=== PATIENT | female | born 1945 | race Caucasian/White ===

== ENCOUNTER 2017-07-27 05:30 | Emergency (ER) | payer OTHER ==
--- NOTE | 2017-07-27 06:13 | EDPHYS ---
Physician Documentation [facility] Name: Amber Acosta Age: 71 yrs Sex: Female : 1945 Arrival Date: 07/27/2017 Time: 05:31 Bed 15 Private MD: Lorraine Donnelly ED Physician Anish Lugo HPI: 07/27 05:59 This 71 yrs old Female presents to ER via Ambulatory with complaints of Leg kb Pain - Right. 05:59 The patient presents with pain that is chronic, and tenderness. The symptoms are kb located in the right low back. Onset: The symptoms/episode began/occurred last night. The pain does not radiate. Associated signs and symptoms: Pertinent positives: none. The problem was sustained from a chronic condition. Modifying factors: The patient symptoms are alleviated by nothing, the patient symptoms are aggravated by any movement. Severity of symptoms: At their worst the symptoms were mild, moderate, in the emergency department the symptoms are unchanged. The patient has not experienced similar symptoms in the past. The patient has not recently seen a physician. Pt states she worked in the yard yesterday and made her chronic back pain flare up. States right lower back pain that radiates down right leg. Has had this multiple times in the past and normally takes tylenol for it, but it did not help this time. Also reports ant bits to right ankle that have been there for a month. . Historical: - Allergies: 05:47 Bees; lp1 05:47 Codeine; lp1 05:47 Levofloxacin; lp1 05:47 METRONIDAZOLE; lp1 05:47 PENICILLINS; lp1 05:47 SHELLFISH; lp1 05:47 sulfamethoxazole; lp1 05:47 TRIMETHOPRIM; lp1 05:47 Wasps; lp1 - Home Meds: 05:47 Ativan Oral [Active]; Metoprolol Tartrate Oral [Active]; Simvastatin Oral [Active]; lp1 - PMHx: 05:47 Anxiety; Depression; Diabetes - NIDDM; HTN, CVA; kidney cancer; Migraines; lp1 - PSHx: 05:47 Hysterectomy; lp1 - Immunization history:: Adult Immunizations up to date. - Social history:: Smoking status: Patient/guardian denies using tobacco. ROS: 05:56 Constitutional: Negative for fever, chills, and weight loss, Cardiovascular: Negative kb for chest pain, palpitations, and edema, Respiratory: Negative for shortness of breath, cough, wheezing, and pleuritic chest pain, Abdomen/GI: Negative for abdominal pain, nausea, vomiting, diarrhea, and constipation, MS/Extremity: Negative for injury and deformity, Neuro: Negative for headache, weakness, numbness, tingling, and seizure. 05:56 Back: Positive for pain at rest, pain with movement, radiated pain, of the right low back. 05:56 Skin: Positive for erythema, of the right ankle and right Achilles, ant bites. Exam: 05:56 Constitutional: This is a well developed, well nourished patient who is awake, alert, kb and in no acute distress. Head/Face: Normocephalic, atraumatic. Chest/axilla: Normal chest wall appearance and motion. Nontender with no deformity. No lesions are appreciated. Cardiovascular: Regular rate and rhythm with a normal S1 and S2. No gallops, murmurs, or rubs. Normal PMI, no JVD. No pulse deficits. Respiratory: Lungs have equal breath sounds bilaterally, clear to auscultation and percussion. No rales, rhonchi or wheezes noted. No increased work of breathing, no retractions or nasal flaring. Abdomen/GI: Soft, non-tender, with normal bowel sounds. No distension or tympany. No guarding or rebound. No evidence of tenderness throughout. MS/ Extremity: Pulses equal, no cyanosis. Neurovascular intact. Full, normal range of motion. Neuro: Awake and alert, GCS 15, oriented to person, place, time, and situation. Cranial nerves II-XII grossly intact. Motor strength 5/5 in all extremities. Sensory grossly intact. Cerebellar exam normal. Normal gait. 05:56 Back: pain, that is mild, that is moderate, ROM is normal, normal spinal alignment noted. 05:56 Skin: Appearance: normal except for affected area, multiple small wounds with surrounding erythema . Vital Signs: 05:45 BP 191 / 98; Pulse 62; Resp 18; Temp 97.2(TE); Pulse Ox 96% on R/A; Weight 70.31 kg; lp1 Height 5 ft. 2 in. (157.48 cm); Pain 6/10; 06:40 BP 167 / 89; Pulse 70; Resp 18; Temp 97.6(O); Pulse Ox 97% on R/A; ea 05:45 Body Mass Index 28.35 (70.31 kg, 157.48 cm) lp1 MDM: 05:51 Patient medically screened. kb 05:52 Data reviewed: vital signs, nurses notes. Data interpreted: Pulse oximetry: on room air kb is 96 %. Interpretation: normal. Counseling: I had a detailed discussion with the patient and/or guardian regarding: the historical points, exam findings, and any diagnostic results supporting the discharge/admit diagnosis, the need for outpatient follow up, a family practitioner, to return to the emergency department if symptoms worsen or persist or if there are any questions or concerns that arise at home. Administered Medications: 06:10 Drug: TORadol 60 mg Route: IM; Site: left gluteus; ea 06:52 Follow up: Response: No adverse reaction ea Disposition: 07/27/17 06:12 Discharged to Home. Impression: Local infection of the skin and subcutaneous tissue, unspecified, Sciatica, right side. - Condition is Stable. - Discharge Instructions: Sciatica, [id number], Wound Infection, [id number]. - Prescriptions for Clindamycin HCl 300 mg Oral Capsule - take 1 capsule by ORAL route every 8 hours for 7 days; 21 capsule. orphenadrine citrate 100 mg Oral Tablet Sustained Release - take 1 tablet by ORAL route 2 times per day As needed; 20 tablet. - Medication Reconciliation Form, Thank You Letter, Antibiotic Education, Prescription Opioid Use form. - Follow up: Emergency Department; When: As needed; Reason: Worsening of condition. Follow up: Private Physician; When: 2 - 3 days; Reason: Recheck today's complaints, Continuance of care, Re-evaluation by your physician. Addendum: 07/31/2017 08:24 Co-signature as Attending Physician, Anish Lugo MD. g s Signatures: Jenny Rodriguez, ALEXANDER CROSS-Sofia Case RN RN lp1 Kiley Richardson RN RN ea Starr, Gregory, MD MD
--- NOTE | 2017-07-27 06:13 | ER ---
Nurse's Notes [facility] Name: Amber Acosta Age: 71 yrs Sex: Female : 1945 Arrival Date: 07/27/2017 Time: 05:31 Bed 15 Private MD: Lorraine Donnelly Diagnosis: Local infection of the skin and subcutaneous tissue, unspecified;Sciatica, right side Presentation: 07/27 05:42 Presenting complaint: Patient states: Pain from right hip down to toes, chronic pain lp1 that has flared up after working outside kneeling down pulling weeds yesterday; scabs, redness to lower right leg, states bitten by ants a couple months ago. Transition of care: patient was not received from another setting of care. Onset of symptoms was July 27, 2017 at 05:44. Care prior to arrival: None. 05:42 Method Of Arrival: Ambulatory lp1 05:42 Acuity: IVETTE 4 lp1 Historical: - Allergies: 05:47 Bees; lp1 05:47 Codeine; lp1 05:47 Levofloxacin; lp1 05:47 METRONIDAZOLE; lp1 05:47 PENICILLINS; lp1 05:47 SHELLFISH; lp1 05:47 sulfamethoxazole; lp1 05:47 TRIMETHOPRIM; lp1 05:47 Wasps; lp1 - Home Meds: 05:47 Ativan Oral [Active]; Metoprolol Tartrate Oral [Active]; Simvastatin Oral [Active]; lp1 - PMHx: 05:47 Anxiety; Depression; Diabetes - NIDDM; HTN, CVA; kidney cancer; Migraines; lp1 - PSHx: 05:47 Hysterectomy; lp1 - Immunization history:: Adult Immunizations up to date. - Social history:: Smoking status: Patient/guardian denies using tobacco. Screenin:47 Abuse screen: Denies threats or abuse. Denies injuries from another. Nutritional lp1 screening: No deficits noted. Tuberculosis screening: No symptoms or risk factors identified. Fall Risk None identified. Assessment: 05:50 General: Appears in no apparent distress. Behavior is calm, cooperative, appropriate ea for age. Pain: Complains of pain in right leg Pain currently is 9 out of 10 on a pain scale. Quality of pain is described as aching. Neuro: Level of Consciousness is awake, alert, obeys commands, Oriented to person, place, time, situation. Cardiovascular: Patient's skin is warm and dry. Respiratory: Respiratory effort is even, unlabored, Respiratory pattern is regular, symmetrical. GI: No signs and/or symptoms were reported involving the gastrointestinal system. : No signs and/or symptoms were reported regarding the genitourinary system. Derm: Skin is pink, warm \T\ dry. Vital Signs: 05:45 BP 191 / 98; Pulse 62; Resp 18; Temp 97.2(TE); Pulse Ox 96% on R/A; Weight 70.31 kg; lp1 Height 5 ft. 2 in. (157.48 cm); Pain 6/10; 06:40 BP 167 / 89; Pulse 70; Resp 18; Temp 97.6(O); Pulse Ox 97% on R/A; ea 05:45 Body Mass Index 28.35 (70.31 kg, 157.48 cm) lp1 ED Course: 05:31 Patient arrived in ED. am2 05:31 Lorraine Donnelly MD is Private Physician. am2 05:36 Kiley Richardson RN is Primary Nurse. ea 05:44 Triage completed. lp1 05:44 Arm band placed on left wrist. lp1 05:47 Patient has correct armband on for positive identification. lp1 05:51 Jenny Rodriguez FNP-C is [facility]. kb 05:51 Anish Lugo MD is Attending Physician. kb 06:52 No provider procedures requiring assistance completed. Patient did not have IV access ea during this emergency room visit. Administered Medications: 06:10 Drug: TORadol 60 mg Route: IM; Site: left gluteus; ea 06:52 Follow up: Response: No adverse reaction ea Outcome: 06:12 Discharge ordered by . kb 06:40 Discharged to home ambulatory. ea 06:40 Condition: improved 06:40 Discharge instructions given to patient, Instructed on discharge instructions, follow up and referral plans. medication usage, Demonstrated understanding of instructions, follow-up care, medications, Prescriptions given X 2. 06:57 Patient left the ED. ea Signatures: Jenny Rodriguez FNP-C FNP-Ckb Pena, Laura, RN RN lp1 Adelina Valdes am2 Kiley Richardson RN RN ea Corrections: (The following items were deleted from the chart) 05:48 05:42 Presenting complaint: Patient states: Pain from right hip down to toes, chronic lp1 pain that has flared up after working outside kneeling down pulling weeds yesterday lp1
[2017-07-27] MEDS ORDERED: KETOROLAC 30 MG/ML INJ ONE (06:23)
[2017-07-27 07:03] VITALS: BP 167/89; TEMP 97.6; O2SAT 97
== END 2017-07-27 06:57 | disposition home or self-care (01) ==
LOC: ER 05:30
DX: M54.31 Sciatica, right side (principal); L08.9 Local infection of the skin and subcutaneous tissue, unspecified; I10 Essential (primary) hypertension; E11.9 Type 2 diabetes mellitus without complications; F41.9 Anxiety disorder, unspecified; F32.9 Major depressive disorder, single episode, unspecified; Z85.528 Personal history of other malignant neoplasm of kidney; Z86.73 Personal history of transient ischemic attack (TIA), and cerebral infarction without residual deficits; Z88.0 Allergy status to penicillin; Z88.2 Allergy status to sulfonamides; Z88.5 Allergy status to narcotic agent; Z88.8 Allergy status to other drugs, medicaments and biological substances; Z91.013 Allergy to seafood; Z91.030 Bee allergy status; Z91.038 Other insect allergy status
CPT/HCPCS: 96372; 99283

== ENCOUNTER 2017-07-29 11:59 | Emergency (ER) | payer OTHER ==
[2017-07-29] MEDS ORDERED: HYDRALAZINE HCL 20 MG/ML VIAL ONE (12:34)
[2017-07-29 12:38] LABS: Absolute Lymphocytes (CBC) 1.9 K/uL (0.7-4.9); Absolute Monocytes 0.7 K/uL (0.1-1.3); Absolute Neutrophil 3.2 K/uL (1.8-8.0); Basophils % 1.2 % (0-1.3); Eosinophils % 3.4 % (0-4.4); Hematocrit 44.1 % (36.0-45.0); MCH 28.6 pg (27.0-35.0); MCV 87.4 fL (80-100); MPV 10.6 fL (7.6-11.3); Monocytes % 11.2 % (3.3-12.3); RBC Red Blood Cell Count 5.05 M/uL (3.86-4.86)
[2017-07-29 12:53] LABS: Protime INR 0.97
[2017-07-29 13:06] LABS: CKMB Creatine Kinase MB 3.7 ng/ml (0.3-4.0)
[2017-07-29 13:26] LABS: Potassium 3.8 mEq/L (3.6-5.0)
[2017-07-29 13:32] LABS: Bilirubin Direct 0.1 mg/dL (0-0.2); Magnesium 1.9 mg/dL (1.8-2.5); Protein, Total 6.9 g/dL (6.0-8.3)
[2017-07-29 13:43] LABS: Urine Blood 2+ (NEG); Urine Glucose NEGATIVE (NEG); Urine Protein NEGATIVE (NEG); Urine pH 6.5 (5.0-7.0)
[2017-07-29] MEDS ORDERED: HYDROCODONE/APAP 5/325 MG TAB ONE (14:03)
[2017-07-29] MEDS ORDERED: cloNIDine HCl 0.1 MG TAB ONE (14:03)
--- NOTE | 2017-07-29 14:28 | EDPHYS ---
Physician Documentation [facility] Name: Amber Acosta Age: 71 yrs Sex: Female : 1945 Arrival Date: 07/29/2017 Time: 12:00 Bed 6 Private MD: ED Physician Jaxson Rios HPI: 07/29 12:03 This 71 yrs old Female presents to ER via Unassigned with complaints of kav Headache. 12:31 The patient complains of pain to the forehead, right oriental orthodox and left oriental orthodox. The kav patient describes the headache as aching, constant. Onset: The symptoms/episode began/occurred acutely, this morning. Associated signs and symptoms: Pertinent positives: nausea. Severity of symptoms: At its worst the pain was moderate, just prior to arrival. 12:55 Headache History: The patient has had previous headaches and this one is similar to kav previous episodes. The symptoms are alleviated by nothing. the symptoms are aggravated by patient reports that she did not take her blood pressure medication this morning. The patient has experienced similar episodes in the past. The patient has not recently seen a physician. . Historical: - Allergies: 12:06 Bees; hb 12:06 Codeine; hb 12:06 Levofloxacin; hb 12:06 METRONIDAZOLE; hb 12:06 PENICILLINS; hb 12:06 SHELLFISH; hb 12:06 sulfamethoxazole; hb 12:06 TRIMETHOPRIM; hb 12:06 Wasps; hb - Home Meds: 12:06 Ativan Oral [Active]; Metoprolol Tartrate Oral [Active]; Simvastatin Oral [Active]; hb - PMHx: 12:06 Anxiety; Depression; Diabetes - NIDDM; HTN, CVA; kidney cancer; Migraines; hb - PSHx: 12:06 Hysterectomy; hb - Immunization history:: Adult Immunizations up to date. - Social history:: Smoking status: Patient/guardian denies using tobacco. - Family history:: not pertinent. - Hospitalizations: : No recent hospitalization is reported. - History obtained from: son. ROS: 14:12 Constitutional: Negative for fever, chills, and weight loss, Eyes: Negative for injury, kav pain, redness, and discharge, ENT: Negative for injury, pain, and discharge, Neck: Negative for injury, pain, and swelling, Cardiovascular: Negative for chest pain, palpitations, and edema, Respiratory: Negative for shortness of breath, cough, wheezing, and pleuritic chest pain, Abdomen/GI: Negative for abdominal pain, nausea, vomiting, diarrhea, and constipation, Back: Negative for injury and pain, : Negative for injury, bleeding, discharge, and swelling, MS/Extremity: Negative for injury and deformity, Skin: Negative for injury, rash, and discoloration, Psych: Negative for depression, anxiety, suicide ideation, homicidal ideation, and hallucinations, Allergy/Immunology: Negative for hives, rash, and allergies, Endocrine: Negative for neck swelling, polydipsia, polyuria, polyphagia, and marked weight changes, Hematologic/Lymphatic: Negative for swollen nodes, abnormal bleeding, and unusual bruising. 14:12 Neuro: Positive for headache. Exam: 14:12 Constitutional: This is a well developed, well nourished patient who is awake, alert, kav and in no acute distress. Head/Face: Normocephalic, atraumatic. Eyes: Pupils equal round and reactive to light, extra-ocular motions intact. Lids and lashes normal. Conjunctiva and sclera are non-icteric and not injected. Cornea within normal limits. Periorbital areas with no swelling, redness, or edema. ENT: Nares patent. No nasal discharge, no septal abnormalities noted. Tympanic membranes are normal and external auditory canals are clear. Oropharynx with no redness, swelling, or masses, exudates, or evidence of obstruction, uvula midline. Mucous membranes moist. Neck: Trachea midline, no thyromegaly or masses palpated, and no cervical lymphadenopathy. Supple, full range of motion without nuchal rigidity, or vertebral point tenderness. No Meningismus. Chest/axilla: Normal chest wall appearance and motion. Nontender with no deformity. No lesions are appreciated. Cardiovascular: Regular rate and rhythm with a normal S1 and S2. No gallops, murmurs, or rubs. Normal PMI, no JVD. No pulse deficits. Respiratory: Lungs have equal breath sounds bilaterally, clear to auscultation and percussion. No rales, rhonchi or wheezes noted. No increased work of breathing, no retractions or nasal flaring. Abdomen/GI: Soft, non-tender, with normal bowel sounds. No distension or tympany. No guarding or rebound. No evidence of tenderness throughout. Back: No spinal tenderness. No costovertebral tenderness. Full range of motion. Skin: Warm, dry with normal turgor. Normal color with no rashes, no lesions, and no evidence of cellulitis. MS/ Extremity: Pulses equal, no cyanosis. Neurovascular intact. Full, normal range of motion. Psych: Awake, alert, with orientation to person, place and time. Behavior, mood, and affect are within normal limits. 14:12 Neuro: Orientation: is normal, appropriate for stated age, no acute changes, per family, Mentation: is normal, appropriate for stated age, no acute changes, per family, responsive to voice lucid, able to follow commands, Memory: is normal, appropriate for stated age, no acute changes, per family, Cranial nerves: grossly normal, is grossly normal based on the patient's age, no acute changes, CN I not tested, CN II- XII are normal as tested, extraocular movements are intact, Facial palsy and sensory deficits are absent. no gross hearing deficit,. Nystagmus is absent. Speech is clear and appropriate. Gag reflex present. Tongue strength is normal, Cerebellar function: is grossly normal, is grossly normal based on the patient's age, no acute changes, Motor: is normal, Sensation: is normal, no obvious gross deficits, appropriate no acute changes, Deep tendon reflexes are normal, Babinski testing is normal, seizure activity, is not displayed by the patient, Abnormal movements: there are no abnormal movements. 14:15 ECG was reviewed by the Attending Physician. [facility] Vital Signs: 12:03 BP 223 / 114; Pulse 68; Resp 16; Temp 98; Pulse Ox 100% on R/A; Pain 5/10; hb 12:35 BP 198 / 102; Pulse 65; Resp 15; Pulse Ox 100% on R/A; hb 13:09 BP 190 / 100; Pulse 67; Resp 17; Pulse Ox 100% on R/A; Pain 5/10; hb 13:58 BP 186 / 105; Pulse 66; Resp 16; Pulse Ox 100% on R/A; Pain 7/10; hb 14:21 BP 143 / 74; Pulse 67; Resp 14; Pulse Ox 100% on R/A; hb Ruthy Coma Score: 14:12 Eye Response: spontaneous(4). Verbal Response: oriented(5). Motor Response: obeys kav commands(6). Total: 15. MDM: 12:03 Patient medically screened. ka 14:12 Data reviewed: vital signs, nurses notes. 07/29 12:05 Order name: Basic Metabolic Panel; Complete Time: 14:16 v 07/29 14:16 Interpretation: Normal except: GFR 61. 07/29 12:05 Order name: BNP; Complete Time: 14:16 v 07/29 14:16 Interpretation: Within normal limits: BNP 75. 07/29 12:05 Order name: CBC with Diff; Complete Time: 14:16 v 07/29 14:16 Interpretation: Normal except: RBC 5.05. 07/29 12:05 Order name: Ckmb; Complete Time: 14:16 v 07/29 14:17 Interpretation: Within normal limits. 07/29 12:05 Order name: CPK; Complete Time: 14:16 v 07/29 14:17 Interpretation: Within normal limits. 07/29 12:05 Order name: LFT's; Complete Time: 14:16 v 07/29 14:17 Interpretation: Within normal limits. 07/29 12:05 Order name: Magnesium; Complete Time: 14:16 v 07/29 14:17 Interpretation: Within normal limits. 07/29 12:05 Order name: PT-INR; Complete Time: 14:16 v 07/29 14:17 Interpretation: Within normal limits. 07/29 12:05 Order name: Ptt, Activated; Complete Time: 14:16 07/29 14:17 Interpretation: Within normal limits. 07/29 12:05 Order name: Troponin (emerg Dept Use Only); Complete Time: 14:16 v 07/29 14:17 Interpretation: Within normal limits. 07/29 13:29 Order name: Urine Dipstick--Ancillary (enter results); Complete Time: 14:16 07/29 14:16 Interpretation: Normal except: UBLD 2+. v 07/29 12:05 Order name: EKG; Complete Time: 12:05 v 07/29 12:05 Order name: Cardiac monitoring; Complete Time: 12:29 v 07/29 12:05 Order name: EKG - Nurse/Tech; Complete Time: 12:29 v 07/29 12:05 Order name: IV Saline Lock; Complete Time: 12:07/29 12:05 Order name: Labs collected and sent; Complete Time: :07/29 12:05 Order name: O2 Per Protocol; Complete Time: 12:07/29 12:05 Order name: O2 Sat Monitoring; Complete Time: 12:07/29 12:05 Order name: Urine Dipstick-Ancillary (obtain specimen); Complete Time: 13:07/29 13:29 Order name: Diet Regular; Complete Time: 13:29 hb Administered Medications: 12:25 Drug: hydrALAZINE 10 mg Route: IV; Rate: bolus; Site: right antecubital; hb 13:00 Follow up: Response: No adverse reaction hb 13:28 Drug: hydrALAZINE 10 mg Route: IV; Rate: bolus; Site: right antecubital; hb 13:58 Follow up: Response: No adverse reaction hb 13:44 Drug: [place] 5 mg-325 mg 1 tabs Route: PO; hb 13:44 Drug: cloNIDine 0.2 mg Route: PO; hb Disposition: 16:12 Co-signature as Attending Physician, Jaxson Rios MD. rn Disposition: 07/29/17 14:27 Discharged to Home. Impression: Essential (primary) hypertension, Headache. - Condition is Stable. - Discharge Instructions: Hypertension, How to Take Your Blood Pressure, [id number], General Headache Without Cause, [id number]. - Medication Reconciliation Form, Thank You Letter, Antibiotic Education, Prescription Opioid Use form. - Follow up: Private Physician; Reason: Recheck today's complaints, Continuance of care, Re-evaluation by your physician. Follow up: Jose Antonio Finn MD; When: 2 - 3 days; Reason: Recheck today's complaints, Continuance of care, Re-evaluation by your physician. - Problem is new. - Symptoms have improved. - Notes: please call and schedule an appointment with dr. stevenson/cardiology in 2-3 days for DX: Essential Hypertension Signatures: Dispatcher [employer] EDMS Ana Maria Avalos, LIFE INSURANCE UNDERWRITER LIFE INSURANCE UNDERWRITER Jaxson Morales MD MD rn Attema, Lee RN RN la1 Chavez, Chio, RN RN hb
--- NOTE | 2017-07-29 14:28 | ER ---
Nurse's Notes [facility] Name: Amber Acosta Age: 71 yrs Sex: Female : 1945 Arrival Date: 07/29/2017 Time: 12:00 Bed 6 Private MD: Diagnosis: Essential (primary) hypertension;Headache Presentation: 07/29 12:00 Presenting complaint: EMS states: Called out for headache that began an hour ago. BP hb 214/104, HR 64. Did not take any Tylenol or her morning BP meds. Hx hypertension, CVA. Transition of care: patient was not received from another setting of care. Onset of symptoms. Care prior to arrival: IV initiated. 20 GA, in the left antecubital area, Glucose check: 92. 12:00 Method Of Arrival: EMS hb 12:00 Acuity: IVETTE 3 hb Triage Assessment: 12:09 Headache History: The patient has had previous headaches and this one is similar to hb previous episodes. Historical: - Allergies: 12:06 Bees; hb 12:06 Codeine; hb 12:06 Levofloxacin; hb 12:06 METRONIDAZOLE; hb 12:06 PENICILLINS; hb 12:06 SHELLFISH; hb 12:06 sulfamethoxazole; hb 12:06 TRIMETHOPRIM; hb 12:06 Wasps; hb - Home Meds: 12:06 Ativan Oral [Active]; Metoprolol Tartrate Oral [Active]; Simvastatin Oral [Active]; hb - PMHx: 12:06 Anxiety; Depression; Diabetes - NIDDM; HTN, CVA; kidney cancer; Migraines; hb - PSHx: 12:06 Hysterectomy; hb - Immunization history:: Adult Immunizations up to date. - Social history:: Smoking status: Patient/guardian denies using tobacco. - Family history:: not pertinent. - Hospitalizations: : No recent hospitalization is reported. - History obtained from: son. Screenin:07 Abuse screen: Denies threats or abuse. Denies injuries from another. Nutritional hb screening: No deficits noted. Tuberculosis screening: No symptoms or risk factors identified. Fall Risk Total Gonzalez Fall Scale indicates Low Risk Score (25-44 pts). Fall prevention measures have been instituted. Side Rails Up X 2 Frequent Obs/Assesments occuring Family Present and informed to notify staff if they need to leave bedside As available Patient and Family Educated on Fall Prevention Program and strategies. Assessment: 12:06 General: Appears in no apparent distress. Behavior is calm, cooperative, Reports hb headache. 12:07 Pain: Pain currently is 5 out of 10 on a pain scale. Neuro: Level of Consciousness is hb awake, alert, obeys commands, Oriented to person, place, situation. Cardiovascular: Capillary refill < 3 seconds Patient's skin is warm and dry. Respiratory: Airway is patent Respiratory effort is even, unlabored, Respiratory pattern is regular, symmetrical, Breath sounds are clear bilaterally. GI: No signs and/or symptoms were reported involving the gastrointestinal system. : No signs and/or symptoms were reported regarding the genitourinary system. EENT: No signs and/or symptoms were reported regarding the EENT system. Derm: No signs and/or symptoms reported regarding the dermatologic system. Skin is pink, warm \T\ dry. Musculoskeletal: No signs and/or symptoms reported regarding the musculoskeletal system. 13:00 Reassessment: Patient appears in no apparent distress at this time. Patient and/or hb family updated on plan of care and expected duration. Pain level reassessed. Patient is alert, oriented x 3, equal unlabored respirations, skin warm/dry/pink. 13:00 Reassessment: Pt to bathroom with assistance. Urine specimen provided. Assisted back to bed. Bed locked in low position. Call light within reach. Pt c/o hunger and thirst. BP 200s/100s, TELECOMMUNICATIONS ANALYST Robbie notified. Repeat hydralazine administered as ordered. Food try ordered as requested. 13:58 Reassessment: Patient appears in no apparent distress at this time. Patient and/or hb family updated on plan of care and expected duration. Pain level reassessed. Patient is alert, oriented x 3, equal unlabored respirations, skin warm/dry/pink. 14:37 Reassessment: Discharge ordered, awaiting transportation at this time. Vital Signs: 12:03 BP 223 / 114; Pulse 68; Resp 16; Temp 98; Pulse Ox 100% on R/A; Pain 5/10; hb 12:35 BP 198 / 102; Pulse 65; Resp 15; Pulse Ox 100% on R/A; hb 13:09 BP 190 / 100; Pulse 67; Resp 17; Pulse Ox 100% on R/A; Pain 5/10; hb 13:58 BP 186 / 105; Pulse 66; Resp 16; Pulse Ox 100% on R/A; Pain 7/10; hb 14:21 BP 143 / 74; Pulse 67; Resp 14; Pulse Ox 100% on R/A; hb Herlong Coma Score: 14:12 Eye Response: spontaneous(4). Verbal Response: oriented(5). Motor Response: obeys kav commands(6). Total: 15. ED Course: 12:00 Patient arrived in ED. hb 12:03 Ana Maria Avalos FNP is [facility]. kav 12:03 Jaxson Rios MD is Attending Physician. kav 12:03 Triage completed. hb 12:06 Arm band placed on right wrist. hb 12:07 Patient has correct armband on for positive identification. Bed in low position. Call hb light in reach. Side rails up X2. 12:13 Chio Chavez, RN is Primary Nurse. hb 12:20 Inserted saline lock: 20 gauge in right antecubital area, using aseptic technique. hb Blood collected. 14:26 Jose Antonio Finn MD is Referral Physician. kav 14:36 No provider procedures requiring assistance completed. IV discontinued, intact, ss bleeding controlled, No redness/swelling at site. Pressure dressing applied. Administered Medications: 12:25 Drug: hydrALAZINE 10 mg Route: IV; Rate: bolus; Site: right antecubital; hb 13:00 Follow up: Response: No adverse reaction hb 13:28 Drug: hydrALAZINE 10 mg Route: IV; Rate: bolus; Site: right antecubital; hb 13:58 Follow up: Response: No adverse reaction hb 13:44 Drug: [place] 5 mg-325 mg 1 tabs Route: PO; hb 13:44 Drug: cloNIDine 0.2 mg Route: PO; hb Outcome: 14:27 Discharge ordered by . kav 14:36 Discharged to home ambulatory. ss 14:36 Condition: stable 14:36 Discharge instructions given to patient, Instructed on discharge instructions, follow up and referral plans. medication usage, Demonstrated understanding of instructions, follow-up care, medications. 14:46 Patient left the ED. la1 Signatures: Ana Maria Avalos FNP FNP kav Smirch, Shelby, RN RN ss Attema, Lee, RN RN la1 Chio Chavez, MARCI RN hb Corrections: (The following items were deleted from the chart) 12:07 12:03 BP 223 / 114; Pulse 68bpm; Resp 16bpm; Pulse Ox 100% RA; Temp 98F; Pain 8/10; hb hb 12:08 12:06 General: Appears in no apparent distress. Behavior is calm, cooperative, hb hb 12:09 12:07 Neuro: Level of Consciousness is awake, alert, obeys commands, Oriented to hb person, place, time, situation, hb 14:22 14:15 BP 178 / 97; Pulse 65bpm; Resp 16bpm; Pulse Ox 100% RA; Pain 5/10; hb hb
[2017-07-29 14:50] VITALS: TEMP 98; O2SAT 100
[2017-07-29 14:54] VITALS: BP 143/74
--- NOTE | 2017-07-30 06:30 | EKG ---
Test Date: 2017-07-29 Test Time: 12:26:44 Hot Box Operator: MEASUREMENT RESULTS: Intervals: Rate: 60 MN: 162 QRSD: 86 QT: 432 QTc: 432 [place]: P: 4 MN: 162 QRS: 12 T: 11 INTERPRETIVE STATEMENTS: Normal sinus rhythm Nonspecific T wave abnormality Abnormal ECG Compared to ECG 04/11/2016 15:29:16 T-wave abnormality now present Electronically Signed On 07-30-17 06:29:12 CDT by Hardeep Diamond
== END 2017-07-29 14:46 | disposition home or self-care (01) ==
LOC: ER 11:59
DX: I10 Essential (primary) hypertension (principal); E11.9 Type 2 diabetes mellitus without complications; F41.9 Anxiety disorder, unspecified; F32.9 Major depressive disorder, single episode, unspecified; Z85.528 Personal history of other malignant neoplasm of kidney; Z88.2 Allergy status to sulfonamides; Z88.3 Allergy status to other anti-infective agents; Z88.5 Allergy status to narcotic agent; Z88.8 Allergy status to other drugs, medicaments and biological substances; Z91.013 Allergy to seafood; Z91.030 Bee allergy status; Z91.038 Other insect allergy status
CPT/HCPCS: 36415; 80048; 80076; 81003; 82550; 82553; 83735; 83880; 84484; 85025; 85610; 85730; 93005; 96374; 99284; J0360

== ENCOUNTER 2017-07-31 09:28 | Emergency (ER) | payer OTHER ==
[2017-07-31] MEDS ORDERED: HYDROCODONE/APAP 7.5/325 MG TAB ONE (10:46)
--- NOTE | 2017-07-31 11:21 | ER ---
Nurse's Notes [facility] Name: Amber Acosta Age: 71 yrs Sex: Female : 1945 Arrival Date: 07/31/2017 Time: 09:34 Bed 20 Private MD: Lorraine Donnelly Diagnosis: Migraine Presentation: 07/31 09:50 Presenting complaint: Patient states: my head hurts on top and sore throat, i have had tw2 a headache for a couple of days, they gave me a shot it helped but it is back. Transition of care: patient was not received from another setting of care. Onset of symptoms was July 30, 2017. Care prior to arrival: None. 09:50 Method Of Arrival: Wheelchair tw2 09:50 Acuity: IVETTE 4 tw2 Triage Assessment: 09:53 Headache History: The patient has had previous headaches and this one is similar to tw2 previous episodes. General: Appears in no apparent distress. Behavior is calm, cooperative, appropriate for age. Pain: Complains of pain in top of head Pain currently is 9 out of 10 on a pain scale. Pain began 2-3 days ago. Also complains of no other associated symptoms. Neuro: Level of Consciousness is awake, alert, obeys commands, Oriented to person, place, time, situation. Historical: - Allergies: 09:53 Bees; 09:53 Codeine; 09:53 Levofloxacin; tw 09:53 METRONIDAZOLE; tw 09:53 SHELLFISH; tw 09:53 sulfamethoxazole; tw 09:53 TRIMETHOPRIM; 09:53 Wasps; 09:53 PENICILLINS; tw - Home Meds: 09:53 Simvastatin Oral [Active]; Metoprolol Tartrate Oral [Active]; Ativan Oral [Active]; tw2 - PMHx: 09:53 Anxiety; Diabetes - NIDDM; HTN, CVA; kidney cancer; Migraines; Depression; tw2 - PSHx: 09:53 Hysterectomy; tw2 - Immunization history:: Adult Immunizations up to date. - Social history:: Smoking status: Patient/guardian denies using tobacco. Screenin:33 Abuse screen: Denies threats or abuse. Denies injuries from another. Nutritional ch screening: No deficits noted. Tuberculosis screening: No symptoms or risk factors identified. Fall Risk None identified. Assessment: 10:33 Reassessment: Patient appears in no apparent distress at this time. Patient and/or ch family updated on plan of care and expected duration. Pain level reassessed. Patient is alert, oriented x 3, equal unlabored respirations, skin warm/dry/pink. General: Appears in no apparent distress. comfortable, Behavior is calm, cooperative, appropriate for age. Pain: Complains of pain in head and back of neck Pain currently is 7 out of 10 on a pain scale. Pain began suddenly. Neuro: Level of Consciousness is awake, alert, obeys commands, Oriented to person, place, time, situation, [employer] are equal bilaterally Moves all extremities. Full function Gait is steady, Speech is normal, Facial symmetry appears normal, Facial symmetry: tongue is midline, Pupils are PERRLA. Cardiovascular: Heart tones S1 S2 present. Respiratory: Airway is patent Respiratory effort is even, unlabored, Breath sounds are clear bilaterally. GI: No signs and/or symptoms were reported involving the gastrointestinal system. : No signs and/or symptoms were reported regarding the genitourinary system. Derm: Skin is pink, warm \T\ dry. Vital Signs: 09:51 BP 176 / 87; Pulse 62; Resp 16; Temp 98.1(O); Pulse Ox 95% on R/A; Weight 63.5 kg (R); tw2 Height 5 ft. 2 in. (157.48 cm) (R); Pain 9/10; 10:33 BP 156 / 78; Pulse 61; Resp 15; Temp 98.3; Pulse Ox 99% on R/A; ch 09:51 Body Mass Index 25.61 (63.50 kg, 157.48 cm) tw2 ED Course: 09:34 Patient arrived in ED. mr 09:34 Lorraine Donnelly MD is Private Physician. mr 09:51 Triage completed. tw2 09:55 Everardo Scott PA is [facility]. jr8 09:55 Jaxson Rios MD is Attending Physician. jr8 10:00 Arm band placed on left wrist. Patient placed in an exam room, on a stretcher, on pulse ch oximetry. 10:20 Rody Sanchez RN is Primary Nurse. ch 10:33 No apparent distress. Resting quietly. ch 10:33 Patient has correct armband on for positive identification. Placed in gown. Bed in low ch position. Call light in reach. Side rails up X 1. Pulse ox on. NIBP on. 10:33 No provider procedures requiring assistance completed. 11:20 Lorraine Donnelly MD is Referral Physician. terrence 15:50 Patient did not have IV access during this emergency room visit. ch Administered Medications: 10:33 Drug: [place] (7.5 mg-325 mg) 1 tabs Route: PO; Outcome: 11:20 Discharge ordered by . terrence 11:40 Discharged to home via wheelchair, with family. 11:40 Condition: improved 11:40 Discharge instructions given to patient, family, Instructed on discharge instructions, follow up and referral plans. medication usage, Demonstrated understanding of instructions, follow-up care, medications, Prescriptions given X 2. 11:41 Patient left the ED. Signatures: Rody Sanchez, RN RN Eleanor Gallardo mr Paulettevernonnola, Everardo, PA PA jr8 Shakira Dent RN RN tw2
--- NOTE | 2017-07-31 11:21 | EDPHYS ---
Physician Documentation [facility] Name: Amber Acosta Age: 71 yrs Sex: Female : 1945 Arrival Date: 07/31/2017 Time: 09:34 Bed 20 Private MD: Lorraine Donnelly ED Physician Jaxson Rios HPI: 07/31 10:40 This 71 yrs old Female presents to ER via Wheelchair with complaints of jr8 Headache. 10:40 The patient complains of pain to the top of head and forehead. The patient describes jr8 the headache as constant, pounding. Onset: The symptoms/episode began/occurred acutely, 2 day(s) ago. Associated signs and symptoms: The patient has no apparent associated signs or symptoms. Severity of symptoms: At its worst the pain was mild, in the emergency department the pain is unchanged. Headache History: The patient has had previous headaches and this one is similar to previous episodes. The symptoms are alleviated by nothing. the symptoms are aggravated by lights, movement, noise. The patient has experienced similar episodes in the past, a few times. The patient has been recently seen by a physician: with similar presenting complaints, told to return for re-evaluation in the emergency department. Historical: - Allergies: 09:53 Bees; tw2 09:53 Codeine; tw2 09:53 Levofloxacin; tw2 09:53 METRONIDAZOLE; tw2 09:53 SHELLFISH; tw2 09:53 sulfamethoxazole; tw2 09:53 TRIMETHOPRIM; tw2 09:53 Wasps; tw2 09:53 PENICILLINS; tw2 - Home Meds: 09:53 Simvastatin Oral [Active]; Metoprolol Tartrate Oral [Active]; Ativan Oral [Active]; tw2 - PMHx: 09:53 Anxiety; Diabetes - NIDDM; HTN, CVA; kidney cancer; Migraines; Depression; tw2 - PSHx: 09:53 Hysterectomy; tw2 - Immunization history:: Adult Immunizations up to date. - Social history:: Smoking status: Patient/guardian denies using tobacco. ROS: 10:40 Eyes: Negative for injury, pain, redness, and discharge, ENT: Negative for injury, jr8 pain, and discharge, Neck: Negative for injury, pain, and swelling, Cardiovascular: Negative for chest pain, palpitations, and edema, Respiratory: Negative for shortness of breath, cough, wheezing, and pleuritic chest pain, Abdomen/GI: Negative for abdominal pain, nausea, vomiting, diarrhea, and constipation, Back: Negative for injury and pain, MS/Extremity: Negative for injury and deformity, Skin: Negative for injury, rash, and discoloration. 10:40 Neuro: Positive for headache, Negative for altered mental status, dizziness, gait disturbance, loss of consciousness, numbness, seizure activity, speech changes, syncope, near syncope, tingling, tinnitus, tremor, visual changes, weakness. Exam: 10:40 Eyes: Pupils equal round and reactive to light, extra-ocular motions intact. Lids and jr8 lashes normal. Conjunctiva and sclera are non-icteric and not injected. Cornea within normal limits. Periorbital areas with no swelling, redness, or edema. ENT: Nares patent. No nasal discharge, no septal abnormalities noted. Tympanic membranes are normal and external auditory canals are clear. Oropharynx with no redness, swelling, or masses, exudates, or evidence of obstruction, uvula midline. Mucous membranes moist. Neck: Trachea midline, no thyromegaly or masses palpated, and no cervical lymphadenopathy. Supple, full range of motion without nuchal rigidity, or vertebral point tenderness. No Meningismus. Cardiovascular: Regular rate and rhythm with a normal S1 and S2. No gallops, murmurs, or rubs. Normal PMI, no JVD. No pulse deficits. Respiratory: Lungs have equal breath sounds bilaterally, clear to auscultation and percussion. No rales, rhonchi or wheezes noted. No increased work of breathing, no retractions or nasal flaring. Abdomen/GI: Soft, non-tender, with normal bowel sounds. No distension or tympany. No guarding or rebound. No evidence of tenderness throughout. Back: No spinal tenderness. No costovertebral tenderness. Full range of motion. Skin: Warm, dry with normal turgor. Normal color with no rashes, no lesions, and no evidence of cellulitis. MS/ Extremity: Pulses equal, no cyanosis. Neurovascular intact. Full, normal range of motion. 10:40 Neuro: Orientation: to person, place, time \T\ situation. Mentation: is normal, Memory: is normal, immediate memory is intact, recent memory is intact, remote memory is intact, Cranial nerves: CN I not tested, CN II- XII are normal as tested, extraocular movements are intact, Facial palsy and sensory deficits are absent. Nystagmus is absent. Speech is clear and appropriate. Tongue strength is normal, Cerebellar function: normal finger to nose testing, heel to hansen testing is normal, Motor: moves all fours, strength is 5/5 in all extremities, Sensation: no obvious gross deficits, Gait: is unsteady, seizure activity, is not displayed by the patient, Abnormal movements: there are no abnormal movements. Vital Signs: 09:51 BP 176 / 87; Pulse 62; Resp 16; Temp 98.1(O); Pulse Ox 95% on R/A; Weight 63.5 kg (R); tw2 Height 5 ft. 2 in. (157.48 cm) (R); Pain 9/10; 10:33 BP 156 / 78; Pulse 61; Resp 15; Temp 98.3; Pulse Ox 99% on R/A; ch 09:51 Body Mass Index 25.61 (63.50 kg, 157.48 cm) tw2 MDM: 09:55 Patient medically screened. jr8 11:19 Data reviewed: vital signs, nurses notes, and as a result, I will discharge patient. jr8 Data interpreted: Pulse oximetry: on room air is 99 %. Interpretation: normal. Counseling: I had a detailed discussion with the patient and/or guardian regarding: the historical points, exam findings, and any diagnostic results supporting the discharge/admit diagnosis, the need for outpatient follow up, a family practitioner, to return to the emergency department if symptoms worsen or persist or if there are any questions or concerns that arise at home. ED course: Patient sleeping in exam room. Stated that she is feeling better upon waking her up. Administered Medications: 10:33 Drug: [place] (7.5 mg-325 mg) 1 tabs Route: PO; ch Disposition: 12:40 Co-signature as Attending Physician, Jaxson Rios MD. rn Disposition: 07/31/17 11:20 Discharged to Home. Impression: Migraine. - Condition is Stable. - Discharge Instructions: Migraine Headache. - Medication Reconciliation Form, Thank You Letter, Antibiotic Education, Prescription Opioid Use form. - Follow up: Lorraine Donnelly MD; When: 1 - 2 days; Reason: Recheck today's complaints, Continuance of care, Re-evaluation by your physician. - Problem is new. - Symptoms have improved. Signatures: Rody Sanchez, RN RN Jaxson Rios MD MD rn Roszak, Josh, PA PA jr8 Shakira Dent RN RN tw2
[2017-07-31 11:47] VITALS: BP 156/78; TEMP 98.3; O2SAT 99
== END 2017-07-31 11:41 | disposition home or self-care (01) ==
LOC: ER 09:28
DX: G43.909 Migraine, unspecified, not intractable, without status migrainosus (principal); E11.9 Type 2 diabetes mellitus without complications; F41.9 Anxiety disorder, unspecified; Z88.6 Allergy status to analgesic agent; Z88.2 Allergy status to sulfonamides; Z91.030 Bee allergy status; Z88.1 Allergy status to other antibiotic agents; Z88.0 Allergy status to penicillin
CPT/HCPCS: 99283

== ENCOUNTER 2017-08-13 12:36 | Emergency (ER) | payer OTHER ==
[2017-08-13] MEDS ORDERED: NA CHLORIDE 0.9% 1,000 ML ONE (13:13)
[2017-08-13 13:42] LABS: Absolute Lymphocytes (CBC) 2.5 K/uL (0.7-4.9); Absolute Monocytes 0.8 K/uL (0.1-1.3); Absolute Neutrophil 3.4 K/uL (1.8-8.0); Basophils % 0.8 % (0-1.3); Eosinophils % 2.7 % (0-4.4); Hematocrit 42.1 % (36.0-45.0); Lymphocytes % 35.9 % (15.3-44.8); MCH 28.6 pg (27.0-35.0); MCV 86.5 fL (80-100); MPV 11.1 fL (7.6-11.3); Monocytes % 11.2 % (3.3-12.3); RBC Red Blood Cell Count 4.87 M/uL (3.86-4.86)
--- NOTE | 2017-08-13 13:44 | RAD REPORT ---
EXAM DESCRIPTION: CT - Stone Protocol - 08/13/2017 1:31 pm CLINICAL HISTORY: Abdominal pain COMPARISON: CT study May 22, 2017 TECHNIQUE: Axial 5 mm thick images were obtained without oral or IV contrast. The [id number] span s the entirety of the system partially obscuring uppermost abdomen and lung bases. All CT scans are performed using dose optimization technique as appropriate and may include automated exposure control or mA/KV adjustment according to patient size. FINDINGS: No hydronephrosis is present and no obstructing ureteral calculi. No suspicious renal mass es. Isodense masses and pyelonephritis are not excluded on a stone protocol CT scan. Postsurgical or post trauma changes to the left kidney are noted. Dystrophic calcifications are present. There is chr onic stranding in the left side perinephric fat. No calcifications within the contracted urinary blad norma. Uterus is absent. Ovaries are atrophic. Imaged portions of the liver, spleen and pancreas show no suspicious findings on non-contrast imaging . Cholecystectomy clips are present. No biliary tree dilatation. No right adrenal gland abnormality. Left adrenal gland fullness has not changed from April. Long-term significance is doubtful. No gastric dilatation or gastric wall thickening. Moderate sigmoid diverticulosis present without div erticulitis. No mass or bulky lymphadenopathy. Very small fat only umbilical hernia is unchanged. No free air, vance e fluid or inflammatory stranding. No significant bony abnormality. IMPRESSION: Sigmoid colonic diverticulosis without diverticulitis. No acute GI process identifiable. No acute finding. The above detailed findings are stable from April 2017. Isodense masses and pyelonephritis are not excluded on stone protocol technique.
[2017-08-13 13:48] LABS: Potassium 3.7 mEq/L (3.6-5.0)
--- NOTE | 2017-08-13 13:51 | EKG ---
Test Date: 2017-08-13 Test Time: 13:43:14 Licensed Tax Consultant: ALEKSANDRA MEASUREMENT RESULTS: Intervals: Rate: 58 VA: 160 QRSD: 88 QT: 424 QTc: 416 [place]: P: 64 VA: 160 QRS: 8 T: 54 INTERPRETIVE STATEMENTS: Sinus bradycardia Moderate voltage criteria for LVH, may be normal variant Borderline ECG Compared to ECG 07/29/2017 12:26:44 Left ventricular hypertrophy now present Sinus rhythm no longer present T-wave abnormality no longer present Electronically Signed On 08-13-17 13:50:33 CDT by Hardeep Diamond
[2017-08-13 13:53] LABS: Urine Blood TRACE (NEG); Urine Glucose NEGATIVE (NEG); Urine Protein NEGATIVE (NEG); Urine Specific Gravity 1.025 (1.005-1.030); Urine pH 5.5 (5.0-7.0)
[2017-08-13 13:54] LABS: Bilirubin Direct 0.1 mg/dL (0-0.2); Bilirubin Total 0.8 mg/dL (0.3-1.2); Magnesium 1.9 mg/dL (1.8-2.5); Protein, Total 6.9 g/dL (6.0-8.3)
[2017-08-13 13:56] LABS: CKMB Creatine Kinase MB 5.4 ng/ml (0.3-4.0)
--- NOTE | 2017-08-13 13:57 | RAD REPORT ---
EXAM DESCRIPTION: RAD - Chest Single View - 08/13/2017 1:42 pm CLINICAL HISTORY: Abdominal pain, abdominal distention COMPARISON: Portable chest January 2016 TECHNIQUE: AP portable chest image was obtained 1337 hours . FINDINGS: Lung volumes are relatively low compared to the prior imaging. Lung markings are not subst antially different. No failure, infiltrate or mass. Trachea is midline. Heart and vasculature are nor mal. No measurable pleural effusion and no pneumothorax. No gross bony abnormality seen. No acute aor tic findings suspected. IMPRESSION: No acute cardiopulmonary process. No significant change from comparison.
[2017-08-13 14:01] LABS: Protime INR 0.94
[2017-08-13] MEDS ORDERED: ONDANSETRON 4 MG/2 ML VIAL ONE (14:31)
[2017-08-13] MEDS ORDERED: KETOROLAC 30 MG/ML INJ ONE (14:31)
[2017-08-13] MEDS ORDERED: AMLODIPINE 5 MG TAB ONE (14:40)
--- NOTE | 2017-08-13 14:44 | EDPHYS ---
Physician Documentation [facility] Name: Amber Acosta Age: 71 yrs Sex: Female : 1945 Arrival Date: 08/13/2017 Time: 12:39 Bed 7 Private MD: Lorraine Donnelly ED Physician Marcos Pink HPI: 08/13 14:36 This 71 yrs old Female presents to ER via Ambulatory with complaints of bi Abdominal Pain. 14:36 The patient complains of pain in the left mid back. The pain does not radiate. Onset: bi The symptoms/episode began/occurred 1 day(s) ago. Modifying factors: The symptoms are alleviated by nothing. the symptoms are aggravated by nothing. The patient presents with pain that is acute. The symptoms are located in the left mid back. Onset: The symptoms/episode began/occurred 1 day(s) ago. Modifying factors: The patient symptoms are alleviated by remaining still, the patient symptoms are aggravated by lifting, movement, walking. Historical: - Allergies: 13:00 Bees; jl7 13:00 Codeine; jl7 13:00 Levofloxacin; jl7 13:00 METRONIDAZOLE; jl7 13:00 PENICILLINS; jl7 13:00 SHELLFISH; jl7 13:00 sulfamethoxazole; jl7 13:00 TRIMETHOPRIM; jl7 13:00 Wasps; jl7 - Home Meds: 13:00 Ativan Oral [Active]; Metoprolol Tartrate Oral [Active]; Simvastatin Oral [Active]; jl7 - PMHx: 13:00 Anxiety; Depression; Diabetes - NIDDM; HTN, CVA; kidney cancer; Migraines; jl7 - PSHx: 13:00 Hysterectomy; jl7 - Immunization history:: Adult Immunizations up to date, Adult Immunizations unknown. - Social history:: Smoking status: unknown Smoking status: Patient/guardian denies using tobacco. - Family history:: not pertinent. ROS: 14:36 Constitutional: Negative for fever, chills, and weight loss, Eyes: Negative for injury, bi pain, redness, and discharge, ENT: Negative for injury, pain, and discharge, Neck: Negative for injury, pain, and swelling, Cardiovascular: Negative for chest pain, palpitations, and edema, Respiratory: Negative for shortness of breath, cough, wheezing, and pleuritic chest pain, : Negative for injury, bleeding, discharge, and swelling, MS/Extremity: Negative for injury and deformity, Skin: Negative for injury, rash, and discoloration, Neuro: Negative for headache, weakness, numbness, tingling, and seizure, Psych: Negative for depression, anxiety, suicide ideation, homicidal ideation, and hallucinations, Allergy/Immunology: Negative for hives, rash, and allergies, Endocrine: Negative for neck swelling, polydipsia, polyuria, polyphagia, and marked weight changes, Hematologic/Lymphatic: Negative for swollen nodes, abnormal bleeding, and unusual bruising. 14:36 Abdomen/GI: Positive for abdominal pain, of the posterior aspect of left lateral abdomen. 14:36 Back: Positive for pain at rest, pain with movement, of the left mid back. Exam: 14:36 Constitutional: This is a well developed, well nourished patient who is awake, alert, bi and in no acute distress. Head/Face: Normocephalic, atraumatic. Eyes: Pupils equal round and reactive to light, extra-ocular motions intact. Lids and lashes normal. Conjunctiva and sclera are non-icteric and not injected. Cornea within normal limits. Periorbital areas with no swelling, redness, or edema. ENT: Nares patent. No nasal discharge, no septal abnormalities noted. Tympanic membranes are normal and external auditory canals are clear. Oropharynx with no redness, swelling, or masses, exudates, or evidence of obstruction, uvula midline. Mucous membranes moist. Neck: Trachea midline, no thyromegaly or masses palpated, and no cervical lymphadenopathy. Supple, full range of motion without nuchal rigidity, or vertebral point tenderness. No Meningismus. Chest/axilla: Normal chest wall appearance and motion. Nontender with no deformity. No lesions are appreciated. Cardiovascular: Regular rate and rhythm with a normal S1 and S2. No gallops, murmurs, or rubs. Normal PMI, no JVD. No pulse deficits. Respiratory: Lungs have equal breath sounds bilaterally, clear to auscultation and percussion. No rales, rhonchi or wheezes noted. No increased work of breathing, no retractions or nasal flaring. Abdomen/GI: Soft, non-tender, with normal bowel sounds. No distension or tympany. No guarding or rebound. No evidence of tenderness throughout. Skin: Warm, dry with normal turgor. Normal color with no rashes, no lesions, and no evidence of cellulitis. MS/ Extremity: Pulses equal, no cyanosis. Neurovascular intact. Full, normal range of motion. Neuro: Awake and alert, GCS 15, oriented to person, place, time, and situation. Cranial nerves II-XII grossly intact. Motor strength 5/5 in all extremities. Sensory grossly intact. Cerebellar exam normal. Normal gait. Psych: Awake, alert, with orientation to person, place and time. Behavior, mood, and affect are within normal limits. 14:36 Back: pain, that is very mild, that is mild, ROM is painful, normal spinal alignment noted, CVA tenderness, is absent, vertebral tenderness, is not appreciated, muscle spasm, is not present, Straight leg raises: right lower extremity does not illicit pain, left lower extremity does not illicit pain. Vital Signs: 13:00 BP 205 / 98; Pulse 85; Resp 16 S; Temp 98.5(O); Pulse Ox 100% on R/A; Weight 63.5 kg 7 (R); Height 5 ft. 2 in. (157.48 cm) (R); Pain 8/10; 13:47 BP 212 / 100; Pulse 58; Resp 12 S; Pulse Ox 96% on R/A; 7 13:58 BP 214 / 106; Pulse 60; Resp 16; Pulse Ox 96% ; jl7 14:45 BP 216 / 102; Pulse 62; Resp 16; Pulse Ox 100% ; Pain 0/10; 7 13:00 Body Mass Index 25.61 (63.50 kg, 157.48 cm) [facility] 13:58 provider notified [facility] MDM: 12:52 Patient medically screened. [facility] 14:47 Data reviewed: vital signs, nurses notes, lab test result(s), EKG, radiologic studies. [facility] 08/13 12:53 Order name: Basic Metabolic Panel; Complete Time: 14:23 [facility] 08/13 12:53 Order name: BNP; Complete Time: 14:23 [facility] 08/13 12:53 Order name: CBC with Diff; Complete Time: 14:23 08/13 12:53 Order name: Ckmb; Complete Time: 14:23 08/13 12:53 Order name: CPK; Complete Time: 14:23 [facility] 08/13 12:53 Order name: LFT's; Complete Time: 14:23 [facility] 08/13 12:53 Order name: Magnesium; Complete Time: 14:23 [facility] 08/13 12:53 Order name: PT-INR; Complete Time: 14:23 [facility] 08/13 12:53 Order name: Ptt, Activated; Complete Time: 14:23 [facility] 08/13 12:53 Order name: Troponin (emerg Dept Use Only); Complete Time: 14:23 [facility] 08/13 12:53 Order name: XRAY Chest (1 view); Complete Time: 14:23 [facility] 08/13 12:53 Order name: Lipase; Complete Time: 14:23 [facility] 08/13 12:54 Order name: Urine Culture [facility] 08/13 13:36 Order name: Urine Dipstick--Ancillary (enter results); Complete Time: 14:23 08/13 12:53 Order name: EKG; Complete Time: 12:54 [facility] 08/13 12:53 Order name: Cardiac monitoring; Complete Time: 13:23 [facility] 08/13 12:53 Order name: EKG - Nurse/Tech; Complete Time: 13:47 [facility] 08/13 12:53 Order name: IV Saline Lock; Complete Time: 13:23 [facility] 08/13 12:53 Order name: Labs collected and sent; Complete Time: 13:23 [facility] 08/13 12:53 Order name: O2 Per Protocol; Complete Time: 13:24 [facility] 08/13 12:53 Order name: O2 Sat Monitoring; Complete Time: 13:24 [facility] 08/13 12:53 Order name: Urine Dipstick-Ancillary (obtain specimen); Complete Time: 13:24 [facility] 08/13 12:53 Order name: CT Stone Protocol; Complete Time: 14:23 [facility] Administered Medications: 13:14 Drug: NS 0.9% 1000 ml Route: IV; Rate: 1 bolus; Site: right antecubital; tw2 14:58 Follow up: IV Status: Completed infusion jl7 14:35 Drug: Zofran 4 mg Route: IVP; Site: right antecubital; tw2 14:59 Follow up: Response: No adverse reaction jl7 14:38 Drug: TORadol 30 mg Route: IVP; Site: right antecubital; tw2 14:58 Follow up: Response: No adverse reaction; Pain is decreased jl7 14:43 Drug: Norvasc 10 mg Route: PO; tw2 14:59 Follow up: Response: No adverse reaction jl7 14:58 Not Given (Other Intervention Used): fentaNYL (PF) 25 mcg IVP once jl7 Disposition: 08/13/17 14:44 Discharged to Home. Impression: Pain in thoracic spine, Contusion of left back wall of thorax, Essential (primary) hypertension. - Condition is Stable. - Discharge Instructions: Back Pain, Adult, Chronic Back Pain, Hypertension, Musculoskeletal Pain, Thoracic Strain, Thoracic Strain, Adct-ye-Vtyf, Hypertension, Orhs-vo-Lphy, How to Take Your Blood Pressure, Aaqf-oi-Gbdu, Aspirin and Your Heart, Back Exercises, Rpoy-wb-Wgbk, Managing Your High Blood Pressure. - Prescriptions for Norvasc 5 mg Oral Tablet - take 1 tablet by ORAL route once daily; 20 tablet. Tramadol 50 mg Oral Tablet - take 1 tablet by ORAL route every 8 hours as needed; 24 tablet. Motrin IB 200 mg Oral Tablet - take 2 tablet by ORAL route every 6 hours As needed as needed with food; 20 tablet. - Medication Reconciliation Form, Thank You Letter, Antibiotic Education, Prescription Opioid Use form. - Follow up: Lorraine Donnelly MD; When: 2 - 3 days; Reason: Recheck today's complaints, Continuance of care, Re-evaluation by your physician. - Problem is new. - Symptoms have improved. Signatures: Dispatcher [employer] Marcos Ramirez MD MD cha Wise, Tara, RN RN tw2 Joel Tejada RN RN jl7
--- NOTE | 2017-08-13 14:44 | ER ---
Nurse's Notes [facility] Name: Amber Acosta Age: 71 yrs Sex: Female : 1945 Arrival Date: 08/13/2017 Time: 12:39 Bed 7 Private MD: Lorraine Donnelly Diagnosis: Pain in thoracic spine;Contusion of left back wall of thorax;Essential (primary) hypertension Presentation: 08/13 12:57 Presenting complaint: Patient states: "I don't know if I pulled a muscle or if I have a jl7 kidney stone." Reports pain to left flank since yesterday, rated 8/10, dull achy. Transition of care: patient was not received from another setting of care. Onset of symptoms was August 12, 2017. Initial Sepsis Screen: Does the patient meet any 2 criteria? No. Patient's initial sepsis screen is negative. Does the patient have a suspected source of infection? No. Patient's initial sepsis screen is negative. Care prior to arrival: None. 12:57 Method Of Arrival: Ambulatory [facility] 12:57 Acuity: IVETTE 3 jl7 Triage Assessment: 13:00 General: Appears in no apparent distress. uncomfortable, Behavior is calm, cooperative. jl7 Pain: Complains of pain in left flank Pain currently is 8 out of 10 on a pain scale. Quality of pain is described as aching, dull, Pain began 1 day ago. Is continuous. EENT: No signs and/or symptoms were reported regarding the EENT system. Neuro: Level of Consciousness is awake, alert, obeys commands, Oriented to person, place, time, situation. Cardiovascular: Patient's skin is warm and dry. Respiratory: Airway is patent Respiratory effort is even, unlabored, Respiratory pattern is regular, symmetrical. GI: Patient currently denies diarrhea, nausea, vomiting. : Denies burning with urination, pain. Derm: Skin is pink, warm \\T\\ dry. Musculoskeletal: No signs and/or symptoms reported regarding the musculoskeletal system. Historical: - Allergies: 13:00 Bees; 7 13:00 Codeine; 13:00 Levofloxacin; 13:00 METRONIDAZOLE; 7 13:00 PENICILLINS; 13:00 SHELLFISH; 13:00 sulfamethoxazole; 13:00 TRIMETHOPRIM; 13:00 Wasps; jl7 - Home Meds: 13:00 Ativan Oral [Active]; Metoprolol Tartrate Oral [Active]; Simvastatin Oral [Active]; jl7 - PMHx: 13:00 Anxiety; Depression; Diabetes - NIDDM; HTN, CVA; kidney cancer; Migraines; jl7 - PSHx: 13:00 Hysterectomy; jl7 - Immunization history:: Adult Immunizations up to date, Adult Immunizations unknown. - Social history:: Smoking status: unknown Smoking status: Patient/guardian denies using tobacco. - Family history:: not pertinent. Screenin:56 Abuse screen: Denies threats or abuse. Nutritional screening: No deficits noted. tw2 Tuberculosis screening: No symptoms or risk factors identified. Fall Risk None identified. Assessment: 13:04 GI: Bowel sounds present X 4 quads. Abd is soft and non tender X 4 quads. Patient jl7 currently denies diarrhea, nausea, vomiting. 13:50 Reassessment: No changes from previously documented assessment. Patient and/or family jl7 updated on plan of care and expected duration. Pain level reassessed. Patient is alert, oriented x 3, equal unlabored respirations, skin warm/dry/pink. pt back from CT, no signs of distress noted. Provider notified of BP, no new orders received at this time. 14:45 Reassessment: Patient and/or family updated on plan of care and expected duration. Pain jl7 level reassessed. Patient is alert, oriented x 3, equal unlabored respirations, skin warm/dry/pink. Patient states feeling better. Vital Signs: 13:00 BP 205 / 98; Pulse 85; Resp 16 S; Temp 98.5(O); Pulse Ox 100% on R/A; Weight 63.5 kg jl7 (R); Height 5 ft. 2 in. (157.48 cm) (R); Pain 8/10; 13:47 BP 212 / 100; Pulse 58; Resp 12 S; Pulse Ox 96% on R/A; jl7 13:58 BP 214 / 106; Pulse 60; Resp 16; Pulse Ox 96% ; jl7 14:45 BP 216 / 102; Pulse 62; Resp 16; Pulse Ox 100% ; Pain 0/10; jl7 13:00 Body Mass Index 25.61 (63.50 kg, 157.48 cm) jl7 13:58 provider notified jl7 ED Course: 12:39 Patient arrived in ED. mr 12:40 Lorraine Donnelly MD is Private Physician. mr 12:52 Marcos Pink MD is Attending Physician. bi 12:56 Bed in low position. Call light in reach. manager monitoring on. Pulse ox on. NIBP on. tw2 12:57 Joel Tejada, RN is Primary Nurse. jl7 12:59 Triage completed. jl7 13:00 Arm band placed on right wrist. jl7 13:12 Urine collected: clean catch specimen, clear, benny colored. jb1 13:[address] via stretcher. sj 13:19 No provider procedures requiring assistance completed. tw2 13:29 CT completed. Patient tolerated procedure well. Patient moved back from CT. sj 13:30 CT Stone Protocol In Process Unspecified. EDMS 13:41 X-ray completed. Portable x-ray completed in exam room. Patient tolerated procedure sw well. 13:42 XRAY Chest (1 view) In Process Unspecified. EDMS 13:51 EKG done, by installation tech. reviewed by Marcos Pink MD. tc 14:43 Lorraine Donnelly MD is Referral Physician. bi 15:00 IV discontinued, intact, bleeding controlled, No redness/swelling at site. Pressure jl7 dressing applied. Administered Medications: 13:14 Drug: NS 0.9% 1000 ml Route: IV; Rate: 1 bolus; Site: right antecubital; tw2 14:58 Follow up: IV Status: Completed infusion jl7 14:35 Drug: Zofran 4 mg Route: IVP; Site: right antecubital; tw2 14:59 Follow up: Response: No adverse reaction jl7 14:38 Drug: TORadol 30 mg Route: IVP; Site: right antecubital; tw2 14:58 Follow up: Response: No adverse reaction; Pain is decreased jl7 14:43 Drug: Norvasc 10 mg Route: PO; tw2 14:59 Follow up: Response: No adverse reaction jl7 14:58 Not Given (Other Intervention Used): fentaNYL (PF) 25 mcg IVP once jl7 Outcome: 14:44 Discharge ordered by . bi 15:00 Discharged to home ambulatory. jl7 15:00 Condition: stable 15:00 Discharge instructions given to patient, Instructed on discharge instructions, follow up and referral plans. medication usage, Demonstrated understanding of instructions, follow-up care, medications, Prescriptions given X 3. 15:01 Patient left the ED. jl7 Addendum: 08/17/2017 11:51 Addendum: Culture Results: Positive urine culture. Patient was not prescribed i w antibiotics at discharge. Report given to MICHAEL for further evaluation and then to instrument repair specialist for follow up with patient. Phone call Attempt #1 pt denies urinary symptoms, has follow up appt with PCP. Signatures: Dispatcher [employer] EDMS Chandu Lerner jbMarcos Napier MD MD cha Rivera, Maria mr Plascencia, Nicole Alston, RN RN iw Addis Franco, block making machine operator EKG [facility] Isaura Flaherty Tara, RN RN tw2 Joel Tejada, RN RN jl7
[2017-08-13] MEDS ORDERED: FENTANYL CITR 100 MCG/2 ML IV ONE (15:00)
[2017-08-13 15:06] VITALS: TEMP 98.5
[2017-08-13 15:09] VITALS: BP 216/102; O2SAT 100
== END 2017-08-13 15:01 | disposition home or self-care (01) ==
LOC: ER 12:36
DX: S20.222A Contusion of left back wall of thorax, initial encounter (principal); I10 Essential (primary) hypertension; F41.9 Anxiety disorder, unspecified; F32.9 Major depressive disorder, single episode, unspecified; X50.9XXA Other and unspecified overexertion or strenuous movements or postures, initial encounter; Y93.01 Activity, walking, marching and hiking; Y92.9 Unspecified place or not applicable; Z88.0 Allergy status to penicillin; Z88.2 Allergy status to sulfonamides; Z88.3 Allergy status to other anti-infective agents; Z88.5 Allergy status to narcotic agent; Z88.8 Allergy status to other drugs, medicaments and biological substances; Z91.013 Allergy to seafood; Z91.030 Bee allergy status; Z91.038 Other insect allergy status; Z85.528 Personal history of other malignant neoplasm of kidney
CPT/HCPCS: 36415; 71045; 74176; 76377; 80048; 80076; 81003; 82550; 82553; 83690; 83735; 83880; 84484; 85025; 85610; 85730; 87086; 87088; 93005; J2405; J7030; 87077; 87186; 96361; 96374; 96375; 99285

== ENCOUNTER 2017-10-04 17:14 | Emergency (ER) | payer OTHER ==
--- NOTE | 2017-10-04 18:31 | ER ---
Nurse's Notes [facility] Name: Amber Acosta Age: 71 yrs Sex: Female : 1945 Arrival Date: 10/04/2017 Time: 17:19 Bed 12 Private MD: Lorraine Donnelly Diagnosis: Cellulitis of right lower limb Presentation: 10/04 18:05 Presenting complaint: Patient states: got into some ants 3 days ago, yumi redness and iw swelling to RLE where the bites are, denies fever, c/o pain to leg. Transition of care: patient was not received from another setting of care. Onset of symptoms was October 01, 2017. Risk Assessment: Do you want to hurt yourself or someone else? Patient reports no desire to harm self or others. Initial Sepsis Screen: Does the patient meet any 2 criteria? No. Patient's initial sepsis screen is negative. Does the patient have a suspected source of infection? No. Patient's initial sepsis screen is negative. Care prior to arrival: None. 18:05 Method Of Arrival: Ambulatory iw 18:05 Acuity: IVETTE 4 iw Triage Assessment: 18:37 Bite description: bite sustained to right leg by an unknown animal, animal information: iw vaccination(s) is not applicable. Historical: - Allergies: 18:07 Bees; iw 18:07 Codeine; iw 18:07 METRONIDAZOLE; iw 18:07 PENICILLINS; iw 18:07 SHELLFISH; iw 18:07 sulfamethoxazole; iw 18:07 Levofloxacin; iw 18:07 TRIMETHOPRIM; iw 18:07 Wasps; iw - PMHx: 18:07 Anxiety; Depression; Diabetes - NIDDM; HTN, CVA; kidney cancer; Migraines; iw - PSHx: 18:07 Hysterectomy; iw - Immunization history:: Adult Immunizations up to date. - Social history:: Smoking status: Patient/guardian denies using tobacco. - Ebola Screening: : Patient negative for fever greater than or equal to 101.5 degrees Fahrenheit, and additional compatible Ebola Virus Disease symptoms Patient denies exposure to infectious person Patient denies travel to an Ebola-affected area in the 21 days before illness onset No symptoms or risks identified at this time. Screenin:13 Abuse screen: Denies threats or abuse. Denies injuries from another. Nutritional iw screening: No deficits noted. Tuberculosis screening: No symptoms or risk factors identified. Fall Risk None identified. Assessment: 18:12 General: Appears in no apparent distress. Behavior is calm, cooperative. Pain: iw Complains of pain in lateral aspect of right calf. Neuro: Level of Consciousness is awake, alert, obeys commands, Oriented to person, place, time, situation, Moves all extremities. Full function. Cardiovascular: Patient's skin is warm and dry. Derm: Skin is fragile, has skin tears on right LE. 18:37 Derm: Skin is pink, warm \T\ dry. iw Vital Signs: 18:07 BP 195 / 116; Pulse 68; Resp 18; Temp 98.6(TE); Pulse Ox 96% on R/A; Weight 63.5 kg; iw Height 5 ft. 2 in. (157.48 cm); Pain 7/10; 18:13 BP 187 / 95; Pulse 67; iw 18:07 Body Mass Index 25.61 (63.50 kg, 157.48 cm) iw ED Course: 17:19 Patient arrived in ED. mr 17:19 Lorraine Donnelly MD is Private Physician. mr 18:06 Triage completed. iw 18:07 Arm band placed on. iw 18:11 [facility] Scott [facility]. jr8 18:11 Jaxson Rios MD is Attending Physician. jr8 18:12 Nicole Lo, MARCI is Primary Nurse. iw 18:31 Lorraine Donnelly MD is Referral Physician. jr8 18:36 No provider procedures requiring assistance completed. Patient did not have IV access iw during this emergency room visit. 18:38 Patient has correct armband on for positive identification. iw Administered Medications: No medications were administered Outcome: 18:31 Discharge ordered by . jr8 18:37 Patient left the ED. iw 18:37 Discharged to home ambulatory, with friend. iw 18:37 Condition: good 18:37 Discharge instructions given to patient, Instructed on discharge instructions, follow up and referral plans. medication usage, Demonstrated understanding of instructions, follow-up care, medications, Prescriptions given X 2. Signatures: Eleanor Gallardo mr Nicole Lo, RN RN iw Everardo Scott PA PA jr8 Corrections: (The following items were deleted from the chart) 18:13 18:12 Pain: Complains of pain in lateral aspect of left calf iw iw
--- NOTE | 2017-10-04 18:31 | EDPHYS ---
Physician Documentation [facility] Name: Amber Acosta Age: 71 yrs Sex: Female : 1945 Arrival Date: 10/04/2017 Time: 17:19 Bed 12 Private MD: Lorraine Donnelly ED Physician Jaxson Rios HPI: 10/04 18:28 This 71 yrs old Female presents to ER via Ambulatory with complaints of jr8 Insect Bite. 18:28 Onset: The symptoms/episode began/occurred acutely, 2 day(s) ago. Possible cause(s): jr8 fire ant bite. Associated signs and symptoms: The patient has no apparent associated signs or symptoms. Modifying factors: the symptoms are alleviated by nothing, the symptoms are aggravated by nothing. Severity of symptoms: At their worst the symptoms were mild, in the emergency department the symptoms are unchanged. The patient has not experienced similar symptoms in the past. The patient has not recently seen a physician. Patient stated that she was bit by a bunch of ants. Stated that since then has had pain to leg and increased redness . Historical: - Allergies: 18:07 Bees; iw 18:07 Codeine; iw 18:07 METRONIDAZOLE; iw 18:07 PENICILLINS; iw 18:07 SHELLFISH; iw 18:07 sulfamethoxazole; iw 18:07 Levofloxacin; iw 18:07 TRIMETHOPRIM; iw 18:07 Wasps; iw - PMHx: 18:07 Anxiety; Depression; Diabetes - NIDDM; HTN, CVA; kidney cancer; Migraines; iw - PSHx: 18:07 Hysterectomy; iw - Immunization history:: Adult Immunizations up to date. - Social history:: Smoking status: Patient/guardian denies using tobacco. - Ebola Screening: : Patient negative for fever greater than or equal to 101.5 degrees Fahrenheit, and additional compatible Ebola Virus Disease symptoms Patient denies exposure to infectious person Patient denies travel to an Ebola-affected area in the 21 days before illness onset No symptoms or risks identified at this time. ROS: 18:28 Eyes: Negative for injury, pain, redness, and discharge, ENT: Negative for injury, jr8 pain, and discharge, Neck: Negative for injury, pain, and swelling, Cardiovascular: Negative for chest pain, palpitations, and edema, Respiratory: Negative for shortness of breath, cough, wheezing, and pleuritic chest pain, Abdomen/GI: Negative for abdominal pain, nausea, vomiting, diarrhea, and constipation, Back: Negative for injury and pain, MS/Extremity: Negative for injury and deformity, Neuro: Negative for headache, weakness, numbness, tingling, and seizure. 18:28 Skin: Positive for erythema, of the right leg. Exam: 18:28 Cardiovascular: Regular rate and rhythm with a normal S1 and S2. No gallops, murmurs, jr8 or rubs. Normal PMI, no JVD. No pulse deficits. Respiratory: Lungs have equal breath sounds bilaterally, clear to auscultation and percussion. No rales, rhonchi or wheezes noted. No increased work of breathing, no retractions or nasal flaring. MS/ Extremity: Pulses equal, no cyanosis. Neurovascular intact. Full, normal range of motion. Neuro: Awake and alert, GCS 15, oriented to person, place, time, and situation. Cranial nerves II-XII grossly intact. Motor strength 5/5 in all extremities. Sensory grossly intact. Cerebellar exam normal. Normal gait. 18:28 Skin: Patient has multiple ant bites to right lower leg. Large areas of erythema surrounds bites. Mild warmth to lower right leg where bites are . Vital Signs: 18:07 BP 195 / 116; Pulse 68; Resp 18; Temp 98.6(TE); Pulse Ox 96% on R/A; Weight 63.5 kg; iw Height 5 ft. 2 in. (157.48 cm); Pain 7/10; 18:13 BP 187 / 95; Pulse 67; iw 18:07 Body Mass Index 25.61 (63.50 kg, 157.48 cm) iw MDM: 18:11 Patient medically screened. jr8 18:28 Data reviewed: vital signs, nurses notes, and as a result, I will discharge patient. jr8 Data interpreted: Pulse oximetry: on room air is 96 %. Interpretation: normal. Counseling: I had a detailed discussion with the patient and/or guardian regarding: the historical points, exam findings, and any diagnostic results supporting the discharge/admit diagnosis, the need for outpatient follow up, a family practitioner, to return to the emergency department if symptoms worsen or persist or if there are any questions or concerns that arise at home. Administered Medications: No medications were administered Disposition: 18:38 Co-signature as Attending Physician, Jaxson Rios MD. rn Disposition: 10/04/17 18:31 Discharged to Home. Impression: Cellulitis of right lower limb. - Condition is Stable. - Discharge Instructions: Cellulitis. - Prescriptions for Bactroban 2 % Topical Ointment - Apply to affected area 1 application by TOPICAL route every 12 hours; 30 gram. Clindamycin HCl 300 mg Oral Capsule - take 1 capsule by ORAL route every 8 hours for 10 days; 30 capsule. - Medication Reconciliation Form, Thank You Letter, Antibiotic Education, Prescription Opioid Use form. - Follow up: Lorraine Donnelly MD; When: 5 - 6 days; Reason: Recheck today's complaints, Continuance of care, Re-evaluation by your physician. - Problem is new. - Symptoms have improved. Signatures: Nicole Lo RN RN iw Jaxson Rios MD MD rn Roszak, Josh, PA PA jr8 Corrections: (The following items were deleted from the chart) 18:37 18:31 10/04/2017 18:31 Discharged to Home. Impression: Cellulitis of right lower limb. iw Condition is Stable. Forms are Medication Reconciliation Form, Thank You Letter, Antibiotic Education, Prescription Opioid Use. Follow up: Lorraine Donnelly; When: 5 - 6 days; Reason: Recheck today's complaints, Continuance of care, Re-evaluation by your physician. Problem is new. Symptoms have improved. jr8
[2017-10-04 18:45] VITALS: TEMP 98.6; O2SAT 96
[2017-10-04 18:46] VITALS: BP 187/95
== END 2017-10-04 18:37 | disposition home or self-care (01) ==
LOC: ER 17:14
DX: L03.115 Cellulitis of right lower limb (principal); F41.9 Anxiety disorder, unspecified; F32.9 Major depressive disorder, single episode, unspecified; E11.9 Type 2 diabetes mellitus without complications; I10 Essential (primary) hypertension; C64.9 Malignant neoplasm of unspecified kidney, except renal pelvis; Z88.2 Allergy status to sulfonamides; Z88.8 Allergy status to other drugs, medicaments and biological substances; Z88.6 Allergy status to analgesic agent; Z91.030 Bee allergy status; Z91.038 Other insect allergy status; Z88.0 Allergy status to penicillin; Z91.013 Allergy to seafood; Z86.73 Personal history of transient ischemic attack (TIA), and cerebral infarction without residual deficits
CPT/HCPCS: 99282

== ENCOUNTER 2017-10-26 15:01 | Emergency (ER) | payer OTHER ==
[2017-10-26] MEDS ORDERED: predniSONE 20 MG TAB ONE (15:40)
[2017-10-26] MEDS ORDERED: DIPHENHYDRAMINE 25 MG TAB/CAP ONE (15:40)
[2017-10-26] MEDS ORDERED: FAMOTIDINE 20 MG TAB ONE (15:40)
--- NOTE | 2017-10-26 15:51 | ER ---
Nurse's Notes [facility] Name: Amber Acosta Age: 71 yrs Sex: Female : 1945 Arrival Date: 10/26/2017 Time: 15:04 Bed 13 Private MD: Lorraine Donnelly Diagnosis: Cellulitis of right lower limb Presentation: 10/26 15:07 Presenting complaint: Patient states: Rash to right lower leg for 3 weeks. Patient has aj scratches noted to rash. Transition of care: patient was not received from another setting of care. Onset of symptoms was October 08, 2017. Risk Assessment: Do you want to hurt yourself or someone else? Patient reports no desire to harm self or others. Initial Sepsis Screen: Does the patient meet any 2 criteria? No. Patient's initial sepsis screen is negative. Does the patient have a suspected source of infection? No. Patient's initial sepsis screen is negative. Care prior to arrival: None. 15:07 Method Of Arrival: Ambulatory aj 15:07 Acuity: IVETTE 4 aj Triage Assessment: 15:09 General: Appears in no apparent distress. comfortable, Behavior is calm, cooperative, aj appropriate for age. Pain: Complains of pain in right leg. Neuro: Level of Consciousness is awake, alert, obeys commands, Oriented to person, place, time, situation, Appropriate for age. Respiratory: Airway is patent Respiratory effort is even, unlabored, Respiratory pattern is regular, symmetrical. Derm: Skin is intact, is healthy with good turgor, Skin is pink, warm \T\ dry. normal, Rash noted that is red, on right hansen and anterior aspect of right ankle. Historical: - Allergies: 15:09 Bees; aj 15:09 Codeine; aj 15:09 Levofloxacin; aj 15:09 METRONIDAZOLE; aj 15:09 PENICILLINS; aj 15:09 SHELLFISH; aj 15:09 sulfamethoxazole; aj 15:09 TRIMETHOPRIM; aj 15:09 Wasps; aj - Home Meds: 15:09 Ativan Oral [Active]; Metoprolol Tartrate Oral [Active]; Simvastatin Oral [Active]; aj - PMHx: 15:09 Anxiety; Depression; Diabetes - NIDDM; HTN, CVA; kidney cancer; Migraines; aj - PSHx: 15:09 Hysterectomy; aj - Immunization history:: Adult Immunizations up to date. - Social history:: Smoking status: Patient/guardian denies using tobacco. - Ebola Screening: : Patient negative for fever greater than or equal to 101.5 degrees Fahrenheit, and additional compatible Ebola Virus Disease symptoms Patient denies exposure to infectious person Patient denies travel to an Ebola-affected area in the 21 days before illness onset No symptoms or risks identified at this time. Screenin:30 Abuse screen: Denies threats or abuse. Denies injuries from another. Nutritional hb screening: No deficits noted. 15:30 Tuberculosis screening: No symptoms or risk factors identified. Fall Risk None hb identified. Assessment: 15:30 General: Appears in no apparent distress. Behavior is calm, cooperative. hb 15:30 Pain: Denies pain. Neuro: Level of Consciousness is awake, alert, obeys commands, hb Oriented to person, place, time, situation. Cardiovascular: Capillary refill < 3 seconds Patient's skin is warm and dry. Respiratory: Airway is patent Trachea midline Respiratory effort is even, unlabored, Respiratory pattern is regular, symmetrical, Breath sounds are clear bilaterally. Derm: Skin is healthy with good turgor, multiple insect bites to BLE noted. Vital Signs: 15:09 BP 140 / 89; Pulse 83; Resp 16; Temp 98.3; Pulse Ox 93% on R/A; Weight 63.5 kg; Height aj 5 ft. 2 in. (157.48 cm); 15:48 BP 142 / 86; Pulse 82; Resp 15; Pulse Ox 96% on R/A; hb 15:09 Body Mass Index 25.61 (63.50 kg, 157.48 cm) ED Course: 15:04 Patient arrived in ED. mr 15:04 Lorraine Donnelly MD is Private Physician. mr 15:08 Triage completed. aj 15:09 Arm band placed on right wrist. Patient placed in an exam room. aj 15:12 iRc Shea NP is PHCP. pm1 15:12 Jaxson Rios MD is Attending Physician. pm1 15:30 Patient has correct armband on for positive identification. Bed in low position. Call hb light in reach. Side rails up X 1. 15:41 Chio Chavez, MARCI is Primary Nurse. hb 15:50 Lorraine Donnelly MD is Referral Physician. pm1 16:01 No provider procedures requiring assistance completed. Patient did not have IV access hb during this emergency room visit. Administered Medications: 15:41 Drug: Pepcid 20 mg Route: PO; hb 16:01 Follow up: Response: Medication administered at discharge. hb 15:41 Drug: Benadryl 25 mg Route: PO; hb 16:01 Follow up: Response: Medication administered at discharge. hb 15:41 Drug: predniSONE 60 mg Route: PO; hb 16:02 Follow up: Response: Medication administered at discharge. hb Outcome: 15:51 Discharge ordered by MD. pm1 16:01 Discharged to home ambulatory. hb 16:01 Condition: stable 16:01 Discharge instructions given to patient, Instructed on discharge instructions, follow up and referral plans. medication usage, wound care, Demonstrated understanding of instructions, follow-up care, medications, wound care, Prescriptions given X 2. 16:02 Patient left the ED. hb Signatures: Adelina Tierney RN RN Eleanor Sebastian ShabbirRic, TUNNEL ELASTIC OPERATOR CHAINSTITCH TUNNEL ELASTIC OPERATOR CHAINSTITCH pm1 Chio Chavez RN RN hb Corrections: (The following items were deleted from the chart) 15:43 15:30 Derm: Skin is healthy with good turgor, multiple insect bites to BLE notes hb hb
--- NOTE | 2017-10-26 15:52 | EDPHYS ---
Physician Documentation [facility] Name: Amber Acosta Age: 71 yrs Sex: Female : 1945 Arrival Date: 10/26/2017 Time: 15:04 Bed 13 Private MD: Lorraine Donnelly ED Physician Jaxson Rios HPI: 10/26 15:33 This 71 yrs old Female presents to ER via Ambulatory with complaints of Skin pm1 Sore(s). 15:33 The patient's rash thought to be caused by insect bites. The rash is located on the pm1 right lower leg. The rash can be described as raised. Onset: The symptoms/episode began/occurred this morning. Associated signs and symptoms: Pertinent positives: itching, Pain Pertinent negatives: fever, swelling of lips, swelling of throat, swelling of tongue, wheezing. Severity of symptoms: in the emergency department the symptoms are worse. Treatment given at home: None. Patient was seen about 3 weeks ago for a similar issue. Patient was kneeling in the garden and was bitten by fire ants to right lower leg. Patient given antibiotics and reports resolution with medications. Today, patient knelt in the garden again to remove weeds and was bitten by ants on her right lower leg. Historical: - Allergies: 15:09 Bees; aj 15:09 Codeine; aj 15:09 Levofloxacin; aj 15:09 METRONIDAZOLE; aj 15:09 PENICILLINS; aj 15:09 SHELLFISH; aj 15:09 sulfamethoxazole; aj 15:09 TRIMETHOPRIM; aj 15:09 Wasps; aj - Home Meds: 15:09 Ativan Oral [Active]; Metoprolol Tartrate Oral [Active]; Simvastatin Oral [Active]; aj - PMHx: 15:09 Anxiety; Depression; Diabetes - NIDDM; HTN, CVA; kidney cancer; Migraines; aj - PSHx: 15:09 Hysterectomy; aj - Immunization history:: Adult Immunizations up to date. - Social history:: Smoking status: Patient/guardian denies using tobacco. - Ebola Screening: : Patient negative for fever greater than or equal to 101.5 degrees Fahrenheit, and additional compatible Ebola Virus Disease symptoms Patient denies exposure to infectious person Patient denies travel to an Ebola-affected area in the 21 days before illness onset No symptoms or risks identified at this time. ROS: 15:33 Constitutional: Negative for fever, chills, and weight loss, Eyes: Negative for injury, pm1 pain, redness, and discharge, ENT: Negative for injury, pain, and discharge, Neck: Negative for injury, pain, and swelling, Cardiovascular: Negative for chest pain, palpitations, and edema, Respiratory: Negative for shortness of breath, cough, wheezing, and pleuritic chest pain, Abdomen/GI: Negative for abdominal pain, nausea, vomiting, diarrhea, and constipation, Back: Negative for injury and pain, : Negative for injury, bleeding, discharge, and swelling, MS/Extremity: Negative for injury and deformity. 15:33 Neuro: Negative for headache, weakness, numbness, tingling, and seizure. 15:33 Skin: Positive for rash, of the right hansen. Exam: 15:33 Constitutional: This is a well developed, well nourished patient who is awake, alert, pm1 and in no acute distress. Head/Face: Normocephalic, atraumatic. Eyes: Pupils equal round and reactive to light, extra-ocular motions intact. Lids and lashes normal. Conjunctiva and sclera are non-icteric and not injected. Cornea within normal limits. Periorbital areas with no swelling, redness, or edema. ENT: Nares patent. No nasal discharge, no septal abnormalities noted. Tympanic membranes are normal and external auditory canals are clear. Oropharynx with no redness, swelling, or masses, exudates, or evidence of obstruction, uvula midline. Mucous membranes moist. Neck: Trachea midline, no thyromegaly or masses palpated, and no cervical lymphadenopathy. Supple, full range of motion without nuchal rigidity, or vertebral point tenderness. No Meningismus. Chest/axilla: Normal chest wall appearance and motion. Nontender with no deformity. No lesions are appreciated. Cardiovascular: Regular rate and rhythm with a normal S1 and S2. No gallops, murmurs, or rubs. No pulse deficits. Respiratory: Lungs have equal breath sounds bilaterally, clear to auscultation and percussion. No rales, rhonchi or wheezes noted. No increased work of breathing, no retractions or nasal flaring. Abdomen/GI: Soft, non-tender, with normal bowel sounds. No distension or tympany. No guarding or rebound. No evidence of tenderness throughout. Back: No spinal tenderness. No costovertebral tenderness. Full range of motion. MS/ Extremity: Pulses equal, no cyanosis. Neurovascular intact. Full, normal range of motion. 15:33 Skin: Appearance: normal except for affected area, consistent with urticaria, with abrasions to urticaria, on the right hansen. 15:33 Neuro: Orientation: is normal, Motor: moves all fours. Vital Signs: 15:09 BP 140 / 89; Pulse 83; Resp 16; Temp 98.3; Pulse Ox 93% on R/A; Weight 63.5 kg; Height aj 5 ft. 2 in. (157.48 cm); 15:48 BP 142 / 86; Pulse 82; Resp 15; Pulse Ox 96% on R/A; hb 15:09 Body Mass Index 25.61 (63.50 kg, 157.48 cm) aj MDM: 15:20 Patient medically screened. pm1 15:44 Data reviewed: vital signs. pm1 15:50 Counseling: I had a detailed discussion with the patient and/or guardian regarding: the pm1 historical points, exam findings, and any diagnostic results supporting the discharge/admit diagnosis, the need for outpatient follow up, to return to the emergency department if symptoms worsen or persist or if there are any questions or concerns that arise at home. Administered Medications: 15:41 Drug: Pepcid 20 mg Route: PO; hb 16:01 Follow up: Response: Medication administered at discharge. hb 15:41 Drug: Benadryl 25 mg Route: PO; hb 16:01 Follow up: Response: Medication administered at discharge. hb 15:41 Drug: predniSONE 60 mg Route: PO; hb 16:02 Follow up: Response: Medication administered at discharge. hb Disposition: 17:23 Co-signature as Attending Physician, Jaxson Rios MD. rn Disposition: 10/26/17 15:51 Discharged to Home. Impression: Cellulitis of right lower limb. - Condition is Stable. - Discharge Instructions: Insect Bite, Cellulitis. - Prescriptions for Bactroban 2 % Topical Ointment - Apply to affected area 1 application by TOPICAL route every 12 hours; 30 gram. Doxycycline Hyclate 100 mg Oral Tablet - take 1 tablet by ORAL route every 12 hours; 20 tablet. - Medication Reconciliation Form, Thank You Letter, Antibiotic Education form. - Follow up: Emergency Department; When: As needed; Reason: Worsening of condition. Follow up: Lorraine Donnelly MD; When: 5 - 6 days; Reason: Recheck today's complaints, Continuance of care, Re-evaluation by your physician. - Problem is new. - Symptoms have improved. Signatures: Adelina Tierney RN RN aj Nieto, Roman, MD MD rn Marinas, Patrick, RESEARCH ASSISTANT PROFESSOR RESEARCH ASSISTANT PROFESSOR pm1 Chio Chavez RN RN Corrections: (The following items were deleted from the chart) 16:02 15:51 10/26/2017 15:51 Discharged to Home. Impression: Cellulitis of right lower limb. hb Condition is Stable. Discharge Instructions: Cellulitis. Prescriptions for Bactroban 2 % Topical Ointment - Apply to affected area 1 application by TOPICAL route every 12 hours; 30 gram, Doxycycline Hyclate 100 mg Oral Tablet - take 1 tablet by ORAL route every 12 hours; 20 tablet. and Forms are Medication Reconciliation Form, Thank You Letter, Antibiotic Education, Prescription Opioid Use. Follow up: Emergency Department; When: As needed; Reason: Worsening of condition. Follow up: Lorraine Donnelly; When: 5 - 6 days; Reason: Recheck today's complaints, Continuance of care, Re-evaluation by your physician. Problem is new. Symptoms have improved. pm1
[2017-10-26 16:07] VITALS: TEMP 98.3
[2017-10-26 16:08] VITALS: BP 142/86; O2SAT 96
== END 2017-10-26 16:02 | disposition home or self-care (01) ==
LOC: ER 15:01
DX: L03.115 Cellulitis of right lower limb (principal); E11.9 Type 2 diabetes mellitus without complications; Z86.73 Personal history of transient ischemic attack (TIA), and cerebral infarction without residual deficits; I10 Essential (primary) hypertension; Z88.2 Allergy status to sulfonamides; Z88.6 Allergy status to analgesic agent; Z88.1 Allergy status to other antibiotic agents; Z88.3 Allergy status to other anti-infective agents; Z91.030 Bee allergy status; Z88.0 Allergy status to penicillin; Z91.013 Allergy to seafood
CPT/HCPCS: 99283; J7512

== ENCOUNTER 2017-11-22 15:45 | Emergency (ER) | payer OTHER ==
--- NOTE | 2017-11-22 17:55 | EDPHYS ---
Physician Documentation [facility] Name: Amber Acosta Age: 71 yrs Sex: Female : 1945 Arrival Date: 11/22/2017 Time: 15:48 Bed 13 Private MD: Lorraine Donnelly ED Physician Larry Oneil HPI: 11/22 17:28 This 71 yrs old Female presents to ER via Wheelchair with complaints of Fall snw Injury. 17:28 Details of fall: The patient fell from an upright position, while standing. Onset: The snw symptoms/episode began/occurred suddenly, just prior to arrival, and became persistent. Associated injuries: The patient sustained injury to the low back, pain, right leg and right low back, painful injury. Severity of symptoms: At their worst the symptoms were moderate. The patient has not experienced similar symptoms in the past. It is unknown whether or not the patient has recently seen a physician. Historical: - Allergies: 15:55 Bees; sv 15:55 Codeine; sv 15:55 Levofloxacin; sv 15:55 METRONIDAZOLE; sv 15:55 PENICILLINS; sv 15:55 SHELLFISH; sv 15:55 sulfamethoxazole; sv 15:55 TRIMETHOPRIM; sv 15:55 Wasps; sv - Home Meds: 15:55 Ativan Oral [Active]; Metoprolol Tartrate Oral [Active]; Simvastatin Oral [Active]; sv - PMHx: 15:55 Anxiety; Depression; Diabetes - NIDDM; HTN, CVA; kidney cancer; Migraines; sv - PSHx: 15:55 Hysterectomy; sv - Immunization history:: Adult Immunizations up to date. - Social history:: Smoking status: Patient/guardian denies using tobacco. - Ebola Screening: : No symptoms or risks identified at this time. ROS: 17:28 Constitutional: Negative for fever, chills, and weight loss, Eyes: Negative for injury, snw pain, redness, and discharge, ENT: Negative for injury, pain, and discharge, Neck: Negative for injury, pain, and swelling, Cardiovascular: Negative for chest pain, palpitations, and edema, Respiratory: Negative for shortness of breath, cough, wheezing, and pleuritic chest pain, Abdomen/GI: Negative for abdominal pain, nausea, vomiting, diarrhea, and constipation, Back: Negative for injury and pain, : Negative for injury, bleeding, discharge, and swelling, Skin: Negative for injury, rash, and discoloration, Neuro: Negative for headache, weakness, numbness, tingling, and seizure, Psych: Negative for depression, anxiety, suicide ideation, homicidal ideation, and hallucinations. 17:28 MS/extremity: Positive for injury or acute deformity, tenderness, of the right leg and right low back. Exam: 17:25 Constitutional: This is a well developed, well nourished patient who is awake, alert, snw and in no acute distress. Head/Face: Normocephalic, atraumatic. Eyes: Pupils equal round and reactive to light, extra-ocular motions intact. Lids and lashes normal. Conjunctiva and sclera are non-icteric and not injected. Cornea within normal limits. Periorbital areas with no swelling, redness, or edema. ENT: Nares patent. No nasal discharge, no septal abnormalities noted. Tympanic membranes are normal and external auditory canals are clear. Oropharynx with no redness, swelling, or masses, exudates, or evidence of obstruction, uvula midline. Mucous membranes moist. Neck: Trachea midline, no thyromegaly or masses palpated, and no cervical lymphadenopathy. Supple, full range of motion without nuchal rigidity, or vertebral point tenderness. No Meningismus. Chest/axilla: Normal chest wall appearance and motion. Nontender with no deformity. No lesions are appreciated. Cardiovascular: Regular rate and rhythm with a normal S1 and S2. No gallops, murmurs, or rubs. Normal PMI, no JVD. No pulse deficits. Respiratory: Lungs have equal breath sounds bilaterally, clear to auscultation and percussion. No rales, rhonchi or wheezes noted. No increased work of breathing, no retractions or nasal flaring. Abdomen/GI: Soft, non-tender, with normal bowel sounds. No distension or tympany. No guarding or rebound. No evidence of tenderness throughout. Back: No spinal tenderness. No costovertebral tenderness. Full range of motion. Neuro: Awake and alert, GCS 15, oriented to person, place, time, and situation. Cranial nerves II-XII grossly intact. Motor strength 5/5 in all extremities. Sensory grossly intact. Cerebellar exam normal. Normal gait. Psych: Awake, alert, with orientation to person, place and time. Behavior, mood, and affect are within normal limits. 17:25 Skin: Appearance: normal except for affected area, minor abrasions to bilateral lower extremities, no significant contusion noted to right hip and leg, mild ecchymotic area to right lower quad. , injury, pain to right lower extremity/lower back. Vital Signs: 15:56 BP 179 / 100; Pulse 101; Resp 22; Pulse Ox 100% ; Weight 63.5 kg; Height 5 ft. 2 in. sv (157.48 cm); Pain 10/10; 16:56 BP 151 / 77; Pulse 69; Resp 20; Pulse Ox 100% on R/A; Pain 8/10; rb1 17:56 BP 148 / 95; Pulse 65; Resp 15; Pulse Ox 97% on R/A; rb1 15:56 Body Mass Index 25.61 (63.50 kg, 157.48 cm) sv MDM: 17:09 Patient medically screened. snw 17:58 Data reviewed: vital signs, nurses notes. Data interpreted: Pulse oximetry: on room air snw is 100 %. Interpretation: normal. Counseling: I had a detailed discussion with the patient and/or guardian regarding: the historical points, exam findings, and any diagnostic results supporting the discharge/admit diagnosis, the presence of at least one elevated blood pressure reading (>120/80) during this emergency department visit, radiology results, the need for outpatient follow up, to return to the emergency department if symptoms worsen or persist or if there are any questions or concerns that arise at home. Special discussion: Based on the history and exam findings, there is no indication for further emergent testing or inpatient evaluation. I discussed with the patient/guardian the need to see the orthopedic surgeon for further evaluation of the symptoms. I discussed with the patient/guardian the need to see the primary care provider for further evaluation of the symptoms. 11/22 16:27 Order name: Lumbar Spine (3 Views) XRAY; Complete Time: 18:13 snw 11/22 16:27 Order name: Pelvis XRAY; Complete Time: 18:13 snw Administered Medications: 18:12 Not Given (canceled): fentaNYL (PF) 50 mcg IM once rb1 Disposition: 11/23 10:37 Co-signature as Attending Physician, Larry Oneil MD I agree with the assessment and kdr plan of care. Disposition: 11/22/17 17:55 Discharged to Home. Impression: Fall on same level from slipping, tripping and stumbling, Low back pain, Contusion of right hip. - Condition is Stable. - Discharge Instructions: Back Pain, Adult, Fall Prevention in the Home, Hypertension, Musculoskeletal Pain, Cryotherapy, Heat Therapy. - Prescriptions for Diclofenac Sodium 75 mg Oral Tablet Sustained Release - take 1 tablet by ORAL route 2 times per day; 30 tablet. - Medication Reconciliation Form, Thank You Letter, Antibiotic Education, Prescription Opioid Use form. - Follow up: Lorraine Donnelly MD; When: 2 - 3 days; Reason: Recheck today's complaints, Continuance of care, Re-evaluation by your physician. Follow up: Emergency Department; When: As needed; Reason: Worsening of condition. Signatures: Dispatcher [employer] Isabella Lane, RN RN Larry Bryson MD MD kdr Therrien, Shelly, SCHOOL SOCIAL WORKER-C SCHOOL SOCIAL WORKER-[employer] Liliane Appiah, RN RN rb1 Corrections: (The following items were deleted from the chart) 11/22 18:16 17:55 11/22/2017 17:55 Discharged to Home. Impression: Fall on same level from rb1 slipping, tripping and stumbling; Low back pain; Contusion of right hip. Condition is Stable. Forms are Medication Reconciliation Form, Thank You Letter, Antibiotic Education, Prescription Opioid Use. Follow up: Lorraine Donnelly; When: 2 - 3 days; Reason: Recheck today's complaints, Continuance of care, Re-evaluation by your physician. Follow up: Emergency Department; When: As needed; Reason: Worsening of condition. snw
--- NOTE | 2017-11-22 17:55 | ER ---
Nurse's Notes [facility] Name: Amber Acosta Age: 71 yrs Sex: Female : 1945 Arrival Date: 11/22/2017 Time: 15:48 Bed 13 Private MD: Lorraine Donnelly Diagnosis: Fall on same level from slipping, tripping and stumbling;Low back pain;Contusion of right hip Presentation: 11/22 15:54 Presenting complaint: Patient states: she fell to the ground after her 's hospital railing fell down. Pt c/o right leg, hip and back pain. Denies LOC. Transition of care: patient was not received from another setting of care. Onset of symptoms was November 22, 2017. Care prior to arrival: None. 15:54 Method Of Arrival: Wheelchair sv 15:54 Acuity: IVETTE 3 sv 16:45 Risk Assessment: Do you want to hurt yourself or someone else? Patient reports no rb1 desire to harm self or others. Initial Sepsis Screen: Does the patient meet any 2 criteria? No. Patient's initial sepsis screen is negative. Does the patient have a suspected source of infection? No. Patient's initial sepsis screen is negative. Triage Assessment: 15:54 General: Appears uncomfortable, Behavior is cooperative, crying. Pain: Complains of sv pain in right leg, right hip and right back Pain currently is 10 out of 10 on a pain scale. EENT: No signs and/or symptoms were reported regarding the EENT system. Neuro: Level of Consciousness is awake, alert, obeys commands, Oriented to person, place, time, situation, Moves all extremities. Respiratory: Respiratory effort is even, unlabored, Respiratory pattern is regular, symmetrical. Derm: Skin is normal. Historical: - Allergies: 15:55 Bees; sv 15:55 Codeine; sv 15:55 Levofloxacin; sv 15:55 METRONIDAZOLE; sv 15:55 PENICILLINS; sv 15:55 SHELLFISH; sv 15:55 sulfamethoxazole; sv 15:55 TRIMETHOPRIM; sv 15:55 Wasps; sv - Home Meds: 15:55 Ativan Oral [Active]; Metoprolol Tartrate Oral [Active]; Simvastatin Oral [Active]; sv - PMHx: 15:55 Anxiety; Depression; Diabetes - NIDDM; HTN, CVA; kidney cancer; Migraines; sv - PSHx: 15:55 Hysterectomy; sv - Immunization history:: Adult Immunizations up to date. - Social history:: Smoking status: Patient/guardian denies using tobacco. - Ebola Screening: : No symptoms or risks identified at this time. Screenin:45 Abuse screen: Denies threats or abuse. Nutritional screening: No deficits noted. rb1 Tuberculosis screening: No symptoms or risk factors identified. Fall Risk Fall in past 12 months (25 points). No secondary diagnosis (0 pts). No IV (0 pts). Ambulatory Aid- None/Bed Rest/Nurse Assist (0 pts). Gait- Normal/Bed Rest/Wheelchair (0 pts) Mental Status- Oriented to own ability (0 pts). Total Gonzalez Fall Scale indicates Low Risk Score (25-44 pts). Fall prevention measures have been instituted. Side Rails Up X 2 Placed close to Nursing Station 1:1 attendant Assigned to Pt. Frequent Obs/Assesments occuring As available Patient and Family Educated on Fall Prevention Program and strategies. Assessment: 16:45 General: Appears uncomfortable, Behavior is anxious. General: Pt. stated, "My rb1 is bed bound, I was going to the store yesterday and bent over the bed rail and it gave way causing me to fall.". Pain: Complains of pain in right mid back and right low back Pain radiates to right leg Pain currently is 8 out of 10 on a pain scale. Pain began 1 day ago. Neuro: Level of Consciousness is awake, alert, obeys commands, Oriented to person, place, time, situation. Cardiovascular: Capillary refill < 3 seconds is brisk in bilateral fingers. Respiratory: Airway is patent Respiratory effort is even, unlabored, Respiratory pattern is regular, symmetrical. GI: No signs and/or symptoms were reported involving the gastrointestinal system. : No signs and/or symptoms were reported regarding the genitourinary system. Derm: Skin is pink, warm \\T\\ dry. Musculoskeletal: Range of motion: intact in all extremities. 17:44 Reassessment: Patient appears in no apparent distress at this time. No changes from rb1 previously documented assessment. Vital Signs: 15:56 BP 179 / 100; Pulse 101; Resp 22; Pulse Ox 100% ; Weight 63.5 kg; Height 5 ft. 2 in. sv (157.48 cm); Pain 10/10; 16:56 BP 151 / 77; Pulse 69; Resp 20; Pulse Ox 100% on R/A; Pain 8/10; rb1 17:56 BP 148 / 95; Pulse 65; Resp 15; Pulse Ox 97% on R/A; rb1 15:56 Body Mass Index 25.61 (63.50 kg, 157.48 cm) sv ED Course: 15:48 Patient arrived in ED. sb2 15:48 Lorraine Donnelly MD is Private Physician. sb2 15:55 Triage completed. sv 15:56 Arm band placed on left wrist. sv 16:10 Warm blanket given. Pillow given. jp3 16:44 Liliane Appiah, RN is Primary Nurse. rb1 17:08 Placed in gown. Bed in low position. Call light in reach. Side rails up X 1. Side rails jp3 up X2. 17:09 Gayatri Wong FNP-C is [facility]. snw 17:09 Larry Oneil MD is Attending Physician. snw 17:52 Lumbar Spine (3 Views) XRAY In Process Unspecified. EDMS 17:52 Pelvis XRAY In Process Unspecified. EDMS 17:54 X-ray completed. Patient tolerated procedure well. Patient moved back from radiology. mh1 17:54 Lorraine Donnelly MD is Referral Physician. snw 18:15 No provider procedures requiring assistance completed. Patient did not have IV access rb1 during this emergency room visit. Administered Medications: 18:12 Not Given (canceled): fentaNYL (PF) 50 mcg IM once rb1 Outcome: 17:55 Discharge ordered by . snw 18:15 Discharged to home via wheelchair. rb1 18:15 Condition: stable 18:15 Discharge instructions given to patient, Instructed on discharge instructions, follow up and referral plans. medication usage, Demonstrated understanding of instructions, follow-up care, medications, Prescriptions given X 1. 18:16 Patient left the ED. rb1 Signatures: Dispatcher [employer] Isabella Lane RN RN Gayatri Wong FNP-C [employer] STAYER-Cs[employer] Livia Chapin mh1 Liliane Appiah, RN RN rb1 Kaye Samuel sb2 Philippe Qureshi jp3
--- NOTE | 2017-11-22 18:09 | RAD REPORT ---
EXAM DESCRIPTION: RAD - Lumbar Spine 3 Views - 11/22/2017 5:52 pm CLINICAL HISTORY: Pain;Smash injury Radiculopathy COMPARISON: Lumbar Spine 3 Views dated 05/30/2017; Lumbar Spine 3 Views dated 01/24/2017; Lumbar Spine 3 Views dated 01/22/2017; Lumbar Spine 3 Views dated 12/30/2016 FINDINGS: Mild diffuse osteopenia. Mild degenerative change in the mid and lower lumbar spine is see n with mild retrolisthesis of L2 on L3, chronic. No acute compression fracture seen. Mild degenerativ e levoscoliosis. Mild aortic atherosclerosis. IMPRESSION: No acute abnormality is detected.
--- NOTE | 2017-11-22 18:11 | RAD REPORT ---
EXAM DESCRIPTION: RAD - Pelvis - 11/22/2017 5:52 pm CLINICAL HISTORY: TRAUMA Pain COMPARISON: Pelvis dated 01/22/2017 FINDINGS: No fracture, dislocation or radiographic evidence of AVN. Mild bilateral hip osteoarthriti s. IMPRESSION: No acute finding evident.
[2017-11-22 18:24] VITALS: BP 148/95; O2SAT 97
== END 2017-11-22 18:16 | disposition home or self-care (01) ==
LOC: ER 15:45
DX: S70.01XA Contusion of right hip, initial encounter (principal); M54.5 Low back pain; E11.9 Type 2 diabetes mellitus without complications; I10 Essential (primary) hypertension; W01.0XXA Fall on same level from slipping, tripping and stumbling without subsequent striking against object, initial encounter; Y93.9 Activity, unspecified; Y92.9 Unspecified place or not applicable; Y99.9 Unspecified external cause status; Z88.2 Allergy status to sulfonamides; Z88.8 Allergy status to other drugs, medicaments and biological substances; Z88.1 Allergy status to other antibiotic agents; Z91.030 Bee allergy status; Z91.038 Other insect allergy status; Z88.0 Allergy status to penicillin; Z91.013 Allergy to seafood
CPT/HCPCS: 72100; 72170; 99283

== ENCOUNTER 2018-01-22 11:50 | Emergency (ER) | payer OTHER ==
--- NOTE | 2018-01-22 14:34 | EDPHYS ---
Physician Documentation [facility] Name: Amber Acosta Age: 72 yrs Sex: Female : 1945 Arrival Date: 01/22/2018 Time: 11:54 Bed 14 Private MD: Lorraine Donnelly ED Physician Marcos Pink HPI: 01/22 14:30 This 72 yrs old Female presents to ER via Ambulatory with complaints of Back jr8 Pain. 14:30 The patient presents with pain that is acute. The symptoms are located in the left jr8 scapular area, right scapular area, left subscapular area, right subscapular area, left mid back and right mid back. Onset: The symptoms/episode began/occurred acutely, today. The pain does not radiate. Associated signs and symptoms: The patient has no apparent associated signs or symptoms. The problem was sustained when lifting from twisting. Modifying factors: The patient symptoms are alleviated by nothing, the patient symptoms are aggravated by any movement. Severity of symptoms: At their worst the symptoms were mild, in the emergency department the symptoms are unchanged. The patient has not experienced similar symptoms in the past. The patient has not recently seen a physician. Patient stated that her has ALS. Did not have caregiver at home to help with movement. Had to push and pull a lot yesterday. Now having mid and upper back pain. Denies trauma or fevers . Historical: - Allergies: 12:19 Bees; aj1 12:19 Codeine; aj1 12:19 Levofloxacin; aj1 12:19 METRONIDAZOLE; aj1 12:19 PENICILLINS; aj1 12:19 SHELLFISH; aj1 12:19 sulfamethoxazole; aj1 12:19 TRIMETHOPRIM; aj1 12:19 Wasps; aj1 - Home Meds: 12:19 Ativan Oral [Active]; Metoprolol Tartrate Oral [Active]; Simvastatin Oral [Active]; aj1 - PMHx: 12:19 Anxiety; Depression; Diabetes - NIDDM; HTN, CVA; kidney cancer; Migraines; aj1 - Immunization history:: Flu vaccine is not up to date. - Social history:: Smoking status: Patient/guardian denies using tobacco. - Ebola Screening: : Patient denies travel to an Ebola-affected area in the 21 days before illness onset. ROS: 14:30 Eyes: Negative for injury, pain, redness, and discharge, ENT: Negative for injury, jr8 pain, and discharge, Neck: Negative for injury, pain, and swelling, Cardiovascular: Negative for chest pain, palpitations, and edema, Respiratory: Negative for shortness of breath, cough, wheezing, and pleuritic chest pain, Abdomen/GI: Negative for abdominal pain, nausea, vomiting, diarrhea, and constipation, MS/Extremity: Negative for injury and deformity, Skin: Negative for injury, rash, and discoloration, Neuro: Negative for headache, weakness, numbness, tingling, and seizure. 14:30 Back: Positive for pain at rest, pain with movement, of the left scapular area, right scapular area, left subscapular area, right subscapular area, left mid back and right mid back. Exam: 14:30 Eyes: Pupils equal round and reactive to light, extra-ocular motions intact. Lids and jr8 lashes normal. Conjunctiva and sclera are non-icteric and not injected. Cornea within normal limits. Periorbital areas with no swelling, redness, or edema. ENT: Nares patent. No nasal discharge, no septal abnormalities noted. Tympanic membranes are normal and external auditory canals are clear. Oropharynx with no redness, swelling, or masses, exudates, or evidence of obstruction, uvula midline. Mucous membranes moist. Neck: Trachea midline, no thyromegaly or masses palpated, and no cervical lymphadenopathy. Supple, full range of motion without nuchal rigidity, or vertebral point tenderness. No Meningismus. Cardiovascular: Regular rate and rhythm with a normal S1 and S2. No gallops, murmurs, or rubs. Normal PMI, no JVD. No pulse deficits. Respiratory: Lungs have equal breath sounds bilaterally, clear to auscultation and percussion. No rales, rhonchi or wheezes noted. No increased work of breathing, no retractions or nasal flaring. Abdomen/GI: Soft, non-tender, with normal bowel sounds. No distension or tympany. No guarding or rebound. No evidence of tenderness throughout. Skin: Warm, dry with normal turgor. Normal color with no rashes, no lesions, and no evidence of cellulitis. MS/ Extremity: Pulses equal, no cyanosis. Neurovascular intact. Full, normal range of motion. Neuro: Awake and alert, GCS 15, oriented to person, place, time, and situation. Cranial nerves II-XII grossly intact. Motor strength 5/5 in all extremities. Sensory grossly intact. Cerebellar exam normal. Normal gait. 14:30 Back: pain, that is moderate, of the left scapular area, right scapular area, left subscapular area, right subscapular area, left mid back and right mid back, ROM is painful, with all movement, normal spinal alignment noted, vertebral tenderness, is not appreciated, muscle spasm, is not present. Vital Signs: 12:19 BP 121 / 76; Pulse 81; Resp 18; Temp 97.6; Pulse Ox 95% on R/A; Weight 61.23 kg (R); aj1 Height 5 ft. 2 in. (157.48 cm) (R); 15:18 BP 135 / 75; Pulse 74; Resp 18; Temp 98; Pulse Ox 97% on R/A; Pain 3/10; ch 12:19 Body Mass Index 24.69 (61.23 kg, 157.48 cm) aj1 MDM: 13:16 Patient medically screened. jr8 14:30 Data reviewed: vital signs, nurses notes, and as a result, I will discharge patient. jr8 Data interpreted: Pulse oximetry: on room air is 95 %. Interpretation: normal. Counseling: I had a detailed discussion with the patient and/or guardian regarding: the historical points, exam findings, and any diagnostic results supporting the discharge/admit diagnosis, the need for outpatient follow up, a family practitioner, to return to the emergency department if symptoms worsen or persist or if there are any questions or concerns that arise at home. 01/22 14:15 Order name: Urine Dipstick--Ancillary (enter results); Complete Time: 17:30 bd 01/22 13:58 Order name: Urine Dipstick-Ancillary (obtain specimen); Complete Time: 14:21 jr8 Administered Medications: 14:54 Drug: TORadol 60 mg Route: IM; Site: right gluteus; ch 14:55 Drug: Rose (7.5 mg-325 mg) 1 tabs Route: PO; Disposition: 01/23 07:29 Co-signature as Attending Physician, Marcos Pink MD I agree with the assessment and bi plan of care. Disposition: 01/22/18 14:33 Discharged to Home. Impression: Muscle spasm of back. - Condition is Stable. - Discharge Instructions: Back Exercises, [id number], Heat Therapy. - Prescriptions for Robaxin 500 mg Oral Tablet - take 2 tablet by ORAL route every 6 hours As needed; 40 tablet. Ultracet 37.5- 325 mg Oral Tablet - take 1 tablet by ORAL route every 6 hours - for up to 5 days; do not exceed 8 tablets per day.; 30 tablet. - Medication Reconciliation Form, Thank You Letter, Antibiotic Education, Prescription Opioid Use form. - Follow up: Lorraine Donnelly MD; When: 5 - 6 days; Reason: Recheck today's complaints, Continuance of care, Re-evaluation by your physician. - Problem is new. - Symptoms have improved. Signatures: Dispatcher [employer] EDMS Rody Sanchez RN RN Sierra Krishna RN RN aj1 Marcos Pink MD MD cha Roszak, Josh, PA PA jr8 Corrections: (The following items were deleted from the chart) 01/22 15:21 14:33 01/22/2018 14:33 Discharged to Home. Impression: Muscle spasm of back. Condition ch is Stable. Forms are Medication Reconciliation Form, Thank You Letter, Antibiotic Education, Prescription Opioid Use. Follow up: Lorraine Donnelly; When: 5 - 6 days; Reason: Recheck today's complaints, Continuance of care, Re-evaluation by your physician. Problem is new. Symptoms have improved. jr8
--- NOTE | 2018-01-22 14:34 | ER ---
Nurse's Notes [facility] Name: Amber Acosta Age: 72 yrs Sex: Female : 1945 Arrival Date: 01/22/2018 Time: 11:54 Bed 14 Private MD: Lorraine Donnelly Diagnosis: Muscle spasm of back Presentation: 01/22 12:13 Presenting complaint: Patient states: Lower back pain that radiated to her shoulders aj1 for the past 2 days. Patient states she thinks she was doing yard work the day before her back started hurting. Transition of care: patient was not received from another setting of care. Onset of symptoms was January 20, 2018. Risk Assessment: Do you want to hurt yourself or someone else? Patient reports no desire to harm self or others. Initial Sepsis Screen: Does the patient meet any 2 criteria? No. Patient's initial sepsis screen is negative. Does the patient have a suspected source of infection? No. Patient's initial sepsis screen is negative. Care prior to arrival: None. 12:13 Method Of Arrival: Ambulatory aj1 12:13 Acuity: IVETTE 4 aj1 Triage Assessment: 12:19 General: Appears in no apparent distress. comfortable, Behavior is calm, cooperative, aj1 appropriate for age. Pain: Complains of pain in low back area Pain currently is 8 out of 10 on a pain scale. Neuro: Level of Consciousness is awake, alert, obeys commands. Cardiovascular: Patient's skin is warm and dry. Respiratory: Airway is patent Respiratory effort is even, unlabored, Respiratory pattern is regular, symmetrical. Musculoskeletal: Range of motion: intact in all extremities. Historical: - Allergies: 12:19 Bees; aj1 12:19 Codeine; aj1 12:19 Levofloxacin; aj1 12:19 METRONIDAZOLE; aj1 12:19 PENICILLINS; aj1 12:19 SHELLFISH; aj1 12:19 sulfamethoxazole; aj1 12:19 TRIMETHOPRIM; aj1 12:19 Wasps; aj1 - Home Meds: 12:19 Ativan Oral [Active]; Metoprolol Tartrate Oral [Active]; Simvastatin Oral [Active]; aj1 - PMHx: 12:19 Anxiety; Depression; Diabetes - NIDDM; HTN, CVA; kidney cancer; Migraines; aj1 - Immunization history:: Flu vaccine is not up to date. - Social history:: Smoking status: Patient/guardian denies using tobacco. - Ebola Screening: : Patient denies travel to an Ebola-affected area in the 21 days before illness onset. Screenin:18 Abuse screen: Denies threats or abuse. Denies injuries from another. Nutritional ch screening: No deficits noted. Tuberculosis screening: No symptoms or risk factors identified. Fall Risk None identified. Assessment: 15:18 General: Appears in no apparent distress. comfortable, Behavior is calm, cooperative, ch appropriate for age. Neuro: No deficits noted. 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 Full function Gait is steady, Speech is normal, Facial symmetry appears normal, Facial symmetry: tongue is midline, Pupils are PERRLA. Respiratory: Airway is patent Respiratory effort is even, unlabored, Breath sounds are clear bilaterally. GI: No signs and/or symptoms were reported involving the gastrointestinal system. Derm: Skin is pink, warm \T\ dry. Vital Signs: 12:19 BP 121 / 76; Pulse 81; Resp 18; Temp 97.6; Pulse Ox 95% on R/A; Weight 61.23 kg (R); aj1 Height 5 ft. 2 in. (157.48 cm) (R); 15:18 BP 135 / 75; Pulse 74; Resp 18; Temp 98; Pulse Ox 97% on R/A; Pain 3/10; ch 12:19 Body Mass Index 24.69 (61.23 kg, 157.48 cm) aj1 ED Course: 11:54 Patient arrived in ED. rg4 11:54 Lorraine Donnelly MD is Private Physician. rg4 12:18 Triage completed. aj1 12:19 Arm band placed on Patient placed in waiting room, Patient notified of wait time. aj1 13:05 Rody Sanchez, MARCI is Primary Nurse. ch 13:16 Everardo Scott PA is PHCP. jr8 13:16 Marcos Pink MD is Attending Physician. jr8 14:33 Lorraine Donnelly MD is Referral Physician. jr8 15:18 No apparent distress. Resting quietly. ch 15:18 Patient has correct armband on for positive identification. Placed in gown. Bed in low ch position. Call light in reach. Side rails up X 1. monitoring analyst on. Pulse ox on. NIBP on. 15:18 No provider procedures requiring assistance completed. Patient did not have IV access during this emergency room visit. Administered Medications: 14:54 Drug: TORadol 60 mg Route: IM; Site: right gluteus; 14:55 Drug: Bronte (7.5 mg-325 mg) 1 tabs Route: PO; Outcome: 14:33 Discharge ordered by MD. ocampo 15:18 Discharged to home ambulatory, with family. 15:18 Condition: stable 15:18 Discharge instructions given to patient, family, Instructed on discharge instructions, follow up and referral plans. medication usage, Demonstrated understanding of instructions, follow-up care, medications. 15:21 Patient left the ED. Signatures: Rody Sanchez, RN RN Sierra Krishna RN RN aj1 Everardo Scott PA PA jr8 Garcia, Rubi rg4
[2018-01-22] MEDS ORDERED: KETOROLAC 30 MG/ML INJ ONE (14:47)
[2018-01-22] MEDS ORDERED: HYDROCODONE/APAP 7.5/325 MG TAB ONE ×2 (14:47→14:52)
[2018-01-22 15:11] LABS: Urine Blood NEGATIVE (NEG); Urine Glucose NEGATIVE (NEG); Urine Protein 1+ (NEG); Urine Specific Gravity 1.025 (1.005-1.030); Urine pH 5.5 (5.0-7.0)
[2018-01-22 15:33] VITALS: BP 135/75; TEMP 98; O2SAT 97
== END 2018-01-22 15:21 | disposition home or self-care (01) ==
LOC: ER 11:50
DX: M62.830 Muscle spasm of back (principal); I10 Essential (primary) hypertension; E11.9 Type 2 diabetes mellitus without complications; F32.9 Major depressive disorder, single episode, unspecified; Z85.528 Personal history of other malignant neoplasm of kidney; Z88.0 Allergy status to penicillin; Z88.2 Allergy status to sulfonamides; Z88.3 Allergy status to other anti-infective agents; Z88.5 Allergy status to narcotic agent; Z91.030 Bee allergy status; Z91.038 Other insect allergy status
CPT/HCPCS: 81003; 96372; 99284

== ENCOUNTER 2018-02-06 20:00 | Emergency (ER) | payer OTHER ==
--- NOTE | 2018-02-06 21:10 | ER ---
Nurse's Notes [facility] Name: Amber Acosta Age: 72 yrs Sex: Female : 1945 Arrival Date: 02/06/2018 Time: 20:01 Bed 20 Private MD: Lorraine Donnelly Diagnosis: Low back pain;Strain of muscle, fascia and tendon of abdomen Presentation: 02/06 20:14 Presenting complaint: Patient states: that she was pulling weeds and is now having fc severe mid back pain. Worse with movement. Transition of care: patient was not received from another setting of care. Onset of symptoms was February 06, 2018. Risk Assessment: Do you want to hurt yourself or someone else? Patient reports no desire to harm self or others. Initial Sepsis Screen: Does the patient meet any 2 criteria? No. Patient's initial sepsis screen is negative. Does the patient have a suspected source of infection? No. Patient's initial sepsis screen is negative. Care prior to arrival: Medication(s) given: Hydrocodone at 1815. 20:14 Method Of Arrival: Ambulatory 20:14 Acuity: IVETTE 4 fc Historical: - Allergies: 20:17 Bees; fc 20:17 Codeine; fc 20:17 Levofloxacin; fc 20:17 METRONIDAZOLE; fc 20:17 PENICILLINS; fc 20:17 SHELLFISH; fc 20:17 sulfamethoxazole; fc 20:17 TRIMETHOPRIM; fc 20:17 Wasps; fc - Home Meds: 20:17 Ativan Oral 1 tab nightly [Active]; Metoprolol Tartrate Oral 1 tab nightly [Active]; fc Simvastatin Oral nightly [Active]; - PMHx: 20:17 Anxiety; Diabetes - NIDDM; kidney cancer; HTN, CVA; Migraines; Depression; High fc Cholesterol; - PSHx: 20:17 Hysterectomy; fc - Immunization history:: Last tetanus immunization: up to date Flu vaccine is not up to date. - Social history:: Smoking status: Patient/guardian denies using tobacco. - Ebola Screening: : Patient negative for fever greater than or equal to 101.5 degrees Fahrenheit, and additional compatible Ebola Virus Disease symptoms Patient denies exposure to infectious person Patient denies travel to an Ebola-affected area in the 21 days before illness onset. - Family history:: not pertinent. Screenin:19 Abuse screen: Denies threats or abuse. Nutritional screening: No deficits noted. fc Tuberculosis screening: No symptoms or risk factors identified. 21:00 Fall Risk None identified. ea Assessment: 20:50 General: Appears uncomfortable, Behavior is calm, cooperative, appropriate for age. ea Pain: Complains of pain in mid back area Pain currently is 7 out of 10 on a pain scale. Quality of pain is described as aching. Neuro: Level of Consciousness is awake, alert, obeys commands, Oriented to person, place, time, situation. Cardiovascular: Patient's skin is warm and dry. Respiratory: Airway is patent Respiratory effort is even, unlabored, Respiratory pattern is regular, symmetrical. GI: No signs and/or symptoms were reported involving the gastrointestinal system. : No signs and/or symptoms were reported regarding the genitourinary system. Derm: Skin is pink, warm \T\ dry. Musculoskeletal: Reports pain in mid back area. 21:37 Reassessment: Patient and/or family updated on plan of care and expected duration. Pain ea level reassessed. Patient is alert, oriented x 3, equal unlabored respirations, skin warm/dry/pink. Discharge instructions give to patient, verbalized the understanding of instruction. Vital Signs: 20:17 BP 161 / 84; Pulse 66; Resp 18; Temp 98.0(TE); Pulse Ox 99% on R/A; Weight 63.5 kg (R); fc Height 5 ft. 2 in. (157.48 cm) (R); Pain 8/10; 21:30 BP 157 / 70; Pulse 70; Resp 18; Pulse Ox 98% ; ea 20:17 Body Mass Index 25.61 (63.50 kg, 157.48 cm) ED Course: 20:01 Patient arrived in ED. ds1 20:03 Lorraine Donnelly MD is Private Physician. ds1 20:15 Triage completed. fc 20:17 Arm band placed on Patient placed in an exam room, on a stretcher. 20:19 Patient has correct armband on for positive identification. Bed in low position. Call light in reach. 20:23 Kiley Richardson RN is Primary Nurse. ea 20:45 Marcos Pink MD is Attending Physician. bi 21:08 Lorraine Donnelly MD is Referral Physician. bi 21:45 No provider procedures requiring assistance completed. Patient did not have IV access ea during this emergency room visit. Administered Medications: 21:26 Drug: traMADol 50 mg Route: PO; ea 21:50 Follow up: Response: Medication administered at discharge. ea Outcome: 21:09 Discharge ordered by . bi 21:38 Discharged to home ambulatory, with family. renato 21:38 Condition: good 21:38 Discharge instructions given to patient, Instructed on discharge instructions, follow up and referral plans. medication usage, Demonstrated understanding of instructions, follow-up care, medications, Prescriptions given X 1. 21:51 Patient left the ED. ea Signatures: Marcos Pink MD MD cha Chretien, Felicia, RN RN Melanie Calvo dsKiley Mills RN RN renato
--- NOTE | 2018-02-06 21:10 | EDPHYS ---
Physician Documentation [facility] Name: Amber Acosta Age: 72 yrs Sex: Female : 1945 Arrival Date: 02/06/2018 Time: 20:01 Bed 20 Private MD: Lorraine Donnelly ED Physician Marcos Pink HPI: 02/06 21:03 This 72 yrs old Female presents to ER via Ambulatory with complaints of Back bi Pain. 21:03 The patient presents with pain that is acute. The symptoms are located in the low back, bi left subscapular area, left low back and left mid back. Onset: The symptoms/episode began/occurred just prior to arrival, 2 day(s) ago. The pain does not radiate. Associated signs and symptoms: The patient has no apparent associated signs or symptoms. The problem was sustained when bending over, when lifting from twisting. Modifying factors: The patient symptoms are alleviated by remaining still, the patient symptoms are aggravated by lifting, movement. Severity of symptoms: At their worst the symptoms were mild. The patient has experienced similar episodes in the past, a few times. Historical: - Allergies: 20:17 Bees; fc 20:17 Codeine; fc 20:17 Levofloxacin; fc 20:17 METRONIDAZOLE; fc 20:17 PENICILLINS; fc 20:17 SHELLFISH; fc 20:17 sulfamethoxazole; fc 20:17 TRIMETHOPRIM; fc 20:17 Wasps; fc - Home Meds: 20:17 Ativan Oral 1 tab nightly [Active]; Metoprolol Tartrate Oral 1 tab nightly [Active]; fc Simvastatin Oral nightly [Active]; - PMHx: 20:17 Anxiety; Diabetes - NIDDM; kidney cancer; HTN, CVA; Migraines; Depression; High fc Cholesterol; - PSHx: 20:17 Hysterectomy; fc - Immunization history:: Last tetanus immunization: up to date Flu vaccine is not up to date. - Social history:: Smoking status: Patient/guardian denies using tobacco. - Ebola Screening: : Patient negative for fever greater than or equal to 101.5 degrees Fahrenheit, and additional compatible Ebola Virus Disease symptoms Patient denies exposure to infectious person Patient denies travel to an Ebola-affected area in the 21 days before illness onset. - Family history:: not pertinent. ROS: 21:03 Constitutional: Negative for fever, chills, and weight loss, Eyes: Negative for injury, bi pain, redness, and discharge, ENT: Negative for injury, pain, and discharge, Neck: Negative for injury, pain, and swelling, Cardiovascular: Negative for chest pain, palpitations, and edema, Respiratory: Negative for shortness of breath, cough, wheezing, and pleuritic chest pain, : Negative for injury, bleeding, discharge, and swelling, MS/Extremity: Negative for injury and deformity, Skin: Negative for injury, rash, and discoloration, Neuro: Negative for headache, weakness, numbness, tingling, and seizure, Psych: Negative for depression, anxiety, suicide ideation, homicidal ideation, and hallucinations, Allergy/Immunology: Negative for hives, rash, and allergies, Endocrine: Negative for neck swelling, polydipsia, polyuria, polyphagia, and marked weight changes, Hematologic/Lymphatic: Negative for swollen nodes, abnormal bleeding, and unusual bruising. 21:03 Abdomen/GI: Positive for oblique pain. Exam: 21:03 Constitutional: This is a well developed, well nourished patient who is awake, alert, bi and in no acute distress. Head/Face: Normocephalic, atraumatic. Eyes: Pupils equal round and reactive to light, extra-ocular motions intact. Lids and lashes normal. Conjunctiva and sclera are non-icteric and not injected. Cornea within normal limits. Periorbital areas with no swelling, redness, or edema. ENT: Nares patent. No nasal discharge, no septal abnormalities noted. Tympanic membranes are normal and external auditory canals are clear. Oropharynx with no redness, swelling, or masses, exudates, or evidence of obstruction, uvula midline. Mucous membranes moist. Neck: Trachea midline, no thyromegaly or masses palpated, and no cervical lymphadenopathy. Supple, full range of motion without nuchal rigidity, or vertebral point tenderness. No Meningismus. Cardiovascular: Regular rate and rhythm with a normal S1 and S2. No gallops, murmurs, or rubs. Normal PMI, no JVD. No pulse deficits. Respiratory: Lungs have equal breath sounds bilaterally, clear to auscultation and percussion. No rales, rhonchi or wheezes noted. No increased work of breathing, no retractions or nasal flaring. Abdomen/GI: Soft, non-tender, with normal bowel sounds. No distension or tympany. No guarding or rebound. No evidence of tenderness throughout. Back: No spinal tenderness. No costovertebral tenderness. Full range of motion. Skin: Warm, dry with normal turgor. Normal color with no rashes, no lesions, and no evidence of cellulitis. MS/ Extremity: Pulses equal, no cyanosis. Neurovascular intact. Full, normal range of motion. Neuro: Awake and alert, GCS 15, oriented to person, place, time, and situation. Cranial nerves II-XII grossly intact. Motor strength 5/5 in all extremities. Sensory grossly intact. Cerebellar exam normal. Normal gait. Psych: Awake, alert, with orientation to person, place and time. Behavior, mood, and affect are within normal limits. 21:03 Chest/axilla: Inspection: normal, Palpation: tenderness, that is mild, of the left lateral posterior chest and left lateral anterior chest, that totally reproduces the patient's complaints, Axilla: are normal, Breasts: are normal, no acute changes, Lymph nodes: lymphadenopathy is not appreciated. Vital Signs: 20:17 BP 161 / 84; Pulse 66; Resp 18; Temp 98.0(TE); Pulse Ox 99% on R/A; Weight 63.5 kg (R); fc Height 5 ft. 2 in. (157.48 cm) (R); Pain 8/10; 21:30 BP 157 / 70; Pulse 70; Resp 18; Pulse Ox 98% ; ea 20:17 Body Mass Index 25.61 (63.50 kg, 157.48 cm) MDM: 20:45 Patient medically screened. [facility] 21:03 Data reviewed: vital signs, nurses notes, lab test result(s), urinalysis. [facility] 02/06 21:28 Order name: Urine Dipstick--Ancillary (enter results) nv 02/06 21:03 Order name: Urine Dipstick-Ancillary (obtain specimen); Complete Time: 21:26 [facility] Administered Medications: 21:26 Drug: traMADol 50 mg Route: PO; ea 21:50 Follow up: Response: Medication administered at discharge. ea Disposition: 02/06/18 21:09 Discharged to Home. Impression: Low back pain, Strain of muscle, fascia and tendon of abdomen. - Condition is Stable. - Discharge Instructions: Back Pain, Adult, Musculoskeletal Pain, Back Injury Prevention, Ainf-gu-Kans, Back Pain, Adult, [id number]. - Prescriptions for Tramadol 50 mg Oral Tablet - take 1 tablet by ORAL route every 8 hours as needed; 26 tablet. - Medication Reconciliation Form, Thank You Letter, Antibiotic Education, Prescription Opioid Use form. - Follow up: Lorraine Donnelly MD; When: 2 - 3 days; Reason: Recheck today's complaints, Continuance of care, Re-evaluation by your physician. - Problem is new. - Symptoms have improved. Signatures: Dispatcher [employer] EDOH Marcos Pink MD MD cha Chretien, Felicia RN RN Kiley Dewitt RN RN ea Corrections: (The following items were deleted from the chart) 21:51 21:09 02/06/2018 21:09 Discharged to Home. Impression: Low back pain; Strain of muscle, ea fascia and tendon of abdomen. Condition is Stable. Forms are Medication Reconciliation Form, Thank You Letter, Antibiotic Education, Prescription Opioid Use. Follow up: Lorraine Donnelly; When: 2 - 3 days; Reason: Recheck today's complaints, Continuance of care, Re-evaluation by your physician. Problem is new. Symptoms have improved. bi
[2018-02-06] MEDS ORDERED: TRAMADOL HCL 50 MG TAB ONE (21:27)
[2018-02-06 21:43] LABS: Urine Blood NEGATIVE (NEG); Urine Glucose NEGATIVE (NEG); Urine Protein NEGATIVE (NEG); Urine Specific Gravity >1.030 (1.005-1.030)
[2018-02-06 21:55] VITALS: BP 161/84; TEMP 98; O2SAT 99
== END 2018-02-06 21:51 | disposition home or self-care (01) ==
LOC: ER 20:00
DX: S39.011A Strain of muscle, fascia and tendon of abdomen, initial encounter (principal); X50.9XXA Other and unspecified overexertion or strenuous movements or postures, initial encounter; Y93.89 Activity, other specified; Y92.9 Unspecified place or not applicable; Z85.528 Personal history of other malignant neoplasm of kidney; I10 Essential (primary) hypertension; E11.9 Type 2 diabetes mellitus without complications; F32.9 Major depressive disorder, single episode, unspecified; Z88.2 Allergy status to sulfonamides; Z88.3 Allergy status to other anti-infective agents; Z88.5 Allergy status to narcotic agent; Z91.013 Allergy to seafood; Z91.030 Bee allergy status; Z91.038 Other insect allergy status
CPT/HCPCS: 81003; 99283

== ENCOUNTER 2018-02-13 10:31 | Emergency (ER) | payer OTHER ==
--- NOTE | 2018-02-13 12:28 | ER ---
Nurse's Notes [facility] Name: Amber Acosta Age: 72 yrs Sex: Female : 1945 Arrival Date: 02/13/2018 Time: 10:34 Bed Waiting Private MD: Lorraine Donnelly Diagnosis: Presentation: 02/13 11:03 Presenting complaint: Patient states: "Yesterday I got stung, I was digging in the aj1 dirt, I thought it was probable an ant. Then I started feeling weird last night, and my finger is swollen." Redness and swelling noted to right middle finger. Decreased ROM noted to right middle finger. Transition of care: patient was not received from another setting of care. Onset of symptoms was February 12, 2018. Risk Assessment: Do you want to hurt yourself or someone else? Patient reports no desire to harm self or others. Care prior to arrival: None. 11:03 Method Of Arrival: Wheelchair aj1 11:03 Acuity: IVETTE 4 aj1 11:07 Initial Sepsis Screen: Does the patient meet any 2 criteria? Yes Does the patient have aj1 a suspected source of infection? Yes: Skin breakdown/wound. Triage Assessment: 11:05 Bite description: bite sustained to dorsal aspect of proximal phalanx of right middle aj1 finger by unknown insect. General: Appears in no apparent distress. uncomfortable, Behavior is calm, cooperative, appropriate for age. Pain: Pain currently is 8 out of 10 on a pain scale. Neuro: Level of Consciousness is awake, alert, obeys commands. Cardiovascular: Patient's skin is warm and dry. Respiratory: Airway is patent Respiratory effort is even, unlabored, Respiratory pattern is regular, symmetrical. Historical: - Allergies: 11:05 Bees; aj1 11:05 Codeine; aj1 11:05 Levofloxacin; aj1 11:05 METRONIDAZOLE; aj1 11:05 PENICILLINS; aj1 11:05 SHELLFISH; aj1 11:05 sulfamethoxazole; aj1 11:05 TRIMETHOPRIM; aj1 11:05 Wasps; aj1 - Home Meds: 11:05 Ativan Oral 1 tab nightly [Active]; Metoprolol Tartrate Oral 1 tab nightly [Active]; aj1 Simvastatin Oral nightly [Active]; - PMHx: 11:05 Anxiety; Depression; Diabetes - NIDDM; High Cholesterol; HTN, CVA; kidney cancer; aj1 Migraines; - Immunization history:: Flu vaccine is not up to date. - Social history:: Smoking status: Patient/guardian denies using tobacco. - Ebola Screening: : Patient denies travel to an Ebola-affected area in the 21 days before illness onset. Vital Signs: 11:05 BP 138 / 91; Pulse 70; Resp 18; Temp 97.2; Pulse Ox 97% on R/A; Weight 63.5 kg (R); aj1 Height 5 ft. 2 in. (157.48 cm) (R); Pain 8/10; 11:05 Body Mass Index 25.61 (63.50 kg, 157.48 cm) aj1 ED Course: 10:34 Patient arrived in ED. sb2 10:34 Lorraine Donnelly MD is Private Physician. sb2 11:04 Triage completed. aj1 11:07 Arm band placed on Patient placed in waiting room, Patient notified of wait time. aj1 12:24 [facility]. kb 12:24 Larry Oneil MD is Attending Physician. kb Administered Medications: No medications were administered Outcome: 12:26 Eloped from waiting room, Patient told Registration staff that she was leaving aj1 12:26 Condition: unchanged 12:28 Patient left the ED. aj1 Signatures: Jenny Rodriguez FNP-C FNP-Sierra Neri RN RN aj1 Kaye Samuel sb2
[2018-02-13 12:32] VITALS: BP 138/91; TEMP 97.2; O2SAT 97
== END 2018-02-13 12:28 | disposition left against medical advice (07) ==
LOC: ER 10:31
DX: Z53.21 Procedure and treatment not carried out due to patient leaving prior to being seen by health care provider (principal)
CPT/HCPCS: 99281

== ENCOUNTER 2018-02-15 16:51 | Emergency (ER) | payer OTHER ==
--- NOTE | 2018-02-15 17:18 | ER ---
Nurse's Notes [facility] Name: Amber Acosta Age: 72 yrs Sex: Female : 1945 Arrival Date: 02/15/2018 Time: 16:55 Bed 13 Private MD: Lorraine Donnelly Diagnosis: Rash and other nonspecific skin eruption Presentation: 02/15 17:01 Presenting complaint: Patient states: Reports one ant bite to left side of neck this aj AM. Transition of care: patient was not received from another setting of care. Onset of symptoms was February 15, 2018. Risk Assessment: Do you want to hurt yourself or someone else? Patient reports no desire to harm self or others. Initial Sepsis Screen: Does the patient meet any 2 criteria? No. Patient's initial sepsis screen is negative. Does the patient have a suspected source of infection? No. Patient's initial sepsis screen is negative. Care prior to arrival: None. 17:01 Method Of Arrival: Ambulatory aj 17:01 Acuity: IVETTE 4 aj Triage Assessment: 17:02 Bite description: bite sustained to left supraclavicular area is from insect was aj sustained 6-12 hours ago. by a fire ant, animal information: vaccination(s) is not applicable. General: Appears in no apparent distress. comfortable, Behavior is calm, cooperative, appropriate for age. Pain: Complains of pain in left supraclavicular area. Neuro: Level of Consciousness is awake, alert, obeys commands, Oriented to person, place, time, situation, Appropriate for age. Respiratory: Airway is patent Respiratory effort is even, unlabored, Respiratory pattern is regular, symmetrical. Derm: Skin is intact, is healthy with good turgor, Skin is pink, warm \T\ dry. normal. Injury Description: Bite sustained to left supraclavicular area caused by a fire ant. Historical: - Allergies: 17:02 Bees; aj 17:02 Codeine; aj 17:02 Levofloxacin; aj 17:02 METRONIDAZOLE; aj 17:02 PENICILLINS; aj 17:02 SHELLFISH; aj 17:02 sulfamethoxazole; aj 17:02 TRIMETHOPRIM; aj 17:02 Wasps; aj - Home Meds: 17:02 Ativan Oral 1 tab nightly [Active]; Metoprolol Tartrate Oral 1 tab nightly [Active]; aj Simvastatin Oral nightly [Active]; - PMHx: 17:02 Anxiety; Depression; Diabetes - NIDDM; High Cholesterol; HTN, CVA; kidney cancer; aj Migraines; - Immunization history:: Adult Immunizations up to date. - Social history:: Smoking status: Patient/guardian denies using tobacco. - Ebola Screening: : Patient negative for fever greater than or equal to 101.5 degrees Fahrenheit, and additional compatible Ebola Virus Disease symptoms Patient denies exposure to infectious person Patient denies travel to an Ebola-affected area in the 21 days before illness onset No symptoms or risks identified at this time. Screenin:23 Abuse screen: Denies threats or abuse. Nutritional screening: No deficits noted. em Tuberculosis screening: No symptoms or risk factors identified. Fall Risk None identified. Assessment: 17:15 General: Appears in no apparent distress. comfortable, Behavior is calm, cooperative. em Pain: Denies pain. Neuro: Level of Consciousness is awake, alert, obeys commands, Oriented to person, place, time, situation, Gait is steady, Speech is normal. Cardiovascular: Capillary refill < 3 seconds Patient's skin is warm and dry. Respiratory: Airway is patent Trachea Respiratory pattern is regular, symmetrical, Breath sounds are clear bilaterally. Denies shortness of breath. GI: Abdomen is flat. : No signs and/or symptoms were reported regarding the genitourinary system. EENT: Oral mucosa is moist. Throat is clear is pink. Derm: Skin is intact, redness noted to the left side of neck. Musculoskeletal: Range of motion: intact in all extremities. Vital Signs: 17:02 BP 150 / 88; Pulse 87; Resp 19; Temp 97.7; Pulse Ox 98% on R/A; Weight 63.5 kg; Height aj 5 ft. 2 in. (157.48 cm); 17:02 Body Mass Index 25.61 (63.50 kg, 157.48 cm) ED Course: 16:55 Patient arrived in ED. mr 16:55 Lorraine Donnelly MD is Private Physician. mr 17:00 [facility] 17:00 Jaxson Rios MD is Attending Physician. [facility] 17:02 Triage completed. aj 17:02 Arm band placed on right wrist. Patient placed in an exam room. aj 17:17 Lorraine Donnelly MD is Referral Physician. [facility] 17:21 Yung Bowden LVN is Primary Nurse. em 17:23 Patient has correct armband on for positive identification. Bed in low position. Call em light in reach. 17:23 No provider procedures requiring assistance completed. Patient did not have IV access em during this emergency room visit. Administered Medications: No medications were administered Outcome: 17:17 Discharge ordered by MD. [facility] 17:23 Discharged to home ambulatory. em 17:23 Condition: good 17:23 Discharge instructions given to patient, Instructed on discharge instructions, follow up and referral plans. medication usage, Demonstrated understanding of instructions, follow-up care, medications, Prescriptions given X 2. 17:24 Patient left the ED. em Signatures: Adelina Tierney, RN RN Reynaldo James PA PA jmm Reshma Gallardo Yung Bowden LVN LVN em Corrections: (The following items were deleted from the chart) 17:24 17:15 Respiratory: Airway is patent Trachea Respiratory pattern is regular, em symmetrical, Breath sounds are clear bilaterally. em 17:24 17:15 EENT: No signs and/or symptoms were reported regarding the EENT system. em em
--- NOTE | 2018-02-15 17:18 | EDPHYS ---
Physician Documentation [facility] Name: Amber Acosta Age: 72 yrs Sex: Female : 1945 Arrival Date: 02/15/2018 Time: 16:55 Bed 13 Private MD: Lorraine Donnelly ED Physician Jaxson Rios HPI: 02/15 17:16 This 72 yrs old Female presents to ER via Ambulatory with complaints of jmm Insect Bite. 17:16 The patient's rash thought to be caused by allergies. The rash is located on the left jmm supraclavicular area. Onset: The symptoms/episode began/occurred gradually, today. Associated signs and symptoms: Pertinent positives: burning sensation, itching, Pertinent negatives: fever, swelling of lips, swelling of throat, swelling of tongue, vomiting. This is a 72 year old female with a history of DM that presents to the ED with a rash to the left supraclavicular region beginning earlier today. patient is concerned this may be an allergic reaction. patient denies fever. . Historical: - Allergies: 17:02 Bees; aj 17:02 Codeine; aj 17:02 Levofloxacin; aj 17:02 METRONIDAZOLE; aj 17:02 PENICILLINS; aj 17:02 SHELLFISH; aj 17:02 sulfamethoxazole; aj 17:02 TRIMETHOPRIM; aj 17:02 Wasps; aj - Home Meds: 17:02 Ativan Oral 1 tab nightly [Active]; Metoprolol Tartrate Oral 1 tab nightly [Active]; aj Simvastatin Oral nightly [Active]; - PMHx: 17:02 Anxiety; Depression; Diabetes - NIDDM; High Cholesterol; HTN, CVA; kidney cancer; aj Migraines; - Immunization history:: Adult Immunizations up to date. - Social history:: Smoking status: Patient/guardian denies using tobacco. - Ebola Screening: : Patient negative for fever greater than or equal to 101.5 degrees Fahrenheit, and additional compatible Ebola Virus Disease symptoms Patient denies exposure to infectious person Patient denies travel to an Ebola-affected area in the 21 days before illness onset No symptoms or risks identified at this time. ROS: 17:16 Constitutional: Negative for fever, chills, and weight loss, Cardiovascular: Negative jm for chest pain, palpitations, and edema, Respiratory: Negative for shortness of breath, cough, wheezing, and pleuritic chest pain. 17:16 Skin: Positive for erythema. 17:16 All other systems are negative. Exam: 17:16 Head/Face: atraumatic. [facility] 17:16 Cardiovascular: Regular rate and rhythm. No edema appreciated Respiratory: Normal respirations, no respiratory distress appreciated 17:16 Constitutional: The patient appears in no acute distress, alert, awake. 17:16 Chest/axilla: erythematous rash noted to the left side of the supraclavicular region, non indurated, non vesicular, non tender to palpation. 17:16 Musculoskeletal/extremity: ROM: intact in all extremities. 17:16 Skin: erythema noted to the left supraclavicular region. 17:16 Neuro: Orientation: is normal, Mentation: is normal, Memory: is normal, Gait: is steady. 17:16 Psych: Behavior/mood is pleasant, cooperative. Vital Signs: 17:02 BP 150 / 88; Pulse 87; Resp 19; Temp 97.7; Pulse Ox 98% on R/A; Weight 63.5 kg; Height aj 5 ft. 2 in. (157.48 cm); 17:02 Body Mass Index 25.61 (63.50 kg, 157.48 cm) MDM: 17:16 Patient medically screened. [facility] 17:16 Data reviewed: vital signs, nurses notes. Counseling: I had a detailed discussion with tulio the patient and/or guardian regarding: the historical points, exam findings, and any diagnostic results supporting the discharge/admit diagnosis, the need for outpatient follow up, to return to the emergency department if symptoms worsen or persist or if there are any questions or concerns that arise at home. 17:16 Data interpreted: Pulse oximetry: on room air is 98 %. Interpretation: normal. ED [facility] course: Patient is alert and non toxic in appearance in the ED. Patient advised to check blood glucose levels twice a day and d/c medrol dose pack if bgl increases. patient otherwise given strict return precautions. patient understood and agrees with the plan of care. . Administered Medications: No medications were administered Disposition: 18:22 Co-signature as Attending Physician, Jaxson Rios MD. rn Disposition: 02/15/18 17:17 Discharged to Home. Impression: Rash and other nonspecific skin eruption. - Condition is Stable. - Discharge Instructions: Rash. - Prescriptions for Benadryl 25 mg Oral Capsule - take 1 capsule by ORAL route every 6 hours As needed; 30 tablet. Medrol (Ney) 4 mg Oral Tablets, Dose Pack - take 1 tablet by ORAL route as directed - follow package instructions; 1 packet. - Medication Reconciliation Form, Thank You Letter, Antibiotic Education, Prescription Opioid Use form. - Follow up: Lorraine Donnelly MD; When: 2 - 3 days; Reason: Recheck today's complaints, Continuance of care, Re-evaluation by your physician. Signatures: Adelina Tierney RN RN Reynaldo James PA PA jmm Munoz, Edgar, RETURN TO FACTORY CLERK RETURN TO FACTORY CLERK em Jaxson Rios MD MD rn neonatal icu: (The following items were deleted from the chart) 17:24 17:17 02/15/2018 17:17 Discharged to Home. Impression: Rash and other nonspecific skin em eruption. Condition is Stable. Forms are Medication Reconciliation Form, Thank You Letter, Antibiotic Education, Prescription Opioid Use. Follow up: Lorraine Donnelly; When: 2 - 3 days; Reason: Recheck today's complaints, Continuance of care, Re-evaluation by your physician. tulio
[2018-02-15 17:29] VITALS: BP 150/88; TEMP 97.7; O2SAT 98
== END 2018-02-15 17:24 | disposition home or self-care (01) ==
LOC: ER 16:51
DX: R21 Rash and other nonspecific skin eruption (principal); I10 Essential (primary) hypertension; E11.9 Type 2 diabetes mellitus without complications; F41.9 Anxiety disorder, unspecified; E78.00 Pure hypercholesterolemia, unspecified; Z88.0 Allergy status to penicillin; Z88.1 Allergy status to other antibiotic agents; Z88.2 Allergy status to sulfonamides; Z88.5 Allergy status to narcotic agent; Z88.8 Allergy status to other drugs, medicaments and biological substances; Z86.73 Personal history of transient ischemic attack (TIA), and cerebral infarction without residual deficits; Z85.528 Personal history of other malignant neoplasm of kidney; Z91.013 Allergy to seafood; Z91.030 Bee allergy status; Z91.038 Other insect allergy status
CPT/HCPCS: 99282

== ENCOUNTER 2018-02-19 06:16 | Emergency (ER) | payer OTHER ==
[2018-02-19] MEDS ORDERED: ACETAMINOPHEN 500 MG TAB ONE (06:45)
[2018-02-19] MEDS ORDERED: NA CHLORIDE 0.9% 0 ML ONE (06:45)
[2018-02-19] MEDS ORDERED: NA CHLORIDE 0.9% 1,000 ML ONE (06:47)
[2018-02-19 06:49] LABS: Absolute Lymphocytes (CBC) 1.8 K/uL (0.7-4.9); Absolute Neutrophil 3.4 K/uL (1.8-8.0); Basophils % 0.8 % (0-1.3); Eosinophils % 3.7 % (0-4.4); Hematocrit 42.4 % (36.0-45.0); Lymphocytes % 28.6 % (15.3-44.8); MCH 29.7 pg (27.0-35.0); MCV 89.7 fL (80-100); MPV 9.6 fL (7.6-11.3); Monocytes % 14.9 % (3.3-12.3); RBC Red Blood Cell Count 4.73 M/uL (3.86-4.86)
[2018-02-19 06:52] LABS: Protime INR 0.93
[2018-02-19 07:09] LABS: ALT/SGPT 22 U/L (12-78); AST/SGOT 21 U/L (15-37); Albumin 3.4 g/dL (3.4-5.0); Alkaline Phosphatase 73 U/L (45-117); BUN Blood Urea Nitrogen 13 mg/dL (7-18); Bicarbonate 25 mmol/L (21-32); Bilirubin Direct 0.2 mg/dL (0-0.2); Bilirubin Total 0.7 mg/dL (0.2-1.0); Glucose Level 98 mg/dL (74-106); Magnesium 2.3 mg/dL (1.8-2.4); Potassium 3.6 mmol/L (3.5-5.1); Protein, Total 6.9 g/dL (6.4-8.2); Sodium Level 143 mmol/L (136-145); Troponin (Emerg Dept Use Only) < 0.02 ng/mL (0.0-0.045)
[2018-02-19] MEDS ORDERED: MEPERIDINE HCL 25 MG/0.5 ML ONE (07:22)
--- NOTE | 2018-02-19 07:39 | ER ---
Nurse's Notes [facility] Name: Amber Acosta Age: 72 yrs Sex: Female : 1945 Arrival Date: 02/19/2018 Time: 06:18 Bed 18 Private MD: Diagnosis: Headache;Hypertensive heart disease Presentation: 02/19 06:19 Presenting complaint: EMS states: Pt was complaining of a headache that woke her from [facility] sleep. Upon arrival she was hypertensive with a b/p as high as 181/95. Transition of care: patient was not received from another setting of care. Onset of symptoms was February 19, 2018. Risk Assessment: Do you want to hurt yourself or someone else? Patient reports no desire to harm self or others. Initial Sepsis Screen: Does the patient meet any 2 criteria? No. Patient's initial sepsis screen is negative. Does the patient have a suspected source of infection? No. Patient's initial sepsis screen is negative. Care prior to arrival: None. 06:19 Method Of Arrival: EMS: [place] [id number] 06:19 Acuity: IVETTE 3 jb4 Triage Assessment: 06:28 Headache History: The patient has had previous headaches and this one is similar to [facility] previous episodes. General: Appears in no apparent distress. comfortable, Behavior is calm, cooperative, appropriate for age. Pain: Complains of pain in headache. Pain does not radiate. Pain currently is 7 out of 10 on a pain scale. Pain began 2 hours ago. Also complains of no other associated symptoms. EENT: No signs and/or symptoms were reported regarding the EENT system. Neuro: Level of Consciousness is awake, alert, obeys commands, Oriented to person, place, time, situation. Cardiovascular: Patient's skin is warm and dry. Respiratory: Airway is patent Respiratory effort is even, unlabored, Respiratory pattern is regular, symmetrical. GI: No signs and/or symptoms were reported involving the gastrointestinal system. : No signs and/or symptoms were reported regarding the genitourinary system. Derm: Skin is intact, Skin is pink, warm \T\ dry. Musculoskeletal: Circulation, motion, and sensation intact. Historical: - Allergies: 06:27 Bees; jb4 06:27 Codeine; jb4 06:27 Levofloxacin; jb4 06:27 METRONIDAZOLE; jb4 06:27 PENICILLINS; jb4 06:27 SHELLFISH; jb4 06:27 sulfamethoxazole; jb4 06:27 TRIMETHOPRIM; jb4 06:27 Wasps; jb4 06:28 hydrocodone bitartrate; jb4 - Home Meds: 06:27 Ativan Oral 1 tab nightly [Active]; Metoprolol Tartrate Oral 1 tab nightly [Active]; jb4 Simvastatin Oral nightly [Active]; doxazosin oral oral [Active]; - PMHx: 06:27 Migraines; kidney cancer; HTN, CVA; High Cholesterol; Diabetes - NIDDM; Depression; jb4 Anxiety; - PSHx: 06:27 Hysterectomy; intestinal cancer removal; jb4 - Immunization history:: Adult Immunizations up to date, Flu vaccine is up to date. - Social history:: Smoking status: Patient/guardian denies using tobacco. - Ebola Screening: : No symptoms or risks identified at this time. Screenin:32 Abuse screen: Denies threats or abuse. Nutritional screening: No deficits noted. jb4 Tuberculosis screening: No symptoms or risk factors identified. Fall Risk None identified. Assessment: 06:32 General: see triage assessment.. Pain: Complains of pain in headache Pain currently is jb4 7 out of 10 on a pain scale. at worst was 10 out of 10 on a pain scale. Quality of pain is described as pressure. 06:49 Reassessment: Pt to CT. jb4 07:53 Reassessment: Patient appears in no apparent distress at this time. Patient and/or iw family updated on plan of care and expected duration. Pain level reassessed. Patient is alert, oriented x 3, equal unlabored respirations, skin warm/dry/pink. Patient states feeling better. Patient states symptoms have improved. Vital Signs: 06:28 BP 169 / 108; Pulse 68; Resp 18; Temp 98.3; Pulse Ox 94% on R/A; Weight 63.5 kg; Height jb4 5 ft. 2 in. (157.48 cm); Pain 7/10; 07:52 BP 149 / 81; Pulse 62; Resp 16; Pulse Ox 98% on R/A; Pain 2/10; iw 06:28 Body Mass Index 25.61 (63.50 kg, 157.48 cm) jb4 ED Course: 06:18 Patient arrived in ED. jb4 06:19 Marcos Cintron PA is PHCP. cp 06:20 Marcos Pink MD is Attending Physician. cp 06:20 Triage completed. jb4 06:25 Inserted saline lock: 20 gauge in right antecubital area, using aseptic technique. cc3 Blood collected. inserted by MARCI Cochran. 06:28 Arm band placed on right wrist. jb4 06:32 Patient has correct armband on for positive identification. Placed in gown. Bed in low jb4 position. Call light in reach. Side rails up X 1. director of recruitment on. Pulse ox on. NIBP on. 06:32 EKG done, by ED staff, reviewed by Marcos FUNK. jb4 06:34 Hipolito Vila, RN is Primary Nurse. jb4 06:[address] via wheelchair. kw1 06:55 CT Head Brain wo Cont In Process Unspecified. EDMS 07:01 Primary Nurse role handed off by Hipolito Vila, RN sg 07:01 Jai New, RN is Primary Nurse. sg 08:22 No provider procedures requiring assistance completed. IV discontinued, intact, iw bleeding controlled, No redness/swelling at site. Pressure dressing applied. Administered Medications: 06:44 Drug: NS 0.9% 250 ml Route: IV; Rate: bolus; Site: right antecubital; jb4 06:45 Drug: Tylenol 1000 mg Route: PO; jb4 07:01 Drug: NS 0.9% 1000 ml Route: IV; Rate: 75 ml/hr; Site: right antecubital; sg 07:09 CANCELLED (Physician Discretion): Hydrocodone-Acetaminophen (7.5 mg-325 mg) 1 tabs PO cp once 07:21 Drug: Demerol - Meperidine 12.5 mg Route: IVP; Site: right antecubital; sg 07:58 Follow up: Response: No adverse reaction; Pain is decreased iw Outcome: 07:39 Discharge ordered by MD. cp 08:21 Discharged to home via wheelchair, with friend. iw 08:21 Condition: good 08:21 Discharge instructions given to patient, Instructed on discharge instructions, follow up and referral plans. Demonstrated understanding of instructions, follow-up care. 08:22 Patient left the ED. iw Signatures: Dispatcher [employer] EDMI Jai New RN RN sg Williams, Irene, RN RN iw Page, BLESSING Rodríguez cp, James, RN RN jb4 Ting Mitchell kw1 María Kay cc3 Corrections: (The following items were deleted from the chart) 07:01 07:01 NS 0.9% 1000 ml IV at 75 ml/hr in left antecubital sg sg
--- NOTE | 2018-02-19 07:40 | EDPHYS ---
Physician Documentation [facility] Name: Amber Acosta Age: 72 yrs Sex: Female : 1945 Arrival Date: 02/19/2018 Time: 06:18 Bed 18 Private MD: ED Physician Marcos Pink HPI: 02/19 06:34 This 72 yrs old Female presents to ER via EMS with complaints of High Blood cp Pressure, Headache. 06:34 The patient has elevated blood pressure and discovered this at home, with a home cp device. Onset: The symptoms/episode began/occurred this morning. Associated signs and symptoms: Pertinent positives: headache, Pertinent negatives: chest pain, visual changes, vomiting, weakness. 06:34 Severity of symptoms: in the emergency department the blood pressure is improved, 169 cp mm Hg. Historical: - Allergies: 06:27 Bees; jb4 06:27 Codeine; jb4 06:27 Levofloxacin; jb4 06:27 METRONIDAZOLE; jb4 06:27 PENICILLINS; jb4 06:27 SHELLFISH; jb4 06:27 sulfamethoxazole; jb4 06:27 TRIMETHOPRIM; jb4 06:27 Wasps; jb4 06:28 hydrocodone bitartrate; jb4 - Home Meds: 06:27 Ativan Oral 1 tab nightly [Active]; Metoprolol Tartrate Oral 1 tab nightly [Active]; jb4 Simvastatin Oral nightly [Active]; doxazosin oral oral [Active]; - PMHx: 06:27 Migraines; kidney cancer; HTN, CVA; High Cholesterol; Diabetes - NIDDM; Depression; jb4 Anxiety; - PSHx: 06:27 Hysterectomy; intestinal cancer removal; jb4 - Immunization history:: Adult Immunizations up to date, Flu vaccine is up to date. - Social history:: Smoking status: Patient/guardian denies using tobacco. - Ebola Screening: : No symptoms or risks identified at this time. ROS: 06:37 Constitutional: Negative for body aches, chills, fever, poor PO intake. cp 06:37 Eyes: Negative for injury, pain, redness, and discharge. cp 06:37 ENT: Negative for drainage from ear(s), ear pain, rhinorrhea, sore throat, difficulty swallowing, difficulty handling secretions. 06:37 Cardiovascular: Negative for chest pain, edema, palpitations. 06:37 Respiratory: Negative for cough, shortness of breath, wheezing. 06:37 Abdomen/GI: Negative for abdominal pain, nausea, vomiting, and diarrhea, black/tarry stool, rectal bleeding. 06:37 Back: Negative for pain at rest, pain with movement, radiated pain. 06:37 : Negative for urinary symptoms. 06:37 Skin: Negative for cellulitis, rash. 06:37 Neuro: Positive for headache, Negative for altered mental status, dizziness, syncope, near syncope, weakness. 06:37 All other systems are negative. Exam: 06:39 ECG was reviewed by the Attending Physician. cp 06:45 Constitutional: The patient appears in no acute distress, alert, awake, cp non-diaphoretic, non-toxic, well developed, well nourished. 06:45 Head/Face: Normocephalic, atraumatic. cp 06:45 Eyes: Pupils equal round and reactive to light, extra-ocular motions intact. Lids and lashes normal. Conjunctiva and sclera are non-icteric and not injected. Cornea within normal limits. Periorbital areas with no swelling, redness, or edema. ENT: Nares patent. No nasal discharge, no septal abnormalities noted. Tympanic membranes are normal and external auditory canals are clear. Oropharynx with no redness, swelling, or masses, exudates, or evidence of obstruction, uvula midline. Mucous membranes moist. Neck: Trachea midline, no thyromegaly or masses palpated, and no cervical lymphadenopathy. Supple, full range of motion without nuchal rigidity, or vertebral point tenderness. No Meningismus. Chest/axilla: Normal chest wall appearance and motion. Nontender with no deformity. No lesions are appreciated. 06:45 Cardiovascular: Rate: normal, Rhythm: regular, Pulses: Pulses are 2+ in right radial artery and left radial artery. Edema: is not appreciated, JVD: is not appreciated. 06:45 Respiratory: the patient does not display signs of respiratory distress, Respirations: normal, no use of accessory muscles, no retractions, no splinting, no tachypnea, labored breathing, is not present, Breath sounds: are clear throughout, no decreased breath sounds, no stridor, no wheezing. 06:45 Abdomen/GI: Inspection: abdomen appears normal, Bowel sounds: active, all quadrants, Palpation: abdomen is soft and non-tender, in all quadrants, rebound tenderness, is not appreciated, voluntary guarding, is not appreciated, involuntary guarding, is not appreciated. 06:45 Back: pain, is absent, ROM is normal. 06:45 Skin: cellulitis, is not appreciated, no rash present. 06:45 Neuro: Orientation: to person, place \T\ time. Mentation: is normal, Cerebellar function: is grossly normal, Motor: moves all fours, strength is normal, Sensation: is normal. Vital Signs: 06:28 BP 169 / 108; Pulse 68; Resp 18; Temp 98.3; Pulse Ox 94% on R/A; Weight 63.5 kg; Height jb4 5 ft. 2 in. (157.48 cm); Pain 7/10; 07:52 BP 149 / 81; Pulse 62; Resp 16; Pulse Ox 98% on R/A; Pain 2/10; iw 06:28 Body Mass Index 25.61 (63.50 kg, 157.48 cm) jb4 MDM: 06:20 Patient medically screened. 07:37 Data reviewed: vital signs, nurses notes, lab test result(s), EKG, radiologic studies, cp CT scan, and as a result, I will discharge patient. 07:37 Counseling: I had a detailed discussion with the patient and/or guardian regarding: the cp historical points, exam findings, and any diagnostic results supporting the discharge/admit diagnosis, lab results, radiology results, to return to the emergency department if symptoms worsen or persist or if there are any questions or concerns that arise at home. ED course: VSS. Headache markedly improved. Will discharge to home for continued monitoring. 02/19 06:33 Order name: Basic Metabolic Panel; Complete Time: 07:10 cp 02/19 07:10 Interpretation: Normal except: CL 110; GFR 82. 02/19 06:33 Order name: CBC with Diff; Complete Time: 07:09 cp 02/19 07:10 Interpretation: Normal except: MCV 89.7; MN% 14.9. 02/19 06:33 Order name: LFT's; Complete Time: 07:10 cp 02/19 07:10 Interpretation: Normal except: A/G 1.0. 02/19 06:33 Order name: Magnesium; Complete Time: 07:12 cp 02/19 07:12 Interpretation: Reviewed. 02/19 06:33 Order name: PT-INR; Complete Time: 07:09 cp 02/19 07:13 Interpretation: Reviewed. 02/19 06:33 Order name: Troponin (emerg Dept Use Only); Complete Time: 07:10 cp 02/19 07:10 Interpretation: TROPED < 0.02; Reviewed. 02/19 06:33 Order name: CT Head Brain wo Cont; Complete Time: 08:06 cp 02/19 08:06 Interpretation: Report reviewed. 02/19 06:33 Order name: EKG; Complete Time: 06:34 cp 02/19 06:33 Order name: Cardiac monitoring; Complete Time: 06:35 cp 02/19 06:33 Order name: EKG - Nurse/Tech; Complete Time: 06:35 cp 02/19 06:33 Order name: IV Saline Lock; Complete Time: 06:35 cp 02/19 06:33 Order name: Labs collected and sent; Complete Time: 06:35 cp 02/19 06:33 Order name: O2 Per Protocol; Complete Time: 06:35 cp 02/19 06:33 Order name: O2 Sat Monitoring; Complete Time: 06:34 cp EC:39 Rate is 68 beats/min. Rhythm is regular. IN interval is normal. QRS interval is normal. cp QT interval is normal. Interpreted by me. Reviewed by me. Administered Medications: 06:44 Drug: NS 0.9% 250 ml Route: IV; Rate: bolus; Site: right antecubital; jb4 06:45 Drug: Tylenol 1000 mg Route: PO; jb4 07:01 Drug: NS 0.9% 1000 ml Route: IV; Rate: 75 ml/hr; Site: right antecubital; sg 07:09 CANCELLED (Physician Discretion): Hydrocodone-Acetaminophen (7.5 mg-325 mg) 1 tabs PO cp once 07:21 Drug: Demerol - Meperidine 12.5 mg Route: IVP; Site: right antecubital; sg 07:58 Follow up: Response: No adverse reaction; Pain is decreased iw Disposition: 09:24 Co-signature as Attending Physician, Marcos Pink MD I agree with the assessment and bi plan of care. Disposition: 02/19/18 07:39 Discharged to Home. Impression: Headache, Hypertensive heart disease. - Condition is Stable. - Discharge Instructions: General Headache Without Cause, Hypertension, How to Take Your Blood Pressure, [id number], Managing Your Hypertension. - Medication Reconciliation Form, Thank You Letter, Antibiotic Education, Prescription Opioid Use form. - Follow up: Private Physician; When: 1 - 2 days; Reason: elevated blood pressure. - Problem is new. - Symptoms have improved. Signatures: Dispatcher [employer] EDMS Jai New RN RN sg Anderson, Corey, MD MD cha Williams, Irene, RN RN iw Page, Corey, PA PA cp Bryson, James RN RN jb4 Corrections: (The following items were deleted from the chart) 06:36 06:34 Severity of symptoms: in the emergency department the blood pressure is systolic cp pressure 169, cp 07:09 07:09 Hydrocodone-Acetaminophen (7.5 mg-325 mg) 1 tabs PO once ordered. cp cp 07:11 07:10 Normal except: MCV 89.7. cp cp 08:21 06:34 Urine Dipstick-Ancillary ordered. cp iw 08:22 07:39 02/19/2018 07:39 Discharged to Home. Impression: Headache; Hypertensive heart iw disease. Condition is Stable. Forms are Medication Reconciliation Form, Thank You Letter, Antibiotic Education, Prescription Opioid Use. Follow up: Private Physician; When: 1 - 2 days; Reason: elevated blood pressure. Problem is new. Symptoms have improved. cp
--- NOTE | 2018-02-19 08:00 | RAD REPORT ---
EXAM DESCRIPTION: CT - Head Brain Wo Cont - 02/19/2018 7:10 am CLINICAL HISTORY: Headache COMPARISON: May 2017 TECHNIQUE: Computed axial tomography of the head was obtained. IV contrast was not requested. Prelim report was generated virtual radiologic and prior to dictation All CT scans are performed using dose optimization technique as appropriate and may include automated exposure control or mA/KV adjustment according to patient size. FINDINGS: An intracranial bleed is not seen . The ventricles are normal in caliber. No extra-axial fluid collection is noted. Low-density within the right basal ganglia is unchanged com patible with an old lacunar infarction. Mild to moderate low-density within periventricular, deep and subcortical white matter likely represents ischemic changes secondary to small vessel disease Fluid within the sinuses/ mastoids is not seen. IMPRESSION: No acute intracranial abnormality is seen. If patient's symptoms persist MRI of the bra in would be recommended.
[2018-02-19 08:26] VITALS: TEMP 98.3
[2018-02-19 08:28] VITALS: BP 149/81; O2SAT 98
--- NOTE | 2018-02-19 13:55 | EKG ---
Test Date: 2018-02-19 Test Time: 06:26:22 Online Education Manager: CLINT MEASUREMENT RESULTS: Intervals: Rate: 68 HI: 158 QRSD: 86 QT: 408 QTc: 433 [place]: P: 42 HI: 158 QRS: 13 T: 64 INTERPRETIVE STATEMENTS: Normal sinus rhythm Normal ECG Compared to ECG 08/13/2017 13:43:14 Sinus bradycardia no longer present Left ventricular hypertrophy no longer present Electronically Signed On 02-19-18 13:53:18 CDT by Jose Antonio Finn
== END 2018-02-19 08:22 | disposition home or self-care (01) ==
LOC: ER 06:16
DX: I11.9 Hypertensive heart disease without heart failure (principal)
CPT/HCPCS: 36415; 70450; 80048; 80076; 83735; 84484; 85025; 85610; 93005; 96374; 99285; J2175; J7030; 96375

== ENCOUNTER 2018-02-21 20:06 | Emergency (ER) | payer OTHER ==
--- NOTE | 2018-02-21 21:18 | ER ---
Nurse's Notes [facility] Name: Amber Acosta Age: 72 yrs Sex: Female : 1945 Arrival Date: 02/21/2018 Time: 20:13 Bed 26 Private MD: Diagnosis: Uncontrolled Hypertension Presentation: 02/21 20:16 Presenting complaint: Patient states: Reports high blood pressure reading at home that aj caused patient to panic and land to ER. Patient is crying in triage. Transition of care: patient was not received from another setting of care. Onset of symptoms was February 21, 2018. Risk Assessment: Do you want to hurt yourself or someone else? Patient reports no desire to harm self or others. Initial Sepsis Screen: Does the patient meet any 2 criteria? No. Patient's initial sepsis screen is negative. Does the patient have a suspected source of infection? No. Patient's initial sepsis screen is negative. Care prior to arrival: None. 20:16 Method Of Arrival: Wheelchair aj 20:16 Acuity: IVETTE 3 aj Triage Assessment: 20:17 General: Appears in no apparent distress. comfortable, Behavior is appropriate for age, aj anxious. Pain: Complains of pain in face and scalp. Neuro: Level of Consciousness is awake, alert, obeys commands, Oriented to person, place, time, situation, Appropriate for age Reports headache. Respiratory: Airway is patent Respiratory effort is even, unlabored, Respiratory pattern is regular, symmetrical. Derm: Skin is intact, is healthy with good turgor, Skin is pink, warm \T\ dry. normal. Historical: - Allergies: 20:17 Bees; aj 20:17 Codeine; aj 20:17 hydrocodone bitartrate; aj 20:17 Levofloxacin; aj 20:17 METRONIDAZOLE; aj 20:17 PENICILLINS; aj 20:17 SHELLFISH; aj 20:17 sulfamethoxazole; aj 20:17 TRIMETHOPRIM; aj 20:17 Wasps; aj - Home Meds: 20:17 Ativan Oral 1 tab nightly [Active]; doxazosin Oral [Active]; Metoprolol Tartrate Oral 1 aj tab nightly [Active]; Simvastatin Oral nightly [Active]; Hydrocodone-Acetaminophen Oral [Active]; - PMHx: 20:17 Anxiety; Depression; Diabetes - NIDDM; High Cholesterol; kidney cancer; Migraines; aj Hypertension; - PSHx: 20:17 Hysterectomy; intestinal cancer removal; aj - Immunization history:: Adult Immunizations up to date. - Social history:: Smoking status: Patient/guardian denies using tobacco. - Ebola Screening: : Patient negative for fever greater than or equal to 101.5 degrees Fahrenheit, and additional compatible Ebola Virus Disease symptoms Patient denies exposure to infectious person Patient denies travel to an Ebola-affected area in the 21 days before illness onset No symptoms or risks identified at this time. Screenin:31 Abuse screen: Denies threats or abuse. Denies injuries from another. Nutritional mg2 screening: No deficits noted. Tuberculosis screening: No symptoms or risk factors identified. Fall Risk None identified. Assessment: 20:35 General: Appears in no apparent distress. comfortable, Behavior is calm, cooperative. rv Pain: Complains of pain in head. Neuro: Level of Consciousness is awake, alert, obeys commands, Oriented to person, place, time, situation. Cardiovascular: Capillary refill < 3 seconds. Respiratory: Airway is patent. GI: No signs and/or symptoms were reported involving the gastrointestinal system. : No signs and/or symptoms were reported regarding the genitourinary system. EENT: No signs and/or symptoms were reported regarding the EENT system. Derm: Skin is intact. Vital Signs: 20:17 BP 164 / 96; Pulse 89; Resp 19; Temp 97.3; Pulse Ox 100% on R/A; Weight 63.5 kg; Height aj 5 ft. 2 in. (157.48 cm); 20:33 BP 180 / 102; Pulse 88; Resp 18; Pulse Ox 100% on R/A; Pain 8/10; mg2 21:19 BP 184 / 92; Pulse 56; Pulse Ox 96% on R/A; rv 20:17 Body Mass Index 25.61 (63.50 kg, 157.48 cm) aj ED Course: 20:13 Patient arrived in ED. ds1 20:16 Triage completed. aj 20:17 Arm band placed on left wrist. Patient placed in an exam room. aj 20:22 Wild Izquierdo MD is Attending Physician. ps1 20:31 Wale Black RN is Primary Nurse. mg2 20:32 Patient has correct armband on for positive identification. Bed in low position. Call mg2 light in reach. Pulse ox on. NIBP on. 20:33 No provider procedures requiring assistance completed. mg2 21:20 Patient did not have IV access during this emergency room visit. rv Administered Medications: No medications were administered Outcome: 21:17 Discharge ordered by . ps1 21:20 Discharged to home ambulatory. rv 21:20 Condition: good 21:20 Discharge instructions given to patient, Instructed on discharge instructions, follow up and referral plans. Demonstrated understanding of instructions, follow-up care. 21:20 Patient left the ED. rv Signatures: Adelina Tierney, RN RN aj Melanie Aceves ds1 Wild Izquierdo MD MD ps1 Wale Black, RN RN mg2 Salo Barba RN RN rv
--- NOTE | 2018-02-21 21:18 | EDPHYS ---
Physician Documentation [facility] Name: Amber Acosta Age: 72 yrs Sex: Female : 1945 Arrival Date: 02/21/2018 Time: 20:13 Bed 26 Private MD: ED Physician Wild Izquierdo HPI: 02/21 21:06 This 72 yrs old Female presents to ER via Wheelchair with complaints of High ps1 Blood Pressure. 21:06 patient has long history of HTN, anxiety, and headaches. She states that her blood ps1 pressure was elevated and it "freaked her out".She came in for evaluation. States she has a headache, mild, occipital. She states that she has not taken her nighttime BP meds. . Historical: - Allergies: 20:17 Bees; aj 20:17 Codeine; aj 20:17 hydrocodone bitartrate; aj 20:17 Levofloxacin; aj 20:17 METRONIDAZOLE; aj 20:17 PENICILLINS; aj 20:17 SHELLFISH; aj 20:17 sulfamethoxazole; aj 20:17 TRIMETHOPRIM; aj 20:17 Wasps; aj - Home Meds: 20:17 Ativan Oral 1 tab nightly [Active]; doxazosin Oral [Active]; Metoprolol Tartrate Oral 1 aj tab nightly [Active]; Simvastatin Oral nightly [Active]; Hydrocodone-Acetaminophen Oral [Active]; - PMHx: 20:17 Anxiety; Depression; Diabetes - NIDDM; High Cholesterol; kidney cancer; Migraines; aj Hypertension; - PSHx: 20:17 Hysterectomy; intestinal cancer removal; aj - Immunization history:: Adult Immunizations up to date. - Social history:: Smoking status: Patient/guardian denies using tobacco. - Ebola Screening: : Patient negative for fever greater than or equal to 101.5 degrees Fahrenheit, and additional compatible Ebola Virus Disease symptoms Patient denies exposure to infectious person Patient denies travel to an Ebola-affected area in the 21 days before illness onset No symptoms or risks identified at this time. ROS: 21:06 Constitutional: Negative for fever, chills, and weight loss, Eyes: Negative for injury, ps1 pain, redness, and discharge, Cardiovascular: Negative for chest pain, palpitations, and edema, Respiratory: Negative for shortness of breath, cough, wheezing, and pleuritic chest pain, Abdomen/GI: Negative for abdominal pain, nausea, vomiting, diarrhea, and constipation, MS/Extremity: Negative for injury and deformity, Skin: Negative for injury, rash, and discoloration. 21:06 Neuro: Positive for headache. Exam: 21:06 Constitutional: This is a well developed, well nourished patient who is awake, alert, ps1 and in no acute distress. Head/Face: Normocephalic, atraumatic. Eyes: Pupils equal round and reactive to light, extra-ocular motions intact. Lids and lashes normal. Conjunctiva and sclera are non-icteric and not injected. Chest/axilla: Normal chest wall appearance and motion. Nontender with no deformity. No lesions are appreciated. Cardiovascular: Regular rate and rhythm. No gallops, murmurs, or rubs. Normal PMI, no JVD. No pulse deficits. Respiratory: Lungs have equal breath sounds bilaterally, clear to auscultation and percussion. No rales, rhonchi or wheezes noted. No increased work of breathing, no retractions or nasal flaring. Abdomen/GI: Soft, non-tender, with normal bowel sounds. No distension or tympany. No guarding or rebound. No evidence of tenderness throughout. Skin: Warm, dry with normal turgor. Normal color with no rashes, no lesions, and no evidence of cellulitis. MS/ Extremity: Pulses equal, no cyanosis. Neurovascular intact. Full, normal range of motion. Neuro: Awake and alert, GCS 15, oriented to person, place, time, and situation. Cranial nerves II-XII grossly intact. Sensory grossly intact. 21:06 Psych: Behavior/mood is anxious. Vital Signs: 20:17 BP 164 / 96; Pulse 89; Resp 19; Temp 97.3; Pulse Ox 100% on R/A; Weight 63.5 kg; Height aj 5 ft. 2 in. (157.48 cm); 20:33 BP 180 / 102; Pulse 88; Resp 18; Pulse Ox 100% on R/A; Pain 8/10; mg2 21:19 BP 184 / 92; Pulse 56; Pulse Ox 96% on R/A; rv 20:17 Body Mass Index 25.61 (63.50 kg, 157.48 cm) aj MDM: 20:44 Patient medically screened. ps1 21:18 Data reviewed: vital signs, nurses notes, and as a result, I will discharge patient. ps1 Administered Medications: No medications were administered Disposition: 02/21/18 21:17 Discharged to Home. Impression: Uncontrolled Hypertension. - Condition is Stable. - Discharge Instructions: Hypertension. - Medication Reconciliation Form, Thank You Letter, Antibiotic Education, Prescription Opioid Use form. - Follow up: Private Physician; When: As needed; Reason: Recheck today's complaints, Continuance of care, Re-evaluation by your physician. Follow up: Emergency Department; When: As needed; Reason: Worsening of condition. - Problem is an ongoing problem. - Symptoms are unchanged. Signatures: Adelina Tierney RN RN aj Wild Izquierdo MD MD ps1 Salo Barba RN RN rv Corrections: (The following items were deleted from the chart) 21:20 21:17 02/21/2018 21:17 Discharged to Home. Impression: Uncontrolled Hypertension. rv Condition is Stable. Forms are Medication Reconciliation Form, Thank You Letter, Antibiotic Education, Prescription Opioid Use. Follow up: Private Physician; When: As needed; Reason: Recheck today's complaints, Continuance of care, Re-evaluation by your physician. Follow up: Emergency Department; When: As needed; Reason: Worsening of condition. Problem is an ongoing problem. Symptoms are unchanged. ps1
[2018-02-21 21:57] VITALS: TEMP 97.3
[2018-02-21 22:00] VITALS: BP 184/92; O2SAT 96
== END 2018-02-21 21:20 | disposition home or self-care (01) ==
LOC: ER 20:06
DX: I10 Essential (primary) hypertension (principal); E11.9 Type 2 diabetes mellitus without complications; F41.9 Anxiety disorder, unspecified; Z88.0 Allergy status to penicillin; Z88.1 Allergy status to other antibiotic agents; Z88.2 Allergy status to sulfonamides; Z88.5 Allergy status to narcotic agent; Z88.8 Allergy status to other drugs, medicaments and biological substances; Z85.528 Personal history of other malignant neoplasm of kidney; Z91.013 Allergy to seafood; Z91.030 Bee allergy status; Z91.038 Other insect allergy status
CPT/HCPCS: 99283

== ENCOUNTER 2018-04-28 11:57 | Emergency (ER) | payer OTHER ==
--- NOTE | 2018-04-28 13:34 | ER ---
Nurse's Notes [facility] Name: Amber Acosta Age: 72 yrs Sex: Female : 1945 Arrival Date: 04/28/2018 Time: 11:58 Bed 5 Private MD: Diagnosis: Acute stress reaction Presentation: 04/28 11:59 Presenting complaint: EMS states: ANXIETY AFTER DISCUSSING PRISON PLACEMENT WITH bp BROTHER. Transition of care: patient was not received from another setting of care. Onset of symptoms is unknown. Risk Assessment: Do you want to hurt yourself or someone else? Patient reports no desire to harm self or others. Initial Sepsis Screen: Does the patient meet any 2 criteria? HR > 90 bpm. No. Patient's initial sepsis screen is negative. Does the patient have a suspected source of infection? No. Patient's initial sepsis screen is negative. Care prior to arrival: None. 11:59 Method Of Arrival: EMS: [facility] bp 11:59 Acuity: IVETTE 2 bp Triage Assessment: 12:04 General: Appears in no apparent distress. comfortable, Behavior is cooperative, bp appropriate for age, anxious. Pain: Denies pain. Historical: - Allergies: 12:04 Codeine; bp 12:04 Bees; bp 12:04 hydrocodone bitartrate; bp 12:04 Levofloxacin; bp 12:04 METRONIDAZOLE; bp 12:04 PENICILLINS; bp 12:04 SHELLFISH; bp 12:04 sulfamethoxazole; bp 12:04 TRIMETHOPRIM; bp 12:04 Wasps; bp - Home Meds: 12:04 atorvastatin oral oral [Active]; Metoprolol Tartrate Oral 1 tab nightly [Active]; bp Plavix Oral [Active]; - PMHx: 12:04 Anxiety; Depression; Diabetes - NIDDM; High Cholesterol; Hypertension; kidney cancer; bp Migraines; - Immunization history:: Adult Immunizations up to date. - Social history:: Smoking status: unknown. - Ebola Screening: : Patient negative for fever greater than or equal to 101.5 degrees Fahrenheit, and additional compatible Ebola Virus Disease symptoms Patient denies exposure to infectious person Patient denies travel to an Ebola-affected area in the 21 days before illness onset No symptoms or risks identified at this time. Screenin:06 Abuse screen: Denies threats or abuse. Denies injuries from another. Nutritional bp screening: No deficits noted. Tuberculosis screening: No symptoms or risk factors identified. Fall Risk None identified. Assessment: 12:05 General: Appears in no apparent distress. comfortable, Behavior is cooperative, bp appropriate for age, anxious. Pain: Denies pain. Neuro: Level of Consciousness is awake, alert, obeys commands, Oriented to person, place, time, situation, Appropriate for age. Cardiovascular: Rhythm is sinus rhythm. Respiratory: Airway is patent Respiratory effort is even, unlabored, Respiratory pattern is regular, symmetrical. GI: No signs and/or symptoms were reported involving the gastrointestinal system. : No signs and/or symptoms were reported regarding the genitourinary system. EENT: No deficits noted. Derm: No deficits noted. Musculoskeletal: Circulation, motion, and sensation intact. Range of motion: intact in all extremities. 12:54 Reassessment: FAMILY AT B/S. VS STABLE ON MONITOR. bp 13:43 Reassessment: PT D/C HOME AMBULATORY WITH FAMILY, DX WITH ACUTE STRESS REACTION. bp Vital Signs: 12:04 BP 154 / 74; Pulse 110; Resp 24; Temp 99; Pulse Ox 100% ; Weight 63.5 kg; bp 12:53 BP 161 / 94; Pulse 78; Resp 14; Pulse Ox 95% ; bp 13:43 BP 167 / 92; Pulse 77; Resp 15; Pulse Ox 96% ; bp ED Course: 11:58 Patient arrived in ED. bp 12:00 Triage completed. bp 12:01 Ric Shea NP is PHCP. pm1 12:01 Marcos Pink MD is Attending Physician. pm1 12:06 Arm band placed on. bp 12:06 Patient has correct armband on for positive identification. Placed in gown. Bed in low bp position. Call light in reach. Side rails up X2. 12:13 Miguel Gil, MARCI is Primary Nurse. bp 13:43 No provider procedures requiring assistance completed. Patient did not have IV access bp during this emergency room visit. Administered Medications: No medications were administered Outcome: 13:33 Discharge ordered by . pm1 13:44 Discharged to home ambulatory, with family. bp 13:44 Condition: stable 13:44 Discharge instructions given to patient, Instructed on discharge instructions, follow up and referral plans. Demonstrated understanding of instructions, follow-up care. 13:45 Patient left the ED. bp Signatures: Ric Shea NP SUPPLY ANALYST pm1 Miguel Gil, RN RN bp
--- NOTE | 2018-04-28 13:35 | EDPHYS ---
Physician Documentation [facility] Name: Amber Acosta Age: 72 yrs Sex: Female : 1945 Arrival Date: 04/28/2018 Time: 11:58 Bed 5 Private MD: ED Physician Marcos Pink HPI: 04/28 13:33 This 72 yrs old Female presents to ER via EMS with complaints of Anxiety. pm1 13:33 The patient presents to the emergency department with anxiety, over a , pm1 depression, over a . Onset: The symptoms/episode began/occurred just prior to arrival. Past psychiatric history: Prior diagnosis: depression, Anxiety, Psychiatric medications include: clonazepam PRN. Associated signs and symptoms: Pertinent positives; anxiety, depression, Pertinent negatives: abdominal pain, chest pain, delusions, fever, homicidal ideation, nausea, shortness of breath, substance abuse, suicide ideation, vomiting. The patient has experienced similar episodes in the past, several times. Patient has been depressed and grieving over the of her of 40 years for the past three months. She was with her brother at her house when he left without her knowing. She started getting anxious and started to have a panic attack. She is afraid to be alone. Historical: - Allergies: 12:04 Codeine; bp 12:04 Bees; bp 12:04 hydrocodone bitartrate; bp 12:04 Levofloxacin; bp 12:04 METRONIDAZOLE; bp 12:04 PENICILLINS; bp 12:04 SHELLFISH; bp 12:04 sulfamethoxazole; bp 12:04 TRIMETHOPRIM; bp 12:04 Wasps; bp - Home Meds: 12:04 atorvastatin oral oral [Active]; Metoprolol Tartrate Oral 1 tab nightly [Active]; bp Plavix Oral [Active]; - PMHx: 12:04 Anxiety; Depression; Diabetes - NIDDM; High Cholesterol; Hypertension; kidney cancer; bp Migraines; - Immunization history:: Adult Immunizations up to date. - Social history:: Smoking status: unknown. - Ebola Screening: : Patient negative for fever greater than or equal to 101.5 degrees Fahrenheit, and additional compatible Ebola Virus Disease symptoms Patient denies exposure to infectious person Patient denies travel to an Ebola-affected area in the 21 days before illness onset No symptoms or risks identified at this time. ROS: 13:33 Constitutional: Negative for fever, chills, and weight loss, Eyes: Negative for injury, pm1 pain, redness, and discharge, ENT: Negative for injury, pain, and discharge, Neck: Negative for injury, pain, and swelling, Cardiovascular: Negative for chest pain, palpitations, and edema, Respiratory: Negative for shortness of breath, cough, wheezing, and pleuritic chest pain, Abdomen/GI: Negative for abdominal pain, nausea, vomiting, diarrhea, and constipation, Back: Negative for injury and pain, : Negative for injury, bleeding, discharge, and swelling, MS/Extremity: Negative for injury and deformity, Skin: Negative for injury, rash, and discoloration, Neuro: Negative for headache, weakness, numbness, tingling, and seizure. 13:33 Psych: Positive for anxiety, depression, Negative for drug dependence, alcohol dependence, auditory hallucinations, visual hallucinations, homicidal ideation, suicide gesture, suicidal ideation. Exam: 13:33 Constitutional: This is a well developed, well nourished patient who is awake, alert, pm1 and in no acute distress. Head/Face: Normocephalic, atraumatic. Eyes: Pupils equal round and reactive to light, extra-ocular motions intact. Lids and lashes normal. Conjunctiva and sclera are non-icteric and not injected. Cornea within normal limits. Periorbital areas with no swelling, redness, or edema. ENT: Nares patent. No nasal discharge, no septal abnormalities noted. Tympanic membranes are normal and external auditory canals are clear. Oropharynx with no redness, swelling, or masses, exudates, or evidence of obstruction, uvula midline. Mucous membranes moist. Neck: Trachea midline, no thyromegaly or masses palpated, and no cervical lymphadenopathy. Supple, full range of motion without nuchal rigidity, or vertebral point tenderness. No Meningismus. Chest/axilla: Normal chest wall appearance and motion. Nontender with no deformity. No lesions are appreciated. Cardiovascular: Regular rate and rhythm with a normal S1 and S2. No gallops, murmurs, or rubs. Normal PMI, no JVD. No pulse deficits. Respiratory: Lungs have equal breath sounds bilaterally, clear to auscultation and percussion. No rales, rhonchi or wheezes noted. No increased work of breathing, no retractions or nasal flaring. Abdomen/GI: Soft, non-tender, with normal bowel sounds. No distension or tympany. No guarding or rebound. No evidence of tenderness throughout. Back: No spinal tenderness. No costovertebral tenderness. Full range of motion. Skin: Warm, dry with normal turgor. Normal color with no rashes, no lesions, and no evidence of cellulitis. MS/ Extremity: Pulses equal, no cyanosis. Neurovascular intact. Full, normal range of motion. 13:33 Neuro: Orientation: is normal, Mentation: is normal, Motor: is normal, moves all fours, Sensation: is normal, no obvious gross deficits. 13:33 Psych: Behavior/mood is depressed, Affect is calm, Patient has no thoughts/intents to harm self or others. Vital Signs: 12:04 BP 154 / 74; Pulse 110; Resp 24; Temp 99; Pulse Ox 100% ; Weight 63.5 kg; bp 12:53 BP 161 / 94; Pulse 78; Resp 14; Pulse Ox 95% ; bp 13:43 BP 167 / 92; Pulse 77; Resp 15; Pulse Ox 96% ; bp MDM: 12:01 Patient medically screened. pm1 13:33 Data reviewed: vital signs. Data interpreted: Pulse oximetry: on room air is 95 %. pm1 Interpretation: normal. Counseling: I had a detailed discussion with the patient and/or guardian regarding: the historical points, exam findings, and any diagnostic results supporting the discharge/admit diagnosis, the need for outpatient follow up, a family practitioner, to return to the emergency department if symptoms worsen or persist or if there are any questions or concerns that arise at home. 13:33 Refusal of service: The patient/guardian displays adequate decision making capability pm1 and despite a detailed discussion of alternatives, benefits, risks, and consequences refuses: all lab tests, ECG or chest X-ray. Patient wants to go home now. She feels calm now with the presence of her brother and friend. Administered Medications: No medications were administered Disposition: 04/29 07:11 Co-signature as Attending Physician, Marcos Pink MD I agree with the assessment and bi plan of care. Disposition: 04/28/18 13:33 Discharged to Home. Impression: Acute stress reaction. - Condition is Stable. - Discharge Instructions: Panic Attacks, Stress and Stress Management. - Medication Reconciliation Form, Thank You Letter form. - Follow up: Emergency Department; When: As needed; Reason: Worsening of condition. Follow up: Private Physician; When: 2 - 3 days; Reason: Recheck today's complaints, Continuance of care, Re-evaluation by your physician. - Problem is new. - Symptoms have improved. Signatures: Marcos Pink MD MD cha Marinas, Patrick MOLD HOISTER MOLD HOISTER pm1 Miguel Gil RN RN bp Corrections: (The following items were deleted from the chart) 04/28 13:45 13:33 04/28/2018 13:33 Discharged to Home. Impression: Acute stress reaction. Condition bp is Stable. Forms are Medication Reconciliation Form, Thank You Letter, Antibiotic Education, Prescription Opioid Use. Follow up: Emergency Department; When: As needed; Reason: Worsening of condition. Follow up: Private Physician; When: 2 - 3 days; Reason: Recheck today's complaints, Continuance of care, Re-evaluation by your physician. Problem is new. Symptoms have improved. pm1
[2018-04-28 14:05] VITALS: TEMP 99
[2018-04-28 14:08] VITALS: BP 167/92; O2SAT 96
== END 2018-04-28 13:45 | disposition home or self-care (01) ==
LOC: ER 11:57
DX: F43.0 Acute stress reaction (principal); F41.9 Anxiety disorder, unspecified; F32.9 Major depressive disorder, single episode, unspecified; E11.9 Type 2 diabetes mellitus without complications; E78.00 Pure hypercholesterolemia, unspecified; I10 Essential (primary) hypertension; Z79.02 Long term (current) use of antithrombotics/antiplatelets; Z79.899 Other long term (current) drug therapy; Z85.528 Personal history of other malignant neoplasm of kidney
CPT/HCPCS: 99284

== ENCOUNTER 2018-07-23 08:23 | Observation (INO) | payer OTHER ==
[2018-07-23 09:29] LABS: Protime INR 0.87
[2018-07-23 09:39] LABS: ALT/SGPT 15 U/L (12-78); AST/SGOT 15 U/L (15-37); Albumin 3.4 g/dL (3.4-5.0); Alkaline Phosphatase 64 U/L (45-117); BUN Blood Urea Nitrogen 14 mg/dL (7-18); Bicarbonate 28 mmol/L (21-32); Bilirubin Direct 0.1 mg/dL (0-0.2); Bilirubin Total 0.4 mg/dL (0.2-1.0); Glucose Level 91 mg/dL (74-106); Lipase 84 U/L (73-393); Magnesium 2.3 mg/dL (1.8-2.4); NT PRO-BNP 150 pg/mL (<125); Potassium 3.8 mmol/L (3.5-5.1); Protein, Total 6.8 g/dL (6.4-8.2); Sodium Level 143 mmol/L (136-145); Troponin (Emerg Dept Use Only) < 0.02 ng/mL (0.0-0.045)
[2018-07-23] MEDS ORDERED: NA CHLORIDE 0.9% 500 ML ONE (09:40)
[2018-07-23] MEDS ORDERED: NA CHLORIDE 0.9% 1,000 ML ONE (09:40)
[2018-07-23 10:26] LABS: Absolute Lymphocytes (CBC) 1.9 K/uL (0.7-4.9); Absolute Monocytes 1.7 K/uL (0.1-1.3); Absolute Neutrophil 10.1 K/uL (1.8-8.0); Basophils % 0.6 % (0-1.3); Eosinophils % 1.8 % (0-4.4); Hematocrit 43.3 % (36.0-45.0); Lymphocytes % 13.7 % (15.3-44.8); MPV 10.7 fL (7.6-11.3); Monocytes % 11.9 % (3.3-12.3)
--- NOTE | 2018-07-23 11:30 | RAD REPORT ---
EXAM DESCRIPTION: CT - Abdomen Pelvis Wo Contrast - 07/23/2018 11:19 am CLINICAL HISTORY: Abdominal pain. ABD PAIN COMPARISON: [facility] Protocol dated 08/13/2017 TECHNIQUE: CT imaging of the abdomen and pelvis was performed without contrast. Solid organ, bowel a nd vascular assessment is limited due to lack of IV and oral contrast. All CT scans are performed using dose optimization technique as appropriate and may include automated exposure control or mA/KV adjustment according to patient size. FINDINGS: The lower lung quesada are clear.Cholecystectomy clips. The liver, spleen, pancreas, adrenal glands and right kidney are within normal limits for a limited n on-contrast examination.Postsurgical changes involve the inferior aspect of the left kidney. There is moderate to severe pericolonic inflammatory changes noted involving the distal sigmoid colon / rectum in the pelvis. Numerous diverticular present in this region as well. No focal fluid collecti on to signify the presence of an abscess. No bowel obstruction or free air. The appendix is normal. The osseous structures are within normal limits.Mild lower lumbar degenerative changes. IMPRESSION: Significant colonic inflammatory changes are present involving the distal sigmoid colon and rectum. Most likely, this represents acute diverticulitis without abscess. After appropriate anne-marie tment, consider colonoscopy followup assessment. A limited non-contrast examination was performed as detailed.
[2018-07-23 11:34] LABS: Blood Morphology Comment NOT SEEN (NOT SEEN); Platelet Estimate ADEQ; Urine White Blood Cell Casts OK
--- NOTE | 2018-07-23 11:42 | RAD REPORT ---
EXAM DESCRIPTION: Kym Single View07/23/2018 9:20 am CLINICAL HISTORY: Abdominal pain COMPARISON: July 2017 FINDINGS: The lungs appear clear of acute infiltrate. The heart is normal size IMPRESSION: No acute abnormalities displayed
--- NOTE | 2018-07-23 11:51 | ER ---
Nurse's Notes [facility] Name: Amber Acosta Age: 72 yrs Sex: Female : 1945 Arrival Date: 07/23/2018 Time: 08:25 Bed 15 Private MD: Diagnosis: Abdominal tenderness;Elevated white blood cell count;Left sided colitis;Diverticular disease of intestine;Diverticulitis of large intestine without perforation or abscess without bleeding;Type 2 diabetes mellitus Presentation: 07/23 08:28 Presenting complaint: Patient states: i am having abdominal pain that started 2 days tw2 ago, i was taking out the trash and i just got worse, i have been nauseous, no vomiting. Transition of care: patient was not received from another setting of care. Onset of symptoms was July 23, 2018. Risk Assessment: Do you want to hurt yourself or someone else? Patient reports no desire to harm self or others. Initial Sepsis Screen: Does the patient meet any 2 criteria? No. Patient's initial sepsis screen is negative. Does the patient have a suspected source of infection? No. Patient's initial sepsis screen is negative. Care prior to arrival: None. 08:28 Method Of Arrival: Wheelchair tw2 08:28 Acuity: IVETTE 3 tw2 08:29 Note pt reports "my just before [place] and i am just not myself tw2 anymore". Triage Assessment: 08:29 General: Appears in no apparent distress. Behavior is cooperative, appropriate for age. tw2 Pain: Complains of pain in abdomen. GI: Reports nausea, Patient currently denies vomiting. Historical: - Allergies: 08:30 Bees; tw2 08:30 Codeine; tw2 08:30 hydrocodone bitartrate; tw2 08:30 Levofloxacin; tw2 08:30 METRONIDAZOLE; tw2 08:30 PENICILLINS; tw2 08:30 SHELLFISH; tw2 08:30 sulfamethoxazole; tw2 08:30 TRIMETHOPRIM; tw2 08:30 Wasps; tw2 08:30 Demerol; tw2 - Home Meds: 08:35 atorvastatin Oral [Active]; Metoprolol Tartrate Oral 1 tab nightly [Active]; Plavix rb1 Oral [Active]; - PMHx: 08:30 Anxiety; Depression; Diabetes - NIDDM; High Cholesterol; Hypertension; kidney cancer; tw2 Migraines; - PSHx: 08:35 Knee surgery; Hysterectomy; rb1 - Immunization history:: Adult Immunizations. - Social history:: Smoking status: . - Ebola Screening: : Patient denies travel to an Ebola-affected area in the 21 days before illness onset. - Family history:: not pertinent. Screenin:35 Abuse screen: Denies threats or abuse. Nutritional screening: No deficits noted. rb1 Tuberculosis screening: No symptoms or risk factors identified. Fall Risk None identified. Assessment: 08:35 General: Appears uncomfortable, Behavior is calm, cooperative. General: Denies fever, rb1 chills. Pain: Complains of pain in abdomen Pain currently is 8 out of 10 on a pain scale. Pain began x 2 days. Neuro: Level of Consciousness is awake, alert, obeys commands, Oriented to person, place, time, situation. Cardiovascular: Capillary refill < 3 seconds is brisk in bilateral fingers. Respiratory: Airway is patent Respiratory effort is even, unlabored, Respiratory pattern is regular, symmetrical. GI: Bowel sounds present X 4 quads. Abd is soft Abdomen is tender to palpation X 4 quads. Parent/caregiver reports the patient having Pain with bowel movements; no blood is present. : No signs and/or symptoms were reported regarding the genitourinary system. Derm: Skin is pink, warm \\T\\ dry. 09:30 Reassessment: Patient appears in no apparent distress at this time. No changes from rb1 previously documented assessment. 10:18 Reassessment: Patient appears in no apparent distress at this time. Patient and/or rb1 family updated on plan of care and expected duration. Pain level reassessed. Patient is alert, oriented x 3, equal unlabored respirations, skin warm/dry/pink. 11:10 Reassessment: Patient appears in no apparent distress at this time. No changes from rb1 previously documented assessment. Pt. is going to CT. 11:29 Reassessment: I educated the pt. on why she needed IV access and she agreed to it. rb1 11:44 Reassessment: Patient appears in no apparent distress at this time. Patient and/or rb1 family updated on plan of care and expected duration. Pain level reassessed. Patient is alert, oriented x 3, equal unlabored respirations, skin warm/dry/pink. Informed Dr. Pink that we needed an EJ inserted due to the pt. being a hard stick. He verbalized understanding. 12:05 Reassessment: Reminded Dr. Pink that we still need him to insert an EJ so we have rb1 IV access. 12:20 Reassessment: Dr. Pink is at bedside inserting an IV in the EJ. rb1 12:40 Reassessment: Patient appears in no apparent distress at this time. No changes from rb1 previously documented assessment. Informed the pt. that she would be getting admitted. I left a voice mail for DEANA, the pt. sister, at [phone]. 13:30 Reassessment: Patient appears in no apparent distress at this time. Patient and/or rb1 family updated on plan of care and expected duration. Pain level reassessed. Patient is alert, oriented x 3, equal unlabored respirations, skin warm/dry/pink. Pt. c/o pain while ambulating. 14:07 Reassessment: Tried to call report to MARCI Day, I was told that she was at lunch and rb1 would call me back. 14:30 Reassessment: Patient appears in no apparent distress at this time. Patient and/or rb1 family updated on plan of care and expected duration. Pain level reassessed. Patient is alert, oriented x 3, equal unlabored respirations, skin warm/dry/pink. 14:38 Reassessment: Called report to MARCI Day. Information from the SB[facility] was given. All rb1 questions asked and answered. Vital Signs: 08:29 BP 108 / 9; Pulse 76; Resp 17; Temp 97.8(TE); Pulse Ox 98% on R/A; Weight 58.97 kg (R); tw2 Height 5 ft. 2 in. (157.48 cm); Pain 8/10; 09:40 BP 132 / 85; Pulse 72; Resp 17; Pulse Ox 100% on R/A; rb1 10:20 BP 147 / 83; Pulse 63; Resp 17; Pulse Ox 97% on R/A; rb1 11:19 rb1 11:30 BP 137 / 81; Pulse 64; Resp 16; Pulse Ox 98% on R/A; Pain 5/10; rb1 12:30 BP 150 / 78; Pulse 67; Resp 18; Pulse Ox 98% on R/A; rb1 13:30 BP 139 / 85; Pulse 70; Resp 21; Pulse Ox 98% on R/A; rb1 14:30 BP 143 / 82; Pulse 66; Resp 17; Pulse Ox 100% on R/A; rb1 08:29 Body Mass Index 23.78 (58.97 kg, 157.48 cm) tw2 11:[address] rb1 ED Course: 08:25 Patient arrived in ED. mr 08:29 Triage completed. tw2 08:29 Arm band placed on. tw2 08:33 Liliane Appiah, RN is Primary Nurse. rb1 08:35 Patient has correct armband on for positive identification. Bed in low position. Call rb1 light in reach. Side rails up X 1. Pulse ox on. NIBP on. Warm blanket given. 08:39 Marcos Pink MD is Attending Physician. [facility] 09:12 Initial lab(s) drawn, by ny, sent to lab. Missed attempt(s): 20 gauge in right em1 antecubital area. Bleeding controlled, band aid applied, catheter tip intact. 09:21 XRAY Chest (1 view) In Process Unspecified. EDMS 09:21 X-ray completed. Portable x-ray completed in exam room. jr1 10:00 Missed attempt(s): 22 gauge in left forearm. IV insertion attempted by MARCI Maldonado. rb1 10:04 EKG done, by golf technician. reviewed by Marcos Pink MD. dt2 10:05 Missed attempt(s): 22 gauge in right antecubital area. IV insertion was done by prasanna Maldonado RN.. IV discontinued, intact, bleeding controlled, Pressure dressing applied, Pt. reported that the IV was hurting. Small infiltrate was noted to the right AC. 10:10 Inserted saline lock: 22 gauge in right antecubital area, using aseptic technique. rb1 ,using aseptic technique. IV inserted by KLAUDIA Alves. 11:15 CT completed. Patient tolerated procedure well. Patient moved to CT via stretcher. [email or web address] Patient moved back from CT. 11:16 CT Abd/Pelvis - Without Cont: oral only In Process Unspecified. EDMS 11:49 Fela Jiménez MD is Hospitalizing Provider. bi 12:25 Inserted saline lock: 18 gauge in left EJ, using aseptic technique. ,using aseptic rb1 technique. Inserted by Dr. Pink. 15:00 No provider procedures requiring assistance completed. Patient admitted, IV remains in rb1 place. Administered Medications: 10:10 Drug: NS 0.9% 500 ml Route: IV; Rate: bolus; Site: right antecubital; rb1 10:40 Follow up: IV Status: Completed infusion rb1 11:20 Drug: Rocephin - (cefTRIAXone) 1 grams Route: IVPB; Infused Over: 30 mins; Site: left rb1 jugular; 11:50 Follow up: Response: No adverse reaction; IV Status: Completed infusion rb1 12:25 Drug: NS 0.9% 1000 ml Route: IV; Rate: 125 ml/hr; Site: left jugular; rb1 15:00 Follow up: IV Status: Infusion continued upon admission rb1 14:00 Drug: Clindamycin 300 mg Route: IVPB; Infused Over: 30 mins; Site: left jugular; rb1 14:36 Follow up: Response: No adverse reaction; IV Status: Completed infusion rb1 Outcome: 11:50 Decision to Hospitalize by Provider. [facility] 15:00 Admitted to Med/surg accompanied by tech, via wheelchair, room 208, with chart, Report rb1 called to MARCI Day 15:00 Condition: stable 15:00 Instructed on the need for admit. 15:01 Patient left the ED. rb1 Signatures: Dispatcher [employer] EDMS Marcos Pink MD MD cha Rivera, Reshma mr Mariana, Lilia jr1 Walter Rivera em1 Liliane Appiah, RN RN rb1 Shakira Dent RN RN tw2 Connie Haddad2 Charla [id number] Corrections: (The following items were deleted from the chart) 19:40 15:01 Patient left the ED. rb1 rb1
--- NOTE | 2018-07-23 11:52 | EDPHYS ---
Physician Documentation [facility] Name: Amber Acosta Age: 72 yrs Sex: Female : 1945 Arrival Date: 07/23/2018 Time: 08:25 Bed 15 Private MD: ED Physician Marcos Pink HPI: 07/23 08:53 This 72 yrs old Female presents to ER via Wheelchair with complaints of bi Abdominal Pain. 08:53 The patient presents with abdominal pain in the lower abdomen, in the left lower bi quadrant. Onset: The symptoms/episode began/occurred 2 day(s) ago. Onset: The symptoms/episode began/occurred acutely. Onset: The symptoms/episode began/occurred 2 day(s) ago. The symptoms do not radiate. Associated signs and symptoms: none. The symptoms are described as crampy, dull. Modifying factors: The symptoms are alleviated by nothing, the symptoms are aggravated by nothing. Severity of pain: At its worst the pain was mild in the emergency department the pain is unchanged. The patient has not experienced similar symptoms in the past. Historical: - Allergies: 08:30 Bees; tw2 08:30 Codeine; tw2 08:30 hydrocodone bitartrate; tw2 08:30 Levofloxacin; tw2 08:30 METRONIDAZOLE; tw2 08:30 PENICILLINS; tw2 08:30 SHELLFISH; tw2 08:30 sulfamethoxazole; tw2 08:30 TRIMETHOPRIM; tw2 08:30 Wasps; tw2 08:30 Demerol; tw2 - Home Meds: 08:35 atorvastatin Oral [Active]; Metoprolol Tartrate Oral 1 tab nightly [Active]; Plavix rb1 Oral [Active]; - PMHx: 08:30 Anxiety; Depression; Diabetes - NIDDM; High Cholesterol; Hypertension; kidney cancer; tw2 Migraines; - PSHx: 08:35 Knee surgery; Hysterectomy; rb1 - Immunization history:: Adult Immunizations. - Social history:: Smoking status: . - Ebola Screening: : Patient denies travel to an Ebola-affected area in the 21 days before illness onset. - Family history:: not pertinent. ROS: 08:53 Constitutional: Negative for fever, chills, and weight loss, Eyes: Negative for injury, bi pain, redness, and discharge, ENT: Negative for injury, pain, and discharge, Neck: Negative for injury, pain, and swelling, Cardiovascular: Negative for chest pain, palpitations, and edema, Respiratory: Negative for shortness of breath, cough, wheezing, and pleuritic chest pain, Back: Negative for injury and pain, : Negative for injury, bleeding, discharge, and swelling, MS/Extremity: Negative for injury and deformity, Skin: Negative for injury, rash, and discoloration, Neuro: Negative for headache, weakness, numbness, tingling, and seizure, Psych: Negative for depression, anxiety, suicide ideation, homicidal ideation, and hallucinations, Allergy/Immunology: Negative for hives, rash, and allergies, Endocrine: Negative for neck swelling, polydipsia, polyuria, polyphagia, and marked weight changes, Hematologic/Lymphatic: Negative for swollen nodes, abnormal bleeding, and unusual bruising. 08:53 Abdomen/GI: Positive for abdominal pain, of the left lower quadrant. Exam: 08:53 Constitutional: This is a well developed, well nourished patient who is awake, alert, bi and in no acute distress. Head/Face: Normocephalic, atraumatic. Eyes: Pupils equal round and reactive to light, extra-ocular motions intact. Lids and lashes normal. Conjunctiva and sclera are non-icteric and not injected. Cornea within normal limits. Periorbital areas with no swelling, redness, or edema. ENT: Nares patent. No nasal discharge, no septal abnormalities noted. Tympanic membranes are normal and external auditory canals are clear. Oropharynx with no redness, swelling, or masses, exudates, or evidence of obstruction, uvula midline. Mucous membranes moist. Neck: Trachea midline, no thyromegaly or masses palpated, and no cervical lymphadenopathy. Supple, full range of motion without nuchal rigidity, or vertebral point tenderness. No Meningismus. Chest/axilla: Normal chest wall appearance and motion. Nontender with no deformity. No lesions are appreciated. Cardiovascular: Regular rate and rhythm with a normal S1 and S2. No gallops, murmurs, or rubs. Normal PMI, no JVD. No pulse deficits. Respiratory: Lungs have equal breath sounds bilaterally, clear to auscultation and percussion. No rales, rhonchi or wheezes noted. No increased work of breathing, no retractions or nasal flaring. Back: No spinal tenderness. No costovertebral tenderness. Full range of motion. Female : Normal external genitalia. Skin: Warm, dry with normal turgor. Normal color with no rashes, no lesions, and no evidence of cellulitis. MS/ Extremity: Pulses equal, no cyanosis. Neurovascular intact. Full, normal range of motion. Neuro: Awake and alert, GCS 15, oriented to person, place, time, and situation. Cranial nerves II-XII grossly intact. Motor strength 5/5 in all extremities. Sensory grossly intact. Cerebellar exam normal. Normal gait. Psych: Awake, alert, with orientation to person, place and time. Behavior, mood, and affect are within normal limits. 08:53 Abdomen/GI: Inspection: abdomen appears normal, Bowel sounds: normal, Palpation: mild abdominal tenderness, in the left lower quadrant, Liver: no appreciated palpable abnormalities, Hernia: not appreciated. Vital Signs: 08:29 BP 108 / 9; Pulse 76; Resp 17; Temp 97.8(TE); Pulse Ox 98% on R/A; Weight 58.97 kg (R); tw2 Height 5 ft. 2 in. (157.48 cm); Pain 8/10; 09:40 BP 132 / 85; Pulse 72; Resp 17; Pulse Ox 100% on R/A; rb1 10:20 BP 147 / 83; Pulse 63; Resp 17; Pulse Ox 97% on R/A; rb1 11:19 rb1 11:30 BP 137 / 81; Pulse 64; Resp 16; Pulse Ox 98% on R/A; Pain 5/10; rb1 12:30 BP 150 / 78; Pulse 67; Resp 18; Pulse Ox 98% on R/A; rb1 13:30 BP 139 / 85; Pulse 70; Resp 21; Pulse Ox 98% on R/A; rb1 14:30 BP 143 / 82; Pulse 66; Resp 17; Pulse Ox 100% on R/A; rb1 08:29 Body Mass Index 23.78 (58.97 kg, 157.48 cm) tw2 11:[address] rb1 Procedures: 12:20 Peripheral line: by aseptic technique a peripheral line was placed in the left external bi jugular vein. MDM: 08:39 Patient medically screened. [facility] 08:53 Data reviewed: vital signs, nurses notes, lab test result(s), EKG, radiologic studies, [facility] CT scan, plain films. 07/23 08:52 Order name: Basic Metabolic Panel; Complete Time: 10:16 [facility] 07/23 08:52 Order name: CBC with Diff; Complete Time: 11:44 [facility] 07/23 08:52 Order name: LFT's; Complete Time: 10:16 [facility] 07/23 08:52 Order name: Magnesium; Complete Time: 10:16 [facility] 07/23 08:52 Order name: NT PRO-BNP; Complete Time: 10:16 [facility] 07/23 08:52 Order name: PT-INR; Complete Time: 10:16 [facility] 07/23 08:52 Order name: Troponin (emerg Dept Use Only); Complete Time: 10:16 [facility] 07/23 08:52 Order name: XRAY Chest (1 view); Complete Time: 11:44 [facility] 07/23 08:52 Order name: Lipase; Complete Time: 10:16 [facility] 07/23 08:52 Order name: Urine Culture [facility] 07/23 10:28 Order name: CBC Smear Scan; Complete Time: 11:44 [facility] 07/23 10:53 Order name: Urine Dipstick--Ancillary (enter results) em 07/23 11:48 Order name: Stool Culture [facility] 07/23 11:48 Order name: CDIFF [facility] 07/23 08:52 Order name: EKG; Complete Time: 08:53 [facility] 07/23 08:52 Order name: Cardiac monitoring; Complete Time: 10:17 [facility] 07/23 08:52 Order name: EKG - Nurse/Tech; Complete Time: 10:17 [facility] 07/23 08:52 Order name: IV Saline Lock; Complete Time: 10:17 [facility] 07/23 08:52 Order name: Labs collected and sent; Complete Time: 09:12 [facility] 07/23 08:52 Order name: O2 Per Protocol; Complete Time: 10:18 [facility] 07/23 08:52 Order name: O2 Sat Monitoring; Complete Time: 10:18 [facility] 07/23 08:52 Order name: CT Abd/Pelvis - Without Cont: oral only; Complete Time: 11:44 [facility] 07/23 08:52 Order name: Urine Dipstick-Ancillary (obtain specimen); Complete Time: 10:52 [facility] 07/23 09:33 Order name: Labs - recollect needed; Complete Time: 10:17 bd Administered Medications: 10:10 Drug: NS 0.9% 500 ml Route: IV; Rate: bolus; Site: right antecubital; rb1 10:40 Follow up: IV Status: Completed infusion rb1 11:20 Drug: Rocephin - (cefTRIAXone) 1 grams Route: IVPB; Infused Over: 30 mins; Site: left rb1 jugular; 11:50 Follow up: Response: No adverse reaction; IV Status: Completed infusion rb1 12:25 Drug: NS 0.9% 1000 ml Route: IV; Rate: 125 ml/hr; Site: left jugular; rb1 15:00 Follow up: IV Status: Infusion continued upon admission rb1 14:00 Drug: Clindamycin 300 mg Route: IVPB; Infused Over: 30 mins; Site: left jugular; rb1 14:36 Follow up: Response: No adverse reaction; IV Status: Completed infusion rb1 Disposition: 07/23/18 11:50 Hospitalization ordered by Fela Jiménez for Inpatient Admission. Preliminary diagnosis are Abdominal tenderness, Elevated white blood cell count, Left sided colitis, Diverticular disease of intestine, Diverticulitis of large intestine without perforation or abscess without bleeding, Type 2 diabetes mellitus. - Bed requested for Telemetry/MedSurg (Inpatient). - Status is Inpatient Admission. rb1 - Condition is Stable. - Problem is new. - Symptoms have improved. UTI on Admission? No Signatures: Dispatcher [employer] EDMS Serina Lofton Diana, RN RN dw Anderson, Corey, MD MD cha Barber, Rebecca, MARCI COVARRUBIAS rb1 Shakira Dent RN RN tw2 Corrections: (The following items were deleted from the chart) 13:13 11:50 Hospitalization Ordered by Fela Jiménez MD for Inpatient Admission. Preliminary diagnosis is Abdominal tenderness; Elevated white blood cell count; Left sided colitis; Diverticular disease of intestine; Diverticulitis of large intestine without perforation or abscess without bleeding; Type 2 diabetes mellitus. Bed requested for Telemetry/MedSurg (Inpatient). Status is Inpatient Admission. Condition is Stable. Problem is new. Symptoms have improved. UTI on Admission? No. bi 15:01 13:13 07/23/2018 11:50 Hospitalization Ordered by Fela Jiménez MD for Inpatient rb1 Admission. Preliminary diagnosis is Abdominal tenderness; Elevated white blood cell count; Left sided colitis; Diverticular disease of intestine; Diverticulitis of large intestine without perforation or abscess without bleeding; Type 2 diabetes mellitus. Bed requested for Telemetry/MedSurg (Inpatient). Status is Inpatient Admission. Condition is Stable. Problem is new. Symptoms have improved. UTI on Admission? No. dw
[2018-07-23] MEDS ORDERED: CEFTRIAXONE 1 GM/NS 50 ML 1 GM/50 ML BAG IV ONE (12:48)
[2018-07-23] MEDS ORDERED: CEFTRIAXONE/SWI 1gm 1 GM/10 ML SYR ONE (12:59)
[2018-07-23] MEDS ORDERED: CLINDAMYCIN INJ 300 MG in NA CHLORIDE 0.9% 50 ML IV ONE (13:00)
[2018-07-23] MEDS ORDERED: ONDANSETRON 4 MG/2 ML VIAL IV PRN ×2 (13:02→17:38)
[2018-07-23 13:16] LABS: Urine Blood NEGATIVE (NEG); Urine Glucose NEGATIVE (NEG); Urine Protein NEGATIVE (NEG); Urine Specific Gravity 1.015 (1.005-1.030)
[2018-07-23] MEDS ORDERED: D5 0.45 NS 1,000 ML IV SCH (14:00)
[2018-07-23 15:48] VITALS: BMI 22.8
[2018-07-23] MEDS ORDERED: PNEUMOCOCCAL VACCINE 0.5 ML IMVAC ONE (17:00)
[2018-07-23] MEDS ORDERED: GLUCAGON 1 MG/VIAL IM PRN (17:42)
[2018-07-23] MEDS ORDERED: D50W 25 GM/50 ML SYRINGE IV PRN (17:42)
[2018-07-23] MEDS: NA CHLORIDE 0.9% 1,000 ML IV SCH (17:56)
[2018-07-23] MEDS: ENOXAPARIN 40 MG/0.4 ML SQ SCH (17:57)
[2018-07-23] MEDS: METOPROLOL XL 100 MG TAB PO SCH (18:21)
[2018-07-23 20:45] LABS: Urine Appearance CLEAR; Urine Bilirubin NEGATIVE (NEG); Urine Blood NEGATIVE (NEG); Urine Color YELLOW; Urine Glucose NEGATIVE (NEG); Urine Protein NEGATIVE (NEG); Urine Urobilinogen 0.2 mg/dL (0.2-1.0)
[2018-07-23] MEDS ORDERED: KETOROLAC 30 MG/ML INJ IV PRN (20:46)
[2018-07-23] MEDS ORDERED: ATORVASTATIN 20 MG TAB PO SCH (21:00)
[2018-07-23] MEDS ORDERED: INSULIN -REGULAR HUMAN 50 UNIT/0.5 ML ML SQ SCH (21:00)
[2018-07-23 21:15] LABS: Urine Microscopic Reflex NO UMIC
[2018-07-24] MEDS: NA CHLORIDE 0.9% 1,000 ML IV SCH ×2 (03:42→14:00)
[2018-07-24] MEDS ORDERED: TRAMADOL HCL 50 MG TAB PO PRN (03:48)
--- NOTE | 2018-07-24 05:10 | HP ---
Date of Admission: 07/23/2018 Chief Complaint: Abdominal pain with generalized body ache. History Of Present Illness: A 72-year-old woman with past medical history of diabetes, hypertension, hyperlipidemia, presented to the emergency room with abdominal pain in the lower abdomen that starte d 2 days ago, associated with generalized body ache and generalized weakness. Denied nausea, vomitin g, or diarrhea. In the emergency room, abdominal CT was done, which showed sigmoid colon diverticuli tis without perforation or abscess. Allergies: PATIENT HAS ALLERGIES TO: 1.SULFAMETHOXAZOLE. 2.TRIMETHOPRIM. 3.CODEINE. 4.METRONIDAZOLE. 5.PENICILLIN. 6.LEVOFLOXACIN. 7.PEAS AND SHELLFISH. Past Medical History: As above. Past Surgical History: Hysterectomy, surgery for removal of tumor on the top of her kidney. Family History: Nonsignificant. Social History: Patient denies smoking, drinking, or alcohol use. Review of Systems: Ten points ROS is otherwise unremarkable. Physical Examination: Vital Signs: Blood pressure of 149/83, pulse rate of 83, and respiratory rate of 18, temperature of 99.3, and O2 saturation of 99% on room air. General: The patient is awake, alert, and oriented x3, not in acute distress. HEENT: Normocephalic, atraumatic. PERRLA. Neck: Supple. No JVD, lymph nodes. Lungs: Bilateral air entry. No wheezing or crackles. Heart: Normal heart sounds. Normal S1, S2. No murmurs. Abdomen: Soft with generalized lower abdominal tenderness. No rigidity. Extremities: No edema, cyanosis, or clubbing. Skin: No rash. Neurological: No focal neurological deficit noted. Laboratory Data: WBC of 14.0, platelets of 151, and hemoglobin of 14.6. Chemistry: Sodium of 143, potassium of 3.8, chloride of 111, and glucose of 91, calcium of 8.4. Lipase of 84. UA was negative for infection. Imaging Data: Abdominal and pelvic CT showed significant colonic inflammatory changes in the distal sigmoid colon and rectum, most likely representing acute diverticulitis without abscess. Assessment: 1.Acute diverticulitis. 2.Hypertension. 3.Diabetes. Plan: 1.Admit to inpatient. 2.Keep n.p.o. 3.IV fluid hydration. 4.We will start on Rocephin (patient tolerated before without any allergic reaction). 5.Advance diet as tolerated. 6.Time management. 7.DVT prophylaxis. 8.Continue metoprolol 100 mg b.i.d. for hypertension. 9.Hold metformin for now. 10.Sliding scale and glucose check. 11.Continue Zocor for hyperlipidemia. 12.DVT prophylaxis with Lovenox. MARC Voice ID: [id number]
[2018-07-24] MEDS: METOPROLOL XL 100 MG TAB PO SCH (05:24)
[2018-07-24] MEDS ORDERED: INSULIN -REGULAR HUMAN 50 UNIT/0.5 ML ML SQ SCH ×2 (06:00→11:30)
[2018-07-24 06:06] LABS: Urine Appearance CLEAR; Urine Bilirubin NEGATIVE (NEG); Urine Blood NEGATIVE (NEG); Urine Color YELLOW; Urine Glucose NEGATIVE (NEG); Urine Protein NEGATIVE (NEG); Urine Specific Gravity <=1.005 (1.005-1.030); Urine Urobilinogen 0.2 mg/dL (0.2-1.0)
[2018-07-24 06:25] LABS: Absolute Lymphocytes (CBC) 1.7 K/uL (0.7-4.9); Absolute Monocytes 1.3 K/uL (0.1-1.3); Absolute Neutrophil 7.3 K/uL (1.8-8.0); Basophils % 0.4 % (0-1.3); Eosinophils % 0.6 % (0-4.4); Hematocrit 41.4 % (36.0-45.0); MPV 10.4 fL (7.6-11.3); Monocytes % 12.9 % (3.3-12.3); RBC Red Blood Cell Count 4.58 M/uL (3.86-4.86)
[2018-07-24 06:49] LABS: Urine Microscopic Reflex NO UMIC
[2018-07-24 07:03] LABS: Potassium 3.7 mmol/L (3.5-5.1); Protein, Total 6.2 g/dL (6.4-8.2)
[2018-07-24] MEDS ORDERED: PANTOPRAZOLE 40MG TABLET PO SCH (07:30)
[2018-07-24] MEDS ORDERED: LORAZEPAM 1 MG TABLET PO PRN (07:48)
[2018-07-24 08:01] LABS: Magnesium 2.2 mg/dL (1.8-2.4); Phosphorus 3.1 mg/dL (2.5-4.9)
[2018-07-24] MEDS: ENOXAPARIN 40 MG/0.4 ML SQ SCH (08:41)
[2018-07-24] MEDS ORDERED: HOME MED 1 EA UNK (Metoprolol Tartrate [Metoprolol Tartrate] 100 MG) PO SCH (09:00)
[2018-07-24] MEDS ORDERED: POTASSIUM CL SA 10 MEQ TAB PO ONE (09:00)
[2018-07-24] MEDS ORDERED: CEFTRIAXONE/SWI 1gm 1 GM/10 ML SYR IVP SCH (09:00)
[2018-07-24] MEDS ORDERED: ENOXAPARIN 40 MG/0.4 ML SQ SCH (09:00)
[2018-07-24] MEDS ORDERED: METRONIDAZOLE 500mg IVPB 500 MG/100 ML BAG IV SCH (09:30)
[2018-07-24 09:58] VITALS: O2SAT 94
[2018-07-24 12:21] VITALS: BP 148/69; TEMP 97.1
--- NOTE | 2018-07-24 15:11 | P.DS ---
Admission Date: 07/23/18 Discharge Date: 07/24/18 Primary Care Provider: Dr. Ngo; GI-Dr. Pereyra Disposition: ROUTINE DISCHARGE Discharge Condition: GOOD Reason for Admission: Left lower quadrant ab. pain Consultations: none Procedures: CT scan: FINDINGS: The lower lung quesada are clear.Cholecystectomy clips. The liver, spleen, pancreas, adrenal glands and right kidney are within normal limits for a limited non-contrast examination.Postsurgical changes involve the inferior aspect of the left kidney. There is moderate to severe pericolonic inflammatory changes noted involving the distal sigmoid colon/ rectum in the pelvis. Numerous diverticular present in this region as well. No focal fluid collection to signify the presence of an abscess. No bowel obstruction or free air. The appendix is normal. The osseous structures are within normal limits.Mild lower lumbar degenerative changes. IMPRESSION: Significant colonic inflammatory changes are present involving the distal sigmoid colon and rectum. Most likely, this represents acute diverticulitis without abscess. Medical problem list: Left lower quadrant abdominal pain secondary to acute distal sigmoid diverticulitis Diabetes mellitus type 2 Hyperlipidemia Insomnia GERD Chronic lumbar pain Anxiety Brief History of Present Illness: 72-year-old female presented emergency room with left lower quadrant abdominal pain. Patient found to have acute diverticulitis. Patient was admitted for treatment. Hospital Course: Patient presents with abdominal pain secondary to acute sigmoid diverticulitis. No abscess was identified. Patient was given IV antibiotic therapy. Patient improved. At discharge she was able tolerate her diet. Patient with multiple allergies. Patient tolerated Cephalosporin and Flagyl. At discharge she will continue with Ceftin 5 mg 1 pill twice daily and Flagyl 500 mg 3 times a day for 7 days. 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 Patient will require colonoscopy in 4-6 weeks to further evaluate. Patient will continue with a low residue GI diet. Patient with diabetes mellitus type 2. Patient will continue with Glucophage 500 mg 1 pill twice daily. Recommend to maintain blood sugars less 140 fasting and less than 200 after meals. Further adjustment can be done by her PCP. Patient with hyperlipidemia. Patient will continue with her medication-Zocor 40 mg daily. Patient with GERD. Patient continue with Prilosec 40 mg twice daily. Patient with chronic lower back pain. Patient will continue with tramadol as needed for pain. Patient with hypertension. Patient will continue with metoprolol 100 mg 1 pill twice daily. Recommend blood pressure to remain less than 150/80. Further adjustment can be done by her PCP. Patient with anxiety and insomnia. Patient will continue with Lunesta 3 mg at bedtime and Ativan 1 mg 1 pill twice daily as needed. Vital Signs/Physical Exam: Temp Pulse Resp BP Pulse Ox 97.1 F 66 16 148/69 H 95 07/24/18 12:00 07/24/18 12:00 07/24/18 12:00 07/24/18 12:00 07/24/18 12:00 General: Alert, In no apparent distress, Oriented x3, Cooperative HEENT: Atraumatic Neck: Supple Respiratory: Clear to auscultation bilaterally, Normal air movement Cardiovascular: Normal pulses, Regular rate/rhythm Gastrointestinal: Normal bowel sounds, Soft and benign, Non-distended, No tenderness, No masses, No rebound, No guarding Musculoskeletal: No erythema, No tenderness, No warmth Integumentary: No tenderness/swelling, No erythema, No warmth, No cyanosis Neurological: Normal speech, Normal strength at 5/5 x4 extr, Normal tone, Normal affect Laboratory Data at Discharge: WBC 10.4 K/uL (4.3-10.9) D 07/24/18 05:39 Hgb 13.8 g/dL (12.0-15.0) 07/24/18 05:39 Hct 41.4 % (36.0-45.0) 07/24/18 05:39 Plt Count 158 K/uL (152-406) 07/24/18 05:39 PT 10.3 SECONDS (9.5-12.5) 07/23/18 09:05 INR 0.87 07/23/18 09:05 Sodium 144 mmol/L (136-145) 07/24/18 05:39 Potassium 3.7 mmol/L (3.5-5.1) 07/24/18 05:39 BUN 7 mg/dL (7-18) 07/24/18 05:39 Creatinine 0.70 mg/dL (0.55-1.3) 07/24/18 05:39 Glucose 93 mg/dL (74-106) 07/24/18 05:39 Phosphorus 3.1 mg/dL (2.5-4.9) 07/24/18 05:39 Magnesium 2.2 mg/dL (1.8-2.4) 07/24/18 05:39 Total Bilirubin 1.0 mg/dL (0.2-1.0) 07/24/18 05:39 AST 12 U/L (15-37) L 07/24/18 05:39 ALT 11 U/L (12-78) L 07/24/18 05:39 Alkaline Phosphatase 54 U/L (45-117) 07/24/18 05:39 Lipase 84 U/L (73-393) 07/23/18 09:05 Home Medications: Eszopiclone [Lunesta] 3 mg PO BEDTIME 07/23/18 Lorazepam [Ativan] 1 mg PO BID 07/23/18 Metformin HCl [Glucophage*] 500 mg PO BID 07/23/18 Metoprolol Tartrate 100 mg PO BID 07/23/18 Omeprazole [Prilosec] 40 mg PO BID PRN 07/23/18 Simvastatin 40 mg PO BEDTIME 07/23/18 Tramadol HCl [Ultram] 50 mg PO BID PRN 07/23/18 Cefuroxime [Ceftin] 500 mg PO BID #28 tab 07/24/18 metroNIDAZOLE [Flagyl] 500 mg PO Q8H #21 tablet 07/24/18 New Medications: Cefuroxime [Ceftin] 500 mg PO BID #28 tab metroNIDAZOLE [Flagyl] 500 mg PO Q8H #21 tablet Patient Discharge Instructions: 1. Patient will follow up with a PCP in 1 week to follow up this hospitalization. 2. Patient presents with abdominal pain secondary to acute sigmoid diverticulitis. No abscess was identified. Patient was given IV antibiotic therapy. Patient improved. At discharge she was able tolerate her diet. Patient with multiple allergies. Patient tolerated Cephalosporin and Flagyl. At discharge she will continue with Ceftin 5 mg 1 pill twice daily and Flagyl 500 mg 3 times a day for 7 days. 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 Patient will require colonoscopy in 4-6 weeks to further evaluate. Patient will continue with a low residue GI diet. 3. Patient with diabetes mellitus type 2. Patient will continue with Glucophage 500 mg 1 pill twice daily. Recommend to maintain blood sugars less 140 fasting and less than 200 after meals. Further adjustment can be done by her PCP. 4. Patient with hyperlipidemia. Patient will continue with her medication-Zocor 40 mg daily. 5. Patient with GERD. Patient continue with Prilosec 40 mg twice daily. 6. Patient with chronic lower back pain. Patient will continue with tramadol as needed for pain. 7. Patient with hypertension. Patient will continue with metoprolol 100 mg 1 pill twice daily. Recommend blood pressure to remain less than 150/80. Further adjustment can be done by her PCP. 8. Patient with anxiety and insomnia. Patient will continue with Lunesta 3 mg at bedtime and Ativan 1 mg 1 pill twice daily as needed. Diet: Low residue GI soft diet Activity: Ad bridget Time spent managing pt's care (in minutes): 55
[2018-07-24] MEDS ORDERED: METOPROLOL XL 50 MG TAB PO SCH (18:00)
[2018-07-24] MEDS ORDERED: ESZOPICLONE 1 MG TAB PO SCH (21:00)
[2018-07-24] MEDS ORDERED: HOME MED 1 EA UNK (Simvastatin [Simvastatin] 40 MG) PO SCH (21:00)
--- NOTE | 2018-07-30 11:10 | EKG ---
Test Date: 2018-07-23 Test Time: 09:56:09 Observation Assistant: MAC MEASUREMENT RESULTS: Intervals: Rate: 63 MS: 160 QRSD: 84 QT: 414 QTc: 423 [place]: P: 43 MS: 160 QRS: 23 T: 43 INTERPRETIVE STATEMENTS: Normal sinus rhythm Normal ECG Compared to ECG 02/19/2018 06:26:22 No significant changes Electronically Signed On 07-23-18 17:01:15 CDT by Hardeep Diamond
== END 2018-07-24 16:00 | disposition home or self-care (01) ==
LOC: ER 08:23 → ERHOLD 12:46 → 2ND 14:43
PROVIDERS: ADMIT Internal Medicine; ATTEND Internal Medicine
DX: K57.32 Diverticulitis of large intestine without perforation or abscess without bleeding (principal); I10 Essential (primary) hypertension; E11.9 Type 2 diabetes mellitus without complications; E78.5 Hyperlipidemia, unspecified; G47.00 Insomnia, unspecified; K21.9 Gastro-esophageal reflux disease without esophagitis; M54.89 Other dorsalgia; F41.9 Anxiety disorder, unspecified; Z88.2 Allergy status to sulfonamides; Z88.6 Allergy status to analgesic agent; Z88.0 Allergy status to penicillin; Z91.013 Allergy to seafood; Z91.018 Allergy to other foods; Z88.8 Allergy status to other drugs, medicaments and biological substances
CPT/HCPCS: 96365; 96367; 96361; 93005; 87088; 85025 ×2; 87086; 80048; 36415; 83735 ×2; 84100; 85610; 82962 ×3; 80076; 81003 ×3; 84484; 83690; 80053; 83880; 74176; 71045; 99285; J1650 ×2; J0696 ×2; J7030 ×4; G0378 ×2; 90670

== ENCOUNTER 2018-10-21 09:41 | Emergency (ER) | payer OTHER ==
[2018-10-21] MEDS ORDERED: DIPHENHYDRAMINE 50 MG/ML VIAL ONE (10:31)
[2018-10-21] MEDS ORDERED: METOCLOPRAMIDE 10 MG/2mL INJ ONE (10:31)
--- NOTE | 2018-10-21 11:17 | ER ---
Nurse's Notes [facility] Name: Amber Acosta Age: 72 yrs Sex: Female : 1945 Arrival Date: 10/21/2018 Time: 09:45 Bed 8 Private MD: Lorraine Donnelly Diagnosis: Migraine Presentation: 10/21 09:53 Presenting complaint: Patient states: Woke up at 0300 this morning with a headache. Pt ss states, "it's migraine." Pt reports an ongoing history with migraines. Transition of care: patient was not received from another setting of care. Onset of symptoms was October 21, 2018. Risk Assessment: Do you want to hurt yourself or someone else? Patient reports no desire to harm self or others. Initial Sepsis Screen: Does the patient meet any 2 criteria? No. Patient's initial sepsis screen is negative. Does the patient have a suspected source of infection? No. Patient's initial sepsis screen is negative. Care prior to arrival: None. 09:53 Method Of Arrival: Ambulatory 09:53 Acuity: IVETTE 4 ss Triage Assessment: 11:45 Headache History: The patient has had previous headaches and this one is similar to ch previous episodes. General: Appears in no apparent distress. comfortable. Pain: Also complains of no other associated symptoms. Pain:. Historical: - Allergies: 09:58 Bees; ss 09:58 Codeine; ss 09:58 Demerol; ss 09:58 hydrocodone bitartrate; ss 09:58 Levofloxacin; ss 09:58 METRONIDAZOLE; ss 09:58 PENICILLINS; ss 09:58 SHELLFISH; ss 09:58 sulfamethoxazole; ss 09:58 TRIMETHOPRIM; ss 09:58 Wasps; ss - PMHx: 09:58 Anxiety; Depression; Diabetes - NIDDM; High Cholesterol; Hypertension; kidney cancer; ss Migraines; - PSHx: 09:58 Knee surgery; Hysterectomy; ss - Immunization history:: Adult Immunizations up to date. - Social history:: Smoking status: Patient/guardian denies using tobacco. - Ebola Screening: : Patient denies exposure to infectious person Patient denies travel to an Ebola-affected area in the 21 days before illness onset. Screenin:09 Abuse screen: Denies threats or abuse. Denies injuries from another. Nutritional ch screening: No deficits noted. Tuberculosis screening: No symptoms or risk factors identified. Fall Risk None identified. Assessment: 10:09 General: Appears in no apparent distress. comfortable, Behavior is calm, cooperative, ch appropriate for age. Pain: Complains of pain in right synagogue, left synagogue, left temporal area, left occipital area, right temporal area, right occipital area, left side of head and right side of head Pain currently is 7 out of 10 on a pain scale. Pain began suddenly, 0300. Neuro: Level of Consciousness is awake, alert, obeys commands, Oriented to person, place, time, situation, Armhole Baster Hand are equal bilaterally Moves all extremities. Full function Gait is steady, Speech is normal, Facial symmetry appears normal, Facial symmetry: tongue is midline, Pupils are PERRLA, no nystagmus. Respiratory: Airway is patent Respiratory effort is even, unlabored, Breath sounds are clear bilaterally. GI: Reports nausea. Derm: Skin is pink, warm \\T\\ dry. 10:27 Reassessment: Patient appears in no apparent distress at this time. Patient and/or ch family updated on plan of care and expected duration. Pain level reassessed. Patient is alert, oriented x 3, equal unlabored respirations, skin warm/dry/pink. pt states she does not have a ride home. 11:43 Reassessment: Patient appears in no apparent distress at this time. Patient and/or ch family updated on plan of care and expected duration. Pain level reassessed. Patient is alert, oriented x 3, equal unlabored respirations, skin warm/dry/pink. Patient denies pain at this time. Patient states feeling better. Patient states symptoms have improved. Vital Signs: 09:52 BP 156 / 104; Pulse 93; Resp 16; Temp 98.2(TE); Pulse Ox 97% on R/A; Weight 63.5 kg; ss Height 5 ft. 2 in. (157.48 cm); Pain 8/10; 11:42 BP 135 / 85; Pulse 88; Resp 17; Temp 97.8(TE); Pulse Ox 97% on R/A; Pain 1/10; jb1 09:52 Body Mass Index 25.61 (63.50 kg, 157.48 cm) ED Course: 09:45 Patient arrived in ED. mr 09:45 Lorraine Donnelly MD is Private Physician. mr 09:48 [facility]. jr8 09:48 Nael Romero MD is Attending Physician. jr8 09:52 Arm band placed on right wrist. 09:57 Triage completed. 09:58 Rody Sanchez, RN is Primary Nurse. ch 10:09 No apparent distress. Resting quietly. ch 10:09 Patient has correct armband on for positive identification. Bed in low position. Call light in reach. Side rails up X 1. Pulse ox on. NIBP on. Warm blanket given. Verbal reassurance given. 10:09 No provider procedures requiring assistance completed. ch 10:27 Inserted saline lock: 22 gauge in right forearm, using aseptic technique. ch 11:08 Lorraine Donnelly MD is Referral Physician. jr8 11:43 IV discontinued, intact, bleeding controlled, No redness/swelling at site. Pressure dressing applied. Administered Medications: 10:28 Drug: Reglan 10 mg Route: IVP; Site: right forearm; 11:00 Follow up: Response: No adverse reaction; Marked relief of symptoms Outcome: 11:08 Discharge ordered by . jr8 11:43 Discharged to home ambulatory. 11:43 Condition: improved 11:43 Discharge instructions given to patient, Instructed on discharge instructions, follow up and referral plans. medication usage, Demonstrated understanding of instructions, follow-up care. 11:46 Patient left the ED. Signatures: Chandu Lerner jb1 Rody Sanchez, RN RN Reshma Gallardo Joselyn Godfrey RN RN Everardo Scott PA [place] jr8
--- NOTE | 2018-10-21 11:17 | EDPHYS ---
Physician Documentation [facility] Name: Amber Acosta Age: 72 yrs Sex: Female : 1945 Arrival Date: 10/21/2018 Time: 09:45 Bed 8 Private MD: Lorraine Donnelly ED Physician Nael Romero HPI: 10/21 10:58 This 72 yrs old Female presents to ER via Ambulatory with complaints of jr8 Headache. 10:58 The patient complains of pain to the forehead. The patient describes the headache as jr8 throbbing. Onset: The symptoms/episode began/occurred acutely, today. Associated signs and symptoms: The patient has no apparent associated signs or symptoms. Severity of symptoms: At its worst the pain was moderate, in the emergency department the pain is unchanged. Headache History: The patient has had previous headaches and this one is similar to previous episodes. The symptoms are alleviated by nothing. the symptoms are aggravated by movement, noise, stress. The patient has experienced similar episodes in the past, several times. The patient has not recently seen a physician. Historical: - Allergies: 09:58 Bees; ss 09:58 Codeine; ss 09:58 Demerol; ss 09:58 hydrocodone bitartrate; ss 09:58 Levofloxacin; ss 09:58 METRONIDAZOLE; ss 09:58 PENICILLINS; ss 09:58 SHELLFISH; ss 09:58 sulfamethoxazole; ss 09:58 TRIMETHOPRIM; ss 09:58 Wasps; ss - PMHx: 09:58 Anxiety; Depression; Diabetes - NIDDM; High Cholesterol; Hypertension; kidney cancer; ss Migraines; - PSHx: 09:58 Knee surgery; Hysterectomy; ss - Immunization history:: Adult Immunizations up to date. - Social history:: Smoking status: Patient/guardian denies using tobacco. - Ebola Screening: : Patient denies exposure to infectious person Patient denies travel to an Ebola-affected area in the 21 days before illness onset. ROS: 10:58 Constitutional: Negative for fever, chills, and weight loss. jr8 10:58 Neuro: Positive for headache. 10:58 All other systems are negative. Exam: 10:58 Eyes: Pupils equal round and reactive to light, extra-ocular motions intact. Lids and jr8 lashes normal. Conjunctiva and sclera are non-icteric and not injected. Cornea within normal limits. Periorbital areas with no swelling, redness, or edema. ENT: Nares patent. No nasal discharge, no septal abnormalities noted. Tympanic membranes are normal and external auditory canals are clear. Oropharynx with no redness, swelling, or masses, exudates, or evidence of obstruction, uvula midline. Mucous membranes moist. Neck: Trachea midline, no thyromegaly or masses palpated, and no cervical lymphadenopathy. Supple, full range of motion without nuchal rigidity, or vertebral point tenderness. No Meningismus. Cardiovascular: Regular rate and rhythm with a normal S1 and S2. No gallops, murmurs, or rubs. Normal PMI, no JVD. No pulse deficits. Respiratory: Lungs have equal breath sounds bilaterally, clear to auscultation and percussion. No rales, rhonchi or wheezes noted. No increased work of breathing, no retractions or nasal flaring. Abdomen/GI: Soft, non-tender, with normal bowel sounds. No distension or tympany. No guarding or rebound. No evidence of tenderness throughout. Back: No spinal tenderness. No costovertebral tenderness. Full range of motion. Skin: Warm, dry with normal turgor. Normal color with no rashes, no lesions, and no evidence of cellulitis. MS/ Extremity: Pulses equal, no cyanosis. Neurovascular intact. Full, normal range of motion. Neuro: Awake and alert, GCS 15, oriented to person, place, time, and situation. Cranial nerves II-XII grossly intact. Motor strength 5/5 in all extremities. Sensory grossly intact. Cerebellar exam normal. Normal gait. Vital Signs: 09:52 BP 156 / 104; Pulse 93; Resp 16; Temp 98.2(TE); Pulse Ox 97% on R/A; Weight 63.5 kg; ss Height 5 ft. 2 in. (157.48 cm); Pain 8/10; 11:42 BP 135 / 85; Pulse 88; Resp 17; Temp 97.8(TE); Pulse Ox 97% on R/A; Pain 1/10; jb1 09:52 Body Mass Index 25.61 (63.50 kg, 157.48 cm) MDM: 09:48 Patient medically screened. jr8 11:07 Data reviewed: vital signs, nurses notes, and as a result, I will discharge patient. jr8 Data interpreted: Pulse oximetry: on room air is 97 %. Interpretation: normal. Counseling: I had a detailed discussion with the patient and/or guardian regarding: the historical points, exam findings, and any diagnostic results supporting the discharge/admit diagnosis, the need for outpatient follow up, a family practitioner, to return to the emergency department if symptoms worsen or persist or if there are any questions or concerns that arise at home. Response to treatment: the patient's symptoms have markedly improved after treatment. 10/21 10:02 Order name: IV; Complete Time: 8 Administered Medications: Drug: Reglan 10 mg Route: IVP; Site: right forearm; 11:00 Follow up: Response: No adverse reaction; Marked relief of symptoms ch Disposition: 10/22 06:59 Co-signature as Attending Physician, Nael Romero MD I agree with the assessment and wa plan of care. Disposition: 10/21/18 11:08 Discharged to Home. Impression: Migraine. - Condition is Stable. - Discharge Instructions: Migraine Headache. - Medication Reconciliation Form, Thank You Letter, Antibiotic Education, Prescription Opioid Use form. - Follow up: Lorraine Donnelly MD; When: 5 - 6 days; Reason: Recheck today's complaints, Continuance of care, Re-evaluation by your physician. - Problem is new. - Symptoms have improved. Signatures: Rody Sanchez RN RN Joselyn Godfrey RN RN Everardo Scott PA [place] jr8 Nael Romero MD MD wa Corrections: (The following items were deleted from the chart) 10/21 11:46 11:08 10/21/2018 11:08 Discharged to Home. Impression: Migraine. Condition is Stable. ch Forms are Medication Reconciliation Form, Thank You Letter, Antibiotic Education, Prescription Opioid Use. Follow up: Lorraine Donnelly; When: 5 - 6 days; Reason: Recheck today's complaints, Continuance of care, Re-evaluation by your physician. Problem is new. Symptoms have improved. jr8
[2018-10-23 17:03] VITALS: BP 135/85; TEMP 97.8; O2SAT 97
== END 2018-10-21 11:46 | disposition home or self-care (01) ==
LOC: ER 09:41
DX: G43.909 Migraine, unspecified, not intractable, without status migrainosus (principal); I10 Essential (primary) hypertension; Z88.0 Allergy status to penicillin; Z88.3 Allergy status to other anti-infective agents; Z88.5 Allergy status to narcotic agent; Z85.528 Personal history of other malignant neoplasm of kidney; Z91.013 Allergy to seafood; Z91.030 Bee allergy status; Z91.038 Other insect allergy status
CPT/HCPCS: 96374; 99283; J2765

== ENCOUNTER 2018-12-12 00:02 | Inpatient (IN) | payer OTHER ==
--- OUTSIDE RECORDS SUMMARY | 2018-12-12 00:07 | XMS REPORT | Continuity of Care Document ---
:1945 Author Organization [facility] [place] Care Team Providers Name Role Phone [facility] Appcelerator Unavailable Unavailable Problems Problem Status Onset Classification Date Comments Source Date Reported CVA Active 02/18/[address] AMS. CVA Active 02/18/[address] CVA (Confirmed) Resolved Problem 11/01/2018 [facility] Dementia Active Problem 11/01/2018 [facility] Depression Active Problem 11/01/2018 [facility] Diabetes mellitus Active Problem 11/01/2018 [facility] type II Neuro Diverticulitis Resolved Problem 11/01/2018 [facility] HDL Resolved Problem 11/01/2018 [facility] HTN (Confirmed) Resolved Problem 11/01/2018 [facility] Hyperlipidemia Active Problem 11/01/2018 [facility] Hypertension Active Problem 11/01/2018 [facility] Lumbar Active Problem 11/01/2018 [facility] Memory loss Active Problem 11/01/2018 [facility] Tremor Active Problem 11/01/2018 [facility] ALTERED MENTAL Active [facility] Medications Medication Details Route Status Patient Ordering Order Source Instructions Provider Date Donepezil 5 mg=1 tab, Active [facility] hydrochloride 5 PO, 019 Neuro MG Oral Tablet Bedtime, # [Aricept] 30 tab, 3 Refill(s), Pharmacy: [facility] [id number] Amlodipine 10 MG 10 mg=1 Active [facility] Oral Tablet tab, PO, 019 Neuro [Norvasc] Daily, # 30 tab, 1 Refill(s) gabapentin 100 MG 100 mg=1 Active [facility] Oral Capsule cap, PO, 019 Neuro BID, 0 Refill(s) Effexor 75 mg, PO, Active [facility] Daily, 0 019 Neuro Refill(s) Tramadol 50 mg, PO, Active [facility] Q4-6H, PRN 019 Neuro Pain, # 20 tab, 0 Refill(s) Lorazepam 0 Refill(s) Active [facility] 019 [facility] Omeprazole 40 mg, No Longer [facility] Route: PO, Active 014 Medical Drug form: Center DRC, Daily, Dosing Weight 81.818, kg, Start date: 02/19/14 9:00:00, Duration: 30 day, Stop date: 03/20/14 9:00:00 Losartan 25 mg, 1 No Longer [facility] tab, Route: Active 014 Medical PO, Drug Center form: TAB, Daily, Dosing Weight 81.818, kg, Start date: 02/19/14 9:00:00, Duration: 30 day, Stop date: 03/20/14 9:00:00Note s: (Same as: Cozaar) Zetia 10 mg, 1 No Longer [facility] tab, Route: Active 014 Medical PO, Drug Center form: TAB, Daily, Dosing Weight 81.818, kg, Start date: 02/19/14 9:00:00, Duration: 30 day, Stop date: 03/20/14 9:00:00Note s: (Same as: Zetia) Protonix 40 mg, 1 No Longer [facility] tab, Route: Active 014 Medical PO, Drug Center form: ECTAB, Before Breakfast, Start date: 02/19/14 7:30:00, Duration: 30 day, Stop date: 03/20/14 7:30:00Note s: Tablet should not be chewed or crushed. (Same as: Protonix) gabapentin 300 MG 300 mg, 1 No Longer [facility] Oral Capsule cap, Route: Active 014 Medical [Neurontin] PO, Drug Center form: CAP, Q8H, Dosing Weight 81.818, kg, Start date: 02/19/14 0:00:00, Duration: 30 day, Stop date: 03/20/14 16:00:00Not es: (Same as: Neurontin) Simvastatin 40 mg, 1 Inactive [facility] tab, Route: 014 Medical PO, Drug Center form: TAB, Bedtime, Dosing Weight 81.818, kg, Start date: 02/18/14 21:00:00, Duration: 30 day, Stop date: 03/19/14 21:00:00Not es: (Same as: Zocor) Restoril 30 mg, 2 Inactive [facility] cap, Route: 014 Medical PO, Drug Center form: CAP, Bedtime, PRN Sleep, Start date: 02/18/14 18:21:00, Duration: 30 day, Stop date: 03/20/14 18:20:00Not es: (Same As: Restoril) Bentyl 20 mg, 1 Inactive [facility] tab, Route: 014 Medical PO, Drug Center form: TAB, Q6H, Dosing Weight 81.818, kg, PRN Other -See Comment, Start date: 02/18/14 17:55:00, Stop date: 03/20/14 17:54:00, irritable bowelNotes: (Same as: Bentyl) Metoclopramide 10 10 mg, 1 Inactive [facility] MG Oral Tablet tab, Route: 014 Medical [Reglan] PO, Drug Center form: TAB, QID-Before Meals, Dosing Weight 81.818, kg, PRN Nausea, Start date: 02/18/14 17:54:00, Stop date: 03/20/14 17:53:00Not es: (Same as: Reglan) Take 30 min before meals Lorazepam 1 mg, 1 Inactive [facility] tab, Route: 014 Medical PO, Drug Center form: TAB, BID, Dosing Weight 81.818, kg, PRN as needed for anxiety, Start date: 02/18/14 17:53:00, Stop date: 03/20/14 17:52:00Not es: (Same as: Ativan) Lunesta 3 mg, Inactive [facility] Route: PO, 014 Medical Drug form: Center TAB, Bedtime, Dosing Weight 81.818, kg, PRN as needed for insomnia, Start date: 02/18/14 17:53:00, Stop date: 03/20/14 17:52:00 meclizine 25 mg 25 mg=1 On Hold [facility] oral tablet tab, PO, 014 Medical TID, for Center dizziness, # 60 tab, 0 Refill(s) losartan 50 mg 50 mg=1 On Hold [facility] oral tablet tab, PO, 014 Medical Daily, # 30 Center tab, 0 Refill(s) omeprazole 40 mg 40 mg=1 On Hold [facility] oral delayed cap, PO, 014 Medical release capsule Daily, # 30 Center cap, 0 Refill(s) promethazine 12.5 12.5 mg=1 On Hold [facility] mg oral tablet tab, PO, 014 Medical Q4H, Nausea Center & Vomiting, # 60 tab, 0 Refill(s) ezetimibe 10 MG 10 mg=1 On Hold [facility] Oral Tablet tab, PO, 014 Medical [Zetia] Daily, # 30 Center tab, 0 Refill(s) gabapentin 300 MG 300 mg=1 On Hold [facility] Oral Capsule cap, PO, 014 Medical [Neurontin] TID, # 90 Center cap, 0 Refill(s) clopidogrel 75 mg, 1 Inactive [facility] tab, Route: 014 Medical PO, Drug Center form: TAB, Daily, Dosing Weight 81.818, kg, Start date: 02/18/14 9:00:00, Duration: 30 day, Stop date: 03/19/14 9:00:00Note s: (Same As: Plavix) Aspirin 325 MG 325 mg, 1 Inactive [facility] Enteric Coated tab, Route: 014 Medical Tablet PO, Drug Center form: ECTAB, Daily, Dosing Weight 81.818, kg, Start date: 02/18/14 9:00:00, Duration: 30 day, Stop date: 03/19/14 9:00:00Note s: (Do Not Crush) Do not crush or chew. Keppra 500 mg, 1 Inactive [facility] tab, Route: 014 Medical PO, Drug Center form: TAB, Q12H, Dosing Weight 81.818, kg, Priority: NOW, Start date: 02/18/14 4:30:00, Duration: 30 day, Stop date: 03/19/14 21:00:00Not es: (Same as:Keppra) tramadol 50 mg, 1 Inactive [facility] hydrochloride 50 tab, Route: 014 Medical MG Oral Tablet PO, Drug Center form: TAB, Q6H, Dosing Weight 81.818, kg, PRN Pain, Start date: 02/18/14 4:12:00, Duration: 30 day, Stop date: 03/20/14 4:11:00Note s: Not to exceed 400mg/day. (Same As: Ultram) Lorazepam 0.5 mg, Inactive [facility] 0.25 mL, 014 Medical Route: IV, Center Drug form: INJ, ONCE, Dosing Weight 81.818, kg, Start date: 02/18/14 1:30:00, Stop date: 02/18/14 1:30:00Note s: (Same as: Ativan) Loratadine 10 mg, 1 Inactive [facility] tab, Route: 014 Medical PO, Drug Center form: TAB, Daily, Dosing Weight 81.818, kg, PRN Allergies, Start date: 02/18/14 0:28:00, Duration: 30 day, Stop date: 03/20/14 0:27:00Note s: 1 hr before meals (Same as: Claritin) Ondansetron 4 mg, Inactive [facility] Route: IVP, 014 Medical Drug form: Center INJ, ONCE, Dosing Weight 81.818, kg, Priority: STAT, Start date: 02/17/14 23:19:00, Stop date: 02/17/14 23:19:00 Benadryl 25 mg, Inactive [facility] Route: IVP, 014 Medical ONCE, Center Dosing Weight 81.818, kg, PRN Itching, Start date: 02/17/14 22:50:00 Meclizine 0 Refill(s) No Longer [address] Losartan 0 Refill(s) No Longer [address] Promethazine 0 Refill(s) No Longer [address] Zetia 0 Refill(s) No Longer [address] Rogaine 0 Refill(s) No Longer [address] Lunesta 0 Refill(s) No Longer [address] Lipitor 80 mg, 1 No Longer [facility] tab, Route: Active 014 Medical PO, Drug Center form: TAB, Bedtime, Dosing Weight 81.818, kg, Start date: 02/17/14 21:00:00, Duration: 30 day, Stop date: 03/18/14 21:00:00Not es: Same as Lipitor Saline Flush 0.9% 10 ml, No Longer [facility] Route: IVP, Active 014 Medical Drug Form: Center INJ, Dosing Weight 81.818, kg, Q12H, Start date: 02/17/14 21:00:00, Duration: 30 day, Stop date: 03/19/14 9:00:00Note s: (Same as: BD Posiflush) Famotidine 20 mg, 1 No Longer [facility] tab, Route: Active 014 Medical PO, Drug Center form: TAB, Q12H, Dosing Weight 81.818, kg, Start date: 02/17/14 21:00:00, Duration: 30 day, Stop date: 03/19/14 9:00:00Note s: (Same as: Pepcid) Tylenol 650 mg, Inactive [facility] Route: PO, 014 Medical Drug form: [place] TAB, ONCE, Dosing Weight 81.818, kg, Priority: STAT, Start date: 02/17/14 18:43:00, Stop date: 02/17/14 18:43:00 Dicyclomine 20 mg=1 On Hold [place] Hydrochloride 20 tab, PO, 014 Medical MG Oral Tablet Q6H, as Center [Bentyl] needed for irritable bowel Eszopiclone 3 MG 3 mg=1 tab, On Hold [place] Oral Tablet PO, 014 Medical [Lunesta] Bedtime, Center for insomnia clarithromycin 500 mg=1 No Longer [place] 500 mg oral tab, PO, Active 014 Medical tablet BID, 0 Center Refill(s) Metoclopramide 10 10 mg=1 On Hold [place] MG Oral Tablet tab, PO, 014 Medical [Reglan] QID-Before Center Meals, as needed for gastropares is, 0 Refill(s) ciprofloxacin 500 500 mg=1 No Longer [place] mg oral tablet tab, PO, Active 014 Medical BID Center simvastatin 40 mg 40 mg=1 On Hold [facility] oral tablet tab, PO, 014 Medical Daily, # 30 Center tab, 0 Refill(s) montelukast 10 MG 10 mg=1 On Hold [facility] Oral Tablet tab, PO, 014 Medical [Singulair] QAM, as Center needed for allergies (in the Spring only), # 30 tab, 0 Refill(s) metoprolol 50 mg=1 On Hold [facility] tartrate 50 mg tab, PO, 014 Medical oral tablet BID, # 180 Center tab, 0 Refill(s) LORazepam 1 mg 1 mg=1 tab, On Hold [facility] oral tablet PO, BID, 014 [facility] Anxiety Center Zofran 4 mg, Inactive [facility] Route: IVP, 014 Medical Drug form: [place] INJ, ONCE, Dosing Weight 81.818, kg, Priority: STAT, Start date: 02/17/14 16:53:00, Stop date: 02/17/14 16:53:00 heparin, porcine 5,000 unit, No Longer [facility] 1 mL, Active 014 [facility] Route: [place] SUB-Q, Drug form: INJ, Q8H, Dosing Weight 81.818, kg, (For patients weighing Notes: porcine heparin Saline Flush 0.9% 10 ml, Inactive [facility] Route: IVP, 014 [facility] Drug Form: Center INJ, Dosing Weight 81.818, kg, PRN, PRN Line Flush, Start date: 02/17/14 15:43:00, Duration: 30 day, Stop date: 03/19/14 14:42:00 Labetalol 10 mg, 2 No Longer [facility] mL, Route: Active 014 [facility] IVP, Drug Center form: INJ, Q10Min, Dosing Weight 81.818, kg, PRN Hypertensio n, Start date: 02/17/14 15:43:00, Stop date: 03/20/14 0:41:00, For SBP > 190mmHg and/or DBP > 105mmHg Acetaminophen 650 mg, 2 No Longer [facility] tab, Route: Active 014 Medical PO, Drug Center form: TAB, Q4H, Dosing Weight 81.818, kg, PRN Pain 1-3/Temp > 99.5 F, Start date: 02/17/14 15:43:00, Duration: 30 day, Stop date: 03/19/14 15:42:00Not es: Do not exceed 4 gm/day. (Same as: Tylenol) Sodium Chloride 1,000 mL, No Longer [facility] 0.154 MEQ/ML Rate: 100 Active 014 Medical Injectable ml/hr, Center Solution Infuse over: 10 hr, Route: IV, Dosing Weight 81.818 kg, Total Volume: 1,000, Start date: 02/17/14 15:43:00, Duration: 30 day, Stop date: 03/19/14 15:42:00 Plavix 300 mg, 1 Inactive [facility] tab, Route: 014 Medical PO, Drug Center form: TAB, ONCE, Dosing Weight 81.818, kg, Priority: STAT, Start date: 02/17/14 15:42:00, Stop date: 02/17/14 15:42:00Not es: ( Same as: Plavix) aspirin 324 mg, 4 Inactive [facility] tab, Route: 014 Medical CHEW, Drug Center form: CHEWTAB, ONCE, Dosing Weight 81.818, kg, Priority: STAT, Start date: 02/17/14 15:42:00, Stop date: 02/17/14 15:42:00Not es: Take with food. Sodium Chloride 1,000 mL, Inactive [facility] 0.154 MEQ/ML 1,000 014 Medical Injectable ml/hr, Center Solution Infuse Over: 1 hr, Route: IV, 1,000, Drug form: INJ, ONCE, Priority: STAT, Dosing Weight 81.818 kg, Start date: 02/17/14 15:16:00, Duration: 1 doses or times, Stop date: 02/17/14 15:16:00 iodixanol 120 mL, Inactive [facility] Route: IVP, 014 Medical Drug Form: Center SOLN, Dosing Weight 81.818, kg, ONCALL, STAT, Start date: 02/17/14 13:55:00, Duration: 1 doses or times, Dose=2.2ml/ kg, Max [id number] -- "To be infused by Radiology Staff ONLY"Specia l Instruction s: Dose=2.2ml/ kg, Max glfh=[id number] -- "To be infused by Radiology Staff ONLY" iodixanol 120 mL, Inactive [facility] Route: IVP, 014 Medical Drug Form: Center SOLN, Dosing Weight 81.818, kg, ONCALL, STAT, Start date: 02/17/14 13:51:00, Duration: 1 doses or times, Dose=2.2ml/ kg, Max [id number] -- "To be infused by Radiology Staff ONLY"Specia l Instruction s: Dose=2.2ml/ kg, Max ncli=[id number] -- "To be infused by Radiology Staff ONLY" Sodium Chloride 1,000 mL, Inactive [facility] 0.154 MEQ/ML 1,000 014 Medical Injectable ml/hr, [place] Solution Infuse Over: 1 hr, Route: IV, 1,000, Drug form: INJ, ONCE, Priority: STAT, Dosing Weight 81.818 kg, Start date: 02/17/14 12:51:00, Duration: 1 doses or times, Stop date: 02/17/14 12:51:00 Saline Flush 0.9% 10 mL, No Longer [facility] Route: IVP, Active 014 Medical Drug Form: Center INJ, Dosing Weight 81.818, kg, PRN, PRN Line Flush, Start date: 02/17/14 11:53:00, Duration: 30 day, Stop date: 03/19/14 10:52:00Not es: (Same as: BD Posiflush) Allergies, Adverse Reactions, Alerts Substance Category Reaction Severity Reaction Status Date Comments Source type Reported codeine Assertion Drug Active [facility] penicillin Assertion Drug Active [facility] Immunizations No Data Provided for This Section Results Order Name Results Value Reference Date Interpretation Comments Source Range SPECIAL Hgb A1C 6.6 <=5.6 % 02/18 [facility] CHEMISTRY [facility] LIPIDS CHD Risk 3.80 3.90 - 02/18 [facility] 5.80 [facility] LIPIDS Chol 167 <=199 02/18 [facility] mg/dL [facility] LIPIDS HDL 44 >=61 mg/dL 02/18 [facility] LIPIDS Trig 182 <=149 02/18 [facility] mg/dL [facility] LIPIDS VLDL 36 02/18 [facility] LIPIDS LDL 87 <=99 mg/dL 02/18 [facility] (Calculated) [facility] ANEMIA % Satur Fe 34 12 - 57 02/18 [facility] ANEMIA TIBC 342 228 - 428 02/18 [facility] ANEMIA UIBC 227 110 - 370 02/18 [facility] ANEMIA Iron 115 30 - 160 02/18 [facility] ANEMIA Ferritin Lvl 97 5 - 204 02/18 [facility] CHEM PANEL Lactic Acid 1.9 0.5 - 2.2 02/17 [facility] Lvl [facility] URINE AND UA Mucus None Seen None Seen 02/17 [facility] (02/17/14 2:18 PM) [facility] URINE AND UA Sq Epi Few /LPF Few /LPF 02/17 [facility] URINE AND UA RBC None Seen 0 - 2 02/17 [facility] (02/17/14 2:18 PM) [facility] URINE AND UA Bacteria Occasional None Seen 02/17 [facility] /HPF /HPF [facility] URINE AND UA WBC 0-2 /HPF None Seen 02/17 [facility] /HPF [facility] URINE AND UA Spec Grav 1.020 <=1.030 02/17 [facility] URINE AND UA Color Yellow Yellow 02/17 [facility] *NA* /2013 [facility] (02/17/14 2:18 PM) [place] URINE AND UA Turbidity Clear Clear 02/17 [facility] (02/17/14 2:18 PM) [facility] URINE AND UA Leuk Est Negative Negative 02/17 [facility] (02/17/14 2:18 PM) Medical [place] URINE AND UA Nitrite Negative Negative 02/17 [facility] (02/17/14 2:18 PM) [facility] URINE AND UA 0.2 0.1 - 1.0 02/17 [facility] Urobilinogen [facility] URINE AND UA Blood Negative Negative 02/17 [facility] (02/17/14 2:18 PM) [facility] URINE AND UA Bili Negative Negative 02/17 [facility] STOOL *NA* /2013 Medical (02/17/14 2:18 PM) Center URINE AND UA Glucose Negative Negative 02/17 [facility] STOOL (02/17/14 2:18 PM) [facility] URINE AND UA Ketones Negative Negative 02/17 [facility] STOOL *NA* Medical (02/17/14 2:18 PM) Center URINE AND UA Protein Negative Negative 02/17 [facility] STOOL (02/17/14 2:18 PM) [facility] URINE AND UA pH 6.5 5.0 - 8.0 02/17 [facility] STOOL [facility] CARDIAC CK MB 3.4 0.5 - 3.6 02/17 [facility] ENZYMES [facility] CARDIAC Troponin-I 0.07 0.00 - 02/17 [facility] ENZYMES 0.40 [facility] CARDIAC Total CK 123 12 - 191 02/17 [facility] ENZYMES [facility] CARDIAC CK MB Index 2.8 0.0 - 2.5 02/17 [facility] ENZYMES [facility] CHEM PANEL eGFR 02/17 <sup>1</sup>R esult Medical Comment: The Center eGFR is calculated using the CKD-EPI formula. In most young, healthy individuals the eGFR will be >90 mL/min/1.73m2 . The eGFR declines with age. An eGFR of 60-89 may be normal in some populations, particularly the elderly, for whom the CKD-EPI formula has not been extensively validated. Use of the eGFR is not recommended in the following populations:& lt;br/>
I ndividuals with unstable creatinine concentration s, including patients and those with serious co-morbid conditions.<b r/>
Patie nts with extremes in muscle mass or diet.

The data above are obtained from the National Kidney Disease Education Program (NKDEP) which additionally recommends that when the eGFR is used in patients with extremes of body mass index for purposes of drug dosing, the eGFR should be multiplied by the estimated BMI. CHEM PANEL Creatinine 1.4 0.5 - 1.4 02/17 [facility] Lvl [facility] CHEM PANEL Glucose Lvl 211 70 - 99 02/17 <sup>2</sup>I nterpretive Medical Data: Adult Center reference range values reflect the clinical guidelines
of the [place] [employer]. CHEM PANEL BUN 13 7 - 22 02/17 [facility] CHEM PANEL B/C Ratio 9 6 - 25 02/17 [facility] CHEM PANEL AGAP 16.8 10.0 - 02/17 20. [facility] CHEM PANEL Calcium Lvl 8.8 8.5 - 10.5 02/17 [facility] CHEM PANEL CO2 23 24 - 32 02/17 [facility] CHEM PANEL Chloride Lvl 105 95 - 109 02/17 [facility] CHEM PANEL Sodium Lvl 141 135 - 145 02/17 [facility] CHEM PANEL Potassium Lvl 3.8 3.5 - 5.1 02/17 [facility] CHEM PANEL A/G Ratio 1.0 0.7 - 1.6 02/17 [facility] CHEM PANEL Total Protein 7.0 6.4 - 8.4 02/17 [facility] CHEM PANEL Albumin Lvl 3.5 3.5 - 5.0 02/17 [facility] CHEM PANEL AST 24 0 - 37 02/17 [facility] CHEM PANEL ALT 28 0 - 65 02/17 [facility] CHEM PANEL Bili Total 0.6 0.2 - 1.3 02/17 [facility] CHEM PANEL Alk Phos 94 39 - 136 02/17 [facility] CHEM PANEL Globulin 3.5 2.0 - 4.0 02/17 [facility] CHEM PANEL Lactic Acid 4.9 0.5 - 2.2 02/17 <sup>3</sup>R [facility] esult Medical Comment: Center Critical Result(s) called to Dr. Stefanie Tamez at 02/17/2014 12:[address] Read back OK. HEMATOLOGY INR 0.95 0.85 - 02/17 <sup>4</sup>I [facility] 1. nterpretive Medical Data: Center RECOMMENDED RANGES FOR PROTIME INR:
2.0-3.0 for most medical and surgical thromboemboli c states.
2.5-3.5 for artificial heart valves and recurrent embolism.<br/ >
INR SHOULD BE USED ONLY FOR PATIENTS ON STABLE ANTICOAGULANT THERAPY. HEMATOLOGY PT 12.7 12.0 - 02/17 [facility] 14.7 /2013 [facility] HEMATOLOGY Platelet 205 133 - 450 02/17 Medical Center HEMATOLOGY MCH 29.0 27.0 - 02/17 31.0 [facility] HEMATOLOGY MCHC 33.7 32.0 - 02/17 [place] 36.0 /2013 [facility] HEMATOLOGY RDW 13.6 11.5 - 02/17 [facility] 14.5 [facility] HEMATOLOGY Hct 51.8 36.0 - 02/17 [facility] 48.0 /2013 [facility] HEMATOLOGY MCV 86.2 80.0 - 02/17 [place] 98.0 /2013 [facility] HEMATOLOGY Hgb 17.4 12.0 - 02/17 [facility] 16.0 [facility] HEMATOLOGY RBC 6.01 4.20 - 02/17 [facility] 5.40 /2013 [facility] HEMATOLOGY MPV 11.5 7.4 - 10.4 02/17 [facility] HEMATOLOGY WBC 14.1 3.7 - 10.4 02/17 [facility] HEMATOLOGY PTT 21.8 22.9 - 02/17 <sup>5</sup>I [facility] 35.8 nterpretive Medical Data: Heparin Center Therapeutic Range: 57 - 92 Seconds HEMATOLOGY Plt Morph Normal 02/17 [facility] (02/17/14 12:09 PM) [facility] HEMATOLOGY RBC Morph Normal 02/17 [facility] (02/17/14 12:09 PM) [facility] HEMATOLOGY Eosinophils # 0.1 0.0 - 0.5 02/17 [facility] HEMATOLOGY Basophils # 0.1 0.0 - 0.2 02/17 [facility] HEMATOLOGY Segs-Bands # 10.8 1.5 - 8.1 02/17 [facility] HEMATOLOGY Monocytes # 0.6 0.0 - 0.8 02/17 [facility] HEMATOLOGY Lymphocytes # 2.5 1.0 - 5.5 02/17 [facility] HEMATOLOGY Lymphocytes 17.5 20.0 - 02/17 [place] 40.0 [facility] HEMATOLOGY Segs 77.0 45.0 - 02/17 [place] 75.0 /2013 [facility] HEMATOLOGY Monocytes 4.3 2.0 - 12.0 02/17 [facility] HEMATOLOGY Basophils 0.4 0.0 - 1.0 02/17 [facility] HEMATOLOGY Eosinophils 0.8 0.0 - 4.0 02/17 [facility] Pathology Reports No Data Provided for This Section Diagnostic Reports No Data Provided for This Section Consultation Notes No Data Provided for This Section Discharge Summaries No Data Provided for This Section History and Physicals No Data Provided for This Section Vital Signs Vital Sign Value Date Comments Source Weight 55.455 10/29/2018 [facility] BMI Calculated 22.36 10/29/2018 [facility] Height 157.48 cm 10/29/2018 [facility] Systolic (mm Hg) 136 10/29/2018 [facility] Diastolic (mm Hg) 86 10/29/2018 [facility] Respitory Rate 16 10/29/2018 [facility] Heart Rate 71 10/29/2018 [facility] Weight 57.273 09/27/2018 [facility] BMI Calculated 23.86 09/27/2018 [facility] Height 154.94 cm 09/27/2018 [facility] Respitory Rate 16 09/27/2018 [facility] Systolic (mm Hg) 153 09/27/2018 [facility] Diastolic (mm Hg) 85 09/27/2018 [facility] Heart Rate 60 09/27/2018 [facility] Systolic (mm Hg) 195 02/18/2014 [facility] Diastolic (mm Hg) 92 02/18/2014 [facility] Respitory Rate 18 02/18/2014 [facility] Systolic (mm Hg) 159 02/18/2014 [facility] Diastolic (mm Hg) 91 02/18/2014 [facility] Respitory Rate 27 02/18/2014 [facility] Systolic (mm Hg) 144 02/18/2014 [facility] Diastolic (mm Hg) 77 02/18/2014 [facility] Respitory Rate 27 02/18/2014 [facility] [facility] Temperature Oral (F) 99.5 F 02/18/2014 [facility] Height 172.72 cm 02/17/2014 [facility] BMI Calculated 27.43 02/17/2014 [facility] Weight 81.818 02/17/2014 [facility] Heart Rate 120 02/17/2014 [facility] Encounters Location Location Encounter Encounter Reason Attending ADM DC Status Source Details Type Number For Provider Date Date Visit [facility] Inpatient [id number] Susannah 02/17 02/19 [facility]2013 [facility] Outpatient [id number] Oscar 09/27 09[place]28 [facility]2018 [facility] [id number] Oscar 10/29 [facility] Outpatient [id number] Oscar 10/29 10/30 [facility]2018 [facility] [place] [facility] [id number] Oscar 12/10 [facility] Procedures Procedure Code Date Perfomer Comments Source Back fusion [id number] [facility] Assessment and Plan Assessment and Plan Date Source Extracted from:Title: Stroke Fellow H/P 02/19/2014 [facility] Author: Robert Martinez MD Date: 02/17/14 STROKE TEAM / NEUROLOGY - HISTORY AND PHYSICAL Attending of Record: Susannah Betancourt Patient Name: Vernell, Female (Josephine Acosta is real name) Date of Admission: 02/17/14 Requesting Physician/Service: EM CC: Lt hemiparesis and syncope HISTORY OF PRESENT ILLNESS: 68 yo RH female with a h/o HTN, prior stroke in 2005 with unknown etiology and with no residual deficits (presenting sx was left hemiparesis), renal malignant tumor resected in 2004, who is brought to ER by [facility] after her witnessed a syncopal episode. Patient woke up this morning fine but she was complaining of a mild headache (no neck pain) for whic h she took probiotics. At around 10:15 am, patient mentioned to her that she was feeling dizzy and warm. Her head was itching and tingling. She then lost balance and she passed out for a few sec onds. Her caught her before she could fall and laid her on the floor and called 911. Patient had a loss of bowel control but no urinary incontinence. No convulsions were appreciated. Patient had some drool from her mouth. Post episode, patient was confused and disoriented. On arrival to the scene, EMS reports patient was hemiparetic on the left side. Her BP on arrival to [facility] ED at was 126/90 and her glucose was 211. Patient's exam has been non focal although she chuy ears disoriented, unable to recollect the earlier events of the day and making a few paraphasic errors. At baseline, and son Don report that patient has suffered cognitive decline (mostly as azul rt term memory loss) after her 2006 stroke. 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 She is otherwise fully independent per the family, still able to ambulate without assista nce, handling her cooking, dressing and personal hygiene. REVIEW OF SYSTEMS: GEN: no fever, chills, weight loss, fatigue EYES: no blurred vision, double vision CARDIO: no chest pain, palpatations PULM: no shortness of breath, cough GI: no nausea, vomiting, diarrhea, no abd pain : no frequency, dysuria, burning, hematuria NEURO: see HPI SKIN: no rash or lesion MSK: no pain, swelling, redness, heat in muscles, no limited ROM, weakness, or atrophy, no cramps LYMPH/IMMUNO: No lymph node enlargement/tenderness, no heat/cold intolerance PAST MEDICAL HISTORY: HTN, prior stroke in 2005 with presenting sx as left hemiparesis and no residual deficit, diverticulitis. PAST SURGICAL HISTORY: Hysterectomy, back surgery, renal malignant tumor resection (no metatstases, CTX or XRT) FAMILY MEDICAL HISTORY: Stroke in younger son in his 40s, hypertension, father of ID, mother of lung cancer. SOCIAL HISTORY: The patient is . She lives with her son and . No history of alcohol use, tobacco use (smoking and dipping), or drug use (prior and current). MEDICATIONS: unknown at this time. ALLERGIES: NKDA PHYSICAL EXAM: Vital Signs: Temperature 96 Blood Pressure 126-184/79-99 Pulse 90-110 Respirations 20 O2 sats 99% on RA GENERAL: Awake, alert, NAD. HEENT: - Normocephalic and atraumatic; MMM LUNGS - Clear to auscultation bilaterally with no wheezes CV - S1S2 RRR, no m/r/g, equal pulses bilaterally. ABDOMEN - Soft, nontender, nondistended with normoactive BS NEURO: Mental status: Awake, alert, and interactive. Oriented to self. Knew the month was January but not the day of week. She thought the year was 2014. Did not know the location. Answers questions and follow s commands appropriately. She keeps asking why her is not present at the bedside (he was on his way to the hospital). She made a few paraphasic errors such as she said "gideon" instead of "left" but caught herself. Comprehension, fluency, naming and repetition are intact. Cranial nerves: Pupils equal, round, and reactive. Visual quesada intact to confrontation. Eye movements full without nystagmus. Face symmetric at rest and with activation. Facial sensation is intact to light touch. Tongue and palate midline. Good strength in trapezius and sternocleidomastoid bilaterally. Motor: Normal bulk and tone. Strength is 5/5 proximally and distally. Sensation: intact to light touch, pinprick, temperature and vibration throughout. Coordination: no dysmetria on [id number]-[id number]-vamftk. Reflexes: R Biceps 2+, Triceps 2+, Brachioradialis 2+, Patella 2+, Ankle 2+. L Biceps 2+, Triceps 2+, Brachioradialis 2+, Patella 2+, Ankle 2+. Toes downgoing bilaterally. Gait: not tested. NIH Stroke Scale (NIHSS) 1a. Level of Consciousness; 0-alert 1-drowsy 2-stupor 3-comatose 0 1b. LOC Questions month and age; 0-both 1-one 2-neither 1 (said she was 62) 1c. LOC Commands open/close eyes, cco/release non-paretic hand; 0-both 1-one 2-neither  0 2. Best Gaze; 0-nl 1-partial 2-forced gaze 0 3. Visual Quesada; 0-No visual loss. 1-Partial hemianopia 2-Complete 3- Bilateral 𗨞0 4. Facial Palsy; 0-none 1-minor 2-partial 3-complete 0 5. Motor - R arm; 0-No drift 1-Drift 2-Some antigravity 3-No antigravity 4-No movement 𖮧 0 6. Motor - R leg; 0-No drift 1-Drift 2-Some antigravity 3-No antigravity 4-No movement  0 7. Motor - L arm; 0-No drift 1-Drift 2-Some antigravity 3-No antigravity 4-No movement 𒭉 0 8. Motor - L leg; 0-No drift 1-Drift 2-Some antigravity 3-No antigravity 4-No movement  0 9. Limb Ataxia; 0 absent 1 - 1limb 2 - 2 limbs 0 10. Sensory; 0-nl 1-partial loss 2-dense loss 0 11. Best Language; 0-nl 1-mild/mod 2-severe 3-mute 0 12. Dysarthria; 0-nl 1-mild/mod 2-severe x-untestable 0 13. 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 - Questionable age-indeterminate ischemic change in the right thalamus. - No hemorrhage. 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 - Diffuse intracranial atherosclerosis most evident in the left MCA, bilateral outside sales and basilar artery. 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 - Atherosclerosis of the carotid bifurcations without significant stenosis by NASCET criteria. MRI head: no DWI abnormality. CSVI changes in the PWM. EKG: NSR ASSESSMENT: 1. Suspected TIA 68 yo RHF with a h/o HTN and a prior stroke in 2005 with no residual symptoms, p/w syncope and reported transient left hemiparesis which resolved in under an hour. Patient was confused and disoriented a fter regaining consciousness. Fecal incontinence noted with drooling at the mouth. Exam is non focal at the current time with mental status abnormalities which could relate in part to her chronic cognitive decline. CTH revealed an age-indeterminate right thalamic hypodensity, however MRI is negative for acute strokes. Nonetheless a TIA remains very high on the differential given the extensive atherosclerotic disea se in the posterior circulation (distal left VA atherosclerotic occlusion and atherosclerotic BA). Other considerations which remain high on the differential include a possible atonic seizure or a syncopal episode. To rule out these possibilities, patient will get an EEG as well as telemetry/TTE. We will not commit the patient to an AED since the suspicion for seizure is not higher than a vascular event and so we will await EEG results. Patient will however be started loaded with ASA 325 and Maria Del Rosario vix 300 and maintained thereafter on ASA 325 + Plavix 75 x 3 months for the symptomatic intracranial atherosclerosis as outlined in the [facility] protocol. DIFFERENTIAL DIAGNOSIS TIA vs. seizure vs. syncope. PLAN - Admit to stroke unit. - ASA 325mg daily and Plavix load (300 mg) was given in the ER. Patient will be maintained on ASA 325 and Plavix 75 for three months per the [facility] protocol. - Atorvastatin 80mg daily has been ordered. - TTE to evaluate for cardiac source of embolus. - Routine EEG - Stroke labs: fasting lipid panel and hemoglobin A1c. - IVNS 125cc/hr. - Permissive hypertension. - Treat fevers and blood sugars aggressively. - PT/OT/PELLETIZER TENDER consults - rehab assessments have been ordered. - DVT prophylaxis. - GI prophylaxis. 2. Elevated serum lactate Patient has a leukocytosis but no fever or focus of infection and CPK is normal. CT abdomen and pelvis was unremarkable. Differential: infection process, seizure (although no convulsions were witnessed which makes it much less likely) PLAN - Trend lactate and WBC - IVF hydration ACUTE STROKE BENCHMARKS: TIME PT LAST SEEN NORMAL 10:15 on 02/17/14 EMS PRE-NOTIFICATION N/A CODE STROKE ACTIVATION 13:03 ARRIVAL TIME 11:42 TIME OF STROKE TEAM EVALUATION 13:10 CT HEAD READ TIME 13:00 IV tPA bolus (time and dose) N/A IV tPA infusion (time and dose) N/A If not a candidate for IV tPA, why? Resolved sx Delays in this process: (None) INTRA-ARTERIAL THERAPY: SCREENIN) Patient was not IA candidate because: no symptoms. 2) CTA/P was done CORE MEASURES: 1) Antithrombotics have been ordered and given before the end of hospital day 2 OR NOT APPLICABLE BECAUSE: 2) Statins have been ordered for LDL > 100 OR NOT APPLICABLE BECAUSE: 3) Rehab assessment has been ordered OR I have assessed the patient and rehab IS NOT APPLICABLE AT THIS TIME BECAUSE: 4) Stroke education: I have discussed with the patient and/or family in detail about 1. the signs and symptoms of stroke; 2. the importance of their early recognition and activation of EMS via 911; 3. s troke risk factors have been clearly identified and communicated to the patient ; 4. The importance of taking prescribed medication to treat these risk factors for secondary stroke prevention; and 5. the importance of regular follow- up appointments to prevent stroke has also been emphasized Emery Martinez MD Vascular Neurology fellow MSO# [id number] Pager# [phone] STROKE STAFF I have personally evaluated the patient. i have reviewed the fellow 's note detailed above. I agree with the fellows findings, assessment and plan as outlined in the note except as detailed below. 02/18: she is right handed, hx of nephrectomy; sister reports that she woke up dizzy yesterday thought she was having an allergic reaction and reporting a lot of swelling which was not reported upon pre sentation. sister reports concern that she went for 12hrs 'without treatment'. when we tried to explain to her sister that we when evaluated the patient in the ED yesterday there were no signs of an allergic rxn, she interrupted me, said i was getting defensive since i don't know her sister and don't know what she looks like normally. the patient continues to state that she was in the garden yesterday but her sister continues to tell us that is not true, suggesting the patient has lost time. In addition, i have reviewed the patient's neuroimaging findings which reveal: CT: Chronic small vessel ischemic changes and old lacunar infarctions. Questionable age-indeterminate ischemic change in the right thalamus. No hemorrhage. 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 Diffuse intracranial atherosclerosis most evident in the left MCA, bilateral outside sales and basilar artery. 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 Atherosclerosis of the carotid bifurcations without significant stenosis by NASCET criteria. MRI 02/17: moderate white matter disease, negative for acute ischemic stroke; formal report pending TTE: pending LIPIDS: pending exam: awake, alert, oriented, but is one day off on the date; PERRL, face symmetric; no drift, no motor weakness, very mild dyscoordination LLE, no sensory changes, no marina dysmetria/ataxia impression/Plan: 68 y.o. with vascular risk factors, severe intracranial atherosclerotic disease presents with syncope and then worsening of her baseline L hemiparesis. she has uncontrolled hypertension and if she reall y did have an allergic reaction, she could have hypoperfused due to her intracranial athero. there is no new infarct; etiology: no new stroke diagnostic eval: FU study reports treatment plan: goal SBP 140-160 today. transfer to floor; she should be on an antiplatelet, statin and BP pressure regimen for her prior history of stroke. can go home when she's tolerating a SBP closer to the 140 range. THE FOLLOWING WERE PRESENT ON ADMISSION: 780.2, syncope secondary to cerebral hypoperfusion 401.9, HTN, malignant 288.6, leukocytosis [id number] Plan of Care No Data Provided for This Section Social History Social History Date Source Social History TypeResponse 02/18/2014 [facility] Substance Abuse Use: None. Sexual Sexually active: No. Exercise Exercise duration: 30. Exercise type: Walking, Yoga. Employment/School 1, 2 Alcohol Never Smoking Status Never smoker; Exposure to Tobacco Smoke None; Cigarette Smoking Last 365 Days No; Reg Smoking Cessation Counseling No entered on: 10/29/18 1may release medical records to: Ednamaximiliano Pate(POA), Cristela Dyer(Sister )2retried Social History TypeResponse 02/18/2014 [facility] Substance Abuse Use: None Sexual Sexually active: No Exercise Exercise type: Walking, Exercise type: Yoga Employment/School 1 Alcohol Use: Never Smoking Status Never smoker, Exposure to Tobacco Smoke None, Cigarette Smoking Last 365 Days No, Reg Smoking Cessation Counseling No 1retried Family History No Data Provided for This Section Advance Directives No Data Provided for This Section Functional Status No Data Provided for This Section
[2018-12-12] MEDS ORDERED: MORPHINE 2 MG/ML SYR ONE ×3 (01:07→04:51)
[2018-12-12] MEDS ORDERED: ONDANSETRON 4 MG/2 ML VIAL ONE (01:07)
[2018-12-12] MEDS ORDERED: NA CHLORIDE 0.9% 1,000 ML ONE (01:07)
[2018-12-12 01:30] LABS: Absolute Lymphocytes (CBC) 2.1 K/uL (0.7-4.9); Basophils % 0.8 % (0-1.3); Hematocrit 38.1 % (36.0-45.0); Lymphocytes % 17.5 % (15.3-44.8); RBC Red Blood Cell Count 4.22 M/uL (3.86-4.86)
[2018-12-12 01:31] LABS: Urine Blood NEGATIVE (NEG); Urine Glucose NEGATIVE (NEG); Urine Protein TRACE (NEG); Urine Specific Gravity 1.025 (1.005-1.030); Urine pH 5.5 (5.0-7.0)
[2018-12-12 01:39] LABS: Calcium Oxalate Crystals- Ur MODERATE (NONE SEEN); Urine Bacteria <20 /HPF (<20); Urine Culture Reflex Order NOT NEEDED; Urine RBC NONE SEEN /HPF (NONE SEEN)
[2018-12-12 01:54] LABS: ALT/SGPT 16 U/L (12-78); AST/SGOT 20 U/L (15-37); Albumin 3.2 g/dL (3.4-5.0); Alkaline Phosphatase 78 U/L (45-117); BUN Blood Urea Nitrogen 18 mg/dL (7-18); Bicarbonate 28 mmol/L (21-32); Bilirubin Direct < 0.1 mg/dL (0-0.2); Bilirubin Total 0.4 mg/dL (0.2-1.0); Glucose Level 74 mg/dL (74-106); Lipase 273 U/L (73-393); Potassium 3.6 mmol/L (3.5-5.1); Protein, Total 6.6 g/dL (6.4-8.2); Sodium Level 142 mmol/L (136-145)
[2018-12-12] MEDS ORDERED: METRONIDAZOLE 500mg IVPB 0 MG/0 ML BAG IV ONE (04:46)
--- NOTE | 2018-12-12 04:56 | ER ---
Nurse's Notes [facility] Name: Amber Acosta Age: 73 yrs Sex: Female : 1945 Arrival Date: 12/12/2018 Time: 00:05 Bed 5 Private MD: Diagnosis: Abdominal pain. Acute diverticulitis Presentation: 12/12 00:39 Presenting complaint: Patient states: left lower quadrant pain X3 days. left shoulder ak1 pain X1 week. pt denies N/V. pt last BM Sunday, WNL for pt. Transition of care: patient was not received from another setting of care. Onset of symptoms is unknown. Risk Assessment: Do you want to hurt yourself or someone else? Patient reports no desire to harm self or others. Initial Sepsis Screen: Does the patient meet any 2 criteria? No. Patient's initial sepsis screen is negative. Does the patient have a suspected source of infection? No. Patient's initial sepsis screen is negative. Care prior to arrival: None. 00:39 Method Of Arrival: Ambulatory ak1 00:39 Acuity: IVETTE 3 ak1 Triage Assessment: 00:41 General: Appears in no apparent distress. Behavior is calm, cooperative. Pain: ak1 Complains of pain in left lower quadrant. 00:41 EENT: No signs and/or symptoms were reported regarding the EENT system. Neuro: Level of ak1 Consciousness is awake, alert, obeys commands, Oriented to person, place, time, situation, Serology Technician are equal bilaterally Moves all extremities. Gait is steady, Speech is normal. Cardiovascular: No deficits noted. Respiratory: No deficits noted. GI: Abdomen is round non-distended, Bowel sounds present X 4 quads. Abd is soft X 4 quads Abdomen is tender to palpation in left lower quadrant Patient currently denies constipation, nausea, vomiting. : No signs and/or symptoms were reported regarding the genitourinary system. Derm: No signs and/or symptoms reported regarding the dermatologic system. Musculoskeletal: No signs and/or symptoms reported regarding the musculoskeletal system. Historical: - Allergies: 00:41 Bees; ak1 00:41 Codeine; ak1 00:41 Demerol; ak1 00:41 hydrocodone bitartrate; ak1 00:41 Levofloxacin; ak1 00:41 METRONIDAZOLE; ak1 00:41 PENICILLINS; ak1 00:41 Wasps; ak1 00:41 TRIMETHOPRIM; ak1 00:41 sulfamethoxazole; ak1 00:41 SHELLFISH; ak1 - Home Meds: 02:37 metoprolol tartrate 50 mg oral tab 1 tab 2 times per day [Active]; atorvastatin 50mg ak1 Oral 1 tab at night [Active]; amlodipine 10 mg tab 1 tab once daily [Active]; metformin 500 mg oral tab 1 tab 2 times per day [Active]; gabapentin 100 mg oral cap 3 caps 3 times per day [Active]; Effexor 3 tabs Oral 75 mg daily [Active]; lorazepam 1 mg Oral tab 1 tab once daily for Anxiety [Active]; Ecotrin 325 mg Oral TbEC 1 tab once daily [Active]; doxazosin 2 mg oral tab 1 tab once daily [Active]; donepezil 5 mg oral TbDL 1 tab once daily [Active]; pantoprazole 20 mg oral TbEC 1 tab once daily [Active]; Lunesta 3 mg oral tab 1 tab once daily [Active]; - PMHx: 00:41 Anxiety; Depression; Diabetes - NIDDM; High Cholesterol; Hypertension; kidney cancer; ak1 Migraines; 02:37 Alzheimers; GERD; CAD; ak1 - PSHx: 00:41 Knee surgery; Hysterectomy; ak1 - Immunization history:: Adult Immunizations unknown. - Social history:: Smoking status: Patient/guardian denies using tobacco. - Ebola Screening: : No symptoms or risks identified at this time. Screenin:42 Abuse screen: Denies threats or abuse. Denies injuries from another. Nutritional ak1 screening: No deficits noted. Tuberculosis screening: No symptoms or risk factors identified. Fall Risk None identified. Assessment: 00:55 Reassessment: Patient appears in no apparent distress at this time. No changes from ak1 previously documented assessment. Patient and/or family updated on plan of care and expected duration. Pain level reassessed. Patient is alert, oriented x 3, equal unlabored respirations, skin warm/dry/pink. pt ambulated with no assistance to restroom. 01:30 Reassessment: Patient appears in no apparent distress at this time. No changes from ak1 previously documented assessment. Patient and/or family updated on plan of care and expected duration. Pain level reassessed. Patient is alert, oriented x 3, equal unlabored respirations, skin warm/dry/pink. Patient states feeling better. 01:31 Reassessment: pt drinking the oral contrast. ak1 01:39 Reassessment: food service technician notified, pt finished oral contrast. ak1 02:37 Reassessment: pt sister Ronny Dyer can be contacted at [phone]. ak1 03:28 Reassessment: pt returned from CT. ak1 04:45 Reassessment: Patient appears in no apparent distress at this time. No changes from ak1 previously documented assessment. Patient and/or family updated on plan of care and expected duration. Pain level reassessed. Patient is alert, oriented x 3, equal unlabored respirations, skin warm/dry/pink. pt assisted to restroom. 05:15 Reassessment: Patient appears in no apparent distress at this time. pt resting with ak1 eyes closed, resp even and unlabored. 05:53 Reassessment: Patient appears in no apparent distress at this time. Patient and/or ak1 family updated on plan of care and expected duration. Pain level reassessed. Patient is alert, oriented x 3, equal unlabored respirations, skin warm/dry/pink. pt informed of admission. pt sister contacted with no answer X2. Vital Signs: 00:35 BP 147 / 75; Pulse 75; Resp 18; Temp 99.4(TE); Pulse Ox 96% on R/A; Weight 56.7 kg (R); ak1 Height 5 ft. 2 in. (157.48 cm) (R); Pain 5/10; 01:32 BP 126 / 72; Pulse 73; Resp 16; Pulse Ox 97% on R/A; ak1 02:30 BP 127 / 76; Pulse 70; Resp 18; Pulse Ox 96% on R/A; ao 03:30 BP 123 / 73; Pulse 76; Resp 20; Pulse Ox 94% ; ao 04:40 BP 125 / 75; Pulse 73; Resp 14; Pulse Ox 94% on R/A; ao 05:52 BP 116 / 74; Pulse 69; Resp 16; Pulse Ox 95% on R/A; ao 06:34 BP 127 / 68; Pulse 69; Resp 16; Temp 98.9; Pulse Ox 95% on R/A; ak1 07:29 BP 130 / 78; Pulse 66; Resp 18; Temp 98.1; Pulse Ox 96% on R/A; jb1 00:35 Body Mass Index 22.86 (56.70 kg, 157.48 cm) ak1 ED Course: 00:05 Patient arrived in ED. ds1 00:24 Marcos Cintron PA is PHCP. cp 00:24 Maximilian Pritchett MD is Attending Physician. cp 00:35 Arm band placed on Patient placed in an exam room, on a stretcher, on pulse oximetry, ak1 Patient notified of wait time. 00:40 Triage completed. ak1 00:42 Patient has correct armband on for positive identification. Placed in gown. Bed in low ak1 position. Call light in reach. Side rails up X 1. Adult w/ patient. Pulse ox on. NIBP on. 00:54 Dory Mariano, RN is Primary Nurse. ak1 01:16 No provider procedures requiring assistance completed. Initial lab(s) drawn, by ma, ak1 sent to lab. Urine collected: clean catch specimen, clear. Missed attempt(s): 22 gauge in right antecubital area. Bleeding controlled, band aid applied, catheter tip intact. 01:18 Urine Microscopic Only Sent. ak1 01:25 Inserted saline lock: 22 gauge in left forearm, using aseptic technique. Blood ao collected. 03:29 CT completed. Patient tolerated procedure well. Patient moved to CT via stretcher. Patient moved back from CT. 03:37 Abdomen In Process Unspecified. EDMS 05:47 Pillo Amaya is Hospitalizing Provider. pkl 05:54 Patient admitted, IV remains in place. ak1 07:39 Urine Dipstick--Ancillary (enter results) Sent. sv 07:39 CT Abd/Pelvis - PO Contrast Only Sent. sv 07:39 Troponin I Sent. sv 07:39 Basic Metabolic Panel Sent. sv 07:39 CBC with Diff Sent. sv 07:39 Creatinine for Radiology Sent. sv 07:39 Hepatic Function Sent. sv 07:39 Lipase Sent. sv Administered Medications: 00:37 CANCELLED (Physician Discretion): fentaNYL (PF) 25 mcg IVP once; RASS on ADMIN: cp Combtv4, Very Agttd3, Agttd2, Rstlss1, AlertClm0, Drwsy-1, Lt Sdtn-2, Mod Sdtn-3, Dp Sdtn-4, UnArsble-5 01:30 Drug: morphine 2 mg Route: IVP; Site: left forearm; ak1 01:31 Follow up: Response: No adverse reaction; Pain is decreased; RASS: Alert and Calm (0); ak1 RASS: Drowsy (-1) 01:30 Drug: NS 0.9% 250 ml Route: IV; Rate: bolus; Site: left forearm; ak1 01:38 Follow up: IV Status: Completed infusion; IV Intake: 250ml ak1 01:31 Drug: Zofran 4 mg Route: IVP; Site: left forearm; ak1 01:31 Follow up: Response: No adverse reaction ak1 01:38 Drug: NS 0.9% 1000 ml Route: IV; Rate: 100 ml/hr; Site: left forearm; ak1 05:54 Follow up: IV Status: Order to discontinue infusion ak1 02:23 Drug: morphine 2 mg Route: IVP; Site: left forearm; ak1 05:55 Follow up: Response: No adverse reaction; Pain is decreased; RASS: Drowsy (-1) ak1 05:00 Drug: morphine 2 mg {Note: Rass 0.} Route: IVP; Site: left forearm; ao 05:58 Follow up: Response: No adverse reaction; Pain is decreased; RASS: Alert and Calm (0) ao Intake: 01:38 IV: 250ml; Total: 250ml. ak1 Outcome: 04:56 Discharge ordered by . pkl 05:49 Decision to Hospitalize by Provider. pkl 07:29 Admitted to Tele accompanied by tech, via wheelchair, room 211, with chart, Report sv called to Barb COVARRUBIAS 07:29 Condition: stable 07:29 Instructed on the need for admit. 07:46 Patient left the ED. sv Signatures: Dispatcher [employer] EDChandu Mcdaniels Stephanie, RN RN sv Lam, Pin, MD MD pkl Hagler, Ervin eh Sanford, Demi ds1 Dory Mariano RN RN ak1 Marcos Cintron PA PA cp Ortiz, Alex, RN RN ao Corrections: (The following items were deleted from the chart) 02:37 00:41 Home Meds: Plavix Oral; ak1 ak1 02:37 00:41 Home Meds: Metoprolol Tartrate Oral 1 tab nightly; ak1 ak1 02:37 00:41 Home Meds: atorvastatin Oral; ak1 ak1 05:58 05:00 morphine 2 mg IVP in left forearm ao ao 05:59 00:39 Presenting complaint: Patient states: left lower quadrant pain X3 days. left ak1 shoulder pain X1 week. pt denies N/V. pt last BM ARISTIDES Haji for pt. ak1
--- NOTE | 2018-12-12 04:57 | EDPHYS ---
Physician Documentation [facility] Name: Amber Acosta Age: 73 yrs Sex: Female : 1945 Arrival Date: 12/12/2018 Time: 00:05 Bed 5 Private MD: ED Physician Maximilian Pritchett HPI: 12/12 00:50 This 73 yrs old Female presents to ER via Ambulatory with complaints of cp Abdominal Pain. 00:50 The patient presents with abdominal pain in the left lower quadrant. Onset: The cp symptoms/episode began/occurred 3 day(s) ago. Associated signs and symptoms: Pertinent negatives: anorexia, blood in stools, constipation, diarrhea, dysuria, fever, vomiting. Historical: - Allergies: 00:41 Bees; ak1 00:41 Codeine; ak1 00:41 Demerol; ak1 00:41 hydrocodone bitartrate; ak1 00:41 Levofloxacin; ak1 00:41 METRONIDAZOLE; ak1 00:41 PENICILLINS; ak1 00:41 Wasps; ak1 00:41 TRIMETHOPRIM; ak1 00:41 sulfamethoxazole; ak1 00:41 SHELLFISH; ak1 - Home Meds: 02:37 metoprolol tartrate 50 mg oral tab 1 tab 2 times per day [Active]; atorvastatin 50mg ak1 Oral 1 tab at night [Active]; amlodipine 10 mg tab 1 tab once daily [Active]; metformin 500 mg oral tab 1 tab 2 times per day [Active]; gabapentin 100 mg oral cap 3 caps 3 times per day [Active]; Effexor 3 tabs Oral 75 mg daily [Active]; lorazepam 1 mg Oral tab 1 tab once daily for Anxiety [Active]; Ecotrin 325 mg Oral TbEC 1 tab once daily [Active]; doxazosin 2 mg oral tab 1 tab once daily [Active]; donepezil 5 mg oral TbDL 1 tab once daily [Active]; pantoprazole 20 mg oral TbEC 1 tab once daily [Active]; Lunesta 3 mg oral tab 1 tab once daily [Active]; - PMHx: 00:41 Anxiety; Depression; Diabetes - NIDDM; High Cholesterol; Hypertension; kidney cancer; ak1 Migraines; 02:37 Alzheimers; GERD; CAD; ak1 - PSHx: 00:41 Knee surgery; Hysterectomy; ak1 - Immunization history:: Adult Immunizations unknown. - Social history:: Smoking status: Patient/guardian denies using tobacco. - Ebola Screening: : No symptoms or risks identified at this time. ROS: 00:55 Constitutional: Negative for body aches, chills, fever, poor PO intake. cp 00:55 Eyes: Negative for injury, pain, redness, and discharge. cp 00:55 ENT: Negative for drainage from ear(s), ear pain, sore throat, difficulty swallowing, difficulty handling secretions. 00:55 Cardiovascular: Negative for chest pain, edema, palpitations. 00:55 Respiratory: Negative for cough, shortness of breath, wheezing. 00:55 Abdomen/GI: Positive for abdominal pain, of the left lower quadrant, Negative for nausea, vomiting, and diarrhea, constipation, anorexia, black/tarry stool, rectal bleeding. 00:55 Back: Negative for radiated pain. 00:55 MS/extremity: Positive for pain, of the left shoulder, Negative for injury or acute deformity, decreased range of motion, paresthesias. 00:55 Neuro: Negative for altered mental status, headache, weakness. 00:55 All other systems are negative. Exam: 01:05 Constitutional: The patient appears in no acute distress, alert, awake, cp non-diaphoretic, non-toxic, well developed, well nourished. 01:05 Head/Face: Normocephalic, atraumatic. cp 01:05 Eyes: Periorbital structures: appear normal, Conjunctiva: normal, no exudate, no injection, Sclera: no appreciated abnormality, Lids and lashes: appear normal, bilaterally. 01:05 ENT: External ear(s): are unremarkable, Nose: is normal, Mouth: Lips: moist, Oral mucosa: pink and intact, moist, Posterior pharynx: is normal, airway is patent, no erythema, no exudate. 01:05 Chest/axilla: Inspection: normal, Palpation: is normal, no crepitus, no tenderness. 01:05 Cardiovascular: Rate: normal, Rhythm: regular, Edema: is not appreciated, JVD: is not appreciated. 01:05 Respiratory: the patient does not display signs of respiratory distress, Respirations: normal, no use of accessory muscles, no retractions, no splinting, no tachypnea, labored breathing, is not present, Breath sounds: are clear throughout, no decreased breath sounds, no stridor, no wheezing. 01:05 Abdomen/GI: Inspection: abdomen appears normal, Bowel sounds: active, all quadrants, Palpation: soft, in all quadrants, moderate abdominal tenderness, in the left lower quadrant, rebound tenderness, is not appreciated, voluntary guarding, is elicited in the left lower quadrant. 01:05 Back: pain, is absent, ROM is normal. 01:26 ECG was reviewed by the Attending Physician. cp Vital Signs: 00:35 BP 147 / 75; Pulse 75; Resp 18; Temp 99.4(TE); Pulse Ox 96% on R/A; Weight 56.7 kg (R); ak1 Height 5 ft. 2 in. (157.48 cm) (R); Pain 5/10; 01:32 BP 126 / 72; Pulse 73; Resp 16; Pulse Ox 97% on R/A; ak1 02:30 BP 127 / 76; Pulse 70; Resp 18; Pulse Ox 96% on R/A; ao 03:30 BP 123 / 73; Pulse 76; Resp 20; Pulse Ox 94% ; ao 04:40 BP 125 / 75; Pulse 73; Resp 14; Pulse Ox 94% on R/A; ao 05:52 BP 116 / 74; Pulse 69; Resp 16; Pulse Ox 95% on R/A; ao 06:34 BP 127 / 68; Pulse 69; Resp 16; Temp 98.9; Pulse Ox 95% on R/A; ak1 07:29 BP 130 / 78; Pulse 66; Resp 18; Temp 98.1; Pulse Ox 96% on R/A; jb1 00:35 Body Mass Index 22.86 (56.70 kg, 157.48 cm) ak1 MDM: 00:30 Patient medically screened. cp 01:38 Differential diagnosis: appendicitis, diverticulitis, non-specific abd pain, cp Ureterolithiasis, urinary tract infection, colitis. 02:55 Data reviewed: vital signs, nurses notes, lab test result(s), EKG. cp 02:55 Test interpretation: by ED physician or midlevel provider: ECG. Transition of care: After a detail discussion of the patient's case, care is transferred to Maximilian Pritchett MD. 12/12 00:38 Order name: Basic Metabolic Panel cp 12/12 00:38 Order name: CBC with Diff cp 12/12 00:38 Order name: Creatinine for Radiology cp 12/12 00:38 Order name: Hepatic Function cp 12/12 00:38 Order name: Lipase cp 12/12 00:40 Order name: Urine Microscopic Only cp 12/12 00:55 Order name: Troponin I cp 12/12 01:06 Order name: Urine Dipstick--Ancillary (enter results) ar5 12/12 01:31 Order name: CBC with Automated Diff EDMS 12/12 01:34 Interpretation: Normal except: WBC 11.9; MN% 14.0; MNA 1.7. cp 12/12 01:32 Order name: Urine Dipstick-Ancillary; Complete Time: 01:32 EDMS 12/12 01:39 Order name: Urine Microscopic Only EDNH 12/12 01:54 Order name: Troponin I; Complete Time: 02:51 EDMS 12/12 01:55 Order name: Basic Metabolic Panel EDMS 12/12 01:55 Order name: Liver (Hepatic) Function EDMS 12/12 00:38 Order name: IV Saline Lock; Complete Time: 01:17 cp 12/12 00:38 Order name: Labs collected and sent; Complete Time: 01:16 cp 12/12 00:40 Order name: Urine Dipstick-Ancillary (obtain specimen); Complete Time: 01:16 cp 12/12 00:55 Order name: EKG; Complete Time: 01:12 cp 12/12 00:55 Order name: EKG - Nurse/Tech; Complete Time: 01:16 cp 12/12 00:57 Order name: CT Abd/Pelvis - PO Contrast Only cp 12/12 01:55 Order name: Lipase EDNH 12/12 01:55 Order name: Creatinine (Radiology Only) EDNH 12/12 02:08 Order name: Abdomen EDMS EC:26 Rate is 82 beats/min. Rhythm is regular. FL interval is normal. QRS interval is normal. cp QT interval is normal. Interpreted by me. Reviewed by me. Administered Medications: 00:37 CANCELLED (Physician Discretion): fentaNYL (PF) 25 mcg IVP once; RASS on ADMIN: cp Combtv4, Very Agttd3, Agttd2, Rstlss1, AlertClm0, Drwsy-1, Lt Sdtn-2, Mod Sdtn-3, Dp Sdtn-4, UnArsble-5 01:30 Drug: morphine 2 mg Route: IVP; Site: left forearm; ak1 01:31 Follow up: Response: No adverse reaction; Pain is decreased; RASS: Alert and Calm (0); ak1 RASS: Drowsy (-1) 01:30 Drug: NS 0.9% 250 ml Route: IV; Rate: bolus; Site: left forearm; ak1 01:38 Follow up: IV Status: Completed infusion; IV Intake: 250ml ak1 01:31 Drug: Zofran 4 mg Route: IVP; Site: left forearm; ak1 01:31 Follow up: Response: No adverse reaction ak1 01:38 Drug: NS 0.9% 1000 ml Route: IV; Rate: 100 ml/hr; Site: left forearm; ak1 05:54 Follow up: IV Status: Order to discontinue infusion ak1 02:23 Drug: morphine 2 mg Route: IVP; Site: left forearm; ak1 05:55 Follow up: Response: No adverse reaction; Pain is decreased; RASS: Drowsy (-1) ak1 05:00 Drug: morphine 2 mg {Note: Rass 0.} Route: IVP; Site: left forearm; ao 05:58 Follow up: Response: No adverse reaction; Pain is decreased; RASS: Alert and Calm (0) ao Disposition: 05:47 Co-signature as Attending Physician, Maximilian Pritchett MD. pkclara Disposition: 12/12/18 05:49 Hospitalization ordered by Pillo Amaya for Inpatient Admission. Preliminary diagnosis is Abdominal pain. Acute diverticulitis. - Bed requested for Telemetry/MedSurg (Inpatient). - Status is Inpatient Admission. sv - Condition is Stable. - Problem is new. - Symptoms are unchanged. UTI on Admission? No Signatures: Dispatcher [employer] Isabella Lane RN RN sv Lam, Pin, MD MD pkl Dory Mariano RN RN ak1 Marcos Cintron PA PA cp Garcia, Cindy, RN RN Dimas Honeycutt RN RN ao Corrections: (The following items were deleted from the chart) 00:37 00:37 fentaNYL (PF) 25 mcg IVP once; RASS on ADMIN: Combtv4, Very Agttd3, Agttd2, cp Rstlss1, AlertClm0, Drwsy-1, Lt Sdtn-2, Mod Sdtn-3, Dp Sdtn-4, UnArsble-5 ordered. cp 01:33 01:34 Normal except: WBC 11.9; MN% 14.0. cp cp 02:37 00:41 Home Meds: Plavix Oral; ak1 ak1 02:37 00:41 Home Meds: Metoprolol Tartrate Oral 1 tab nightly; ak1 ak1 02:37 00:41 Home Meds: atorvastatin Oral; ak1 ak1 05:08 04:56 12/12/2018 04:56 Discharged to Home. Impression: Acute diverticulitis. Condition pkl is Stable. Forms are Medication Reconciliation Form, Thank You Letter, Antibiotic Education, Prescription Opioid Use. Follow up: Private Physician; When: 2 - 3 days; Reason: Re-evaluation by your physician. Problem is new. Symptoms have improved. pkl 06:20 05:49 Hospitalization Ordered by Pillo Amaya for Inpatient Admission. Preliminary cg diagnosis is Abdominal pain. Acute diverticulitis. Bed requested for Telemetry/MedSurg (Inpatient). Status is Inpatient Admission. Condition is Stable. Problem is new. Symptoms are unchanged. UTI on Admission? No. pkl 07:46 06:20 12/12/2018 05:49 Hospitalization Ordered by Pillo Amaya for Inpatient sv Admission. Preliminary diagnosis is Abdominal pain. Acute diverticulitis. Bed requested for Telemetry/MedSurg (Inpatient). Status is Inpatient Admission. Condition is Stable. Problem is new. Symptoms are unchanged. UTI on Admission? No. cg
--- NOTE | 2018-12-12 05:59 | P.HP ---
Certification for Inpatient With expected LOS: >2 Midnights Practitioner: I am a practitioner with admitting privileges, knowledge of patient current condition, hospital course, and medical plan of care. Services: Services provided to patient in accordance with Admission requirements found in Title 42 Section 412.3 of the Code of Federal Regulations Patient History Date of Service: 12/12/18 Reason for admission: Abdominal pain-1 week duration History of Present Illness: 73-year-old woman history of sigmoid diverticulosis and diabetes presented emergency department with a 1 week history of lower quadrant abdominal pain, rated at 8/10 in maximum security, nonradiating, no aggravating or relieving factor. Patient denied any diarrhea or nausea or vomiting. She also denied fever. She was hospitalized on 07/23/18 for similar complaint, diagnosed with acute diverticulitis by CT abdomen, treated with IV Rocephin and Flagyl and discharged with ora Ceftin and Flagyl. She was informed to see a furniture upholstery mechanic for colonoscopy after 4-6 weeks but she failed to do so. In the ED today, CT abdomen and pelvis report acute sigmoid diverticulitis. She has mild leukocytosis. She rated the pain at 8/10 and colicky during my assessment. Patient is admitted for treatment of 2nd bout of acute diverticulitis and for pain control. Allergies sulfamethoxazole [From Bactrim] Allergy (Severe, Verified 09/04/12 06:00) Anaphylaxis trimethoprim [From Bactrim] Allergy (Severe, Verified 09/04/12 06:00) Anaphylaxis venom-honey bee [bee venom (honey bee)] Allergy (Severe, Verified 08/21/11 21:55 ) Anaphylaxis codeine [Codeine] Allergy (Verified 08/21/11 15:51) Hives metronidazole [From Flagyl] Allergy (Verified 06/05/14 02:04) Shortness of breath Penicillins Allergy (Verified 07/23/18 18:23) Unknown Shellfish Adverse Reaction (Intermediate, Verified 08/21/11 21:55) Nausea/Vomiting levofloxacin [From Levaquin] Adverse Reaction (Verified 08/21/11 21:53) Itching/Hives/Rash Bees Allergy (Uncoded 07/27/15 16:19) Unknown codeine Allergy (Uncoded 06/05/14 02:04) Hives/Rash PCN Allergy (Uncoded 10/17/14 18:15) Unknown Wasps Allergy (Uncoded 07/27/15 16:19) Unknown Home Medications: Eszopiclone [Lunesta] 3 mg PO BEDTIME 07/23/18 Lorazepam [Ativan] 1 mg PO BID 07/23/18 Metformin HCl [Glucophage*] 500 mg PO BID 07/23/18 Metoprolol Tartrate 100 mg PO BID 07/23/18 Omeprazole [Prilosec] 40 mg PO BID PRN 07/23/18 Simvastatin 40 mg PO BEDTIME 07/23/18 Tramadol HCl [Ultram] 50 mg PO BID PRN 07/23/18 Cefuroxime [Ceftin] 500 mg PO BID #28 tab 07/24/18 metroNIDAZOLE [Flagyl] 500 mg PO Q8H #21 tablet 07/24/18 - Past Medical/Surgical History Diabetic: Yes -: MIGRAINES -: HTN -: CVA -: ANXIETY -: HYPERLIPIDEMIA -: DIVERTICULOSIS -: HYSTERECTOMY -: RENAL SX - Family History Father -: Heart disease, Hypertension Notes: CAD Brother -: Heart disease, Hypertension Notes: TRIPLE BYPASS - Social History Smoking Status: Never smoker Alcohol use: No CD- Drugs: No Caffeine use: Yes Review of Systems Other: General: No fever, no malaise, no unintentional weight loss. Eyes: No eye discharge, Respiratory: No cough, no shortness of breath. CVS: No chest pain, no palpitation, no lightheadedness. GI: No nausea no vomit, no constipation, no diarrhea. Genitourinary: No dysuria, no urinary frequency, no incontinence, no hematuria. Musculoskeletal: No joint pains, or joint swelling, no gait instability. Neurology: No headache, no asymmetric, weakness, no problem with swallowing. Except as documented, all other systems reviewed and negative. Physical Examination - Physical Exam General: Alert, Oriented x3, Mild distress HEENT: Atraumatic, Normocephalic, PERRLA, Mucous membr. moist/pink Neck: Supple, 2+ carotid pulse no bruit, JVD not distended Respiratory: Clear to auscultation bilaterally, Normal air movement Cardiovascular: No edema, Normal pulses, Regular rate/rhythm, Normal S1 S2, No murmurs Capillary refill: <2 Seconds Gastrointestinal: Normal bowel sounds, Non-distended, No guarding, Tenderness ( In the lower abdomen but more pronounced in the left lower quadrant. Mild rebound tenderness in the left lower quadrant) Musculoskeletal: No clubbing, No erythema, No tenderness Integumentary: No rashes, No breakdown Neurological: Normal strength at 5/5 x4 extr, Cranial nerves 3-12 intact, Normal affect - Studies Laboratory Data (last 24 hrs) 12/12/18 01:12: Troponin I < 0.02 12/12/18 01:12: Creatinine 0.91 12/12/18 01:12: WBC 11.9 H, Hgb 12.4, Hct 38.1, Plt Count 186 12/12/18 01:12: Sodium 142, Potassium 3.6, BUN 18, Creatinine 0.92, Glucose 74, Total Bilirubin 0.4, AST 20, ALT 16, Alkaline Phosphatase 78, Lipase 273 Imagings Data: CT abdomen and pelvis: Acute sigmoid diverticulitis. No abscess reported. Assessment and Plan - Problems (Diagnosis) (1) Acute diverticulitis Current Visit: Yes Status: Acute (2) Diabetes mellitus type 2 in nonobese Current Visit: Yes Status: Chronic - Plan Admit to general medical floor Start IV Rocephin and IV Flagyl Clear liquid diet. Supportive measures with IV hydration, IV morphine p.r.n. for pain Serial abdominal examination. Blood glucose management with insulin sliding scale. Hold metformin. Outpatient followup with gastroenterology within 4-6 weeks for colonoscopy. Discharge Plan: Home Plan to discharge in: 48 Hours - Advance Directives Does patient have a Living Will: No Does patient have a Durable POA for Healthcare: No - Code Status/Comfort Care Code Status Assessed: Yes Code Status: Full Code Time Spent Managing Pts Care (In Minutes): 66
[2018-12-12] MEDS ORDERED: ACETAMINOPHEN 500 MG TAB PO PRN (06:08)
[2018-12-12] MEDS ORDERED: ONDANSETRON 4 MG/2 ML VIAL IV PRN (06:08)
[2018-12-12] MEDS: INSULIN -REGULAR HUMAN 50 UNIT/0.5 ML ML SQ SCH ×4 (07:30→21:00)
[2018-12-12 08:13] VITALS: BMI 22.5
[2018-12-12] MEDS: NA CHLORIDE 0.9% 1,000 ML IV SCH ×2 (08:29→22:27)
[2018-12-12] MEDS: ENOXAPARIN 40 MG/0.4 ML SQ SCH (08:31)
[2018-12-12] MEDS ORDERED: TRAMADOL HCL 50 MG TAB PO PRN (09:27)
--- NOTE | 2018-12-12 09:55 | RAD REPORT ---
EXAM DESCRIPTION: CT - Abdomen Pelvis Wo Contrast - 12/12/2018 4:35 am CLINICAL HISTORY: LLQ abdomen pain COMPARISON: July 23, 2018. TECHNIQUE: CT ABDOMEN PELVIS WITHOUT IV CONTRAST on 12/12/2018 12:57 AM CDT This exam was performed according to our departmental dose-optimization program, which includes autom ated exposure control, adjustment of the mA and/or kV according to patient size and/or use of iterati ve reconstruction technique. FINDINGS: Lower lungs are clear. Abdomen: The liver is normal in appearance. There is no biliary dilatation. Cholecystectomy was perfo rmed. Angiogram glands are normal. The pancreas and spleen are normal in appearance. There is a 1 mm upper pole right renal calculus. There are postoperative changes of the lateral midpole of the left k idney. Abdominal aorta is normal in course and caliber without aneurysm. There is no free air. There is no r etroperitoneal adenopathy. Pelvis: There is extensive thickening of the sigmoid colon multiple diverticula in place. There is mi ld surrounding inflammation. Urinary bladder is unremarkable. There is no free fluid. Hysterectomy wa s performed. Appendix is normal. Skeleton: There are no acute osseous findings. No suspicious bony lesions. IMPRESSION: Acute diverticulitis of the mid sigmoid colon. Electronically signed by: Freeman Melo MD 12/12/2018 4:24 AM CDT Due to temporary technical issues with the PACS/Fluency reporting system, reports are being signed by the in house radiologist as a courtesy to ensure prompt reporting. The interpreting radiologist is f ully responsible for the content of the report.
[2018-12-12 13:32] LABS: Urine Appearance CLEAR; Urine Bilirubin NEGATIVE (NEG); Urine Blood NEGATIVE (NEG); Urine Color YELLOW; Urine Glucose NEGATIVE (NEG); Urine Protein NEGATIVE (NEG); Urine Specific Gravity <=1.005 (1.005-1.030); Urine Urobilinogen 0.2 mg/dL (0.2-1.0)
[2018-12-12 13:34] LABS: Urine Microscopic Reflex NO UMIC
[2018-12-12] MEDS ORDERED: ESZOPICLONE 1 MG TAB PO PRN (13:39)
--- NOTE | 2018-12-12 13:49 | EKG ---
Test Date: 2018-12-12 Test Time: 01:13:57 Dobie Worker: MEI MEASUREMENT RESULTS: Intervals: Rate: 82 NV: 158 QRSD: 80 QT: 380 QTc: [address] [place]: P: 79 NV: 158 QRS: 61 T: 61 INTERPRETIVE STATEMENTS: Normal sinus rhythm Normal ECG Compared to ECG 07/23/2018 09:56:09 No significant changes Electronically Signed On 12-12-18 13:47:18 CDT by Jose Antonio Finn
--- NOTE | 2018-12-12 14:15 | PN ---
Date of Progress Note: 12/12/2018 Subjective: Code status full. The patient is seen and examined. Chart reviewed and case discussed with RN. The patient overall is doing better. Still having some abdominal pain. No nausea or vomit ing. Medications: List reviewed. Physical Examination: Vital Signs: Temperature 97.2, heart rate 70, blood pressure 125/58, respirations 18, O2 96% on room air. General: Awake, alert, oriented x3. Elderly female, in some mild distress. CV: S1, S2. Regular rate and rhythm. Peripheral pulses present. Respiratory: Moving air well bilaterally. No wheezing or stridor. No use of accessory muscles. Gastrointestinal: Abdomen is soft. Tenderness to palpation in the lower quadrant. No rebound or gu arding. No rigidity. Positive bowel sounds. Extremities: No clubbing, cyanosis, or edema. Neurologic: Nonfocal. Laboratory Data: WBC 11.9. Troponin less than 0.02. CT scan of the abdomen and pelvis shows acute diverticulitis of the mid sigmoid colon, 1 mm right upper pole renal calculus. Assessment And Plan: A 73-year-old female with. 1.Acute sigmoid diverticulitis. We will continue with IV antibiotics, IV fluids. Continue clear li quid diet and monitor pain. We will start on tramadol for pain. If not improving, may need surgical evaluation. 2.Diabetes mellitus type 2, non-insulin requiring with hyperglycemia. We will continue with sliding scale insulin. Monitor blood glucose levels. 3.History of migraine headaches. 4.Essential hypertension, stable. 5.History of cerebrovascular accident. 6.Generalized anxiety disorder, on Ativan twice a day. 7.Mixed hyperlipidemia. Continue statin. 8.DVT prophylaxis with Lovenox. Plan: Discharge in the next 24 to 48 hours depending on clinical response. SA/MODL Voice ID: [id number] Report ID: [id number]
[2018-12-12] MEDS: METRONIDAZOLE 500mg IVPB 500 MG/100 ML BAG IV SCH (17:05)
[2018-12-12] MEDS: LORAZEPAM 1 MG TABLET PO SCH (17:07)
[2018-12-12] MEDS: METOPROLOL XL 100 MG TAB PO SCH (17:07)
[2018-12-12] MEDS: PANTOPRAZOLE 40MG TABLET PO SCH (17:08)
[2018-12-12] MEDS ORDERED: DIPHENHYDRAMINE 25 MG TAB/CAP PO PRN (17:34)
[2018-12-12] MEDS ORDERED: ATORVASTATIN 20 MG TAB PO SCH (21:00)
[2018-12-13] MEDS: METRONIDAZOLE 500mg IVPB 500 MG/100 ML BAG IV SCH ×2 (00:55→08:12)
[2018-12-13 05:35] LABS: BUN Blood Urea Nitrogen 7 mg/dL (7-18); Bicarbonate 26 mmol/L (21-32); Glucose Level 86 mg/dL (74-106); Potassium 3.5 mmol/L (3.5-5.1); Sodium Level 147 mmol/L (136-145)
[2018-12-13 05:45] LABS: Absolute Lymphocytes (CBC) 1.9 K/uL (0.7-4.9); Basophils % 0.6 % (0-1.3); Hematocrit 35.8 % (36.0-45.0); Lymphocytes % 25.2 % (15.3-44.8); MPV 10.4 fL (7.6-11.3); RBC Red Blood Cell Count 3.93 M/uL (3.86-4.86)
[2018-12-13] MEDS: LORAZEPAM 1 MG TABLET PO SCH (06:20)
[2018-12-13] MEDS: METOPROLOL XL 100 MG TAB PO SCH (06:20)
[2018-12-13] MEDS: PANTOPRAZOLE 40MG TABLET PO SCH (06:20)
[2018-12-13] MEDS: INSULIN -REGULAR HUMAN 50 UNIT/0.5 ML ML SQ SCH ×2 (07:30→11:30)
[2018-12-13] MEDS: ENOXAPARIN 40 MG/0.4 ML SQ SCH (08:12)
[2018-12-13] MEDS ORDERED: CEFTRIAXONE 1 GM/NS 50 ML 1 GM/50 ML BAG IV SCH (09:00)
[2018-12-13] MEDS ORDERED: POTASSIUM CL SA 10 MEQ TAB PO ONE (09:00)
[2018-12-13] MEDS ORDERED: CEFTRIAXONE/SWI 1gm 1 GM/10 ML SYR IV SCH (09:00)
[2018-12-13 10:13] VITALS: O2SAT 94
[2018-12-13 13:07] VITALS: BP 148/77; TEMP 97.7
--- NOTE | 2018-12-13 16:20 | DS ---
Date of Discharge: 12/13/2018 Admitting Diagnoses: 1.Acute diverticulitis. 2.Diabetes mellitus type 2, idn-rbfemla-vxjvocttt with hyperglycemia. 3.Insomnia. 4.Generalized anxiety disorder. 5.Mixed hyperlipidemia. 6.History of cerebrovascular accident. 7.Migraine. Discharge Diagnoses: 1.Acute sigmoid diverticulitis without perforation, improved. 2.Diabetes mellitus type 2, fnq-vagfjob-ekyjgegyn with hyperglycemia, stable. 3.History of migraine headache, stable. 4.Essential hypertension, stable. 5.History of cerebrovascular accident, stable. 6.Generalized anxiety disorder, on benzodiazepines. 7.Mixed hyperlipidemia, on statin. Hospital Course: The patient is a 73-year-old female with past medical history of hypertension, hype rlipidemia, history of CVA, comes in with acute abdominal pain. The patient had an elevated white bl ood cell count. This is her second hospitalization for similar complaint in the past 4 months. The patient has not had a colonoscopy. The patient's CT scan of the abdomen and pelvis showed acute sigm oid diverticulitis. There is no abscess. The patient was started on IV antibiotics and IV hydration . Pain was controlled with IV analgesics. The patient responded well to IV antibiotics. Her white blood cell count improved. Overall, the patient did well. During the course of the hospital stay, s he was able to tolerate a GI soft diet. Her pain had improved significantly. She was able to ambula te. Did not have any bloody bowel movements. The patient was afebrile. She was then cleared for [facility] and was sent home in a stable condition. Activity: As tolerated. Instructions: No driving or operating heavy machinery while on benzodiazepines. Medications: As per medication reconciliation list. The patient is recommended to take Lunesta only at bedtime instead of twice a day. No Lunesta was prescribed to the patient. Followup: Followup with primary care physician in 2 to 3 days. [facility] with GI [facility]. She understands the importance of colonoscopy which may discover, which is important to rule out any sort of mass. Diet: [place] diet. Physical Examination: General: Awake, alert, oriented x3. No acute distress. CV: S1, S2. Respiratory: Moving air well bilaterally. Gastrointestinal: Abdomen is soft, nontender, nondistended. Positive bowel sounds. Extremities: No clubbing, cyanosis, or edema. Neurologic: Nonfocal. Total time spent discharging the patient was 35 minutes. /ERI Voice ID: [id number] Report ID: [id number]
[2018-12-13] MEDS ORDERED: TRAZODONE 50 MG TABLET PO ONE (21:49)
== END 2018-12-13 14:18 | disposition home or self-care (01) | DRG 392 ==
LOC: ER 00:02 → ERHOLD 06:12 → 2ND 07:28
PROVIDERS: ADMIT Internal Medicine; ATTEND Internal Medicine
DX: K57.32 Diverticulitis of large intestine without perforation or abscess without bleeding (principal); E11.65 Type 2 diabetes mellitus with hyperglycemia; I10 Essential (primary) hypertension; Z86.73 Personal history of transient ischemic attack (TIA), and cerebral infarction without residual deficits; F41.1 Generalized anxiety disorder; E78.2 Mixed hyperlipidemia; Z88.2 Allergy status to sulfonamides; Z91.030 Bee allergy status; Z88.0 Allergy status to penicillin; Z91.013 Allergy to seafood
CPT/HCPCS: 36415; 74176; 80048; 80076; 81003; 81015; 82962; 83690; 83735; 84484; 85025; 93005; 94760; 96361; 96374; 96375; 99285; J0696; J1650; J2270; J2405; J7030

== ENCOUNTER → 2018-12-29 | Emergency (ER) | payer OTHER ==
--- OUTSIDE RECORDS SUMMARY | 2018-12-29 20:03 | XMS REPORT | Continuity of Care Document ---
:1945 Author Organization [employer] [facility] Care Team Providers Name Role Phone [facility] Information [employer] Unavailable Unavailable Problems Problem Status Onset Classification Date Comments Source Date Reported CVA Active 02/18/[address] AMS. CVA Active 02/18/[address] CVA (Confirmed) Resolved Problem 11/01/2018 [facility] Dementia Active Problem 11/01/2018 [facility] Neuro Depression Active Problem 11/01/2018 [facility] Diabetes mellitus Active Problem 11/01/2018 [facility] type II Neuro Diverticulitis Resolved Problem 11/01/2018 [facility] HDL Resolved Problem 11/01/2018 [facility], [facility]ated [facility] HTN (Confirmed) Resolved Problem 11/01/2018 [facility] Hyperlipidemia Active [facility] 11/01/2018 [facility] Hypertension Active Problem 11/01/2018 [facility] Lumbar Active Problem 11/01/2018 [facility] radiculopathy Neuro Memory loss Active Problem 11/01/2018 [facility] Tremor Active Problem 11/01/2018 [facility] Cerebrovascular Resolved Problem 12/12/2018 [facility] accident Neuro (disorder) Dementia Active Problem 12/12/2018 [facility] (disorder) Neuro Depressive Active Problem 12/12/2018 [facility] disorder Neuro (disorder) Diabetes mellitus Active Problem 12/12/2018 [facility] type 2 (disorder) Neuro Diverticulitis Resolved Problem 12/12/2018 [facility] (disorder) Neuro 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/12/2018 [facility] disorder, systemic Neuro arterial (disorder) Hyperlipidemia Active Problem 12/12/2018 [facility] (disorder) Neuro Lumbar Active Problem 12/12/2018 [facility] radiculopathy Neuro (disorder) Memory impairment Active Problem 12/12/2018 [facility] (finding) Neuro Tremor (finding) [facility] 12[facility]12/2018 [facility] ALTERED MENTAL Active [facility] Medications Medication Details Route Status Patient Ordering Order Source Instructions Provider Date Donepezil 5 mg=1 tab, Active [facility] hydrochloride 5 PO, 019 Neuro MG Oral Tablet Bedtime, # [Aricept] 30 tab, 3 Refill(s), Pharmacy: [facility] [id number] Amlodipine 10 MG 10 mg=1 Active [facility] [...] 019 Neuro Omeprazole 40 mg, No Longer [facility] Route: PO, Active 014 Medical Drug form: Center DRC, Daily, Dosing Weight 81.818, kg, Start date: 02/19/14 9:00:00, Duration: 30 day, Stop date: 03/20/14 9:00:00 Losartan 25 mg, 1 No Longer [facility] tab, Route: Active 014 Medical PO, Drug Center form: TAB, Daily, Dosing Weight 81.818, kg, Start date: 02/19/14 9:00:00, Duration: 30 day, Stop date: 03/20/14 9:00:00Note s: (Same as: Chad) Zetia 10 mg, 1 No Longer [facility] tab, Route: Active 014 Medical PO, Drug Center form: TAB, Daily, Dosing Weight 81.818, kg, Start date: 02/19/14 9:00:00, Duration: 30 day, Stop date: 03/20/14 9:00:00Note s: (Same as: Zetia) Protonix 40 mg, 1 No Longer [facility] tab, Route: Active 014 Medical PO, Drug Center form: ECTAB, Before Breakfast, Start date: 02/19/14 7:30:00, Duration: 30 day, Stop date: 03/20/14 7:30:00Note s: Tablet should not be chewed or crushed. (Same as: Protonix) gabapentin 300 MG 300 mg, 1 No Longer [facility] Oral Capsule cap, Route: Active 014 Medical [Neurontin] PO, Drug Center form: CAP, Q8H, Dosing Weight 81.818, kg, Start date: 02/19/14 0:00:00, Duration: 30 day, Stop date: 03/20/14 16:00:00Not es: (Same as: Neurontin) Simvastatin 40 mg, 1 Inactive [facility] tab, Route: 014 Medical PO, Drug Center form: TAB, Bedtime, Dosing Weight 81.818, kg, Start date: 02/18/14 21:00:00, Duration: 30 day, Stop date: 03/19/14 21:00:00Not es: (Same as: Zocor) Restoril 30 mg, 2 Inactive [facility] cap, Route: 014 Medical PO, Drug Center form: CAP, Bedtime, PRN Sleep, Start date: 02/18/14 18:21:00, Duration: 30 day, Stop date: 03/20/14 18:20:00Not es: (Same As: Restoril) Bentyl 20 mg, 1 Inactive [facility] tab, Route: 014 Medical PO, Drug Center form: TAB, Q6H, Dosing Weight 81.818, kg, PRN Other -See Comment, Start date: 02/18/14 17:55:00, Stop date: 03/20/14 17:54:00, irritable bowelNotes: (Same as: Bentyl) Metoclopramide 10 10 mg, 1 Inactive [facility] MG Oral Tablet tab, Route: 014 Medical [Reglan] PO, Drug Center form: TAB, QID-Before Meals, Dosing Weight 81.818, kg, PRN Nausea, Start date: 02/18/14 17:54:00, Stop date: 03/20/14 17:53:00Not es: (Same as: Reglan) Take 30 min before meals Lorazepam 1 mg, 1 Inactive [facility] tab, Route: 014 Medical PO, Drug Center form: TAB, BID, Dosing Weight 81.818, kg, PRN as needed for anxiety, Start date: 02/18/14 17:53:00, Stop date: 03/20/14 17:52:00Not es: (Same as: Ativan) Lunesta 3 mg, Inactive [facility] Route: PO, 014 Medical Drug form: Center TAB, Bedtime, Dosing Weight 81.818, kg, PRN as needed for insomnia, Start date: 02/18/14 17:53:00, Stop date: 03/20/14 17:52:00 meclizine 25 mg 25 mg=1 On Hold [facility] oral tablet tab, PO, 014 Medical TID, for Center dizziness, # 60 tab, 0 Refill(s) losartan 50 mg 50 mg=1 On Hold [facility] oral tablet tab, PO, 014 Medical Daily, # 30 Center tab, 0 Refill(s) omeprazole 40 mg 40 mg=1 On Hold [facility] oral delayed cap, PO, 014 Medical release capsule Daily, # 30 Center cap, 0 Refill(s) promethazine 12.5 12.5 mg=1 On Hold [facility] mg oral tablet tab, PO, 014 Medical Q4H, Nausea Center & Vomiting, # 60 tab, 0 Refill(s) ezetimibe 10 MG 10 mg=1 On Hold [facility] Oral Tablet tab, PO, 014 Medical [Zetia] Daily, # 30 Center tab, 0 Refill(s) gabapentin 300 MG 300 mg=1 On Hold [facility] Oral Capsule cap, PO, 014 Medical [Neurontin] TID, # 90 Center cap, 0 Refill(s) clopidogrel 75 mg, 1 Inactive [facility] tab, Route: 014 Medical PO, Drug Center form: TAB, Daily, Dosing Weight 81.818, kg, Start date: 02/18/14 9:00:00, Duration: 30 day, Stop date: 03/19/14 9:00:00Note s: (Same As: Plavix) Aspirin 325 MG 325 mg, 1 Inactive [facility] Enteric Coated tab, Route: 014 Medical Tablet PO, Drug Center form: ECTAB, Daily, Dosing Weight 81.818, kg, Start date: 02/18/14 9:00:00, Duration: 30 day, Stop date: 03/19/14 9:00:00Note s: (Do Not Crush) Do not crush or chew. Keppra 500 mg, 1 Inactive [facility] tab, Route: 014 Medical PO, Drug Center form: TAB, Q12H, Dosing Weight 81.818, kg, Priority: NOW, Start date: 02/18/14 4:30:00, Duration: 30 day, Stop date: 03/19/14 21:00:00Not es: (Same as:Keppra) tramadol 50 mg, 1 Inactive [facility] hydrochloride 50 tab, Route: 014 Medical MG Oral Tablet PO, Drug Center form: TAB, Q6H, Dosing Weight 81.818, kg, PRN Pain, Start date: 02/18/14 4:12:00, Duration: 30 day, Stop date: 03/20/14 4:11:00Note s: Not to exceed 400mg/day. (Same As: Ultram) Lorazepam 0.5 mg, Inactive [facility] 0.25 mL, 014 Medical Route: IV, Center Drug form: INJ, ONCE, Dosing Weight 81.818, kg, Start date: 02/18/14 1:30:00, Stop date: 02/18/14 1:30:00Note s: (Same as: Ativan) Loratadine 10 mg, 1 Inactive [facility] tab, Route: 014 Medical PO, Drug Center form: TAB, Daily, Dosing Weight 81.818, kg, PRN Allergies, Start date: 02/18/14 0:28:00, Duration: 30 day, Stop date: 03/20/14 0:27:00Note s: 1 hr before meals (Same as: Claritin) Ondansetron 4 mg, Inactive [facility] Route: IVP, 014 Medical Drug form: Center INJ, ONCE, Dosing Weight 81.818, kg, Priority: STAT, Start date: 02/17/14 23:19:00, Stop date: 02/17/14 23:19:00 Benadryl 25 mg, Inactive [facility] Route: IVP, 014 Medical ONCE, Center Dosing Weight 81.818, kg, PRN Itching, Start date: 02/17/14 22:50:00 Meclizine 0 Refill(s) No Longer [address] Losartan 0 Refill(s) No Longer [address] Promethazine 0 Refill(s) No Longer [address] Zetia 0 Refill(s) No Longer [address] Rogaine 0 Refill(s) No Longer [address] Lunesta 0 Refill(s) No Longer [address] Lipitor 80 mg, 1 No Longer [facility] tab, Route: Active 014 Medical PO, Drug Center form: TAB, Bedtime, Dosing Weight 81.818, kg, Start date: 02/17/14 21:00:00, Duration: 30 day, Stop date: 03/18/14 21:00:00Not es: Same as Lipitor Saline Flush 0.9% 10 ml, No Longer [facility] Route: IVP, Active 014 Medical Drug Form: [place] INJ, Dosing Weight 81.818, kg, Q12H, Start date: 02/17/14 21:00:00, Duration: 30 day, Stop date: 03/19/14 9:00:00Note s: (Same as: BD Posiflush) Famotidine 20 mg, 1 No Longer [facility] tab, Route: Active 014 Medical PO, Drug Center form: TAB, Q12H, Dosing Weight 81.818, kg, Start date: 02/17/14 21:00:00, Duration: 30 day, Stop date: 03/19/14 9:00:00Note s: (Same as: Pepcid) Tylenol 650 mg, Inactive [facility] Route: PO, 014 Medical Drug form: [place] TAB, ONCE, Dosing Weight 81.818, kg, Priority: STAT, Start date: 02/17/14 18:43:00, Stop date: 02/17/14 18:43:00 Dicyclomine 20 mg=1 On Hold [facility] [place] Hydrochloride 20 tab, PO, 014 Medical [...] tablet tab, PO, Active 014 Medical BID [place] simvastatin 40 mg 40 mg=1 On Hold [place] oral tablet tab, PO, 014 Medical Daily, # 30 Center tab, 0 Refill(s) montelukast 10 MG 10 mg=1 On Hold [place] Oral Tablet tab, PO, 014 Medical [Singulair] QAM, as Center needed for allergies (in the Spring only), # 30 tab, 0 Refill(s) metoprolol 50 mg=1 On Hold [facility] tartrate 50 mg tab, PO, 014 Medical oral tablet BID, # 180 Center tab, 0 Refill(s) LORazepam 1 mg 1 mg=1 tab, On Hold [place] oral tablet PO, BID, 014 [facility] Anxiety [place] Zofran 4 mg, Inactive [facility] Route: IVP, 014 Medical Drug form: Center INJ, ONCE, Dosing Weight 81.818, kg, Priority: STAT, Start date: 02/17/14 16:53:00, Stop date: 02/17/14 16:53:00 heparin, porcine 5,000 unit, No Longer [place] 1 mL, Active 014 Medical Route: [place] SUB-Q, Drug form: INJ, Q8H, Dosing Weight 81.818, kg, (For patients weighing Notes: porcine heparin Saline Flush 0.9% 10 ml, Inactive [facility] Route: IVP, 014 Medical Drug Form: Center INJ, Dosing Weight 81.818, kg, PRN, PRN Line Flush, Start date: 02/17/14 15:43:00, Duration: 30 day, Stop date: 03/19/14 14:42:00 Labetalol 10 mg, 2 No Longer [facility] mL, Route: Active 014 Medical IVP, Drug Center form: INJ, Q10Min, Dosing Weight 81.818, kg, PRN Hypertensio n, Start date: 02/17/14 15:43:00, Stop date: 03/20/14 0:41:00, For SBP > 190mmHg and/or DBP > 105mmHg Acetaminophen 650 mg, 2 No Longer [facility] tab, Route: Active 014 Medical PO, Drug Center form: TAB, Q4H, Dosing Weight 81.818, kg, PRN Pain 1-3/Temp > 99.5 F, Start date: 02/17/14 15:43:00, Duration: 30 day, Stop date: 03/19/14 15:42:00Not es: Do not exceed 4 gm/day. (Same as: Tylenol) Sodium Chloride 1,000 mL, No Longer [facility] 0.154 MEQ/ML Rate: 100 Active [facility] Medical Injectable ml/hr, [place] Solution Infuse over: 10 hr, Route: IV, Dosing Weight 81.818 kg, Total Volume: 1,000, Start date: 02/17/14 15:43:00, Duration: 30 day, Stop date: 03/19/14 15:42:00 Plavix 300 mg, 1 Inactive [facility] tab, Route: 014 Medical PO, Drug Center form: TAB, ONCE, Dosing Weight 81.818, kg, Priority: STAT, Start date: 02/17/14 15:42:00, Stop date: 02/17/14 15:42:00Not es: ( Same as: Plavix) aspirin 324 mg, 4 Inactive [facility] tab, Route: 014 Medical CHEW, Drug Center form: CHEWTAB, ONCE, Dosing Weight 81.818, kg, Priority: STAT, Start date: 02/17/14 15:42:00, Stop date: 02/17/14 15:42:00Not es: Take with food. Sodium Chloride 1,000 mL, Inactive [facility] 0.154 MEQ/ML 1,000 014 Medical Injectable ml/hr, [place] Solution Infuse Over: 1 hr, Route: IV, 1,000, Drug form: INJ, ONCE, Priority: STAT, Dosing Weight 81.818 kg, Start date: 02/17/14 15:16:00, Duration: 1 doses or times, Stop date: 02/17/14 15:16:00 iodixanol 120 mL, Inactive [facility] Route: IVP, 014 Medical Drug Form: [place] SOLN, Dosing Weight 81.818, kg, ONCALL, STAT, Start date: 02/17/14 13:55:00, Duration: 1 doses or times, Dose=2.2ml/ kg, Max fque=449eq -- "To be infused by Radiology Staff ONLY"Specia l Instruction s: Dose=2.2ml/ kg, Max bnzx=887pn -- "To be infused by Radiology Staff ONLY" iodixanol 120 mL, Inactive [facility] Route: IVP, 014 Medical Drug Form: [place] SOLN, Dosing Weight 81.818, kg, ONCALL, STAT, Start date: 02/17/14 13:51:00, Duration: 1 doses or times, Dose=2.2ml/ kg, Max ejte=728en -- "To be infused by Radiology Staff ONLY"Specia l Instruction s: Dose=2.2ml/ kg, Max utcm=247mm -- "To be infused by Radiology Staff ONLY" Sodium Chloride 1,000 mL, Inactive [facility] 0.154 MEQ/ML 1,000 014 Medical Injectable ml/hr, [place] Solution Infuse Over: 1 hr, Route: IV, 1,000, Drug form: INJ, ONCE, Priority: STAT, Dosing Weight 81.818 kg, Start date: 02/17/14 12:51:00, Duration: 1 doses or times, Stop date: 02/17/14 12:51:00 Saline Flush 0.9% 10 mL, No Longer [facility] Route: IVP, Active 014 Medical Drug Form: [place] INJ, Dosing Weight 81.818, kg, PRN, PRN [...] SPECIAL Hgb A1C 6.6 <=5.6 % 02/18 [facility] CHEMISTRY [facility] LIPIDS CHD Risk 3.80 3.90 - 02/18 [facility] 5.80 [facility] LIPIDS Chol 167 <=199 02/18 [facility] mg/dL [facility] LIPIDS HDL 44 >=61 mg/dL 02/18 [facility] LIPIDS Trig 182 <=149 02/18 [facility] mg/dL [facility] LIPIDS VLDL 36 02/18 [facility] LIPIDS LDL 87 <=99 mg/dL 02/18 [facility] (Calculated) [facility] ANEMIA % Satur Fe 34 12 - 57 02/18 [facility] STUDY [facility] ANEMIA TIBC 342 228 - 428 02/18 [facility] STUDY [facility] ANEMIA UIBC 227 110 - 370 02/18 [facility] ANEMIA Iron 115 30 - 160 02/18 [facility] ANEMIA Ferritin Lvl 97 5 - 204 02/18 [facility] CHEM PANEL Lactic Acid 1.9 0.5 - 2.2 02/17 [facility] Lvl [facility] URINE AND UA Mucus None Seen None Seen 02/17 [facility] STOOL (02/17/14 2:18 PM) [facility] URINE AND UA Sq Epi Few /LPF Few /LPF 02/17 [facility] STOOL [facility] URINE AND UA RBC None Seen 0 - 2 02/17 [facility] STOOL (02/17/14 2:18 PM) [facility] URINE AND UA Bacteria Occasional None Seen 02/17 [facility] STOOL /HPF /HPF [facility] URINE AND UA WBC 0-2 /HPF None Seen 02/17 [facility] STOOL /HPF [facility] URINE AND UA Spec Grav 1.020 <=1.030 02/17 [facility] STOOL [facility] URINE AND UA Color Yellow Yellow 02/17 [facility] STOOL *NA* /2014 Medical (02/17/14 2:18 PM) Center URINE AND UA Turbidity Clear Clear 02/17 [facility] (02/17/14 2:18 PM) [facility] URINE AND UA Leuk Est Negative Negative 02/17 [facility] (02/17/14 2:18 PM) [facility] URINE AND UA Nitrite Negative Negative 02/17 [facility] (02/17/14 2:18 PM) [facility] URINE AND UA 0.2 0.1 - 1.0 02/17 [facility] Urobilinogen /2013 [facility] URINE AND UA Blood Negative Negative 02/17 [facility] (02/17/14 2:18 PM) [facility] URINE AND UA Bili Negative Negative 02/17 [facility] *NA* [facility] (02/17/14 2:18 PM) [place] URINE AND UA Glucose Negative Negative 02/17 [facility] (02/17/14 2:18 PM) [facility] URINE AND UA Ketones Negative Negative 02/17 [facility] *NA* [facility] (02/17/14 2:18 PM) [place] URINE AND UA Protein Negative Negative 02/17 [facility] (02/17/14 2:18 PM) [facility] URINE AND UA pH 6.5 5.0 - 8.0 02/17 [facility] STOOL [facility] CARDIAC CK MB 3.4 0.5 - 3.6 02/17 [facility] ENZYMES [facility] CARDIAC Troponin-I 0.07 0.00 - 02/17 [facility] ENZYMES 0.40 [facility] CARDIAC Total CK 123 12 - 191 02/17 [facility] ENZYMES [facility] CARDIAC CK MB Index 2.8 0.0 - 2.5 02/17 [facility] ENZYMES [facility] CHEM PANEL eGFR 02/17 <sup>1</sup>R esult Medical [...] PANEL Creatinine 1.4 0.5 - 1.4 02/17 [facility] l [facility] CHEM PANEL Glucose Lvl 211 70 - 99 02/17 <sup>2</sup>I nterpretive Medical Data: Adult Center reference range values reflect the clinical guidelines
of the [place] [employer]. CHEM PANEL BUN 13 7 - 22 02/17 [facility] CHEM PANEL B/C Ratio 9 6 - 25 02/17 [facility] CHEM PANEL AGAP 16.8 10.0 - 02/17 [facility] 20. [facility] CHEM PANEL Calcium Lvl 8.8 8.5 - 10.5 02/17 [facility] CHEM PANEL CO2 23 24 - 32 02/17 [facility] CHEM PANEL Chloride Lvl 105 95 - 109 02/17 [facility] CHEM PANEL Sodium Lvl 141 135 - 145 02/17 [facility] CHEM PANEL Potassium Lvl 3.8 3.5 - 5.1 02/17 [facility] CHEM PANEL A/G Ratio 1.0 0.7 - 1.6 02/17 [facility] CHEM PANEL Total Protein 7.0 6.4 - 8.4 02/17 [facility] CHEM PANEL Albumin Lvl 3.5 3.5 - 5.0 02/17 [facility] CHEM PANEL AST 24 0 - 37 02/17 [facility] CHEM PANEL ALT 28 0 - 65 02/17 [facility] CHEM PANEL Bili Total 0.6 0.2 - 1.3 02/17 [facility] CHEM PANEL Alk Phos 94 39 - 136 02/17 [facility] CHEM PANEL Globulin 3.5 2.0 - 4.0 02/17 [facility] CHEM PANEL Lactic Acid 4.9 0.5 - 2.2 02/17 <sup>3</sup>R [facility] Lvl esult Medical Comment: Center Critical Result(s) called to Dr. Stefanie Tamez at 02/17/2014 12:[address] Read back OK. HEMATOLOGY INR 0.95 0.85 - 02/17 <sup>4</sup>I [facility] 1.17 nterpretive Medical Data: Center RECOMMENDED RANGES FOR PROTIME INR:
2.0-3.0 for most medical and surgical thromboemboli c states.
2.5-3.5 for artificial heart valves and recurrent embolism.<br/ >
INR SHOULD BE USED ONLY FOR PATIENTS ON STABLE ANTICOAGULANT THERAPY. HEMATOLOGY PT 12.7 12.0 - 02/17 [facility] 14.7 [facility] HEMATOLOGY Platelet 205 133 - 450 02/17 [facility] HEMATOLOGY MCH 29.0 27.0 - 02/17 [facility] 31.0 [facility] HEMATOLOGY MCHC 33.7 32.0 - 02/17 [facility] 36.0 /2013 [facility] HEMATOLOGY RDW 13.6 11.5 - 02/17 [facility] 14.5 /2013 [facility] HEMATOLOGY Hct 51.8 36.0 - 02/17 [facility] 48.0 /2013 [facility] HEMATOLOGY MCV 86.2 80.0 - 02/17 [facility] 98.0 /2013 [facility] HEMATOLOGY Hgb 17.4 12.0 - 02/17 [facility] 16.0 /2013 [facility] HEMATOLOGY RBC 6.01 4.20 - 02/17 [facility] 5.40 /2013 [facility] HEMATOLOGY MPV 11.5 7.4 - 10.4 02/17 [facility] HEMATOLOGY WBC 14.1 3.7 - 10.4 02/17 [facility] HEMATOLOGY PTT 21.8 22.9 - 02/17 <sup>5</sup>I [facility] 35.8 nterpretive Medical Data: Heparin Center Therapeutic Range: 57 - 92 Seconds HEMATOLOGY Plt Morph Normal 02/17 [facility] (02/17/14 12:09 PM) [facility] HEMATOLOGY RBC Morph Normal 02/17 [facility] (02/17/14 12:09 PM) /2013 [facility] HEMATOLOGY Eosinophils # 0.1 0.0 - 0.5 02/17 [facility] HEMATOLOGY Basophils # 0.1 0.0 - 0.2 02/17 [facility] HEMATOLOGY Segs-Bands # 10.8 1.5 - 8.1 02/17 [facility] HEMATOLOGY Monocytes # 0.6 0.0 - 0.8 02/17 [facility] HEMATOLOGY Lymphocytes # 2.5 1.0 - 5.5 02/17 [facility] HEMATOLOGY Lymphocytes 17.5 20.0 - 02/17 [place] 40.0 [facility] HEMATOLOGY Segs 77.0 45.0 - 02/17 [place] 75.0 [facility] HEMATOLOGY Monocytes 4.3 2.0 - 12.0 02/17 [facility] HEMATOLOGY Basophils 0.4 0.0 - 1.0 02/17 [facility] HEMATOLOGY Eosinophils 0.8 0.0 - 4.0 02/17 [facility] Pathology Reports No Data Provided for This Section Diagnostic Reports No Data Provided for This Section Consultation Notes No Data Provided for This Section Discharge Summaries No Data Provided for This Section History and Physicals No Data Provided for This Section Vital Signs Vital Sign Value Date Comments Source Weight 55.455 10/29/2018 [facility] Neuro BMI Calculated 22.36 10/29/2018 [facility] Neuro Height 157.48 cm 10/29/2018 [facility] Neuro Systolic (mm Hg) 136 10/29/2018 [facility] Neuro Diastolic (mm Hg) 86 10/29/2018 [facility] Neuro Respitory Rate 16 10/29/2018 [facility] Neuro Heart Rate 71 10/29/2018 [facility] Neuro Weight 57.273 09/27/2018 [facility] Neuro BMI Calculated 23.86 09/27/2018 [facility] Neuro Height 154.94 cm 09/27/2018 [facility] Neuro Respitory Rate 16 09/27/2018 [facility] Neuro Systolic (mm Hg) 153 09/27/2018 [facility] Neuro Diastolic (mm Hg) 85 09/27/2018 [facility] Neuro Heart Rate 60 09/27/2018 [facility] Neuro Systolic (mm Hg) 195 02/18/2014 [facility] Diastolic (mm Hg) 92 02/18/2014 [facility] Respitory Rate 18 02/18/2014 [facility] Systolic (mm Hg) 159 02/18/2014 [facility] Diastolic (mm Hg) 91 02/18/2014 [facility] Respitory Rate 27 02/18/2014 [facility] Systolic (mm Hg) 144 02/18/2014 [facility] Diastolic (mm Hg) 77 02/18/2014 [facility] Respitory Rate 27 02/18/2014 [facility] Temperature Oral (F) 99.5 F 02/18/2014 [facility] Height 172.72 cm 02/17/2014 [facility] BMI Calculated 27.43 02/17/2014 [facility] Weight 81.818 02/17/2014 [facility] Heart Rate 120 02/17/2014 [facility] Encounters Location Location Encounter Encounter Reason Attending ADM DC Status Source Details Type Number For Provider Date Date Visit [facility] [id number] [place] 02/17 02/19 [facility] /2013 [facility] Outpatient [id number] Oscar 09/27 09/28 [facility] Neurology [facility] /2018 [facility] [place] Outpatient [id number] Oscar 10/29 Active [facility] MNA Outpatient [id number] Oscar 10/29 10/30 [facility] Neurology [facility] /2018 [facility] [place] Outpatient [id number] Oscar 12/10 Active [facility] [address] [place] [address] MNA Ambulatory [id number] Oscar 12/10 12/10 [facility] Neurology Pre-Reg [facility] [place] Procedures Procedure Code Date Perfomer Comments Source Back fusion [id number] [facility] Assessment and Plan Assessment and Plan Date Source Extracted from:Title: Stroke Fellow H/P 02/19/2014 [facility] Author: Robert Martinez MD Date: 02/17/14 STROKE TEAM / NEUROLOGY - HISTORY AND PHYSICAL Attending of Record: Bowen Betancourtle Patient Name: Vernell, Female (Josephine Acosta is real name) Date of Admission: 02/17/14 Requesting Physician/Service: EM CC: Lt hemiparesis and syncope HISTORY OF PRESENT ILLNESS: 68 yo RH female with a h/o HTN, prior stroke in 2005 with unknown etiology and with no residual deficits (presenting sx was left hemiparesis), renal malignant tumor resected in 2004, who is brought to ER by [facility] after her witnessed a syncopal episode. Patient [...] left side. 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 She is otherwise fully independent [...] son in his 40s, hypertension, father of RI, mother of lung cancer. SOCIAL HISTORY: The [...] and vibration throughout. Coordination: no dysmetria on [id number]. Reflexes: R Biceps 2+, Triceps 2+, Brachioradialis 2+, Patella 2+, Ankle 2+. L Biceps 2+, Triceps 2+, Brachioradialis 2+, Patella 2+, Ankle 2+. Toes downgoing bilaterally. Gait: not tested. NIH Stroke Scale (NIHSS) 1a. Level of Consciousness; 0-alert 1-drowsy 2-stupor 3-comatose 0 1b. LOC Questions month and age; 0-both 1-one 2-neither 1 (said she was 62) 1c. LOC Commands open/close eyes, sql ssrs ssis developer/release non-paretic hand; 0-both 1-one 2-neither 𗘍 0 2. Best Gaze; 0-nl 1-partial 2-forced gaze 0 3. Visual Quesada; 0-No visual loss. 1-Partial hemianopia 2-Complete 3- Bilateral ㉞0 4. Facial Palsy; 0-none 1-minor 2-partial 3-complete 0 5. Motor - R arm; 0-No drift 1-Drift 2-Some antigravity 3-No antigravity 4-No movement Ό 0 6. Motor - R leg; 0-No drift 1-Drift 2-Some antigravity 3-No antigravity 4-No movement 𓃫 0 7. Motor - L arm; 0-No drift 1-Drift 2-Some antigravity 3-No antigravity 4-No movement ⎁ 0 8. Motor - L leg; 0-No drift 1-Drift 2-Some antigravity 3-No antigravity 4-No movement 𐀮 0 9. Limb Ataxia; 0 absent 1 - 1limb 2 - 2 limbs 0 10. Sensory; 0-nl 1-partial loss 2-dense loss 0 11. Best Language; 0-nl 1-mild/mod 2-severe 3-mute 0 12. Dysarthria; 0-nl 1-mild/mod 2-severe x-untestable 0 13. 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 - Laterally projecting 3 [...] symptomatic intracranial atherosclerosis as outlined in the [facility] protocol. DIFFERENTIAL DIAGNOSIS TIA vs. seizure vs. syncope. PLAN - Admit to stroke unit. - ASA 325mg daily and Plavix load (300 mg) was given in the ER. Patient will be maintained on ASA 325 and Plavix 75 for three months per the [facility] protocol. - Atorvastatin 80mg daily has been ordered. - TTE to evaluate for cardiac source of embolus. - Routine EEG - Stroke labs: fasting lipid panel and hemoglobin A1c. - IVNS 125cc/hr. - Permissive hypertension. - Treat fevers and blood sugars aggressively. - PT/OT/SHIP CARPENTER consults - rehab assessments have been ordered. [...] to prevent stroke has also been emphasized A. Aleja Martinez MD Vascular Neurology fellow MSO# [id number] Pager# [phone] STROKE STAFF I have personally evaluated the [...] most evident in the left MCA, bilateral group managing director and basilar artery. Laterally projecting 3 mm [...] cerebral hypoperfusion 401.9, HTN, malignant 288.6, leukocytosis [id number] Plan of Care No Data Provided for This Section Social History Social History Date Source Social History TypeResponse 02/18/2014 [facility] Substance Abuse Use: None Sexual Sexually active: No Exercise Exercise type: Walking, Exercise type: Yoga Employment/School 1 Alcohol Use: Never Smoking Status Never smoker, Exposure to Tobacco Smoke None, Cigarette Smoking Last 365 Days No, Reg Smoking Cessation Counseling No 1retried Social History TypeResponse 02/18/2014 [facility] Never Employment/School 1, 2 Exercise Exercise duration: 30. Exercise type: Walking, Yoga. Sexual Sexually active: No. Substance Abuse Use: None. Smoking Status Never smoker; Exposure to Tobacco Smoke None; Cigarette Smoking Last 365 Days No; Reg Smoking Cessation Counseling No entered on: 10/29/18 1may release medical records to: Edna Pate(POA), Cristela Dyer(Sister )2retried Family History No Data Provided for This Section Advance Directives No Data Provided for This Section Functional Status No Data Provided for This Section
--- OUTSIDE RECORDS SUMMARY | 2018-12-29 20:03 | XMS REPORT | Summary of Care ---
:1945 Author Organization [facility] Address [address] [place] [address]- phone Encounter HQ Encntr_alias(FIN) [id number] Date(s): 12/10/18 - 12/10/18 [facility] [address] [place] [address]- [phone] Attending Physician: Oscar Ceballos MD Referring Physician: Lorraine Donnelly MD Vital Signs No data available for this section Problem List Condition Effective Dates Status Health Status Informant CVA (cerebral vascular Resolved accident)(Confirmed) Dementia(Confirmed) Active Depression(Confirmed) Active Diabetes mellitus type II(Confirmed) Active Diverticulitis(Confirmed) Resolved HDL(Confirmed) Resolved HTN (hypertension)(Confirmed) Resolved Hyperlipidemia(Confirmed) Active Hypertension(Confirmed) Active Lumbar radiculopathy(Confirmed) Active Memory loss(Confirmed) Active Tremor(Confirmed) Active Allergies, Adverse Reactions, Alerts Substance Reaction Severity Status codeine Active penicillin Active Medications No data available for this section Results No data available for this section Immunizations No data available for this section Procedures Procedure Date Related Diagnosis Body Site Status Back fusion Completed Social History Social History Type Response Alcohol Never Employment/School 1, 2 Exercise Exercise duration: 30. Exercise type: Walking, Yoga. Sexual Sexually active: No. Substance Abuse Use: None. Smoking Status Never smoker; Exposure to Tobacco Smoke None; Cigarette Smoking Last 365 Days No; Reg Smoking Cessation Counseling No entered on: 10/29/18 1may release medical records to: Edna Pate(POA), Cristela Roman Dyer(Sister) 2retried Assessment and Plan No data available for this section
--- NOTE | 2018-12-29 20:27 | RAD REPORT ---
EXAM DESCRIPTION: CT - Ct Stroke Brain Wo Cont - 12/29/2018 8:18 pm CLINICAL HISTORY: SLURRED SPEECH Headache, drowsiness, CVA symptomology COMPARISON: Head Brain Wo Cont dated 02/19/2018; Head Brain Wo Cont dated 05/30/2017 TECHNIQUE: All CT scans are performed using dose optimization technique as appropriate and may inclu de automated exposure control or mA/KV adjustment according to patient size. FINDINGS: No intracranial hemorrhage, hydrocephalus or extra-axial fluid collection.Moderate general ized brain atrophy is present with moderate periventricular and deep white matter chronic microvascul ar ischemic changes.No areas of brain edema or evidence of midline shift. The paranasal sinuses and mastoids are clear. The calvarium is intact. Vertebral atherosclerosis. IMPRESSION: No acute intracranial abnormality. The findings were discussed with Dr. Lugo On 12/29/2018 at 8:20 p.m. by telephone.
[2018-12-29 20:45] LABS: Absolute Lymphocytes (CBC) 2.8 K/uL (0.7-4.9); Basophils % 0.9 % (0-1.3); Hematocrit 39.3 % (36.0-45.0); Lymphocytes % 32.5 % (15.3-44.8); MPV 9.7 fL (7.6-11.3); RBC Red Blood Cell Count 4.31 M/uL (3.86-4.86)
[2018-12-29 20:55] LABS: Protime INR 0.96
--- NOTE | 2018-12-29 20:58 | ER ---
Nurse's Notes [facility] Name: Amber Acosta Age: 73 yrs Sex: Female : 1945 Arrival Date: 12/29/2018 Time: 20:00 Bed 28 Private MD: Lorraine Donnelly Diagnosis: Transient cerebral ischemic attacks and related syndromes Presentation: 12/29 20:02 Presenting complaint: Patient states: she has been having slurred speech intermittently bb x 1 hour pt's friend says she will be talking and then she just does not make any sense, pt has had stroke in the past. Pt is also c/o migraine for several days. Transition of care: patient was not received from another setting of care. No acute neurological deficit is noted. Onset of symptoms was December 29, 2018 at 19:00. Risk Assessment: Do you want to hurt yourself or someone else? Patient reports no desire to harm self or others. Initial Sepsis Screen: Does the patient meet any 2 criteria? No. Patient's initial sepsis screen is negative. Does the patient have a suspected source of infection? No. Patient's initial sepsis screen is negative. Care prior to arrival: None. 20:02 Method Of Arrival: Ambulatory bb 20:02 Acuity: IVETTE 2 bb 23:41 Pre-hospital glucose is not applicable to this patient. Triage Assessment: 20:22 The onset of the patients symptoms was December 29, 2018 at 19:00. Pain: Complains of bb pain in head Pain currently is 6 out of 10 on a pain scale. 20:30 Neuro: Reports slurred speech. Stroke Activation: Symptom onset < 3 hours Physician: Stroke Attending; Name: ; Notified At: ; Arrived At: Physician: Chief Stroke Resident; Name: ; Notified At: ; Arrived At: Physician: Stroke Resident; Name: ; Notified At: ; Arrived At: Physician: ED Attending; Name: Birttney; Notified At: 20:02; Arrived At: 20:02 Physician: ED Resident; Name: ; Notified At: ; Arrived At: Historical: - Allergies: 20:20 Bees; bb 20:20 Codeine; bb 20:20 Demerol; bb 20:20 hydrocodone bitartrate; bb 20:20 Levofloxacin; bb 20:20 METRONIDAZOLE; bb 20:20 PENICILLINS; bb 20:20 SHELLFISH; bb 20:20 sulfamethoxazole; bb 20:20 TRIMETHOPRIM; bb 20:20 Wasps; bb - Home Meds: 20:20 amlodipine 10 mg tab 1 tab once daily [Active]; atorvastatin 50mg Oral 1 tab AT NIGHT bb [Active]; donepezil 5 mg Oral TbDL 1 tab once daily [Active]; doxazosin 2 mg Oral tab 1 tab once daily [Active]; Ecotrin 325 mg Oral TbEC 1 tab once daily [Active]; Effexor 3 tabs Oral 75 mg daily [Active]; gabapentin 100 mg Oral cap 3 caps 3 times per day [Active]; lorazepam 1 mg Oral tab 1 tab once daily for Anxiety [Active]; Lunesta 3 mg Oral tab 1 tab once daily [Active]; metformin 500 mg Oral tab 1 tab 2 times per day [Active]; metoprolol tartrate 50 mg Oral tab 1 tab 2 times per day [Active]; pantoprazole 20 mg Oral TbEC 1 tab once daily [Active]; - PMHx: 20:20 Alzheimers; Anxiety; CAD; Depression; Diabetes - NIDDM; GERD; High Cholesterol; bb Hypertension; kidney cancer; Migraines; - PSHx: 20:20 Knee surgery; Hysterectomy; bb - Immunization history:: Adult Immunizations up to date. - Social history:: Smoking status: Patient/guardian denies using tobacco. - Ebola Screening: : No symptoms or risks identified at this time. Screenin:30 Abuse screen: Denies threats or abuse. Denies injuries from another. Nutritional wh screening: No deficits noted. Tuberculosis screening: No symptoms or risk factors identified. Fall Risk None identified. Assessment: 20:30 VAN Scoring: Arm Drift: Patients demonstrates NO arm weakness. Patient is VAN Negative. wh Visual Disturbance: No visual disturbance noted. Aphasia: No aphasia noted. Neglect: No neglect noted. Patient has been NPO before screening. The patient is alert, and able to follow commands. The patient does not exhibit slurred or garbled speech. The patient is not exhibiting difficulty speaking. The patient is exhibiting difficulty understanding words. The patient is able to swallow own secretions with no drooling or need for suction. Patient tolerated one teaspoon of water. No drooling, immediate coughing, gurgling, or clearing of the throat was noted. The patient tolerated 90mL of water. No drooling, immediate coughing, gurgling, or clearing of the throat was noted. The patient passed the bedside swallow screening. Oral medications may be given as ordered. Contact Physician for further diet orders. Provider notified of bedside swallow screening results: Delma Soni. Neuro: Level of Consciousness is awake, alert, obeys commands, Oriented to person, place, time, situation, Appropriate for age Cnc Service Engineer are equal bilaterally Moves all extremities. 20:40 General: Appears in no apparent distress. Behavior is calm, cooperative, appropriate wh for age. Pain: Denies pain. Neuro: Level of Consciousness is awake, alert, obeys commands, Oriented to person, place, time, situation, Appropriate for age Cnc Service Engineer are equal bilaterally Moves all extremities. Cardiovascular: Heart tones S1 S2. Respiratory: Airway is patent Respiratory effort is even, unlabored, Respiratory pattern is regular, symmetrical. GI: Abdomen is flat, non-distended, Abd is soft and non tender X 4 quads. : No signs and/or symptoms were reported regarding the genitourinary system. EENT: No signs and/or symptoms were reported regarding the EENT system. Derm: Skin is intact, is healthy with good turgor, Skin is pink, warm \T\ dry. normal. Musculoskeletal: Circulation, motion, and sensation intact. 21:50 Reassessment: Patient appears in no apparent distress at this time. No changes from previously documented assessment. Patient and/or family updated on plan of care and expected duration. Pain level reassessed. Patient is alert, oriented x 3, equal unlabored respirations, skin warm/dry/pink. 22:30 Reassessment: Patient appears in no apparent distress at this time. No changes from previously documented assessment. Patient and/or family updated on plan of care and expected duration. Pain level reassessed. Patient is alert, oriented x 3, equal unlabored respirations, skin warm/dry/pink. Pt verbalized wanting to go home, refusing hospitalization. notified MD. 23:42 T-PA (Activase) Screening:. Vital Signs: 20:20 BP 112 / 71; Pulse 72; Resp 16 S; Temp 98.9(O); Pulse Ox 96% on R/A; Weight 56.7 kg bb (R); Height 5 ft. 2 in. (157.48 cm) (R); Pain 6/10; 21:30 BP 100 / 67; Pulse 65; Resp 18; Pulse Ox 100% on R/A; wh 22:30 BP 101 / 62; Pulse 68; Resp 18; Pulse Ox 100% on R/A; wh 20:20 Body Mass Index 22.86 (56.70 kg, 157.48 cm) bb NIH Stroke Scale Scores: 20:30 NIHSS Score: 0 20:51 NIHSS Score: 0 ED Course: 20:00 Patient arrived in ED. mr 20:00 Lorraine Donnelly MD is Private Physician. mr 20:18 Triage completed. bb 20:18 CT completed. Patient tolerated procedure well. Patient moved back from CT. mw3 20:19 Anish Lugo MD is Attending Physician. gs 20:20 CT Stroke Brain w/o Contrast In Process Unspecified. EDMS 20:30 Arm band placed on right wrist. wh 20:30 Patient has correct armband on for positive identification. Placed in gown. Bed in low wh position. Call light in reach. Side rails up X 1. hammer adjuster on. Pulse ox on. NIBP on. 20:42 Delma Soni is Primary Nurse. wh 20:50 Inserted saline lock: 22 gauge in right forearm, using aseptic technique. Blood wh collected. 20:52 Stroke CXR 1 View In Process Unspecified. EDMS 20:55 Andreas Gonzalez DO is Hospitalizing Provider. gs 23:40 No provider procedures requiring assistance completed. IV discontinued, intact, wh bleeding controlled, No redness/swelling at site. Administered Medications: No medications were administered Point of Care Testing: Blood Glucose: 21:00 Blood Glucose: 90 mg/dL; Ranges: Outcome: 20:56 Decision to Hospitalize by Provider. gs 23:44 AMA AMA form signed 23:44 AMA Other Pt left with sister 23:44 Condition: good 23:46 Patient left the ED. NIH Stroke Scale - NIH Stroke Score Date: 12/29/2018 Time: 20:30 Total Score = 0 1a. Level of Consciousness (LOC) - 0(Alert) 1b. Level of Consciousness (LOC) (Year \T\ Age) - 0(Both) 1c. LOC Commands (Open \T\ Closes Eyes/Steam Distribution Supervisor) - 0(Both) 2. Best Gaze (Lateral Gaze Paresis) - 0(Normal) 3. Visual Field Loss - 0(No visual loss) 4. Facial Palsy - 0(Normal) 5a. Left Arm: Motor (10-second hold) - 0(No drift) 5b. Right Arm: Motor (10-second hold) - 0(No drift) 6a. Left Leg: Motor (5-second hold - always test supine) - 0(No drift) 6b. Right Leg: Motor (5-second hold - always test supine) - 0(No drift) 7. Limb Ataxia (finger/nose \T\ heel/hansen - test with eyes open) - 0(Absent) 8. Sensory Loss (pinprick arms/legs/face) - 0(Normal) 9. Best Language: Aphasia (description/naming/reading) - 0(No aphasia) 10. Dysarthria (speech clarity - read or repeat words) - 0(Normal) 11. Extinction and Inattention (visual/tactile/auditory/spatial/personal) - 0(No abnormality) Initials: NIH Stroke Scale - NIH Stroke Score Date: 12/29/2018 Time: 20:51 Total Score = 0 1a. Level of Consciousness (LOC) - 0(Alert) 1b. Level of Consciousness (LOC) (Year \T\ Age) - 0(Both) 1c. LOC Commands (Open \T\ Closes Eyes/Steam Distribution Supervisor) - 0(Both) 2. Best Gaze (Lateral Gaze Paresis) - 0(Normal) 3. Visual Field Loss - 0(No visual loss) 4. Facial Palsy - 0(Normal) 5a. Left Arm: Motor (10-second hold) - 0(No drift) 5b. Right Arm: Motor (10-second hold) - 0(No drift) 6a. Left Leg: Motor (5-second hold - always test supine) - 0(No drift) 6b. Right Leg: Motor (5-second hold - always test supine) - 0(No drift) 7. Limb Ataxia (finger/nose \T\ heel/hansen - test with eyes open) - 0(Absent) 8. Sensory Loss (pinprick arms/legs/face) - 0(Normal) 9. Best Language: Aphasia (description/naming/reading) - 0(No aphasia) 10. Dysarthria (speech clarity - read or repeat words) - 0(Normal) 11. Extinction and Inattention (visual/tactile/auditory/spatial/personal) - 0(No abnormality) Initials: nestor Signatures: Dispatcher [employer] JANEMS Gallardo Reshma mr DonisardChari RN RN bb Habalo, Winsy wh Starr, Gregory, MD MD gs Willis, Michelle mw3 Corrections: (The following items were deleted from the chart) 20:23 20:02 Presenting complaint: Patient states: she has been having slurred speech bb intermittently x 1 hour pt's friend says she will be talking and then she just does not make any sense, pt has had stroke in the past bb
--- NOTE | 2018-12-29 20:58 | EDPHYS ---
Physician Documentation [facility] Name: Amber Acosta Age: 73 yrs Sex: Female : 1945 Arrival Date: 12/29/2018 Time: 20:00 Bed 28 Private MD: Lorraine Donnelly ED Physician Anish Lugo HPI: 12/29 20:51 This 73 yrs old Female presents to ER via Ambulatory with complaints of gs Slurred Speech. 20:51 The patient presents to the emergency department with a speech or higher order brain gs function problem, aphasia, that is marked. Onset: The symptoms/episode began/occurred just prior to arrival, 1.5 hour(s) ago. Context: occurred at home. Associated signs and symptoms: Pertinent positives: altered mental status. Severity of symptoms: At their worst the symptoms were severe in the emergency department the symptoms have resolved and did so just prior to arrival. Patient's baseline: Motor: no deficits, Ambulation: walks without assistance. Current symptoms: Currently, the patient is not experiencing any symptoms, the patient feels back to baseline. The patient has experienced a previous episode. Historical: - Allergies: 20:20 Bees; bb 20:20 Codeine; bb 20:20 Demerol; bb 20:20 hydrocodone bitartrate; bb 20:20 Levofloxacin; bb 20:20 METRONIDAZOLE; bb 20:20 PENICILLINS; bb 20:20 SHELLFISH; bb 20:20 sulfamethoxazole; bb 20:20 TRIMETHOPRIM; bb 20:20 Wasps; bb - Home Meds: 20:20 amlodipine 10 mg tab 1 tab once daily [Active]; atorvastatin 50mg Oral 1 tab AT NIGHT bb [Active]; donepezil 5 mg Oral TbDL 1 tab once daily [Active]; doxazosin 2 mg Oral tab 1 tab once daily [Active]; Ecotrin 325 mg Oral TbEC 1 tab once daily [Active]; Effexor 3 tabs Oral 75 mg daily [Active]; gabapentin 100 mg Oral cap 3 caps 3 times per day [Active]; lorazepam 1 mg Oral tab 1 tab once daily for Anxiety [Active]; Lunesta 3 mg Oral tab 1 tab once daily [Active]; metformin 500 mg Oral tab 1 tab 2 times per day [Active]; metoprolol tartrate 50 mg Oral tab 1 tab 2 times per day [Active]; pantoprazole 20 mg Oral TbEC 1 tab once daily [Active]; - PMHx: 20:20 Alzheimers; Anxiety; CAD; Depression; Diabetes - NIDDM; GERD; High Cholesterol; bb Hypertension; kidney cancer; Migraines; - PSHx: 20:20 Knee surgery; Hysterectomy; bb - Immunization history:: Adult Immunizations up to date. - Social history:: Smoking status: Patient/guardian denies using tobacco. - Ebola Screening: : No symptoms or risks identified at this time. ROS: 20:51 All other systems are negative. gs Exam: 20:51 Head/Face: Normocephalic, atraumatic. Eyes: Pupils equal round and reactive to light, gs extra-ocular motions intact. Lids and lashes normal. Conjunctiva and sclera are non-icteric and not injected. Cornea within normal limits. Periorbital areas with no swelling, redness, or edema. ENT: Nares patent. No nasal discharge, no septal abnormalities noted. Tympanic membranes are normal and external auditory canals are clear. Oropharynx with no redness, swelling, or masses, exudates, or evidence of obstruction, uvula midline. Mucous membranes moist. Neck: Trachea midline, no thyromegaly or masses palpated, and no cervical lymphadenopathy. Supple, full range of motion without nuchal rigidity, or vertebral point tenderness. No Meningismus. Chest/axilla: Normal chest wall appearance and motion. Nontender with no deformity. No lesions are appreciated. Cardiovascular: Regular rate and rhythm with a normal S1 and S2. No gallops, murmurs, or rubs. Normal PMI, no JVD. No pulse deficits. Respiratory: Lungs have equal breath sounds bilaterally, clear to auscultation and percussion. No rales, rhonchi or wheezes noted. No increased work of breathing, no retractions or nasal flaring. Abdomen/GI: Soft, non-tender, with normal bowel sounds. No distension or tympany. No guarding or rebound. No evidence of tenderness throughout. Back: No spinal tenderness. No costovertebral tenderness. Full range of motion. Skin: Warm, dry with normal turgor. Normal color with no rashes, no lesions, and no evidence of cellulitis. MS/ Extremity: Pulses equal, no cyanosis. Neurovascular intact. Full, normal range of motion. Neuro: Awake and alert, GCS 15, oriented to person, place, time, and situation. Cranial nerves II-XII grossly intact. Motor strength 5/5 in all extremities. Sensory grossly intact. Cerebellar exam normal. Normal gait. 20:51 Constitutional: The patient appears alert, awake. 20:51 ECG was reviewed by the Attending Physician. Vital Signs: 20:20 BP 112 / 71; Pulse 72; Resp 16 S; Temp 98.9(O); Pulse Ox 96% on R/A; Weight 56.7 kg bb (R); Height 5 ft. 2 in. (157.48 cm) (R); Pain 6/10; 21:30 BP 100 / 67; Pulse 65; Resp 18; Pulse Ox 100% on R/A; wh 22:30 BP 101 / 62; Pulse 68; Resp 18; Pulse Ox 100% on R/A; wh 20:20 Body Mass Index 22.86 (56.70 kg, 157.48 cm) bb NIH Stroke Scale Scores: 20:30 NIHSS Score: 0 20:51 NIHSS Score: 0 gs MDM: 20:41 Patient medically screened. 20:51 Data reviewed: vital signs, nurses notes, lab test result(s), EKG, radiologic studies. Counseling: I had a detailed discussion with the patient and/or guardian regarding: the historical points, exam findings, and any diagnostic results supporting the discharge/admit diagnosis, the need for further work-up and treatment in the hospital. ED course: no tpa nihss 0. 12/29 20:11 Order name: Basic Metabolic Panel; Complete Time: 21: 12/29 20:11 Order name: CBC with Diff; Complete Time: 21: 12/29 20:11 Order name: Protime (+inr); Complete Time: 21: 12/29 20:11 Order name: Ptt, Activated; Complete Time: 21: 12/29 20:11 Order name: CT Stroke Brain w/o Contrast; Complete Time: 21: 12/29 20:36 Order name: Glucose, Ancillary Testing; Complete Time: 21:07 EDMS 12/29 20:11 Order name: Stroke CXR 1 View; Complete Time: 21:59 12/29 20:11 Order name: EKG; Complete Time: 20:13 12/29 20:11 Order name: Accucheck; Complete Time: 20:42 12/29 20:11 Order name: Cardiac monitoring; Complete Time: 20:42 12/29 20:11 Order name: EKG - Nurse/Tech; Complete Time: 20:42 12/29 20:11 Order name: IV Saline Lock; Complete Time: 20:42 12/29 20:11 Order name: Labs collected and sent; Complete Time: 20:43 12/29 20:11 Order name: NPO; Complete Time: 20:43 12/29 20:11 Order name: O2 Per Protocol; Complete Time: 20:43 12/29 20:11 Order name: O2 Sat Monitoring; Complete Time: 20:43 12/29 20:11 Order name: Stroke Swallow Screen; Complete Time: 20:43 EC:51 Rate is 77 beats/min. Rhythm is regular. UT interval is normal. QRS interval is normal. gs No ST changes noted. Clinical impression: Abnormal EKG without significant change. Interpreted by me. Administered Medications: No medications were administered Point of Care Testing: Blood Glucose: 21:00 Blood Glucose: 90 mg/dL; Ranges: Critical Glucose Levels:Adult <50 mg/dl or >400 mg/dl <40 mg/dl or >180 mg/dl Disposition: 12/29/18 20:56 Hospitalization ordered by Andreas Gonzalez for Inpatient Admission. Preliminary diagnosis is Transient cerebral ischemic attacks and related syndromes. - Bed requested for Telemetry/MedSurg (observation). - Status is Inpatient Admission. - Condition is Stable. - Problem is new. - Symptoms have improved. UTI on Admission? No NIH Stroke Scale - NIH Stroke Score Date: 12/29/2018 Time: 20:30 Total Score = 0 1a. Level of Consciousness (LOC) - 0(Alert) 1b. Level of Consciousness (LOC) (Year \T\ Age) - 0(Both) 1c. LOC Commands (Open \T\ Closes Eyes/Internet Cafe Manager) - 0(Both) 2. Best Gaze (Lateral Gaze Paresis) - 0(Normal) 3. Visual Field Loss - 0(No visual loss) 4. Facial Palsy - 0(Normal) 5a. Left Arm: Motor (10-second hold) - 0(No drift) 5b. Right Arm: Motor (10-second hold) - 0(No drift) 6a. Left Leg: Motor (5-second hold - always test supine) - 0(No drift) 6b. Right Leg: Motor (5-second hold - always test supine) - 0(No drift) 7. Limb Ataxia (finger/nose \T\ heel/hansen - test with eyes open) - 0(Absent) 8. Sensory Loss (pinprick arms/legs/face) - 0(Normal) 9. Best Language: Aphasia (description/naming/reading) - 0(No aphasia) 10. Dysarthria (speech clarity - read or repeat words) - 0(Normal) 11. Extinction and Inattention (visual/tactile/auditory/spatial/personal) - 0(No abnormality) Initials: NIH Stroke Scale - NIH Stroke Score Date: 12/29/2018 Time: 20:51 Total Score = 0 1a. Level of Consciousness (LOC) - 0(Alert) 1b. Level of Consciousness (LOC) (Year \T\ Age) - 0(Both) 1c. LOC Commands (Open \T\ Closes Eyes/Internet Cafe Manager) - 0(Both) 2. Best Gaze (Lateral Gaze Paresis) - 0(Normal) 3. Visual Field Loss - 0(No visual loss) 4. Facial Palsy - 0(Normal) 5a. Left Arm: Motor (10-second hold) - 0(No drift) 5b. Right Arm: Motor (10-second hold) - 0(No drift) 6a. Left Leg: Motor (5-second hold - always test supine) - 0(No drift) 6b. Right Leg: Motor (5-second hold - always test supine) - 0(No drift) 7. Limb Ataxia (finger/nose \T\ heel/hansen - test with eyes open) - 0(Absent) 8. Sensory Loss (pinprick arms/legs/face) - 0(Normal) 9. Best Language: Aphasia (description/naming/reading) - 0(No aphasia) 10. Dysarthria (speech clarity - read or repeat words) - 0(Normal) 11. Extinction and Inattention (visual/tactile/auditory/spatial/personal) - 0(No abnormality) Initials: Signatures: Dispatcher [employer] EDChari Giordano RN RN bb Garcia, Cindy, RN RN cg Habalo, Winsy Anish Lugo MD MD Corrections: (The following items were deleted from the chart) 22:26 20:56 Hospitalization Ordered by Andreas Gonzalez DO for Inpatient Admission. Preliminary diagnosis is Transient cerebral ischemic attacks and related syndromes. Bed requested for Telemetry/MedSurg (observation). Status is Inpatient Admission. Condition is Stable. Problem is new. Symptoms have improved. UTI on Admission? No. 22:41 22:26 12/29/2018 20:56 Hospitalization Ordered by Andreas Gonzalez DO for Inpatient Admission. Preliminary diagnosis is Transient cerebral ischemic attacks and related syndromes. Bed requested for Telemetry/MedSurg (observation). Status is Inpatient Admission. Condition is Stable. Problem is new. Symptoms have improved. UTI on Admission? No. 23:46 22:41 12/29/2018 20:56 Hospitalization Ordered by Andreas Gonzalez DO for Inpatient Admission. Preliminary diagnosis is Transient cerebral ischemic attacks and related syndromes. Bed requested for Telemetry/MedSurg (observation). Status is Inpatient Admission. Condition is Stable. Problem is new. Symptoms have improved. UTI on Admission? No.
[2018-12-29 21:02] LABS: Potassium 3.9 mmol/L (3.5-5.1)
--- NOTE | 2018-12-29 21:55 | RAD REPORT ---
EXAM DESCRIPTION: RAD - Chest Single View - 12/29/2018 8:51 pm CLINICAL HISTORY: possible stroke Chest pain. COMPARISON: Chest Single View dated 07/23/2018; Chest Single View dated 08/13/2017; Chest Single View d ated 01/31/2016; CHEST SINGLE VIEW dated 10/16/2014 FINDINGS: Portable technique limits examination quality. The lungs are grossly clear. The heart is normal in size. No displaced fractures. IMPRESSION: No acute intrathoracic process suspected.
--- NOTE | 2018-12-29 22:50 | P.HP ---
Certification for Inpatient Patient admitted to: Observation With expected LOS: <2 Midnights Patient will require the following post-hospital care: None Practitioner: I am a practitioner with admitting privileges, knowledge of patient current condition, hospital course, and medical plan of care. Services: Services provided to patient in accordance with Admission requirements found in Title 42 Section 412.3 of the Code of Federal Regulations Patient History Date of Service: 12/29/18 Primary Care Provider: Dr. Donnelly; Neurology-Dr. Ceballos Reason for admission: Slurred speech History of Present Illness: 73-year-old female presented to the emergency room with slurred speech. Patient reported slurred speech earlier today. She then had an episode of slurred speech this afternoon around 7:00 p.m.. This was witnessed. It lasted for several min. By the time she arrived to the emergency room the slurred speech had resolved. Patient denied any weakness, chest pain, shortness of breath. She has reported a migraine headache over the last 6 days. Sister at bedside. In the ER patient evaluated. CT head unremarkable. Stroke score is 0. Chest x- ray unremarkable. Hemoglobin 13.1, sodium 144, potassium 3.9, BUN of 20, creatinine 1.2 with a GFR of 29. Previous renal function within normal range pre patient was admitted for observation. When I saw the patient the ER, she appeared stable. Sister at bedside. Patient reports history of hypertension, diabetes non insulin dependent, and prior CVA in many years ago. Patient also reports history of migraines. Allergies sulfamethoxazole [From Bactrim] Allergy (Severe, Verified 09/04/12 06:00) Anaphylaxis trimethoprim [From Bactrim] Allergy (Severe, Verified 09/04/12 06:00) Anaphylaxis venom-honey bee [bee venom (honey bee)] Allergy (Severe, Verified 08/21/11 21:55 ) Anaphylaxis ciprofloxacin [From Cipro] Allergy (Unknown, Verified 12/13/18 14:30) Unknown codeine [Codeine] Allergy (Verified 08/21/11 15:51) Hives metronidazole [From Flagyl] Allergy (Verified 12/13/18 13:54) Itching Penicillins Allergy (Verified 07/23/18 18:23) Unknown Shellfish Adverse Reaction (Intermediate, Verified 08/21/11 21:55) Nausea/Vomiting levofloxacin [From Levaquin] Adverse Reaction (Verified 08/21/11 21:53) Itching/Hives/Rash Bees Allergy (Uncoded 07/27/15 16:19) Unknown codeine Allergy (Uncoded 06/05/14 02:04) Hives/Rash PCN Allergy (Uncoded 10/17/14 18:15) Unknown Wasps Allergy (Uncoded 07/27/15 16:19) Unknown Home medications list reviewed: Yes Home Medications: Lorazepam [Ativan] 1 mg PO BID 6AM 6PM 12/12/18 Metformin HCl 500 mg PO BID 6AM 6PM 12/12/18 Metoprolol Succinate [Toprol Xl] 100 mg PO BID 6AM 6PM 12/12/18 Omeprazole [Prilosec] 40 mg PO BID 6AM 6PM 12/12/18 Simvastatin 40 mg PO BEDTIME 12/12/18 Tramadol HCl [Ultram] 50 mg PO BID PRN 12/12/18 Cefuroxime Axetil [Cefuroxime] 500 mg PO BID #16 tablet 12/13/18 Ciprofloxacin HCl [Cipro 500 MG Tablet] 500 mg PO BID #16 tab 12/13/18 Eszopiclone [Lunesta] 3 mg PO BEDTIME #1 tablet 12/13/18 metroNIDAZOLE [Flagyl] 500 mg PO Q8H #24 tablet 12/13/18 - Past Medical/Surgical History Diabetic: Yes -: Migraine headache -: HTN -: History of CVA -: Anxiety -: Hyperlipidemia -: Diverticulosis -: Diabetes mellitus type 2 [id number] -: HYSTERECTOMY -: RENAL SX Psychosocial/ Personal History: Patient lives with sister. - Family History Family History: Reviewed- Non-Contributory - Family History Father -: Heart disease, Hypertension Notes: CAD Brother -: Heart disease, Hypertension Notes: TRIPLE BYPASS - Social History Smoking Status: Never smoker Alcohol use: No CD- Drugs: No Caffeine use: Yes Place of Residence: Home Review of Systems General: As per HPI Eyes: Unremarkable ENT: Unremarkable Respiratory: Unremarkable Cardiovascular: Unremarkable Gastrointestinal: Unremarkable Genitourinary: Unremarkable Musculoskeletal: Unremarkable Integumentary: Unremarkable Neurological: Change in Speech, As per HPI Lymphatics: Unremarkable Physical Examination - Physical Exam General: Alert, In no apparent distress, Oriented x3, Cooperative HEENT: Atraumatic, Normocephalic, PERRLA, Mucous membr. moist/pink Neck: Supple, No Thyromegaly Respiratory: Clear to auscultation bilaterally, Normal air movement Cardiovascular: Normal pulses, Regular rate/rhythm Gastrointestinal: Normal bowel sounds, Soft and benign, Non-distended, No tenderness, No masses, No rebound, No guarding Musculoskeletal: No contractures, No erythema, No tenderness, No warmth Integumentary: No tenderness/swelling, No erythema, No warmth, No cyanosis Neurological: Normal speech, Normal strength at 5/5 x4 extr, Normal tone, Normal affect - Studies Laboratory Data (last 24 hrs) 12/29/18 20:32: PT 11.3, INR 0.96, APTT 26.0 12/29/18 20:32: WBC 8.7, Hgb 13.1, Hct 39.3, Plt Count 220 12/29/18 20:32: Sodium 144, Potassium 3.9, BUN 20 H, Creatinine 1.72 H, Glucose 92 Assessment and Plan - Plan Impression: Slurred speech suspect TIA, resolved Acute renal injury suspect dehydration Hypertension Diabetes mellitus type 2, [id number] History of CVA Plan: Slurred speech suspect TIA, resolved: Patient will be admitted for further evaluation and treatment. Patient has been taking aspirin at home. Will add Plavix and cholesterol medication. Will provide DVT prophylaxis-heparin. Case discussed with her neurologist-Dr. Ceballos. Will continue to monitor closely. Will have physical therapy assess patient tomorrow. Will continue with IV fluids due to dehydration. Will hold blood pressure medication at this time. Will provide folic acid. Will check echocardiogram, carotid Doppler and stroke protocol MRI in the morning to further evaluate. I will turn the service over to Dr. Mayen tomorrow. I will go over the plan of care with him. Advanced directives address with patient and sister. Patient is do not resuscitate. Anticipate possible discharge if workup unremarkable. Patient will likely require aspirin, Plavix and cholesterol medication at discharge. If workup unremarkable no need for neurology inpatient consultation. This can be done as an outpatient. Acute renal injury suspect dehydration: Continue IV fluids. Recheck renal function tomorrow. Will consider getting renal ultrasound to further evaluate. Hypertension: Will hold blood pressure medication at this time due to low blood pressure. Diabetes mellitus type 2, [id number]: Continue Accu-Cheks. Will provide insulin sliding scale. History of CVA: Continue as above. Discharge Plan: Home Plan to discharge in: 24 Hours - Advance Directives Does patient have a Living Will: No Does patient have a Durable POA for Healthcare: Yes - Code Status/Comfort Care Code Status Assessed: Yes Code Status: Do Not Attempt Resuscitat Time Spent Managing Pts Care (In Minutes): 55
--- NOTE | 2018-12-30 08:03 | EKG ---
Test Date: 2018-12-29 Test Time: 20:12:39 Health Type Technician: RV MEASUREMENT RESULTS: Intervals: Rate: 77 KS: 150 QRSD: 84 QT: 376 QTc: 425 [place]: P: 62 KS: 150 QRS: 0 T: 59 INTERPRETIVE STATEMENTS: Normal sinus rhythm Moderate voltage criteria for LVH, may be normal variant Borderline ECG Compared to ECG 12/12/2018 01:13:57 Left ventricular hypertrophy now present Electronically Signed On 12-30-18 08:02:40 CDT by Hardeep Diamond
[2018-12-30 10:54] VITALS: TEMP 98.9
[2018-12-30 10:56] VITALS: O2SAT 100
[2018-12-30 10:58] VITALS: BP 101/62
== END ==
LOC: ER 19:58 → ERHOLD 22:11 → UNDOADMOB 22:11
DX: G45.8 Other transient cerebral ischemic attacks and related syndromes (principal); N17.9 Acute kidney failure, unspecified; E11.9 Type 2 diabetes mellitus without complications; E78.5 Hyperlipidemia, unspecified; I10 Essential (primary) hypertension; F32.9 Major depressive disorder, single episode, unspecified; G30.9 Alzheimer's disease, unspecified; F02.80 Dementia in other diseases classified elsewhere, unspecified severity, without behavioral disturbance, psychotic disturbance, mood disturbance, and anxiety; Z79.82 Long term (current) use of aspirin; Z88.1 Allergy status to other antibiotic agents; Z88.5 Allergy status to narcotic agent; Z88.8 Allergy status to other drugs, medicaments and biological substances; Z85.528 Personal history of other malignant neoplasm of kidney; Z91.013 Allergy to seafood; Z91.030 Bee allergy status; Z91.038 Other insect allergy status
CPT/HCPCS: 36415; 70450; 71045; 80048; 82962; 85025; 85610; 85730; 93005; 99285

== ENCOUNTER 2019-01-05 16:26 | Emergency (ER) | payer OTHER ==
--- OUTSIDE RECORDS SUMMARY | 2019-01-05 16:31 | XMS REPORT | Continuity of Care Document ---
:1945 Author Organization [employer] Care Team Providers Name Role Phone [facility] Information [employer] Unavailable Unavailable Problems Problem Status Onset Classification Date Comments Source Date Reported CVA Active 02/18/[address] AMS. CVA Active 02/18/[address] CVA (Confirmed) Resolved Problem 11/01/2018 [facility] Dementia Active Problem 11/01/2018 [facility] Neuro Depression Active Problem 11/01/2018 [facility] Neuro Diabetes mellitus Active Problem 11/01/2018 [facility] type II Neuro Diverticulitis Resolved Problem 11/01/2018 [facility] HDL Resolved Problem 11/01/2018 [facility] HTN (Confirmed) Resolved Problem 11/01/2018 [facility] Hyperlipidemia Active Problem 11/01/2018 [facility] Neuro Hypertension Active Problem 11/01/2018 [facility] [...] (finding) Neuro Tremor (finding) Active Problem 12/12/2018 [facility] Neuro ALTERED MENTAL Active [facility] Medications Medication Details Route Status Patient Ordering Order Source Instructions Provider Date Donepezil 5 mg=1 tab, Active [facility] hydrochloride 5 PO, 019 Neuro MG Oral Tablet Bedtime, # [Aricept] 30 tab, 3 Refill(s), Pharmacy: [facility] [id number] Amlodipine 10 MG 10 mg=1 Active [facility] [...] 019 Neuro Omeprazole 40 mg, No Longer [facility] Route: PO, Active 014 Medical Drug form: Center DRC, Daily, Dosing Weight 81.818, kg, Start date: 02/19/14 9:00:00, Duration: 30 day, Stop date: 03/20/14 9:00:00 Losartan 25 mg, 1 No Longer [facility] tab, Route: Active 014 Medical PO, Drug Center form: TAB, Daily, Dosing Weight 81.818, kg, Start date: 02/19/14 9:00:00, Duration: 30 day, Stop date: 03/20/14 9:00:00Note s: (Same as: Chad) Zetia 10 mg, 1 No Longer [facility] tab, Route: Active 014 Medical PO, Drug Center form: TAB, Daily, Dosing Weight 81.818, kg, Start date: 02/19/14 9:00:00, Duration: 30 day, Stop date: 03/20/14 9:00:00Note s: (Same as: Zetia) Protonix 40 mg, 1 No Longer [facility] tab, Route: Active 014 Medical PO, Drug Center form: ECTAB, Before Breakfast, Start date: 02/19/14 7:30:00, Duration: 30 day, Stop date: 03/20/14 7:30:00Note s: Tablet should not be chewed or crushed. (Same as: Protonix) gabapentin 300 MG 300 mg, 1 No Longer [facility] Oral Capsule cap, Route: Active 014 Medical [Neurontin] PO, Drug Center form: CAP, Q8H, Dosing Weight 81.818, kg, Start date: 02/19/14 0:00:00, Duration: 30 day, Stop date: 03/20/14 16:00:00Not es: (Same as: Neurontin) Simvastatin 40 mg, 1 Inactive [facility] tab, Route: 014 Medical PO, Drug Center form: TAB, Bedtime, Dosing Weight 81.818, kg, Start date: 02/18/14 21:00:00, Duration: 30 day, Stop date: 03/19/14 21:00:00Not es: (Same as: Zocor) Restoril 30 mg, 2 Inactive [facility] cap, Route: 014 Medical PO, Drug Center form: CAP, Bedtime, PRN Sleep, Start date: 02/18/14 18:21:00, Duration: 30 day, Stop date: 03/20/14 18:20:00Not es: (Same As: Restoril) Bentyl 20 mg, 1 Inactive [facility] tab, Route: 014 Medical PO, Drug Center form: TAB, Q6H, Dosing Weight 81.818, kg, PRN Other -See Comment, Start date: 02/18/14 17:55:00, Stop date: 03/20/14 17:54:00, irritable bowelNotes: (Same as: Bentyl) Metoclopramide 10 10 mg, 1 Inactive [facility] MG Oral Tablet tab, Route: 014 Medical [Reglan] PO, Drug Center form: TAB, QID-Before Meals, Dosing Weight 81.818, kg, PRN Nausea, Start date: 02/18/14 17:54:00, Stop date: 03/20/14 17:53:00Not es: (Same as: Reglan) Take 30 min before meals Lorazepam 1 mg, 1 Inactive [facility] tab, Route: 014 Medical PO, Drug Center form: TAB, BID, Dosing Weight 81.818, kg, PRN as needed for anxiety, Start date: 02/18/14 17:53:00, Stop date: 03/20/14 17:52:00Not es: (Same as: Ativan) Lunesta 3 mg, Inactive [facility] Route: PO, 014 Medical Drug form: Center TAB, Bedtime, Dosing Weight 81.818, kg, PRN as needed for insomnia, Start date: 02/18/14 17:53:00, Stop date: 03/20/14 17:52:00 meclizine 25 mg 25 mg=1 On Hold [facility] oral tablet tab, PO, 014 Medical TID, for Center dizziness, # 60 tab, 0 Refill(s) losartan 50 mg 50 mg=1 On Hold [facility] oral tablet tab, PO, 014 Medical Daily, # 30 Center tab, 0 Refill(s) omeprazole 40 mg 40 mg=1 On Hold [facility] oral delayed cap, PO, 014 Medical release capsule Daily, # 30 Center cap, 0 Refill(s) promethazine 12.5 12.5 mg=1 On Hold [facility] mg oral tablet tab, PO, 014 Medical Q4H, Nausea Center & Vomiting, # 60 tab, 0 Refill(s) ezetimibe 10 MG 10 mg=1 On Hold [facility] Oral Tablet tab, PO, 014 Medical [Zetia] Daily, # 30 Center tab, 0 Refill(s) gabapentin 300 MG 300 mg=1 On Hold [facility] Oral Capsule cap, PO, 014 Medical [Neurontin] TID, # 90 Center cap, 0 Refill(s) clopidogrel 75 mg, 1 Inactive [facility] tab, Route: 014 Medical PO, Drug Center form: TAB, Daily, Dosing Weight 81.818, kg, Start date: 02/18/14 9:00:00, Duration: 30 day, Stop date: 03/19/14 9:00:00Note s: (Same As: Plavix) Aspirin 325 MG 325 mg, 1 Inactive [facility] Enteric Coated tab, Route: 014 Medical Tablet PO, Drug Center form: ECTAB, Daily, Dosing Weight 81.818, kg, Start date: 02/18/14 9:00:00, Duration: 30 day, Stop date: 03/19/14 9:00:00Note s: (Do Not Crush) Do not crush or chew. Keppra 500 mg, 1 Inactive [facility] tab, Route: 014 Medical PO, Drug Center form: TAB, Q12H, Dosing Weight 81.818, kg, Priority: NOW, Start date: 02/18/14 4:30:00, Duration: 30 day, Stop date: 03/19/14 21:00:00Not es: (Same as:Keppra) tramadol 50 mg, 1 Inactive [facility] hydrochloride 50 tab, Route: 014 Medical MG Oral Tablet PO, Drug Center form: TAB, Q6H, Dosing Weight 81.818, kg, PRN Pain, Start date: 02/18/14 4:12:00, Duration: 30 day, Stop date: 03/20/14 4:11:00Note s: Not to exceed 400mg/day. (Same As: Ultram) Lorazepam 0.5 mg, Inactive [facility] 0.25 mL, 014 Medical Route: IV, Center Drug form: INJ, ONCE, Dosing Weight 81.818, kg, Start date: 02/18/14 1:30:00, Stop date: 02/18/14 1:30:00Note s: (Same as: Ativan) Loratadine 10 mg, 1 Inactive [facility] tab, Route: 014 Medical PO, Drug Center form: TAB, Daily, Dosing Weight 81.818, kg, PRN Allergies, Start date: 02/18/14 0:28:00, Duration: 30 day, Stop date: 03/20/14 0:27:00Note s: 1 hr before meals (Same as: Claritin) Ondansetron 4 mg, Inactive [facility] Route: IVP, 014 Medical Drug form: Center INJ, ONCE, Dosing Weight 81.818, kg, Priority: STAT, Start date: 02/17/14 23:19:00, Stop date: 02/17/14 23:19:00 Benadryl 25 mg, Inactive [facility] Route: IVP, 014 Medical ONCE, Center Dosing Weight 81.818, kg, PRN Itching, Start date: 02/17/14 22:50:00 Meclizine 0 Refill(s) No Longer [address] Losartan 0 Refill(s) No Longer [address] Promethazine 0 Refill(s) No Longer [address] Zetia 0 Refill(s) No Longer [address] Rogaine 0 Refill(s) No Longer [address] Lunesta 0 Refill(s) No Longer [address] Lipitor 80 mg, 1 No Longer [facility] tab, Route: Active 014 Medical PO, Drug Center form: TAB, Bedtime, Dosing Weight 81.818, kg, Start date: 02/17/14 21:00:00, Duration: 30 day, Stop date: 03/18/14 21:00:00Not es: Same as Lipitor Saline Flush 0.9% 10 ml, No Longer [facility] Route: IVP, Active 014 Medical Drug Form: [place] INJ, Dosing Weight 81.818, kg, Q12H, Start date: 02/17/14 21:00:00, Duration: 30 day, Stop date: 03/19/14 9:00:00Note s: (Same as: BD Posiflush) Famotidine 20 mg, 1 No Longer [facility] tab, Route: Active 014 Medical PO, Drug Center form: TAB, Q12H, Dosing Weight 81.818, kg, Start date: 02/17/14 21:00:00, Duration: 30 day, Stop date: 03/19/14 9:00:00Note s: (Same as: Pepcid) Tylenol 650 mg, Inactive [facility] Route: PO, 014 Medical Drug form: [place] TAB, ONCE, Dosing Weight 81.818, kg, Priority: [...] tablet tab, PO, Active 014 Medical BID [place] simvastatin 40 mg 40 mg=1 On Hold [place] oral tablet tab, PO, 014 Medical Daily, # 30 Center tab, 0 Refill(s) montelukast 10 MG 10 mg=1 On Hold [place] Oral Tablet tab, PO, 014 Medical [Singulair] QAM, as Center needed for allergies (in the Spring only), # 30 tab, 0 Refill(s) metoprolol 50 mg=1 On Hold [facility] tartrate 50 mg tab, PO, 014 Medical oral tablet BID, # 180 Center tab, 0 Refill(s) LORazepam 1 mg 1 mg=1 tab, On Hold [place] oral tablet PO, BID, 014 [facility] Anxiety [place] Zofran 4 mg, Inactive [facility] Route: IVP, 014 Medical Drug form: Center INJ, ONCE, Dosing Weight 81.818, kg, Priority: STAT, Start date: 02/17/14 16:53:00, Stop date: 02/17/14 16:53:00 heparin, porcine 5,000 unit, No Longer [place] 1 mL, Active 014 Medical Route: [place] SUB-Q, Drug form: INJ, Q8H, Dosing Weight 81.818, kg, (For patients weighing Notes: porcine heparin Saline Flush 0.9% 10 ml, Inactive [facility] Route: IVP, 014 Medical Drug Form: Center INJ, Dosing Weight 81.818, kg, PRN, PRN Line Flush, Start date: 02/17/14 15:43:00, Duration: 30 day, Stop date: 03/19/14 14:42:00 Labetalol 10 mg, 2 No Longer [facility] mL, Route: Active 014 Medical IVP, Drug Center form: INJ, Q10Min, Dosing Weight 81.818, kg, PRN Hypertensio n, Start date: 02/17/14 15:43:00, Stop date: 03/20/14 0:41:00, For SBP > 190mmHg and/or DBP > 105mmHg Acetaminophen 650 mg, 2 No Longer [facility] tab, Route: Active 014 Medical PO, Drug Center form: TAB, Q4H, Dosing Weight 81.818, kg, PRN Pain 1-3/Temp > 99.5 F, Start date: 02/17/14 15:43:00, Duration: 30 day, Stop date: 03/19/14 15:42:00Not es: Do not exceed 4 gm/day. (Same as: Tylenol) Sodium Chloride 1,000 mL, No Longer [facility] 0.154 MEQ/ML Rate: 100 Active [facility] Medical Injectable ml/hr, [place] Solution Infuse over: 10 hr, Route: IV, Dosing Weight 81.818 kg, Total Volume: 1,000, Start date: 02/17/14 15:43:00, Duration: 30 day, Stop date: 03/19/14 15:42:00 Plavix 300 mg, 1 Inactive [facility] tab, Route: 014 Medical PO, Drug Center form: TAB, ONCE, Dosing Weight 81.818, kg, Priority: STAT, Start date: 02/17/14 15:42:00, Stop date: 02/17/14 15:42:00Not es: ( Same as: Plavix) aspirin 324 mg, 4 Inactive [facility] tab, Route: 014 Medical CHEW, Drug Center form: CHEWTAB, ONCE, Dosing Weight 81.818, kg, Priority: STAT, Start date: 02/17/14 15:42:00, Stop date: 02/17/14 15:42:00Not es: Take with food. Sodium Chloride 1,000 mL, Inactive [place] 0.154 MEQ/ML 1,000 014 Medical Injectable ml/hr, [place] Solution Infuse Over: 1 hr, Route: IV, 1,000, Drug form: INJ, ONCE, Priority: STAT, Dosing Weight 81.818 kg, Start date: 02/17/14 15:16:00, Duration: 1 doses or times, Stop date: 02/17/14 15:16:00 iodixanol 120 mL, Inactive [facility] Route: IVP, 014 Medical Drug Form: [place] SOLN, Dosing Weight 81.818, kg, ONCALL, STAT, Start date: 02/17/14 13:55:00, Duration: 1 doses or times, Dose=2.2ml/ kg, Max [id number] -- "To be infused by Radiology Staff ONLY"Specia l Instruction s: Dose=2.2ml/ kg, Max [id number] -- "To be infused by Radiology Staff ONLY" iodixanol 120 mL, Inactive [facility] Route: IVP, 014 Medical Drug Form: [place] SOLN, Dosing Weight 81.818, kg, ONCALL, STAT, Start date: 02/17/14 13:51:00, Duration: 1 doses or times, Dose=2.2ml/ kg, Max [id number] -- "To be infused by Radiology Staff ONLY"Specia l Instruction s: Dose=2.2ml/ kg, Max [id number] -- "To be infused by Radiology Staff ONLY" Sodium Chloride 1,000 mL, Inactive [place] 0.154 MEQ/ML 1,000 014 Medical Injectable ml/hr, [place] Solution Infuse Over: 1 hr, Route: IV, 1,000, Drug form: INJ, ONCE, Priority: STAT, Dosing Weight 81.818 kg, Start date: 02/17/14 12:51:00, Duration: 1 doses or times, Stop date: 02/17/14 12:51:00 Saline Flush 0.9% 10 mL, No Longer [facility] Route: IVP, Active 014 Medical Drug Form: [place] INJ, Dosing Weight 81.818, kg, PRN, PRN [...] SPECIAL Hgb A1C 6.6 <=5.6 % 02/18 [facility] CHEMISTRY [facility] LIPIDS CHD Risk 3.80 3.90 - 02/18 [facility] 5.80 [facility] LIPIDS Chol 167 <=199 02/18 [facility] mg/dL [facility] LIPIDS HDL 44 >=61 mg/dL 02/18 [facility] LIPIDS Trig 182 <=149 02/18 [facility] mg/dL [facility] LIPIDS VLDL 36 02/18 [facility] LIPIDS LDL 87 <=99 mg/dL 02/18 [facility] (Calculated) [facility] ANEMIA % Satur Fe 34 12 - 57 02/18 [facility] STUDY [facility] ANEMIA TIBC 342 228 - 428 02/18 [facility] [address]UD[address] [facility] ANEMIA UIBC 227 110 - 370 02/[address] [facility] ANEMIA Iron 115 30 - 160 02/[address] [facility] ANEMIA Ferritin Lvl 97 5 - 204 02/[address] [facility] CHEM PANEL Lactic Acid 1.9 0.5 - 2.2 02/17 [facility] Lvl [facility] URINE AND UA Mucus None Seen None Seen 02/17 [facility] STOOL (02/17/14 2:18 PM) [facility] URINE AND UA Sq Epi Few /LPF Few /LPF 02/17 [facility] [address] [facility] URINE AND UA RBC None Seen 0 - 2 02/17 [facility] STOOL (02/17/14 2:18 PM) [facility] URINE AND UA Bacteria Occasional None Seen 02/17 [facility] STOOL /HPF /HPF [facility] URINE AND UA WBC 0-2 /HPF None Seen 02/17 [facility] STOOL /HPF [facility] URINE AND UA Spec Grav 1.020 <=1.030 02/17 [facility]OOL [facility] URINE AND UA Color Yellow Yellow 02/17 [facility] STOOL *NA* /2014 Medical (02/17/14 2:18 PM) Center URINE AND UA Turbidity Clear Clear 02/17 [facility] (02/17/14 2:18 PM) [facility] URINE AND UA Leuk Est Negative Negative 02/17 [facility] (02/17/14 2:18 PM) [facility] URINE AND UA Nitrite Negative Negative 02/17 [facility] (02/17/14 2:18 PM) [facility] URINE AND UA 0.2 0.1 - 1.0 02/17 [facility] Urobilinogen /2013 [facility] URINE AND UA Blood Negative Negative 02/17 [facility] (02/17/14 2:18 PM) [facility] URINE AND UA Bili Negative Negative 02/17 [facility] *NA* [facility] (02/17/14 2:18 PM) [place] URINE AND UA Glucose Negative Negative 02/17 [facility] (02/17/14 2:18 PM) [facility] URINE AND UA Ketones Negative Negative 02/17 [facility] *NA* [facility] (02/17/14 2:18 PM) [place] URINE AND UA Protein Negative Negative 02/17 [facility] (02/17/14 2:18 PM) [facility] URINE AND UA pH 6.5 5.0 - 8.0 02/17 [facility] [address]OOL [facility] CARDIAC CK MB 3.4 0.5 - 3.6 02/17 [facility] [address] [facility] CARDIAC Troponin-I 0.07 0.00 - 02/17 [facility] [address].40 [facility] CARDIAC Total CK 123 12 - 191 02/17 [facility] [address] [facility] CARDIAC CK MB Index 2.8 0.0 - 2.5 02/17 [facility] [address] [facility] CHEM PANEL eGFR 02/17 <sup>1</sup>R esult [...] PANEL Creatinine 1.4 0.5 - 1.4 02/17 [facility] l [facility] CHEM PANEL Glucose Lvl 211 70 - 99 02/17 <sup>2</sup>I nterpretive Medical Data: Adult Center reference range values reflect the clinical guidelines
of the [employer]. CHEM PANEL BUN 13 7 - 22 02/17 [facility] CHEM PANEL B/C Ratio 9 6 - 25 02/17 [facility] CHEM PANEL AGAP 16.8 10.0 - 02/17 [facility] [address]. [facility] CHEM PANEL Calcium Lvl 8.8 8.5 - 10.5 02/17 [facility] CHEM PANEL CO2 23 24 - 32 02/17 [facility] CHEM PANEL Chloride Lvl 105 95 - 109 02/17 [facility] CHEM PANEL Sodium Lvl 141 135 - 145 02/17 [facility] CHEM PANEL Potassium Lvl 3.8 3.5 - 5.1 02/17 [facility] CHEM PANEL A/G Ratio 1.0 0.7 - 1.6 02/17 [facility] CHEM PANEL Total Protein 7.0 6.4 - 8.4 02/17 [facility] CHEM PANEL Albumin Lvl 3.5 3.5 - 5.0 02/17 [facility] CHEM PANEL AST 24 0 - 37 02/17 [facility] CHEM PANEL ALT 28 0 - 65 02/17 [facility] CHEM PANEL Bili Total 0.6 0.2 - 1.3 02/17 [facility] CHEM PANEL Alk Phos 94 39 - 136 02/17 [facility] CHEM PANEL Globulin 3.5 2.0 - 4.0 02/17 [facility] CHEM PANEL Lactic Acid 4.9 0.5 - 2.2 02/17 <sup>3</sup>R [facility] Lvl esult Medical Comment: Center Critical Result(s) called to Dr. Stefanie Tamez at 02/17/2014 12:[address] Read back OK. HEMATOLOGY INR 0.95 0.85 - 02/17 <sup>4</sup>I [facility] 1.17 nterpretive Medical Data: Center RECOMMENDED RANGES FOR PROTIME INR:
2.0-3.0 for most medical and surgical thromboemboli c states.
2.5-3.5 for artificial heart valves and recurrent embolism.<br/ >
INR SHOULD BE USED ONLY FOR PATIENTS ON STABLE ANTICOAGULANT THERAPY. HEMATOLOGY PT 12.7 12.0 - 02/17 [facility] [address].7 [facility] HEMATOLOGY Platelet 205 133 - 450 02/17 [facility] HEMATOLOGY MCH 29.0 27.0 - 02/17 [facility] [address] [facility] HEMATOLOGY MCHC 33.7 32.0 - 02/17 [facility] 36.0 /2013 [facility] HEMATOLOGY RDW 13.6 11.5 - 02/17 [facility] 14.5 /2013 [facility] HEMATOLOGY Hct 51.8 36.0 - 02/17 [facility] 48.0 /2013 [facility] HEMATOLOGY MCV 86.2 80.0 - 02/17 [facility] 98.0 /2013 [facility] HEMATOLOGY Hgb 17.4 12.0 - 02/17 [facility] 16.0 /2013 [facility] HEMATOLOGY RBC 6.01 4.20 - 02/17 [facility] 5.40 /2013 [facility] HEMATOLOGY MPV 11.5 7.4 - 10.4 02/17 [facility] HEMATOLOGY WBC 14.1 3.7 - 10.4 02/17 [facility] HEMATOLOGY PTT 21.8 22.9 - 02/17 <sup>5</sup>I [facility] 35.8 nterpretive Medical Data: Heparin Center Therapeutic Range: 57 - 92 Seconds HEMATOLOGY Plt Morph Normal 02/17 [facility] (02/17/14 12:09 PM) [facility] HEMATOLOGY RBC Morph Normal 02/17 [facility] (02/17/14 12:09 PM) /2013 [facility] HEMATOLOGY Eosinophils # 0.1 0.0 - 0.5 02/17 [facility] HEMATOLOGY Basophils # 0.1 0.0 - 0.2 02/17 [facility] HEMATOLOGY Segs-Bands # 10.8 1.5 - 8.1 02/17 [facility] HEMATOLOGY Monocytes # 0.6 0.0 - 0.8 02/17 [facility] HEMATOLOGY Lymphocytes # 2.5 1.0 - 5.5 02/17 [facility] HEMATOLOGY Lymphocytes 17.5 20.0 - 02/[address] [place] [address] [facility] HEMATOLOGY Segs 77.0 45.0 - 02/[address] [place] [address] [facility] HEMATOLOGY Monocytes 4.3 2.0 - 12.0 02/17 [facility] HEMATOLOGY Basophils 0.4 0.0 - 1.0 02/17 [facility] HEMATOLOGY Eosinophils 0.8 0.0 - 4.0 02/17 [facility] Pathology Reports No Data Provided for This Section Diagnostic Reports No Data Provided for This Section Consultation Notes No Data Provided for This Section Discharge Summaries No Data Provided for This Section History and Physicals No Data Provided for This Section Vital Signs Vital Sign Value Date Comments Source Weight 55.455 10/29/2018 [facility] Neuro BMI Calculated 22.36 10/29/2018 [facility] Neuro Height 157.48 cm 10/29/2018 [facility] Neuro Systolic (mm Hg) 136 10/29/2018 [facility] Neuro Diastolic (mm Hg) 86 10/29/2018 [facility] Neuro Respitory Rate 16 10/29/2018 [facility] Neuro Heart Rate 71 10/29/2018 [facility] Neuro Weight 57.273 09/27/2018 [facility] Neuro BMI Calculated 23.86 09/27/2018 [facility] Neuro Height 154.94 cm 09/27/2018 [facility] Neuro Respitory Rate 16 09/27/2018 [facility] Neuro Systolic (mm Hg) 153 09/27/2018 [facility] Neuro Diastolic (mm Hg) 85 09/27/2018 [facility] Neuro Heart Rate 60 09/27/2018 [facility] Neuro Systolic (mm Hg) 195 02/18/2014 [facility] Diastolic (mm Hg) 92 02/18/2014 [facility] Respitory Rate 18 02/18/2014 [facility] Systolic (mm Hg) 159 02/18/2014 [facility] Diastolic (mm Hg) 91 02/18/2014 [facility] Respitory Rate 27 02/18/2014 [facility] Systolic (mm Hg) 144 02/18/2014 [facility] Diastolic (mm Hg) 77 02/18/2014 [facility] Respitory Rate 27 02/18/2014 [facility] Temperature Oral (F) 99.5 F 02/18/2014 [facility] Height 172.72 cm 02/17/2014 [facility] BMI Calculated 27.43 02/17/2014 [facility] Weight 81.818 02/17/2014 [facility] Heart Rate 120 02/17/2014 [facility] Encounters Location Location Encounter Encounter Reason Attending ADM DC Status Source Details Type Number For Provider Date Date Visit [facility] [id number] [place] 02/17 02/19 [facility] [place] [facility]2013 [facility] Outpatient [id number] [place] 09/27 09/28 [facility] Neurology [facility] /2018 [facility] [id number] Oscar 10/29 [facility] [place] [facility] Outpatient [id number] Oscar 10/29 10/30 [facility] Neurology [facility] /2018 [facility] [id number] Oscar 12/10 Active [facility] [place] [facility] Ambulatory [id number] Oscar 12/10 12/10 [facility] Neurology Pre-Reg [facility] [id number] Oscar 01/15 [facility] [place] Procedures Procedure Code Date Perfomer Comments Source Back fusion [id number] [facility] Assessment and Plan Assessment and Plan Date Source Extracted from:Title: Stroke Fellow H/P 02/19/2014 [facility] Author: Robert Martinez MD Date: 02/17/14 STROKE [...] left side. 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 She is otherwise fully independent [...] son in his 40s, hypertension, father of [place], mother of lung cancer. SOCIAL HISTORY: The [...] and vibration throughout. Coordination: no dysmetria on [id number]. Reflexes: R Biceps 2+, Triceps 2+, Brachioradialis 2+, Patella 2+, Ankle 2+. L Biceps 2+, Triceps 2+, Brachioradialis 2+, Patella 2+, Ankle 2+. Toes downgoing bilaterally. Gait: not tested. NIH Stroke Scale (NIHSS) 1a. Level of Consciousness; 0-alert 1-drowsy 2-stupor 3-comatose 0 1b. LOC Questions month and age; 0-both 1-one 2-neither 1 (said she was 62) 1c. 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 Best Gaze; 0-nl 1-partial 2-forced gaze 0 3. Visual [place]; 0-No visual loss. 1-Partial hemianopia 2-Complete 3- Bilateral 𓅩0 4. Facial Palsy; 0-none 1-minor 2-partial 3-complete 0 5. Motor - R arm; 0-No drift 1-Drift 2-Some antigravity 3-No antigravity 4-No movement 𒂿 0 6. Motor - R leg; 0-No drift 1-Drift 2-Some antigravity 3-No antigravity 4-No movement 𐚟 0 7. Motor - L arm; 0-No drift 1-Drift 2-Some antigravity 3-No antigravity 4-No movement  0 8. Motor - L leg; 0-No drift 1-Drift 2-Some antigravity 3-No antigravity 4-No movement 势 0 9. Limb Ataxia; 0 absent 1 - 1limb 2 - 2 limbs 0 10. Sensory; 0-nl 1-partial loss 2-dense loss 0 11. Best Language; 0-nl 1-mild/mod 2-severe 3-mute 0 12. Dysarthria; 0-nl 1-mild/mod 2-severe x-untestable 0 13. 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 - Laterally projecting 3 [...] symptomatic intracranial atherosclerosis as outlined in the [facility] protocol. DIFFERENTIAL DIAGNOSIS TIA vs. seizure vs. syncope. PLAN - Admit to stroke unit. - ASA 325mg daily and Plavix load (300 mg) was given in the ER. Patient will be maintained on ASA 325 and Plavix 75 for three months per the [facility] protocol. - Atorvastatin 80mg daily has been ordered. - TTE to evaluate for cardiac source of embolus. - Routine EEG - Stroke labs: fasting lipid panel and hemoglobin A1c. - IVNS 125cc/hr. - Permissive hypertension. - Treat fevers and blood sugars aggressively. - PT/OT/BACK WINDER consults - rehab assessments have been ordered. [...] to prevent stroke has also been emphasized AStormy Martinez MD Vascular Neurology fellow MSO# [id number] Pager# [phone] STROKE STAFF I have personally evaluated the [...] most evident in the left MCA, bilateral wallpaperer and basilar artery. Laterally projecting 3 mm [...] cerebral hypoperfusion 401.9, HTN, malignant 288.6, leukocytosis 10758 Plan of Care No Data Provided for This Section Social History Social History Date Source Social History TypeResponse 02/18/2014 [facility] Substance Abuse Use: None Sexual Sexually active: [...]
--- NOTE | 2019-01-05 18:28 | ER ---
Nurse's Notes [facility] Name: Amber Acosta Age: 73 yrs Sex: Female : 1945 Arrival Date: 01/05/2019 Time: 16:34 Bed Waiting Private MD: Lorraine Donnelly Diagnosis: Presentation: 01/05 16:33 Presenting complaint: Patient states: headache after weeding her plants outside, HTN sv started today. Transition of care: patient was not received from another setting of care. Onset of symptoms was January 05, 2019. Risk Assessment: Do you want to hurt yourself or someone else? Patient reports no desire to harm self or others. Care prior to arrival: None. 16:33 Method Of Arrival: Ambulatory sv 16:33 Acuity: IVETTE 4 sv Triage Assessment: 16:33 Headache History: The patient has had previous headaches and this one is similar to sv previous episodes. General: Appears in no apparent distress. uncomfortable, Behavior is calm, cooperative, appropriate for age. Pain: Complains of pain in face and scalp. Neuro: Level of Consciousness is awake, alert, obeys commands, Oriented to person, place, time, situation, Moves all extremities. Full function Gait is steady. Respiratory: Respiratory effort is even, unlabored, Respiratory pattern is regular, symmetrical. Historical: - Allergies: 16:35 Bees; sv 16:35 Codeine; sv 16:35 hydrocodone bitartrate; sv 16:35 Levofloxacin; sv 16:35 METRONIDAZOLE; sv 16:35 PENICILLINS; sv 16:35 SHELLFISH; sv 16:35 sulfamethoxazole; sv 16:35 TRIMETHOPRIM; sv 16:35 Wasps; sv - PMHx: 16:35 Alzheimers; Anxiety; CAD; Depression; Diabetes - NIDDM; GERD; High Cholesterol; sv Hypertension; kidney cancer; Migraines; - PSHx: 16:35 Knee surgery; Hysterectomy; sv Vital Signs: 16:35 BP 129 / 72; Pulse 66; Resp 16; Temp 98.8; Pulse Ox 97% ; Weight 63.5 kg; Height 5 ft. sv 2 in. (157.48 cm); 16:35 Body Mass Index 25.61 (63.50 kg, 157.48 cm) sv ED Course: 16:34 Patient arrived in ED. am2 16:34 Lorraine Donnelly MD is Private Physician. am2 16:34 Triage completed. sv 16:35 Arm band placed on. sv Administered Medications: No medications were administered Outcome: 18:26 Patient left the ED. hb Signatures: Isabella Booth RN RN sv Chio Chavez RN RN Adelina Valdes am2 Corrections: (The following items were deleted from the chart) 16:35 16:33 Acuity: IVETTE 3 sv sv
[2019-01-05 19:34] VITALS: BP 129/72; TEMP 98.8; O2SAT 97
== END 2019-01-05 18:26 | disposition left against medical advice (07) ==
LOC: ER 16:26
DX: Z02.9 Encounter for administrative examinations, unspecified (principal)
CPT/HCPCS: 99281

== ENCOUNTER 2019-01-06 05:18 | Emergency (ER) | payer OTHER ==
--- OUTSIDE RECORDS SUMMARY | 2019-01-06 05:22 | XMS REPORT | Continuity of Care Document ---
:1945 Author Organization [facility] Care Team Providers Name Role Phone [facility] Information Fy[place] Unavailable Unavailable Problems Problem Status Onset Classification Date Comments Source Date Reported CVA Active 02/18/[address] AMS. CVA Active 02/18/[address] CVA (Confirmed) Resolved Problem 11/01/2018 [facility] Dementia Active Problem 11/01/2018 [facility] Depression Active Problem 11/01/2018 [facility] Diabetes mellitus Active Problem 11/01/2018 [facility] type II Neuro Diverticulitis Resolved Problem 11/01/2018 [facility] HDL Resolved Problem 11/01/2018 [facility] HTN (Confirmed) Resolved Problem 11/01/2018 [facility] Hyperlipidemia Active [facility] Hypertension Active Problem 11/01/2018 [facility] [...] (finding) Neuro Tremor (finding) Active Problem 12/12/2018 [facility] ALTERED MENTAL Active [facility] Medications Medication Details Route Status Patient Ordering Order Source Instructions Provider Date Donepezil 5 mg=1 tab, Active [facility] hydrochloride 5 PO, 019 Neuro MG Oral Tablet Bedtime, # [Aricept] 30 tab, 3 Refill(s), Pharmacy: [facility] [id number] Amlodipine 10 MG 10 mg=1 Active [facility] [...] 019 Neuro Omeprazole 40 mg, No Longer [facility] Route: PO, Active 014 Medical Drug form: Center DRC, Daily, Dosing Weight 81.818, kg, Start date: 02/19/14 9:00:00, Duration: 30 day, Stop date: 03/20/14 9:00:00 Losartan 25 mg, 1 No Longer [facility] tab, Route: Active 014 Medical PO, Drug Center form: TAB, Daily, Dosing Weight 81.818, kg, Start date: 02/19/14 9:00:00, Duration: 30 day, Stop date: 03/20/14 9:00:00Note s: (Same as: Chad) Zetia 10 mg, 1 No Longer [facility] tab, Route: Active 014 Medical PO, Drug Center form: TAB, Daily, Dosing Weight 81.818, kg, Start date: 02/19/14 9:00:00, Duration: 30 day, Stop date: 03/20/14 9:00:00Note s: (Same as: Zetia) Protonix 40 mg, 1 No Longer [facility] tab, Route: Active 014 Medical PO, Drug Center form: ECTAB, Before Breakfast, Start date: 02/19/14 7:30:00, Duration: 30 day, Stop date: 03/20/14 7:30:00Note s: Tablet should not be chewed or crushed. (Same as: Protonix) gabapentin 300 MG 300 mg, 1 No Longer [facility] Oral Capsule cap, Route: Active 014 Medical [Neurontin] PO, Drug Center form: CAP, Q8H, Dosing Weight 81.818, kg, Start date: 02/19/14 0:00:00, Duration: 30 day, Stop date: 03/20/14 16:00:00Not es: (Same as: Neurontin) Simvastatin 40 mg, 1 Inactive [facility] tab, Route: 014 Medical PO, Drug Center form: TAB, Bedtime, Dosing Weight 81.818, kg, Start date: 02/18/14 21:00:00, Duration: 30 day, Stop date: 03/19/14 21:00:00Not es: (Same as: Zocor) Restoril 30 mg, 2 Inactive [facility] cap, Route: 014 Medical PO, Drug Center form: CAP, Bedtime, PRN Sleep, Start date: 02/18/14 18:21:00, Duration: 30 day, Stop date: 03/20/14 18:20:00Not es: (Same As: Restoril) Bentyl 20 mg, 1 Inactive [facility] tab, Route: 014 Medical PO, Drug Center form: TAB, Q6H, Dosing Weight 81.818, kg, PRN Other -See Comment, Start date: 02/18/14 17:55:00, Stop date: 03/20/14 17:54:00, irritable bowelNotes: (Same as: Bentyl) Metoclopramide 10 10 mg, 1 Inactive [facility] MG Oral Tablet tab, Route: 014 Medical [Reglan] PO, Drug Center form: TAB, QID-Before Meals, Dosing Weight 81.818, kg, PRN Nausea, Start date: 02/18/14 17:54:00, Stop date: 03/20/14 17:53:00Not es: (Same as: Reglan) Take 30 min before meals Lorazepam 1 mg, 1 Inactive [facility] tab, Route: 014 Medical PO, Drug Center form: TAB, BID, Dosing Weight 81.818, kg, PRN as needed for anxiety, Start date: 02/18/14 17:53:00, Stop date: 03/20/14 17:52:00Not es: (Same as: Ativan) Lunesta 3 mg, Inactive [facility] Route: PO, 014 Medical Drug form: Center TAB, Bedtime, Dosing Weight 81.818, kg, PRN as needed for insomnia, Start date: 02/18/14 17:53:00, Stop date: 03/20/14 17:52:00 meclizine 25 mg 25 mg=1 On Hold [facility] oral tablet tab, PO, 014 Medical TID, for Center dizziness, # 60 tab, 0 Refill(s) losartan 50 mg 50 mg=1 On Hold [facility] oral tablet tab, PO, 014 Medical Daily, # 30 Center tab, 0 Refill(s) omeprazole 40 mg 40 mg=1 On Hold [facility] oral delayed cap, PO, 014 Medical release capsule Daily, # 30 Center cap, 0 Refill(s) promethazine 12.5 12.5 mg=1 On Hold [facility] mg oral tablet tab, PO, 014 Medical Q4H, Nausea Center & Vomiting, # 60 tab, 0 Refill(s) ezetimibe 10 MG 10 mg=1 On Hold [facility] Oral Tablet tab, PO, 014 Medical [Zetia] Daily, # 30 Center tab, 0 Refill(s) gabapentin 300 MG 300 mg=1 On Hold [facility] Oral Capsule cap, PO, 014 Medical [Neurontin] TID, # 90 Center cap, 0 Refill(s) clopidogrel 75 mg, 1 Inactive [facility] tab, Route: 014 Medical PO, Drug Center form: TAB, Daily, Dosing Weight 81.818, kg, Start date: 02/18/14 9:00:00, Duration: 30 day, Stop date: 03/19/14 9:00:00Note s: (Same As: Plavix) Aspirin 325 MG 325 mg, 1 Inactive [facility] Enteric Coated tab, Route: 014 Medical Tablet PO, Drug Center form: ECTAB, Daily, Dosing Weight 81.818, kg, Start date: 02/18/14 9:00:00, Duration: 30 day, Stop date: 03/19/14 9:00:00Note s: (Do Not Crush) Do not crush or chew. Keppra 500 mg, 1 Inactive [facility] tab, Route: 014 Medical PO, Drug Center form: TAB, Q12H, Dosing Weight 81.818, kg, Priority: NOW, Start date: 02/18/14 4:30:00, Duration: 30 day, Stop date: 03/19/14 21:00:00Not es: (Same as:Keppra) tramadol 50 mg, 1 Inactive [facility] hydrochloride 50 tab, Route: 014 Medical MG Oral Tablet PO, Drug Center form: TAB, Q6H, Dosing Weight 81.818, kg, PRN Pain, Start date: 02/18/14 4:12:00, Duration: 30 day, Stop date: 03/20/14 4:11:00Note s: Not to exceed 400mg/day. (Same As: Ultram) Lorazepam 0.5 mg, Inactive [facility] 0.25 mL, 014 Medical Route: IV, Center Drug form: INJ, ONCE, Dosing Weight 81.818, kg, Start date: 02/18/14 1:30:00, Stop date: 02/18/14 1:30:00Note s: (Same as: Ativan) Loratadine 10 mg, 1 Inactive [facility] tab, Route: 014 Medical PO, Drug Center form: TAB, Daily, Dosing Weight 81.818, kg, PRN Allergies, Start date: 02/18/14 0:28:00, Duration: 30 day, Stop date: 03/20/14 0:27:00Note s: 1 hr before meals (Same as: Claritin) Ondansetron 4 mg, Inactive [facility] Route: IVP, 014 Medical Drug form: Center INJ, ONCE, Dosing Weight 81.818, kg, Priority: STAT, Start date: 02/17/14 23:19:00, Stop date: 02/17/14 23:19:00 Benadryl 25 mg, Inactive [facility] Route: IVP, 014 Medical ONCE, Center Dosing Weight 81.818, kg, PRN Itching, Start date: 02/17/14 22:50:00 Meclizine 0 Refill(s) No Longer [address] Losartan 0 Refill(s) No Longer [address] Promethazine 0 Refill(s) No Longer [address] Zetia 0 Refill(s) No Longer [address] Rogaine 0 Refill(s) No Longer [address] Lunesta 0 Refill(s) No Longer [address] Lipitor 80 mg, 1 No Longer [facility] tab, Route: Active 014 Medical PO, Drug Center form: TAB, Bedtime, Dosing Weight 81.818, kg, Start date: 02/17/14 21:00:00, Duration: 30 day, Stop date: 03/18/14 21:00:00Not es: Same as Lipitor Saline Flush 0.9% 10 ml, No Longer [facility] Route: IVP, Active 014 Medical Drug Form: [place] INJ, Dosing Weight 81.818, kg, Q12H, Start date: 02/17/14 21:00:00, Duration: 30 day, Stop date: 03/19/14 9:00:00Note s: (Same as: BD Posiflush) Famotidine 20 mg, 1 No Longer [facility] tab, Route: Active 014 Medical PO, Drug Center form: TAB, Q12H, Dosing Weight 81.818, kg, Start date: 02/17/14 21:00:00, Duration: 30 day, Stop date: 03/19/14 9:00:00Note s: (Same as: Pepcid) Tylenol 650 mg, Inactive [facility] Route: PO, 014 Medical Drug form: [place] TAB, ONCE, Dosing Weight 81.818, kg, Priority: [...] tablet tab, PO, Active 014 Medical BID [place] simvastatin 40 mg 40 mg=1 On Hold [place] oral tablet tab, PO, 014 Medical Daily, # 30 Center tab, 0 Refill(s) montelukast 10 MG 10 mg=1 On Hold [place] Oral Tablet tab, PO, 014 Medical [Singulair] QAM, as Center needed for allergies (in the Spring only), # 30 tab, 0 Refill(s) metoprolol 50 mg=1 On Hold [facility] tartrate 50 mg tab, PO, 014 Medical oral tablet BID, # 180 Center tab, 0 Refill(s) LORazepam 1 mg 1 mg=1 tab, On Hold [place] oral tablet PO, BID, 014 [facility] Anxiety [place] Zofran 4 mg, Inactive [facility] Route: IVP, 014 Medical Drug form: Center INJ, ONCE, Dosing Weight 81.818, kg, Priority: STAT, Start date: 02/17/14 16:53:00, Stop date: 02/17/14 16:53:00 heparin, porcine 5,000 unit, No Longer [place] 1 mL, Active 014 Medical Route: [place] SUB-Q, Drug form: INJ, Q8H, Dosing Weight 81.818, kg, (For patients weighing Notes: porcine heparin Saline Flush 0.9% 10 ml, Inactive [facility] Route: IVP, 014 Medical Drug Form: Center INJ, Dosing Weight 81.818, kg, PRN, PRN Line Flush, Start date: 02/17/14 15:43:00, Duration: 30 day, Stop date: 03/19/14 14:42:00 Labetalol 10 mg, 2 No Longer [facility] mL, Route: Active 014 Medical IVP, Drug Center form: INJ, Q10Min, Dosing Weight 81.818, kg, PRN Hypertensio n, Start date: 02/17/14 15:43:00, Stop date: 03/20/14 0:41:00, For SBP > 190mmHg and/or DBP > 105mmHg Acetaminophen 650 mg, 2 No Longer [facility] tab, Route: Active 014 Medical PO, Drug Center form: TAB, Q4H, Dosing Weight 81.818, kg, PRN Pain 1-3/Temp > 99.5 F, Start date: 02/17/14 15:43:00, Duration: 30 day, Stop date: 03/19/14 15:42:00Not es: Do not exceed 4 gm/day. (Same as: Tylenol) Sodium Chloride 1,000 mL, No Longer [facility] 0.154 MEQ/ML Rate: 100 Active [facility] Injectable ml/hr, [place] Solution Infuse over: 10 hr, Route: IV, Dosing Weight 81.818 kg, Total Volume: 1,000, Start date: 02/17/14 15:43:00, Duration: 30 day, Stop date: 03/19/14 15:42:00 Plavix 300 mg, 1 Inactive [facility] tab, Route: 014 Medical PO, Drug Center form: TAB, ONCE, Dosing Weight 81.818, kg, Priority: STAT, Start date: 02/17/14 15:42:00, Stop date: 02/17/14 15:42:00Not es: ( Same as: Plavix) aspirin 324 mg, 4 Inactive [facility] tab, Route: 014 Medical CHEW, Drug Center form: CHEWTAB, ONCE, Dosing Weight 81.818, kg, Priority: STAT, Start date: 02/17/14 15:42:00, Stop date: 02/17/14 15:42:00Not es: Take with food. Sodium Chloride 1,000 mL, Inactive [place] 0.154 MEQ/ML 1,000 014 Medical Injectable ml/hr, [place] Solution Infuse Over: 1 hr, Route: IV, 1,000, Drug form: INJ, ONCE, Priority: STAT, Dosing Weight 81.818 kg, Start date: 02/17/14 15:16:00, Duration: 1 doses or times, Stop date: 02/17/14 15:16:00 iodixanol 120 mL, Inactive [facility] Route: IVP, 014 Medical Drug Form: [place] SOLN, Dosing Weight 81.818, kg, ONCALL, STAT, Start date: 02/17/14 13:55:00, Duration: 1 doses or times, Dose=2.2ml/ kg, Max cpze=421tm -- "To be infused by Radiology Staff ONLY"Specia l Instruction s: Dose=2.2ml/ kg, Max sqqg=669th -- "To be infused by Radiology Staff ONLY" iodixanol 120 mL, Inactive [facility] Route: IVP, 014 Medical Drug Form: [place] SOLN, Dosing Weight 81.818, kg, ONCALL, STAT, Start date: 02/17/14 13:51:00, Duration: 1 doses or times, Dose=2.2ml/ kg, Max avfr=069gg -- "To be infused by Radiology Staff ONLY"Specia l Instruction s: Dose=2.2ml/ kg, Max fpeh=737ei -- "To be infused by Radiology Staff ONLY" Sodium Chloride 1,000 mL, Inactive [facility] 0.154 MEQ/ML 1,000 014 Medical Injectable ml/hr, [place] Solution Infuse Over: 1 hr, Route: IV, 1,000, Drug form: INJ, ONCE, Priority: STAT, Dosing Weight 81.818 kg, Start date: 02/17/14 12:51:00, Duration: 1 doses or times, Stop date: 02/17/14 12:51:00 Saline Flush 0.9% 10 mL, No Longer [facility] Route: IVP, Active 014 Medical Drug Form: [place] INJ, Dosing Weight 81.818, kg, PRN, PRN [...] SPECIAL Hgb A1C 6.6 <=5.6 % 02/18 [facility] CHEMISTRY [facility] LIPIDS CHD Risk 3.80 3.90 - 02/18 [facility] 5.80 [facility] LIPIDS Chol 167 <=199 02/18 [facility] mg/dL [facility] LIPIDS HDL 44 >=61 mg/dL 02/18 [facility] LIPIDS Trig 182 <=149 02/18 [facility] mg/dL [facility] LIPIDS VLDL 36 02/18 [facility] LIPIDS LDL 87 <=99 mg/dL 02/18 [facility] (Calculated) [facility] ANEMIA % [place] 34 12 - 57 02/18 [facility] STUDY [facility] ANEMIA TIBC 342 228 - 428 02/18 [facility] STUDY [facility] ANEMIA UIBC 227 110 - 370 02/18 [facility] ANEMIA Iron 115 30 - 160 02/18 [facility] ANEMIA Ferritin Lvl 97 5 - 204 02/18 [facility] CHEM PANEL Lactic Acid 1.9 0.5 - 2.2 02/17 [facility] Lvl [facility] URINE AND UA Mucus None Seen None Seen 02/17 [facility] STOOL (02/17/14 2:18 PM) [facility] URINE AND UA Sq Epi Few /LPF Few /LPF 02/17 [facility] STOOL [facility] URINE AND UA RBC None Seen 0 - 2 02/17 [facility] STOOL (02/17/14 2:18 PM) [facility] URINE AND UA Bacteria Occasional None Seen 02/17 [facility] STOOL /HPF /HPF [facility] URINE AND UA WBC 0-2 /HPF None Seen 02/17 [facility] STOOL /HPF [facility] URINE AND UA Spec Grav 1.020 <=1.030 02/17 [facility] STOOL [facility] URINE AND UA Color Yellow Yellow 02/17 [facility] STOOL *NA* /2014 Medical (02/17/14 2:18 PM) Center URINE AND UA Turbidity Clear Clear 02/17 [facility] (02/17/14 2:18 PM) [facility] URINE AND UA Leuk Est Negative Negative 02/17 [facility] (02/17/14 2:18 PM) [facility] URINE AND UA Nitrite Negative Negative 02/17 [facility] (02/17/14 2:18 PM) [facility] URINE AND UA 0.2 0.1 - 1.0 02/17 [facility] Urobilinogen /2013 [facility] URINE AND UA Blood Negative Negative 02/17 [facility] (02/17/14 2:18 PM) [facility] URINE AND UA Bili Negative Negative 02/17 [facility] *NA* [facility] (02/17/14 2:18 PM) [place] URINE AND UA Glucose Negative Negative 02/17 [facility] (02/17/14 2:18 PM) [facility] URINE AND UA Ketones Negative Negative 02/17 [facility] *NA* [facility] (02/17/14 2:18 PM) [place] URINE AND UA Protein Negative Negative 02/17 [facility] (02/17/14 2:18 PM) [facility] URINE AND UA pH 6.5 5.0 - 8.0 02/17 [facility] STOOL [facility] CARDIAC CK MB 3.4 0.5 - 3.6 02/17 [facility] ENZYMES [facility] CARDIAC Troponin-I 0.07 0.00 - 02/17 [facility] ENZYMES 0.40 [facility] CARDIAC Total CK 123 12 - 191 02/17 [facility] ENZYMES [facility] CARDIAC CK MB Index 2.8 0.0 - 2.5 02/17 [facility] ENZYMES [facility] CHEM PANEL eGFR 02/17 <sup>1</sup>R esult Medical [...] PANEL Creatinine 1.4 0.5 - 1.4 02/17 [facility] l [facility] CHEM PANEL Glucose Lvl 211 70 - 99 02/17 <sup>2</sup>I nterpretive Medical Data: Adult Center reference range values reflect the clinical guidelines
of the [place] [employer]. CHEM PANEL BUN 13 7 - 22 02/17 [facility] CHEM PANEL B/C Ratio 9 6 - 25 02/17 [facility] CHEM PANEL AGAP 16.8 10.0 - 02/17 [facility] 20. [facility] CHEM PANEL Calcium Lvl 8.8 8.5 - 10.5 02/17 [facility] CHEM PANEL CO2 23 24 - 32 02/17 [facility] CHEM PANEL Chloride Lvl 105 95 - 109 02/17 [facility] CHEM PANEL Sodium Lvl 141 135 - 145 02/17 [facility] CHEM PANEL Potassium Lvl 3.8 3.5 - 5.1 02/17 [facility] CHEM PANEL A/G Ratio 1.0 0.7 - 1.6 02/17 [facility] CHEM PANEL Total Protein 7.0 6.4 - 8.4 02/17 [facility] CHEM PANEL Albumin Lvl 3.5 3.5 - 5.0 02/17 [facility] CHEM PANEL AST 24 0 - 37 02/17 [facility] CHEM PANEL ALT 28 0 - 65 02/17 [facility] CHEM PANEL Bili Total 0.6 0.2 - 1.3 02/17 [facility] CHEM PANEL Alk Phos 94 39 - 136 02/17 [facility] CHEM PANEL Globulin 3.5 2.0 - 4.0 02/17 [facility] CHEM PANEL Lactic Acid 4.9 0.5 - 2.2 02/17 <sup>3</sup>R [facility] Lvl esult Medical Comment: Center Critical Result(s) called to Dr. Stefanie Tamez at 02/17/2014 12:[address] Read back OK. HEMATOLOGY INR 0.95 0.85 - 02/17 <sup>4</sup>I [facility] 1.17 nterpretive Medical Data: Center RECOMMENDED RANGES FOR PROTIME INR:
2.0-3.0 for most medical and surgical thromboemboli c states.
2.5-3.5 for artificial heart valves and recurrent embolism.<br/ >
INR SHOULD BE USED ONLY FOR PATIENTS ON STABLE ANTICOAGULANT THERAPY. HEMATOLOGY PT 12.7 12.0 - 02/17 [facility] 14.7 [facility] HEMATOLOGY Platelet 205 133 - 450 02/17 [facility] HEMATOLOGY MCH 29.0 27.0 - 02/17 [facility] 31.0 [facility] HEMATOLOGY MCHC 33.7 32.0 - 02/17 [facility] 36.0 /2013 [facility] HEMATOLOGY RDW 13.6 11.5 - 02/17 [facility] 14.5 /2013 [facility] HEMATOLOGY Hct 51.8 36.0 - 02/17 [facility] 48.0 /2013 [facility] HEMATOLOGY MCV 86.2 80.0 - 02/17 [facility] 98.0 /2013 [facility] HEMATOLOGY Hgb 17.4 12.0 - 02/17 [facility] 16.0 /2013 [facility] HEMATOLOGY RBC 6.01 4.20 - 02/17 [facility] 5.40 /2013 [facility] HEMATOLOGY MPV 11.5 7.4 - 10.4 02/17 [facility] HEMATOLOGY WBC 14.1 3.7 - 10.4 02/17 [facility] HEMATOLOGY PTT 21.8 22.9 - 02/17 <sup>5</sup>I [facility] 35.8 nterpretive Medical Data: Heparin Center Therapeutic Range: 57 - 92 Second[facility] HEMATOLOGY Plt Morph Normal 02/17 [facility] (02/17/14 12:09 PM) [facility] HEMATOLOGY RBC Morph Normal 02/17 [facility] (02/17/14 12:09 PM) /2013 [facility] HEMATOLOGY Eosinophils # 0.1 0.0 - 0.5 02/17 [facility] HEMATOLOGY Basophils # 0.1 0.0 - 0.2 02/17 [facility] HEMATOLOGY Segs-Bands # 10.8 1.5 - 8.1 02/17 [facility] HEMATOLOGY Monocytes # 0.6 0.0 - 0.8 02/17 [facility] HEMATOLOGY Lymphocytes # 2.5 1.0 - 5.5 02/17 [facility] HEMATOLOGY Lymphocytes 17.5 20.0 - 02/17 [place] 40.0 [facility] HEMATOLOGY Segs 77.0 45.0 - 02/17 [place] 75.0 [facility] HEMATOLOGY Monocytes 4.3 2.0 - 12.0 02/17 [facility] HEMATOLOGY Basophils 0.4 0.0 - 1.0 02/17 [facility] HEMATOLOGY Eosinophils 0.8 0.0 - 4.0 02/17 [facility] Pathology Reports No Data Provided for This Section Diagnostic Reports No Data Provided for This Section Consultation Notes No Data Provided for This Section Discharge Summaries No Data Provided for This Section History and Physicals No Data Provided for This Section Vital Signs Vital Sign Value Date Comments Source Weight 55.455 10/29/2018 [facility] Neuro BMI Calculated 22.36 10/29/2018 [facility] Height 157.48 cm 10/29/2018 [facility] Systolic (mm Hg) 136 10/29/2018 [facility] Diastolic (mm Hg) 86 10/29/2018 [facility] Respitory Rate 16 10/29/2018 [facility] Heart Rate 71 10/29/2018 [facility] Weight 57.273 09/27/2018 [facility] BMI Calculated 23.86 09/27/2018 [facility] Neuro Height 154.94 cm 09/27/2018 [facility] Neuro Respitory Rate 16 09/27/2018 [facility] Neuro Systolic (mm Hg) 153 09/27/2018 [facility] Diastolic (mm Hg) 85 09/27/2018 [facility] Neuro Heart Rate 60 09/27/2018 [facility] Systolic (mm Hg) 195 02/18/2014 [facility] Diastolic (mm Hg) 92 02/18/2014 [facility] Respitory Rate 18 02/18/2014 [facility] Systolic (mm Hg) 159 02/18/2014 [facility] Diastolic (mm Hg) 91 02/18/2014 [facility] Respitory Rate 27 02/18/2014 [facility] Systolic (mm Hg) 144 02/18/2014 [facility] Diastolic (mm Hg) 77 02/18/2014 [facility] Respitory Rate 27 02/18/2014 [facility] Temperature Oral (F) 99.5 F 02/18/2014 [facility] Height 172.72 cm 02/17/2014 [facility] BMI Calculated 27.43 02/17/2014 [facility] Weight 81.818 02/17/2014 [facility] Heart Rate 120 02/17/2014 [facility] Encounters Location Location Encounter Encounter Reason Attending ADM DC Status Source Details Type Number For Provider Date Date Visit [facility] [id number] [place] [facility] Out[facility] [id number] Oscar 09/27 09/28 [facility] Neurology [facility] /2018 [facility] [place] Out[facility] [id number] Oscar 10/29 [facility] [place] M[facility] Outpatient [id number] Oscar 10/29 10/30 [facility] Neurology [facility] /2018 [facility] [place] Outpatient [id number] Oscar 12/[address] [facility] [place] MNA Ambulatory [id number] Oscar 12/10 12/10 [facility] Neurology Pre-Reg [facility] [place] Outpatient [id number] Oscar 01/15 [facility] [place] Procedures Procedure Code Date Perfomer Comments Source Back fusion [id number] [facility] Assessment and Plan Assessment and Plan Date Source Extracted from:Title: Stroke Fellow H/P 02/19/2014 [facility] Author: Robert Martinez MD Date: [...] left side. 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 She is otherwise fully independent per [...] son in his 40s, hypertension, father of [place], mother of lung cancer. SOCIAL HISTORY: The [...] and vibration throughout. Coordination: no dysmetria on [id number]. Reflexes: R Biceps 2+, Triceps 2+, Brachioradialis 2+, Patella 2+, Ankle 2+. L Biceps 2+, Triceps 2+, Brachioradialis 2+, Patella 2+, Ankle 2+. Toes downgoing bilaterally. Gait: not tested. NIH Stroke Scale (NIHSS) 1a. Level of Consciousness; 0-alert 1-drowsy 2-stupor 3-comatose 0 1b. LOC Questions month and age; 0-both 1-one 2-neither 1 (said she was 62) 1c. LOC Commands open/close eyes, instrumentation technician/release non-paretic hand; 0-both 1-one 2-neither 𔖅 0 2. Best Gaze; 0-nl 1-partial 2-forced gaze 0 3. Visual Quesada; 0-No visual loss. 1-Partial hemianopia 2-Complete 3- Bilateral 摓0 4. Facial Palsy; 0-none 1-minor 2-partial 3-complete 0 5. Motor - R arm; 0-No drift 1-Drift 2-Some antigravity 3-No antigravity 4-No movement 锃 0 6. Motor - R leg; 0-No drift 1-Drift 2-Some antigravity 3-No antigravity 4-No movement 𐹋 0 7. Motor - L arm; 0-No drift 1-Drift 2-Some antigravity 3-No antigravity 4-No movement 딧 0 8. Motor - L leg; 0-No drift 1-Drift 2-Some antigravity 3-No antigravity 4-No movement 慕 0 9. Limb Ataxia; 0 absent 1 - 1limb 2 - 2 limbs 0 10. Sensory; 0-nl 1-partial loss 2-dense loss 0 11. Best Language; 0-nl 1-mild/mod 2-severe 3-mute 0 12. Dysarthria; 0-nl 1-mild/mod 2-severe x-untestable 0 13. 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 - Laterally projecting 3 [...] symptomatic intracranial atherosclerosis as [facility]. DIFFERENTIAL DIAGNOSIS TIA vs. seizure vs. syncope. PLAN - Admit to stroke unit. - ASA 325mg daily and Plavix load (300 mg) was given in the ER. Patient will be maintained on ASA 325 and Plavix 75 for three months per the [facility]. - Atorvastatin 80mg daily has been ordered. - TTE to evaluate for cardiac source of embolus. - Routine EEG - Stroke labs: fasting lipid panel and hemoglobin A1c. - IVNS 125cc/hr. - Permissive hypertension. - Treat fevers and blood sugars aggressively. - PT/OT/VENEER PATCHER consults - rehab assessments have been ordered. [...] AStormy Martinez MD Vascular Neurology fellow MSO# [id number] Pager# [phone] STROKE STAFF I have personally evaluated the [...] most evident in the left MCA, bilateral manager english and basilar artery. Laterally projecting 3 mm [...] cerebral hypoperfusion 401.9, HTN, malignant 288.6, leukocytosis 82429 Plan of Care No Data Provided for This Section Social History Social History Date Source Social History TypeResponse 02/18/2014 [facility] Substance Abuse Use: None Sexual [...]
[2019-01-06] MEDS ORDERED: dexAMETHasone 10 MG/ML VIAL ONE (05:35)
[2019-01-06] MEDS ORDERED: HYDROCODONE/APAP 5/325 MG TAB ONE (05:35)
[2019-01-06] MEDS ORDERED: METOCLOPRAMIDE 10 MG/2mL INJ ONE (05:36)
[2019-01-06] MEDS ORDERED: NA CHLORIDE 0.9% 500 ML ONE (05:36)
--- NOTE | 2019-01-06 06:38 | EDPHYS ---
Physician Documentation [facility] Name: Amber Acosta Age: 73 yrs Sex: Female : 1945 Arrival Date: 01/06/2019 Time: 05:21 Bed 8 Private MD: ED Physician Jaxson Rios HPI: 01/06 05:31 This 73 yrs old Female presents to ER via Unassigned with complaints of rn Headache. 05:31 The patient complains of pain to the top of head. The patient describes the headache as rn aching. Onset: The symptoms/episode began/occurred this morning. Associated signs and symptoms: The patient has no apparent associated signs or symptoms, Pertinent negatives: altered mental status, fever, neck stiffness, rash, vision changes, vision loss, vomiting, weakness, vertigo. Severity of symptoms: At its worst the pain was moderate, "similar to past headaches", in the emergency department the pain is unchanged. The symptoms are alleviated by nothing. the symptoms are aggravated by nothing. The patient has experienced similar episodes in the past. The patient has been recently been admitted at [facility]. Historical: - Allergies: 05:36 Bees; bb 05:36 Codeine; bb 05:36 hydrocodone bitartrate; bb 05:36 Levofloxacin; bb 05:36 METRONIDAZOLE; bb 05:36 PENICILLINS; bb 05:36 SHELLFISH; bb 05:36 sulfamethoxazole; bb 05:36 TRIMETHOPRIM; bb 05:36 Wasps; bb - Home Meds: 05:36 amlodipine 10 mg tab 1 tab once daily [Active]; atorvastatin 50mg Oral 1 tab AT NIGHT bb [Active]; donepezil 5 mg Oral TbDL 1 tab once daily [Active]; doxazosin 2 mg Oral tab 1 tab once daily [Active]; Ecotrin 325 mg Oral TbEC 1 tab once daily [Active]; Effexor 3 tabs Oral 75 mg daily [Active]; gabapentin 100 mg Oral cap 3 caps 3 times per day [Active]; lorazepam 1 mg Oral tab 1 tab once daily for Anxiety [Active]; Lunesta 3 mg Oral tab 1 tab once daily [Active]; metformin 500 mg Oral tab 1 tab 2 times per day [Active]; metoprolol tartrate 50 mg Oral tab 1 tab 2 times per day [Active]; pantoprazole 20 mg Oral TbEC 1 tab once daily [Active]; - PMHx: 05:36 Alzheimers; Anxiety; CAD; Depression; Diabetes - NIDDM; GERD; High Cholesterol; bb Hypertension; kidney cancer; Migraines; CVA; - PSHx: 05:36 Knee surgery; Hysterectomy; brain surgery; Appendectomy; bb - Immunization history:: Adult Immunizations up to date. - Social history:: Smoking status: Patient/guardian denies using tobacco. - Family history:: not pertinent. - Ebola Screening: : No symptoms or risks identified at this time. - Hospitalizations: : No recent hospitalization is reported. ROS: 05:31 Constitutional: Negative for fever, chills, and weight loss, Eyes: Negative for injury, rn pain, redness, and discharge, Neck: Negative for injury, pain, and swelling, Cardiovascular: Negative for chest pain, palpitations, and edema, Respiratory: Negative for shortness of breath, cough, wheezing, and pleuritic chest pain, Abdomen/GI: Negative for abdominal pain, nausea, vomiting, diarrhea, and constipation, MS/Extremity: Negative for injury and deformity, Skin: Negative for injury, rash, and discoloration, Neuro: Negative for weakness, numbness, tingling, and seizure. Exam: 05:31 Constitutional: This is a well developed, well nourished patient who is awake, alert, rn and in no acute distress. Ambulatory from triage Head/Face: Normocephalic, atraumatic. Eyes: Pupils equal round and reactive to light, extra-ocular motions intact. Lids and lashes normal. Conjunctiva and sclera are non-icteric and not injected. Cornea within normal limits. Periorbital areas with no swelling, redness, or edema. Cardiovascular: Regular rate and rhythm. No pulse deficits. Respiratory: Lungs have equal breath sounds bilaterally, clear to auscultation. No increased work of breathing, no retractions or nasal flaring. Abdomen/GI: Soft, non-tender MS/ Extremity: Pulses equal, no cyanosis. Neurovascular intact. Full, normal range of motion. Equal circumference. Neuro: Awake and alert, GCS 15, oriented to person, place, time, and situation. Cranial nerves II-XII grossly intact. Motor strength 5/5 in all extremities. Sensory grossly intact. Cerebellar exam normal. Normal gait. Vital Signs: 05:36 BP 132 / 65; Pulse 67; Resp 16 S; Temp 97.9(O); Pulse Ox 99% on R/A; Weight 63.5 kg bb (R); Height 5 ft. 2 in. (157.48 cm) (R); Pain 6/10; 06:07 BP 114 / 61; Pulse 78; Resp 18; Pulse Ox 98% ; ea 06:43 BP 115 / 64; Pulse 55; Resp 18; Temp 97.6; Pulse Ox 97% ; ea 07:46 BP 106 / 64; Pulse 57; Resp 17; Pulse Ox 100% on R/A; tw2 09:06 BP 120 / 70; Pulse 57; Resp 17; Pulse Ox 96% on R/A; tw2 10:00 BP 110 / 75; Pulse 60; Resp 17; Pulse Ox 98% on R/A; tw2 10:43 BP 113 / 74; Pulse 61; Resp 17; Pulse Ox 98% on R/A; tw2 05:36 Body Mass Index 25.61 (63.50 kg, 157.48 cm) bb [place] Coma Score: 06:36 Eye Response: spontaneous(4). Verbal Response: oriented(5). Motor Response: obeys rn commands(6). Total: 15. MDM: 05:26 Patient medically screened. rn 05:40 ED course: Pt states has headaches daily, no known diagnosis, takes tylenol for it. rn 06:36 Differential diagnosis: hypertensive headache, migraine, tension headache, vasomotor rn headache. Data reviewed: vital signs, nurses notes, radiologic studies, CT scan, and as a result, I will discharge patient. Counseling: I had a detailed discussion with the patient and/or guardian regarding: the historical points, exam findings, and any diagnostic results supporting the discharge/admit diagnosis, radiology results, the need for outpatient follow up, to return to the emergency department if symptoms worsen or persist or if there are any questions or concerns that arise at home. Response to treatment: the patient's symptoms have markedly improved after treatment. Special discussion: I discussed with the patient/guardian in detail that at this point there is no indication for admission to the hospital. It is understood, however, that if the symptoms persist or worsen the patient needs to return immediately for re-evaluation. 01/06 05:31 Order name: CT Head Brain wo Cont rn 01/06 05:31 Order name: IV Start; Complete Time: 06:14 rn Administered Medications: 06:09 Drug: Decadron - Dexamethasone 10 mg Route: IVP; Site: right antecubital; rr5 06:50 Follow up: Response: No adverse reaction ea 06:10 Drug: NS 0.9% 500 ml Route: IV; Rate: bolus; Site: right antecubital; rr5 10:44 Follow up: Response: No adverse reaction; IV Status: Completed infusion; IV Intake: tw2 500ml 06:12 Drug: [place] 5 mg-325 mg 1 tabs {Note: rass 0.} Route: PO; rr5 06:50 Follow up: Response: No adverse reaction; Pain is decreased ea 06:14 Drug: Reglan 10 mg Route: IVP; Site: right antecubital; rr5 06:50 Follow up: Response: No adverse reaction ea Disposition: 01/06/19 06:37 Discharged to Home. Impression: Headache. - Condition is Stable. - Discharge Instructions: General Headache Without Cause, Migraine Headache. - Medication Reconciliation Form, Thank You Letter, Antibiotic Education, Prescription Opioid Use form. - Follow up: Private Physician; When: As needed; Reason: Recheck today's complaints, Re-evaluation by your physician. - Problem is new. - Symptoms have improved. Signatures: Dispatcher [employer] EDChari Giordano RN RN Jaxson Marquez MD MD rn Wise, Tara, RN RN tw2 Kiley Richardson RN RN ea Roque, Raymond RN RN rr5 Corrections: (The following items were deleted from the chart) 10:45 06:37 01/06/2019 06:37 Discharged to Home. Impression: Headache. Condition is Stable. tw2 Discharge Instructions: General Headache Without Cause, Migraine Headache. Forms are Medication Reconciliation Form, Thank You Letter, Antibiotic Education, Prescription Opioid Use. Follow up: Private Physician; When: As needed; Reason: Recheck today's complaints, Re-evaluation by your physician. Problem is new. Symptoms have improved. rn
--- NOTE | 2019-01-06 06:38 | ER ---
Nurse's Notes [facility] Name: Amber Acosta Age: 73 yrs Sex: Female : 1945 Arrival Date: 01/06/2019 Time: 05:21 Bed 8 Private MD: Diagnosis: Headache Presentation: 01/06 05:33 Presenting complaint: Patient states: she woke up tonight with a sudden onset of a bb headache denies nausea or vomiting. Transition of care: patient was not received from another setting of care. Onset of symptoms was January 06, 2019. Risk Assessment: Do you want to hurt yourself or someone else? Patient reports no desire to harm self or others. Initial Sepsis Screen: Does the patient meet any 2 criteria? No. Patient's initial sepsis screen is negative. Does the patient have a suspected source of infection? No. Patient's initial sepsis screen is negative. Care prior to arrival: None. 05:33 Method Of Arrival: Ambulatory bb 05:33 Acuity: IVETTE 2 bb Historical: - Allergies: 05:36 Bees; bb 05:36 Codeine; bb 05:36 hydrocodone bitartrate; bb 05:36 Levofloxacin; bb 05:36 METRONIDAZOLE; bb 05:36 PENICILLINS; bb 05:36 SHELLFISH; bb 05:36 sulfamethoxazole; bb 05:36 TRIMETHOPRIM; bb 05:36 Wasps; bb - Home Meds: 05:36 amlodipine 10 mg tab 1 tab once daily [Active]; atorvastatin 50mg Oral 1 tab AT NIGHT bb [Active]; donepezil 5 mg Oral TbDL 1 tab once daily [Active]; doxazosin 2 mg Oral tab 1 tab once daily [Active]; Ecotrin 325 mg Oral TbEC 1 tab once daily [Active]; Effexor 3 tabs Oral 75 mg daily [Active]; gabapentin 100 mg Oral cap 3 caps 3 times per day [Active]; lorazepam 1 mg Oral tab 1 tab once daily for Anxiety [Active]; Lunesta 3 mg Oral tab 1 tab once daily [Active]; metformin 500 mg Oral tab 1 tab 2 times per day [Active]; metoprolol tartrate 50 mg Oral tab 1 tab 2 times per day [Active]; pantoprazole 20 mg Oral TbEC 1 tab once daily [Active]; - PMHx: 05:36 Alzheimers; Anxiety; CAD; Depression; Diabetes - NIDDM; GERD; High Cholesterol; bb Hypertension; kidney cancer; Migraines; CVA; - PSHx: 05:36 Knee surgery; Hysterectomy; brain surgery; Appendectomy; bb - Immunization history:: Adult Immunizations up to date. - Social history:: Smoking status: Patient/guardian denies using tobacco. - Family history:: not pertinent. - Ebola Screening: : No symptoms or risks identified at this time. - Hospitalizations: : No recent hospitalization is reported. Screenin:34 Abuse screen: Denies threats or abuse. Nutritional screening: No deficits noted. ea Tuberculosis screening: No symptoms or risk factors identified. Fall Risk None identified. Assessment: 05:34 General: Appears uncomfortable, Behavior is calm, cooperative. Pain: Complains of pain ea in top of head Pain currently is 6 out of 10 on a pain scale. Neuro: Level of Consciousness is awake, alert, obeys commands, Oriented to person, place, situation, Speech is normal, Facial symmetry appears normal. Cardiovascular: Patient's skin is warm and dry. Respiratory: Airway is patent Respiratory effort is even, unlabored, Respiratory pattern is regular, symmetrical. Derm: Skin is pink, warm \\T\\ dry. Musculoskeletal: Circulation, motion, and sensation intact. 06:07 Reassessment: Patient and/or family updated on plan of care and expected duration. Pain ea level reassessed. Patient is alert, oriented x 3, equal unlabored respirations, skin warm/dry/pink. 06:51 Reassessment: Patient and/or family updated on plan of care and expected duration. Pain ea level reassessed. Patient is alert, oriented x 3, equal unlabored respirations, skin warm/dry/pink. Discharge instruction given to patient, verbalized the understanding of instruction. Pt reports she has no way to get home at this time. States her sister Cristela will be able to pick her up at 0730. Phone number [phone]. 07:46 Reassessment: Patient appears in no apparent distress at this time. Patient and/or tw2 family updated on plan of care and expected duration. Pain level reassessed. Patient is alert, oriented x 3, equal unlabored respirations, skin warm/dry/pink. 07:49 Reassessment: spoke with Cristela Jessie, she stated "they were going to do an MRI last time tw2 and she emmanuel paniced and wanted to go home so i was hoping they would do that today", educated as to need to follow up with neurologist and that MRI's were not typically done in the ER, she will come get pt shortly. 09:06 Reassessment: Patient appears in no apparent distress at this time. Patient and/or tw2 family updated on plan of care and expected duration. Pain level reassessed. Patient is alert, oriented x 3, equal unlabored respirations, skin warm/dry/pink. 09:58 Reassessment: pt states "I dont get along with Cristela but she drives my car and she may tw2 not come and get me, but you can call her to get Edna Pate's phone number and she might come get me", called number for Cristela no answer, left voicemail. 10:30 Reassessment: EMS called for transportation. tw2 10:43 Reassessment: Patient appears in no apparent distress at this time. Patient and/or tw2 family updated on plan of care and expected duration. Pain level reassessed. Patient is alert, oriented x 3, equal unlabored respirations, skin warm/dry/pink. Vital Signs: 05:36 BP 132 / 65; Pulse 67; Resp 16 S; Temp 97.9(O); Pulse Ox 99% on R/A; Weight 63.5 kg bb (R); Height 5 ft. 2 in. (157.48 cm) (R); Pain 6/10; 06:07 BP 114 / 61; Pulse 78; Resp 18; Pulse Ox 98% ; ea 06:43 BP 115 / 64; Pulse 55; Resp 18; Temp 97.6; Pulse Ox 97% ; ea 07:46 BP 106 / 64; Pulse 57; Resp 17; Pulse Ox 100% on R/A; tw2 09:06 BP 120 / 70; Pulse 57; Resp 17; Pulse Ox 96% on R/A; tw2 10:00 BP 110 / 75; Pulse 60; Resp 17; Pulse Ox 98% on R/A; tw2 10:43 BP 113 / 74; Pulse 61; Resp 17; Pulse Ox 98% on R/A; tw2 05:36 Body Mass Index 25.61 (63.50 kg, 157.48 cm) bb [place] Coma Score: 06:36 Eye Response: spontaneous(4). Verbal Response: oriented(5). Motor Response: obeys rn commands(6). Total: 15. ED Course: 05:21 Patient arrived in ED. ag3 05:26 Jaxson Rios MD is Attending Physician. rn 05:34 Kiley Richardson RN is Primary Nurse. ea 05:34 Triage completed. bb 05:35 Patient has correct armband on for positive identification. Bed in low position. Call ea light in reach. Side rails up X2. 05:36 Arm band placed on Patient placed in an exam room, on a stretcher, on pulse oximetry. bb 06:07 Pulse ox on. NIBP on. rr5 06:07 Inserted saline lock: 22 gauge in right antecubital area, using aseptic technique. rr5 Blood collected. 07:02 Report given to Shakira COVARRUBIAS. ea 07:02 No provider procedures requiring assistance completed. ea 07:11 Primary Nurse role handed off by Kiley Richardson RN tw2 07:11 Shakira Dent RN is Primary Nurse. tw2 07:12 Awaiting transportation, Awaiting: pt does not have a ride home, asked us to call tw2 friend Cristela Roman at PH [phone] after 730. 07:14 CT Head Brain wo Cont In Process Unspecified. EDMS 10:45 IV discontinued, intact, bleeding controlled, No redness/swelling at site. Pressure tw2 dressing applied. Administered Medications: 06:09 Drug: Decadron - Dexamethasone 10 mg Route: IVP; Site: right antecubital; rr5 06:50 Follow up: Response: No adverse reaction ea 06:10 Drug: NS 0.9% 500 ml Route: IV; Rate: bolus; Site: right antecubital; rr5 10:44 Follow up: Response: No adverse reaction; IV Status: Completed infusion; IV Intake: tw2 500ml 06:12 Drug: [place] 5 mg-325 mg 1 tabs {Note: rass 0.} Route: PO; rr5 06:50 Follow up: Response: No adverse reaction; Pain is decreased ea 06:14 Drug: Reglan 10 mg Route: IVP; Site: right antecubital; rr5 06:50 Follow up: Response: No adverse reaction ea Intake: 10:44 IV: 500ml; Total: 500ml. tw2 Outcome: 06:37 Discharge ordered by . rn 06:53 Discharge instructions given to patient, Instructed on discharge instructions, follow ea up and referral plans. Demonstrated understanding of instructions, follow-up care. 10:44 Discharged to home via wheelchair, via [facility] tw2 10:44 Condition: stable 10:45 Patient left the ED. tw2 Signatures: Dispatcher [employer] EDMS Chari Higgins, RN RN Jaxson Marquez MD MD rn Wise, Tara, RN RN tw2 Kiley Richardson RN Silvia Matos ea ag3 Cam Olson, RN RN rr5 Corrections: (The following items were deleted from the chart) 06:43 06:43 BP 115 / 64; Pulse 55bpm; Resp 18bpm; Pulse Ox 97%; ea ea
--- NOTE | 2019-01-06 09:51 | RAD REPORT ---
EXAM DESCRIPTION: CT - Head Brain Wo Cont - 01/06/2019 8:18 am CLINICAL HISTORY: The patient is 73 years old and is Female; HEADACHE TECHNIQUE: Axial computed tomography images of the head/brain without intravenous contrast. Sagitt al and coronal reformatted images were created and reviewed. This CT exam was performed using one o r more of the following dose reduction techniques: automated exposure control, adjustment of the mA and/or kV according to patient size, and/or use of iterative reconstruction technique. COMPARISON: CT of the head February 19, 2018. FINDINGS: BRAIN: There is diffuse cerebral atrophy present, consistent with this patient's age. There is patchy hypoattenuation of the deep white matter which is non-specific, but most likely owing to chronic small vessel ischemic change in a patient of this age group. Bilateral basal ganglia ca lcifications are present. Evidence of prior bilateral basal ganglia lacunar infarcts are noted. N o intracranial hemorrhage, mass effect, or midline shift is seen. There are no extra-axial fluid maykel ections. VENTRICLES: Unremarkable. No ventriculomegaly. BONES/JOINTS: No acute fracture. SOFT TISSUES: Unremarkable. VASCULATURE: Atherosclerosis of intracranial vasculature is noted. SINUSES: Unremarkable as visualized. No acute sinusitis. MASTOID AIR CELLS: Unremarkable as visualized. No mastoid effusion. ORBITS: Unremarkable as visualized. IMPRESSION: Age-related atrophy and chronic white matter ischemic changes, with no evidence of an ac [place] intracranial abnormality. Electronically signed by: Radha Brown MD 01/06/2019 6:23 AM CDT Due to temporary technical issues with the PACS/Fluency reporting system, reports are being signed by the in house radiologist as a courtesy to ensure prompt reporting. The interpreting radiologist is f ully responsible for the content of the report.
[2019-01-06 11:22] VITALS: TEMP 97.6
[2019-01-06 11:27] VITALS: O2SAT 98
[2019-01-06 11:28] VITALS: BP 113/74
== END 2019-01-06 10:45 | disposition home or self-care (01) ==
LOC: ER 05:18
DX: R51 Headache (principal); I10 Essential (primary) hypertension; E11.9 Type 2 diabetes mellitus without complications; E78.00 Pure hypercholesterolemia, unspecified; F41.9 Anxiety disorder, unspecified; G30.9 Alzheimer's disease, unspecified; F02.80 Dementia in other diseases classified elsewhere, unspecified severity, without behavioral disturbance, psychotic disturbance, mood disturbance, and anxiety; F32.9 Major depressive disorder, single episode, unspecified; Z88.0 Allergy status to penicillin; Z88.2 Allergy status to sulfonamides; Z88.5 Allergy status to narcotic agent; Z88.8 Allergy status to other drugs, medicaments and biological substances; Z85.528 Personal history of other malignant neoplasm of kidney; Z86.73 Personal history of transient ischemic attack (TIA), and cerebral infarction without residual deficits; Z91.013 Allergy to seafood; Z91.030 Bee allergy status; Z91.038 Other insect allergy status
CPT/HCPCS: 96361; 70450; 96375; 96374; 99284; J2765; J1100

== ENCOUNTER 2019-01-30 10:36 | Inpatient (IN) | payer OTHER ==
--- NOTE | 2019-01-30 11:44 | RAD REPORT ---
EXAM DESCRIPTION: CT - Stone Protocol - 01/30/2019 11:33 am CLINICAL HISTORY: Flank pain. ABD PAIN COMPARISON: Abdomen Pelvis Wo Contrast dated 12/12/2018; Abdomen Pelvis Wo Contrast dated 9 TECHNIQUE: Axial images were obtained without oral or IV contrast. Lack of contrast limits solid org an and vascular assessment. The [id number] spans the entirety of the system partially obscuring uppermost abdomen and lung bases. Coronal reformatted images were obtained and reviewed. All CT scans are performed using dose optimization technique as appropriate and may include automated exposure control or mA/KV adjustment according to patient size. FINDINGS: The lower lung quesada are clear. Cholecystectomy clips noted. Imaged portions of the liver and spleen show no suspicious findings on non-contrast imaging. The panc reas and adrenal glands are normal. No pathologic lymphadenopathy in the abdomen or pelvis. Postsurgical changes are present involving the inferolateral left kidney. 4 mm stone is present mid-p ole right kidney. No hydronephrosis. No bowel obstruction, free air, free fluid or abscess. Normal appendix noted.There is inflammatory ch anges, mild to moderate in severity involving the sigmoid colon. No abscess. No significant bony abnormality. IMPRESSION: Mild to moderate sigmoid acute diverticulitis is present without abscess. Small nonobstructing right renal calculus.
[2019-01-30 12:18] LABS: Absolute Lymphocytes (CBC) 1.2 K/uL (0.7-4.9); Basophils % 0.4 % (0-1.3); Hematocrit 39.3 % (36.0-45.0); Lymphocytes % 12.9 % (15.3-44.8); MPV 9.3 fL (7.6-11.3); RBC Red Blood Cell Count 4.38 M/uL (3.86-4.86)
[2019-01-30] MEDS ORDERED: CEFOXITIN/SWI 1gm 1 GM/10 ML SYR ONE (12:34)
[2019-01-30] MEDS ORDERED: KETOROLAC 30 MG/ML INJ ONE (12:34)
[2019-01-30 12:35] LABS: Albumin 3.4 g/dL (3.4-5.0); Bilirubin Direct 0.1 mg/dL (0-0.2); Bilirubin Total 0.4 mg/dL (0.2-1.0); Potassium 3.6 mmol/L (3.5-5.1); Protein, Total 6.9 g/dL (6.4-8.2)
--- NOTE | 2019-01-30 12:59 | ER ---
Nurse's Notes [facility] Name: Amber Acosta Age: 73 yrs Sex: Female : 1945 Arrival Date: 01/30/2019 Time: 10:39 Bed 5 Private MD: Lorraine Donnelly Diagnosis: Diverticulitis of large intestine without perforation or abscess without bleeding Presentation: 01/30 10:57 Presenting complaint: Patient states: diarrhea and abdominal pain for the past day. hx ch of diverticulitis. Transition of care: patient was not received from another setting of care. Onset of symptoms was January 29, 2019. Risk Assessment: Do you want to hurt yourself or someone else? Patient reports no desire to harm self or others. Initial Sepsis Screen: Does the patient meet any 2 criteria? No. Patient's initial sepsis screen is negative. Does the patient have a suspected source of infection? No. Patient's initial sepsis screen is negative. Care prior to arrival: None. 10:57 Method Of Arrival: Ambulatory 10:57 Acuity: IVETTE 3 ch Triage Assessment: 11:00 General: Appears in no apparent distress. Behavior is calm, cooperative. ch Historical: - Allergies: 11:00 Bees; 11:00 Codeine; 11:00 hydrocodone bitartrate; 11:00 Levofloxacin; 11:00 METRONIDAZOLE; 11:00 PENICILLINS; 11:00 SHELLFISH; 11:00 sulfamethoxazole; 11:00 TRIMETHOPRIM; 11:00 Wasps; ch - Home Meds: 11:00 amlodipine 10 mg oral tab [Active]; atorvastatin 50mg Oral 1 tab AT NIGHT [Active]; ch donepezil 5 mg Oral TbDL 1 tab once daily [Active]; doxazosin 2 mg Oral tab 1 tab once daily [Active]; Ecotrin 325 mg Oral TbEC 1 tab once daily [Active]; Effexor 3 tabs Oral 75 mg daily [Active]; gabapentin 100 mg Oral cap 3 caps 3 times per day [Active]; lorazepam 1 mg Oral tab 1 tab once daily for Anxiety [Active]; Lunesta 3 mg Oral tab 1 tab once daily [Active]; metformin 500 mg Oral tab 1 tab 2 times per day [Active]; metoprolol tartrate 50 mg Oral tab 1 tab 2 times per day [Active]; pantoprazole 20 mg Oral TbEC 1 tab once daily [Active]; - PMHx: 11:00 Alzheimers; Anxiety; CAD; CVA; Depression; Diabetes - NIDDM; GERD; High Cholesterol; ch Hypertension; kidney cancer; Migraines; - PSHx: 11:00 Knee surgery; Hysterectomy; brain surgery; Appendectomy; ch - Immunization history:: Adult Immunizations up to date. - Social history:: Smoking status: Patient/guardian denies using tobacco. - Ebola Screening: : Patient negative for fever greater than or equal to 101.5 degrees Fahrenheit, and additional compatible Ebola Virus Disease symptoms Patient denies exposure to infectious person Patient denies travel to an Ebola-affected area in the 21 days before illness onset No symptoms or risks identified at this time. Screenin:23 Abuse screen: Denies threats or abuse. Denies injuries from another. Nutritional hb screening: No deficits noted. Tuberculosis screening: No symptoms or risk factors identified. Fall Risk None identified. Assessment: 11:24 Reassessment: Pt to CT via wheelchair. hb 11:50 Reassessment: Pt returned from CT. hb 12:01 General: Appears in no apparent distress. Behavior is calm, cooperative. Pain: Denies hb pain. Neuro: Level of Consciousness is awake, alert, obeys commands, Oriented to person, place, time, situation. Cardiovascular: Capillary refill < 3 seconds Patient's skin is warm and dry. Respiratory: Airway is patent Respiratory effort is even, unlabored, Respiratory pattern is regular, symmetrical. GI: Abdomen is non-distended, Bowel sounds present X 4 quads. Abd is soft and non tender X 4 quads. Reports diarrhea, Patient currently denies pain. : No signs and/or symptoms were reported regarding the genitourinary system. EENT: No signs and/or symptoms were reported regarding the EENT system. Derm: Skin is intact, is healthy with good turgor, Skin is pink, warm \T\ dry. Musculoskeletal: 12:55 Reassessment: Patient appears in no apparent distress at this time. Patient and/or hb family updated on plan of care and expected duration. Pain level reassessed. Patient is alert, oriented x 3, equal unlabored respirations, skin warm/dry/pink. 13:45 Reassessment: Patient appears in no apparent distress at this time. Patient and/or hb family updated on plan of care and expected duration. Pain level reassessed. Patient is alert, oriented x 3, equal unlabored respirations, skin warm/dry/pink. 14:45 Reassessment: Patient appears in no apparent distress at this time. Patient and/or hb family updated on plan of care and expected duration. Pain level reassessed. Patient is alert, oriented x 3, equal unlabored respirations, skin warm/dry/pink. 15:19 Reassessment: Attempted to call report to floor, room not assigned at this time. hb 15:45 Reassessment: Patient appears in no apparent distress at this time. Patient and/or hb family updated on plan of care and expected duration. Pain level reassessed. Patient is alert, oriented x 3, equal unlabored respirations, skin warm/dry/pink. Vital Signs: 11:00 BP 114 / 74; Pulse 77; Resp 16; Temp 98.6; Pulse Ox 99% on R/A; Weight 57.15 kg; Height 5 ft. 2 in. (157.48 cm); Pain 8/10; 12:30 BP 156 / 75; Pulse 74; Resp 15; Pulse Ox 100% on R/A; hb 13:30 BP 156 / 76; Pulse 79; Resp 14; Pulse Ox 100% on R/A; Pain 0/10; hb 14:30 BP 160 / 80; Pulse 74; Resp 15; Pulse Ox 100% on R/A; hb 15:30 BP 155 / 78; Pulse 72; Resp 15; Pulse Ox 100% on R/A; hb 11:00 Body Mass Index 23.05 (57.15 kg, 157.48 cm) ED Course: 10:39 Patient arrived in ED. as 10:39 Lorraine Donnelly MD is Private Physician. as 10:58 Triage completed. 11:00 Arm band placed on left wrist. Patient placed in an exam room, on a stretcher. 11:03 Anish Lugo MD is Attending Physician. 11:23 Patient has correct armband on for positive identification. Placed in gown. Bed in low hb position. Call light in reach. Side rails up X 1. 11:27 Chio Chavez, MARCI is Primary Nurse. hb 11:34 CT Stone Protocol In Process Unspecified. EDMS 11:55 Missed attempt(s): 20 gauge in right antecubital area. Bleeding controlled, band aid hb applied, catheter tip intact. 12:03 Initial lab(s) drawn, by me, sent to lab. Inserted saline lock: 22 gauge in right dh3 antecubital area, using aseptic technique. Blood collected. 12:58 Jade Paez MD is Hospitalizing Provider. gs 16:01 No provider procedures requiring assistance completed. hb 16:01 Patient admitted, IV remains in place. hb Administered Medications: 12:38 Drug: cefOXitin 1 grams {Note: administered slow IVP per pharmacy at this time .} aa5 Route: IVPB; Infused Over: 30 mins; Site: right antecubital; 12:40 Follow up: IV Status: Completed infusion; IV Intake: 10ml hb 12:43 Follow up: Response: No adverse reaction aa5 Intake: 12:40 IV: 10ml; Total: 10ml. hb Outcome: 12:58 Decision to Hospitalize by Provider. gs 16:00 Admitted to Med/surg accompanied by tech, family with patient, via wheelchair, room hb 212, Report called to MARCI Gtz 16:00 Condition: stable 16:00 Instructed on the need for admit, Demonstrated understanding of instructions. 16:02 Patient left the ED. Signatures: Dispatcher [employer] EDRody Morin, RN Amara Colin ch, Audri, RN RN aa5 Chio Chavez RN RN Feliciano, Kathy [facility] Anish Lugo MD MD
--- NOTE | 2019-01-30 12:59 | EDPHYS ---
Physician Documentation [facility] Name: Amber Acosta Age: 73 yrs Sex: Female : 1945 Arrival Date: 01/30/2019 Time: 10:39 Bed 5 Private MD: Lorraine Donnelly ED Physician Anish Lugo HPI: 01/30 14:08 This 73 yrs old Female presents to ER via Ambulatory with complaints of gs Diarrhea. 14:08 The patient presents to the emergency department with diarrhea. gs 15:17 Onset: The symptoms/episode began/occurred yesterday. Possible causes: unknown. gs Associated signs and symptoms: Pertinent positives: abdominal pain, Pertinent negatives: GI bleeding. Severity of symptoms: At their worst the symptoms were severe in the emergency department the symptoms are unchanged. The patient has experienced similar episodes in the past, a few times. The patient has not recently seen a physician. Historical: - Allergies: 11:00 Bees; ch 11:00 Codeine; ch 11:00 hydrocodone bitartrate; 11:00 Levofloxacin; 11:00 METRONIDAZOLE; 11:00 PENICILLINS; 11:00 SHELLFISH; 11:00 sulfamethoxazole; ch 11:00 TRIMETHOPRIM; 11:00 Wasps; ch - Home Meds: 11:00 amlodipine 10 mg oral tab [Active]; atorvastatin 50mg Oral 1 tab AT NIGHT [Active]; ch donepezil 5 mg Oral TbDL 1 tab once daily [Active]; doxazosin 2 mg Oral tab 1 tab once daily [Active]; Ecotrin 325 mg Oral TbEC 1 tab once daily [Active]; Effexor 3 tabs Oral 75 mg daily [Active]; gabapentin 100 mg Oral cap 3 caps 3 times per day [Active]; lorazepam 1 mg Oral tab 1 tab once daily for Anxiety [Active]; Lunesta 3 mg Oral tab 1 tab once daily [Active]; metformin 500 mg Oral tab 1 tab 2 times per day [Active]; metoprolol tartrate 50 mg Oral tab 1 tab 2 times per day [Active]; pantoprazole 20 mg Oral TbEC 1 tab once daily [Active]; - PMHx: 11:00 Alzheimers; Anxiety; CAD; CVA; Depression; Diabetes - NIDDM; GERD; High Cholesterol; ch Hypertension; kidney cancer; Migraines; - PSHx: 11:00 Knee surgery; Hysterectomy; brain surgery; Appendectomy; ch - Immunization history:: Adult Immunizations up to date. - Social history:: Smoking status: Patient/guardian denies using tobacco. - Ebola Screening: : Patient negative for fever greater than or equal to 101.5 degrees Fahrenheit, and additional compatible Ebola Virus Disease symptoms Patient denies exposure to infectious person Patient denies travel to an Ebola-affected area in the 21 days before illness onset No symptoms or risks identified at this time. ROS: 15:17 Constitutional: Negative for fever. gs 15:17 All other systems are negative. Exam: 15:17 Head/Face: Normocephalic, atraumatic. Eyes: Pupils equal round and reactive to light, gs extra-ocular motions intact. Lids and lashes normal. Conjunctiva and sclera are non-icteric and not injected. Cornea within normal limits. Periorbital areas with no swelling, redness, or edema. ENT: Nares patent. No nasal discharge, no septal abnormalities noted. Tympanic membranes are normal and external auditory canals are clear. Oropharynx with no redness, swelling, or masses, exudates, or evidence of obstruction, uvula midline. Mucous membranes moist. Neck: Trachea midline, no thyromegaly or masses palpated, and no cervical lymphadenopathy. Supple, full range of motion without nuchal rigidity, or vertebral point tenderness. No Meningismus. Chest/axilla: Normal chest wall appearance and motion. Nontender with no deformity. No lesions are appreciated. Cardiovascular: Regular rate and rhythm with a normal S1 and S2. No gallops, murmurs, or rubs. Normal PMI, no JVD. No pulse deficits. Respiratory: Lungs have equal breath sounds bilaterally, clear to auscultation and percussion. No rales, rhonchi or wheezes noted. No increased work of breathing, no retractions or nasal flaring. Back: No spinal tenderness. No costovertebral tenderness. Full range of motion. Skin: Warm, dry with normal turgor. Normal color with no rashes, no lesions, and no evidence of cellulitis. MS/ Extremity: Pulses equal, no cyanosis. Neurovascular intact. Full, normal range of motion. Neuro: Awake and alert, GCS 15, oriented to person, place, time, and situation. Cranial nerves II-XII grossly intact. Motor strength 5/5 in all extremities. Sensory grossly intact. Cerebellar exam normal. Normal gait. 15:17 Constitutional: The patient appears alert, awake. 15:17 Abdomen/GI: Palpation: moderate abdominal tenderness, in the suprapubic area, right lower quadrant and left lower quadrant, rebound tenderness, is not appreciated. Vital Signs: 11:00 BP 114 / 74; Pulse 77; Resp 16; Temp 98.6; Pulse Ox 99% on R/A; Weight 57.15 kg; Height ch 5 ft. 2 in. (157.48 cm); Pain 8/10; 12:30 BP 156 / 75; Pulse 74; Resp 15; Pulse Ox 100% on R/A; hb 13:30 BP 156 / 76; Pulse 79; Resp 14; Pulse Ox 100% on R/A; Pain 0/10; hb 14:30 BP 160 / 80; Pulse 74; Resp 15; Pulse Ox 100% on R/A; hb 15:30 BP 155 / 78; Pulse 72; Resp 15; Pulse Ox 100% on R/A; hb 11:00 Body Mass Index 23.05 (57.15 kg, 157.48 cm) ch MDM: 11:35 Patient medically screened. 15:17 Differential diagnosis: Nonspecific abd pain, gastritis, pancreatitis, diverticulitis. Data reviewed: vital signs, nurses notes, lab test result(s). Counseling: I had a detailed discussion with the patient and/or guardian regarding: the historical points, exam findings, and any diagnostic results supporting the discharge/admit diagnosis, the need for further work-up and treatment in the hospital. Response to treatment: the patient's symptoms have mildly improved after treatment. 01/30 11:19 Order name: Basic Metabolic Panel; Complete Time: 12:56 01/30 11:19 Order name: CBC with Diff; Complete Time: 12:56 01/30 11:19 Order name: Hepatic Function; Complete Time: 12:56 01/30 11:19 Order name: Lipase; Complete Time: 12:56 01/30 11:19 Order name: Occult Blood 01/30 11:19 Order name: Stool Culture 01/30 11:19 Order name: IV Saline Lock; Complete Time: 12:03 01/30 11:19 Order name: Labs collected and sent; Complete Time: 12:03 01/30 11:19 Order name: CDIFF 01/30 11:19 Order name: CT Stone Protocol; Complete Time: 12:08 01/30 14:22 Order name: Diet Clear Liquid; Complete Time: 14:22 bd Administered Medications: 12:38 Drug: cefOXitin 1 grams {Note: administered slow IVP per pharmacy at this time .} aa5 Route: IVPB; Infused Over: 30 mins; Site: right antecubital; 12:40 Follow up: IV Status: Completed infusion; IV Intake: 10ml hb 12:43 Follow up: Response: No adverse reaction aa5 Disposition: 01/30/19 12:58 Hospitalization ordered by Jade Paez for Inpatient Admission. Preliminary diagnosis is Diverticulitis of large intestine without perforation or abscess without bleeding. - Bed requested for Telemetry/MedSurg (Inpatient). - Status is Inpatient Admission. hb - Condition is Stable. - Problem is new. - Symptoms are unchanged. UTI on Admission? No Signatures: Dispatcher [employer] EDMS Rody Sanchez RN RN Carmen Edgar RN RN aa5 Chio Chavez RN RN Anish Lugo MD MD Jody Camarillo Corrections: (The following items were deleted from the chart) 15:03 12:58 Hospitalization Ordered by Jade Paez MD for Inpatient Admission. Preliminary gm diagnosis is Diverticulitis of large intestine without perforation or abscess without bleeding. Bed requested for Telemetry/MedSurg (Inpatient). Status is Inpatient Admission. Condition is Stable. Problem is new. Symptoms are unchanged. UTI on Admission? No. gs 16:02 15:03 01/30/2019 12:58 Hospitalization Ordered by Jade Paez MD for Inpatient hb Admission. Preliminary diagnosis is Diverticulitis of large intestine without perforation or abscess without bleeding. Bed requested for Telemetry/MedSurg (Inpatient). Status is Inpatient Admission. Condition is Stable. Problem is new. Symptoms are unchanged. UTI on Admission? No.
[2019-01-30] MEDS ORDERED: ONDANSETRON 4 MG/2 ML VIAL IV PRN (15:31)
[2019-01-30 16:30] VITALS: BMI 19.7
[2019-01-30] MEDS: INSULIN -REGULAR HUMAN 50 UNIT/0.5 ML ML SQ SCH ×2 (16:30→21:00)
[2019-01-30] MEDS: ENOXAPARIN 40 MG/0.4 ML SQ SCH (17:05)
[2019-01-30] MEDS: NA CHLORIDE 0.9% 1,000 ML IV SCH (17:06)
[2019-01-30] MEDS ORDERED: POTASSIUM CL SA 10 MEQ TAB PO ONE (18:00)
--- NOTE | 2019-01-30 18:48 | P.HP ---
Certification for Inpatient Patient admitted to: Inpatient Practitioner: I am a practitioner with admitting privileges, knowledge of patient current condition, hospital course, and medical plan of care. Services: Services provided to patient in accordance with Admission requirements found in Title 42 Section 412.3 of the Code of Federal Regulations Patient History Date of Service: 01/30/19 Reason for admission: Abdominal pain and diarrhea History of Present Illness: This is a 73-year-old female with past medical history of Alzheimer's, anxiety, CAD, eth-yukncyw-azentzkso diabetes hyperlipidemia and hypertension presented to the emergency room with complaints of diarrhea for 1 week that has been progressively worsening. It was relieved at the morning of admission, therefore she came to the emergency room. She states that the diarrhea was nonbloody. Associated with mild abdominal pain. At a previous episodes like this before, diagnosed with acute therefore she came to the emergency room. She denies any chest pain, shortness of breath, headache, dizziness, vision changes, fevers or chills, or complaints. In the ER, blood pressure was 114/74, heart rate of 77, respirations of 16, afebrile at 98.6 and satting 99% on room air. Her BMI is 23.05. She received cefoxitin in the ER. Labs were fairly unremarkable. CT scan of the abdomen showed acute diverticulitis, mild. As patient has multiple antibiotic allergies , she was admitted for IV antibiotics. That, she was alert oriented x3, in no acute distress. Her symptoms have resolved and her diarrhea had resolved Allergies sulfamethoxazole [From Bactrim] Allergy (Severe, Verified 09/04/12 06:00) Anaphylaxis trimethoprim [From Bactrim] Allergy (Severe, Verified 09/04/12 06:00) Anaphylaxis venom-honey bee [bee venom (honey bee)] Allergy (Severe, Verified 08/21/11 21:55 ) Anaphylaxis ciprofloxacin [From Cipro] Allergy (Unknown, Verified 12/13/18 14:30) Unknown codeine [Codeine] Allergy (Verified 08/21/11 15:51) Hives metronidazole [From Flagyl] Allergy (Verified 12/13/18 13:54) Itching Penicillins Allergy (Verified 07/23/18 18:23) Unknown Shellfish Adverse Reaction (Intermediate, Verified 08/21/11 21:55) Nausea/Vomiting levofloxacin [From Levaquin] Adverse Reaction (Verified 08/21/11 21:53) Itching/Hives/Rash Bees Allergy (Uncoded 07/27/15 16:19) Unknown codeine Allergy (Uncoded 06/05/14 02:04) Hives/Rash PCN Allergy (Uncoded 10/17/14 18:15) Unknown Wasps Allergy (Uncoded 07/27/15 16:19) Unknown Home Medications: RX: Lorazepam [Ativan] 1 mg PO TID 12/12/18 RX: Metformin HCl 500 mg PO BID 6AM 6PM 12/12/18 RX: Metoprolol Succinate [Toprol Xl] 50 mg PO BID 6AM 6PM 12/12/18 RX: Tramadol HCl [Ultram] 50 mg PO BID PRN 12/12/18 RX: Eszopiclone [Lunesta] 3 mg PO BEDTIME #1 tablet 12/13/18 RX: Amlodipine [Norvasc*] 1 tab PO DAILY 01/30/19 RX: Atorvastatin Calcium [Lipitor] 1 tab PO BEDTIME 01/30/19 RX: Gabapentin [Neurontin*] 1 tab PO BID 01/30/19 RX: Pantoprazole [Protonix Tab*] 20 mg PO DAILY 01/30/19 Venlafaxine HCl *Xr* [Effexor XR] 1 tab PO BID 01/30/19 - Past Medical/Surgical History Has patient received pneumonia vaccine in the past: Yes Diabetic: Yes -: Migraine headache -: HTN -: History of CVA -: Anxiety -: Hyperlipidemia -: Diverticulosis -: Diabetes mellitus type 2 [id number] -: HYSTERECTOMY -: RENAL SX Psychosocial/ Personal History: Patient lives with sister. - Family History Father -: Heart disease, Hypertension Notes: CAD Brother -: Heart disease, Hypertension Notes: TRIPLE BYPASS - Social History Smoking Status: Never smoker Alcohol use: No CD- Drugs: No Caffeine use: No Place of Residence: Home Review of Systems 10-point ROS is otherwise unremarkable Physical Examination - Vital Signs Temperature: 97.2 F Blood Pressure: 142/76 Pulse: 75 Respirations: 18 Pulse Ox (%): 96 - Physical Exam General: Alert, In no apparent distress HEENT: Atraumatic, PERRLA, Mucous membr. moist/pink, EOMI, Sclerae nonicteric Neck: Supple, 2+ carotid pulse no bruit, No LAD, Without JVD or thyroid abnormality Respiratory: Clear to auscultation bilaterally, Normal air movement Cardiovascular: Regular rate/rhythm, Normal S1 S2 Gastrointestinal: Normal bowel sounds, No tenderness Musculoskeletal: No tenderness Integumentary: No rashes Neurological: Normal gait, Normal speech, Normal strength at 5/5 x4 extr, Normal tone, Normal affect Lymphatics: No axilla or inguinal lymphadenopathy - Studies Laboratory Data (last 24 hrs) 01/30/19 12:03: WBC 9.5, Hgb 13.6, Hct 39.3, Plt Count 244 01/30/19 12:03: Sodium 145, Potassium 3.6, BUN 17, Creatinine 1.10, Glucose 93, Total Bilirubin 0.4, AST 18, ALT 25, Alkaline Phosphatase 66, Lipase 84 Microbiology Data (last 24 hrs): 01/30/19 11:19 Stool Occult Blood - Final GENERAL REPAIRER Assessment and Plan - Problems (Diagnosis) (1) Anxiety Status: Acute (2) Acute diverticulitis Status: Acute (3) Diabetes mellitus type 2 in nonobese Status: Chronic - Plan Admit to floor with tele -continue IV antibiotics -IV hydration -pain control, as needed -Zofran for nausea as needed -will send stool studies, C. diff testing -will discuss with pharmacy in regards to on alternative for oral antibiotics for discharge. -start clear liquid diet, advance as tolerated Disposition: Anticipate discharge once workup is back and symptomatically improved. - Advance Directives Does patient have a Living Will: Yes Does patient have a Durable POA for Healthcare: Yes Time Spent Managing Pts Care (In Minutes): 55
[2019-01-30] MEDS ORDERED: INFLUENZA VACCINE (for 3y+) 0.5 ML DOSE IMVAC ONE (21:00)
[2019-01-30] MEDS ORDERED: ACETAMINOPHEN 500 MG TAB PO ONE (21:21)
[2019-01-30 21:35] LABS: Urine Appearance CLEAR; Urine Bilirubin NEGATIVE (NEG); Urine Blood NEGATIVE (NEG); Urine Color YELLOW; Urine Glucose NEGATIVE (NEG); Urine Protein NEGATIVE (NEG); Urine Urobilinogen 0.2 mg/dL (0.2-1.0)
[2019-01-30 21:45] LABS: Urine Microscopic Reflex NO UMIC
[2019-01-30] MEDS ORDERED: ESZOPICLONE 1 MG TAB PO SCH (21:46)
[2019-01-30] MEDS ORDERED: TRAMADOL HCL 50 MG TAB PO PRN (21:46)
[2019-01-30] MEDS: METOPROLOL XL 100 MG TAB PO SCH (22:19)
[2019-01-30] MEDS: LORAZEPAM 1 MG TABLET PO SCH (22:19)
[2019-01-30] MEDS ORDERED: ESZOPICLONE 1 MG TAB ONE ×2 (22:47→22:51)
[2019-01-31] MEDS: NA CHLORIDE 0.9% 1,000 ML IV SCH (03:30)
[2019-01-31] MEDS ORDERED: METFORMIN HCL 500 MG TAB PO SCH (06:00)
[2019-01-31 06:13] LABS: Absolute Lymphocytes (CBC) 2.4 K/uL (0.7-4.9); Basophils % 0.6 % (0-1.3); Hematocrit 38.9 % (36.0-45.0); Lymphocytes % 35.2 % (15.3-44.8); MPV 9.9 fL (7.6-11.3); RBC Red Blood Cell Count 4.34 M/uL (3.86-4.86)
[2019-01-31 06:36] LABS: Albumin 3.3 g/dL (3.4-5.0); Bilirubin Total 0.4 mg/dL (0.2-1.0); Potassium 3.9 mmol/L (3.5-5.1); Protein, Total 6.6 g/dL (6.4-8.2)
[2019-01-31] MEDS: METOPROLOL XL 100 MG TAB PO SCH (06:38)
[2019-01-31] MEDS: INSULIN -REGULAR HUMAN 50 UNIT/0.5 ML ML SQ SCH (07:30)
[2019-01-31 08:25] VITALS: O2SAT 98
[2019-01-31] MEDS: LORAZEPAM 1 MG TABLET PO SCH (08:30)
[2019-01-31] MEDS: ENOXAPARIN 40 MG/0.4 ML SQ SCH (08:36)
[2019-01-31] MEDS ORDERED: GABAPENTIN 100 MG CAP PO SCH (09:00)
[2019-01-31] MEDS ORDERED: PANTOPRAZOLE 40MG TABLET PO SCH (09:00)
[2019-01-31] MEDS ORDERED: AMLODIPINE 10 MG TAB PO SCH (09:00)
[2019-01-31] MEDS ORDERED: VENLAFAXINE HCL XR 75 MG CAP PO SCH (09:00)
[2019-01-31] MEDS ORDERED: POTASSIUM CL SA 10 MEQ TAB PO ONE (09:00)
[2019-01-31 12:49] VITALS: BP 142/76; TEMP 97.2
--- NOTE | 2019-01-31 12:50 | P.DS ---
Admission Date: 01/30/19 Discharge Date: 01/31/19 Disposition: AMA-LEFT AGAINST MEDICAL ADVIC Reason for Admission: Abdominal pain and diarrhea - Problems (1) Anxiety Status: Acute (2) Acute diverticulitis Status: Acute (3) Diabetes mellitus type 2 in nonobese Status: Chronic Brief History of Present Illness: This is a 73-year-old female with past medical history of Alzheimer's, anxiety, CAD, igj-nnkslju-sxndtudwn diabetes hyperlipidemia and hypertension presented to the emergency room with complaints of diarrhea for 1 week that has been progressively worsening. It was relieved at the morning of admission, therefore she came to the emergency room. She states that the diarrhea was nonbloody. Associated with mild abdominal pain. At a previous episodes like this before, diagnosed with acute therefore she came to the emergency room. She denies any chest pain, shortness of breath, headache, dizziness, vision changes, fevers or chills, or complaints. In the ER, blood pressure was 114/74, heart rate of 77, respirations of 16, afebrile at 98.6 and satting 99% on room air. Her BMI is 23.05. She received cefoxitin in the ER. Labs were fairly unremarkable. CT scan of the abdomen showed acute diverticulitis, mild. As patient has multiple antibiotic allergies , she was admitted for IV antibiotics. That, she was alert oriented x3, in no acute distress. Her symptoms have resolved and her diarrhea had resolved Hospital Course: Patient was admitted, started on IV antibiotics. She did well throughout the stay. Was going to discharge patient on an oral antibiotic alternative. But prior to me seeing her, patient left AMA. It was explained to the patient the risks of leaving AMA, patient still decided to leave AMA. Vital Signs/Physical Exam: Temp Pulse Resp BP Pulse Ox 97.2 F 75 18 142/76 H 96 01/31/19 12:48 01/31/19 12:48 01/31/19 12:48 01/31/19 12:48 01/31/19 12:48 Laboratory Data at Discharge: WBC 6.7 K/uL (4.3-10.9) D 01/31/19 05:15 Hgb 13.4 g/dL (12.0-15.0) 01/31/19 05:15 Hct 38.9 % (36.0-45.0) 01/31/19 05:15 Plt Count 236 K/uL (152-406) 01/31/19 05:15 Sodium 144 mmol/L (136-145) 01/31/19 05:15 Potassium 3.9 mmol/L (3.5-5.1) 01/31/19 05:15 BUN 10 mg/dL (7-18) 01/31/19 05:15 Creatinine 0.78 mg/dL (0.55-1.3) 01/31/19 05:15 Glucose 85 mg/dL (74-106) 01/31/19 05:15 Total Bilirubin 0.4 mg/dL (0.2-1.0) 01/31/19 05:15 AST 22 U/L (15-37) 01/31/19 05:15 ALT 26 U/L (12-78) 01/31/19 05:15 Alkaline Phosphatase 58 U/L (45-117) 01/31/19 05:15 Lipase 84 U/L (73-393) 01/30/19 12:03 Home Medications: RX: Lorazepam [Ativan] 1 mg PO TID 12/12/18 RX: Metformin HCl 500 mg PO BID 6AM 6PM 12/12/18 RX: Metoprolol Succinate [Toprol Xl] 50 mg PO BID 6AM 6PM 12/12/18 RX: Tramadol HCl [Ultram] 50 mg PO BID PRN 12/12/18 RX: Eszopiclone [Lunesta] 3 mg PO BEDTIME #1 tablet 12/13/18 RX: Amlodipine [Norvasc*] 1 tab PO DAILY 01/30/19 RX: Atorvastatin Calcium [Lipitor] 1 tab PO BEDTIME 01/30/19 RX: Gabapentin [Neurontin*] 1 tab PO BID 01/30/19 RX: Pantoprazole [Protonix Tab*] 20 mg PO DAILY 01/30/19 Venlafaxine HCl *Xr* [Effexor XR] 1 tab PO BID 01/30/19
[2019-01-31 14:43] LABS: C.diff Antigen/Toxin Ag neg : Tox neg (NEG : NEG)
[2019-01-31] MEDS ORDERED: ATORVASTATIN 40 MG TAB PO SCH (21:00)
[2019-02-01] MEDS ORDERED: PANTOPRAZOLE 40MG TABLET PO SCH (06:30)
== END 2019-01-31 09:18 | disposition left against medical advice (07) | DRG 392 ==
LOC: ER 10:36 → ERHOLD 14:20 → 2ND 15:58
PROVIDERS: ADMIT Family Medicine; ATTEND Family Medicine
DX: K57.32 Diverticulitis of large intestine without perforation or abscess without bleeding (principal); E11.9 Type 2 diabetes mellitus without complications; F41.9 Anxiety disorder, unspecified; I25.10 Atherosclerotic heart disease of native coronary artery without angina pectoris; G30.9 Alzheimer's disease, unspecified; F02.80 Dementia in other diseases classified elsewhere, unspecified severity, without behavioral disturbance, psychotic disturbance, mood disturbance, and anxiety; Z53.29 Procedure and treatment not carried out because of patient's decision for other reasons
CPT/HCPCS: 36415; 74176; 76377; 80048; 80053; 80076; 81003; 82274; 82962; 83690; 85025; 87045; 87046; 87077; 87186; 87324; 87449; 94760; 96374; 99285; J1650; J7030

== ENCOUNTER 2019-05-31 16:57 | Observation (INO) | payer OTHER ==
--- OUTSIDE RECORDS SUMMARY | 2019-05-31 17:00 | XMS REPORT ---
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 Problem Vitamin D deficiency E55.9 Active Problem Depression with anxiety F41.8 Active Problem Abdominal pain, unspecified R10.9 Active abdominal location Problem Diverticulitis of large intestine K57.32 Active without perforation or abscess without bleeding Problem Hypertension, unspecified type I10 Active Problem Memory loss R41.3 Active Problem Low back pain M54.5 Active Problem Right leg pain M79.604 Active Problem Bilateral low back pain without M54.5 Active sciatica, unspecified chronicity Problem Cat scratch W55.03XA Active Problem Cerebellar cerebrovascular I63.9 Active accident (CVA) without late effect Problem Hyperlipidemia, unspecified E78.5 Active hyperlipidemia type Problem Forgetfulness R68.89 Active Problem Chronic kidney disease, N18.9 Active unspecified CKD stage Problem Other chronic pain G89.29 Active Problem Diverticulitis K57.92 Active Problem Pain in left shoulder M25.512 Active Problem Right hip pain M25.551 Active Problem 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
--- OUTSIDE RECORDS SUMMARY | 2019-05-31 17:00 | XMS REPORT ---
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 Assessment Chronic kidney disease, N18.9 Active unspecified CKD stage Assessment Cat scratch W55.03XA Active Assessment Hypertension, unspecified type I10 Active Problem Type II diabetes mellitus with E11.21 [...] Active Problem Right hip pain M25.551 Active Assessment Pain in left shoulder M25.512 Active Problem 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 Assessment Forgetfulness R68.89 Active Problem Allergic rhinitis J30.9 Active Assessment Bilateral low back pain without M54.5 Active sciatica, unspecified chronicity Problem IBS (irritable colon syndrome) K58.9 Active Assessment Other chronic pain G89.29 Active Problem Benign essential HTN I10 Active Problem Grief F43.21 Active Problem Grief reaction F43.21 Active Problem Hyperlipemia E78.5 Active Problem Gastro-esophageal reflux K21.9 Active Medications Medication Code Code Instructions Start End Status Dosage System Date Date Mupirocin [facility] 46175668944 2 % Externally Active 1 application Two times a day to affected area Ativan [facility] 18271691613 1 MG Orally Active 1 tablet Three times a day Lunesta [facility] 16942429810 3 MG Orally Active 1 tablet Once a day immediately before bedtime Donepezil HCl [facility] 76487366527 5 MG Orally Active 1 tablet at Once a day bedtime EpiPen 2-Ney [facility] [address]-88 0.3 MG/0.3ML Active not defined (1:1000) Intramuscular Gabapentin [facility] 17878589852 100 mg Orally Active 1 capsule Twice a day as needed for pain Bactrim DS [facility] 78735739159 800-160 MG Active 1 tablet Orally Twice a day Effexor XR [facility] 45027625334 75 MG Orally Active 3 capsules Once a day Metoprolol [facility] 83146488395 50 MG Orally Active 1 tablet Tartrate Twice a day Vitamin D [facility] 85217739478 2000 UNIT Active 1 tablet Orally Once a day Atorvastatin [facility] 98526225839 20 Orally Once Active 1 tablet in Calcium a day evening Metformin HCl [facility] 91009291321 500 Orally Active 1 tablet Twice a day Amlodipine [facility] 50508372958 10 MG Orally Active 1 tablet Besylate Once a day Cardura [facility] 12613894212 2 MG Orally Active 1 tablet in Once a day evening Simvastatin [facility] 18666110846 40 MG Orally Active 1 tablet in Once a day the evening Bentyl [facility] 71910049424 20 MG Orally Active 1 tablet Four times a day Mupirocin [facility] 92912168795 2 % Externally May 14May Active 1 application Three times a 2019 04, to affected day 2019 areas Protonix [facility] 32331319922 20 MG Orally Active 1 tablet Once a day Protonix [facility] 65704423955 40 MG Orally Active 1 tablet Once a day Lotrisone [facility] 14849559766 1-0.05 % Active 1 application Externally to affected Twice a day area Bactroban [facility] 46413374524 2 % Externally Active 1 application Three times a to affected day area Results No Known Results Summary Purpose eClinicalWorks Submission
[2019-05-31] MEDS ORDERED: NA CHLORIDE 0.9% 500 ML ONE ×2 (17:29→19:26)
--- NOTE | 2019-05-31 17:51 | RAD REPORT ---
EXAM DESCRIPTION: RAD - Hand Left 2 View - 05/31/2019 5:42 pm CLINICAL HISTORY: Left hand pain FINDINGS: No fracture or dislocation is seen. Bones are osteoporotic. 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 No bony destructive lesion noted
[2019-05-31 18:43] LABS: Protime INR 0.99
[2019-05-31 18:44] LABS: Absolute Lymphocytes (CBC) 1.8 K/uL (0.7-4.9); Basophils % 0.4 % (0-1.3); Hematocrit 36.7 % (36.0-45.0); MPV 9.7 fL (7.6-11.3); RBC Red Blood Cell Count 4.14 M/uL (3.86-4.86)
[2019-05-31 19:02] LABS: ALT/SGPT 16 U/L (12-78); AST/SGOT 14 U/L (15-37); Albumin 3.5 g/dL (3.4-5.0); Alkaline Phosphatase 72 U/L (45-117); BUN Blood Urea Nitrogen 12 mg/dL (7-18); Bicarbonate 26 mmol/L (21-32); Bilirubin Direct < 0.1 mg/dL (0-0.2); Bilirubin Total 0.3 mg/dL (0.2-1.0); Glucose Level 122 mg/dL (74-106); Protein, Total 7.1 g/dL (6.4-8.2); Sodium Level 142 mmol/L (136-145)
[2019-05-31 19:03] LABS: Potassium 2.9 mmol/L (3.5-5.1)
[2019-05-31] MEDS ORDERED: VANCOMYCIN 1 GM/VIAL ONE (19:25)
[2019-05-31] MEDS ORDERED: KETOROLAC 30 MG/ML INJ ONE (19:25)
[2019-05-31] MEDS ORDERED: AZITHROMYCIN 500 MG INJ IVPB ONE (19:25)
[2019-05-31] MEDS ORDERED: POTASSIUM 25 MEQ EFFERV TAB ONE (19:26)
--- NOTE | 2019-05-31 19:43 | ER ---
Nurse's Notes [facility] Name: Amber Acosta Age: 73 yrs Sex: Female : 1945 Arrival Date: 05/31/2019 Time: 17:01 Bed 18 Private MD: Diagnosis: Cellulitis of left upper limb;Scratched by cat-dorsum left hand Presentation: 05/31 17:00 Presenting complaint: Left hand pain 9/10 and swelling after being scratched on hand hb and forearm by cat yesterday. Transition of care: patient was not received from another setting of care. Onset of symptoms was May 31, 2019. Risk Assessment: Do you want to hurt yourself or someone else? Patient reports no desire to harm self or others. Care prior to arrival: None. 17:00 Method Of Arrival: Ambulatory hb 17:00 Acuity: IVETTE 3 hb 17:05 Initial Sepsis Screen: Does the patient meet any 2 criteria? No. Patient's initial rb1 sepsis screen is negative. Does the patient have a suspected source of infection? Yes: Skin breakdown/wound. Historical: - Allergies: 17:01 Bees; hb 17:01 Codeine; hb 17:01 hydrocodone bitartrate; hb 17:01 Levofloxacin; hb 17:01 METRONIDAZOLE; hb 17:01 PENICILLINS; hb 17:01 SHELLFISH; hb 17:01 sulfamethoxazole; hb 17:01 TRIMETHOPRIM; hb 17:01 Wasps; hb - Home Meds: 17:05 amlodipine 10 mg tab [Active]; atorvastatin 50mg Oral 1 tab AT NIGHT [Active]; rb1 donepezil 5 mg Oral TbDL 1 tab once daily [Active]; doxazosin 2 mg Oral tab 1 tab once daily [Active]; Ecotrin 325 mg Oral TbEC 1 tab once daily [Active]; Effexor 3 tabs Oral 75 mg daily [Active]; gabapentin 100 mg Oral cap 3 caps 3 times per day [Active]; lorazepam 1 mg Oral tab 1 tab once daily for Anxiety [Active]; Lunesta 3 mg Oral tab 1 tab once daily [Active]; metformin 500 mg Oral tab 1 tab 2 times per day [Active]; metoprolol tartrate 50 mg Oral tab 1 tab 2 times per day [Active]; pantoprazole 20 mg Oral TbEC 1 tab once daily [Active]; - PMHx: 17:05 Alzheimers; Anxiety; CAD; CVA; Depression; Diabetes - NIDDM; GERD; High Cholesterol; rb1 kidney cancer; Hypertension; Migraines; - PSHx: 17:05 Knee surgery; Hysterectomy; brain surgery; Appendectomy; rb1 - Immunization history:: Adult Immunizations up to date. - Coronavirus screen:: The patient has NOT traveled to [place], [place], or [place] in the past 14 days. The patient has NOT had contact with known/suspected case of Coronavirus? Proceed with normal triage procedures. - Social history:: Smoking status: Patient denies any tobacco usage or history of. - Ebola Screening: : No symptoms or risks identified at this time. Screenin:05 Abuse screen: Denies threats or abuse. Nutritional screening: No deficits noted. rb1 Tuberculosis screening: No symptoms or risk factors identified. Fall Risk None identified. Assessment: 17:05 General: Appears in no apparent distress. comfortable, Behavior is calm, cooperative, rb1 Denies fever. General: Pt. reports that she tried to get a cat out of the tree and it scratched her.. Pain: Complains of pain in left hand Pain currently is 8 out of 10 on a pain scale. Neuro: Level of Consciousness is awake, alert, obeys commands, Oriented to person, place, time, situation. Cardiovascular: Capillary refill < 3 seconds is brisk in bilateral fingers. Respiratory: Airway is patent Respiratory effort is even, unlabored, Respiratory pattern is regular, symmetrical. GI: No signs and/or symptoms were reported involving the gastrointestinal system. : No signs and/or symptoms were reported regarding the genitourinary system. Derm: Skin is red, left hand. Musculoskeletal: Swelling present in left hand. 18:00 Reassessment: Patient appears in no apparent distress at this time. No changes from rb1 previously documented assessment. 18:50 Reassessment: Patient appears in no apparent distress at this time. Patient and/or rb1 family updated on plan of care and expected duration. Pain level reassessed. Patient is alert, oriented x 3, equal unlabored respirations, skin warm/dry/pink. Family at the bedside. 19:15 General: Appears in no apparent distress. comfortable, Behavior is calm, cooperative, jd3 appropriate for age. Pain: Complains of pain in left forearm and left hand Quality of pain is described as aching, tender. Neuro: Level of Consciousness is awake, alert, obeys commands, Oriented to person, place, time, situation. Cardiovascular: Denies chest pain, Capillary refill < 3 seconds Patient's skin is warm and dry. Respiratory: Airway is patent Respiratory effort is even, unlabored, Respiratory pattern is regular, symmetrical, Denies cough, shortness of breath. GI: No signs and/or symptoms were reported involving the gastrointestinal system. : No signs and/or symptoms were reported regarding the genitourinary system. Derm: Skin is intact, Skin is dry, Skin is normal, Skin temperature is warm redness noted to left forearm and left hand. small abrasions noted to left hand and forearm. Musculoskeletal: Circulation, motion, and sensation intact. Swelling present in left forearm and left hand. 20:30 Reassessment: Patient appears in no apparent distress at this time. Patient and/or jd3 family updated on plan of care and expected duration. Pain level reassessed. Patient is alert, oriented x 3, equal unlabored respirations, skin warm/dry/pink. awaiting room assignment Patient states feeling better. 21:25 Reassessment: Patient appears in no apparent distress at this time. Patient and/or jd3 family updated on plan of care and expected duration. Pain level reassessed. Patient is alert, oriented x 3, equal unlabored respirations, skin warm/dry/pink. pt reported understanding of need for admission. Vital Signs: 17:01 BP 133 / 73; Pulse 102; Resp 16; Temp 99; Pulse Ox 99% on R/A; Weight 58.97 kg; Height hb 5 ft. 2 in. (157.48 cm); Pain 9/10; 18:00 Pulse 76; Resp 15; Pulse Ox 95% on R/A; rb1 18:50 BP 126 / 64; Pulse 73; Resp 16; Pulse Ox 97% on R/A; rb1 19:46 BP 131 / 69; Pulse 83; Resp 17 S; Pulse Ox 95% on R/A; Pain 9/10; jd3 20:51 BP 107 / 83; Pulse 81; Resp 18 S; Pulse Ox 98% on R/A; jd3 17:01 Body Mass Index 23.78 (58.97 kg, 157.48 cm) hb ED Course: 17:01 Patient arrived in ED. as 17:01 Triage completed. hb 17:01 Arm band placed on. hb 17:05 Patient has correct armband on for positive identification. Bed in low position. Call rb1 light in reach. Side rails up X 1. Pulse ox on. NIBP on. 17:08 Marcos Cintron PA is PHCP. cp 17:09 Jaxson Rios MD is Attending Physician. cp 17:12 Liliane Appiah, MARCI is Primary Nurse. rb1 17:42 XRAY Hand LEFT 2 View In Process Unspecified. EDMS 18:09 Inserted saline lock: 20 gauge in right antecubital area, using aseptic technique. rb1 ,using aseptic technique. IV inserted by MARCI Herndon Blood collected. 19:03 Notified Nurse Practitioner and/or Physician Instructor [employer] of a critical lab result(s), bb potassium of 2.9 Marcos FUNK notified. 19:42 Pillo Amaya is Hospitalizing Provider. cp 21:22 No provider procedures requiring assistance completed. Patient admitted, IV remains in jd3 place. Administered Medications: 18:09 Drug: NS 0.9% 500 ml Volume: 500 ml; Route: IV; Rate: 500 ml/hr; Site: right rb1 antecubital; 19:30 Follow up: Response: No adverse reaction; IV Status: Completed infusion; IV Intake: jd3 500ml 19:39 Drug: Zithromax 500 mg Route: IVPB; Infused Over: 1 hrs; Site: right antecubital; jd3 20:49 Follow up: Response: No adverse reaction; IV Status: Completed infusion; IV Intake: jd3 250ml 19:39 Drug: Potassium Effervescent Tablet 50 mEq Route: PO; jd3 20:35 Follow up: Response: No adverse reaction jd3 19:39 Drug: TORadol - Ketorolac 15 mg Route: IVP; Site: right antecubital; jd3 20:35 Follow up: Response: No adverse reaction jd3 20:49 Drug: vancoMYCIN 1 grams Route: IVPB; Infused Over: 2 hrs; Site: right antecubital; jd3 21:24 Follow up: Response: No adverse reaction; IV Status: Infusion continued upon admission jd3 Intake: 19:30 IV: 500ml; Total: 500ml. jd3 20:49 IV: 250ml; Total: 750ml. jd3 Outcome: 19:43 Decision to Hospitalize by Provider. cp 21:23 Admitted to Med/surg accompanied by tech, via wheelchair, room 230, with chart, Report jd3 called to Kiley COVARRUBIAS 21:23 Condition: stable 21:23 Instructed on the need for admit, Demonstrated understanding of instructions. 22:03 Patient left the ED. jd3 Signatures: Dispatcher [employer] Amara Sesay Brenda RN RN bb Marcos Cintron PA PA cp Barber, Rebecca RN MARCI [facility] Chio Chavez RN RN hb Davies, Jonathon, RN RN jganesh Corrections: (The following items were deleted from the chart) 20:51 19:30 Reassessment: Patient appears in no apparent distress at this time. Patient jd3 and/or family updated on plan of care and expected duration. Pain level reassessed. Patient is alert, oriented x 3, equal unlabored respirations, skin warm/dry/pink. awaiting room assignment Patient states feeling better. jd3
--- NOTE | 2019-05-31 19:44 | EDPHYS ---
Physician Documentation [facility] Name: Amber Acosta Age: 73 yrs Sex: Female : 1945 Arrival Date: 05/31/2019 Time: 17:01 Bed 18 Private MD: ED Physician Jaxson Rios HPI: 05/31 17:20 This 73 yrs old Female presents to ER via Ambulatory with complaints of Hand cp Swelling. 17:20 The patient or guardian reports pain, swelling, tenderness, cat scratch injury to cp dorsum of left hand. Onset: The symptoms/episode began/occurred yesterday. Associated signs and symptoms: Pertinent negatives: fever. Patient reports she was attempting to help a cat she thought was her own out of a tree when it scratched the back of her left hand. Patient reports she saw DR Donnelly yesterday who started her on oral antibiotic. Historical: - Allergies: 17:01 Bees; hb 17:01 Codeine; hb 17:01 hydrocodone bitartrate; hb 17:01 Levofloxacin; hb 17:01 METRONIDAZOLE; hb 17:01 PENICILLINS; hb 17:01 SHELLFISH; hb 17:01 sulfamethoxazole; hb 17:01 TRIMETHOPRIM; hb 17:01 Wasps; hb - Home Meds: 17:05 amlodipine 10 mg tab [Active]; atorvastatin 50mg Oral 1 tab AT NIGHT [Active]; rb1 donepezil 5 mg Oral TbDL 1 tab once daily [Active]; doxazosin 2 mg Oral tab 1 tab once daily [Active]; Ecotrin 325 mg Oral TbEC 1 tab once daily [Active]; Effexor 3 tabs Oral 75 mg daily [Active]; gabapentin 100 mg Oral cap 3 caps 3 times per day [Active]; lorazepam 1 mg Oral tab 1 tab once daily for Anxiety [Active]; Lunesta 3 mg Oral tab 1 tab once daily [Active]; metformin 500 mg Oral tab 1 tab 2 times per day [Active]; metoprolol tartrate 50 mg Oral tab 1 tab 2 times per day [Active]; pantoprazole 20 mg Oral TbEC 1 tab once daily [Active]; - PMHx: 17:05 Alzheimers; Anxiety; CAD; CVA; Depression; Diabetes - NIDDM; GERD; High Cholesterol; rb1 kidney cancer; Hypertension; Migraines; - PSHx: 17:05 Knee surgery; Hysterectomy; brain surgery; Appendectomy; rb1 - Immunization history:: Adult Immunizations up to date. - Coronavirus screen:: The patient has NOT traveled to [place], [place], or [place] in the past 14 days. The patient has NOT had contact with known/suspected case of Coronavirus? Proceed with normal triage procedures. - Social history:: Smoking status: Patient denies any tobacco usage or history of. - Ebola Screening: : No symptoms or risks identified at this time. ROS: 17:30 Constitutional: Negative for body aches, chills, fever, poor PO intake. cp 17:30 Eyes: Negative for injury, pain, redness, and discharge. cp 17:30 ENT: Negative for drainage from ear(s), ear pain, sore throat, difficulty swallowing, difficulty handling secretions. 17:30 Cardiovascular: Negative for chest pain, palpitations. 17:30 Respiratory: Negative for cough, shortness of breath, wheezing. 17:30 Abdomen/GI: Negative for abdominal pain, nausea, vomiting, and diarrhea. 17:30 MS/extremity: Positive for erythema, pain, swelling, tenderness, warmth, of the dorsum left hand and proximal left wrist. 17:30 Neuro: Negative for altered mental status, headache. 17:30 All other systems are negative. Exam: 17:35 Constitutional: The patient appears in no acute distress, alert, awake, non-toxic, well cp developed, well nourished, uncomfortable. 17:35 Head/Face: Normocephalic, atraumatic. cp 17:35 Eyes: Periorbital structures: appear normal, Conjunctiva: normal, no exudate, no injection, Sclera: no appreciated abnormality, Lids and lashes: appear normal, bilaterally. 17:35 ENT: External ear(s): are unremarkable, Nose: is normal, Mouth: Lips: moist, Oral mucosa: pink and intact, moist, Posterior pharynx: is normal, airway is patent, no erythema, no exudate. 17:35 Chest/axilla: Inspection: normal. 17:35 Cardiovascular: Rate: tachycardic, Rhythm: regular. 17:35 Respiratory: the patient does not display signs of respiratory distress, Respirations: normal, no use of accessory muscles, no retractions, labored breathing, is not present, Breath sounds: are clear throughout, no decreased breath sounds, no stridor, no wheezing. 17:35 Abdomen/GI: Exam negative for discomfort, distension, guarding, Inspection: abdomen appears normal. 17:35 Musculoskeletal/extremity: Extremities: grossly normal except: noted in the dorsum left hand and proximal left wrist: erythema, swelling, tenderness, ROM: limited passive range of motion due to pain, in the left hand and left wrist, Perfusion: the extremity is normally perfused throughout, Sensation intact. Vital Signs: 17:01 BP 133 / 73; Pulse 102; Resp 16; Temp 99; Pulse Ox 99% on R/A; Weight 58.97 kg; Height hb 5 ft. 2 in. (157.48 cm); Pain 9/10; 18:00 Pulse 76; Resp 15; Pulse Ox 95% on R/A; rb1 18:50 BP 126 / 64; Pulse 73; Resp 16; Pulse Ox 97% on R/A; rb1 19:46 BP 131 / 69; Pulse 83; Resp 17 S; Pulse Ox 95% on R/A; Pain 9/10; jd3 20:51 BP 107 / 83; Pulse 81; Resp 18 S; Pulse Ox 98% on R/A; jd3 17:01 Body Mass Index 23.78 (58.97 kg, 157.48 cm) hb MDM: 17:14 Patient medically screened. cp 19:22 Data reviewed: vital signs, nurses notes, lab test result(s), radiologic studies, plain cp films, I have discussed the patient's presentation/case with the attending Emergency Department Physician;. Test interpretation: by ED physician or midlevel provider: plain radiologic studies, xrays of left hand negative for fracture or foreign body. Physician consultation: Pillo Amaya was called at 19:23, was contacted at 19:23, regarding admission, to the medical/surgical unit. patient's condition, and will see patient in ED, shortly. 05/31 17:22 Order name: Procalcitonin; Complete Time: 19:12 cp 05/31 19:24 Interpretation: Procalcitonin < 0.05; Reviewed. 05/31 17:22 Order name: Lactate; Complete Time: 19:23 cp 05/31 19:24 Interpretation: Within normal limits: LAC 1.9. cp 05/31 17:22 Order name: Basic Metabolic Panel; Complete Time: 19:12 cp 05/31 19:13 Interpretation: Normal except: K 2.9; CL 110; GLUC 122; GFR 62. cp / 17:22 Order name: CBC with Diff; Complete Time: 18:53 cp 05/31 18:54 Interpretation: Reviewed. cp / 17:22 Order name: LFT's; Complete Time: 19:12 cp 02/ 19:14 Interpretation: Normal except: AST 14; GLOB 3.6; A/G 1.0. cp / 17:22 Order name: PT-INR; Complete Time: 18:53 cp / 18:54 Interpretation: Reviewed. cp 05/31 17:22 Order name: XRAY Hand LEFT 2 View; Complete Time: 17:59 cp 05/31 17:59 Interpretation: Report reviewed. cp 05/31 17:22 Order name: Cardiac monitoring; Complete Time: 17:58 cp 05/31 17:22 Order name: Blood Culture Adult (2) cp 05/31 17:22 Order name: IV Saline Lock; Complete Time: 18:42 cp 05/31 17:22 Order name: Labs collected and sent; Complete Time: 18:42 cp 05/31 17:22 Order name: O2 Per Protocol; Complete Time: 17:58 cp 05/31 17:22 Order name: O2 Sat Monitoring; Complete Time: 17:58 cp Administered Medications: 18:09 Drug: NS 0.9% 500 ml Volume: 500 ml; Route: IV; Rate: 500 ml/hr; Site: right rb1 antecubital; 19:30 Follow up: Response: No adverse reaction; IV Status: Completed infusion; IV Intake: jd3 500ml 19:39 Drug: Zithromax 500 mg Route: IVPB; Infused Over: 1 hrs; Site: right antecubital; jd3 20:49 Follow up: Response: No adverse reaction; IV Status: Completed infusion; IV Intake: jd3 250ml 19:39 Drug: Potassium Effervescent Tablet 50 mEq Route: PO; jd3 20:35 Follow up: Response: No adverse reaction jd3 19:39 Drug: TORadol - Ketorolac 15 mg Route: IVP; Site: right antecubital; jd3 20:35 Follow up: Response: No adverse reaction jd3 20:49 Drug: vancoMYCIN 1 grams Route: IVPB; Infused Over: 2 hrs; Site: right antecubital; jd3 21:24 Follow up: Response: No adverse reaction; IV Status: Infusion continued upon admission jd3 Disposition: 06/01 07:10 Co-signature as Attending Physician, Jaxson Rios MD. rn Disposition: 05/31/19 19:43 Hospitalization ordered by Pillo Amaya for Inpatient Admission. Preliminary diagnosis are Cellulitis of left upper limb, Scratched by cat - dorsum left hand. - Bed requested for Telemetry/MedSurg (Inpatient). - Status is Inpatient Admission. jd3 - Condition is Stable. - Problem is new. - Symptoms are unchanged. Signatures: Dispatcher [employer] EDMS Jaxson Rios MD MD rn Page, Corey, PA PA cp Deandra Dueñas RN RN cg Liliane Appiah RN RN [facility] Chio Chavez RN RN Joao Orosco RN RN jd3 Corrections: (The following items were deleted from the chart) 05/31 20:43 19:43 Hospitalization Ordered by Pillo Amaya for Inpatient Admission. Preliminary cg diagnosis is Cellulitis of left upper limb; Scratched by cat - dorsum left hand. Bed requested for Telemetry/MedSurg (Inpatient). Status is Inpatient Admission. Condition is Stable. Problem is new. Symptoms are unchanged. cp 22:03 20:43 05/31/2019 19:43 Hospitalization Ordered by Pillo Amaya for Inpatient jd3 Admission. Preliminary diagnosis is Cellulitis of left upper limb; Scratched by cat - dorsum left hand. Bed requested for Telemetry/MedSurg (Inpatient). Status is Inpatient Admission. Condition is Stable. Problem is new. Symptoms are unchanged. cg
--- NOTE | 2019-05-31 20:17 | P.HP ---
Certification for Inpatient Patient admitted to: Observation With expected LOS: <2 Midnights Practitioner: I am a practitioner with admitting privileges, knowledge of patient current condition, hospital course, and medical plan of care. Services: Services provided to patient in accordance with Admission requirements found in Title 42 Section 412.3 of the Code of Federal Regulations Patient History Date of Service: 05/31/19 Reason for admission: CAT scratch, swollen left hand. History of Present Illness: 73-year-old woman with a history of diabetes mellitus type 2, multiple antibiotic allergies presented to the ED with a complaint of left hand swelling from a cat scratch. Patient saw her PCP yesterday and started on oral antibiotics. The swelling got worse, she developed erythema on the back of the wrist despite starting the oral antibiotics. X-ray of the hand shows no joint involvement. Patient has no leukocytosis. No fever. Patient is hospitalized for further management with IV antibiotics. Allergies sulfamethoxazole [From Bactrim] Allergy (Severe, Verified 09/04/12 06:00) Anaphylaxis trimethoprim [From Bactrim] Allergy (Severe, Verified 09/04/12 06:00) Anaphylaxis venom-honey bee [bee venom (honey bee)] Allergy (Severe, Verified 08/21/11 21:55 ) Anaphylaxis ciprofloxacin [From Cipro] Allergy (Unknown, Verified 12/13/18 14:30) Unknown codeine [Codeine] Allergy (Verified 08/21/11 15:51) Hives metronidazole [From Flagyl] Allergy (Verified 12/13/18 13:54) Itching Penicillins Allergy (Verified 07/23/18 18:23) Unknown Shellfish Adverse Reaction (Intermediate, Verified 08/21/11 21:55) Nausea/Vomiting levofloxacin [From Levaquin] Adverse Reaction (Verified 08/21/11 21:53) Itching/Hives/Rash Bees Allergy (Uncoded 07/27/15 16:19) Unknown codeine Allergy (Uncoded 06/05/14 02:04) Hives/Rash PCN Allergy (Uncoded 10/17/14 18:15) Unknown Wasps Allergy (Uncoded 07/27/15 16:19) Unknown Home Medications: Lorazepam [Ativan] 1 mg PO BID 12/12/18 Metformin HCl 500 mg PO BID 6AM 6PM 12/12/18 Metoprolol Succinate [Toprol Xl] 50 mg PO BID 6AM 6PM 12/12/18 Tramadol HCl [Ultram] 50 mg PO PRN PRN 12/12/18 Eszopiclone [Lunesta] 3 mg PO BEDTIME #1 tablet 12/13/18 Amlodipine [Norvasc*] 1 tab PO DAILY 01/30/19 Atorvastatin Calcium [Lipitor] 1 tab PO BEDTIME 01/30/19 Venlafaxine HCl *Xr* [Effexor XR] 1 tab PO DAILY 01/30/19 Melatonin [Melatonin*] 3 mg PO BEDTIME 05/31/19 - Past Medical/Surgical History Diabetic: Yes -: Migraine headache -: HTN -: History of CVA -: Anxiety -: Hyperlipidemia -: Diverticulosis -: Diabetes mellitus type 2 [id number] -: HYSTERECTOMY -: RENAL SX Psychosocial/ Personal History: Patient lives with sister. - Family History Father -: Heart disease, Hypertension Notes: CAD Brother -: Heart disease, Hypertension Notes: TRIPLE [employer]PASS Mother -: Lung disease, Cancer - Social History Alcohol use: No CD- Drugs: No Caffeine use: No Review of Systems Other: Except as documented, all other systems reviewed and negative. Physical Examination - Physical Exam General: Alert, In no apparent distress, Oriented x3 HEENT: Mucous membr. moist/pink, Sclerae nonicteric Neck: Supple, JVD not distended Respiratory: Clear to auscultation bilaterally, Normal air movement Cardiovascular: No edema, Regular rate/rhythm, Normal S1 S2 Capillary refill: <2 Seconds Gastrointestinal: Normal bowel sounds, Soft and benign, Non-distended, No tenderness Musculoskeletal: Swelling (Dorsum of left wrist and hand.) Integumentary: Other (Multiple scratches on the dorsum of the left hand.) Neurological: Normal speech, Normal strength at 5/5 x4 extr - Studies Laboratory Data (last 24 hrs) 05/31/19 18:09: PT 11.7, INR 0.99 05/31/19 18:09: WBC 8.8, Hgb 12.5, Hct 36.7, Plt Count 212 05/31/19 18:09: Sodium 142, Potassium 2.9 L*, BUN 12, Creatinine 0.89, Glucose 122 H, Total Bilirubin 0.3, AST 14 L, ALT 16, Alkaline Phosphatase 72 Assessment and Plan - Problems (Diagnosis) (1) Cellulitis of hand Current Visit: Yes Status: Acute (2) Cat scratch Current Visit: Yes Status: Acute (3) Hypokalemia Current Visit: Yes Status: Acute (4) Diabetes mellitus type 2 in nonobese Current Visit: No Status: Chronic - Plan Place under observation. Start IV Clindamycin, and Gentamicin. Pain medications as needed. Manage blood sugar with insulin sliding scale. Hold metformin. Correct hypokalemia. - Advance Directives Does patient have a Living Will: Yes Does patient have a Durable POA for Healthcare: Yes
[2019-05-31 21:47] VITALS: BMI 23.8
[2019-05-31] MEDS: INSULIN -REGULAR HUMAN 50 UNIT/0.5 ML ML SQ SCH (22:45)
[2019-05-31] MEDS ORDERED: ACETAMINOPHEN 500 MG TAB PO PRN (22:45)
[2019-05-31] MEDS ORDERED: ONDANSETRON 4 MG/2 ML VIAL IV PRN (22:45)
[2019-05-31] MEDS: NA CHLORIDE 0.9% 1,000 ML IV SCH (23:28)
[2019-05-31] MEDS: LORAZEPAM 1 MG TABLET PO SCH (23:29)
[2019-05-31] MEDS: MELATONIN 3 MG TABLET PO SCH (23:30)
[2019-05-31] MEDS ORDERED: NA CHLORIDE 0.9% 100 ML ONE (23:34)
[2019-05-31] MEDS ORDERED: CLINDAMYCIN IV 150 MG/ML (6 mL) VIAL ONE (23:38)
[2019-06-01] MEDS: KCL 20 MEQ/100 mL IVPB 20 MEQ/100 ML BAG IV SCH ×2 (00:38→00:45)
[2019-06-01] MEDS: GENTAMICIN 80 MG/100 ML BAG 80 MG/100 ML BAG IV SCH ×3 (01:07→23:08)
[2019-06-01] MEDS: CLINDAMYCIN INJ 600 MG in NA CHLORIDE 0.9% 50 ML IV SCH ×5 (05:57→18:09)
[2019-06-01 06:37] LABS: Absolute Lymphocytes (CBC) 1.9 K/uL (0.7-4.9); Basophils % 0.6 % (0-1.3); Hematocrit 33.7 % (36.0-45.0); Lymphocytes % 24.3 % (15.3-44.8); MPV 9.4 fL (7.6-11.3); RBC Red Blood Cell Count 3.76 M/uL (3.86-4.86)
[2019-06-01 06:51] LABS: Magnesium 1.7 mg/dL (1.8-2.4); Phosphorus 2.5 mg/dL (2.5-4.9); Potassium 3.4 mmol/L (3.5-5.1)
[2019-06-01] MEDS: INSULIN -REGULAR HUMAN 50 UNIT/0.5 ML ML SQ SCH ×4 (07:30→21:00)
[2019-06-01] MEDS: ENOXAPARIN 40 MG/0.4 ML SQ SCH (08:20)
[2019-06-01] MEDS: LORAZEPAM 1 MG TABLET PO SCH ×2 (08:20→21:02)
[2019-06-01] MEDS ORDERED: HYDROCODONE/APAP 7.5/325 MG TAB PO PRN (09:03)
--- NOTE | 2019-06-01 15:53 | PN ---
Date of Progress Note: 06/01/2019 Subjective: Patient is seen and examined. Chart reviewed and case discussed with RN. Patient reports some pain and swelling in her left hand. Medications: List reviewed. Code Status: Full. Physical Examination: Vital Signs: Temperature 97.8, heart rate 76, blood pressure 121/67, respirations 18, O2 of 95% on room air. General: Awake, alert, oriented x3. Elderly female, in some mild distress. CV: S1, S2. Regular rate and rhythm. Peripheral pulses present. Respiratory: Moving air well bilaterally. No wheezing or stridor. No use of accessory muscles. Gastrointestinal: Abdomen is soft, nontender, nondistended. Positive bowel sounds. Extremities: No clubbing, cyanosis. Patient has edema of the left upper extremity. Neuro: Cranial nerves 2 through 12 intact grossly. No focal neurological deficit. Sensation is intact to light touch. Musculoskeletal: Decreased range of motion, right wrist. Pattern Hanger strength is decreased. Skin: Erythema of the left upper extremity, mostly at the dorsum of the hand. No fluctuance noted. Warm to touch. Tenderness to palpation. Laboratory Data: Sodium 145, potassium 3.4, chloride 113, CO2 of 27, BUN 10, creatinine 0.65, glucose 84, calcium 8.4, phosphorus 2.5, magnesium 1.7. WBC 7.9, H and H 11.2 and 33.7, platelets 178. X-ray of the left hand shows no fracture or dislocations. Bone is osteoporotic. 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 No bony destructive lesion noted. Assessment And Plan: A 73-year-old female with: 1. Cellulitis of the left hand. We will continue with IV antibiotics. No hand surgeon is available for evaluation of need for surgical debridement; however, there is no fluctuance. We will continue to monitor if no improvement. We will call Dr. Jackson in a.m. 2. Cat-scratch disease. IV abx. 3. Hypokalemia. We will replace and monitor. 4. Hypomagnesemia. We will replace and monitor. 5. Diabetes mellitus type 2, [id number]-xuxizkclk with hyperglycemia. We will continue to monitor blood glucose levels and continue with sliding scale insulin. 6. History of migraine headaches. stable 7. History of cerebrovascular accident. stable. 8. Mild cognitive impairment. 9. Generalized anxiety disorder, on Ativan. 10. Insomnia, on Lunesta. 11. History of diverticulosis. 12. Mixed hyperlipidemia. Continue statin. 13. Gastroesophageal reflux disease without esophagitis. Continue PPI. 14. Deep vein thrombosis prophylaxis with Lovenox. ADDENDUM: Patient had acute delirium episode in the evening. Was confused, pulled out her IV lines twice. Asking for her . Not able to be redirected despite family present. Continue monitoring in the hospital setting. /ERI Voice ID: [id number] Report ID: [id number] MTDRox
[2019-06-01] MEDS: METOPROLOL XL 100 MG TAB PO SCH (18:09)
[2019-06-01] MEDS ORDERED: ATORVASTATIN 40 MG TAB PO SCH (21:00)
[2019-06-01] MEDS ORDERED: HOME MED 1 EA UNK (Eszopiclone [Lunesta] 3 MG) PO SCH (21:00)
[2019-06-01] MEDS: MELATONIN 3 MG TABLET PO SCH (21:02)
[2019-06-01 22:55] VITALS: O2SAT 94
[2019-06-01] MEDS: NA CHLORIDE 0.9% 1,000 ML IV SCH (23:08)
[2019-06-02] MEDS: CLINDAMYCIN INJ 600 MG in NA CHLORIDE 0.9% 50 ML IV SCH ×4 (05:58→11:54)
[2019-06-02] MEDS: METOPROLOL XL 100 MG TAB PO SCH ×2 (06:02→16:53)
[2019-06-02 06:13] LABS: Absolute Lymphocytes (CBC) 1.7 K/uL (0.7-4.9); Basophils % 0.7 % (0-1.3); Lymphocytes % 21.9 % (15.3-44.8); MPV 9.7 fL (7.6-11.3); RBC Red Blood Cell Count 3.85 M/uL (3.86-4.86)
[2019-06-02 06:35] LABS: ALT/SGPT 54 U/L (12-78); AST/SGOT 123 U/L (15-37); Alkaline Phosphatase 95 U/L (45-117); BUN Blood Urea Nitrogen 8 mg/dL (7-18); Bicarbonate 27 mmol/L (21-32); Bilirubin Total 0.3 mg/dL (0.2-1.0); Glucose Level 89 mg/dL (74-106); Potassium 3.5 mmol/L (3.5-5.1); Protein, Total 6.4 g/dL (6.4-8.2); Sodium Level 144 mmol/L (136-145)
[2019-06-02] MEDS: INSULIN -REGULAR HUMAN 50 UNIT/0.5 ML ML SQ SCH ×3 (07:30→13:04)
[2019-06-02] MEDS: ENOXAPARIN 40 MG/0.4 ML SQ SCH (08:37)
[2019-06-02] MEDS: LORAZEPAM 1 MG TABLET PO SCH (08:37)
[2019-06-02] MEDS ORDERED: VENLAFAXINE HCL XR 75 MG CAP PO SCH (09:00)
[2019-06-02] MEDS ORDERED: POTASSIUM CL SA 10 MEQ TAB PO ONE (09:00)
[2019-06-02] MEDS ORDERED: AMLODIPINE 10 MG TAB PO SCH (09:00)
[2019-06-02] MEDS ORDERED: MAGNESIUM SULFATE 1 gm IVPB 1 GM/100 ML BAG IV ONE (09:00)
[2019-06-02] MEDS: GENTAMICIN 80 MG/100 ML BAG 80 MG/100 ML BAG IV SCH (11:53)
[2019-06-02] MEDS ORDERED: AZITHROMYCIN IV 500 MG in NA CHLORIDE 0.9% 250 ML IVPB SCH (13:00)
[2019-06-02] MEDS: NA CHLORIDE 0.9% 1,000 ML IV SCH (14:45)
[2019-06-02 16:39] VITALS: BP 123/73; TEMP 98.3
--- NOTE | 2019-06-02 17:13 | PN ---
Date of Progress Note: 06/02/2019 Subjective: Patient seen and examined. Chart reviewed and case discussed with RN and Dr. Jackson. Patient has improvement in her left hand. Erythema is going down. Medications: List reviewed. Physical Examination: Vital Signs: Temperature 98, heart rate 85, blood pressure 159/87, respirations 16, O2 94% on room a ir. General: Awake, alert, oriented x3, in some mild distress, elderly female. CV: S1, S2. Regular rate and rhythm. Peripheral pulses present. Respiratory: Moving air well bilaterally. No wheezing or stridor. Gastrointestinal: Abdomen is soft, nontender, nondistended. Positive bowel sounds. Extremities: No clubbing, cyanosis. Patient has edema of the left upper extremity. Neurologic: Nonfocal. Skin: Erythema of the left hand dorsal aspect, extending into the palmar aspect. Decreased range of motion. Tenderness to palpation and pain with palmar flexion. Laboratory Data: Sodium 144, potassium 3.5, chloride 112, CO2 of 27, BUN 8, creatinine 0.62, glucose 89, calcium 8.6, magnesium 1.8. AST 123, ALT 54. WBC 7.7, H and H 11.6 and 34, platelets 188. Blo od cultures negative to date. Assessment: 73-year-old female with; 1.Cellulitis of the left hand. Continue antibiotics. We will switch over to azithromycin. I spoke with Dr. Jackson. He wants to monitor the patient and possible debridement. 2.Cat-scratch disease. Continue IV antibiotics. 3.Hypokalemia. Replace and monitor. 4.Hypomagnesemia. We will replace and monitor. 5.Diabetes mellitus type 2, urv-ykfdgcy-rmdoufwpq with hyperglycemia. Continue sliding scale insuli n. Monitor blood glucose levels. 6.Acute delirium. Patient was having confusion and was emotionally labile last night and was asking for her . 7.History of migraine headaches, stable. 8.History of cerebrovascular accident. 9.Mild cognitive impairment. 10.Generalized anxiety disorder, on Ativan. 11.Insomnia. Continue Lunesta. 12.History of diverticulosis. 13.Mixed hyperlipidemia. Continue statin. 14.Gastroesophageal reflux disease without esophagitis. We will continue PPI. 15.Deep venous thrombosis prophylaxis. Lovenox. Plan: Discharge once cleared by Surgery. SA/MODL Voice ID: [id number] Report ID: [id number]
--- NOTE | 2019-06-02 19:03 | P.DS ---
Admission Date: 05/31/19 Discharge Date: 06/02/19 Disposition: ROUTINE DISCHARGE Discharge Condition: FAIR Reason for Admission: CAT scratch, swollen left hand. Brief History of Present Illness: From H and P 73-year-old woman with a history of diabetes mellitus type 2, multiple antibiotic allergies presented to the ED with a complaint of left hand swelling from a cat scratch. Patient saw her PCP yesterday and started on oral antibiotics. The swelling got worse, she developed erythema on the back of the wrist despite starting the oral antibiotics. X-ray of the hand shows no joint involvement. Patient has no leukocytosis. No fever. Patient is hospitalized for further management with IV antibiotics. Hospital Course: Patient is a 73-year-old female who was admitted to the hospital for cat scratch and cellulitis of the left hand resultant from that incident. Patient started on IV antibiotics. Dr. Vo was consulted. He did not recommend any immediate surgical intervention. Patient's symptoms improved with IV antibiotic treatment. Her cultures were negative. She did not have any signs of symptoms of sepsis. X-ray did not show any free air. Patient was then significantly improved. She did have some delirium over the course of the hospital stay due to her mild cognitive impairment. Patient was sent home in a stable condition after being cleared by surgical standpoint. Assessment: 73-year-old female with; 1. Cellulitis of the left hand. Continue antibiotics. We will switch over to azithromycin. 2. Cat-scratch disease. Continue IV antibiotics. 3. Hypokalemia. Replace and monitor. 4. Hypomagnesemia. We will replace and monitor. 5. Diabetes mellitus type 2, cyi-fmsbyfg-fiectbkhz with hyperglycemia. Continue sliding scale insulin. Monitor blood glucose levels. 6. Acute delirium. Patient was having confusion and was emotionally labile last night and was asking for her . 7. History of migraine headaches, stable. 8. History of cerebrovascular accident. 9. Mild cognitive impairment. 10. Generalized anxiety disorder, on Ativan. 11. Insomnia. Continue Lunesta. 12. History of diverticulosis. 13. Mixed hyperlipidemia. Continue statin. 14. Gastroesophageal reflux disease without esophagitis. We will continue PPI. Vital Signs/Physical Exam: Temp Pulse Resp BP Pulse Ox 98.3 F 85 16 123/73 97 06/02/19 16:00 06/02/19 16:53 06/02/19 16:00 06/02/19 16:53 06/02/19 16:00 General: Alert, In no apparent distress, Oriented x3 HEENT: Atraumatic, PERRLA, EOMI Neck: Supple Respiratory: Clear to auscultation bilaterally, Normal air movement Cardiovascular: Regular rate/rhythm, Normal S1 S2, Edema (Left-handed) Gastrointestinal: Normal bowel sounds, Soft and benign, Non-distended, No tenderness Musculoskeletal: No tenderness Integumentary: Tenderness/swelling (Left and), Erythema Neurological: Normal speech, Normal strength at 5/5 x4 extr, Normal tone, Cranial nerves 3-12 intact, Normal affect Lymphatics: No axilla or inguinal lymphadenopathy Laboratory Data at Discharge: WBC 7.7 K/uL (4.3-10.9) 06/02/19 05:45 Hgb 11.6 g/dL (12.0-15.0) L 06/02/19 05:45 Hct 34.0 % (36.0-45.0) L 06/02/19 05:45 Plt Count 188 K/uL (152-406) 06/02/19 05:45 PT 11.7 SECONDS (9.5-12.5) 05/31/19 18:09 INR 0.99 05/31/19 18:09 Sodium 144 mmol/L (136-145) 06/02/19 05:45 Potassium 3.5 mmol/L (3.5-5.1) 06/02/19 05:45 BUN 8 mg/dL (7-18) 06/02/19 05:45 Creatinine 0.62 mg/dL (0.55-1.3) 06/02/19 05:45 Glucose 89 mg/dL (74-106) 06/02/19 05:45 Phosphorus 2.5 mg/dL (2.5-4.9) 06/01/19 06:23 Magnesium 1.8 mg/dL (1.8-2.4) 06/02/19 05:45 Total Bilirubin 0.3 mg/dL (0.2-1.0) 06/02/19 05:45 AST 123 U/L (15-37) H D 06/02/19 05:45 ALT 54 U/L (12-78) 06/02/19 05:45 Alkaline Phosphatase 95 U/L (45-117) 06/02/19 05:45 Home Medications: Lorazepam [Ativan] 1 mg PO BID 12/12/18 Metformin HCl 500 mg PO BID 6AM 6PM 12/12/18 Metoprolol Succinate [Toprol Xl] 50 mg PO BID 6AM 6PM 12/12/18 Tramadol HCl [Ultram] 50 mg PO PRN PRN 12/12/18 Eszopiclone [Lunesta] 3 mg PO BEDTIME #1 tablet 12/13/18 Amlodipine [Norvasc*] 1 tab PO DAILY 01/30/19 Atorvastatin Calcium [Lipitor] 1 tab PO BEDTIME 01/30/19 Venlafaxine HCl *Xr* [Effexor XR] 1 tab PO DAILY 01/30/19 Melatonin [Melatonin*] 3 mg PO BEDTIME 05/31/19 Azithromycin Tab [Zithromax*] 250 mg PO DAILY #4 tab 06/02/19 New Medications: Azithromycin Tab [Zithromax*] 250 mg PO DAILY #4 tab Patient Discharge Instructions: f/up w PCP in 2-3 days. f/up w plastic surgeon Dr. Jackson on Sunday. Return to ER for worsening condition Diet: AHA Activity: Ad bridget Followup: Dionte Jackson MD [ACTIVE - CAN ADMIT] -
[2019-06-02] MEDS ORDERED: ESZOPICLONE 1 MG TAB PO SCH (21:00)
--- NOTE | 2019-06-03 01:23 | DS ---
Date of Discharge: 06/02/2019 History: The patient is a 73-year-old white female who is right-hand dominant, who approximately 2 days ago was bitten by a stray cat. She presented to a family doctor after that, started on antibiotics,and was admitted for the cat bite. She has previous surgery of hysterectomy, had previous medical problems of diabetes, hypertension, CVA, anxiety, hyperlipidemia, diverticulosis. She has multiple allergies, see her list. She had medications for her diabetes as well as hypertension. Physical Examination: The left hand over the wrist area, there were 2 bites on one surface and one on the other. The cat bite was from way down ulnar, transverse across the wrist area. The laceration of her superficial x-rays revealed no foreign body, no gas , no fractures. She had minimal redness at this time. Assessment: Cellulitis secondary to the cat bite. Plan: I will see her again tomorrow. If she continues to improve, we will continue to observe her; otherwise, she might need exploration. She may have infection with Pasteurella, very slow growing infectious process that may return even in a month. SOHEILA/ERI Voice ID: [id number] Report ID: [id number] ROSAS
== END 2019-06-02 18:20 | disposition home or self-care (01) ==
LOC: ER 16:57 → ERHOLD 20:27 → 2ND 21:36
PROVIDERS: ADMIT Internal Medicine; ATTEND Internal Medicine
DX: L03.114 Cellulitis of left upper limb (principal); A28.1 Cat-scratch disease; E87.6 Hypokalemia; E83.42 Hypomagnesemia; E11.65 Type 2 diabetes mellitus with hyperglycemia; Z86.73 Personal history of transient ischemic attack (TIA), and cerebral infarction without residual deficits; G31.84 Mild cognitive impairment of uncertain or unknown etiology; F41.1 Generalized anxiety disorder; G47.00 Insomnia, unspecified; K57.90 Diverticulosis of intestine, part unspecified, without perforation or abscess without bleeding; E78.2 Mixed hyperlipidemia; K21.9 Gastro-esophageal reflux disease without esophagitis; Z88.2 Allergy status to sulfonamides; Z91.030 Bee allergy status; Z88.0 Allergy status to penicillin; Z91.013 Allergy to seafood
CPT/HCPCS: 96365; 96367; 96361; 87040 ×2; 85025 ×3; 80048 ×2; 36415 ×2; 83735 ×2; 84100; 84132; 85610; 82947 ×8; 80076; 83605; 80053; 84145; 73120; 97116; 97161; 96375; 99285; J0456 ×2; J1650 ×2; J3475; J7030 ×4; J7040; J1580 ×3; G0378 ×4

== ENCOUNTER 2019-08-11 23:13 | Observation (INO) | payer OTHER ==
--- OUTSIDE RECORDS SUMMARY | 2019-08-11 23:17 | XMS REPORT ---
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 Assessment Chronic kidney disease, N18.9 Acti ve unspecified CKD stage Assessment Cat scratch W55.03XA Active Assessment Hypertension, unspecified type I10 Active Problem 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 Problem Vitamin D deficiency E55.9 Active Problem Depression with anxiety F41.8 Acti ve Problem Abdominal pain, unspecified R10.9 Active abdominal [...] scratch W55.03XA Active Problem Cerebellar cerebrovascular I63.9 A ctive accident (CVA) without late effect Problem Hyperlipidemia, unspecified E78.5 Active hyperlipidemia type Problem Forgetfulness R68.89 Active Problem Chronic kidney disease, N18.9 Acti ve unspecified CKD stage Problem Other chronic pain G89.29 Active Problem Diverticulitis K57.92 Active Problem Pain in left shoulder M25.512 Active Problem Right hip pain M25.551 Active Assessment Pain in left shoulder M25.512 Active Problem Claudication in peripheral I73.9 A ctive vascular disease Assessment Forgetfulness R68.89 Active Problem Allergic rhinitis J30.9 Active Assessment Bilateral low back pain without M54.5 Active sciatica, unspecified chronicity Problem IBS (irritable colon syndrome) K58.9 Active Assessment Other chronic pain G89.29 Active Problem Benign essential HTN I10 Active Problem Grief F43.21 Active Problem Grief reaction F43.21 Active Problem Hyperlipemia E78.5 Active Problem Gastro-esophageal reflux K21.9 Act marlen Medications Medication Code Code Instructions Start End Status Dosage System Date Date Mupirocin [facility] 83029567566 2 % Externally Active 1 a pplication Two times a day to affec yossi area Ativan [facility] 24485654224 1 MG Orally Active 1 tablet Three times a day Lunesta [facility] 66225676211 3 MG Orally Active 1 tablet Once a day immediately before bedtime Donepezil HCl [facility] 26834033513 5 MG Orally Active 1 tablet at Once a day bedtime EpiPen 2-Ney [facility] [address]-42 0.3 MG/0.3ML Active not defined (1:1000) Intramuscular Gabapentin [facility] 03887130057 100 mg Orally Active 1 c apsule Twice a day as needed for pain Bactrim DS [facility] 82887384093 800-160 MG Active 1 tabl et Orally Twice a day Effexor XR [facility] 41904567095 75 MG Orally Active 3 ca psules Once a day Metoprolol [facility] 91981054571 50 MG Orally Active 1 ta blet Tartrate Twice a day Vitamin D [facility] 45741767981 2000 UNIT Active 1 tablet Orally Once a day Atorvastatin [facility] 93963728515 20 Orally Once Active 1 tablet in Calcium a day evening Metformin HCl [facility] 39234850191 500 Orally Active 1 t ablet Twice a day Amlodipine [facility] 97794498751 10 MG Orally Active 1 ta blet Besylate Once a day Cardura [facility] 58010814394 2 MG Orally Active 1 tablet in Once a day evening Simvastatin [facility] 06869023319 40 MG Orally Active 1 t ablet in Once a day the evening Bentyl [facility] 72963559031 20 MG Orally Active 1 table t Four times a day Mupirocin [facility] 83413127468 2 % Externally May 14May Active 1 a pplication Three times a 2019 04, to affecte d day 2019 Protonix [facility] 72091426503 20 MG Orally Active 1 tabl et Once a day Protonix [facility] 86530793875 40 MG Orally Active 1 tabl et Once a day Lotrisone [facility] 08061760190 1-0.05 % Active 1 applica tion Externally to affected Twice a day area Bactroban [facility] 05154701955 2 % Externally Active 1 a pplication Three times a to affecte d day area Results No Known Results Summary Purpose eClinicalWorks Submission
--- OUTSIDE RECORDS SUMMARY | 2019-08-11 23:17 | XMS REPORT ---
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 Chronic Chronic Problem Active kidney kidney disease, disease, unspecified unspecified CKD stage CKD stage Cat scratch Cat scratch Problem Active Benign Benign Problem Active essential essential HTN HTN Vitamin D Vitamin D Problem Active deficiency deficiency Depression Depression Problem Active with with anxiety anxiety Abdominal Abdominal Problem Active pain, pain, unspecified unspecified abdominal abdominal location location Diverticuli Diverticuli Problem Active tis of tis of large large intestine intestine without without perforation perforation or abscess or abscess without without bleeding bleeding Memory loss Memory loss Problem Active Low back Low back Problem Active pain pain Right leg Right leg Problem Active pain pain Cerebellar Cerebellar Problem Active cerebrovasc cerebrovasc ular ular accident accident (CVA) (CVA) without without late effect late effect Forgetfulne Forgetfulne Problem Active ss ss Other Other Problem Active chronic chronic pain pain Diverticuli Diverticuli Problem Active tis tis Pain in Pain in Problem Active left left shoulder shoulder Right hip Right hip Problem Active pain pain Claudicatio Claudicatio Problem Active n in n in peripheral peripheral vascular vascular disease disease Allergic Allergic Problem Active rhinitis rhinitis IBS IBS Problem Active (irritable (irritable colon colon syndrome) syndrome) Grief Grief Problem Active reaction reaction Left hand Left hand Problem Active pain pain Swelling of Swelling of Problem Active left hand left hand Hypokalemia Hypokalemia Problem Active Skin Skin Problem Active erythema erythema Abnormal Abnormal Problem Active renal renal function function test test Elevated Elevated Problem Active TSH TSH Allergies, Adverse Reactions, Alerts Allergy Allergy Status Severity Reaction(s) Onset Inactive Treating C omments Name Type Date Date Clinician codeine Adverse Active Info Not Reaction Available PCN Adverse Active Info Not Reaction Available bee sting Adverse Active Info Not Reaction Available Medications Ordered Filled Start Stop Current Ordering Indication Dosage Frequency Signature Comments Components Medication Medication Date Date Medication? Clinician (SIG) Name Name Keflex Keflex 2019- Yes Lorraine 1 capsule 05-30 Millender 00:00: 00:00 00 :00 Diflucan Diflucan 2019- Yes Lorraine as 05-30 Millender directed 00:00: 00:00 00 :00 Mupirocin Mupirocin 2019- Yes Lorraine 1 05-14 Millender applicatio 00:00: 00:00 n to 00 :00 affected area Ativan Ativan Yes Lorraine 1 tablet Millender Lunesta Lunesta Yes Lorraine 1 tablet Millender immediatel y before bedtime Donepezil Donepezil Yes Lorraine 1 tablet HCl HCl Millender at bedtime EpiPen EpiPen Yes Lorraine not 2-Ney 2-Ney Millender defined Gabapentin Gabapentin Yes Lorraine 1 capsule Millender Bactrim DS Bactrim DS Yes Lorraine 1 tablet Millender Effexor XR Effexor XR Yes Lorraine 3 capsules Millender Metoprolol Metoprolol Yes Lorraine 1 tablet Tartrate Tartrate Millender Vitamin D Vitamin D Yes Lorraine 1 tablet Millender Atorvastati Atorvastati Yes Lorraine 1 tablet n Calcium n Calcium Millender in eveni ng Metformin Metformin Yes Lorraine 1 tablet HCl HCl Millender Amlodipine Amlodipine Yes Lorraine 1 tablet Besylate Besylate Millender Cardura Cardura Yes Lorraine 1 tablet Millender in evening Simvastatin Simvastatin Yes Lorraine 1 tablet Millender in the evening Bentyl Bentyl Yes Lorraine 1 tablet Millender Protonix Protonix Yes Lorraine 1 tablet Millender Protonix Protonix Yes Lorraine 1 tablet Millender Lotrisone Lotrisone Yes Lorraine 1 Millender applicatio n to affected area Bactroban Bactroban Yes Lorraine 1 Millender applicatio n to affected area Immunizations Ordered Immunization Name Filled Immunization Name Date Sta tus Comments TDAP > 7 Years-Adacel TDAP > 7 Years-Adacel 2019-05-30 Completed 00:00:00 Encounters Start End Encounter Admission Attending Care Care Encounter Date/Time Date/Time Type Type Clinicians Facility Department ID 2019-06-03 2019-06-03 [facility] [id number] 03:07:00 03:07:00 [facility] 2019-05-30 2019-05-30 [id number] 15:00:00 15:00:00 [facility] 2019-05-19 2019-05-19 [facility] [id number] 19:21:00 19:21:00 [facility] 2019-05-14 2019-05-14 [facility] [id number] 00:12:00 00:12:00 [facility] 2019-05-13 2019-05-13 [facility] [id number] 23:58:00 23:58:00 [facility] 2019-05-13 2019-05-13 [facility] [id number] 13:45:00 13:45:00 [facility]
--- OUTSIDE RECORDS SUMMARY | 2019-08-11 23:18 | XMS REPORT ---
:1945 Author Organization [employer] Care Team Providers Name Role Phone Lorraine Donnelly Provider Role Unavailable Allergies No Known Allergies Problems Problem Type Condition Code Onset Dates Condition Statu s Problem Type II diabetes mellitus with E11.21 [...] M25.551 Active Problem Claudication in peripheral I73.9 A ctive vascular disease Problem Allergic rhinitis J30.9 Active Problem IBS (irritable colon syndrome) K58.9 Active Problem Benign essential HTN I10 Active Problem Grief F43.21 Active Problem Grief reaction F43.21 Active Problem Hyperlipemia E78.5 Active Problem Gastro-esophageal reflux K21.9 Act marlen Medications No Known Medications Results No Known Results Summary Purpose eClinicalWorks Submission
--- OUTSIDE RECORDS SUMMARY | 2019-08-11 23:18 | XMS REPORT ---
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 Problem Chronic kidney disease, N18.9 Acti ve unspecified CKD stage Problem Vitamin D deficiency E55.9 Active Problem Hyperlipidemia, unspecified E78.5 Active hyperlipidemia type Problem Depression with anxiety F41.8 Acti ve Problem IBS (irritable colon syndrome) K58.9 Active Problem Cerebellar cerebrovascular I63.9 A ctive accident (CVA) without late effect Problem Benign essential HTN I10 Active Problem Right hip pain M25.551 Active Problem Abdominal pain, unspecified R10.9 Active abdominal location Problem Claudication in peripheral I73.9 A ctive vascular disease Problem Pain in left shoulder M25.512 Active Problem Bilateral low back pain without M54.5 Active sciatica, unspecified chronicity Problem Forgetfulness R68.89 Active Problem Left hand pain M79.642 Active Problem Swelling of left hand M79.89 Active Problem Gastro-esophageal reflux K21.9 Act marlen Problem Hyperlipemia E78.5 Active Assessment Swelling of left hand M79.89 Active Problem Hypokalemia E87.6 Active Problem Allergic rhinitis J30.9 Active Assessment Skin erythema L53.9 Active Problem Skin erythema L53.9 Active Problem Cat scratch W55.03XA Active Problem Abnormal renal function test R94.4 Active Problem Elevated TSH R79.89 Active Assessment Hypokalemia E87.6 Active Problem Diverticulitis K57.92 Active Assessment Elevated TSH R79.89 Active Problem Memory loss R41.3 Active Assessment Need for Tdap vaccination Z23 Ac tive Problem Grief F43.21 Active Assessment Abnormal renal function test R94.4 Active Problem Grief reaction F43.21 Active Assessment Left hand pain M79.642 Active Problem Low back pain M54.5 Active Assessment Cat scratch W55.03XA Active Problem Other chronic pain G89.29 Active Problem Right leg pain M79.604 Active Problem Diverticulitis of large intestine K57.32 Active without perforation or abscess without bleeding Medications Medication Code Code Instructions Start End Status Dosage System Date Date EpiPen 2-Ney [facility] [address]-80 0.3 MG/0.3ML Active not defined (1:1000) Intramuscular Bactrim DS [facility] 19538313059 800-160 MG Active 1 tabl et Orally Twice a day Cardura [facility] 27693923888 2 MG Orally Active 1 tablet in Once a day evening Bactroban [facility] 43025314087 2 % Externally Active 1 a pplication Three times a to affecte d day area Metoprolol [facility] 15255442403 50 MG Orally Active 1 ta blet Tartrate Twice a day Effexor XR [facility] 29642715736 75 MG Orally Active 3 ca psules Once a day Protonix [facility] 41556264188 20 MG Orally Active 1 tabl et Once a day Vitamin D [facility] 62949158816 2000 UNIT Active 1 tablet Orally Once a day Lotrisone [facility] 71295040774 1-0.05 % Active 1 applica tion Externally to affected Twice a day area Bentyl [facility] 39249273596 20 MG Orally Active 1 table t Four times a day Amlodipine [facility] 34327805664 10 MG Orally Active 1 ta blet Besylate Once a day Simvastatin ND 74815656105 40 MG Orally Active 1 t ablet in Once a day the evening Lunesta [facility] 95418371453 3 MG Orally Active 1 tablet Once a day immediately before bedtime Gabapentin [facility] 32367561671 100 mg Orally Active 1 c apsule Twice a day as needed for pain Mupirocin [facility] 61993926281 2 % Externally Active 1 a pplication Two times a day to affec yossi area Protonix [facility] 02913268658 40 MG Orally Active 1 tabl et Once a day Donepezil HCl [facility] 48466775150 5 MG Orally Active 1 tablet at Once a day bedtime Atorvastatin ND 88729106541 20 Orally Once Active 1 tablet in Calcium a day evening Ativan ND 82278290941 1 MG Orally Active 1 tablet Three times a day Diflucan [facility] 70839393493 150 MG Orally 1 May 30, May Active as directed tablet now; 2019 12, then repeat 2019 after completing abx. Keflex [facility] 04796980723 500 MG Orally May 30, May Active 1 caps ule every 12 hrs 2019 Metformin HCl [facility] 07611936681 500 Orally Active 1 t ablet Twice a day Results No Known Results Immunizations Vaccine Administration Date TDAP > 7 Years-Adacel May 30, 2019 Summary Purpose eClinicalWorks Submission
--- OUTSIDE RECORDS SUMMARY | 2019-08-11 23:18 | XMS REPORT ---
[...] K21.9 Act marlen Problem Hyperlipemia E78.5 Active Problem Hypokalemia E87.6 Active Problem Allergic rhinitis J30.9 Active Problem Skin erythema L53.9 Active Problem Cat scratch W55.03XA Active Problem Abnormal renal function test R94.4 Active Problem Elevated TSH R79.89 Active Problem Diverticulitis K57.92 Active Problem Memory loss R41.3 Active Problem Grief F43.21 Active Problem Grief reaction F43.21 Active Problem Low back pain M54.5 Active Problem Other chronic pain G89.29 Active Problem Right leg pain M79.604 Active Problem Diverticulitis of large intestine K57.32 Active without perforation or abscess without bleeding Medications No Known Medications Results No Known Results Summary Purpose eClinicalWorks Submission
[2019-08-12] MEDS ORDERED: MORPHINE 4 MG/ML SYR ONE (00:38)
[2019-08-12] MEDS ORDERED: ONDANSETRON 4 MG (ODT) TAB ONE (00:38)
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
[2019-08-12 02:02] LABS: Urine Blood NEGATIVE (NEG); Urine Glucose NEGATIVE (NEG); Urine Protein NEGATIVE (NEG)
[2019-08-12] MEDS ORDERED: MORPHINE 2 MG/ML SYR IV PRN (02:22)
[2019-08-12] MEDS ORDERED: ONDANSETRON 4 MG/2 ML VIAL IV PRN (02:22)
[2019-08-12] MEDS ORDERED: NA CHLORIDE 0.9% 1,000 ML IV SCH (03:00)
[2019-08-12 03:33] LABS: Protime INR 0.88
[2019-08-12 03:40] LABS: Albumin 4.3 g/dL (3.4-5.0); Bilirubin Total 0.3 mg/dL (0.2-1.0); Potassium 3.9 mmol/L (3.5-5.1); Protein, Total 8.3 g/dL (6.4-8.2)
[2019-08-12 04:49] VITALS: BMI 22.3
[2019-08-12] MEDS ORDERED: ACETAMINOPHEN 325 MG TABLET PO PRN (04:56)
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
[2019-08-12] MEDS ORDERED: ALPRAZOLAM 0.25 MG TABLET PO PRN (07:23)
--- NOTE | 2019-08-12 07:44 | RAD REPORT ---
EXAM DESCRIPTION: RAD - Knee Left 3 View - 08/11/2019 11:52 pm CLINICAL HISTORY: Left knee pain status post injury FINDINGS: No fracture or dislocation is seen.
[2019-08-12] MEDS ORDERED: PNEUMOCOCCAL VACCINE 0.5 ML IMVAC ONE (08:00)
[2019-08-12] MEDS ORDERED: LORAZEPAM 0.5 MG TABLET PO PRN (08:51)
[2019-08-12] MEDS ORDERED: DOXAZOSIN 2 MG TAB PO SCH (09:00)
[2019-08-12] MEDS ORDERED: METOPROLOL TAR 50 MG TAB PO SCH (09:00)
[2019-08-12] MEDS ORDERED: AMLODIPINE 10 MG TAB PO SCH (09:00)
[2019-08-12] MEDS ORDERED: ASPIRIN EC 325 MG TABLET PO SCH (09:00)
[2019-08-12] MEDS ORDERED: PANTOPRAZOLE 40MG TABLET PO SCH (09:00)
[2019-08-12] MEDS ORDERED: VENLAFAXINE HCL 75 MG TABLET PO SCH (09:00)
[2019-08-12] MEDS ORDERED: GABAPENTIN 100 MG CAP PO SCH (09:00)
--- NOTE | 2019-08-12 10:23 | RAD REPORT ---
EXAM DESCRIPTION: CT - Head C Spine Cap Wo Con - 08/12/2019 5:12 am CLINICAL HISTORY: The patient is 73 years old and is Female; LOWER BACK PAIN TECHNIQUE: Axial computed tomography images of the head/brain and cervical spine without intravenous contrast. Sagittal and coronal reformatted images were created and reviewed. This CT exam was pe rformed using one or more of the following dose reduction techniques: automated exposure control, a djustment of the mA and/or kV according to patient size, and/or use of iterative reconstruction techn ique. COMPARISON: CT of the head January 06, 2019 FINDINGS: BRAIN: There is diffuse cerebral atrophy present, consistent with this patient's age. There is patchy hypoattenuation of the deep white matter which is non-specific, but most likely owing to chron ic small vessel ischemic change in a patient of this age group. Bilateral basal ganglia calcificati ons are present. No intracranial hemorrhage, mass effect, or midline shift is seen. There are no extr a-axial fluid collections. Evidence of prior bilateral basal ganglia lacunar infarcts are noted. VENTRICLES: Unremarkable. No ventriculomegaly. SKULL: No acute fracture. SINUSES: Unremarkable as visualized. No acute sinusitis. MASTOID AIR CELLS: Unremarkable as visualized. No mastoid effusion. VERTEBRAE: Reversal of the normal cervical curvature is present. The vertebral body heights an d alignment are maintained. DISCS/SPINAL CANAL/NEURAL FORAMINA: Intervertebral disc space narrowing with osteophyte formation and facet arthropathy is noted. Neural foraminal narrowing secondary to disc osteophyte complexes at C4-C5 and C5-C6 is present. SOFT TISSUES: The soft tissues are normal. VASCULATURE: Atherosclerosis of intracranial vasculature is present. LUNG APICES: The lung apices are clear. IMPRESSION: 1. No acute intracranial findings. 2. Moderate spondylosis of the cervical spine without acute findings. CT Chest, Abdomen and Pelvis Without Intravenous Contrast CLINICAL HISTORY: The patient is 73 years old and is Female; LOWER BACK PAIN TECHNIQUE: Axial computed tomography images of the chest, abdomen and pelvis without intravenous con trast. Sagittal and coronal reformatted images were created and reviewed. This CT exam was perfor med using one or more of the following dose reduction techniques: automated exposure control, adjus tment of the mA and/or kV according to patient size, and/or use of iterative reconstruction technique . COMPARISON: CT of the abdomen and pelvis January 30, 2019 FINDINGS: CHEST: LUNGS: There is mild subsegmental atelectasis and/or scarring in bilateral lung bases. PLEURAL SPACE: Unremarkable. No significant effusion. No pneumothorax. HEART: No cardiomegaly. No pericardial effusion. ABDOMEN: LIVER: Homogeneous without focal mass. GALLBLADDER AND BILE DUCTS: Surgical clips are present in the right upper quadrant, consistent wi th previous cholecystectomy. PANCREAS: The pancreas is atrophic. No ductal dilation. SPLEEN: Unremarkable. ADRENALS: Unremarkable. No mass. KIDNEYS AND URETERS: Postsurgical change of the left kidney is noted. There is no hydronephrosis or hydroureter of either kidney. STOMACH AND BOWEL: The stomach is moderately distended with food contents. The small bowel is no rmal in caliber. Stool is present throughout the colon. Scattered colonic diverticula are noted witho ut surrounding inflammation. PELVIS: APPENDIX: The appendix is normal in caliber without surrounding inflammation. BLADDER: The bladder is well distended. No stones. REPRODUCTIVE: The patient is status post hysterectomy. CHEST, ABDOMEN and PELVIS: INTRAPERITONEAL SPACE: Unremarkable. No significant fluid collection. No free air. BONES/JOINTS: There is no acute fracture of the visualized axial and appendicular skeleton. Minim al degenerative change of the lumbar spine is present. Intervertebral disc space narrowing with osteo phyte formation and facet arthropathy is noted most prominent at L4-L5 and L5-S1. Mild disc bulges at these levels are noted causing neural foraminal narrowing as well. SOFT TISSUES: The soft tissues are normal. VASCULATURE: Atherosclerosis of the vasculature is present. No aortic aneurysm. LYMPH NODES: Unremarkable. No enlarged lymph nodes. IMPRESSION: No evidence of solid organ injury or traumatic bony findings on this noncontrasted CT of the chest, abdomen, and pelvis. Electronically signed by: Radha Brown MD 08/12/2019 1:04 AM CDT Due to temporary technical issues with the PACS/Fluency reporting system, reports are being signed by the in house radiologist as a courtesy to ensure prompt reporting. The interpreting radiologist is f ully responsible for the content of the report.
[2019-08-12 11:14] LABS: Absolute Lymphocytes (CBC) 1.8 K/uL (0.7-4.9); Basophils % 0.8 % (0-1.3); Hematocrit 41.1 % (36.0-45.0); Lymphocytes % 18.3 % (15.3-44.8); MPV 10.7 fL (7.6-11.3); RBC Red Blood Cell Count 4.69 M/uL (3.86-4.86)
[2019-08-12 11:33] LABS: Magnesium 1.8 mg/dL (1.8-2.4); Phosphorus 2.5 mg/dL (2.5-4.9); Potassium 3.7 mmol/L (3.5-5.1)
[2019-08-12 12:27] VITALS: O2SAT 97
[2019-08-12 13:01] VITALS: BP 153/76; TEMP 98.6
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
[2019-08-12] MEDS ORDERED: ATORVASTATIN 20 MG TAB PO SCH (21:00)
[2019-08-12] MEDS ORDERED: DONEPEZIL HCL 5 MG TAB PO SCH (21:00)
== END 2019-08-12 15:20 | disposition home or self-care (01) ==
LOC: ER 23:13 → ERHOLD 08-12 02:27 → 2ND 08-12 02:50
PROVIDERS: ADMIT Hospitalist; ATTEND Hospitalist
DX: G44.319 Acute post-traumatic headache, not intractable (principal); F07.81 Postconcussional syndrome; I10 Essential (primary) hypertension; E11.9 Type 2 diabetes mellitus without complications; F41.8 Other specified anxiety disorders; F03.90 Unspecified dementia, unspecified severity, without behavioral disturbance, psychotic disturbance, mood disturbance, and anxiety; Z86.73 Personal history of transient ischemic attack (TIA), and cerebral infarction without residual deficits; T74.11XA Adult physical abuse, confirmed, initial encounter; Y07.43 Stepparent or stepsibling, perpetrator of maltreatment and neglect
CPT/HCPCS: 85025; 80048; 36415; 83735; 84100; 85610; 85730; 81003; 80053; 70450; 71250; 72125; 73562; 90670; 97116; 97161; 96372; 99285; J7030; G0378 ×2

== ENCOUNTER 2019-08-24 04:36 | Emergency (ER) | payer OTHER ==
--- OUTSIDE RECORDS SUMMARY | 2019-08-24 04:39 | XMS REPORT ---
:1945 [facility] Team Providers Name Role Phone [...] End Status Dosage System Date Date Mupirocin [facility] 88037753946 2 % Externally Active 1 a pplication Two times a day to affec yossi area Ativan [facility] 32088489000 1 MG Orally Active 1 tablet Three times a day Lunesta [facility] 07920148060 3 MG Orally Active 1 tablet Once a day immediately before bedtime Donepezil HCl [facility] 76836084356 5 MG Orally Active 1 tablet at Once a day bedtime EpiPen 2-Ney [facility] [address]-36 0.3 MG/0.3ML Active not defined (1:1000) Intramuscular Gabapentin [facility] 33368535942 100 mg Orally Active 1 c apsule Twice a day as needed for pain Bactrim DS [facility] 06403246528 800-160 MG Active 1 tabl et Orally Twice a day Effexor XR [facility] 47923203113 75 MG Orally Active 3 ca psules Once a day Metoprolol [facility] 98537184328 50 MG Orally Active 1 ta blet Tartrate Twice a day Vitamin D [facility] 43681855644 2000 UNIT Active 1 tablet Orally Once a day Atorvastatin [facility] 33549959947 20 Orally Once Active 1 tablet in Calcium a day evening Metformin HCl [facility] 73082680343 500 Orally Active 1 t ablet Twice a day Amlodipine [facility] 34548979798 10 MG Orally Active 1 ta blet Besylate Once a day Cardura [facility] 70617864584 2 MG Orally Active 1 tablet in Once a day evening Simvastatin [facility] 78804495417 40 MG Orally Active 1 t ablet in Once a day the evening Bentyl [facility] 33101098644 20 MG Orally Active 1 table t Four times a day Mupirocin [facility] 29354399648 2 % Externally May 14May Active 1 a pplication Three times a 2019 04, to affecte d day 2019 Protonix [facility] 26449109243 20 MG Orally Active 1 tabl et Once a day Protonix [facility] 96924890577 40 MG Orally Active 1 tabl et Once a day Lotrisone [facility] 50141237004 1-0.05 % Active 1 applica tion Externally to affected Twice a day area Bactroban [facility] 75042266955 2 % Externally Active 1 a pplication Three times a to affecte d day area Results No Known Results Summary Purpose eClinicalWorks Submission
--- OUTSIDE RECORDS SUMMARY | 2019-08-24 04:39 | XMS REPORT ---
:[address] [facility] t Address [address] [place] [address] Care Team Providers Name Role Phone Unavailable [...] 00:00: 00:00 00 :00 Mupirocin Mupirocin 2019- No Lorraine 1 05-14 Millender applicatio 00:00: 00:00 [...] n to affected area Bactroban Bactroban Yes Lorarine 1 Millender applicatio n to affected area Immunizations Ordered Immunization Name Filled Immunization Name Date Comments TDAP > 7 Years-Adacel TDAP > 7 Years-Adacel 2019-05-30 Completed 00:00:00 Encounters Start End Encounter Admission Attending Care Care Encounter Date/Time Date/Time Type Type Clinicians Facility Department ID 2019-06-03 2019-06-03 [facility] [id number] 03:07:00 03:07:00 [facility] 2019-05-30 2019-05-30 [facility] [id number] 15:00:00 15:00:00 [facility] 2019-05-19 2019-05-19 [facility] [id number] 19:21:00 19:21:00 [facility] 2019-05-14 2019-05-14 [facility] [id number] 00:12:00 00:12:00 [facility] 2019-05-13 2019-05-13 [facility] [id number] 23:58:00 23:58:00 [facility] 2019-05-13 2019-05-13 [facility] [id number] 13:45:00 13:45:00 [facility]
--- OUTSIDE RECORDS SUMMARY | 2019-08-24 04:40 | XMS REPORT ---
[...] Status Dosage System Date Date EpiPen 2-Ney [facility] [address]-18 0.3 MG/0.3ML Active not defined (1:1000) Intramuscular Bactrim DS [facility] 51695196918 800-160 MG Active 1 tabl et Orally Twice a day Cardura [facility] 44963435481 2 MG Orally Active 1 tablet in Once a day evening Bactroban [facility] 17951286192 2 % Externally Active 1 a pplication Three times a to affecte d day area Metoprolol [facility] 56243782487 50 MG Orally Active 1 ta blet Tartrate Twice a day Effexor XR [facility] 97066582888 75 MG Orally Active 3 ca psules Once a day Protonix [facility] 63483943318 20 MG Orally Active 1 tabl et Once a day Vitamin D [facility] 01633783821 2000 UNIT Active 1 tablet Orally Once a day Lotrisone [facility] 14618986170 1-0.05 % Active 1 applica tion Externally to affected Twice a day area Bentyl [facility] 03928404620 20 MG Orally Active 1 table t Four times a day Amlodipine [facility] 02304852048 10 MG Orally Active 1 ta blet Besylate Once a day Simvastatin ND 81274981557 40 MG Orally Active 1 t ablet in Once a day the evening Lunesta [facility] 66445298747 3 MG Orally Active 1 tablet Once a day immediately before bedtime Gabapentin [facility] 33066287144 100 mg Orally Active 1 c apsule Twice a day as needed for pain Mupirocin [facility] 48382752882 2 % Externally Active 1 a pplication Two times a day to affec yossi area Protonix [facility] 21630473880 40 MG Orally Active 1 tabl et Once a day Donepezil HCl [facility] 51924916361 5 MG Orally Active 1 tablet at Once a day bedtime Atorvastatin ND 36509571409 20 Orally Once Active 1 tablet in Calcium a day evening Ativan ND 03860770147 1 MG Orally Active 1 tablet Three times a day Diflucan [facility] 55880374352 150 MG Orally 1 May 30, May Active as directed tablet now; 2019 12, then repeat 2019 after completing abx. Keflex [facility] 17393570051 500 MG Orally May 30, May Active 1 caps ule every 12 hrs 2019 Metformin HCl [facility] 87069433940 500 Orally Active 1 t ablet Twice a day Results No Known Results Immunizations Vaccine Administration Date TDAP > 7 Years-Adacel May 30, 2019 Summary Purpose eClinicalWorks Submission
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
[2019-08-24] MEDS ORDERED: ACETAMINOPHEN 325 MG TABLET ONE (06:04)
[2019-08-24 07:01] VITALS: BP 140/78; TEMP 98; O2SAT 100
--- NOTE | 2019-08-24 12:07 | RAD REPORT ---
EXAM DESCRIPTION: RAD - Hand Right 2 View - 08/24/2019 6:05 am CLINICAL HISTORY: PAIN COMPARISON: Wrist Left 2 View dated 08/24/2019; Shoulder Left 2 View dated 08/24/2019 FINDINGS: Mild osteopenia is seen. 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 Soft tissue swelling is present along the dorsal aspect of the mid hand. No acute fracture seen.
--- NOTE | 2019-08-24 12:14 | RAD REPORT ---
EXAM DESCRIPTION: RAD - Shoulder Left 2 View - 08/24/2019 6:05 am CLINICAL HISTORY: PAIN COMPARISON: No comparisons FINDINGS: No acute fracture or dislocation.
--- NOTE | 2019-08-24 12:14 | RAD REPORT ---
EXAM DESCRIPTION: RAD - Wrist Left 2 View - 08/24/2019 6:05 am CLINICAL HISTORY: PAIN Pain COMPARISON: Wrist Left 2 View dated 04/23/2014; Hand Right 2 View dated 08/24/2019 FINDINGS: Diffuse osteopenia is seen. No fracture or dislocation evident. Mild radiocarpal arthriti c changes.
== END 2019-08-24 06:53 | disposition home or self-care (01) ==
LOC: ER 04:36
DX: S40.012A Contusion of left shoulder, initial encounter (principal); S60.212A Contusion of left wrist, initial encounter; S60.221A Contusion of right hand, initial encounter; F41.9 Anxiety disorder, unspecified; E11.9 Type 2 diabetes mellitus without complications; Y04.2XXA Assault by strike against or bumped into by another person, initial encounter; Y93.89 Activity, other specified; Y92.9 Unspecified place or not applicable; Z88.0 Allergy status to penicillin; Z88.2 Allergy status to sulfonamides; Z88.5 Allergy status to narcotic agent; Z88.8 Allergy status to other drugs, medicaments and biological substances; Z91.013 Allergy to seafood; Z91.030 Bee allergy status; Z91.038 Other insect allergy status; Z91.041 Radiographic dye allergy status; I10 Essential (primary) hypertension; G30.9 Alzheimer's disease, unspecified; F02.80 Dementia in other diseases classified elsewhere, unspecified severity, without behavioral disturbance, psychotic disturbance, mood disturbance, and anxiety; Z85.528 Personal history of other malignant neoplasm of kidney
CPT/HCPCS: 99283

== ENCOUNTER 2019-08-29 05:25 | Emergency (ER) | payer OTHER ==
--- OUTSIDE RECORDS SUMMARY | 2019-08-29 05:29 | XMS REPORT | Continuity of Care Document ---
:1945 Author Organization [facility] Care Team Providers Name Role Phone [facility] Unavailable Un available Problems Problem Status Onset Classification Date Comments Sourc e Date Reported CVA Active 02/18/[address] AMS. 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, systemic N euro, arterial [place] (disorder) [facility] Hyperlipidemia Active Problem 06/29/2019 Misc her (disorder) Neuro Lumbar Active Problem 06/29/2019 [facility] radiculopathy Neuro (disorder) Memory impairment Active Problem 06/29/2019 [place] (finding) Neuro Transient ischemic Active Problem 06/29/2019 [facility] attack (disorder) Ne uro Tremor (finding) Active Problem 06/29/2019 [place] [facility] Medication Details Route Status Patient Ordering Order Source Instructions Provider Date Aspirin 81 MG 81 mg = 1 Active [place] Enteric Coated tab, PO, 020 Neuro Tablet Daily, # 90 tab, 3 Refill(s) donepezil 5 mg = 1 tab, Active [place] oral tablet PO, 020 Neuro Bedtime, # 30 tab, 2 Refill(s), Pharmacy: [id number] Metformin 500 mg, PO, Active [place] 0 Refill(s) 019 Neuro Effexor 75 mg, PO, Active [place] 0 Refill(s) 019 Neuro atorvastatin 50 mg, PO, Active [place] Daily, 0 019 Neuro Refill(s) pantoprazole 20 40 mg = 2 Active [place] r mg oral enteric tab, PO, 019 Neuro coated tablet Daily, # 60 tab, 0 Refill(s) eszopiclone 3 mg 3 mg = 1 Active [place] r oral tablet tab, PO, 019 Neuro Bedtime, PRN for insomnia, 0 Refill(s) Donepezil 5 mg = 1 Active [place] hydrochloride 5 tab, PO, 019 Neuro MG Oral Tablet Bedtime, # [Aricept] 30 tab, 3 Refill(s), Pharmacy: [facility] [id number] Amlodipine 10 MG 10 mg = 1 Active Misch er Oral Tablet tab, PO, 019 Neuro [Norvasc] Daily, # 30 tab, 1 Refill(s) gabapentin 100 MG 100 mg = 1 Active [place] Oral Capsule cap, PO, 019 Neuro BID, 0 Refill(s) Effexor 75 mg, PO, Active [place] Daily, 0 019 Neuro Refill(s) Tramadol 50 mg, PO, Active [place] Q4-6H, PRN 019 Neuro Pain, # 20 tab, 0 Refill(s) Lorazepam 0 Refill(s) Active [place] 019 Neuro Omeprazole 40 mg, No Longer [facility] Route: PO, Active 014 Medical Drug form: Jose A JEREZ, Daily, Dosing Weight 81.818, kg, Start date: 02/19/14 9:00:00, Duration: 30 day, Stop date: 03/20/14 9:00:00 Losartan Notes: No Longer [facility] (Same as: Active 014 Medical Cozaar) Center Zetia Notes: No Longer [facility] (Same as: Active 014 Medical [facility]) Transfer Protonix Notes: No Longer [facility] Tablet Active 014 Medical should not Center be chewed or crushed. (Same as: Protonix) gabapentin 300 MG Notes: [place] Longer [place] Oral Capsule (Same as: Active 014 Medical [Neurontin] Neurontin) Center Simvastatin Notes: Inactive [facility] (Same as: 014 Medical Zocor) Center Restoril Notes: Inactive [facility] (Same As: 014 Medical Restoril) Center Bentyl Notes: Inactive [facility] (Same as: 014 Medical Bentyl) Center Metoclopramide 10 Notes: [place] Oral Tablet (Same as: 014 Medical [Reglan] Reglan) Center Take 30 min before meals Lorazepam Notes: Inactive [facility] (Same as: 014 Medical Ativan) Transfer Lunesta 3 mg, Inactive [facility] Route: PO, 014 Medical Drug form: Center TAB, Bedtime, Dosing Weight 81.818, kg, PRN as needed for insomnia, Start date: 02/18/14 17:53:00, Stop date: 03/20/14 17:52:00 meclizine 25 mg 25 mg = 1 On Hold [place] oral tablet tab, PO, 014 Medical TID, for Center dizziness, # 60 tab, 0 Refill(s) losartan 50 mg 50 mg = 1 [place] oral tablet tab, PO, 014 Medical Daily, # 30 Center tab, 0 Refill(s) omeprazole 40 mg 40 mg = 1 [place] oral delayed cap, PO, 014 Medical release capsule Daily, # 30 Cent er cap, 0 Refill(s) promethazine 12.5 12.5 mg = 1 On Hold [facility] mg oral tablet tab, PO, 014 Medical Q4H, Nausea Center & Vomiting, # 60 tab, 0 Refill(s) ezetimibe 10 MG 10 mg = 1 On Hold [place] Oral Tablet tab, PO, 014 Medical [Zetia] Daily, # 30 Center tab, 0 Refill(s) gabapentin 300 MG 300 mg = 1 On Hold [facility] Oral Capsule cap, PO, 014 Medical [Neurontin] TID, # 90 Center cap, 0 Refill(s) clopidogrel Notes: Inactive [facility] (Same As: 014 Medical Plavix) Center Aspirin 325 MG Notes: (Do Inactive [place] Enteric Coated Not Crush) [facility] Medica l Tablet Do not Center crush or chew. Keppra Notes: Inactive [facility] (Same [facility] Medical as:Keppra) Transfer tramadol Notes: Not Inactive [facility] hydrochloride 50 to exceed [facility] Medic al MG Oral Tablet 400mg/day. Center (Same As: [facility]) Lorazepam Notes: Inactive [facility] (Same as: [address] [place] [address] Ativan) Transfer Loratadine Notes: 1 hr Inactive [facility] before [facility] Medical meals Center (Same as: Claritin) Ondansetron 4 mg, Inactive [facility] Route: IVP, [facility] Medical Drug form: Transfer INJ, ONCE, Dosing Weight 81.818, kg, Priority: STAT, Start date: 02/17/14 23:19:00, Stop date: 02/17/14 23:19:00 Benadryl 25 mg, Inactive [facility] Route: IVP, 014 Medical ONCE, Center Dosing Weight 81.818, kg, PRN Itching, Start date: 02/17/14 22:50:00 Meclizine 0 Refill(s) No Longer [address] Losartan 0 Refill(s) No Longer [address] Promethazine 0 Refill(s) [place] Longer [place] Active [address] [place] [address] Zetia 0 Refill(s) No Longer [address] Rogaine 0 Refill(s) No Longer [address] Lunesta 0 Refill(s) No Longer [address] Lipitor Notes: Same No Longer [facility] as Lipitor Active [address] [place] [address] Saline Flush 0.9% Notes: No Longer [place] (Same as: Active [address] [place] [address] Posiflush) Famotidine Notes: No Longer [facility] (Same as: Active [address] [place] [address] Pepcid) Transfer Tylenol 650 mg, Inactive [facility] Route: PO, [facility] Medical Drug form: Transfer TAB, ONCE, Dosing Weight 81.818, kg, Priority: STAT, Start date: 02/17/14 18:43:00, Stop date: 02/17/14 18:43:00 Dicyclomine 20 mg = 1 On Hold [place] Hydrochloride 20 tab, PO, 014 Medica l MG Oral Tablet Q6H, as Center [Bentyl] needed for irritable bowel Eszopiclone 3 MG 3 mg = 1 On Hold [place] Oral Tablet tab, PO, 014 Medical [Lunesta] Bedtime, Center for insomnia clarithromycin 500 mg = 1 No Longer [place] 500 mg oral tab, PO, Active 014 Medical tablet BID, 0 Center Refill(s) Metoclopramide 10 10 mg = 1 On [place] MG Oral Tablet tab, PO, 014 Medical [Reglan] QID-Before Center Meals, as needed for gastropares is, 0 Refill(s) ciprofloxacin 500 500 mg = 1 No Longer [place] mg oral tablet tab, PO, Active 014 Medical BID Center simvastatin 40 mg 40 mg = 1 [place] oral tablet tab, PO, 014 Medical Daily, # 30 Center tab, 0 Refill(s) montelukast 10 MG 10 mg = 1 [place] Oral Tablet tab, PO, 014 Medical [Singulair] QAM, as Center needed for allergies (in the Spring only), # 30 tab, 0 Refill(s) metoprolol 50 mg = 1 On Hold [place] tartrate 50 mg tab, PO, 014 Medical oral tablet BID, # 180 Center tab, 0 Refill(s) LORazepam 1 mg 1 mg = 1 On Hold [place] oral tablet tab, PO, 014 Medical BID, Center Anxiety Zofran 4 mg, Inactive [facility] Route: IVP, 014 Medical Drug form: Transfer INJ, ONCE, Dosing Weight 81.818, kg, Priority: STAT, Start date: 02/17/14 16:53:00, Stop date: 02/17/14 16:53:00 heparin, porcine Notes: [place] Longer [place] porcine Active 014 [facility] heparin Center Saline Flush 0.9% 10 ml, Inactive [place] Route: IVP, 014 Medical Drug Form: Center INJ, Dosing Weight 81.818, kg, PRN, PRN Line Flush, Start date: 02/17/14 15:43:00, Duration: 30 day, Stop date: 03/19/14 14:42:00 Labetalol 105mmHg No Longer [facility] Active 014 [facility] Center Acetaminophen Notes: Do No Longer [place] not exceed Active [facility] Medical 4 gm/day. Center (Same as: Tylenol) Sodium Chloride 1,000 mL, No Longer [place] 0.154 MEQ/ML Rate: 100 Active [facility] Medical Injectable ml/hr, Center Solution Infuse over: 10 hr, Route: IV, Dosing Weight 81.818 kg, Total Volume: 1,000, Start date: 02/17/14 15:43:00, Duration: 30 day, Stop date: 03/19/14 15:42:00 Plavix Notes: ( Inactive [facility] Same as: [address] [place] [address] Plavix) Transfer aspirin Notes: Take Inactive [facility] with food. [address] [place] [address] Sodium Chloride 1,000 mL, Inactive [place] 0.154 MEQ/ML 1,000 014 Medical Injectable ml/hr, Center Solution Infuse Over: 1 hr, Route: IV, 1,000, Drug form: INJ, ONCE, Priority: STAT, Dosing Weight 81.818 kg, Start date: 02/17/14 15:16:00, Duration: 1 doses or times, Stop date: 02/17/14 15:16:00 iodixanol Special Inactive [facility] Instruction 014 Medical s: Dose = Center 2.2ml/kg, Max dose = 150ml -- "To be infused by Radiology Staff ONLY" iodixanol Special Inactive [facility] Instruction 014 Medical s: Dose = Center 2.2ml/kg, Max dose = 150ml -- "To be infused by Radiology Staff ONLY" Sodium Chloride 1,000 mL, Inactive [place] 0.154 MEQ/ML 1,000 014 Medical Injectable ml/hr, Center Solution Infuse Over: 1 hr, Route: IV, 1,000, Drug form: INJ, ONCE, Priority: STAT, Dosing Weight 81.818 kg, Start date: 02/17/14 12:51:00, Duration: 1 doses or times, Stop date: 02/17/14 12:51:00 Saline Flush 0.9% Notes: No Longer [place] (Same as: Active [address] [place] [address] Posiflush) Allergies, Adverse Reactions, Alerts Substance Category Reaction Severity Reaction Status Date Comments S ource type Reported codeine Assertion Drug Active Mische r allergy Neuro penicillin Assertion Drug Active [place] allergy Neuro Immunizations No Data Provided for This Section Results Order Name Results Value Reference Date Interpretation Comments Mikaela rce Range SPECIAL Hgb A1C 6.6 <=5.6 % 02/18 [facility] CHEMISTRY [facility] LIPIDS CHD Risk 3.80 3.90 - 02/18 [facility] 5.80 [facility] LIPIDS Chol 167 <=199 02/18 [facility] mg/dL [facility] LIPIDS HDL 44 >=61 mg/dL 02/18 [facility] LIPIDS Trig 182 <=149 02/18 [facility] mg/dL [facility] LIPIDS VLDL 36 02/18 [facility] LIPIDS LDL 87 <=99 mg/dL 02/18 [facility] (Calculated) [facility] ANEMIA % [place] 34 12 - 57 02/18 [facility] ANEMIA TIBC 342 228 - 428 02/18 [facility] STUDY [facility] ANEMIA UIBC 227 110 - 370 02/18 [facility] STUDY [facility] ANEMIA Iron 115 30 - 160 02/18 [facility] ANEMIA Ferritin Lvl 97 5 - 204 02/18 [facility] CHEM PANEL Lactic Acid 1.9 0.5 - 2.2 02/17 [place] L[place] /2013 [facility] URINE AND UA Mucus None Seen None Seen 02/17 [facility] STOOL (02/17/14 2:18 PM) /2013 [facility] Center URINE AND UA Sq Epi Few /LPF Few /LPF 02/17 [facility] STOOL [facility] URINE AND UA RBC None Seen 0 - 2 02/17 [facility] STOOL (02/17/14 2:18 PM) /2013 [facility] URINE AND UA Bacteria Occasional None Seen 02/17 [place] STOOL /HPF /HPF /2013 [facility] URINE AND UA WBC 0-2 /HPF None Seen 02/17 [facility] STOOL /HPF Medical Transfer URINE AND UA Spec Grav 1.020 <=1.030 02/17 [facility] STOOL [facility] URINE AND UA Color Yellow Yellow 02/17 [facility] STOOL *NA* /2013 Medical (02/17/14 2:18 PM) Cente r URINE AND UA Turbidity Clear Clear 02/17 [facility] (02/17/14 2:18 PM) [facility] URINE AND UA Leuk Est Negative Negative 02/17 [facility] (02/17/14 2:18 PM) [facility] URINE AND UA Nitrite Negative Negative 02/17 [facility] (02/17/14 2:18 PM) [facility] URINE AND UA 0.2 0.1 - 1.0 02/17 [facility] Urobilinogen [facility] URINE AND UA Blood Negative Negative 02/17 [facility] (02/17/14 2:18 PM) [facility] URINE AND UA Bili Negative Negative 02/17 [facility] *NA* /2013 Medical (02/17/14 2:18 PM) Cente r URINE AND UA Glucose Negative Negative 02/17 [facility] (02/17/14 2:18 PM) [facility] URINE AND UA Ketones Negative Negative 02/17 [facility] *NA* /2013 Medical (02/17/14 2:18 PM) Cente r URINE AND UA Protein Negative Negative 02/17 [facility] (02/17/14 2:18 PM) [facility] URINE AND UA pH 6.5 5.0 - 8.0 02/17 [facility] STOOL [facility] CARDIAC CK MB 3.4 0.5 - 3.6 02/17 [facility] ENZYMES [facility] CARDIAC Troponin-I 0.07 0.00 - 02/17 [facility] ENZYMES 0.40 [facility] CARDIAC Total CK 123 12 - 191 02/17 [facility] ENZYMES [facility] CARDIAC CK MB Index 2.8 0.0 - 2.5 02/17 [facility] ENZYMES [facility] CHEM PANEL eGFR 02/17 <sup>1</sup>[place] esult Medical Comment: The Center eGFR is [...] PANEL Creatinine 1.4 0.5 - 1.4 02/17 [facility] CHEM PANEL Glucose Lvl 211 70 - 99 02/17 <sup>2</sup>I nterpretive Medical Data: Adult Center reference range values reflect the clinical guidelines
of the [place] [employer]. CHEM PANEL BUN 13 7 - 22 02/17 [facility] CHEM PANEL B/C Ratio 9 6 - 25 02/17 [facility] CHEM PANEL AGAP 16.8 10.0 - 02/17 20. [facility] CHEM PANEL Calcium Lvl 8.8 8.5 - 10.5 02/17 [facility] CHEM PANEL CO2 23 24 - 32 02/17 [facility] CHEM PANEL Chloride Lvl 105 95 - 109 02/17 [facility] CHEM PANEL Sodium Lvl 141 135 - 145 02/17 [facility] CHEM PANEL Potassium Lvl 3.8 3.5 - 5.1 02/17 [facility] CHEM PANEL A/G Ratio 1.0 0.7 - 1.6 02/17 [facility] CHEM PANEL Total Protein 7.0 6.4 - 8.4 02/17 [facility] CHEM PANEL Albumin Lvl 3.5 3.5 - 5.0 02/17 [facility] CHEM PANEL AST 24 0 - 37 02/17 [facility] CHEM PANEL ALT 28 0 - 65 02/17 [facility] CHEM PANEL Bili Total 0.6 0.2 - 1.3 02/17 [facility] CHEM PANEL Alk Phos 94 39 - 136 02/17 [facility] CHEM PANEL Globulin 3.5 2.0 - 4.0 02/17 [facility] CHEM PANEL Lactic Acid 4.9 0.5 - 2.2 02/17 <sup>3</sup>R [facility] [place] Lvl esult Medical Comment: Center Critical Result(s) called to Dr. Stefanie Tamez at 02/17/2014 12:[address] Read back OK. HEMATOLOGY INR 0.95 0.85 - 02/17 <sup>4</sup>I Ирина rollins 1. nterpretive Medical Data: Center RECOMMENDED RANGES FOR PROTIME INR:
2.0-3.0 for most medical and surgical thromboemboli c states.
2.5-3.5 for artificial heart valves and recurrent embolism.<br/ >
INR SHOULD BE USED ONLY FOR PATIENTS ON STABLE ANTICOAGULANT THERAPY. HEMATOLOGY PT 12.7 12.0 - 02/17 14.7 [facility] HEMATOLOGY Platelet 205 133 - 450 02/17 [facility] HEMATOLOGY MCH 29.0 27.0 - 02/17 31.0 [facility] HEMATOLOGY MCHC 33.7 32.0 - 02/17 [place] 36.0 [facility] HEMATOLOGY RDW 13.6 11.5 - 02/17 14.5 [facility] HEMATOLOGY Hct 51.8 36.0 - 02/17 [place] 48.0 /2013 [facility] HEMATOLOGY MCV 86.2 80.0 - 02/17 [place] 98.0 /2013 [facility] HEMATOLOGY Hgb 17.4 12.0 - 02/17 16.0 [facility] HEMATOLOGY RBC 6.01 4.20 - 02/17 [place] 5.40 /2013 [facility] HEMATOLOGY MPV 11.5 7.4 - 10.4 02/17 [facility] HEMATOLOGY WBC 14.1 3.7 - 10.4 02/17 [facility] HEMATOLOGY PTT 21.8 22.9 - 02/17 <sup>5</sup>I [place] 35.8 nterpretive Medical Data: Heparin Center Therapeutic Range: 57 - 92 Seconds HEMATOLOGY Plt Morph Normal 02/17 [facility] (02/17/14 12:09 PM) [facility] HEMATOLOGY RBC Morph Normal 02/17 [facility] (02/17/14 12:09 PM) [facility] HEMATOLOGY Eosinophils # 0.1 0.0 - 0.5 02/17 [facility] HEMATOLOGY Basophils # 0.1 0.0 - 0.2 02/17 [facility] HEMATOLOGY Segs-Bands # 10.8 1.5 - 8.1 02/17 [facility] HEMATOLOGY Monocytes # 0.6 0.0 - 0.8 02/17 [facility] HEMATOLOGY Lymphocytes # 2.5 1.0 - 5.5 02/17 [facility] HEMATOLOGY Lymphocytes 17.5 20.0 - 02/17 40.0 [facility] HEMATOLOGY Segs 77.0 45.0 - 02/17 [place] 75.0 [facility] HEMATOLOGY Monocytes 4.3 2.0 - 12.0 02/17 [facility] HEMATOLOGY Basophils 0.4 0.0 - 1.0 02/17 [facility] HEMATOLOGY Eosinophils 0.8 0.0 - 4.0 02/17 [facility] Pathology Reports No Data Provided for This Section Diagnostic Reports No Data Provided for This Section Consultation Notes No Data Provided for This Section Discharge Summaries No Data Provided for This Section History and Physicals No Data Provided for This Section Vital Signs Vital Sign Value Date Comments Source Systolic (mm Hg) 102 06/26/2019 [facility] Citlali ro Diastolic (mm Hg) 59 06/26/2019 [facility] Ne uro Heart Rate 70 06/26/2019 [facility] Neuro Respitory Rate 16 06/26/2019 [facility] Neuro Height 157.48 cm 06/26/2019 [facility] Neuro Weight 58.182 06/26/2019 [facility] Neuro BMI Calculated 23.46 06/26/2019 [facility] Neuro Systolic (mm Hg) 143 01/15/2019 [facility] Citlali ro Diastolic (mm Hg) 76 01/15/2019 [facility] Ne uro Heart Rate 66 01/15/2019 [facility] Neuro Respitory Rate 16 01/15/2019 [facility] Neuro Height 157.48 cm 01/15/2019 [facility] Neuro Weight 56.818 01/15/2019 [facility] Neuro BMI Calculated 22.91 01/15/2019 [facility] Weight 55.455 10/29/2018 [facility] Neuro BMI Calculated 22.36 10/29/2018 [facility] Neuro Height 157.48 cm 10/29/2018 [facility] Neuro Systolic (mm Hg) 136 10/29/2018 [facility] Cit[place]ali ro Diastolic (mm Hg) 86 10/29/2018 [facility] Respitory Rate 16 10/29/2018 [facility] Neuro Heart Rate 71 10/29/2018 [facility] Neuro Weight 57.273 09/27/2018 [facility] Neuro BMI Calculated 23.86 09/27/2018 [facility] Neuro Height 154.94 cm 09/27/2018 [facility] Neuro Respitory Rate 16 09/27/2018 [facility] Neuro Systolic (mm Hg) 153 09/27/2018 [facility] [place] [facility] Diastolic (mm Hg) 85 09/27/2018 [facility] Ne uro Heart Rate 60 09/27/2018 [facility] Neuro Systolic (mm Hg) 195 02/18/2014 [facility] dical Center Diastolic (mm Hg) 92 02/18/2014 [facility] edical Center Respitory Rate 18 02/18/2014 [facility] Center Systolic (mm Hg) 159 02/18/2014 [facility] dical Center Diastolic (mm Hg) 91 02/18/2014 [facility] Resp[facility] Rate 27 02/18/2014 [facility] Center Systolic (mm Hg) 144 02/18/2014 [facility] dical Center Diastolic (mm Hg) 77 02/18/2014 [facility] Respitory Rate 27 02/18/2014 [facility] Temperature Oral (F) 99.5 F 02/18/2014 [facility] Height 172.72 cm 02/17/2014 [facility] BMI Calculated 27.43 02/17/2014 [facility] Weight 81.818 02/17/2014 [facility] Transfer Heart Rate 120 02/17/2014 [facility] Encounters Location Location Encounter Encounter Reason Attending ADM DC Stat us Source Details Type Number For Provider Date Date Visit [facility] [id number] [place] 02/17 02/19 Rachel Koenigales /2013 [facility] MNA Outpatient [id number] Oscar 09/27 09/28 [facility] Neurology Kre /2018 [facility] [id number] Oscar 10/[address] [facility] MNA Outpatient [id number] Oscar 10/29 10/30 [facility] Neurology Kre Neuro [facility] Outpatient [id number] Oscar 12/10 Active [facility] MNA Ambulatory [id number] Oscar 12/10 12/10 [facility] Neurology Pre-Reg Kre Neuro [facility] Outpatient [id number] Oscar 01/15 Active [facility] MNA Outpatient [id number] Oscar 01/15 01/16 [facility] Neurology Kre Neuro [facility] Outpatient [id number] Oscar 01/[address] [facility] MNA Ambulatory [id number] Oscar 01/29 01/29 [facility] Neurology Pre-Reg Kre Neuro [facility] Outpatient [id number] Oscar 02/[address] [facility] MNA Ambulatory [id number] Oscar 02/04 02/04 [facility] Neurology Pre-Reg Kre Neuro [place] MNA Outside [id number] 03/18 03/20 [facility] /2018 Neuro [facility] Records Outpatient [id number] Oscar 06/25 [facility] MNA Outpatient [id number] Oscar 06/25 06/26 [facility] Neurology Kre Neuro [facility] Outpatient [id number] Oscar 11/06 [facility] Procedures Procedure Code Date Perfomer Comments Source Back fusion [id number] [facility] Neuro,[facility] Assessment and Plan Assessment and Plan Date Source Extracted from:Title: Stroke Fellow H/P 02/19/2014 [facility] Author: Robert Martinez MD Date: 02/17/14 STROKE TEAM / NEUROLOGY - HISTORY AND PHYSICAL Attending of Record: Susannah Betancourt Patient Name: Vernell, Female (Josephine Nicolas is real nam e) Date of Admission: 02/17/14 Requesting Physician/Service: EM CC: Lt hemiparesis and syncope HISTORY OF PRESENT ILLNESS: 68 yo RH Cau casian female with a h/o HTN, prior stroke [...] h she took probiotics. At around 10:15 a m, patient mentioned to her that she was [...] On arrival to the scene, EMS reports pat giancarlo was hemiparetic on the left side. Her BP on arrival to [facility] ED at was 126/90 and her glucose was 211. Patient's exam has been non focal although she chuy ears disoriented, unable to recollect th e earlier events of the day and making a few paraphasic errors. At baseline, and son Marcos report that patient has suffered cognitive decline (mostly as azul rt term memory loss) after her 2006 stro ke. 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 She is otherwise fully independent per [...] cramps LYMPH/IMMUNO: No lymph node enlargement/tenderness, no heat/ cold intolerance PAST MEDICAL HISTORY: HTN, prior stroke in 2005 with presenting sx as left hemiparesis and no residual deficit, diverticulitis. PAST SURGICAL HISTORY: Hysterectomy, ilir k surgery, renal malignant tumor resection (no metatstases, CTX or XRT) FAMILY MEDICAL HISTORY: Stroke in younge r son in his 40s, hypertension, father of CT, mother of lung cancer. SOCIAL HISTORY: The patient is . She lives with her son and . No history of alcohol use, tobacco use (smoking and dipping), or drug use (prior and current). MEDICATIONS: unknown at this time. ALLERGIES: NKDA PHYSICAL EXAM: Vital Signs: Temperature 96 Blood Press ure 126-184/79-99 Pulse 90-110 Respirations 20 O2 sats 99% on RA GENERAL: Awake, alert, NAD. HEENT: - Normocephalic and atraumatic; MMM LUNGS - Clear to auscultation bilaterally with no wheezes CV - S1S2 RRR, no m/r/g, equal pulses bilaterally. ABDOMEN - Soft, nontender, nondistended with normoactive BS NEURO: Mental status: Awake, alert, and interac tive. Oriented to self. Knew the month was January but not the day of week. She thought the year was 2014. Did not know the location. Answers questions and follow s commands appropriately. She keeps casimiro gutierrez why her is not present at the bedside (he was on his way to the hospital). She made a few paraphasic errors such as she said "gideon" instead of "left" but caught herself. Comprehens ion, fluency, naming and repetition are intact. Cranial [...] and distally. Sensation: intact to light touch, pinpri ck, temperature and vibration throughout. Coordination: no dysmetria on ntmwur-pxac-sbxvwe. Reflexes: R Biceps 2+, Triceps 2+, Brach ioradialis 2+, Patella 2+, Ankle 2+. L Biceps 2+, Triceps 2+, Brachioradialis 2+, Patella 2+, Ankle 2+. Toes downgoing bilaterally. Gait: not tested. NIH Stroke Scale (NIHSS) 1a. Level of Consciousness; 0-alert 1-drowsy 2-stupor 3-com atose 0 1b. LOC Questions month and age; 0-both 1-one 2-neither 1 (said she was 62) 1c. 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 Best Gaze; 0-nl 1-partial 2-forced gaze 0 3. Visual Quesada; 0-No visual loss. 1-P artial hemianopia 2-Complete 3-Bilateral 䠦0 4. Facial Palsy; 0-none 1-minor 2-partial 3-complete 0 5. Motor - R arm; 0-No drift 1-Drift 2- Some antigravity 3-No antigravity 4-No movement 𓅛 0 6. Motor - R leg; 0-No drift 1-Drift 2- Some antigravity 3-No antigravity 4-No movement  0 7. Motor - L arm; 0-No drift 1-Drift 2- Some antigravity 3-No antigravity 4-No movement ّ 0 8. Motor - L leg; 0-No drift 1-Drift 2- Some antigravity 3-No antigravity 4-No movement 쫭 0 9. Limb Ataxia; 0 absent 1 - 1limb 2 - 2 limbs 0 10. Sensory; 0-nl 1-partial loss 2-dense loss 0 11. Best Language; 0-nl 1-mild/mod 2-severe 3-mute 0 12. Dysarthria; 0-nl 1-mild/mod 2-severe x-untestable 0 13. 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 - Questionable age-indeterminate ischemic change in the righ t thalamus. - No hemorrhage. 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 - Diffuse intracranial atherosclerosis m ost evident in the left MCA, bilateral trapper animal and basilar artery. 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 - Atherosclerosis of the carotid bifurca tions without significant stenosis by NASCET criteria. MRI head: no DWI abnormality. CSVI changes in the PWM. EKG: NSR ASSESSMENT: 1. Suspected TIA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
--- OUTSIDE RECORDS SUMMARY | 2019-08-29 05:30 | XMS REPORT | Summary of Care ---
:1945 Author Organization [facility] Neurology [place] Address [address] [place] [address]- phone Encounter HQ Encntr_alias(FIN) [id number] Date(s): 02/04/19 - 02/04/19 [facility] [address] [place] [address]- [phone] Attending Physician: Oscar Ceballos MD Referring Physician: Lorraine Donnelly MD Vital Signs No data available for this section Problem List Condition Effective Dates Status Health Status Informant CVA (cerebral vascular Resolved accident)(Confirmed) Dementia(Confirmed) Active Depression(Confirmed) Active Diabetes mellitus type II(Confirmed) Active Diverticulitis(Confirmed) Resolved HDL(Confirmed) Resolved HTN (hypertension)(Confirmed) Resolved Hyperlipidemia(Confirmed) Active Hypertension(Confirmed) Active Lumbar radiculopathy(Confirmed) Active Memory loss(Confirmed) Active Brain TIA(Confirmed) Active Tremor(Confirmed) Active Allergies, Adverse Reactions, Alerts Substance Reaction Severity Status codeine Active penicillin Active Medications No data available for this section Results No data available for this section Immunizations No data available for this section Procedures Procedure Date Related Diagnosis Body Site Status Back fusion Completed Social History Social History Type Response Alcohol Never Employment/School 1, 2 Exercise Exercise duration: 30. Exer cise type: Walking, Yoga. Sexual Sexually active: No. Substance Abuse Use: None. Smoking Status Never smoker; Exposure to To bacco Smoke None; Cigarette Smoking Last 365 Days No; Reg Smoking Cessation Counseling No entered on: 01/15/19 1may release medical records to: Edna Pate(POA), Cristela Dyer(Sister) 2retried Assessment and Plan No data available for this section
--- OUTSIDE RECORDS SUMMARY | 2019-08-29 05:30 | XMS REPORT | Summary of Care ---
:1945 Author Organization [facility] Neurology [place] Address [address] [place] [address]- phone Encounter HQ Encntr_alias(FIN) [id number] Date(s): 01/29/19 - 01/29/19 [facility] [address] [place] [address]- [phone] Attending Physician: Oscar Ceballos MD Referring Physician: [...]
--- OUTSIDE RECORDS SUMMARY | 2019-08-29 05:30 | XMS REPORT | Summary of Care ---
:1945 Author Organization [facility] Neurology [place] Address [address] [place] [address]- Encounter HQ Ernesto_sisi(FIN) [id number] Date(s): 01/15/19 - 01/15/19 [facility] [address] [place], [place] [address]- [phone] Discharge Disposition: Home or Self Care Attending Physician: Oscar Ceballos MD Referring Physician: Lorraine Donnelly MD Vital Signs Most recent to oldest [Reference Range]: 1 Height 157.48 cm (01/15/19 11:55 AM) Blood Pressure [90-140/60-90 mmHg] 143/76 mmHg *HI* (01/15/19 11:55 AM) Respiratory Rate [14-20 BRMIN] 16 BRMIN (01/15/19 11:55 AM) Peripheral Pulse Rate [60-100 bpm] 66 bpm (01/15/19 11:55 AM) Weight 56.818 kg (01/15/19 11:55 AM) Body Mass Index 22.91 m2 (01/15/19 11:55 AM) Problem List Condition Effective Dates Status Health Status Informant CVA (cerebral vascular Resolved accident)(Confirmed) Dementia(Confirmed) Active Depression(Confirmed) Active Diabetes mellitus type II(Confirmed) Active Diverticulitis(Confirmed) Resolved HDL(Confirmed) Resolved HTN (hypertension)(Confirmed) Resolved Hyperlipidemia(Confirmed) Active Hypertension(Confirmed) Active Lumbar radiculopathy(Confirmed) Active Memory loss(Confirmed) Active Brain TIA(Confirmed) Active Tremor(Confirmed) Active Allergies, Adverse Reactions, Alerts Substance Reaction Severity Status codeine Active penicillin Active Medications atorvastatin 50 mg, PO, Daily, 0 Refill(s) Start Date: 01/15/19 Status: OrderedEffexor 75 mg, PO, 0 Refill(s) Start Date: 01/15/19 Status: Orderedeszopiclone 3 mg oral tablet 3 mg = 1 tab, PO, Bedtime, PRN for insomnia, 0 Refill(s) Start Date: 01/15/19 Stop Date: 01/29/19 Status: OrderedmetFORMIN 500 mg, PO, 0 Refill(s) Start Date: 01/15/19 Status: Orderedpantoprazole 20 mg oral enteric coated tablet 40 mg = 2 tab, PO, Daily, # 60 tab, 0 Refill(s) Start Date: 01/15/19 Status: Ordered Results No data available for this section [...]
--- OUTSIDE RECORDS SUMMARY | 2019-08-29 05:30 | XMS REPORT | Summary of Care ---
:1945 Author Organization [facility] [address] Address [address] [place] [address]- Encounter HQ Encntr_alias(FIN) [id number] Date(s): 03/18/19 - 03/19/19 [facility] [address] [place] [address]- [phone] Vital Signs No data available for this [...]
--- OUTSIDE RECORDS SUMMARY | 2019-08-29 05:30 | XMS REPORT | Summary of Care ---
:1945 Author Organization [facility] Neurology [place] Address [address] [place] [address]- Encounter HQ Jaquelin(FIN) [id number] Date(s): 06/26/19 - 06/26/19 [facility] [address] [place], [place] [address]- [phone] Discharge Disposition: Home or Self Care Attending Physician: Oscar Ceballos MD Referring Physician: Lorraine Donnelly MD Vital Signs Most recent to oldest [Reference Range]: 1 Height 157.48 cm (06/26/19 3:51 PM) Blood Pressure [90-140/60-90 mmHg] 102/59 mmHg (06/26/19 3:51 PM) Respiratory Rate [14-20 BRMIN] 16 BRMIN (06/26/19 3:51 PM) Peripheral Pulse Rate [60-100 bpm] 70 bpm (06/26/19 3:51 PM) Weight 58.182 kg (06/26/19 3:51 PM) Body Mass Index 23.46 m2 (06/26/19 3:51 PM) Problem List Condition Effective Dates Status Health Status Informant CVA (cerebral vascular Resolved accident)(Confirmed) Dementia(Confirmed) Active Depression(Confirmed) Active Diabetes mellitus type II(Confirmed) Active Diverticulitis(Confirmed) Resolved HDL(Confirmed) Resolved HTN (hypertension)(Confirmed) Resolved Hyperlipidemia(Confirmed) Active Hypertension(Confirmed) Active Lumbar radiculopathy(Confirmed) Active Memory loss(Confirmed) Active Brain TIA(Confirmed) Active Tremor(Confirmed) Active Allergies, Adverse Reactions, Alerts Substance Reaction Severity Status codeine Active penicillin Active Medications aspirin 81 mg tablet, enteric coated 81 mg = 1 tab, PO, Daily, # 90 tab, 3 Refill(s) Start Date: 06/26/19 Status: Ordereddonepezil 5 mg oral tablet = 1 tab, PO, Bedtime, # 30 tab, 2 Refill(s), Pharmacy: [id number] Start Date: 06/26/19 Status: Ordered Results No data available for [...] on: 06/26/19 1may release medical records to: Edna Pate(POA), Cristela Dyer(Sister) 2retried Assessment and Plan No data available for this section
--- OUTSIDE RECORDS SUMMARY | 2019-08-29 05:32 | XMS REPORT ---
:1945 Author [facility] Care Team Providers Name Role Phone [...] End Status Dosage System Date Date Mupirocin [facility] 68785193147 2 % Externally Active 1 a pplication Two times a day to affec yossi area Ativan [facility] 48993932227 1 MG Orally Active 1 tablet Three times a day Lunesta [facility] 30327514993 3 MG Orally Active 1 tablet Once a day immediately before bedtime Donepezil HCl [facility] 62041281613 5 MG Orally Active 1 tablet at Once a day bedtime EpiPen 2-Ney [facility] [address]-60 0.3 MG/0.3ML Active not defined (1:1000) Intramuscular Gabapentin [facility] 25383414605 100 mg Orally Active 1 c apsule Twice a day as needed for pain Bactrim DS [facility] 62513364169 800-160 MG Active 1 tabl et Orally Twice a day Effexor XR [facility] 93774614500 75 MG Orally Active 3 ca psules Once a day Metoprolol [facility] 55015906356 50 MG Orally Active 1 ta blet Tartrate Twice a day Vitamin D [facility] 51325147175 2000 UNIT Active 1 tablet Orally Once a day Atorvastatin [facility] 27102388838 20 Orally Once Active 1 tablet in Calcium a day evening Metformin HCl [facility] 60201159155 500 Orally Active 1 t ablet Twice a day Amlodipine [facility] 05517710693 10 MG Orally Active 1 ta blet Besylate Once a day Cardura [facility] 54498655768 2 MG Orally Active 1 tablet in Once a day evening Simvastatin [facility] 68147266289 40 MG Orally Active 1 t ablet in Once a day the evening Bentyl [facility] 09094023201 20 MG Orally Active 1 table t Four times a day Mupirocin [facility] 34477593913 2 % Externally May 14May Active 1 a pplication Three times a 2019 04, to affecte d day 2019 Protonix [facility] 96260289497 20 MG Orally Active 1 tabl et Once a day Protonix [facility] 17431558334 40 MG Orally Active 1 tabl et Once a day Lotrisone [facility] 86183215829 1-0.05 % Active 1 applica tion Externally to affected Twice a day area Bactroban [facility] 70188185365 2 % Externally Active 1 a pplication Three times a to affecte d day area Results No Known Results Summary Purpose eClinicalWorks Submission
--- OUTSIDE RECORDS SUMMARY | 2019-08-29 05:32 | XMS REPORT ---
:1945 Author Organization [facility] t Address [address] [place] [address] Care Team Providers Name Role Phone Unavailable [...] Clinician (SIG) Name Name Keflex Keflex 2019- No Lorraine 1 capsule 05-30 Millender 00:00: 00:00 00 :00 Diflucan Diflucan 2019- No Lorraine as 05-30 Millender directed 00:00: 00:00 [...] ID 2019-06-03 2019-06-03 [id number] 03:07:00 03:07:00 [facility] 2019-05-30 2019-05-30 [facility] [id number] 15:00:00 15:00:00 [facility] 2019-05-19 2019-05-19 [facility] [id number] 19:21:00 19:21:00 [facility] 2019-05-14 2019-05-14 [facility] [id number] 00:12:00 00:12:00 [facility] 2019-05-13 2019-05-13 [facility] [id number] 23:58:00 23:58:00 [facility] 2019-05-13 2019-05-13 [facility] [id number] 13:45:00 13:45:00 [facility]
--- OUTSIDE RECORDS SUMMARY | 2019-08-29 05:33 | XMS REPORT ---
[...] System Date Date EpiPen 2-Ney [facility] [address]-71 0.3 MG/0.3ML Active not defined (1:1000) Intramuscular Bactrim DS [facility] 14517411740 800-160 MG Active 1 tabl et Orally Twice a day Cardura [facility] 44827634010 2 MG Orally Active 1 tablet in Once a day evening Bactroban [facility] 40307204777 2 % Externally Active 1 a pplication Three times a to affecte d day area Metoprolol [facility] 50948572595 50 MG Orally Active 1 ta blet Tartrate Twice a day Effexor XR [facility] 89017230029 75 MG Orally Active 3 ca psules Once a day Protonix [facility] 66409012062 20 MG Orally Active 1 tabl et Once a day Vitamin D [facility] 93892208400 2000 UNIT Active 1 tablet Orally Once a day Lotrisone [facility] 75149590575 1-0.05 % Active 1 applica tion Externally to affected Twice a day area Bentyl [facility] 98562768321 20 MG Orally Active 1 table t Four times a day Amlodipine [facility] 15538307442 10 MG Orally Active 1 ta blet Besylate Once a day Simvastatin ND 88544700564 40 MG Orally Active 1 t ablet in Once a day the evening Lunesta [facility] 43341751142 3 MG Orally Active 1 tablet Once a day immediately before bedtime Gabapentin [facility] 93966184423 100 mg Orally Active 1 c apsule Twice a day as needed for pain Mupirocin [facility] 45194416891 2 % Externally Active 1 a pplication Two times a day to affec yossi area Protonix [facility] 73861386464 40 MG Orally Active 1 tabl et Once a day Donepezil HCl [facility] 91235775356 5 MG Orally Active 1 tablet at Once a day bedtime Atorvastatin ND 31844704769 20 Orally Once Active 1 tablet in Calcium a day evening Ativan ND 00935245978 1 MG Orally Active 1 tablet Three times a day Diflucan [facility] 68567944588 150 MG Orally 1 May 30, May Active as directed tablet now; 2019 12, then repeat 2019 after completing abx. Keflex [facility] 96735087053 500 MG Orally May 30, May Active 1 caps ule every 12 hrs 2019 Metformin HCl [facility] 92166058116 500 Orally Active 1 t ablet Twice a day Results No Known Results Immunizations Vaccine Administration Date TDAP > 7 Years-Adacel May 30, 2019 Summary Purpose eClinicalWorks Submission
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
[2019-08-29 12:20] VITALS: BP 155/84; O2SAT 99
== END 2019-08-29 10:03 | disposition home or self-care (01) ==
LOC: ER 05:25
DX: M54.5 Low back pain (principal); M25.512 Pain in left shoulder; M79.632 Pain in left forearm; M25.552 Pain in left hip; F41.9 Anxiety disorder, unspecified; G30.9 Alzheimer's disease, unspecified; F02.80 Dementia in other diseases classified elsewhere, unspecified severity, without behavioral disturbance, psychotic disturbance, mood disturbance, and anxiety; Y04.8XXA Assault by other bodily force, initial encounter; Y93.9 Activity, unspecified; Y92.003 Bedroom of unspecified non-institutional (private) residence as the place of occurrence of the external cause; I10 Essential (primary) hypertension; Z88.0 Allergy status to penicillin; Z88.2 Allergy status to sulfonamides; Z88.5 Allergy status to narcotic agent; Z91.013 Allergy to seafood; Z91.030 Bee allergy status; Z91.038 Other insect allergy status; Z91.041 Radiographic dye allergy status; Z85.528 Personal history of other malignant neoplasm of kidney
CPT/HCPCS: 70450; 72125; 72170; 99283

== ENCOUNTER 2019-10-11 06:12 | Emergency (ER) | payer OTHER ==
--- NOTE | 2019-10-11 06:25 | EDPHYS ---
Physician Documentation [facility] Name: Amber Acosta Age: 73 yrs Sex: Female : 1945 Arrival Date: 10/11/2019 Time: 06:16 Bed 6 Private MD: Lorraine Donnelly ED Physician Wolfgang Barrera HPI: 10/10 06:30 This 73 yrs old Female presents to ER via Wheelchair with complaints of snw Allergic reaction to ants. 06:30 Onset: The symptoms/episode began/occurred suddenly, yesterday. Associated signs and snw symptoms: Pertinent positives: itching. It is unknown whether or not the patient has had similar symptoms in the past. It is unknown whether or not the patient has recently seen a physician. Historical: - Allergies: 06:18 Bees; sg 06:18 Codeine; sg 06:18 hydrocodone bitartrate; sg 06:18 Iodinated Contrast Media - IV Dye; sg 06:18 Levofloxacin; sg 06:18 METRONIDAZOLE; sg 06:18 PENICILLINS; sg 06:18 SHELLFISH; sg 06:18 sulfamethoxazole; sg 06:18 TRIMETHOPRIM; sg 06:18 Wasps; sg - PMHx: 06:18 Alzheimers; Anxiety; CAD; CVA; Depression; Diabetes - NIDDM; GERD; High Cholesterol; sg Hypertension; kidney cancer; Migraines; - PSHx: 06:18 Hysterectomy; sg - Immunization history:: Adult Immunizations up to date. - Social history:: Smoking status: Patient denies any tobacco usage or history of. ROS: 06:30 Constitutional: Negative for fever, chills, and weight loss, Eyes: Negative for injury, snw pain, redness, and discharge, ENT: Negative for injury, pain, and discharge, Neck: Negative for injury, pain, and swelling, Cardiovascular: Negative for chest pain, palpitations, and edema, Respiratory: Negative for shortness of breath, cough, wheezing, and pleuritic chest pain, Abdomen/GI: Negative for abdominal pain, nausea, vomiting, diarrhea, and constipation, Back: Negative for injury and pain, : Negative for injury, bleeding, discharge, and swelling, MS/Extremity: Negative for injury and deformity, Neuro: Negative for headache, weakness, numbness, tingling, and seizure, Psych: Negative for depression, anxiety, suicide ideation, homicidal ideation, and hallucinations. 06:30 Skin: Positive for rash. Exam: 06:31 Constitutional: This is a well developed, well nourished patient who is awake, alert, snw and in no acute distress. Head/Face: Normocephalic, atraumatic. Eyes: Pupils equal round and reactive to light, extra-ocular motions intact. Lids and lashes normal. Conjunctiva and sclera are non-icteric, pale, not injected. Cornea within normal limits. Periorbital areas with no swelling, redness, or edema. ENT: Nares patent. No nasal discharge, no septal abnormalities noted. Tympanic membranes are normal and external auditory canals are clear. Oropharynx with no redness, swelling, or masses, exudates, or evidence of obstruction, uvula midline. Mucous membranes moist. Neck: Trachea midline, no thyromegaly or masses palpated, and no cervical lymphadenopathy. Supple, full range of motion without nuchal rigidity, or vertebral point tenderness. No Meningismus. Chest/axilla: Normal chest wall appearance and motion. Nontender with no deformity. No lesions are appreciated. Cardiovascular: Regular rate and rhythm with a normal S1 and S2. No gallops, murmurs, or rubs. Normal PMI, no JVD. No pulse deficits. Respiratory: Lungs have equal breath sounds bilaterally, clear to auscultation and percussion. No rales, rhonchi or wheezes noted. No increased work of breathing, no retractions or nasal flaring. Abdomen/GI: Soft, non-tender, with normal bowel sounds. No distension or tympany. No guarding or rebound. No evidence of tenderness throughout. Back: No spinal tenderness. No costovertebral tenderness. Full range of motion. MS/ Extremity: Pulses equal, no cyanosis. Neurovascular intact. Full, normal range of motion. Neuro: Awake and alert, GCS 15, oriented to person, place, time, and situation. Cranial nerves II-XII grossly intact. Motor strength 5/5 in all extremities. Sensory grossly intact. Cerebellar exam normal. Normal gait. 06:31 Skin: Appearance: normal except for affected area, rash can be described as papular, on the suprasternal notch, right sternocleidomastoid and left sternocleidomastoid and to upper chest and abdomen and anterior thighs. Vital Signs: 06:25 BP 140 / 93; Pulse 67; Resp 17; Temp 98.2; Pulse Ox 98% ; Weight 50 kg; Pain 0/10; rr5 MDM: 06:25 Patient medically screened. snw 06:29 Data reviewed: vital signs, nurses notes. Data interpreted: Pulse oximetry: on room air snw is 98 %. Interpretation: normal. Response to treatment: There is no appreciated change of the patient's symptoms at this time. Special discussion: I have referred the patient to see his PCP for further evaluation of high blood pressure. Based on the history and exam findings, there is no indication for further emergent testing or inpatient evaluation. I discussed with the patient/guardian the need to see the primary care provider for further evaluation of the symptoms. Administered Medications: 06:25 Drug: ZyrTEC - Cetirizine 10 mg Route: PO; rr5 06:36 Follow up: Response: Medication administered at discharge. rv Disposition: 08:56 Co-signature as Attending Physician, Wolfgang Barrera MD I agree with the assessment and tw4 plan of care. Disposition: 10/11/19 06:25 Discharged to Home. Impression: Insect bite (nonvenomous) of front wall of thorax, Insect bite (nonvenomous) of hip. - Condition is Stable. - Discharge Instructions: Insect Bite. - Prescriptions for Zyrtec 10 mg Oral Tablet - take 1 tablet by ORAL route once daily As needed; 20 tablet. - Medication Reconciliation Form, Thank You Letter, Antibiotic Education, Prescription Opioid Use form. - Follow up: Lorraine Donnelly MD; When: 2 - 3 days; Reason: Recheck today's complaints, Continuance of care, Re-evaluation by your physician. Follow up: Emergency Department; When: As needed; Reason: Worsening of condition. Signatures: Jai New RN RN sg Gayatri Wong, [address] [facility] [facility]-[place] Wolfgang Barrera MD MD tw4 Salo Barba RN RN Cam Radford RN RN rr5 Corrections: (The following items were deleted from the chart) 06:36 06:25 10/11/2019 06:25 Discharged to Home. Impression: Insect bite (nonvenomous) of rv front wall of thorax; Insect bite (nonvenomous) of hip. Condition is Stable. Forms are Medication Reconciliation Form, Thank You Letter, Antibiotic Education, Prescription Opioid Use. Follow up: Lorraine Donnelly; When: 2 - 3 days; Reason: Recheck today's complaints, Continuance of care, Re-evaluation by your physician. Follow up: Emergency Department; When: As needed; Reason: Worsening of condition. snw
--- NOTE | 2019-10-11 06:25 | ER ---
Nurse's Notes [facility] Name: Amber Acosta Age: 73 yrs Sex: Female : 1945 Arrival Date: 10/11/2019 Time: 06:16 Bed 6 Private MD: Lorraine Donnelly Diagnosis: Insect bite (nonvenomous) of front wall of thorax;Insect bite (nonvenomous) of hip Presentation: 10/10 06:25 Chief complaint: Patient states: I got bitten by ants yesterday all over my body. now rr5 it itch so much. Coronavirus screen: Ebola Screen: Patient negative for fever greater than or equal to 101.5 degrees Fahrenheit, and additional compatible Ebola Virus Disease symptoms Patient denies exposure to infectious person. Patient denies travel to an Ebola-affected area in the 21 days before illness onset. Initial Sepsis Screen: Does the patient meet any 2 criteria? No. Patient's initial sepsis screen is negative. Does the patient have a suspected source of infection? No. Patient's initial sepsis screen is negative. Risk Assessment: Do you want to hurt yourself or someone else? Patient reports no desire to harm self or others. Onset of symptoms was October 10, 2019. 06:25 Method Of Arrival: Wheelchair rr5 06:25 Acuity: IVETTE 4 rr5 Historical: - Allergies: 06:18 Bees; sg 06:18 Codeine; sg 06:18 hydrocodone bitartrate; sg 06:18 Iodinated Contrast Media - IV Dye; sg 06:18 Levofloxacin; sg 06:18 METRONIDAZOLE; sg 06:18 PENICILLINS; sg 06:18 SHELLFISH; sg 06:18 sulfamethoxazole; sg 06:18 TRIMETHOPRIM; sg 06:18 Wasps; sg - PMHx: 06:18 Alzheimers; Anxiety; CAD; CVA; Depression; Diabetes - NIDDM; GERD; High Cholesterol; sg Hypertension; kidney cancer; Migraines; - PSHx: 06:18 Hysterectomy; sg - Immunization history:: Adult Immunizations up to date. - Social history:: Smoking status: Patient denies any tobacco usage or history of. Screenin:28 Abuse screen: Denies threats or abuse. Denies injuries from another. Nutritional rr5 screening: No deficits noted. Tuberculosis screening: No symptoms or risk factors identified. Fall Risk None identified. Total Gonzalez Fall Scale indicates No Risk (0-24 pts). Assessment: 06:25 General: Appears in no apparent distress. comfortable, Behavior is calm, cooperative, rr5 appropriate for age. Pain: Denies pain. Neuro: Level of Consciousness is awake, alert, obeys commands, Oriented to person, place, time, situation. Cardiovascular: Capillary refill < 3 seconds Patient's skin is warm and dry. Respiratory: Airway is patent Respiratory effort is even, unlabored, Respiratory pattern is regular, symmetrical. GI: No signs and/or symptoms were reported involving the gastrointestinal system. : No signs and/or symptoms were reported regarding the genitourinary system. EENT: No signs and/or symptoms were reported regarding the EENT system. Derm: Rash noted that is itchy, papular, red, raised, on chest, abdomen, right leg and left leg. Musculoskeletal: Circulation, motion, and sensation intact. Capillary refill < 3 seconds. Vital Signs: 06:25 BP 140 / 93; Pulse 67; Resp 17; Temp 98.2; Pulse Ox 98% ; Weight 50 kg; Pain 0/10; rr5 ED Course: 06:16 Patient arrived in ED. es 06:16 Lorraine Donnelly MD is Private Physician. es 06:17 [facility] snw 06:17 Wolfgang Barrera MD is Attending Physician. snw 06:17 Arm band placed on. sg 06:20 Patient has correct armband on for positive identification. Bed in low position. Call rr5 light in reach. Side rails up X2. 06:20 No provider procedures requiring assistance completed. Patient did not have IV access rr5 during this emergency room visit. 06:24 Lorraine Donnelly MD is Referral Physician. snw 06:25 Cam Olson RN is Primary Nurse. rr5 06:27 Triage completed. rr5 Administered Medications: 06:25 Drug: ZyrTEC - Cetirizine 10 mg Route: PO; rr5 06:36 Follow up: Response: Medication administered at discharge. rv Outcome: 06:25 Discharge ordered by . snw 06:36 Discharged to home ambulatory. rv 06:36 Condition: good 06:36 Discharge instructions given to patient, Instructed on discharge instructions, follow up and referral plans. medication usage, Demonstrated understanding of instructions, follow-up care, medications, Prescriptions given X 1. 06:36 Patient left the ED. rv Signatures: Jai New, RN RN Gayatri Ortiz, SHIP'S OFFICER-C SHIP'S OFFICER-Csnw Brittney Chau Ronaldo RN RN rv Cam Olson RN RN rr5
[2019-10-11] MEDS ORDERED: CETIRIZINE HCL 5 MG TABLET ONE (06:34)
[2019-10-11 06:44] VITALS: BP 140/93; TEMP 98.2; O2SAT 98
--- OUTSIDE RECORDS SUMMARY | 2019-10-11 13:57 | XMS REPORT | Continuity of Care Document ---
:1945 Author Organization [employer] [facility] Care Team Providers Name Role Phone [employer] [facility] Unavailable Un available Problems Problem Status Onset Classification Date Comments Sourc e Date Reported CVA Active 02/18/[address] AMS. 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, systemic N euro, arterial [place] (disorder) [facility] Hyperlipidemia Active Problem 06/29/2019 Misc her (disorder) Neuro Lumbar Active Problem 06/29/2019 [facility] radiculopathy Neuro (disorder) Memory impairment Active Problem 06/29/2019 [place] (finding) Neuro Transient ischemic Active Problem 06/29/2019 [facility] attack (disorder) Ne uro Tremor (finding) Active Problem 06/29/2019 [place] [facility] Medication Details Route Status Patient Ordering Order Source Instructions Provider Date Aspirin 81 MG 81 mg = 1 Active [place] Enteric Coated tab, PO, 020 Neuro Tablet Daily, # 90 tab, 3 Refill(s) donepezil 5 mg = 1 tab, Active [place] oral tablet PO, 020 Neuro Bedtime, # 30 tab, 2 Refill(s), Pharmacy: [id number] Metformin 500 mg, PO, Active [place] 0 [...] # [Aricept] 30 tab, 3 Refill(s), Pharmacy: [facility] [id number] Amlodipine 10 MG 10 mg = 1 [...] 019 Neuro Omeprazole 40 mg, No Longer [facility] Route: PO, Active 014 Medical Drug form: Jose A JEREZ, Daily, Dosing Weight 81.818, kg, Start date: 02/19/14 9:00:00, Duration: 30 day, Stop date: 03/20/14 9:00:00 Losartan Notes: No Longer [facility] (Same as: Active 014 Medical Cozaar) Center Zetia Notes: No Longer [facility] (Same as: [facility] [place] Protonix Notes: No Longer [facility] Tablet Active 014 Medical should not Center be chewed or crushed. (Same as: Protonix) gabapentin 300 MG Notes: [place] Longer [place] Oral Capsule (Same as: Active 014 Medical [Neurontin] Neurontin) Center Simvastatin Notes: Inactive [facility] (Same as: 014 Medical Zocor) Center Restoril Notes: Inactive [facility] (Same As: 014 Medical Restoril) Center Bentyl Notes: Inactive [facility] (Same as: 014 Medical Bentyl) Center Metoclopramide 10 Notes: [place] Oral Tablet (Same as: 014 Medical [Reglan] Reglan) Center Take 30 min before meals Lorazepam Notes: Inactive [facility] (Same as: 014 Medical Ativan) [place] Lunesta 3 mg, Inactive [facility] Route: PO, 014 Medical Drug form: [...] 12.5 12.5 mg = 1 On Hold [facility] mg oral tablet tab, PO, 014 Medical Q4H, Nausea Center & Vomiting, # 60 tab, 0 Refill(s) ezetimibe 10 MG 10 mg = 1 On Hold [place] Oral Tablet tab, PO, 014 Medical [Zetia] Daily, # 30 Center tab, 0 Refill(s) gabapentin 300 MG 300 mg = 1 On Hold [facility] Oral Capsule cap, PO, 014 Medical [Neurontin] TID, # 90 Center cap, 0 Refill(s) clopidogrel Notes: Inactive [facility] (Same As: 014 Medical Plavix) Center Aspirin 325 MG Notes: (Do Inactive [place] Enteric Coated Not Crush) [facility] Medica l Tablet Do not Center crush or chew. Keppra Notes: Inactive [facility] (Same [facility] Medical as:Keppra) [place] tramadol Notes: Not Inactive [facility] hydrochloride 50 to exceed [facility] Medic al MG Oral Tablet 400mg/day. Center (Same As: [facility]) Lorazepam Notes: Inactive [facility] (Same as: [address] [place] [address] Ativan) [place] Loratadine Notes: 1 hr Inactive [facility] before [facility] Medical meals Center (Same as: Claritin) Ondansetron 4 mg, Inactive [facility] Route: IVP, [facility] Medical Drug form: [place] INJ, ONCE, Dosing Weight 81.818, kg, Priority: STAT, Start date: 02/17/14 23:19:00, Stop date: 02/17/14 23:19:00 Benadryl 25 mg, Inactive [facility] Route: IVP, 014 Medical ONCE, Center Dosing Weight 81.818, kg, PRN Itching, Start date: 02/17/14 22:50:00 Meclizine 0 Refill(s) No Longer [address] Losartan 0 Refill(s) No Longer [address] Promethazine 0 Refill(s) [place]er [place] Active [address] [place] [address] Zetia 0 Refill(s) No Longer [address] Rogaine 0 Refill(s) No Longer [address] Lunesta 0 Refill(s) No Longer [address] Lipitor Notes: Same No Longer [facility] as Lipitor Active [address] [place] [address] Saline Flush 0.9% Notes: No Longer [place] (Same as: Active [address] [place] [address] Posiflush) Famotidine Notes: No Longer [facility] (Same as: Active [address] [place] [address] Pepcid) [place] Tylenol 650 mg, Inactive [facility] Route: PO, [facility] Medical Drug form: [place] TAB, ONCE, Dosing Weight 81.818, kg, Priority: [...] BID, Center Anxiety Zofran 4 mg, Inactive [facility] Route: IVP, 014 Medical Drug form: [place] INJ, ONCE, Dosing Weight 81.818, kg, Priority: STAT, Start date: 02/17/14 16:53:00, Stop date: 02/17/14 16:53:00 heparin, porcine Notes: [place] Longer [place] porcine Active 014 [facility] heparin Center Saline Flush 0.9% 10 ml, Inactive [place] Route: IVP, 014 Medical Drug Form: Center INJ, Dosing Weight 81.818, kg, PRN, PRN Line Flush, Start date: 02/17/14 15:43:00, Duration: 30 day, Stop date: 03/19/14 14:42:00 Labetalol 105mmHg No Longer [facility] Active 014 [facility] Center Acetaminophen Notes: Do No Longer [place] not exceed Active [facility] Medical 4 gm/day. Center (Same as: Tylenol) Sodium Chloride 1,000 mL, No Longer [place] 0.154 MEQ/ML Rate: 100 Active [facility] Medical Injectable ml/hr, Center Solution Infuse over: 10 hr, Route: IV, Dosing Weight 81.818 kg, Total Volume: 1,000, Start date: 02/17/14 15:43:00, Duration: 30 day, Stop date: 03/19/14 15:42:00 Plavix Notes: ( Inactive [facility] Same as: [address] [place] [address] Plavix) [place] aspirin Notes: Take Inactive [facility] with food. [address] [place] [address] Sodium Chloride 1,000 mL, [place]active [place] 0.154 MEQ/ML 1,000 014 Medical Injectable ml/hr, Center Solution Infuse Over: 1 hr, Route: IV, 1,000, Drug form: INJ, ONCE, Priority: STAT, Dosing Weight 81.818 kg, Start date: 02/17/14 15:16:00, Duration: 1 doses or times, Stop date: 02/17/14 15:16:00 iodixanol Special Inactive [facility] Instruction 014 Medical s: Dose = Center 2.2ml/kg, Max dose = 150ml -- "To be infused by Radiology Staff ONLY" iodixanol Special Inactive [facility] Instruction 014 Medical s: Dose = Center [...] No Longer [place] (Same as: Active [address] [place] [address] Posiflush) Allergies, Adverse Reactions, Alerts Substance Category Reaction Severity Reaction Status Date Comments S ource type Reported codeine Assertion Drug Active Mische r allergy Neuro penicillin Assertion Drug Active [place] allergy Neuro Immunizations No Data Provided for This Section Results Order Name Results Value Reference Date Interpretation Comments Mikaela rce Range SPECIAL Hgb A1C 6.6 <=5.6 % 02/18 [facility] CHEMISTRY [facility] LIPIDS CHD Risk 3.80 3.90 - 02/18 [facility] 5.80 [facility] LIPIDS Chol 167 <=199 02/18 [facility] mg/dL [facility] LIPIDS HDL 44 >=61 mg/dL 02/18 [facility] LIPIDS Trig 182 <=149 02/18 [facility] mg/dL [facility] LIPIDS VLDL 36 02/18 [facility] LIPIDS LDL 87 <=99 mg/dL 02/18 [facility] (Calculated) [facility] ANEMIA % Satur Fe 34 12 - 57 02/18 [facility] ANEMIA TIBC 342 228 - 428 02/18 [facility] STUDY [facility] ANEMIA UIBC 227 110 - 370 02/18 [facility] STUDY [facility] ANEMIA Iron 115 30 - 160 02/18 [facility] ANEMIA Ferritin Lvl 97 5 - 204 02/18 [facility] CHEM PANEL Lactic Acid 1.9 0.5 - 2.2 02/17 [place] L[place] /2013 [facility] URINE AND UA Mucus None Seen None Seen 02/17 [facility] STOOL (02/17/14 2:18 PM) /2013 [facility] Center URINE AND UA Sq Epi Few /LPF Few /LPF 02/17 [facility] STOOL [facility] URINE AND UA RBC None Seen 0 - 2 02/17 [facility] STOOL (02/17/14 2:18 PM) /2013 [facility] URINE AND UA Bacteria Occasional None Seen 02/17 [place]OL /HPF /HPF /2013 [facility] URINE AND UA WBC 0-2 /HPF None Seen 02/17 [facility] STOOL /HPF Medical [place] URINE AND UA Spec Grav 1.020 <=1.030 02/17 [facility] STOOL [facility] URINE AND UA Color Yellow Yellow 02/17 [facility] STOOL *NA* /2013 Medical (02/17/14 2:18 PM) Cente r URINE AND UA Turbidity Clear Clear 02/17 [facility] (02/17/14 2:18 PM) [facility] URINE AND UA Leuk Est Negative Negative 02/17 [facility] (02/17/14 2:18 PM) [facility] URINE AND UA Nitrite Negative Negative 02/17 [facility] (02/17/14 2:18 PM) [facility] URINE AND UA 0.2 0.1 - 1.0 02/17 [facility] Urobilinogen [facility] URINE AND UA Blood Negative Negative 02/17 [facility] (02/17/14 2:18 PM) [facility] URINE AND UA Bili Negative Negative 02/17 [facility] *NA* /2013 Medical (02/17/14 2:18 PM) Cente r URINE AND UA Glucose Negative Negative 02/17 [facility] (02/17/14 2:18 PM) [facility] URINE AND UA Ketones Negative Negative 02/17 [facility] *NA* /2013 Medical (02/17/14 2:18 PM) Cente r URINE AND UA Protein Negative Negative 02/17 [facility] (02/17/14 2:18 PM) [facility] URINE AND UA pH 6.5 5.0 - 8.0 02/17 [facility] STOOL [facility] CARDIAC CK MB 3.4 0.5 - 3.6 02/17 [facility] ENZYMES [facility] CARDIAC Troponin-I 0.07 0.00 - 02/17 [facility] ENZYMES 0.40 [facility] CARDIAC Total CK 123 12 - 191 02/17 [facility] ENZYMES [facility] CARDIAC CK MB Index 2.8 0.0 - 2.5 02/17 [facility] ENZYMES [facility] CHEM PANEL [...] PANEL Creatinine 1.4 0.5 - 1.4 02/17 [facility] CHEM PANEL Glucose Lvl 211 70 - 99 02/17 <sup>2</sup>I nterpretive Medical Data: Adult Center reference range values reflect the clinical guidelines
of the [place] [employer]. CHEM PANEL BUN 13 7 [...] 0.5 - 2.2 02/17 <sup>3</sup>R [facility] [place] Lvl esult Medical Comment: Center Critical Result(s) [...] HEMATOLOGY PT 12.7 12.0 - 02/17 14.7 [facility] HEMATOLOGY Platelet 205 133 - 450 02/17 [facility] HEMATOLOGY MCH 29.0 27.0 - 02/17 31.0 [facility] HEMATOLOGY MCHC 33.7 32.0 - 02/17 [place] 36.0 [facility] HEMATOLOGY RDW 13.6 11.5 - 02/17 14.5 [facility] HEMATOLOGY Hct 51.8 36.0 - 02/17 [place] 48.0 /2013 [facility] HEMATOLOGY MCV 86.2 80.0 - 02/17 [place] 98.0 /2013 [facility] HEMATOLOGY Hgb 17.4 12.0 - 02/17 16.0 [facility] HEMATOLOGY RBC 6.01 4.20 - 02/17 [place] 5.40 /2013 [facility] HEMATOLOGY MPV 11.5 7.4 - 10.4 02/17 [facility] HEMATOLOGY WBC 14.1 3.7 - 10.4 02/17 [facility] HEMATOLOGY PTT 21.8 22.9 - 02/17 <sup>5</sup>[place] 35.8 nterpretive Medical Data: Heparin Center Therapeutic Range: 57 - 92 [place] HEMATOLOGY Plt Morph Normal 02/17 [facility] (02/17/14 12:09 PM) [facility] HEMATOLOGY RBC Morph Normal 02/17 [facility] (02/17/14 12:09 PM) [facility] HEMATOLOGY Eosinophils # 0.1 0.0 - [...] HEMATOLOGY Lymphocytes 17.5 20.0 - 02/17 40.0 [facility] HEMATOLOGY Segs 77.0 45.0 - 02/17 [place] 75.0 [facility] HEMATOLOGY Monocytes 4.3 [...] Comments Source Systolic (mm Hg) 102 06/26/2019 [facility] Cit[place]ali ro Diastolic (mm Hg) 59 06/26/2019 [facility] Ne uro Heart Rate 70 06/26/2019 [facility] Neuro Respitory Rate 16 06/26/2019 [facility] Neuro Height 157.48 cm 06/26/2019 [facility] Neuro Weight 58.182 06/26/2019 [facility] Neuro BMI Calculated 23.46 06/26/2019 [facility] Neuro Systolic (mm Hg) 143 01/15/2019 [facility] [place] ro Diastolic (mm Hg) 76 01/15/2019 [facility] Ne uro Heart Rate 66 01/15/2019 [facility] Neuro Respitory Rate 16 01/15/2019 [facility] Neuro Height 157.48 cm 01/15/2019 [facility] Neuro Weight 56.818 01/15/2019 [facility] Neuro BMI Calculated 22.91 01/15/2019 [facility] Weight 55.455 10/29/2018 [facility] Neuro BMI Calculated 22.36 10/29/2018 [facility] Neuro Height 157.48 cm 10/29/2018 [facility] Neuro Systolic (mm Hg) 136 10/29/2018 [facility] Citlali ro Diastolic (mm Hg) 86 10/29/2018 [facility] Respitory Rate 16 10/29/2018 [facility] Neuro Heart Rate 71 10/29/2018 [facility] Neuro Weight 57.273 09/27/2018 [facility] Neuro BMI Calculated 23.86 09/27/2018 [facility] Neuro Height 154.94 cm 09/27/2018 [facility] Neuro Respitory Rate 16 09/27/2018 [facility] Neuro Systolic (mm Hg) 153 09/27/2018 [facility] [place] Diastolic (mm Hg) 85 09/27/2018 [facility] Ne uro Heart Rate 60 09/27/2018 [facility] Neuro Systolic (mm Hg) 195 02/18/2014 [facility] dical Center Diastolic (mm Hg) 92 02/18/2014 [facility] edical Center Respitory Rate 18 02/18/2014 [facility] [place] [facility] Systolic (mm Hg) 159 02/18/2014 [facility] dical Center Diastolic (mm Hg) 91 [facility] 27 02/18/2014 [facility] [place] [facility] Systolic (mm Hg) 144 02/18/2014 [facility] dical Center Diastolic (mm Hg) 77 02/18/2014 [facility] Resp[facility] Rate 27 02/18/2014 [facility] Temperature Oral (F) 99.5 F 02/18/2014 [facility] Height 172.72 cm 02/17/2014 [facility] BMI Calculated 27.43 02/17/2014 [facility] Weight 81.818 02/17/2014 [facility] [place] Heart Rate 120 02/17/[facility] [place] En[facility]ters Location Location Encounter Encounter Reason Attending ADM DC Stat us Source Details Type Number For Provider Date Date Visit [facility] [id number] [place] 02/17 02/19 Rachel Koenigales /2013 [facility] MNA Outpatient [id number] Oscar 09/27 09/28 [facility] Neurology Kre /2018 [facility] [place] Outpatient [id number] Oscar 10/29 Active [facility] [place] MNA Outpatient [id number] Oscar 10/29 10/30 [facility] Neurology Kre [facility] [place] Outpatient [id number] Oscar 12/10 Active [facility] [place] MNA Ambulatory [id number] Oscar 12/10 12/10 [facility] Neurology Pre-Reg [place] [facility] [place] Outpatient [id number] Oscar 01/15 Active [facility] [place] MNA Outpatient [id number] Oscar 01/15 01/16 [facility] Neurology [place] [facility] [place] Outpatient [id number] Oscar 01/29 Active [facility] [place] MNA Ambulatory [id number] Oscar 01/29 01/29 [facility] Neurology Pre-Reg [place] [facility] [place] Outpatient [id number] Oscar 02/04 Active [facility] [place] MNA Ambulatory [id number] Oscar 02/04 02/04 [facility] Neurology Pre-Reg [place] [facility] [place] MNA Outside [id number] 03/18 03/20 [facility] Neurology [facility] /2018 [facility] [place] Records Outpatient [id number] Oscar 06/25 [facility] [place] MNA Outpatient [id number] Oscar 06/25 06/26 [facility] Neurology Kre [facility] [place] Outpatient [id number] Oscar 11/06 [facility] [place] Procedures Procedure Code Date Perfomer Comments Source Back fusion [id number] [facility] Neuro,[facility] Assessment and Plan Assessment and Plan Date Source Extracted from:Title: Stroke Fellow H/P 02/19/2014 [facility] Author: Robert Martinez MD Date: 02/17/14 [...] left side. 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 She is otherwise fully independent [...] son in his 40s, hypertension, father of MT, mother of lung cancer. SOCIAL HISTORY: The [...] and vibration throughout. Coordination: no dysmetria on [id number]. Reflexes: R Biceps 2+, Triceps 2+, Brach ioradialis 2+, Patella 2+, Ankle 2+. L Biceps 2+, Triceps 2+, Brachioradialis 2+, Patella 2+, Ankle 2+. Toes downgoing bilaterally. Gait: not tested. NIH Stroke Scale (NIHSS) 1a. Level of Consciousness; 0-alert 1-drowsy 2-stupor 3-com atose 0 1b. LOC Questions month and age; 0-both 1-one 2-neither 1 (said she was 62) 1c. 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 Best Gaze; 0-nl 1-partial 2-forced gaze 0 3. Visual Quesada; 0-No visual loss. 1-P artial hemianopia 2-Complete 3-Bilateral ㌑0 4. Facial Palsy; 0-none 1-minor 2-partial 3-complete 0 5. Motor - R arm; 0-No drift 1-Drift 2- Some antigravity 3-No antigravity 4-No movement 𕜕 0 6. Motor - R leg; 0-No drift 1-Drift 2- Some antigravity 3-No antigravity 4-No movement 셧 0 7. Motor - L arm; 0-No drift 1-Drift 2- Some antigravity 3-No antigravity 4-No movement 뉟 0 8. Motor - L leg; 0-No drift 1-Drift 2- Some antigravity 3-No antigravity 4-No movement 줻 0 9. Limb Ataxia; 0 absent 1 - 1limb 2 - 2 limbs 0 10. Sensory; 0-nl 1-partial loss 2-dense loss 0 11. Best Language; 0-nl 1-mild/mod 2-severe 3-mute 0 12. Dysarthria; 0-nl 1-mild/mod 2-severe x-untestable 0 13. 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 - Laterally projecting 3 [...] symptomatic [facility]. DIFFERENTIAL DIAGNOSIS TIA vs. [...] Treat fevers and blood sugars aggressively. - PT/OT/SAMPLE EXAMINER consults - rehab assessments have been ordered. [...] AStormy Martinez MD Vascular Neurology fellow MSO# [id number] Pager# [phone] STROKE STAFF I have personally evaluated the [...] t evident in the left MCA, bilateral electromyographic technician and basilar artery. Laterally projecting 3 mm [...] cerebral hypoperfusion 401.9, HTN, malignant 288.6, leukocytosis [id number] Plan of Care No Data Provided for This Section Social History Social History Date Source Social History TypeResponse 02/18/2014 [facility] Substance Abuse Use: None Sexual [...]
--- OUTSIDE RECORDS SUMMARY | 2019-10-11 13:59 | XMS REPORT | Continuity of Care Document ---
:1945 [facility] t Address [address] [place] [address] Care Team Providers Name Role Phone Nael Ceballos Attending Clinician Radha Betancourt Attending Clinician Radha Betancourt Admitting Clinician Problems Condition Condition Condition Status Onset Resolution Last Treating Co mments Source Name Details Category Date Date Treatment Clinician Date CVA Diagnosis Active 2013-042014-07-23 Mem oria 0-28 11:07:00 l CVA 00:00: [place] 00 Active 02/17/2014 [facility] AMS. CVA Diagnosis Active 2013-042014-03-03 M emoria 0-28 15:36:00 l AMS. CVA 00:00: [place] n 00 Active 02/17/2014 [facility] Hyperlipem Hyperlipem Problem Active [facility] Gastro-eso Gastro-eso Problem Active [facility] phageal phageal [facility] reflux reflux [facility] Type II Type II Problem Active [facility] diabetes diabetes [facility] mellitus mellitus [facility] a with with l nephropath nephropath Ou tpati y y ent Clinics Chronic Chronic Problem Active [facility] kidney kidney [facility] - disease, disease, Memori a unspecifie unspecifie l d CKD d CKD Outpati stage stage ent Clinics Cat Cat Problem Active [facility] scratch scratch [facility] Benign Benign Problem Active [facility] essential essential [facility] - HTN HTN [facility] Vitamin D Vitamin D Problem Active [facility] deficiency deficiency [place] [facility] Depression Depression Problem Active [facility] with with [facility] anxiety anxiety [facility] Abdominal Abdominal Problem Active [facility] pain, pain, [facility] - unspecifie unspecifie Me moria d d l abdominal abdominal Outp ati location location ent Clinics Diverticul Diverticul Problem Active [facility] itis of itis of [facility] - large large Memoria intestine intestine l without without Outpati perforatio perforatio en t n or n or Clinics abscess abscess without without bleeding bleeding Memory Memory Problem Active [facility] loss loss [facility] Low back Low back Problem Active [facility] Right leg Right leg Problem Active [facility] pain pain [facility] 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 accident accident l (CVA) (CVA) Outpati without without ent late late Clinics effect effect Forgetfuln Forgetfuln Problem Active [facility] ess ess [facility] Other Other Problem Active [facility] chronic chronic [facility] pain pain [facility] Diverticul Diverticul Problem Active [facility] itis itis [facility] Pain in Pain in Problem Active [facility] left left [facility] shoulder shoulder [facility] Right hip Right hip Problem Active [facility] pain pain [facility] Claudicati Claudicati Problem Active [facility] on in on in [facility] peripheral peripheral Me moria vascular vascular l disease disease [facility] Allergic Allergic Problem Active [facility] rhinitis rhinitis [facility] IBS IBS Problem Active [facility] (irritable (irritable [place] - colon colon Memoria syndrome) syndrome) l [facility] Grief Grief Problem Active [facility] reaction reaction [facility] Left hand Left hand Problem Active [facility] pain pain [facility] Swelling Swelling Problem Active [facility] of left of left [facility] hand hand [facility] Hypokalemi Hypokalemi Problem Active [facility] Skin Skin Problem Active [facility] erythema erythema [facility] Abnormal Abnormal Problem Active [facility] renal renal [facility] function function [facility] test test l [facility] Elevated Elevated Problem Active [facility] TSH TSH [facility] Cerebrovas Problem Resolve 2019-06-29 Memoria cular d 01:36:48 l accident [place] (disorder) Cerebrovas cular accident (disorder) Resolved Problem 06/29/2019 [facility] Diverticul Problem Resolve 2019-06-29 Memoria itis d 01:36:48 l (disorder) [place] n Diverticul itis (disorder) Resolved Problem 06/29/2019 [facility] High Problem Resolve 2019-06-29 Blayne monty density d 01:36:48 l lipoprotei High [place] n n density (substance lipoprotei ) n (substance ) Resolved Problem 06/29/2019 [facility] Hypertensi Problem Resolve 2019-06-29 Memoria ve d 01:36:48 l disorder, [place] systemic Hypertensi arterial ve (disorder) disorder, systemic arterial (disorder) Resolved Problem 06/29/2019 [facility] Dementia Problem Active 2019-06-29 Mem oria (disorder) 01:36:48 l Dementia [place] n (disorder) Active Problem 06/29/2019 [facility] Depressive Problem Active 2019-06-29 M emoria disorder 01:36:48 l (disorder) [place] n Depressive disorder (disorder) Active Problem 06/29/2019 [facility] Diabetes Problem Active 2019-06-29 Mem oria mellitus 01:36:48 l type 2 Diabetes [place] n (disorder) mellitus type 2 (disorder) Active Problem 06/29/2019 [facility] Hyperlipid Problem Active 2019-06-29 M emoria emia 01:36:48 l (disorder) [place] Hyperlipid emia (disorder) [facility] Lumbar Problem Active 2019-06-29 Memor ia radiculopa 01:36:48 l thy Lumbar [place] (disorder) radiculopa thy (disorder) Active Problem 06/29/2019 [facility] Memory Problem Active 2019-06-29 Memor ia impairment 01:36:48 l (finding) Memory Juju nn impairment (finding) Active Problem 06/29/2019 [facility] Transient Problem Active 2019-06-29 Me moria ischemic 01:36:48 l attack [place] (disorder) Transient ischemic attack (disorder) Active Problem 06/29/2019 [facility] Tremor Problem Active 2019-06-29 Memor ia (finding) 01:36:48 l Tremor [place] (finding) Active Problem 06/29/2019 [facility] ALTERED Diagnosis Active 2014-03-03 Me moria MENTAL 15:36:00 l STATUS ALTERED [place] MENTAL STATUS Active [facility] Allergies, Adverse Reactions, Alerts Allergy Allergy Status Severity Reaction(s) Onset Inactive Treating Comm ents Source Name Type Date Date Clinician codeine Adverse Active Info Not [facility] Reaction Available [facility] PCN Adverse Active Info Not [facility] Reaction Available [facility] bee Adverse Active Info Not [facility] sting Reaction Available [facility] codeine codeine Active [facility] penicill penicill Active Memori a in in l [place] Social History Social Habit Start Date Stop Date Quantity Comments Source Social History 2014-02-18 2014-02-18 [facility] gurdeep 06:59:10 06:59:10 Medications Ordered Filled Start Stop Current Ordering Indication Dosage Frequency Signature Comments Components Source Medication Medication Date Date Medication? Clinician (SIG) Name Name Aspirin 81 Yes 81 mg = 1 Me moria MG Enteric 3-05 tab, PO, l Coated 22:38: Daily, # [place] Tablet 00 90 tab, 3 Refill(s) donepezil 5 Yes = 1 tab, Me moria mg oral 3-05 PO, l tablet 22:09: Bedtime, # Juju nn 00 30 tab, 2 Refill(s), Pharmacy: [id number] Keflex Keflex 2020- No [place] [address] [facility] - 00:00: 00:00 Memoria 00 :00 l Outpati ent Clinics Diflucan Diflucan 2020- No [place] as [facility] directed [facility] - 00:00: 00:00 Memoria 00 :00 l [facility] Mupirocin Mupirocin 2020- No [place] [address] 05-14 [place] applicatio Eboni es - 00:00: 00:00 n to Memoria 00 :00 affected l area Outpati ent Clinics Metformin Yes 500 mg, Memor ia 9-25 PO, 0 l 16:58: Refill(s) Effexor 2019-0 Yes 75 mg, PO, Blayne monty 9-25 0 l 16:58: Refill(s) atorvastati 2018-0 Yes 50 mg, PO, Memoria n 9-25 Daily, 0 l 16:58: Refill(s) pantoprazol 2019-0 Yes 40 mg = 2 M emoria e 20 mg 9-25 tab, PO, l oral 16:58: Daily, # [place] enteric 00 60 tab, 0 coated Refill(s) tablet eszopiclone 2019- Yes 3 mg = 1 Me moria 3 mg oral 9-25 tab, PO, l tablet 16:58: Bedtime, PRN for insomnia, 0 Refill(s) Donepezil 2018- Yes 5 mg = 1 Blayne monty hydrochlori 7-09 tab, PO, l de 5 MG 17:24: Bedtime, # Huan polk Oral Tablet 00 30 tab, 3 [Aricept] Refill(s), Pharmacy: [facility] [id number] Amlodipine 2019- Yes 10 mg = 1 Me moria 10 MG Oral 6-07 tab, PO, l Tablet 20:42: Daily, # [place] [Norvasc] 00 30 tab, 1 Refill(s) gabapentin 2018- Yes 100 mg = 1 M emoria 100 MG Oral 6-07 cap, PO, l Capsule 20:42: BID, 0 Refill(s) Effexor 2019-0 Yes 75 mg, PO, Blayne monty 6-07 Daily, 0 l 20:11: Refill(s) Tramadol 2018-0 Yes 50 mg, PO, Mem oria 6-07 Q4-6H, PRN l 20:11: Pain, # 20 00 tab, 0 Refill(s) Lorazepam 2018-0 Yes 0 Memoria 6-07 Refill(s) l 20:11: Omeprazole 2013- No 40 mg, Memor ia 0-30 Route: PO, l 14:00: Drug form: DRC, Daily, Dosing Weight 81.818, kg, Start date: 02/19/14 9:00:00, Duration: 30 day, Stop date: 03/20/14 9:00:00 Losartan 2013-04 No Notes: Memoria 0-30 (Same as: l 14:00: Cozaar) Zetia 2013-04 No Notes: Memoria 0-30 (Same as: l 14:00: Zetia) Protonix 2013-04 No Notes: Memoria 0-30 Tablet l 12:30: should not be chewed or crushed. (Same as: Protonix) gabapentin 2013-04 No Notes: Memor ia 300 MG Oral 0-30 (Same as: l Capsule 05:00: Neurontin) [Neurontin] Simvastatin 2013-04 No Notes: Blayne monty 0-30 (Same as: l 02:00: Zocor) Restoril 2013-04 No Notes: Memoria 0-29 (Same As: l 23:21: Restoril) Bentyl 2013-04 No Notes: Memoria 0-29 (Same as: l 22:55: Bentyl) Metoclopram 2013-04 No Notes: Blayne monty jimenez 10 MG 0-29 (Same as: l Oral Tablet 22:54: Reglan) Her cm [Reglan] 00 Take 30 min before meals Lorazepam 2013-04 No Notes: Memori a 0-29 (Same as: l 22:53: Ativan) Lunesta 2013-04 No 3 mg, Memoria 0-29 Route: PO, l 22:53: Drug form: TAB, Bedtime, Dosing Weight 81.818, kg, PRN as needed for insomnia, Start date: 02/18/14 17:53:00, Stop date: 03/20/14 17:52:00 meclizine 2013-04 Yes 25 mg = 1 Mem oria 25 mg oral 0-29 tab, PO, l tablet 19:47: TID, for dizziness, # 60 tab, 0 Refill(s) losartan 50 2013-04 Yes 50 mg = 1 M emoria mg oral 0-29 tab, PO, l tablet 19:47: Daily, # [place] 00 30 tab, 0 Refill(s) omeprazole 2013-04 Yes 40 mg = 1 Me moria 40 mg oral 0-29 cap, PO, l delayed 19:47: Daily, # [place] n release 00 30 cap, 0 capsule Refill(s) promethazin 2013-04 Yes 12.5 mg = M emoria e 12.5 mg 0-29 1 tab, PO, l oral tablet 19:47: Q4H, [place] n 00 Nausea & Vomiting, # 60 tab, 0 Refill(s) ezetimibe 2013-04 Yes 10 mg = 1 Mem oria 10 MG Oral 0-29 tab, PO, l Tablet 19:47: Daily, # [place] [Zetia] 00 30 tab, 0 Refill(s) gabapentin 2013-04 Yes 300 mg = 1 M emoria 300 MG Oral 0-29 cap, PO, l Capsule 19:47: TID, # 90 Juju nn [Neurontin] 00 cap, 0 Refill(s) clopidogrel 2013-04 No Notes: Blayne monty 0-29 (Same As: l 14:00: Plavix) [place] Aspirin 325 2013-04 No Notes: (Do Memoria MG Enteric 0-29 Not Crush) l Coated 14:00: Do not [place] Tablet 00 crush or chew. Keppra 2013-04 No Notes: Memoria 0-29 (Same l 09:30: as:Keppra) [place] tramadol 2013-04 No Notes: Not Mem oria hydrochlori 0-29 to exceed l de 50 MG 09:12: 400mg/day. Her cm Oral Tablet 00 (Same As: Ultram) Lorazepam 2013-04 No Notes: Memori a 0-29 (Same as: l 06:30: Ativan) [place] 00 Loratadine 2013-04 No Notes: 1 Mem oria 0-29 hr before l 05:28: meals [place] 00 (Same as: Claritin) Ondansetron 2013-04 No 4 mg, Memor ia 0-29 Route: l 04:19: IVP, Drug form: INJ, ONCE, Dosing Weight 81.818, kg, Priority: STAT, Start date: 02/17/14 23:19:00, Stop date: 02/17/14 23:19:00 Benadryl 2013-04 No 25 mg, Memoria 0-29 Route: l 03:50: IVP, ONCE, Dosing Weight 81.818, kg, PRN Itching, Start date: 02/17/14 22:50:00 Meclizine 2013-04 No 0 Memoria 0-29 Refill(s) l 03:43: [place] 00 Losartan 2013-04 No 0 Memoria 0-29 Refill(s) l 03:43: [place] 00 Promethazin 2013-04 No 0 Memori a e 0-29 Refill(s) l 03:43: [place] 00 Zetia 2013-04 No 0 Memoria 0-29 Refill(s) l 03:43: [place] 00 Rogaine 2013-04 No 0 Memoria 0-29 Refill(s) l 03:42: [place] 00 Lunesta 2013-04 No 0 Memoria 0-29 Refill(s) l 03:42: Lipitor 2013-04 No Notes: Memoria 0-29 Same as l 02:00: Lipitor Saline 2013-04 No Notes: Memoria Flush 0.9% 0-29 (Same as: l 02:00: BD Posiflush) Famotidine 2013-04 No Notes: Memor ia 0-29 (Same as: l 02:00: Pepcid) Tylenol 2013-04 No 650 mg, Memoria 0-28 Route: PO, l 23:43: Drug form: [place] 00 TAB, ONCE, Dosing Weight 81.818, kg, Priority: STAT, Start date: 02/17/14 18:43:00, Stop date: 02/17/14 18:43:00 Dicyclomine 2013-04 Yes 20 mg = 1 M emoria Hydrochlori 0-28 tab, PO, l de 20 MG 22:39: Q6H, as [place] n Oral Tablet 00 needed for [Bentyl] irritable bowel Eszopiclone 2013-04 Yes 3 mg = 1 Me moria 3 MG Oral 0-28 tab, PO, l Tablet 22:38: Bedtime, [place] [Lunesta] 00 for insomnia clarithromy 2013-04 No 500 mg = 1 Memoria marshall 500 mg 0-28 tab, PO, l oral tablet 22:36: BID, 0 Herm felicitas 00 Refill(s) Metoclopram 2013-04 Yes 10 mg = 1 M emoria jimenez 10 MG 0-28 tab, PO, l Oral Tablet 22:35: QID-Before [place] [Reglan] 00 Meals, as needed for gastropare sis, 0 Refill(s) ciprofloxac 2013-04 No 500 mg = 1 Memoria in 500 mg 0-28 tab, PO, l oral tablet 22:35: BID [place] n 00 simvastatin 2013-04 Yes 40 mg = 1 M emoria 40 mg oral 0-28 tab, PO, l tablet 22:33: Daily, # [place] 00 30 tab, 0 Refill(s) montelukast 2013-04 Yes 10 mg = 1 M emoria 10 MG Oral 0-28 tab, PO, l Tablet 22:33: QAM, as [place] [Singulair] 00 needed for allergies (in the Spring only), # 30 tab, 0 Refill(s) metoprolol 2013-04 Yes 50 mg = 1 Me moria tartrate 50 0-28 tab, PO, l mg oral 22:33: BID, # 180 Herm felicitas tablet 00 tab, 0 Refill(s) LORazepam 1 2013-04 Yes 1 mg = 1 Me moria mg oral 0-28 tab, PO, l tablet 22:31: BID, [place] 00 Anxiety Zofran 2013-04 No 4 mg, Memoria 0-28 Route: l 21:53: IVP, Drug form: INJ, ONCE, Dosing Weight 81.818, kg, Priority: STAT, Start date: 02/17/14 16:53:00, Stop date: 02/17/14 16:53:00 heparin, 2013-04 No Notes: Memoria porcine 0-28 porcine l 21:00: heparin Saline 2013-04 No 10 ml, Memoria Flush 0.9% 0 Route: l 20:43: IVP, Drug Form: INJ, Dosing Weight 81.818, kg, PRN, PRN Line Flush, Start date: 02/17/14 15:43:00, Duration: 30 day, Stop date: 03/19/14 14:42:00 Labetalol 2013-04 No 105mmHg Blayne monty 0-28 l 20:43: [place] Acetaminoph 2013-04 No Notes: Do M emoria en 0-28 not exceed l 20:43: 4 gm/day. [place] (Same as: Tylenol) Sodium 2013-04 No 1,000 mL, Memori a Chloride 0-28 Rate: 100 l 0.154 20:43: ml/hr, [place] MEQ/ML 00 Infuse Injectable over: 10 Solution hr, Route: IV, Dosing Weight 81.818 kg, Total Volume: 1,000, Start date: 02/17/14 15:43:00, Duration: 30 day, Stop date: 03/19/14 15:42:00 Plavix 2013-04 No Notes: ( Memoria 0-28 Same as: l 20:42: Plavix) [place] 00 aspirin 2013-04 No Notes: Memoria 0-28 Take with l 20:42: food. [place] 00 Sodium 2013-04 No 1,000 mL, Memori a Chloride 0-28 1,000 l 0.154 20:16: ml/hr, [place] MEQ/ML 00 Infuse Injectable Over: 1 Solution hr, Route: IV, 1,000, Drug form: INJ, ONCE, Priority: STAT, Dosing Weight 81.818 kg, Start date: 02/17/14 15:16:00, Duration: 1 doses or times, Stop date: 02/17/14 15:16:00 iodixanol 2013-04 No Special Memor ia 0-28 Instructio l 18:55: ns: Dose = [place] 00 2.2ml/kg, Max dose = 150ml -- "To be infused by Radiology Staff ONLY" iodixanol 2013-04 No Special Memor ia 0-28 Instructio l 18:51: ns: Dose = [place] 00 2.2ml/kg, Max dose = 150ml -- "To be infused by Radiology Staff ONLY" Sodium 2013-04 No 1,000 mL, Memori a Chloride 0-28 1,000 l 0.154 17:51: ml/hr, [place] MEQ/ML 00 Infuse Injectable Over: 1 Solution hr, Route: IV, 1,000, Drug form: INJ, ONCE, Priority: STAT, Dosing Weight 81.818 kg, Start date: 02/17/14 12:51:00, Duration: 1 doses or times, Stop date: 02/17/14 12:51:00 Saline 2013-04 No Notes: Memoria Flush 0.9% 0-28 (Same as: l 16:53: BD [place] 00 Posiflush) Ativan Ativan Yes [place] [address] [facility] Lunesta Lunesta Yes [place] [address] [facility] Millender immediatel [facility] - y before Memoria bedtime l Outpati ent Clinics Donepezil Donepezil Yes [place] [address] [facility] HCl HCl [place] at bedtime [facility] EpiPen EpiPen Yes [place] not [facility] 2-Ney 2-Ney [facility] defined [facility] Gabapentin Gabapentin Yes [place] [address] [facility] Bactrim DS Bactrim DS Yes [place] [address] [facility] Effexor XR Effexor XR Yes [place] [address] [facility] Metoprolol Metoprolol Yes [place] [address] [facility] Tartrate Tartrate [place] [facility] Vitamin D Vitamin D Yes [place] [address] [facility]ics Atorvastati Atorvastati Yes [place] [address] [facility] n Calcium n Calcium [place] in evening [facility] Metformin Metformin Yes [place] [address] [facility] HCl HCl [facility] Amlodipine Amlodipine Yes [place] [address] [facility] Besylate Besylate [place] [facility] Cardura Cardura Yes [place] [address] [facility] in evening [facility] Simvastatin Simvastatin Yes [place] [address] [facility] in the [facility] - evening Memoria l [facility] ent Clin[facility] Bentyl Bentyl Yes Lorarine [address] [facility] Protonix Protonix Yes [place] [address] [facility] Protonix Protonix Yes [place] [address] [facility] Lotrisone Lotrisone Yes [place] [address] [facility] applicatio [facility] - n to Memoria affected l area Outpati ent Clinics Bactroban Bactroban Yes [place] [address] [facility] applicatio [facility] - n to Memoria affected l area [facility] Immunizations Ordered Filled Immunization Date Status Comments Sourc e Immunization Name Name TDAP > 7 TDAP > 7 2019-05-[address] [facility]-Adacel Years-Adacel 00:00:00 [facility] Vital Signs Vital Name Observation Time Observation Value Comments Source Systolic (mm Hg) 2019-06-26 21:51:00 Blayne rial [place] Diastolic (mm Hg) 2019-06-26 21:51:00 Mem orial [place] Heart Rate 2019-06-26 21:51:00 [facility] [place] Respitory Rate 2019-06-26 21:51:00 Memori al [place] Height 2019-06-26 21:51:00 157.48 cm [facility] [place] Weight 2019-06-26 21:51:00 [facility] [place] BMI Calculated 2019-06-26 21:51:00 Memori al [place] Systolic (mm Hg) 2019-01-15 16:55:00 Blayne rial [place] Diastolic (mm Hg) 2019-01-15 16:55:00 Mem orial [place] Heart Rate 2019-01-15 16:55:00 [facility] [place] Respitory Rate 2019-01-15 16:55:00 Memori al [place] Height 2019-01-15 16:55:00 157.48 cm [facility] [place] Weight 2019-01-15 16:55:00 [facility] [place] BMI Calculated 2019-01-15 16:55:00 Memori al [place] Weight 2018-10-29 17:07:00 [facility] [place] BMI Calculated 2018-10-29 17:07:00 Memori al [place] Height 2018-10-29 17:07:00 157.48 cm [facility] [place] Systolic (mm Hg) 2018-10-29 17:07:00 Blayne rial [place] Diastolic (mm Hg) 2018-10-29 17:07:00 Mem orial [place] Respitory Rate 2018-10-29 17:07:00 Memori al [place] Heart Rate 2018-10-29 17:07:00 [facility] [place] Weight 2018-09-27 20:03:00 [facility] [place] BMI Calculated 2018-09-27 20:03:00 Memori al [place] Height 2018-09-27 20:03:00 154.94 cm [facility] [place] Respitory Rate 2018-09-27 20:03:00 Memori al [place] Systolic (mm Hg) 2018-09-27 20:03:00 Blayne rial [place] Diastolic (mm Hg) 2018-09-27 20:03:00 Mem orial [place] Heart Rate 2018-09-27 20:03:00 [facility] [place] Systolic (mm Hg) 2014-02-18 23:00:00 Blayne rial [place] Diastolic (mm Hg) 2014-02-18 23:00:00 Mem orial [place] Respitory Rate 2014-02-18 23:00:00 Memori al [place] Systolic (mm Hg) 2014-02-18 22:00:00 Blayne rial [place] Diastolic (mm Hg) 2014-02-18 22:00:00 Mem orial [place] Respitory Rate 2014-02-18 22:00:00 Memori al [place] Systolic (mm Hg) 2014-02-18 21:00:00 Blayne rial [place] Diastolic (mm Hg) 2014-02-18 21:00:00 Mem orial [place] Respitory Rate 2014-02-18 21:00:00 Memori al [place] Temperature Oral (F) 2014-02-18 03:12:00 99.5 F [facility] [place] Height 2014-02-17 16:42:00 172.72 cm [facility] [place] BMI Calculated 2014-02-17 16:42:00 Memori al [place] Weight 2014-02-17 16:42:00 [facility] [place] Heart Rate 2014-02-17 16:42:00 [facility] [place] Procedures Procedure Date / Time Performed Performing Clinician Sourc e Back fusion [facility] [place] Encounters Start End Encounter Admission Attending Care Care Encounter Source Date/Time Date/Time Type Type Clinicians Facility Department ID 2019-06-26 2019-06-26 Outpatient RIVERA Ceballos [facility] [id number] 15:00:00 23:59:59 Oscar Nayak 2019-06-03 2019-06-03 Outpatient Jean Claude Rashid [id number] [facility] 03:07:00 03:07:00 [facility] Medicine Medicine Outpati ent Clinics 2019-05-30 2019-05-30 Outpatient Jean Claude Rashid [id number] [address] 15:00:00 15:00:00 [facility] Medicine Outpati ent Clinics 2019-05-19 2019-05-19 [facility] [id number] [address] 19:21:00 19:21:00 [facility] Medicine Outpati ent Clinics 2019-05-14 2019-05-14 [facility] [id number] 00:12:00 00:12:00 [facility] Medicine Outpati ent Clinics 2019-05-13 2019-05-13 [facility] [id number] [facility] [address] 23:58:00 23:58:00 [facility] Medicine Outpati ent Clinics 2019-05-13 2019-05-13 [facility] [id number] 13:45:00 13:45:00 [facility] Medicine Outpati ent Clinics 2019-03-18 2019-03-19 Outpatient MHMISCHER MHMISCHER [id number] 12:48:37 23:59:59 2019-02-04 2019-02-04 Outpatient Tucker, MHMISCHER MHMISCHER [id number] 13:00:00 13:00:00 Oscar 05 [facility] 2019-01-29 2019-01-29 Outpatient Tucker, MHMISCHER MHMISCHER [id number] 14:15:00 14:15:00 Oscar 04 [facility] 2019-01-15 2019-01-15 Outpatient Tucker, MHMISCHER MHMISCHER [id number] 11:30:00 23:59:59 Oscar 03 [facility] 2018-12-10 2018-12-10 Outpatient Tucker, MHMISCHER MHMISCHER [id number] 11:15:00 11:15:00 Oscar 02 [facility] 2018-10-29 2018-10-29 Outpatient Tucker, MHMISCHER MHMISCHER [id number] 11:45:00 23:59:59 Oscar Nael 2018-09-27 2018-09-27 Outpatient Tucker MHMISCHER MHMISCHER [id number] 14:45:00 23:59:59 Oscar 00 Nael 2014-02-17 2014-02-18 Outpatient HETAL Betancourt [facility] [id number] 11:41:00 21:00:00 Susannah Garcia Results Test Description Test Time Test Comments Results Result Sourc e Comments SPECIAL CHEMISTRY 2014-02-18 6.6 Memoria l 20:27:20 [place] LIPIDS 2014-02-18 3.80 Memorial 17:20:44 [place] LIPIDS 2014-02-18 167 [facility] 17:20:44 [place] LIPIDS 2014-02-18 44 Memorial 17:20:44 [place] LIPIDS 2014-02-18 182 Memorial 17:20:44 [place] LIPIDS 2014-02-18 36 [facility] 17:20:44 [place] LIPIDS 2014-02-18 87 Memorial 17:20:44 [place] ANEMIA STUDY 2014-02-18 34 [facility] 10:15:00 [place] ANEMIA STUDY 2014-02-18 342 [facility] 10:15:00 [place] ANEMIA STUDY 2014-02-18 227 [facility] 10:15:00 [place] ANEMIA STUDY 2014-02-18 115 [facility] 10:15:00 [place] ANEMIA STUDY 2014-02-18 97 [facility] 10:15:00 [place] CHEM PANEL 2014-02-17 1.9 [facility] 20:32:24 [place] URINE AND STOOL 2014-02-17 None Seen [facility] 19:18:07 (02/17/14 2:18 [place] PM) URINE AND STOOL 2014-02-17 None Seen [facility] 19:18:07 (02/17/14 2:18 [place] PM) URINE AND STOOL 2014-02-17 19:18:07 Test Item Value Reference Range Interpretation Comme nts UA Spec Grav (test code = UA Spec Grav) 1.020 1 [facility] [id number] 19:18:07Yellow *NA*(02/17/14 2:18 PM) [facility] RIUPP8098-33-26 19:18:07Clear (02/17/14 2:18 PM) [facility] UHWJT9057-08-67 19:18:07Negative (02/17/14 2:18 PM) [facility] DSPIL4280-13-39 19:18:07Negative (02/17/14 2:18 PM) [facility] DTICO3976-89-88 19:18:070.2[facility] XHGJP8920-92-17 19:18:07Negative (02/17/14 2:18 PM)[facility] XRIGU9586-92-41 19:18:07Negative *NA*(02/17/14 2:18 PM)[facility] YRCSC3951-47-08 19:18:07Negative (02/17/14 2:18 PM)[facility] RIAEG7204-53-40 19:18:07Negative *NA*(02/17/14 2:18 PM)[facility] KIMRR9921-76-01 19:18:07Negative (02/17/14 2:18 PM)[facility] [id number] 19:18:07 Test Item Value Reference Range Interpretation Comments UA pH (test code = UA pH) 6.5 1 5.0-8.0 [facility] EDINVAK4129-41-79 17:09:003.4[facility] KGOXITL4082-52-01 17:09:000.07[facility] XODENAC8134-45-97 17:09:00 123[facility] QJTRSXT5584-22-86 17:09:002.8[facility]annCHEM NWMJJ3362-51-90 17:09:0028[facility]annCHE[facility] GZDIM5905-61-73 17:09:001.4 [facility]annCHE[facility] WXVJN7642-21-49 17:09:75153Xmrovsea HermannCHEM PANEL 2014-02-17 17:09:0013[facility]annCHE[facility] USWOR7770-16-42 17:09:009[facility]annCHE[facility] EXWKM5120-90-56 17:09:0016.8[facility]annCHE[facility] UPNPW5928-15-01 17:09:008.8[facility]annCHE[facility] JIFQL2216-89-68 17:09:0023[facility]annCHE[facility] BMPYY8550-63-96 17:09:81389Fdjpxfjs HermannCHEM JCUOK9073-48-73 17:09:18595 [facility]CHE[facility] VMKCE3639-22-82 17:09:003.8[facility]annCHEM PANEL 2014-02-17 17:09:001.0[facility]annCHE[facility] FUDEK7055-49-62 17:09:007.0[facility]annCHE[facility] VINUN6560-12-19 17:09:003.5[facility]annCHEM GKYXA5268-80-60 17:09:0024[facility]annCHEM EDMBG6245-51-79 17:09:0028[facility]annCHE[facility] LBOQN2782-05-07 17:09:000.6[facility]annCHE[facility] HOQIF0533-52-40 17:09:0094 [facility]annCHE[facility] UVWGG9732-88-22 17:09:003.5[facility]annCHEM PANEL 2014-02-17 17:09:004.9[facility] PbohhqiKKVQBSHEUG3302-09-05 17:09:000.95[facility] OnjeblnABINIADKYY0186-97-06 17:09:00 Test Item Value Reference Range Interpretation Comments PT (test code = PT) 12.7 s 12.0-14.7 [facility] FgjwkdtTWQBFYDDVT5643-53-49 17:09:32237Mrmrarsi HermannHEMATOLOGY 2014-02-17 17:09:00 Test Item Value Reference Range Interpretation Comments MCH (test code = MCH) 29.0 pg 27.0-31.0 [facility] OdzrtnmAADRPBIPSB2775-96-07 17:09:0033.7[facility] HermannHEMATOLOGY 2014-02-17 17:09:0013.6[facility] LztkvqqIKMRYEHYCK0970-82-36 17:09:0051.8[facility] TjapbpvLWNVKLHSUP8707-94-49 17:09:0086.2[facility] JkrjmylCOJKUGBKSB3976-89-55 17:09:0017.4[facility] BxverloKABNBAYACY6445-19-00 17:09:006.01[facility] [place] BKMMICATVM3123-34-20 17:09:0011.5[facility] SldkeamRVJCTGAXYY6483-34-00 17:09:00 14.1[facility] LsieznbTZPJNVWWKC9034-65-01 17:09:00 Test Item Value Reference Range Interpretation Comments PTT (test code = PTT) 21.8 s 22.9-35.8 [facility]KeokpuvPQMWLFBWBC1380-29-92 17:09:00Normal (02/17/14 12:09 PM)[facility] UpcpqqgFJJVUKWVGY3965-94-53 17:09:00Normal (02/17/14 12:09 PM)[facility] [place] XUGVEYZOBG0470-62-73 17:09:000.1[facility] NfivzgiSLOFAUSHUA2293-13-13 17:09:000.1 [facility] NsdrcuuLPSVAYMWQH0092-49-43 17:09:0010.8[facility] HermannHEMATOLOGY 2014-02-17 17:09:000.6[facility] TkltihfNIWNHKUHBT3387-14-67 17:09:002.5[facility] BtztetpTSNLUBSPPP2235-21-41 17:09:0017.5[facility] TzkpvpdALSPSSNOGS1741-11-75 17:09:0077.0[facility] BdnrtdvFHGDTGNGKM1565-26-25 17:09:004.3[facility] [place] VXWXAQJTCN7263-42-48 17:09:000.4[facility] PmdmemjUCHCTGVZUT2574-50-93 17:09:000.8 [facility]
== END 2019-10-11 06:36 | disposition home or self-care (01) ==
LOC: ER 06:12
DX: S20.369A Insect bite (nonvenomous) of unspecified front wall of thorax, initial encounter (principal); S70.262A Insect bite (nonvenomous), left hip, initial encounter; S70.261A Insect bite (nonvenomous), right hip, initial encounter; Z91.038 Other insect allergy status; Z88.0 Allergy status to penicillin; Z88.1 Allergy status to other antibiotic agents; Z88.2 Allergy status to sulfonamides; Z88.5 Allergy status to narcotic agent; Z88.8 Allergy status to other drugs, medicaments and biological substances; Z91.013 Allergy to seafood; Z91.048 Other nonmedicinal substance allergy status; I10 Essential (primary) hypertension; G30.9 Alzheimer's disease, unspecified; F02.80 Dementia in other diseases classified elsewhere, unspecified severity, without behavioral disturbance, psychotic disturbance, mood disturbance, and anxiety
CPT/HCPCS: 99283

== ENCOUNTER 2019-10-13 03:50 | Emergency (ER) | payer OTHER ==
--- OUTSIDE RECORDS SUMMARY | 2019-10-13 03:54 | XMS REPORT | Continuity of Care Document ---
:1945 Author Organization [employer] Information [employer]) Care Team Providers Name Role Phone [employer]) Unavailable Un available Problems Problem Status Onset Classification Date Comments Sourc e Date Reported CVA Active 02/18/[address] AMS. CVA Active 02/18/[address] Cerebrovascular Resolved Problem 06/29/2019 [place] Neuro, (disorder) [facility] Dementia Active Problem 06/29/2019 [place] (disorder) Neuro Depressive Active Problem 06/29/2019 [place] disorder Neuro (disorder) Diabetes mellitus Active Problem 06/29/2019 [place] is[place] type 2 (disorder) Ne uro Diverticulitis Resolved Problem 06/29/2019 Misc her (disorder) Neuro,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, systemic N euro, arterial [place] (disorder) [facility] Hyperlipidemia Active Problem 06/29/2019 Misc her (disorder) Neuro Lumbar Active Problem 06/29/2019 [place] radiculopathy Neuro (disorder) Memory impairment Active Problem 06/29/2019 [place] (finding) Neuro Transient ischemic Active Problem 06/29/2019 [place] attack (disorder) Ne uro Tremor (finding) Active Problem 06/29/2019 [place] [facility] Med[facility] Details Route Status Patient Ordering Order Source Instructions Provider Date Aspirin 81 MG 81 mg = 1 Active [place] Enteric Coated tab, PO, 020 Neuro Tablet Daily, # 90 tab, 3 Refill(s) donepezil 5 mg = 1 tab, Active [place] oral tablet PO, 020 Neuro Bedtime, # 30 tab, 2 Refill(s), Pharmacy: [id number] Metformin 500 mg, PO, Active [place]ischer 0 [...] [facility] [id number] Amlodipine 10 MG 10 mg = 1 [...] 019 Neuro Omeprazole 40 mg, No Longer [facility] Route: PO, Active 014 Medical Drug form: Jose A JEREZ, Daily, Dosing Weight 81.818, kg, Start date: 02/19/14 9:00:00, Duration: 30 day, Stop date: 03/20/14 9:00:00 Losartan Notes: No Longer [facility] (Same as: Active 014 Medical Cozaar) Center Zetia Notes: No Longer [facility] (Same as: [facility] [place] Protonix Notes: No Longer [facility] Tablet Active 014 Medical should not Center be chewed or crushed. (Same as: Protonix) gabapentin 300 MG Notes: No Longer [place] Oral Capsule (Same as: Active 014 Medical [Neurontin] Neurontin) Center Simvastatin Notes: Inactive [facility] (Same as: 014 Medical Zocor) Center Restoril Notes: Inactive [facility] (Same As: 014 Medical Restoril) Center Bentyl Notes: Inactive [facility] (Same as: 014 Medical Bentyl) Center Metoclopramide 10 Notes: [place] Oral Tablet (Same as: 014 Medical [Reglan] Reglan) Center Take 30 min before meals Lorazepam Notes: Inactive [facility] (Same as: 014 Medical Ativan) [place] Lunesta 3 mg, Inactive [facility] Route: PO, 014 Medical Drug form: [...] 12.5 12.5 mg = 1 On Hold [facility] mg oral tablet tab, PO, 014 Medical Q4H, Nausea Center & Vomiting, # 60 tab, 0 Refill(s) ezetimibe 10 MG 10 mg = 1 On Hold Jim as Oral Tablet tab, PO, 014 Medical [Zetia] Daily, # 30 Center tab, 0 Refill(s) gabapentin 300 MG 300 mg = 1 On Hold [facility] Oral Capsule cap, PO, 014 Medical [Neurontin] TID, # 90 Center cap, 0 Refill(s) clopidogrel Notes: Inactive [facility] (Same As: 014 Medical Plavix) Center Aspirin 325 MG Notes: (Do Inactive [place] Enteric Coated Not Crush) [facility] Medica l Tablet Do not Center crush or chew. Keppra Notes: Inactive [facility] (Same [facility] Medical as:Keppra) [place] tramadol Notes: Not Inactive [facility] hydrochloride 50 to exceed [facility] Medic al MG Oral Tablet 400mg/day. Center (Same As: [facility]) Lorazepam Notes: Inactive [facility] (Same as: [address] [place] [address] Ativan) [place] Loratadine Notes: 1 hr Inactive [facility] before [facility] Medical meals Center (Same as: Claritin) Ondansetron 4 mg, Inactive [facility] Route: IVP, [facility] Medical Drug form: [place] INJ, ONCE, Dosing Weight 81.818, kg, Priority: STAT, Start date: 02/17/14 23:19:00, Stop date: 02/17/14 23:19:00 Benadryl 25 mg, Inactive [facility] Route: IVP, 014 Medical ONCE, Center Dosing Weight 81.818, kg, PRN Itching, Start date: 02/17/14 22:50:00 Meclizine 0 Refill(s) No Longer [address] Losartan 0 Refill(s) No Longer [address] Promethazine 0 Refill(s) [place]er [place] [address] [place] [address] Zetia 0 Refill(s) No Longer [address] Rogaine 0 Refill(s) No Longer [address] Lunesta 0 Refill(s) No Longer [address] Lipitor Notes: Same No Longer [facility] as Lipitor Active [address] [place] [address] Saline Flush 0.9% Notes: No Longer [place] (Same as: Active [address] [place] [address] Posiflush) Famotidine Notes: No Longer [facility] (Same as: Active [address] [place] [address] Pepcid) [place] Tylenol 650 mg, Inactive [facility] Route: PO, [facility] Medical Drug form: [place] TAB, ONCE, Dosing Weight 81.818, kg, Priority: [...] BID, Center Anxiety Zofran 4 mg, Inactive [facility] Route: IVP, 014 Medical Drug form: [place] INJ, ONCE, Dosing Weight 81.818, kg, Priority: STAT, Start date: 02/17/14 16:53:00, Stop date: 02/17/14 16:53:00 heparin, porcine Notes: [place] Longer [place] porcine Active 014 [facility] heparin Center Saline Flush 0.9% 10 ml, Inactive [place] Route: IVP, 014 Medical Drug Form: Center INJ, Dosing Weight 81.818, kg, PRN, PRN Line Flush, Start date: 02/17/14 15:43:00, Duration: 30 day, Stop date: 03/19/14 14:42:00 Labetalol 105mmHg No Longer [facility] Active 014 [facility] Center Acetaminophen Notes: Do No Longer [place] not exceed Active [facility] Medical 4 gm/day. Center (Same as: Tylenol) Sodium Chloride 1,000 mL, No Longer [place] 0.154 MEQ/ML Rate: 100 Active [facility] Medical Injectable ml/hr, Center Solution Infuse over: 10 hr, Route: IV, Dosing Weight 81.818 kg, Total Volume: 1,000, Start date: 02/17/14 15:43:00, Duration: 30 day, Stop date: 03/19/14 15:42:00 Plavix Notes: ( Inactive [facility] Same as: [address] [place] [address] Plavix) [place] aspirin Notes: Take Inactive [facility] with food. [address] [place] [address] Sodium Chloride 1,000 mL, Inactive [place] 0.154 MEQ/ML 1,000 014 Medical Injectable ml/hr, Center Solution Infuse Over: 1 hr, Route: IV, 1,000, Drug form: INJ, ONCE, Priority: STAT, Dosing Weight 81.818 kg, Start date: 02/17/14 15:16:00, Duration: 1 doses or times, Stop date: 02/17/14 15:16:00 iodixanol Special Inactive [facility] Instruction 014 Medical s: Dose = Center 2.2ml/kg, Max dose = 150ml -- "To be infused by Radiology Staff ONLY" iodixanol Special Inactive [facility] Instruction 014 Medical s: Dose = [...] No Longer [place] (Same as: Active [address] [place] [address] Posiflush) Allergies, Adverse Reactions, Alerts Substance Category Reaction Severity Reaction Status Date Comments S ource type Reported codeine Assertion Drug Active Mische r allergy Neuro penicillin Assertion Drug Active [place] allergy Neuro Immunizations No Data Provided for This Section Results Order Name Results Value Reference Date Interpretation Comments Mikaela rce Range SPECIAL Hgb A1C 6.6 <=5.6 % 02/18 [facility] CHEMISTRY [facility] LIPIDS CHD Risk 3.80 3.90 - 02/18 [facility] 5.80 [facility] LIPIDS Chol 167 <=199 02/18 [facility] mg/dL [facility] LIPIDS HDL 44 >=61 mg/dL 02/18 [facility] LIPIDS Trig 182 <=149 02/18 [facility] mg/dL [facility] LIPIDS VLDL 36 02/18 [facility] LIPIDS LDL 87 <=99 mg/dL 02/18 [facility] (Calculated) [facility] ANEMIA % Satur Fe 34 12 - 57 02/18 [facility] ANEMIA TIBC 342 228 - 428 02/18 [facility] STUDY [facility] ANEMIA UIBC 227 110 - 370 02/18 [facility] STUDY [facility] ANEMIA Iron 115 30 - 160 02/18 [facility] ANEMIA Ferritin Lvl 97 5 - 204 02/18 [facility] CHEM PANEL Lactic Acid 1.9 0.5 - 2.2 02/17 [place] L[place] /2013 [facility] URINE AND UA Mucus None Seen None Seen 02/17 [facility] STOOL (02/17/14 2:18 PM) /2013 [facility] Center URINE AND UA Sq Epi Few /LPF Few /LPF 02/17 [facility] STOOL [facility] URINE AND UA RBC None Seen 0 - 2 02/17 [facility] STOOL (02/17/14 2:18 PM) /2013 [facility] URINE AND UA Bacteria Occasional None Seen 02/17 [place] STOOL /HPF /HPF /2013 [facility] URINE AND UA WBC 0-2 /HPF None Seen 02/17 [facility] STOOL /HPF Medical [place] URINE AND UA Spec Grav 1.020 <=1.030 02/17 [facility] STOOL [facility] URINE AND UA Color Yellow Yellow 02/17 [facility] STOOL *NA* /2013 Medical (02/17/14 2:18 PM) Cente r URINE AND UA Turbidity Clear Clear 02/17 [facility] (02/17/14 2:18 PM) [facility] URINE AND UA Leuk Est Negative Negative 02/17 [facility] (02/17/14 2:18 PM) [facility] URINE AND UA Nitrite Negative Negative 02/17 [facility] (02/17/14 2:18 PM) [facility] URINE AND UA 0.2 0.1 - 1.0 02/17 [facility] Urobilinogen [facility] URINE AND UA Blood Negative Negative 02/17 [facility] (02/17/14 2:18 PM) [facility] URINE AND UA Bili Negative Negative 02/17 [facility] *NA* /2013 Medical (02/17/14 2:18 PM) Cente r URINE AND UA Glucose Negative Negative 02/17 [facility] (02/17/14 2:18 PM) [facility] URINE AND UA Ketones Negative Negative 02/17 [facility] *NA* /2013 Medical (02/17/14 2:18 PM) Cente r URINE AND UA Protein Negative Negative 02/17 [facility] (02/17/14 2:18 PM) [facility] URINE AND UA pH 6.5 5.0 - 8.0 02/17 [facility] STOOL [facility] CARDIAC CK MB 3.4 0.5 - 3.6 02/17 [facility] ENZYMES [facility] CARDIAC Troponin-I 0.07 0.00 - 02/17 [facility] ENZYMES 0.40 [facility] CARDIAC Total CK 123 12 - 191 02/17 [facility] ENZYMES [facility] CARDIAC CK MB Index 2.8 0.0 - 2.5 02/17 [facility] ENZYMES [facility] CHEM PANEL eGFR 02/17 <sup>1</sup>R [place] [...] PANEL Creatinine 1.4 0.5 - 1.4 02/17 [facility] CHEM PANEL Glucose Lvl 211 70 - 99 02/17 <sup>2</sup>I nterpretive Medical Data: Adult Center reference range values reflect the clinical guidelines
of the [place] [employer]. CHEM PANEL BUN 13 7 - 22 02/17 [facility] CHEM PANEL B/C Ratio 9 6 - 25 02/17 [facility] CHEM PANEL AGAP 16.8 10.0 - 02/17 20. [facility] CHEM PANEL Calcium Lvl 8.8 8.5 - 10.5 02/17 [facility] CHEM PANEL CO2 23 24 - 32 02/17 [facility] CHEM PANEL Chloride Lvl 105 95 - 109 02/17 [facility] CHEM PANEL Sodium Lvl 141 135 - 145 02/17 [facility] CHEM PANEL Potassium Lvl 3.8 3.5 - 5.1 02/17 [facility] CHEM PANEL A/G Ratio 1.0 0.7 - 1.6 02/17 [facility] CHEM PANEL Total Protein 7.0 6.4 - 8.4 02/17 [facility] CHEM PANEL Albumin Lvl 3.5 3.5 - 5.0 02/17 [facility] CHEM PANEL AST 24 0 - 37 02/17 [facility] CHEM PANEL ALT 28 0 - 65 02/17 [facility] CHEM PANEL Bili Total 0.6 0.2 - 1.3 02/17 [facility] CHEM PANEL Alk Phos 94 39 - 136 02/17 [facility] CHEM PANEL Globulin 3.5 2.0 - 4.0 02/17 [facility] CHEM PANEL Lactic Acid 4.9 0.5 - 2.2 02/17 <sup>3</sup>R M H [place] Lvl esult Medical Comment: Center Critical Result(s) [...] HEMATOLOGY PT 12.7 12.0 - 02/17 14.7 [facility] HEMATOLOGY Platelet 205 133 - 450 02/17 [facility] HEMATOLOGY MCH 29.0 27.0 - 02/17 31.0 [facility] HEMATOLOGY MCHC 33.7 32.0 - 02/17 [place] 36.0 [facility] HEMATOLOGY RDW 13.6 11.5 - 02/17 14.5 [facility] HEMATOLOGY Hct 51.8 36.0 - 02/17 [place] 48.0 /2013 [facility] HEMATOLOGY MCV 86.2 80.0 - 02/17 [place] 98.0 /2013 [facility] HEMATOLOGY Hgb 17.4 12.0 - 02/17 16.0 [facility] HEMATOLOGY RBC 6.01 4.20 - 02/17 [place] 5.40 /2013 [facility] HEMATOLOGY MPV 11.5 7.4 - 10.4 02/17 [facility] HEMATOLOGY WBC 14.1 3.7 - 10.4 02/17 [facility] HEMATOLOGY PTT 21.8 22.9 - 02/17 <sup>5</sup>[place] 35.8 nterpretive Medical Data: Heparin Center Therapeutic Range: 57 - 92 [place] HEMATOLOGY Plt Morph Normal 02/17 [facility] (02/17/14 12:09 PM) [facility] HEMATOLOGY RBC Morph Normal 02/17 [facility] (02/17/14 12:09 PM) [facility] HEMATOLOGY Eosinophils # 0.1 0.0 - 0.5 02/17 [facility] HEMATOLOGY Basophils # 0.1 0.0 - 0.2 02/17 [facility] HEMATOLOGY Segs-Bands # 10.8 1.5 - 8.1 02/17 [facility] HEMATOLOGY Monocytes # 0.6 0.0 - 0.8 02/17 [facility] HEMATOLOGY Lymphocytes # 2.5 1.0 - 5.5 02/17 [facility] HEMATOLOGY Lymphocytes 17.5 20.0 - 02/17 40.0 [facility] HEMATOLOGY Segs 77.0 45.0 - 02/17 [place] 75.0 [facility] HEMATOLOGY Monocytes 4.3 2.0 - 12.0 02/17 [facility] HEMATOLOGY Basophils 0.4 0.0 - 1.0 02/17 [facility] HEMATOLOGY Eosinophils 0.8 0.0 - 4.0 02/17 [facility] Pathology Reports No Data Provided for This Section Diagnostic Reports No Data Provided for This Section Consultation Notes No Data Provided for This Section Discharge Summaries No Data Provided for This Section History and Physicals No Data Provided for This Section Vital Signs Vital Sign Value Date Comments Source Systolic (mm Hg) 102 06/26/2019 [facility] [place] Diastolic (mm Hg) 59 06/26/2019 [facility] [place] uro Heart Rate 70 06/26/2019 [facility] Respitory Rate 16 06/26/2019 [facility] Height 157.48 cm 06/26/2019 [facility] Weight 58.182 06/26/2019 [facility] BMI Calculated 23.46 06/26/2019 [facility] Systolic (mm Hg) 143 01/15/2019 [facility] [place] Diastolic (mm Hg) 76 01/15/2019 [facility] [place] uro Heart Rate 66 01/15/2019 [facility] Respitory Rate 16 01/15/2019 [facility] Height 157.48 cm 01/15/2019 [facility] Weight 56.818 01/15/2019 [facility] BMI Calculated 22.91 01/15/[facility] Weight 55.455 10/29/2018 [facility] BMI Calculated 22.36 10/29/2018 [facility] Height 157.48 cm 10/29/2018 [facility] Systolic (mm Hg) 136 10/29/2018 [place] Diastolic (mm Hg) 86 10/29/2018 [facility] Respitory Rate 16 10/29/2018 [facility] Heart Rate 71 10/29/2018 [facility] Weight 57.273 09/27/2018 [facility] BMI Calculated 23.86 09/27/2018 [facility] Height 154.94 cm 09/27/2018 [facility] Respitory Rate 16 09/27/2018 [facility] Systolic (mm Hg) 153 09/27/2018 [facility] [place] [facility] Diastolic (mm Hg) 85 09/27/2018 [facility] [place] uro Heart Rate 60 09/27/2018 [facility] Neuro Systolic (mm Hg) 195 02/18/2014 [facility] dical Center Diastolic (mm Hg) 92 02/18/2014 [facility] edical Center Respitory Rate 18 02/18/2014 [facility] Center Systolic (mm Hg) 159 02/18/2014 [facility] dical Center Diastolic (mm Hg) 91 02/18/2014 [facility] Resp[facility] Rate 27 02/18/2014 [facility] Center Systolic (mm Hg) 144 02/18/2014 [facility] dical Center Diastolic (mm Hg) 77 02/18/2014 [facility] Respitory Rate 27 02/18/2014 [facility] Temperature Oral (F) 99.5 F 02/18/2014 [facility] [place] [facility] Height 172.72 cm 02/17/2014 [facility] BMI Calculated 27.43 02/17/2014 [facility] Weight 81.818 02/17/2014 [facility] [place] Heart Rate 120 02/17/2014 [facility] [place] Encounters Location Location Encounter Encounter Reason Attending ADM DC Stat us Source Details Type Number For Provider Date Date Visit [facility] In[facility] [id number] [place] 02/17 02/19 Rachel Koenigales /2013 [facility] MNA Outpatient [id number] [place] 09/27 09/28 [facility] [place] /2018 [facility] [place] [facility] [id number] Oscar 10/29 Active [facility] [place] MNA Outpatient [id number] Oscar 10/29 10/30 [facility] [place] [facility] [id number] Oscar 12/10 Active [facility] [place] MNA Ambulatory [id number] Oscar 12/10 12/10 [facility] Pre-Reg [facility] [place] Out[facility] [id number] Oscar 01/15 Active [facility] [place] MNA Outpatient [id number] Oscar 01/15 01/16 [facility] [place] Out[facility] [id number] Oscar 01/29 Active [facility] [place] MNA Ambulatory [id number] Oscar 01/29 01/29 [facility] Pre-Reg Kre [facility] [place] Out[facility] [id number] Oscar 02/04 Active [facility] [place] MNA Ambulatory [id number] Oscar 02/04 02/04 [facility] Pre-Reg Kre [facility] [place] MNA Outside [id number] 03/18 03/20 [facility] /2018 [facility] [place] [facility] Outpatient [id number] Oscar 06/25 [facility] [place] MNA Outpatient [id number] Oscar 06/25 06/26 [facility] [place] [facility] [id number] Oscar 11/06 [facility] [place] Procedures Procedure Code Date Perfomer Comments Source Back fusion [id number] [facility] Assessment and Plan Assessment and Plan Date Source Extracted from:Title: Stroke Fellow H/P 02/19/2014 [facility] Author: Robert Martinez MD Date: 02/17/14 [...] left side. Her BP on arrival to [facility] ED at was 126/90 and her glucose was 211. Patient's exam has been non focal although she chyu ears disoriented, unable to recollect th e earlier events of the day and making a few paraphasic errors. At baseline, and son Marcos report that patient has suffered cognitive decline (mostly as azul rt term memory loss) after her 2006 stro ke. 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 She is otherwise fully independent per [...] son in his 40s, hypertension, father of [place], mother of lung cancer. SOCIAL HISTORY: The [...] and vibration throughout. Coordination: no dysmetria on [id number]. Reflexes: R Biceps 2+, Triceps 2+, Brach ioradialis 2+, Patella 2+, Ankle 2+. L Biceps 2+, Triceps 2+, Brachioradialis 2+, Patella 2+, Ankle 2+. Toes downgoing bilaterally. Gait: not tested. NIH Stroke Scale (NIHSS) 1a. Level of Consciousness; 0-alert 1-drowsy 2-stupor 3-com atose 0 1b. LOC Questions month and age; 0-both 1-one 2-neither 1 (said she was 62) 1c. LOC Commands open/close eyes, senior sales compensation analyst/ release non-paretic hand; 0-both 1-one 2-neither 塝 0 2. Best Gaze; 0-nl 1-partial 2-forced gaze 0 3. Visual Quesada; 0-No visual loss. 1-P artial hemianopia 2-Complete 3-Bilateral 0 4. Facial Palsy; 0-none 1-minor 2-partial 3-complete 0 5. Motor - R arm; 0-No drift 1-Drift 2- Some antigravity 3-No antigravity 4-No movement 𔷎 0 6. Motor - R leg; 0-No drift 1-Drift 2- Some antigravity 3-No antigravity 4-No movement 옗 0 7. Motor - L arm; 0-No drift 1-Drift 2- Some antigravity 3-No antigravity 4-No movement 𒙛 0 8. Motor - L leg; 0-No drift 1-Drift 2- Some antigravity 3-No antigravity 4-No movement 쾕 0 9. Limb Ataxia; 0 absent 1 - 1limb 2 - 2 limbs 0 10. Sensory; 0-nl 1-partial loss 2-dense loss 0 11. Best Language; 0-nl 1-mild/mod 2-severe 3-mute 0 12. Dysarthria; 0-nl 1-mild/mod 2-severe x-untestable 0 13. 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 - Questionable age-indeterminate ischemic change in the righ t thalamus. - No hemorrhage. 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 - Diffuse intracranial atherosclerosis m ost evident in the left MCA, bilateral dye line operator and basilar artery. - Laterally projecting 3 [...] symptomatic [facility]. DIFFERENTIAL DIAGNOSIS TIA vs. seizure [...] Treat fevers and blood sugars aggressively. - PT/OT/CORPORATE HEALTH CONSULTANT consults - rehab assessments have been ordered. [...] AStormy Martinez MD Vascular Neurology fellow MSO# [id number] Pager# [phone] [employer]OKE STAFF I have personally evaluated the [...] t evident in the left MCA, bilateral dye line operator and basilar artery. Laterally projecting 3 mm [...] cerebral hypoperfusion 401.9, HTN, malignant 288.6, leukocytosis 90272 Plan of Care No Data Provided for This Section Social History Social History Date Source Social History TypeResponse 02/18/2014 [facility] Substance Abuse Use: None Sexual Sexually [...]
--- OUTSIDE RECORDS SUMMARY | 2019-10-13 03:56 | XMS REPORT | Continuity of Care Document ---
:1945 Author Organization [facility] t Address [address] [place] [address] Care Team Providers Name Role Phone Nael Ceballos Attending Clinician Radha Betancourt Attending Clinician Radha Betancourt Admitting Clinician Problems Condition Condition Condition Status Onset Resolution Last Treating Co mments Source Name Details Category Date Date Treatment Clinician Date CVA Diagnosis Active 2013-042014-07-23 Mem oria 0-28 11:07:00 l CVA 00:00: Gonsalo 00 Active 02/17/2014 [facility] AMS. CVA Diagnosis Active 2013-042014-03-03 M emoria 0-28 15:36:00 l AMS. CVA 00:00: Celestino n 00 Active 02/17/2014 [facility] Hyperlipid Hyperlipid Diagnosis Active [facility] - unspecifie unspecifie Me moria d d l hyperlipid hyperlipid Ou tpati emia type emia type ent Clinics Gastro-eso Gastro-eso Diagnosis Active [facility] phageal phageal [facility] - reflux reflux Memoria l Outpati ent Clinics Type II Type II Diagnosis Active [facility] diabetes diabetes [facility] - mellitus mellitus Memori a with with l nephropath nephropath Ou tpati y y ent Clinics Chronic Chronic Diagnosis Active [facility] kidney kidney [facility] - disease, disease, Memori a unspecifie unspecifie l d CKD d CKD Outpati stage stage ent Clinics Cat Cat Problem Active [facility] scratch scratch [facility] Clinics Hypertensi Hypertensi Diagnosis Active [facility] on, on, [facility] - unspecifie unspecifie Me moria d type d type l Outpati ent Clinics Vitamin D Vitamin D Problem Active [facility] deficiency deficiency [place] - Memoria l Outpati ent Clinics Depression Depression Problem Active [facility] with with [facility] - anxiety anxiety [facility]oria l [facility] Abdominal Abdominal Problem Active [facility] [...] St loss loss [facility] l [facility] Low back Low back Problem Active [facility] Right leg Right leg Problem Active [facility] pain pain 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 Other Other Problem Active [facility] chronic chronic [facility] - pain pain [facility]oria l [facility] Diverticul Diverticul Problem Active [facility] itis itis [facility] Pain in Pain in Diagnosis Active [facility] left left [facility] - shoulder shoulder Memori a l [facility] Right hip Right hip Problem Active [facility] pain pain [facility] Claudicati Claudicati Problem Active [facility] on in on in [facility] - peripheral peripheral Me moria vascular vascular l disease disease [facility] Allergic Allergic Problem Active [facility] rhinitis rhinitis [facility] l [facility] IBS IBS Problem Active [facility] (irritable (irritable [place] - colon colon Memoria syndrome) syndrome) l [facility] Grief Grief Problem Active [facility] Left hand Left hand Problem Active [facility] pain pain [facility] Swelling Swelling Problem Active [facility] of left of left [facility] - hand hand [facility]oria l [facility]ics Hypokalemi Hypokalemi Problem Active [facility] Skin Skin Problem Active [facility] erythema erythema [facility] Abnormal Abnormal Problem Active [facility] renal renal [facility] - function function Memori a test test l [facility] ent Clinics Elevated Elevated Problem Active [facility] TSH TSH [facility] Clinics Imbalance Imbalance Problem Active [facility]ics Ovarian ca Ovarian ca Problem Active [facility] Hospital Hospital Diagnosis Active [facility] discharge discharge Luke s - follow-up follow-up Blayne monty l [facility] Cerebrovas Problem Resolve 2019-06-29 Memoria cular d 01:36:48 l accident [place] (disorder) Cerebrovas cular accident (disorder) Resolved Problem 06/29/2019 [facility] Diverticul Problem Resolve 2019-06-29 Memoria itis d 01:36:48 l (disorder) Celestino n Diverticul itis (disorder) Resolved Problem 06/29/2019 [facility] High Problem Resolve 2019-06-29 Blayne monty density d 01:36:48 l lipoprotei High Celestino n n density (substance lipoprotei ) n (substance ) Resolved Problem 06/29/2019 [facility] Hypertensi Problem Resolve 2019-06-29 Memoria ve d 01:36:48 l disorder, [place] systemic Hypertensi arterial ve (disorder) disorder, systemic arterial (disorder) Resolved Problem 06/29/2019 [facility] Dementia Problem Active 2019-06-29 Mem oria (disorder) 01:36:48 l Dementia Celestino n (disorder) Active Problem 06/29/2019 [facility] Depressive Problem Active 2019-06-29 M emoria disorder 01:36:48 l (disorder) Celestino n Depressive disorder (disorder) Active Problem 06/29/2019 [facility] Diabetes Problem Active 2019-06-29 Mem oria mellitus 01:36:48 l type 2 Diabetes Celestino n (disorder) mellitus type 2 (disorder) Active Problem 06/29/2019 [facility] Hyperlipid Problem Active 2019-06-29 M emoria emia 01:36:48 l (disorder) Celest[place] n Hyperlipid emia (disorder) Active Problem 06/29/2019 [facility] Neuro Lumbar Problem Active 2019-06-29 Memor ia radiculopa 01:36:48 l thy Lumbar [place] (disorder) radiculopa thy (disorder) Active Problem 06/29/2019 [facility] Memory Problem Active 2019-06-29 Memor ia impairment 01:36:48 l (finding) Memory Juju nn impairment (finding) Active Problem 06/29/2019 [facility] Transient Problem Active 2019-06-29 Me moria ischemic 01:36:48 l attack [place] (disorder) Transient ischemic attack (disorder) Active Problem 06/29/2019 [facility] Tremor Problem Active 2019-06-29 Memor ia (finding) 01:36:48 l Tremor [place] (finding) Active Problem 06/29/2019 [facility] ALTERED Diagnosis Active 2014-03-03 Me moria MENTAL 15:36:00 l STATUS ALTERED [place] MENTAL STATUS Active [facility] Allergies, Adverse Reactions, Alerts Allergy Allergy Status Severity Reaction(s) Onset Inactive Treating Comm ents Source Name Type Date Date Clinician codeine Adverse Active Info Not [facility] Reaction Available [facility] PCN Adverse Active Info Not [facility] Reaction [facility] bee Adverse Active Info Not [facility] sting Reaction Available [facility] ent Clinics codeine codeine Active [facility] [place] penicill penicill Active Memori a in in l [place] Social History Social Habit Start Date Stop Date Quantity Comments Source Social History 2014-02-18 2014-02-18 [facility] Ashkan mackenzie 06:59:10 06:59:10 Medications Ordered Filled Start Stop Current Ordering Indication Dosage Frequency Signature Comments Components Source Medication Medication Date Date Medication? Clinician (SIG) Name Name Aspirin 81 Yes 81 mg = 1 Me moria MG Enteric 3-05 tab, PO, l Coated 22:38: Daily, # [place] Tablet 00 90 tab, 3 Refill(s) donepezil 5 Yes = 1 tab, Me moria mg oral 3-05 PO, l tablet 22:09: Bedtime, # Juju nn 00 30 tab, 2 Refill(s), [id number] Mupirocin Mupirocin 2019- No Lorraine [address] 05-14 Millender applicatio Eboni es - 00:00: 00:00 n to Memoria 00 :00 affected l area [facility] Metformin 2019-0 Yes 500 mg, Memor ia 9-25 PO, 0 l 16:58: Refill(s) Effexor 2019-0 Yes 75 mg, PO, Blayne monty 9-25 0 l 16:58: Refill(s) atorvastati 2019-0 Yes 50 mg, PO, Memoria n 9-25 Daily, 0 l 16:58: Refill(s) pantoprazol 2019-0 Yes 40 mg = 2 M emoria e 20 mg 9-25 tab, PO, l oral 16:58: Daily, # [place] enteric 00 60 tab, 0 coated Refill(s) tablet eszopiclone 2019-0 Yes 3 mg = 1 Me moria 3 mg oral 9-25 tab, PO, l tablet 16:58: Bedtime, PRN for insomnia, 0 Refill(s) Donepezil 2019-0 Yes 5 mg = 1 Blayne monty hydrochlori 7-09 tab, PO, l de 5 MG 17:24: Bedtime, # Huan polk Oral Tablet 00 30 tab, 3 [Aricept] Refill(s), Pharmacy: [facility] [id number] Amlodipine 2019-0 Yes 10 mg = 1 Me moria 10 MG Oral 6-07 tab, PO, l Tablet 20:42: Daily, # [place] [Norvasc] 00 30 tab, 1 Refill(s) gabapentin 2019-0 Yes 100 mg = 1 M emoria 100 MG Oral 6-07 cap, PO, l Capsule 20:42: BID, 0 Refill(s) Effexor 2019-0 Yes 75 mg, PO, Blayne monty 6-07 Daily, 0 l 20:11: Refill(s) Tramadol 2019-0 Yes 50 mg, PO, Mem oria 6-07 Q4-6H, PRN l 20:11: Pain, # 20 tab, 0 Refill(s) Lorazepam 2018-0 Yes 0 [...] tab, PO, l tablet 19:47: Daily, # Gonsalo 00 30 tab, 0 Refill(s) omeprazole 2013-04 [...] tab, PO, l Tablet 19:47: Daily, # [place] [Zetia] 00 30 tab, 0 Refill(s) gabapentin 2013-04 Yes 300 mg = 1 M emoria 300 MG Oral 0-29 cap, PO, l Capsule 19:47: TID, # 90 Juju nn [Neurontin] 00 cap, 0 Refill(s) clopidogrel 2013-04 No Notes: Blayne monty 0-29 (Same As: l 14:00: Plavix) [place] Aspirin 325 2013-04 No Notes: (Do Memoria MG Enteric 0-29 Not Crush) l Coated 14:00: Do not [place] Tablet 00 crush or chew. Keppra 2013-04 No Notes: Memoria 0-29 (Same l 09:30: as:Keppra) [place] tramadol 2013-04 No Notes: Not Mem oria hydrochlori 0-29 to exceed l de 50 MG 09:12: 400mg/day. Her cm Oral Tablet 00 (Same As: Ultram) Lorazepam 2013-04 No Notes: Memori a 0-29 (Same as: l 06:30: Ativan) [place] 00 Loratadine 2013-04 No Notes: 1 Mem [...] No 0 Memoria 0-29 Refill(s) l 03:43: Losartan 2013-04 No 0 Memoria 0-29 Refill(s) l 03:43: Promethazin 2013-04 No 0 Memori a e 0-29 Refill(s) l 03:43: Zetia 2013-04 No 0 Memoria 0-29 Refill(s) l 03:43: Rogaine 2013-04 No 0 Memoria 0-29 Refill(s) l 03:42: Lunesta 2013-04 No 0 Memoria 0-29 Refill(s) l 03:42: Lipitor 2013-04 No Notes: Memoria 0-29 Same as l 02:00: Lipitor Saline 2013-04 No Notes: Memoria Flush 0.9% 0-29 (Same as: l 02:00: BD Posiflush) Famotidine 2013-04 No Notes: Memor ia 0-29 (Same as: l 02:00: Pepcid) Tylenol 2013-04 No 650 mg, Memoria 0-28 Route: PO, l 23:43: Drug form: TAB, ONCE, Dosing Weight 81.818, kg, [...] 0-28 tab, PO, l Tablet 22:38: Bedtime, [place] [Lunesta] 00 for insomnia clarithromy 2013-04 No 500 mg = 1 Memoria marshall 500 mg 0-28 tab, PO, l oral tablet 22:36: BID, 0 Refill(s) Metoclopram 2013-04 Yes 10 mg = 1 M emoria jimenez 10 MG 0-28 tab, PO, l Oral Tablet 22:35: QID-Before [place] [Reglan] 00 Meals, as needed for gastropare sis, 0 Refill(s) ciprofloxac 2013-04 No 500 mg = 1 Memoria in 500 mg 0-28 tab, PO, l oral tablet 22:35: BID Celestino n 00 simvastatin 2013-04 Yes 40 mg = 1 M emoria 40 mg oral 0-28 tab, PO, l tablet 22:33: Daily, # G[place] 00 30 tab, 0 Refill(s) montelukast 2013-04 Yes 10 mg = 1 M emoria 10 MG Oral 0-28 tab, PO, l Tablet 22:33: QAM, as [place] [Singulair] 00 needed for allergies (in the Spring only), # 30 tab, 0 Refill(s) metoprolol 2013-04 Yes 50 mg = 1 Me moria tartrate 50 0-28 tab, PO, l mg oral 22:33: BID, # 180 Herm felicitas tablet 00 tab, 0 Refill(s) LORazepam 1 2013-04 Yes 1 mg = 1 Me moria mg oral 0-28 tab, PO, l tablet 22:31: BID, [place] 00 Anxiety Zofran 2013-04 No 4 mg, Memoria 0-28 Route: l 21:53: IVP, Drug form: INJ, ONCE, Dosing Weight 81.818, kg, Priority: STAT, Start date: 02/17/14 16:53:00, Stop date: 02/17/14 16:53:00 heparin, 2013-04 No Notes: Memoria porcine 0-28 porcine l 21:00: heparin Saline 2013-04 No 10 ml, Memoria Flush 0.9% 0-28 Route: l 20:43: IVP, Drug Form: INJ, Dosing Weight 81.818, kg, PRN, PRN Line Flush, Start date: 02/17/14 15:43:00, Duration: 30 day, Stop date: 03/19/14 14:42:00 Labetalol 2013-04 No 105mmHg Blayne monty 0-28 l 20:43: [place] 00 Acetaminoph 2013-04 No Notes: Do M emoria en 0-28 not exceed l 20:43: 4 gm/day. [place] (Same as: Tylenol) Sodium 2013-04 No 1,000 mL, Memori a Chloride 0-28 Rate: 100 l 0.154 20:43: ml/hr, Gonsalo MEQ/ML 00 Infuse Injectable over: 10 Solution hr, Route: IV, Dosing Weight 81.818 kg, Total Volume: 1,000, Start date: 02/17/14 15:43:00, Duration: 30 day, Stop date: 03/19/14 15:42:00 Plavix 2013-04 No Notes: ( Memoria 0-28 Same as: l 20:42: Plavix) aspirin 2013-04 No Notes: Memoria 0-28 Take with l 20:42: food. Sodium 2013-04 No 1,000 mL, Memori a Chloride 0-28 1,000 l 0.154 20:16: ml/hr, G[place]alo MEQ/ML 00 Infuse Injectable Over: 1 Solution hr, Route: IV, 1,000, Drug form: INJ, ONCE, Priority: STAT, Dosing Weight 81.818 kg, Start date: 02/17/14 15:16:00, Duration: 1 doses or times, Stop date: 02/17/14 15:16:00 iodixanol 2013-04 No Special Memor ia 0-28 Instructio l 18:55: ns: Dose = [place] 00 2.2ml/kg, Max dose = 150ml -- "To be infused by Radiology Staff ONLY" iodixanol 2013-04 No Special Memor ia 0-28 Instructio l 18:51: ns: Dose = [place] 00 2.2ml/kg, Max dose = 150ml -- "To be infused by Radiology Staff ONLY" Sodium 2013-04 No 1,000 mL, Memori a Chloride 0-28 1,000 l 0.154 17:51: ml/hr, [place] MEQ/ML 00 Infuse Injectable Over: 1 Solution hr, Route: IV, 1,000, Drug form: INJ, ONCE, Priority: STAT, Dosing Weight 81.818 kg, Start date: 02/17/14 12:51:00, Duration: 1 doses or times, Stop date: 02/17/14 12:51:00 Saline 2013-04 No Notes: Memoria Flush 0.9% 0-28 (Same as: l 16:53: BD [place] 00 Posiflush) Ativan Ativan Yes Lorraine 1 [...] l Outpati ent Clinics Bentyl Bentyl Yes Lorraine [address] Millender [...] Millender applicatio Luke s - n to [facility] Gabapentin Gabapentin Yes Lorraine [address] [facility] Immunizations Ordered Filled Immunization Date Status Comments Sourc e Immunization Name Name TDAP > 7 TDAP > 7 2019-05-[address] [facility] [facility] - Years-Adacel Years-Adacel 00:00:00 [facility] Outpatient Clinics Vital Signs Vital Name Observation Time Observation Value Comments Source Systolic (mm Hg) 2019-06-26 21:51:00 Blayne rial [place] Diastolic (mm Hg) 2019-06-26 21:51:00 Mem orial [place] Heart Rate 2019-06-26 21:51:00 Memorial [place] Respitory Rate 2019-06-26 21:51:00 Memori al [place] Height 2019-06-26 21:51:00 157.48 cm [facility] [place] Weight 2019-06-26 21:51:00 [facility] [place] BMI Calculated 2019-06-26 21:51:00 Memori al [place] Systolic (mm Hg) 2019-01-15 16:55:00 Blayne rial [place] Diastolic (mm Hg) 2019-01-15 16:55:00 Mem orial [place] Heart Rate 2019-01-15 16:55:00 [facility] [place] Respitory Rate 2019-01-15 16:55:00 Memori al [place] Height 2019-01-15 16:55:00 157.48 cm [facility] [place] Weight 2019-01-15 16:55:00 [facility] [place] BMI Calculated 2019-01-15 16:55:00 Memori al [place] Weight 2018-10-29 17:07:00 [facility] [place] BMI Calculated 2018-10-29 17:07:00 Memori al [place] Height 2018-10-29 17:07:00 157.48 cm [facility] [place] Systolic (mm Hg) 2018-10-29 17:07:00 Blayne rial [place] Diastolic (mm Hg) 2018-10-29 17:07:00 Mem orial [place] Respitory Rate 2018-10-29 17:07:00 Memori al [place] Heart Rate 2018-10-29 17:07:00 [facility] [place] Weight 2018-09-27 20:03:00 [facility] [place] BMI Calculated 2018-09-27 20:03:00 Memori al [place] Height 2018-09-27 20:03:00 154.94 cm [facility] [place] Respitory Rate 2018-09-27 20:03:00 Memori al [place] Systolic (mm Hg) 2018-09-27 20:03:00 Blayne rial [place] Diastolic (mm Hg) 2018-09-27 20:03:00 Mem orial [place] Heart Rate 2018-09-27 20:03:00 [facility] [place] Systolic (mm Hg) 2014-02-18 23:00:00 Blayne rial [place] Diastolic (mm Hg) 2014-02-18 23:00:00 Mem orial [place] Respitory Rate 2014-02-18 23:00:00 Memori al [place] Systolic (mm Hg) 2014-02-18 22:00:00 Blayne rial [place] Diastolic (mm Hg) 2014-02-18 22:00:00 Mem orial [place] Respitory Rate 2014-02-18 22:00:00 Memori al [place] Systolic (mm Hg) 2014-02-18 21:00:00 Blayne rial [place] Diastolic (mm Hg) 2014-02-18 21:00:00 Mem orial [place] Respitory Rate 2014-02-18 21:00:00 Memori al [place] Temperature Oral (F) 2014-02-18 03:12:00 99.5 F [facility] [place] Height 2014-02-17 16:42:00 172.72 cm [facility] [place] BMI Calculated 2014-02-17 16:42:00 Memori al [place] Weight 2014-02-17 16:42:00 [facility] [place] Heart Rate 2014-02-17 16:42:00 [facility] [place] Procedures Procedure Date / Time Performed Performing Clinician Sourc e Back fusion [facility] [place] Encounters Start End Encounter Admission Attending Care Care Encounter Source Date/Time Date/Time Type Type Clinicians Facility Department ID 2019-10-03 2019-10-03 [facility] [id number] [address] 10:20:00 10:20:00 [facility] Family Medicine Medicine Outpati ent Clinics 2019-06-26 2019-06-26 Outpatient RIVERA Ceballos [id number] 15:00:00 23:59:59 Oscar 06 Nael 2019-06-03 2019-06-03 [facility] [id number] 03:07:00 03:07:00 t [facility] Medicine Outpati ent Clinics 2019-05-30 2019-05-30 [facility] [id number] 15:00:00 15:00:00 t [facility] Medicine Outpati ent Clinics 2019-05-19 2019-05-19 [facility] [id number] [facility] 19:21:00 19:21:00 t [facility] Medicine Outpati ent Clinics 2019-05-14 2019-05-14 [facility] [id number] 00:12:00 00:12:00 [facility] Medicine Outpati ent Clinics 2019-05-13 2019-05-13 [facility] [id number] 23:58:00 23:58:00 [facility] Medicine Outpati ent Clinics 2019-05-13 2019-05-13 [facility] [id number] 13:45:00 13:45:00 [facility] Medicine Outpati ent Clinics 2019-03-18 2019-03-19 Outpatient MHMISCHER MHMISCHER [id number] 12:48:37 23:59:59 2019-02-04 2019-02-04 Outpatient JESUS CeballosSCHER SACHINMISCHER [id number] 13:00:00 13:00:00 Oscar 05 [facility] 2019-01-29 2019-01-29 Outpatient JESUS CeballosSCHER MHMISCHER [id number] 14:15:00 14:15:00 Oscar 04 [facility] 2019-01-15 2019-01-15 Outpatient JESUS CeballosSCHER SACHINMISCHER [id number] 11:30:00 23:59:59 Oscar 03 [facility] 2018-12-10 2018-12-10 Outpatient JESUS CeballosSCHER MHMISCHER [id number] 11:15:00 11:15:00 Oscar 02 Nael 2018-10-29 2018-10-29 [id number] 11:45:00 23:59:59 Oscar 01 Nael 2018-09-27 2018-09-27 Outpatient RIVERA Ceballos [facility] RANDALL[facility] [id number] 14:45:00 23:59:59 Oscar 00 Nael 2014-02-17 2014-02-18 Outpatient HETAL Betancourt [id number] 11:41:00 21:00:00 Susannah Oneil Radha Results Test Description Test Time Test Comments Results Result Sourc e Comments SPECIAL CHEMISTRY 2014-02-18 6.6 Memoria l 20:27:20 [place] LIPIDS 2014-02-18 3.80 Memorial 17:20:44 [place] LIPIDS 2014-02-18 167 Memorial 17:20:44 [place] LIPIDS 2014-02-18 44 Memorial 17:20:44 [place] LIPIDS 2014-02-18 182 Memorial 17:20:44 [place] LIPIDS 2014-02-18 36 Memorial 17:20:44 [place] LIPIDS 2014-02-18 87 Memorial 17:20:44 [place] ANEMIA STUDY 2014-02-18 34 Memorial 10:15:00 [place] ANEMIA STUDY 2014-02-18 342 Memorial 10:15:00 [place] ANEMIA STUDY 2014-02-18 227 Memorial 10:15:00 [place] ANEMIA STUDY 2014-02-18 115 Memorial 10:15:00 [place] ANEMIA STUDY 2014-02-18 97 Memorial 10:15:00 [place] CHEM PANEL 2014-02-17 1.9 Memorial 20:32:24 [place] URINE AND STOOL 2014-02-17 None Seen Memorial 19:18:07 (02/17/14 2:18 [place] PM) URINE AND STOOL 2014-02-17 None Seen Memorial 19:18:07 (02/17/14 2:18 [place] PM) URINE AND STOOL 2014-02-17 19:18:07 Test Item Value Reference Range Interpretation Comme nts UA Spec Grav (test code = UA Spec Grav) 1.020 1 [facility] [id number] 19:18:07Yellow *NA*(02/17/14 2:18 PM) [facility] [id number] 19:18:07Clear (02/17/14 2:18 PM) [facility] [id number] 19:18:07Negative (02/17/14 2:18 PM) [facility] [id number] 19:18:07Negative (02/17/14 2:18 PM) [facility] [id number] 19:18:070.2[facility] [id number] 19:18:07Negative (02/17/14 2:18 PM)[facility] [id number] 19:18:07Negative *NA*(02/17/14 2:18 PM)[facility] [id number] 19:18:07Negative (02/17/14 2:18 PM)[facility] [id number] 19:18:07Negative *NA*(02/17/14 2:18 PM)[facility] [id number] 19:18:07Negative (02/17/14 2:18 PM)[facility] [id number] 19:18:07 Test Item Value Reference Range Interpretation Comments UA pH (test code = UA pH) 6.5 1 5.0-8.0 [facility]ann[facility]ARDIAC [id number] 17:09:003.4[facility]ann[facility]ARDIAC [id number] 17:09:000.07[facility]annCARDIAC [id number] 17:09:00 123[facility]ann[facility]ARDIAC [id number] 17:09:002.8[facility] HermannCHEM [id number] 17:09:0028[facility] HermannCHEM [id number] 17:09:001.4 [facility]annCHEM [id number] 17:09:07085Uldlbrnw HermannCHEM PANEL 2014-02-17 17:09:0013[facility] HermannCHEM [id number] 17:09:009[facility] HermannCHEM [id number] 17:09:0016.8[facility] HermannCHEM [id number] 17:09:008.8[facility] HermannCHEM [id number] 17:09:0023Mem[facility] HermannCHEM [id number] 17:09:21165Aslqmuqn HermannCHEM [id number] 17:09:42407 [facility]annCHEM [id number] 17:09:003.8[facility] HermannCHEM PANEL 2014-02-17 17:09:001.0[facility] HermannCHEM [id number] 17:09:007.0[facility] HermannCHEM [id number] 17:09:003.5[facility] HermannCHEM [id number] 17:09:0024[facility] HermannCHEM [id number] 17:09:0028[facility] HermannCHEM [id number] 17:09:000.6[facility] HermannCHEM [id number] 17:09:0094 [facility]annCHEM [id number] 17:09:003.5[facility] HermannCHEM PANEL 2014-02-17 17:09:004.9[facility] [id number] 17:09:000.95[facility] [id number] 17:09:00 Test Item Value Reference Range Interpretation Comments PT (test code = PT) 12.7 s 12.0-14.7 [facility] [id number] 17:09:55156Mrfwbddp HermannHEMATOLOGY 2014-02-17 17:09:00 Test Item Value Reference Range Interpretation Comments MCH (test code = MCH) 29.0 pg 27.0-31.0 [facility] [id number] 17:09:0033.7[facility] HermannHEMATOLOGY 2014-02-17 17:09:0013.6[facility] [id number] 17:09:0051.8[facility] [id number] 17:09:0086.2[facility] [id number] 17:09:0017.4[facility] DskioidKBWPRMQVBM4404-06-07 17:09:006.01[facility] G[place] [id number] 17:09:0011.5[facility] [id number] 17:09:00 14.1[facility] [id number] 17:09:00 Test Item Value Reference Range Interpretation Comments PTT (test code = PTT) 21.8 s 22.9-35.8 [facility] [id number] 17:09:00Normal (02/17/14 12:09 PM)[facility] [id number] 17:09:00Normal (02/17/14 12:09 PM)[facility] [place] [id number] 17:09:000.1[facility] [id number] 17:09:000.1 Memorial [id number] 17:09:0010.8[facility] HermannHEMATOLOGY 2014-02-17 17:09:000.6[facility] [id number] 17:09:002.5[facility] [id number] 17:09:0017.5[facility] [id number] 17:09:0077.0[facility] [id number] 17:09:004.3[facility] [place] [id number] 17:09:000.4[facility] [id number] 17:09:000.8 [facility]
--- OUTSIDE RECORDS SUMMARY | 2019-10-13 03:57 | XMS REPORT ---
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 Problem Allergic rhinitis J30.9 Active Problem Pain in left shoulder M25.512 Active Problem Cat scratch W55.03XA Active Problem Hyperlipemia E78.5 Active Problem Bilateral low back pain without M54.5 Active sciatica, unspecified chronicity Problem Left hand pain M79.642 Active Problem Forgetfulness R68.89 Active Problem Ovarian ca C56.9 Active Problem Swelling of left hand M79.89 Active Problem Grief reaction F43.21 Active Problem Grief F43.21 Active Assessment Hyperlipidemia, unspecified E78.5 Active hyperlipidemia type Problem Imbalance R26.89 Active Problem Gastro-esophageal reflux K21.9 Act marlen Assessment Gastro-esophageal reflux K21.9 Act marlen Problem Skin erythema L53.9 Active Assessment Pain in left shoulder M25.512 Active Problem Hypokalemia E87.6 Active Assessment Bilateral low back pain without M54.5 Active sciatica, unspecified chronicity Problem Abnormal renal function test R94.4 Active Assessment Other chronic pain G89.29 Active Problem Elevated TSH R79.89 Active Problem Right leg pain M79.604 Active Problem Hypertension, unspecified type I10 Active Problem Diverticulitis of large intestine K57.32 Active without perforation or abscess without bleeding Assessment 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 Problem Diverticulitis K57.92 Active Assessment Hypertension, unspecified type I10 Active Problem Memory loss R41.3 Active Assessment Chronic kidney disease, N18.9 Acti ve unspecified CKD stage Problem Right hip pain M25.551 Active Assessment Hospital discharge follow-up Z09 Active Problem Abdominal pain, unspecified R10.9 Active abdominal location Problem Low back pain M54.5 Active Problem Other chronic pain G89.29 Active Medications Medication Code Code Instructions Start End Status Dosage System Date Date Amlodipine [facility] 71677300115 10 MG Orally Active 1 ta blet Besylate Once a day Protonix [facility] 66181899990 20 MG Orally Active 1 tabl et Once a day Lunesta [facility] 37392830429 3 MG Orally Active 1 tablet Once a day immediately before bedtime Mupirocin [facility] 21587942270 2 % Externally Active 1 a pplication Two times a day to affec yossi area Protonix [facility] 92783688740 40 MG Orally Active 1 tabl et Once a day EpiPen 2-Ney [facility] [address]-90 0.3 MG/0.3ML Active not defined (1:1000) Intramuscular Atorvastatin [facility] 99278311719 20 Orally Once Active 1 tablet in Calcium a day evening Donepezil HCl [facility] 67399080172 5 MG Orally Active 1 tablet at Once a day bedtime Simvastatin [facility] 79741204318 40 MG Orally Active 1 t ablet in Once a day the evening Bactrim DS [facility] 79799707479 800-160 MG Active 1 tabl et Orally Twice a day Cardura [facility] 25268658017 2 MG Orally Active 1 tablet in Once a day evening Vitamin D [facility] 55251798973 2000 UNIT Active 1 tablet Orally Once a day Lotrisone [facility] 26676339763 1-0.05 % Active 1 applica tion Externally to affected Twice a day area Metformin HCl [facility] 97030582329 500 Orally Active 1 t ablet Twice a day Metoprolol [facility] 09916768773 50 MG Orally Active 1 ta blet Tartrate Twice a day Effexor XR [facility] 66165566760 75 MG Orally Active 3 ca psules Once a day Bactroban [facility] 72650812316 2 % Externally Active 1 a pplication Three times a to affecte d day area Gabapentin [facility] [address]-92 100 mg Orally Active 1 capsule Twice a day as needed for pain Ativan [facility] 48071365444 1 MG Orally Active 1 tablet Three times a day Bentyl [facility] 50855194531 20 MG Orally Active 1 table t Four times a day Results Name Result Date Reference Range Unit Abnormali ty Flag HEMOGLOBIN A1C ----A1C 5.6% 20191003 GLUCOSE FINGER ----Result 108--RBS 20191003 Summary Purpose eClinicalWorks Submission
--- NOTE | 2019-10-13 05:11 | ER ---
Nurse's Notes [facility] Name: Amber Acosta Age: 73 yrs Sex: Female : 1945 Arrival Date: 10/13/2019 Time: 03:54 Bed 6 Private MD: Diagnosis: Abrasion of left hand;Abrasion of right hand Presentation: 10/12 03:58 Chief complaint: Patient states: I was seen here this morning for ant bites, I thought sg I was having an allergic reaction, was given some medication but its just not getting any better. Coronavirus screen: Proceed with normal triage. Ebola Screen: Patient negative for fever greater than or equal to 101.5 degrees Fahrenheit, and additional compatible Ebola Virus Disease symptoms Patient denies exposure to infectious person. Patient denies travel to an Ebola-affected area in the 21 days before illness onset. No symptoms or risks identified at this time. Initial Sepsis Screen: Does the patient meet any 2 criteria? No. Patient's initial sepsis screen is negative. Does the patient have a suspected source of infection? No. Patient's initial sepsis screen is negative. Risk Assessment: Do you want to hurt yourself or someone else? Patient reports no desire to harm self or others. Onset of symptoms was October 13, 2019. Care prior to arrival: None. Transition of care: patient was not received from another setting of care. 03:58 Acuity: IVETTE 5 sg 03:58 Method Of Arrival: Ambulatory sg Triage Assessment: 04:10 Bite description: bite sustained to right arm, left arm and neck by ants, animal vc information: vaccination(s) is not applicable. General: Appears in no apparent distress. comfortable, slender, Behavior is calm, cooperative, appropriate for age. Pain: Denies pain. Historical: - Allergies: 03:57 Bees; sg 03:57 Codeine; sg 03:57 hydrocodone bitartrate; sg 03:57 Iodinated Contrast Media - IV Dye; sg 03:57 Levofloxacin; sg 03:57 METRONIDAZOLE; sg 03:57 PENICILLINS; sg 03:57 SHELLFISH; sg 03:57 sulfamethoxazole; sg 03:57 TRIMETHOPRIM; sg 03:57 Wasps; sg - PMHx: 03:57 Alzheimers; Anxiety; CAD; CVA; Depression; Diabetes - NIDDM; GERD; High Cholesterol; sg Hypertension; kidney cancer; Migraines; - PSHx: 03:57 Hysterectomy; sg - Immunization history:: Adult Immunizations up to date. - Social history:: Smoking status: Patient denies any tobacco usage or history of. - Family history:: not pertinent. Screenin:10 Abuse screen: Denies threats or abuse. Nutritional screening: No deficits noted. vc Tuberculosis screening: No symptoms or risk factors identified. Fall Risk None identified. Assessment: 04:11 Derm: Skin is intact, is thin, Skin is pink, warm \T\ dry. vc 04:14 General: Appears in no apparent distress. comfortable. Pain: Denies pain. Neuro: Level vc of Consciousness is awake, alert, obeys commands, Oriented to person, place, time, situation. Cardiovascular: Capillary refill < 3 seconds Patient's skin is warm and dry. Respiratory: Airway is patent Respiratory effort is even, unlabored, Respiratory pattern is regular, symmetrical. GI: No signs and/or symptoms were reported involving the gastrointestinal system. : No signs and/or symptoms were reported regarding the genitourinary system. Vital Signs: 04:12 BP 125 / 72; Pulse 79; Resp 20; Temp 98.0; Pulse Ox 97% on R/A; Weight 58.97 kg; Height vc 5 ft. 2 in. (157.48 cm); Pain 0/10; 04:12 Body Mass Index 23.78 (58.97 kg, 157.48 cm) vc ED Course: 03:54 Patient arrived in ED. ag3 03:57 Arm band placed on. sg 03:59 Triage completed. sg 04:10 Marta Layton, RN is Primary Nurse. vc 04:12 Patient has correct armband on for positive identification. Fall risk band placed. Bed vc in low position. Call light in reach. Pulse ox on. NIBP on. 04:14 Marcos Pink MD is Attending Physician. bi 05:16 No provider procedures requiring assistance completed. Patient did not have IV access vc during this emergency room visit. Administered Medications: No medications were administered Outcome: 05:11 Discharge ordered by . bi 05:16 Discharged to home ambulatory. vc 05:16 Condition: good 05:16 Discharge instructions given to patient, Instructed on discharge instructions, follow up and referral plans. Demonstrated understanding of instructions, follow-up care. 05:17 Patient left the ED. vc Signatures: Jai New, Marcos De Luna RN, MD MD cha Gomez, Alice ag3 Marta Layton RN RN vc
--- NOTE | 2019-10-13 05:11 | EDPHYS ---
Physician Documentation [facility] Name: Amber Acosta Age: 73 yrs Sex: Female : 1945 Arrival Date: 10/13/2019 Time: 03:54 Bed 6 Private MD: ED Physician Marcos Pink HPI: 10/12 05:05 This 73 yrs old Female presents to ER via Ambulatory with complaints of bi Insect Bite. 05:05 The patient or guardian reports an abrasion, injury, calaus. The complaints affect the bi MCP of left thumb, MCP of right thumb. Context: The problem was sustained at an unknown location. Onset: The symptoms/episode began/occurred 2 day(s) ago. Modifying factors: The symptoms are alleviated by nothing, the symptoms are aggravated by movement. Associated signs and symptoms: The patient has no apparent associated signs or symptoms. Severity of symptoms: At their worst the symptoms were very mild, in the emergency department the symptoms are unchanged. It is unknown whether or not the patient has had similar symptoms in the past. Historical: - Allergies: 03:57 Bees; sg 03:57 Codeine; sg 03:57 hydrocodone bitartrate; sg 03:57 Iodinated Contrast Media - IV Dye; sg 03:57 Levofloxacin; sg 03:57 METRONIDAZOLE; sg 03:57 PENICILLINS; sg 03:57 SHELLFISH; sg 03:57 sulfamethoxazole; sg 03:57 TRIMETHOPRIM; sg 03:57 Wasps; sg - PMHx: 03:57 Alzheimers; Anxiety; CAD; CVA; Depression; Diabetes - NIDDM; GERD; High Cholesterol; sg Hypertension; kidney cancer; Migraines; - PSHx: 03:57 Hysterectomy; sg - Immunization history:: Adult Immunizations up to date. - Social history:: Smoking status: Patient denies any tobacco usage or history of. - Family history:: not pertinent. ROS: 05:05 Constitutional: Negative for fever, chills, and weight loss, Eyes: Negative for injury, bi pain, redness, and discharge, ENT: Negative for injury, pain, and discharge, Neck: Negative for injury, pain, and swelling, Cardiovascular: Negative for chest pain, palpitations, and edema, Respiratory: Negative for shortness of breath, cough, wheezing, and pleuritic chest pain, Abdomen/GI: Negative for abdominal pain, nausea, vomiting, diarrhea, and constipation, Back: Negative for injury and pain, : Negative for injury, bleeding, discharge, and swelling, Neuro: Negative for headache, weakness, numbness, tingling, and seizure, Psych: Negative for depression, anxiety, suicide ideation, homicidal ideation, and hallucinations, Allergy/Immunology: Negative for hives, rash, and allergies, Endocrine: Negative for neck swelling, polydipsia, polyuria, polyphagia, and marked weight changes, Hematologic/Lymphatic: Negative for swollen nodes, abnormal bleeding, and unusual bruising. 05:05 MS/extremity: Positive for swelling, of the right hand and left hand. 05:05 Skin: Positive for thumb callus formation, not infected. Exam: 05:05 Constitutional: This is a well developed, well nourished patient who is awake, alert, bi and in no acute distress. Head/Face: Normocephalic, atraumatic. Eyes: Pupils equal round and reactive to light, extra-ocular motions intact. Lids and lashes normal. Conjunctiva and sclera are non-icteric and not injected. Cornea within normal limits. Periorbital areas with no swelling, redness, or edema. ENT: Nares patent. No nasal discharge, no septal abnormalities noted. Tympanic membranes are normal and external auditory canals are clear. Oropharynx with no redness, swelling, or masses, exudates, or evidence of obstruction, uvula midline. Mucous membranes moist. Neck: Trachea midline, no thyromegaly or masses palpated, and no cervical lymphadenopathy. Supple, full range of motion without nuchal rigidity, or vertebral point tenderness. No Meningismus. Chest/axilla: Normal chest wall appearance and motion. Nontender with no deformity. No lesions are appreciated. Cardiovascular: Regular rate and rhythm with a normal S1 and S2. No gallops, murmurs, or rubs. Normal PMI, no JVD. No pulse deficits. Respiratory: Lungs have equal breath sounds bilaterally, clear to auscultation and percussion. No rales, rhonchi or wheezes noted. No increased work of breathing, no retractions or nasal flaring. Abdomen/GI: Soft, non-tender, with normal bowel sounds. No distension or tympany. No guarding or rebound. No evidence of tenderness throughout. Back: No spinal tenderness. No costovertebral tenderness. Full range of motion. MS/ Extremity: Pulses equal, no cyanosis. Neurovascular intact. Full, normal range of motion. Neuro: Awake and alert, GCS 15, oriented to person, place, time, and situation. Cranial nerves II-XII grossly intact. Motor strength 5/5 in all extremities. Sensory grossly intact. Cerebellar exam normal. Normal gait. Psych: Awake, alert, with orientation to person, place and time. Behavior, mood, and affect are within normal limits. 05:05 Skin: Appearance: Color: normal in color, Temperature: normal temperature, Moisture: normal moisture, petechiae, not noted, ecchymosis, not noted, flushing, not noted, diaphoresis is not appreciated, abscess, not appreciated, cellulitis, is not appreciated, induration, is not appreciated, injury, is not appreciated, callus formation. Vital Signs: 04:12 BP 125 / 72; Pulse 79; Resp 20; Temp 98.0; Pulse Ox 97% on R/A; Weight 58.97 kg; Height vc 5 ft. 2 in. (157.48 cm); Pain 0/10; 04:12 Body Mass Index 23.78 (58.97 kg, 157.48 cm) vc MDM: 04:14 Patient medically screened. [facility] 05:08 Differential diagnosis: contusion, abrasion, tendonitis. Data reviewed: vital signs, [facility] nurses notes. 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 Counseling: I had a detailed discussion with the patient and/or guardian regarding: the historical points, exam findings, and any diagnostic results supporting the discharge/admit diagnosis, the need for outpatient follow up, for definitive care, an manager community. ED course: pt improved, will refrain from garden work, mild lotions to hand, follow up pcp. Administered Medications: No medications were administered Disposition: 10/13/19 05:11 Discharged to Home. Impression: Abrasion of left hand, Abrasion of right hand. - Condition is Stable. - Discharge Instructions: Abrasion, Abrasion, [id number]. - Medication Reconciliation Form, Thank You Letter, Antibiotic Education, Prescription Opioid Use form. - Follow up: Private Physician; When: 2 - 3 days; Reason: Recheck today's complaints, Continuance of care, Re-evaluation by your physician. - Problem is new. - Symptoms have improved. Signatures: Jai New RN RN Marcos Benson MD MD cha Calcote, Vanessa RN RN vc Corrections: (The following items were deleted from the chart) 05:17 05:11 10/13/2019 05:11 Discharged to Home. Impression: Abrasion of left hand; Abrasion vc of right hand. Condition is Stable. Forms are Medication Reconciliation Form, Thank You Letter, Antibiotic Education, Prescription Opioid Use. Follow up: Private Physician; When: 2 - 3 days; Reason: Recheck today's complaints, Continuance of care, Re-evaluation by your physician. Problem is new. Symptoms have improved. bi
[2019-10-13 05:21] VITALS: BP 125/72; TEMP 98; O2SAT 97
== END 2019-10-13 05:17 | disposition home or self-care (01) ==
LOC: ER 03:50
DX: S60.512A Abrasion of left hand, initial encounter (principal); S60.511A Abrasion of right hand, initial encounter; W57.XXXA Bitten or stung by nonvenomous insect and other nonvenomous arthropods, initial encounter; Y93.9 Activity, unspecified; Y92.9 Unspecified place or not applicable; I10 Essential (primary) hypertension; Z85.528 Personal history of other malignant neoplasm of kidney; G30.9 Alzheimer's disease, unspecified; F02.80 Dementia in other diseases classified elsewhere, unspecified severity, without behavioral disturbance, psychotic disturbance, mood disturbance, and anxiety; Z88.0 Allergy status to penicillin; Z88.2 Allergy status to sulfonamides; Z88.5 Allergy status to narcotic agent; Z88.8 Allergy status to other drugs, medicaments and biological substances; Z91.013 Allergy to seafood; Z91.030 Bee allergy status; Z91.038 Other insect allergy status
CPT/HCPCS: 99283

== ENCOUNTER 2019-10-21 06:36 | Emergency (ER) | payer OTHER ==
--- OUTSIDE RECORDS SUMMARY | 2019-10-21 06:44 | XMS REPORT | Continuity of Care Document ---
:1945 Author Organization [employer] Care Team Providers Name Role Phone [employer] Unavailable Un available Problems Problem Status Onset Classification Date Comments Sourc e Date Reported CVA Active 02/18/[address] AMS. 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, systemic N euro, arterial [place] (disorder) [facility] Hyperlipidemia Active Problem 06/29/2019 Misc her (disorder) Neuro Lumbar Active Problem 06/29/2019 [facility] radiculopathy Neuro (disorder) Memory impairment Active Problem 06/29/2019 [place] (finding) Neuro Transient ischemic Active Problem 06/29/2019 [facility] attack (disorder) Ne uro Tremor (finding) Active Problem 06/29/2019 [place] Neuro [facility] Medication Details Route Status Patient Ordering Order Source Instructions Provider Date Aspirin 81 MG 81 mg = 1 Active [facility] Enteric Coated tab, PO, 020 Neuro Tablet Daily, # 90 tab, 3 Refill(s) donepezil 5 mg = 1 tab, Active [place] oral tablet PO, 020 Neuro Bedtime, # 30 tab, 2 Refill(s), Pharmacy: [id number] Metformin 500 mg, PO, Active Mischer 0 [...] # [Aricept] 30 tab, 3 Refill(s), Pharmacy: [id number] Amlodipine 10 MG 10 mg = 1 [...] 019 Neuro Omeprazole 40 mg, No Longer [facility] Route: PO, Active 014 Medical Drug form: Jose A JEREZ, Daily, Dosing Weight 81.818, kg, Start date: 02/19/14 9:00:00, Duration: 30 day, Stop date: 03/20/14 9:00:00 Losartan Notes: No Longer [facility] (Same as: Active 014 Medical Cozaar) Center Zetia Notes: No Longer [facility] (Same as: [facility] [place] Protonix Notes: No Longer [facility] Tablet Active 014 Medical should not Center be chewed or crushed. (Same as: Protonix) gabapentin 300 MG Notes: No Longer [place] Oral Capsule (Same as: Active 014 Medical [Neurontin] Neurontin) Center Simvastatin Notes: Inactive [facility] (Same as: 014 Medical Zocor) Center Restoril Notes: Inactive [facility] (Same As: 014 Medical Restoril) Center Bentyl Notes: Inactive [facility] (Same as: 014 Medical Bentyl) Center Metoclopramide 10 Notes: [place] Oral Tablet (Same as: 014 Medical [Reglan] Reglan) Center Take 30 min before meals Lorazepam Notes: Inactive [facility] (Same as: 014 Medical Ativan) [place] Lunesta 3 mg, Inactive [facility] Route: PO, 014 Medical Drug [...] 12.5 12.5 mg = 1 On Hold [facility] mg oral tablet tab, PO, 014 Medical Q4H, Nausea Center & Vomiting, # 60 tab, 0 Refill(s) ezetimibe 10 MG 10 mg = 1 On Hold [place] as Oral Tablet tab, PO, 014 Medical [Zetia] Daily, # 30 Center tab, 0 Refill(s) gabapentin 300 MG 300 mg = 1 On Hold [facility] Oral Capsule cap, PO, 014 Medical [Neurontin] TID, # 90 Center cap, 0 Refill(s) clopidogrel Notes: Inactive [facility] (Same As: 014 Medical Plavix) Center Aspirin 325 MG Notes: (Do Inactive [place] Enteric Coated Not Crush) [facility] l Tablet Do not Center crush or chew. Keppra Notes: Inactive [facility] (Same [facility] as:Keppra) [place] tramadol Notes: Not Inactive [facility] hydrochloride 50 to exceed [facility] Medic al MG Oral Tablet 400mg/day. Center (Same As: [facility]) Lorazepam Notes: Inactive [facility] (Same as: [address] [place] [address] Ativan) [place] Loratadine Notes: 1 hr Inactive [facility] before [facility] meals Center (Same as: Claritin) Ondansetron 4 mg, Inactive [facility] Route: IVP, [facility] Medical Drug form: [place] INJ, ONCE, Dosing Weight 81.818, kg, Priority: STAT, Start date: 02/17/14 23:19:00, Stop date: 02/17/14 23:19:00 Benadryl 25 mg, Inactive [facility] Route: IVP, 014 Medical ONCE, Center Dosing Weight 81.818, kg, PRN Itching, Start date: 02/17/14 22:50:00 Meclizine 0 Refill(s) No Longer [address] Losartan 0 Refill(s) No Longer [address] Promethazine 0 Refill(s) [place]er [place] Active [address] [place] [address] Zetia 0 Refill(s) No Longer [address] Rogaine 0 Refill(s) No Longer [address] Lunesta 0 Refill(s) No Longer [address] Lipitor Notes: Same No Longer [facility] as Lipitor Active [address] [place] [address] Saline Flush 0.9% Notes: No Longer [place] (Same as: Active [address] [place] [address] Posiflush) Famotidine Notes: No Longer [facility] (Same as: Active [address] [place] [address] Pepcid) [place] Tylenol 650 mg, Inactive [facility] Route: PO, [facility] Medical Drug form: [place] TAB, ONCE, Dosing Weight 81.818, kg, Priority: [...] BID, Center Anxiety Zofran 4 mg, Inactive [facility] Route: IVP, 014 Medical Drug form: [place] INJ, ONCE, Dosing Weight 81.818, kg, Priority: STAT, Start date: 02/17/14 16:53:00, Stop date: 02/17/14 16:53:00 heparin, porcine Notes: [place] Longer [place] porcine Active [facility] heparin Center Saline Flush 0.9% 10 ml, [place]active [place] Route: IVP, 014 Medical Drug Form: Center INJ, Dosing Weight 81.818, kg, PRN, PRN Line Flush, Start date: 02/17/14 15:43:00, Duration: 30 day, Stop date: 03/19/14 14:42:00 Labetalol 105mmHg No Longer [facility] Active 014 [facility] Center Acetaminophen Notes: Do No Longer Jim as not exceed Active [facility] Medical 4 gm/day. Center (Same as: Tylenol) Sodium Chloride 1,000 mL, No Longer [place] 0.154 MEQ/ML Rate: 100 Active [facility] Medical Injectable ml/hr, Center Solution Infuse over: 10 hr, Route: IV, Dosing Weight 81.818 kg, Total Volume: 1,000, Start date: 02/17/14 15:43:00, Duration: 30 day, Stop date: 03/19/14 15:42:00 Plavix Notes: ( Inactive [facility] Same as: [address] [place] [address] Plavix) [place] aspirin Notes: Take Inactive [facility] with food. [address] [place] [address] Sodium Chloride 1,000 mL, [place]active [place] 0.154 MEQ/ML 1,000 014 Medical Injectable ml/hr, Center Solution Infuse Over: 1 hr, Route: IV, 1,000, Drug form: INJ, ONCE, Priority: STAT, Dosing Weight 81.818 kg, Start date: 02/17/14 15:16:00, Duration: 1 doses or times, Stop date: 02/17/14 15:16:00 iodixanol Special Inactive [facility] Instruction 014 Medical s: Dose = Center 2.2ml/kg, Max dose = 150ml -- "To be infused by Radiology Staff ONLY" iodixanol Special Inactive [facility] Instruction 014 Medical s: Dose = [...] No Longer [place] (Same as: Active [address] [place] [address] Posiflush) Allergies, Adverse Reactions, Alerts Substance Category Reaction Severity Reaction Status Date Comments S ource type Reported codeine Assertion Drug Active Mische r allergy Neuro penicillin Assertion Drug Active [place] allergy Neuro Immunizations No Data Provided for This Section Results Order Name Results Value Reference Date Interpretation Comments Mikaela rce Range SPECIAL Hgb A1C 6.6 <=5.6 % 02/18 [facility] CHEMISTRY [facility] LIPIDS CHD Risk 3.80 3.90 - 02/18 [facility] 5.80 [facility] LIPIDS Chol 167 <=199 02/18 [facility] mg/dL [facility] LIPIDS HDL 44 >=61 mg/dL 02/18 [facility] LIPIDS Trig 182 <=149 02/18 [facility] mg/dL [facility] LIPIDS VLDL 36 02/18 [facility] LIPIDS LDL 87 <=99 mg/dL 02/18 [facility] (Calculated) [facility] ANEMIA % [place] 34 12 - 57 02/18 [facility] ANEMIA TIBC 342 228 - 428 02/18 [facility] STUDY [facility] ANEMIA UIBC 227 110 - 370 02/18 [facility] STUDY [facility] ANEMIA Iron 115 30 - 160 02/18 [facility] ANEMIA Ferritin Lvl 97 5 - 204 02/18 [facility] CHEM PANEL Lactic Acid 1.9 0.5 - 2.2 02/17 [place] Lvl /2013 [facility] URINE AND UA Mucus None Seen None Seen 02/17 [facility] STOOL (02/17/14 2:18 PM) /2013 [facility] Center URINE AND UA Sq Epi Few /LPF Few /LPF 02/17 [facility] STOOL [facility] URINE AND UA RBC None Seen 0 - 2 02/17 [facility] STOOL (02/17/14 2:18 PM) /2013 [facility] URINE AND UA Bacteria Occasional None Seen 02/17 [place] ST[place]OL /HPF /HPF /2013 [facility] URINE AND UA WBC 0-2 /HPF None Seen 02/17 [facility] STOOL /HPF Medical [place] URINE AND UA Spec Grav 1.020 <=1.030 02/17 [facility] STOOL [facility] URINE AND UA Color Yellow Yellow 02/17 [facility] STOOL *NA* /2013 Medical (02/17/14 2:18 PM) Cente r URINE AND UA Turbidity Clear Clear 02/17 [facility] (02/17/14 2:18 PM) [facility] URINE AND UA Leuk Est Negative Negative 02/17 [facility] (02/17/14 2:18 PM) [facility] URINE AND UA Nitrite Negative Negative 02/17 [facility] (02/17/14 2:18 PM) [facility] URINE AND UA 0.2 0.1 - 1.0 02/17 [facility] Urobilinogen [facility] URINE AND UA Blood Negative Negative 02/17 [facility] (02/17/14 2:18 PM) [facility] URINE AND UA Bili Negative Negative 02/17 [facility] *NA* /2013 Medical (02/17/14 2:18 PM) Cente r URINE AND UA Glucose Negative Negative 02/17 [facility] (02/17/14 2:18 PM) [facility] URINE AND UA Ketones Negative Negative 02/17 [facility] *NA* /2013 Medical (02/17/14 2:18 PM) Cente r URINE AND UA Protein Negative Negative 02/17 [facility] (02/17/14 2:18 PM) [facility] URINE AND UA pH 6.5 5.0 - 8.0 02/17 [facility] STOOL [facility] CARDIAC CK MB 3.4 0.5 - 3.6 02/17 [facility] ENZYMES [facility] CARDIAC Troponin-I 0.07 0.00 - 02/17 [facility] ENZYMES 0.40 [facility] CARDIAC Total CK 123 12 - 191 02/17 [facility] ENZYMES [facility] CARDIAC CK MB Index 2.8 0.0 - 2.5 02/17 [facility] ENZYMES [facility] CHEM PANEL eGFR 02/17 <sup>1</sup>R [...] PANEL Creatinine 1.4 0.5 - 1.4 02/17 [facility] CHEM PANEL Glucose Lvl 211 70 - 99 02/17 <sup>2</sup>I nterpretive Medical Data: Adult Center reference range values reflect the clinical guidelines
of the [place] [employer]. CHEM PANEL BUN 13 7 - 22 02/17 [facility] CHEM PANEL B/C Ratio 9 6 - 25 02/17 [facility] CHEM PANEL AGAP 16.8 10.0 - 02/17 20. [facility] CHEM PANEL Calcium Lvl 8.8 8.5 - 10.5 02/17 [facility] CHEM PANEL CO2 23 24 - 32 02/17 [facility] CHEM PANEL Chloride Lvl 105 95 - 109 02/17 [facility] CHEM PANEL Sodium Lvl 141 135 - 145 02/17 [facility] CHEM PANEL Potassium Lvl 3.8 3.5 - 5.1 02/17 [facility] CHEM PANEL A/G Ratio 1.0 0.7 - 1.6 02/17 [facility] CHEM PANEL Total Protein 7.0 6.4 - 8.4 02/17 [facility] CHEM PANEL Albumin Lvl 3.5 3.5 - 5.0 02/17 [facility] CHEM PANEL AST 24 0 - 37 02/17 [facility] CHEM PANEL ALT 28 0 - 65 02/17 [facility] CHEM PANEL Bili Total 0.6 0.2 - 1.3 02/17 [facility] CHEM PANEL Alk Phos 94 39 - 136 02/17 [facility] CHEM PANEL Globulin 3.5 2.0 - 4.0 02/17 [facility] CHEM PANEL Lactic Acid 4.9 0.5 - 2.2 02/17 <sup>3</sup>R M H [place] Lvl esult Medical Comment: Center Critical Result(s) [...] HEMATOLOGY PT 12.7 12.0 - 02/17 14.7 [facility] HEMATOLOGY Platelet 205 133 - 450 02/17 [facility] HEMATOLOGY MCH 29.0 27.0 - 02/17 31.0 [facility] HEMATOLOGY MCHC 33.7 32.0 - 02/17 [place] 36.0 [facility] HEMATOLOGY RDW 13.6 11.5 - 02/17 14.5 [facility] HEMATOLOGY Hct 51.8 36.0 - 02/17 [place] 48.0 /2013 [facility] HEMATOLOGY MCV 86.2 80.0 - 02/17 [place] 98.0 /2013 [facility] HEMATOLOGY Hgb 17.4 12.0 - 02/17 16.0 [facility] HEMATOLOGY RBC 6.01 4.20 - 02/17 [place] 5.40 /2013 [facility] HEMATOLOGY MPV 11.5 7.4 - 10.4 02/17 [facility] HEMATOLOGY WBC 14.1 3.7 - 10.4 02/17 [facility] HEMATOLOGY PTT 21.8 22.9 - 02/17 <sup>5</sup>I [place] 35.8 nterpretive Medical Data: Heparin Center Therapeutic Range: 57 - 92 Seconds HEMATOLOGY Plt Morph Normal 02/17 [facility] (02/17/14 12:09 PM) [facility] HEMATOLOGY RBC Morph Normal 02/17 [facility] (02/17/14 12:09 PM) [facility] HEMATOLOGY Eosinophils # 0.1 0.0 - 0.5 02/17 [facility] HEMATOLOGY Basophils # 0.1 0.0 - 0.2 02/17 [facility] HEMATOLOGY Segs-Bands # 10.8 1.5 - 8.1 02/17 [facility] HEMATOLOGY Monocytes # 0.6 0.0 - 0.8 02/17 [facility] HEMATOLOGY Lymphocytes # 2.5 1.0 - 5.5 02/17 [facility] HEMATOLOGY Lymphocytes 17.5 20.0 - 02/17 40.0 [facility] HEMATOLOGY Segs 77.0 45.0 - 02/17 [place] 75.0 [facility] HEMATOLOGY Monocytes 4.3 2.0 - 12.0 02/17 [facility] HEMATOLOGY Basophils 0.4 0.0 - 1.0 02/17 [facility] HEMATOLOGY Eosinophils 0.8 0.0 - 4.0 02/17 [facility] Pathology Reports No Data Provided for This Section Diagnostic Reports No Data Provided for This Section Consultation Notes No Data Provided for This Section Discharge Summaries No Data Provided for This Section History and Physicals No Data Provided for This Section Vital Signs Vital Sign Value Date Comments Source Systolic (mm Hg) 102 06/26/2019 [facility] Citlali ro Diastolic (mm Hg) 59 06/26/2019 [facility] Ne uro Heart Rate 70 06/26/2019 [facility] Neuro Respitory Rate 16 06/26/2019 [facility] Neuro Height 157.48 cm 06/26/2019 [facility] Neuro Weight 58.182 06/26/2019 [facility] Neuro BMI Calculated 23.46 06/26/2019 [facility] Neuro Systolic (mm Hg) 143 01/15/2019 [facility] Cit[place]ali ro Diastolic (mm Hg) 76 01/15/2019 [facility] Ne uro Heart Rate 66 01/15/2019 [facility] Neuro Respitory Rate 16 01/15/2019 [facility] Neuro Height 157.48 cm 01/15/2019 [facility] Neuro Weight 56.818 01/15/2019 [facility] Neuro BMI Calculated 22.91 01/15/2019 [facility] Neuro Weight 55.455 10/29/2018 [facility] Neuro BMI Calculated 22.36 10/29/2018 [facility] Neuro Height 157.48 cm 10/29/2018 [facility] Neuro Systolic (mm Hg) 136 10/29/2018 [facility] [place] ro Diastolic (mm Hg) 86 10/29/2018 [facility] Ne uro Respitory Rate 16 10/29/2018 [facility] Neuro Heart Rate 71 10/29/2018 [facility] Neuro Weight 57.273 [facility]/27/[facility] BMI Calculated 23.86 09/27/2018 [facility] Neuro Height 154.94 cm 09/27/2018 [facility] Neuro Respitory Rate 16 09/27/2018 [facility] Systolic (mm Hg) 153 09/27/2018 [facility] [place] ro Diastolic (mm Hg) 85 09/27/2018 [facility] Ne uro Heart Rate 60 09/27/2018 [facility] Neuro Systolic (mm Hg) 195 02/18/2014 [facility] dical Center Diastolic (mm Hg) 92 02/18/2014 [facility] edical Center Respitory Rate 18 02/18/2014 [facility] Center Systolic (mm Hg) 159 02/18/2014 [facility] dical Center Diastolic (mm Hg) 91 02/[facility] Resp[facility] Rate 27 02/18/2014 [facility] Center Systolic (mm Hg) 144 02/18/2014 [facility] dical Center Diastolic (mm Hg) 77 02/18/2014 [facility] Respitory Rate 27 02/18/2014 [facility] Temperature Oral (F) 99.5 F 02/18/2014 [facility] Height 172.72 cm 02/17/2014 [facility] BMI Calculated 27.43 02/17/2014 [facility] Weight 81.818 02/17/2014 [facility] [place] Heart Rate 120 02/17/2014 [facility] [place] Encounters Location Location Encounter Encounter Reason Attending ADM DC Stat us Source Details Type Number For Provider Date Date Visit [facility]patient [id number] [place] 02/17 02/19 Rachel Koenigales /2013 [facility] MNA Outpatient [id number] Oscar 09/27 09/28 [facility] Neurology Kre /2018 Neuro [place] Outpatient [id number] Oscar 10/29 Active [facility] MNA Outpatient [id number] Oscar 10/29 10/30 [facility] Neurology Kre Neuro [place] Outpatient [id number] Oscar 12/10 Active [facility] [place] MNA Ambulatory [id number] Oscar 12/10 12/10 [facility] Neurology Pre-Reg Krell /2018 Neuro [place] Outpatient [id number] Oscar 01/15 Active [facility] [place] MNA Outpatient [id number] Oscar 01/15 01/16 [facility] Neurology Kre Neuro [place] Outpatient [id number] Oscar 01/29 Active [facility] [place] MNA Ambulatory [id number] Oscar 01/29 01/29 [facility] Neurology Pre-Reg Kre Neuro [place] Outpatient [id number] Oscar 02/04 Active [facility] [place] MNA Ambulatory [id number] Oscar 02/04 02/04 [facility] Neurology Pre-Reg Kre Neuro [place] MNA Outside [id number] 03/18 03/20 [facility] Neurology Medical /2018 Neuro [facility] Records Outpatient [id number] Oscar 06/25 Active [facility] [place] MNA Outpatient [id number] Oscar 06/25 06/26 [facility] Neurology Kre /2019 Neuro [place] Outpatient [id number] Oscar 11/06 Active [facility] [place] Outpatient [id number] Oscar 11/06 Active [facility] Procedures Procedure Code Date Perfomer Comments Source Back fusion [id number] [facility] Neuro,[facility] Assessment and Plan Assessment and Plan Date Source Extracted from:Title: Stroke Fellow H/P 02/19/2014 [facility] Author: Robert Martinez MD Date: 02/17/14 STROKE [...] left side. Her BP on arrival to 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 She is otherwise fully independent per [...] son in his 40s, hypertension, father of ND, mother of lung cancer. SOCIAL HISTORY: The [...] and vibration throughout. Coordination: no dysmetria on [id number]. Reflexes: R Biceps 2+, Triceps 2+, Brach ioradialis 2+, Patella 2+, Ankle 2+. L Biceps 2+, Triceps 2+, Brachioradialis 2+, Patella 2+, Ankle 2+. Toes downgoing bilaterally. Gait: not tested. NIH Stroke Scale (NIHSS) 1a. Level of Consciousness; 0-alert 1-drowsy 2-stupor 3-com atose 0 1b. LOC Questions month and age; 0-both 1-one 2-neither 1 (said she was 62) 1c. 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 Best Gaze; 0-nl 1-partial 2-forced gaze 0 3. Visual Quesada; 0-No visual loss. 1-P artial hemianopia 2-Complete 3-Bilateral 婼0 4. Facial Palsy; 0-none 1-minor 2-partial 3-complete 0 5. Motor - R arm; 0-No drift 1-Drift 2- Some antigravity 3-No antigravity 4-No movement 댰 0 6. Motor - R leg; 0-No drift 1-Drift 2- Some antigravity 3-No antigravity 4-No movement 蒽 0 7. Motor - L arm; 0-No drift 1-Drift 2- Some antigravity 3-No antigravity 4-No movement 𕻒 0 8. Motor - L leg; 0-No drift 1-Drift 2- Some antigravity 3-No antigravity 4-No movement ꦌ 0 9. Limb Ataxia; 0 absent 1 - 1limb 2 - 2 limbs 0 10. Sensory; 0-nl 1-partial loss 2-dense loss 0 11. Best Language; 0-nl 1-mild/mod 2-severe 3-mute 0 12. Dysarthria; 0-nl 1-mild/mod 2-severe x-untestable 0 13. 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 - Atherosclerosis of the carotid bifurca tions without significant stenosis by NASCET criteria. MRI head: no DWI abnormality. CSVI changes in the PWM. EKG: NSR ASSESSMENT: 1. Suspected TIA 68 yo RHF with a h/o HTN and a prior str morena in 2005 with no residual symptoms, p/w [...] symptomatic intracranial atherosclerosis as outlined in the SAMMPRIS protocol. DIFFERENTIAL DIAGNOSIS TIA vs. seizure vs. [...] Treat fevers and blood sugars aggressively. 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 [...] Emery Martinez MD Vascular Neurology fellow MSO# [id number] Pager# [phone] STROKE STAFF I have personally evaluated the [...] t evident in the left MCA, bilateral delivery professional and basilar artery. Laterally projecting 3 mm [...] cerebral hypoperfusion 401.9, HTN, malignant 288.6, leukocytosis [id number] Plan of Care No Data Provided for This Section Social History Social History Date Source Social History TypeResponse 02/18/2014 [facility] Substance Abuse Use: None Sexual Sexually [...] release medical records to: Chuck Pate(POA), Cristela Roman Dyer(Sister)2retried Family History No Data Provided for This Section Advance Directives No Data Provided for This Section Functional Status No Data Provided for This Section
--- OUTSIDE RECORDS SUMMARY | 2019-10-21 06:47 | XMS REPORT | Continuity of Care Document ---
:1945 Author Organization [facility] t Address [address] [place] [address] Care Team Providers Name Role Phone Nael Ceballos Attending Clinician Radha Betancourt Attending Clinician Radha Betancourt Admitting Clinician Problems Condition Condition Condition Status Onset Resolution Last Treating Co mments Source Name Details Category Date Date Treatment Clinician Date CVA Diagnosis Active 2013-042014-07-23 Mem oria 0-28 11:07:00 l CVA 00:00: Gonsalo 00 Active 02/17/2014 [facility] AMS. CVA Diagnosis Active 2013-042014-03-03 M emoria 0-28 15:36:00 l AMS. 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 accident accident l (CVA) (CVA) Outpati without without ent late late Clinics effect effect Forgetfuln Forgetfuln Problem Active [facility] ess ess [facility] Other Other Problem Active [facility] chronic chronic [facility] pain pain [facility] Diverticul Diverticul Problem Active [facility] itis itis [facility] Pain in Pain in Problem Active [facility] left left [facility] - shoulder shoulder [facility] a [facility] Right hip Right hip Problem Active [facility] pain pain [facility] Claudicati Claudicati Problem Active [facility] on in on in [facility] - peripheral peripheral Me moria vascular vascular l disease disease [facility] Allergic Allergic Problem Active [facility] rhinitis rhinitis [facility] IBS IBS Problem Active [facility] (irritable (irritable [place] - colon colon Memoria syndrome) syndrome) l [facility] Grief Grief Problem Active [facility] Left hand Left hand Problem Active [facility] pain pain [facility] Swelling Swelling Problem Active [facility] of left of left [facility] hand hand [facility]ics Hypokalemi Hypokalemi Problem Active [facility] Skin Skin Problem Active [facility] erythema erythema [facility] Abnormal Abnormal Problem Active [facility] renal renal [facility] function function [facility] a test test l [facility] Elevated Elevated Problem Active [facility] TSH TSH [facility] Imbalance Imbalance Problem Active [facility] Ovarian ca Ovarian ca Problem Active [facility] Allergic Allergic Diagnosis Active [facility] reaction reaction [facility] - to bee to bee [facility] sting sting l [facility] Cerebrovas Problem Resolve 2019-06-29 Memoria cular d 01:36:48 l accident [place] (disorder) Cerebrovas cular accident (disorder) Resolved Problem 06/29/2019 [facility] Diverticul Problem Resolve 2019-06-29 Memoria itis d 01:36:48 l (disorder) Celestino n Diverticul itis (disorder) Resolved Problem 06/29/2019 [facility] High Problem Resolve 2019-06-29 Blayne monty density d 01:36:48 l lipoprotei High Celest[place] n n density (substance lipoprotei ) n (substance ) Resolved Problem 06/29/2019 [facility] Hypertensi Problem Resolve 2019-06-29 Memoria ve d 01:36:48 l disorder, [place] systemic Hypertensi arterial ve (disorder) disorder, systemic arterial (disorder) Resolved Problem 06/29/2019 [facility] Dementia Problem Active 2019-06-29 Mem oria (disorder) 01:36:48 l Dementia Celestino n (disorder) Active Problem 06/29/2019 [facility] Depressive Problem Active 2019-06-29 M emoria disorder 01:36:48 l (disorder) Cel[place] n Depressive disorder (disorder) Active Problem 06/29/2019 [facility] Diabetes Problem Active 2019-06-29 Mem oria mellitus 01:36:48 l type 2 Diabetes Celest[place] n (disorder) mellitus type 2 (disorder) Active Problem 06/29/2019 [facility] Hyperlipid Problem Active 2019-06-29 M emoria emia 01:36:48 l (disorder) Cel[place] n Hyperlipid emia (disorder) Active Problem [facility]29[facility]2019 [facility] Lumbar Problem Active 2019-06-29 Memor ia radiculopa 01:36:48 l thy Lumbar [place] (disorder) radiculopa thy (disorder) Active Problem 06/29/2019 [...] Me moria MENTAL 15:36:00 l STATUS ALTERED [place] MENTAL STATUS Active [facility] Allergies, Adverse Reactions, Alerts Allergy Allergy Status Severity Reaction(s) Onset Inactive Treating Comm ents Source Name Type Date Date Clinician codeine Adverse Active Info Not [facility] Reaction Available [facility] PCN Adverse Active Info Not [facility] Reaction Available [facility] bee Adverse Active Info Not [facility] sting Reaction Available [facility] codeine codeine Active [facility] penicill penicill Active Memori a in in [facility] Social History Social Habit Start Date Stop Date Quantity Comments Source Social History 2014-02-18 2014-02-18 [facility] Ashkan mackenzie 06:59:10 06:59:10 Medications Ordered Filled Start Stop Current Ordering Indication Dosage Frequency Signature Comments Components Source Medication Medication Date Date Medication? Clinician (SIG) Name Name Blood Blood Yes Lorraine as [facility] Glucose Glucose 6-25 Mill[facility] directed [facility] - Test Test 00:00: Memoria 00 [facility] Blood Blood 2019-0 Yes Lorraine as [facility] Glucose Glucose 6-25 [place] directed [facility] - Monitor Monitor 00:00: Memoria System System 00 [facility] Lancets Lancets Yes Lorraine as [facility] 6-25 Millender directed [facility] - 00:00: Memoria 00 [facility] Aspirin 81 2019-0 Yes 81 mg = 1 Me moria MG Enteric 3-05 tab, PO, l Coated 22:38: Daily, # [place] Tablet 00 90 tab, 3 Refill(s) donepezil 5 2019-0 Yes = 1 tab, Me moria mg oral 3-05 PO, l tablet 22:09: Bedtime, # Juju nn 00 30 tab, 2 Refill(s), Pharmacy: [id number] Mupirocin Mupirocin 2019-0 2020- No Lorraine [address] 05-14 Millender applicatio Eboni es - 00:00: 00:00 n to Memoria 00 :00 affected l area Outpati ent Clinics Metformin 2019-0 Yes 500 mg, Memor ia 9-25 PO, 0 l 16:58: Refill(s) Effexor 2019-0 Yes 75 mg, PO, Blayne monty 9-25 0 l 16:58: Refill(s) atorvastati 0 Yes 50 mg, PO, Memoria n 9-25 Daily, 0 l 16:58: Refill(s) pantoprazol Yes 40 mg = 2 M emoria e 20 mg 9-25 tab, PO, l oral 16:58: Daily, # [place] enteric 00 60 tab, 0 coated Refill(s) tablet eszopiclone 0 Yes 3 mg = 1 Me moria 3 mg oral 9-25 tab, PO, l tablet 16:58: Bedtime, 00 PRN for insomnia, 0 Refill(s) Donepezil 2018- Yes 5 mg = 1 Blayne monty hydrochlori 7-09 tab, PO, l de 5 MG 17:24: Bedtime, # Huan polk Oral Tablet 00 30 tab, 3 [Aricept] Refill(s), Pharmacy: [email or web address] [id number] Amlodipine 2019-0 Yes 10 mg = 1 Me moria 10 MG Oral 6-07 tab, PO, l Tablet 20:42: Daily, # [place] [Norvasc] 00 30 tab, 1 Refill(s) gabapentin 2018-0 Yes 100 mg = 1 M emoria 100 MG Oral 6-07 cap, PO, l Capsule 20:42: BID, 0 Refill(s) Effexor 2019-0 Yes 75 mg, PO, Blayne monty 6-07 Daily, 0 l 20:11: Refill(s) Tramadol 2018-0 Yes 50 mg, PO, Mem oria 6-07 Q4-6H, PRN l 20:11: Pain, # 20 [place] 00 tab, 0 Refill(s) Lorazepam Yes 0 Memoria 6-07 Refill(s) l 20:11: [place] 00 Omeprazole 2013-04 No 40 mg, Memor ia 0-30 Route: [...] 0-30 (Same as: l Capsule 05:00: Neurontin) Herm felicitas [Neurontin] 00 Simvastatin 2013-04 No Notes: Blayne monty 0-30 [...] tab, PO, l tablet 19:47: TID, for [place] 00 dizziness, # 60 tab, 0 Refill(s) losartan [...] tab, PO, l Tablet 19:47: Daily, # [place] [Zetia] 00 30 tab, 0 Refill(s) gabapentin 2013-04 Yes 300 mg = 1 M emoria 300 MG Oral 0-29 cap, PO, l Capsule 19:47: TID, # 90 Juju nn [Neurontin] 00 cap, 0 Refill(s) clopidogrel 2013-04 No Notes: Blayne monty 0-29 (Same As: l 14:00: Plavix) [place] Aspirin 325 2013-04 No Notes: (Do Memoria [...] a 0-29 (Same as: l 06:30: Ativan) [place] 00 Loratadine 2013-04 No Notes: 1 Mem oria 0-29 hr before l 05:28: meals [place] 00 (Same as: Claritin) Ondansetron 2013-04 No 4 mg, Memor ia 0-29 Route: l 04:19: IVP, Drug [place] 00 form: INJ, ONCE, Dosing Weight 81.818, kg, Priority: STAT, Start date: 02/17/14 23:19:00, Stop date: 02/17/14 23:19:00 Benadryl 2013-04 No 25 mg, Memoria 0-29 Route: l 03:50: IVP, ONCE, [place] 00 Dosing Weight 81.818, kg, PRN Itching, Start date: 02/17/14 22:50:00 Meclizine 2013-04 No 0 Memoria 0-29 Refill(s) l 03:43: [place] 00 Losartan 2013-04 No 0 Memoria 0-29 Refill(s) l 03:43: Promethazin 2013-04 No 0 Memori a e 0-29 Refill(s) l 03:43: [place] 00 Zetia 2013-04 No 0 Memoria 0-29 Refill(s) l 03:43: Rogaine 2013-04 No 0 Memoria 0-29 Refill(s) l 03:42: [place] 00 Lunesta 2013-04 No 0 Memoria 0-29 Refill(s) l 03:42: [place] 00 Lipitor 2013-04 No Notes: Memoria 0-29 Same as l 02:00: Lipitor Saline 2013-04 No Notes: Memoria Flush 0.9% 0-29 (Same as: l 02:00: BD Posiflush) Famotidine 2013-04 No Notes: Memor ia 0-29 (Same as: l 02:00: Pepcid) Tylenol 2013-04 No 650 mg, Memoria 0-28 Route: PO, l 23:43: Drug form: [place] 00 TAB, ONCE, Dosing Weight 81.818, kg, [...] tab, PO, l Oral Tablet 22:35: QID-Before [place] [Reglan] 00 Meals, as needed for gastropare [...] Memoria porcine 0-28 porcine l 21:00: heparin [place] 00 Saline 2013-04 No 10 ml, Memoria Flush 0.9% 0-28 Route: l 20:43: IVP, Drug Form: INJ, Dosing Weight 81.818, kg, PRN, PRN Line Flush, Start date: 02/17/14 15:43:00, Duration: 30 day, Stop date: 03/19/14 14:42:00 Labetalol 2013-04 No 105mmHg Blayne monty 0-28 l 20:43: [place] 00 Acetaminoph 2013-04 No Notes: Do M emoria en 0-28 not exceed l 20:43: 4 gm/day. [place] 00 (Same as: Tylenol) Sodium 2013-04 No 1,000 mL, Memori a Chloride 0-28 Rate: 100 l 0.154 20:43: ml/hr, [place] MEQ/ML 00 Infuse Injectable over: 10 Solution hr, Route: IV, Dosing Weight 81.818 kg, Total Volume: 1,000, Start date: 02/17/14 15:43:00, Duration: 30 day, Stop date: 03/19/14 15:42:00 Plavix 2013-04 No Notes: ( Memoria 0-28 Same as: l 20:42: Plavix) [place] aspirin 2013-04 No Notes: Memoria 0-28 Take with l 20:42: food. [place] 00 Sodium 2013-04 No 1,000 mL, Memori a Chloride 0-28 1,000 l 0.154 20:16: ml/hr, [place] MEQ/ML 00 Infuse Injectable Over: 1 Solution hr, Route: IV, 1,000, Drug form: INJ, ONCE, Priority: STAT, Dosing Weight 81.818 kg, Start date: 02/17/14 15:16:00, Duration: 1 doses or times, Stop date: 02/17/14 15:16:00 iodixanol 2013-04 No Special Memor ia 0-28 Instructio l 18:55: ns: Dose = [place] 00 2.2ml/kg, Max dose = 150ml -- "To be infused by Radiology Staff ONLY" iodixanol 2013-04 No Special Memor ia 0-28 Instructio l 18:51: ns: Dose = [place] 00 2.2ml/kg, Max dose = 150ml -- "To be infused by Radiology Staff ONLY" Sodium 2013-04 No 1,000 mL, Memori a Chloride 0-28 1,000 l 0.154 17:51: ml/hr, [place] MEQ/ML 00 Infuse Injectable Over: 1 Solution hr, Route: IV, 1,000, Drug form: INJ, ONCE, Priority: STAT, Dosing Weight 81.818 kg, Start date: 02/17/14 12:51:00, Duration: 1 doses or times, Stop date: 02/17/14 12:51:00 Saline 2013- No Notes: Memoria Flush 0.9% 0-28 (Same as: l 16:53: BD [place] Posiflush) Ativan Ativan Yes Lorraine [address] [facility] Lunesta Lunesta Yes Lorraine [address] [facility] [facility] Millender immediatel Luke s - y before Memoria bedtime l [facility] Donepezil Donepezil Yes Lorraine [address] [facility] [facility] HCl HCl Millender at bedtime Luke s - Memoria l [facility] ent Clinics EpiPen EpiPen Yes Lorraine as [facility] 2-Ney 2-Ney Millender directed [facility] - [facility] Bactrim DS Bactrim DS Yes Lorraine [address] [facility] Millender [facility] - [facility] Effexor XR Effexor XR Yes Lorraine [address] [facility] Metoprolol Metoprolol Yes Lorraine [address] Tartrate Tartrate [place] - [facility] Vitamin D Vitamin D Yes Lorraine [address] [facility] [facility] Millender [facility] - [facility]ics Atorvastati Atorvastati Yes Lorraine [address] [facility] n Calcium n Calcium Millender in evening [facility] Metformin Metformin Yes Lorraine [address] [facility] HCl HCl Millender [facility] Amlodipine Amlodipine Yes Lorraine [address] [facility] Besylate Besylate [place] - [facility] Cardura Cardura Yes Lorraine [address] [facility] Millender in evening [facility] s - [facility] Simvastatin Simvastatin Yes Lorraine [address] [facility] [facility] Millender in the [facility] - evening [facility] Bentyl Bentyl Yes Lorraine [address] [facility] [facility] Millender [facility] - [facility] Protonix Protonix Yes Lorraine [address] [facility] l Outpati ent Clinics Protonix Protonix Yes Lorraine [address] [facility] l Outpati ent Clinics Lotrisone Lotrisone Yes Lorraine [address] [facility] [facility] Millender applicatio Luke s - n to Memoria affected l area Outpati ent Clinics Bactroban Bactroban Yes Lorraine [address] [facility] [facility] Millender applicatio Luke s - n to Memoria affected l area Outpati ent Clinics Gabapentin Gabapentin Yes Lorraine [address] [facility] Immunizations Ordered Filled Immunization Date Status Comments [facility] e Immunization Name Name TDAP > 7 TDAP > 7 2019-05-30 [facility]pleted [facility]-Adacel 00:00:00 [facility] Outpatient [facility]ics Vital Signs Vital Name Observation Time Observation Value Comments Source Systolic (mm Hg) 2019-06-26 21:51:00 Blayne rial [place] Diastolic (mm Hg) 2019-06-26 21:51:00 Mem orial [place] Heart Rate 2019-06-26 21:51:00 Memorial [place] Respitory Rate 2019-06-26 21:51:00 Memori al [place] Height 2019-06-26 21:51:00 157.48 cm [facility] [place] Weight 2019-06-26 21:51:00 [facility] [place] BMI Calculated 2019-06-26 21:51:00 Memori al [place] Systolic (mm Hg) 2019-01-15 16:55:00 Blayne rial [place] Diastolic (mm Hg) 2019-01-15 16:55:00 Mem orial [place] Heart Rate 2019-01-15 16:55:00 [facility] [place] Respitory Rate 2019-01-15 16:55:00 Memori al [place] Height 2019-01-15 16:55:00 157.48 cm [facility] [place] Weight 2019-01-15 16:55:00 [facility] [place] BMI Calculated 2019-01-15 16:55:00 Memori al [place] Weight 2018-10-29 17:07:00 [facility] [place] BMI Calculated 2018-10-29 17:07:00 Memori al [place] Height 2018-10-29 17:07:00 157.48 cm [facility] [place] Systolic (mm Hg) 2018-10-29 17:07:00 Blayne rial [place] Diastolic (mm Hg) 2018-10-29 17:07:00 Mem orial [place] Respitory Rate 2018-10-29 17:07:00 Memori al [place] Heart Rate 2018-10-29 17:07:00 [facility] [place] Weight 2018-09-27 20:03:00 [facility] [place] BMI Calculated 2018-09-27 20:03:00 Memori al [place] Height 2018-09-27 20:03:00 154.94 cm [facility] [place] Respitory Rate 2018-09-27 20:03:00 Memori al [place] Systolic (mm Hg) 2018-09-27 20:03:00 Blayne rial [place] Diastolic (mm Hg) 2018-09-27 20:03:00 Mem orial [place] Heart Rate 2018-09-27 20:03:00 Memorial [place] Systolic (mm Hg) 2014-02-18 23:00:00 Blayne rial [place] Diastolic (mm Hg) 2014-02-18 23:00:00 Mem orial [place] Respitory Rate 2014-02-18 23:00:00 Memori al [place] Systolic (mm Hg) 2014-02-18 22:00:00 Blayne rial [place] Diastolic (mm Hg) 2014-02-18 22:00:00 Mem orial [place] Respitory Rate 2014-02-18 22:00:00 Memori al [place] Systolic (mm Hg) 2014-02-18 21:00:00 Blayne rial [place] Diastolic (mm Hg) 2014-02-18 21:00:00 Mem orial [place] Respitory Rate 2014-02-18 21:00:00 Memori al [place] Temperature Oral (F) 2014-02-18 03:12:00 99.5 F [facility] [place] Height 2014-02-17 16:42:00 172.72 cm [facility] [place] BMI Calculated 2014-02-17 16:42:00 Memori al [place] Weight 2014-02-17 16:42:00 [facility] [place] Heart Rate 2014-02-17 16:42:00 [facility] [place] Procedures Procedure Date / Time Performed Performing Clinician Sourc e Back fusion [facility] [place] Encounters Start End Encounter Admission Attending Care Care Encounter Source Date/Time Date/Time Type Type Clinicians Facility Department ID 2019-10-16 2019-10-16 [facility] [id number] [facility] [address] 08:38:00 08:38:[address] [facility] Medicine Medicine Outpati ent Clinics 2019-10-12 2019-10-12 [facility] [id number] 18:27:00 18:27:00 t [facility] Medicine Outpati ent Clinics 2019-10-03 2019-10-03 [facility] [id number] 10:20:00 10:20:00 [facility] Medicine Outpati ent Clinics 2019-06-26 2019-06-26 Outpatient [id number] 15:00:00 23:59:59 Oscar Nayak 2019-06-03 2019-06-03 [facility] [id number] 03:07:00 03:07:00 [facility] Medicine Outpati ent Clinics 2019-05-30 2019-05-30 [facility] [id number] 15:00:00 15:00:00 [facility] Medicine Outpati ent Clinics 2019-05-19 2019-05-19 [facility] [id number] 19:21:00 19:21:00 [facility] Medicine Outpati ent Clinics 2019-05-14 2019-05-14 [facility] [id number] 00:12:00 00:12:00 [facility] Medicine Medicine Outpati ent Clinics 2019-05-13 2019-05-13 [facility] [id number] 23:58:00 23:58:00 t [facility] Medicine Outpati ent Clinics 2019-05-13 2019-05-13 [facility] [id number] 13:45:00 13:45:00 [facility] Medicine Outpati ent Clinics 2019-03-18 2019-03-19 Outpatient MISCHER [facility] [id number] 12:48:37 23:59:59 00 2019-02-04 2019-02-04 Outpatient Tucker, MHMISCHER MHMISCHER [id number] 13:00:00 13:00:00 Oscar 05 Nael 2019-01-29 2019-01-29 Outpatient Tucker, MHMISCHER MHMISCHER [id number] 14:15:00 14:15:00 Oscar Nael 2019-01-15 2019-01-15 Outpatient Tucker, MHMISCHER MHMISCHER [id number] 11:30:00 23:59:59 Oscar 03 Nael 2018-12-10 2018-12-10 Outpatient Tucker, MHMISCHER MHMISCHER [id number] 11:15:00 11:15:00 Oscar Nael 2018-10-29 2018-10-29 Outpatient Tucker, MHMISCHER MHMISCHER [id number] 11:45:00 23:59:59 Oscar Nael 2018-09-27 2018-09-27 Outpatient Tucker, MHMISCHER MHMISCHER [id number] 14:45:00 23:59:59 Oscar 00 [facility] 2014-02-17 2014-02-18 Outpatient HETAL Betancourt [facility] [id number] 11:41:00 21:00:00 Susannah Garcia Results Test Description Test Time Test Comments Results Result Sourc e Comments SPECIAL CHEMISTRY 2014-02-18 6.6 Memoria l 20:27:20 [place] LIPIDS 2014-02-18 3.80 [facility] 17:20:44 [place] LIPIDS 2014-02-18 167 Memorial 17:20:44 [place] LIPIDS 2014-02-18 44 Memorial 17:20:44 [place] LIPIDS 2014-02-18 182 Memorial 17:20:44 [place] LIPIDS 2014-02-18 36 Memorial 17:20:44 [place] LIPIDS 2014-02-18 87 Memorial 17:20:44 [place] ANEMIA STUDY 2014-02-18 34 Memorial 10:15:00 [place] ANEMIA STUDY 2014-02-18 342 Memorial 10:15:00 [place] ANEMIA STUDY 2014-02-18 227 Memorial 10:15:00 [place] ANEMIA STUDY 2014-02-18 115 Memorial 10:15:00 [place] ANEMIA STUDY 2014-02-18 97 Memorial 10:15:00 [place] CHEM PANEL 2014-02-17 1.9 Memorial 20:32:24 [place] URINE AND STOOL 2014-02-17 None Seen Memorial 19:18:07 (02/17/14 2:18 [place] PM) URINE AND STOOL 2014-02-17 None Seen Memorial 19:18:07 (02/17/14 2:18 [place] PM) URINE AND STOOL 2014-02-17 19:18:07 Test Item Value Reference Range Interpretation Comme nts UA Spec Grav (test code = UA Spec Grav) 1.020 1 [facility] [id number] 19:18:07Yellow *NA*(02/17/14 2:18 PM) [facility] [id number] 19:18:07Clear (02/17/14 2:18 PM) [facility] [id number] 19:18:07Negative (02/17/14 2:18 PM) [facility] [id number] 19:18:07Negative (02/17/14 2:18 PM) [facility] [id number] 19:18:070.2[facility] [id number] 19:18:07Negative (02/17/14 2:18 PM)[facility] [id number] 19:18:07Negative *NA*(02/17/14 2:18 PM)[facility] [id number] 19:18:07Negative (02/17/14 2:18 PM)[facility] [id number] 19:18:07Negative *NA*(02/17/14 2:18 PM)[facility] [id number] 19:18:07Negative (02/17/14 2:18 PM)[facility] [id number] 19:18:07 Test Item Value Reference Range Interpretation Comments UA pH (test code = UA pH) 6.5 1 5.0-8.0 [facility]annCARDIAC [id number] 17:09:003.4[facility]ann[facility]ARDIAC [id number] 17:09:000.07[facility]ann[facility]ARDIAC [id number] 17:09:00 123[facility]annCARDIAC [id number] 17:09:002.8[facility] HermannCHEM [id number] 17:09:0028[facility] HermannCHEM [id number] 17:09:001.4 [facility]annCHEM [id number] 17:09:[address]kwyooj HermannCHEM PANEL 2014-02-17 17:09:0013[facility] HermannCHEM [id number] 17:09:009[facility] HermannCHEM [id number] 17:09:0016.8[facility]annCHEM [id number] 17:09:008.8[facility] HermannCHEM [id number] 17:09:0023[facility] HermannCHEM [id number] 17:09:23419Hcuasdyh HermannCHEM [id number] 17:09:95742 [facility]annCHEM [id number] 17:09:003.8[facility] HermannCHEM PANEL 2014-02-17 17:09:001.0[facility] HermannCHEM [id number] 17:09:007.0[facility] HermannCHEM [id number] 17:09:003.5[facility] HermannCHEM [id number] 17:09:0024[facility] HermannCHEM [id number] 17:09:0028[facility] HermannCHEM [id number] 17:09:000.6[facility] HermannCHEM [id number] 17:09:0094 [facility]annCHEM [id number] 17:09:003.5[facility] HermannCHEM PANEL 2014-02-17 17:09:004.9[facility] [id number] 17:09:000.95[facility] [id number] 17:09:00 Test Item Value Reference Range Interpretation Comments PT (test code = PT) 12.7 s 12.0-14.7 Memorial [id number] 17:09:32359Nvqyvoaz HermannHEMATOLOGY 2014-02-17 17:09:00 Test Item Value Reference Range Interpretation Comments MCH (test code = MCH) 29.0 pg 27.0-31.0 Memorial [id number] 17:09:0033.7[facility] HermannHEMATOLOGY 2014-02-17 17:09:0013.6[facility] [id number] 17:09:0051.8[facility] [id number] 17:09:0086.2[facility]orial [id number] 17:09:0017.4[facility] [id number] 17:09:006.01[facility] [place] [id number] 17:09:0011.5[facility] [id number] 17:09:00 14.1[facility] [id number] 17:09:00 Test Item Value Reference Range Interpretation Comments PTT (test code = PTT) 21.8 s 22.9-35.8 Memorial [id number] 17:09:00Normal (02/17/14 12:09 PM)[facility] [id number] 17:09:00Normal (02/17/14 12:09 PM)[facility] [place] [id number] 17:09:000.1[facility] MvuvqbxBLHWYCBPOS4064-82-44 17:09:000.1 [facility] KdlojfhDCPJVTBZCK7029-71-29 17:09:0010.8[facility]ann[facility] 2014-02-17 17:09:000.6[facility] SgwbyavHGKFKXMZUR6821-42-49 17:09:002.5[facility] WfjbfxpRMRUVUTKKQ0144-83-88 17:09:0017.5[facility] LaovmaiSEPNTVYPJD4898-59-13 17:09:0077.0[facility] CgdyuacVZPMOWETCN5394-73-98 17:09:004.3[facility] Gonsalo [id number] 17:09:000.4MeAd[facility] TexasTepepqkAHKYTLWASN2758-16-97 17:09:000.8 [facility]
--- OUTSIDE RECORDS SUMMARY | 2019-10-21 06:47 | XMS REPORT ---
[...] type Problem Vitamin D deficiency E55.9 Active Problem [...] reaction F43.21 Active Problem Grief F43.21 Active Problem Imbalance R26.89 Active Problem Gastro-esophageal reflux K21.9 Act marlen Problem Skin erythema L53.9 Active Problem Hypokalemia E87.6 Active Problem Abnormal renal function test R94.4 Active Problem Elevated TSH R79.89 Active Problem Right leg pain M79.604 Active Problem Hypertension, unspecified type I10 Active Problem Diverticulitis of large intestine K57.32 Active without perforation or abscess without bleeding Problem Diverticulitis K57.92 Active Problem Memory loss R41.3 Active Problem Right hip pain M25.551 Active Problem Abdominal pain, unspecified R10.9 Active abdominal location Problem Low back pain M54.5 Active Problem Other chronic pain G89.29 Active Medications No Known Medications Results No Known Results Summary Purpose eClinicalWorks Submission
--- OUTSIDE RECORDS SUMMARY | 2019-10-21 06:47 | XMS REPORT ---
[...] End Status Dosage System Date Date Amlodipine [facility] 22376865381 10 MG Orally Active 1 ta blet Besylate Once a day Protonix [facility] 67059303249 20 MG Orally Active 1 tabl et Once a day Lunesta [facility] 98272661422 3 MG Orally Active 1 tablet Once a day immediately before bedtime Mupirocin [facility] 20342236414 2 % Externally Active 1 a pplication Two times a day to affec yossi area Protonix [facility] 35743294732 40 MG Orally Active 1 tabl et Once a day EpiPen 2-Ney [facility] [address]-49 0.3 MG/0.3ML Active not defined (1:1000) Intramuscular Atorvastatin [facility] 41403598489 20 Orally Once Active 1 tablet in Calcium a day evening Donepezil HCl [facility] 82950569134 5 MG Orally Active 1 tablet at Once a day bedtime Simvastatin [facility] 50826121833 40 MG Orally Active 1 t ablet in Once a day the evening Bactrim DS [facility] 14057235542 800-160 MG Active 1 tabl et Orally Twice a day Cardura [facility] 64486373824 2 MG Orally Active 1 tablet in Once a day evening Vitamin D [facility] 59042694980 2000 UNIT Active 1 tablet Orally Once a day Lotrisone [facility] 42338749643 1-0.05 % Active 1 applica tion Externally to affected Twice a day area Metformin HCl [facility] 97952799343 500 Orally Active 1 t ablet Twice a day Metoprolol [facility] 51104156581 50 MG Orally Active 1 ta blet Tartrate Twice a day Effexor XR [facility] 91366303495 75 MG Orally Active 3 ca psules Once a day Bactroban [facility] 60651049747 2 % Externally Active 1 a pplication Three times a to affecte d day area Gabapentin [facility] [address]-35 100 mg Orally Active 1 capsule Twice a day as needed for pain Ativan [facility] 27551627701 1 MG Orally Active 1 tablet Three times a day Bentyl [facility] 14959055485 20 MG Orally Active 1 table t Four times a day Results Name Result Date Reference Range Unit Abnormali ty Flag HEMOGLOBIN A1C ----A1C 5.6% 20191003 GLUCOSE FINGER ----Result 108--RBS 20191003 Summary Purpose eClinicalWorks Submission
--- OUTSIDE RECORDS SUMMARY | 2019-10-21 06:48 | XMS REPORT ---
:1945 [facility] Providers Name Role Phone Lorraine [...] abscess without bleeding Problem Diverticulitis K57.92 Active Assessment Allergic reaction to bee sting T63.441A Active Problem Memory loss R41.3 Active Problem Right hip pain M25.551 Active Problem Abdominal pain, unspecified R10.9 Active abdominal location Problem Low back pain M54.5 Active Problem Other chronic pain G89.29 Active Medications Medication Code Code Instructions Start End Status Dosage System Date Date Metoprolol NDC 88829409306 50 MG Orally Active 1 ta blet Tartrate Twice a day Gabapentin ND 91216642418 100 mg Orally Active 1 c apsule Twice a day as needed for pain Protonix ND 22138782998 20 MG Orally Active 1 tabl et Once a day Mupirocin ND 25047761328 2 % Externally Active 1 a pplication Two times a day to affec yossi area Blood Glucose ND 88293189012 - In Vitro pt September Active as directed Test testing bs once 25, daily 2019 Bactroban [facility] 31525598318 2 % Externally Active 1 a pplication Three times a to affecte d day area Effexor XR ND 49320620729 75 MG Orally Active 3 ca psules Once a day Atorvastatin ND 20036992057 20 Orally Once Active 1 tablet in Calcium a day evening EpiPen 2-Ney [facility] [address]-72 0.3 MG/0.3ML Active as directed (1:1000) Intramuscular as directed Bactrim DS [facility] 00854257710 800-160 MG Active 1 tabl et Orally Twice a day Simvastatin ND 33829674164 40 MG Orally Active 1 t ablet in Once a day the evening Cardura ND 94054970134 2 MG Orally Active 1 tablet in Once a day evening Donepezil HCl ND 43021393087 5 MG Orally Active 1 tablet at Once a day bedtime Bentyl [facility] 44752955310 20 MG Orally Active 1 table t Four times a day Protonix [facility] 40449721380 40 MG Orally Active 1 tabl et Once a day Blood Glucose [facility] 08799101230 w/Device as September Active as directed Monitor System directed pt 25, testing bs once 2020 daily Lancets ND 05658559888 - as directed September Active as dir ected pt testing bs 25, once daily 2019 Vitamin D ND 49146014185 2000 UNIT Active 1 tablet Orally Once a day Amlodipine ND 91028037114 10 MG Orally Active 1 ta blet Besylate Once a day Ativan ND 54638694935 1 MG Orally Active 1 tablet Three times a day Metformin HCl ND 02803192401 500 Orally Active 1 t ablet Twice a day Lunesta [facility] 44172435576 3 MG Orally Active 1 tablet Once a day immediately before bedtime Lotrisone [facility] 31616418751 1-0.05 % Active 1 applica tion Externally to affected Twice a day area Results No Known Results Summary Purpose eClinicalWorks Submission
[2019-10-21 07:04] LABS: Absolute Lymphocytes (CBC) 3.3 K/uL (0.7-4.9); Basophils % 0.9 % (0-1.3); Hematocrit 47.2 % (36.0-45.0); Lymphocytes % 29.6 % (15.3-44.8); MPV 10.1 fL (7.6-11.3); RBC Red Blood Cell Count 5.37 M/uL (3.86-4.86)
[2019-10-21 07:05] LABS: Protime INR 0.89
[2019-10-21 07:22] LABS: ALT/SGPT 32 U/L (12-78); AST/SGOT 39 U/L (15-37); Albumin 4.2 g/dL (3.4-5.0); Alkaline Phosphatase 87 U/L (45-117); BUN Blood Urea Nitrogen 13 mg/dL (7-18); Bicarbonate 22 mmol/L (21-32); Bilirubin Direct 0.1 mg/dL (0-0.2); Bilirubin Total 0.4 mg/dL (0.2-1.0); Glucose Level 153 mg/dL (74-106); NT PRO-BNP 118 pg/mL (<450); Potassium 3.2 mmol/L (3.5-5.1); Protein, Total 8.2 g/dL (6.4-8.2); Sodium Level 142 mmol/L (136-145); Troponin (Emerg Dept Use Only) < 0.02 ng/mL (0.0-0.045)
[2019-10-21 07:24] LABS: Magnesium 1.3 mg/dL (1.8-2.4)
[2019-10-21] MEDS ORDERED: Magnesium Sulfate 2gm IVPB 2 G/50 ML BAG IV ONE (07:35)
[2019-10-21] MEDS ORDERED: POTASSIUM CL SA 10 MEQ TAB PO ONE (07:37)
[2019-10-21] MEDS ORDERED: NA CHLORIDE 0.9% 500 ML ONE (07:37)
--- NOTE | 2019-10-21 07:43 | RAD REPORT ---
EXAM DESCRIPTION: CT - Head Brain Wo Cont - 10/21/2019 6:55 am CLINICAL HISTORY: Numbness COMPARISON: 2019 TECHNIQUE: Computed axial tomography of the head was obtained. IV contrast was not requested. All CT scans are performed using dose optimization technique as appropriate and may include automated exposure control or mA/KV adjustment according to patient size. FINDINGS: An intracranial bleed is not seen . The ventricles are normal in caliber. No extra-axial fluid collection is noted. Small low-density areas within the basal ganglia appear chr onic. Basal ganglia calcifications are noted. Mild to moderate low-density areas within periventricul ar, deep subcortical white matter probably ischemic changes secondary to small vessel disease Fluid within the sinuses/ mastoids is not seen. IMPRESSION: No acute intracranial abnormality is seen. If patient has symptoms to suggest an acute i nfarct MRI would be recommended
[2019-10-21] MEDS ORDERED: ONDANSETRON 4 MG/2 ML VIAL ONE (07:50)
--- NOTE | 2019-10-21 07:58 | RAD REPORT ---
EXAM DESCRIPTION: Kym Single View10/21/2019 6:58 am CLINICAL HISTORY: Hypertension COMPARISON: 2018 FINDINGS: The lungs appear clear of acute infiltrate. The heart is normal size IMPRESSION: No acute abnormalities displayed
--- NOTE | 2019-10-21 08:22 | ER ---
Nurse's Notes [facility] Name: Amber Acosta Age: 73 yrs Sex: Female : 1945 Arrival Date: 10/21/2019 Time: 06:38 Bed 4 Private MD: Diagnosis: Volume depletion;Hypomagnesemia;Hypokalemia Presentation: 10/20 06:47 Chief complaint: EMS states: Patient woke up this morning with a tingling sensation in ao her finger tips and toes. Pt VAN was negative and denies any stroke symptoms such as blurry vision or any deficits. Coronavirus screen: Proceed with normal triage. Ebola Screen: Patient negative for fever greater than or equal to 101.5 degrees Fahrenheit, and additional compatible Ebola Virus Disease symptoms Patient denies exposure to infectious person. Patient denies travel to an Ebola-affected area in the 21 days before illness onset. Initial Sepsis Screen: Does the patient meet any 2 criteria? No. Patient's initial sepsis screen is negative. Does the patient have a suspected source of infection? No. Patient's initial sepsis screen is negative. Risk Assessment: Do you want to hurt yourself or someone else? Patient reports no desire to harm self or others. 06:47 Method Of Arrival: EMS: [facility] ao 06:47 Acuity: IVETTE 3 ao 06:59 Onset of symptoms is unknown. ao Historical: - Allergies: 06:52 Bees; ao 06:52 Codeine; ao 06:52 hydrocodone bitartrate; ao 06:52 Iodinated Contrast Media - IV Dye; ao 06:52 Levofloxacin; ao 06:52 METRONIDAZOLE; ao 06:52 PENICILLINS; ao 06:52 SHELLFISH; ao 06:52 sulfamethoxazole; ao 06:52 TRIMETHOPRIM; ao 06:52 Wasps; ao - Home Meds: 06:52 amlodipine 10 mg tab [Active]; donepezil 5 mg Oral TbDL 1 tab once daily [Active]; ao atorvastatin 50mg Oral 1 tab AT NIGHT [Active]; doxazosin 2 mg Oral tab 1 tab once daily [Active]; gabapentin 100 mg Oral cap 3 caps 3 times per day [Active]; Effexor 3 tabs Oral 75 mg daily [Active]; Lunesta 3 mg Oral tab 1 tab once daily [Active]; lorazepam 1 mg Oral tab 1 tab once daily for Anxiety [Active]; Ecotrin 325 mg Oral TbEC 1 tab once daily [Active]; metoprolol tartrate 50 mg Oral tab 1 tab 2 times per day [Active]; pantoprazole 20 mg Oral TbEC 1 tab once daily [Active]; metformin 500 mg Oral tab 1 tab 2 times per day [Active]; - PMHx: 06:52 Alzheimers; Anxiety; CAD; CVA; Depression; Diabetes - NIDDM; High Cholesterol; ao Hypertension; GERD; kidney cancer; Migraines; - Immunization history:: Adult Immunizations up to date. - Social history:: Smoking status: unknown Patient/guardian denies using alcohol, street drugs. Screenin:55 Abuse screen: Denies threats or abuse. Denies injuries from another. Nutritional ao screening: No deficits noted. Tuberculosis screening: No symptoms or risk factors identified. Fall Risk None identified. 06:59 VAN Screening: Arm Drift: Patient shows no arm weakness. Visual Disturbance: No visual ao disturbance noted. Aphasia: No aphasia noted. Neglect: No neglect noted. Assessment: 06:56 General: Appears in no apparent distress. comfortable, Behavior is calm, cooperative, ao appropriate for age. Pain: Denies pain. Neuro: Level of Consciousness is awake, alert, obeys commands, Oriented to person, place, time, situation, Appropriate for age Moves all extremities. Full function Speech is normal, Facial symmetry appears normal. Cardiovascular: Capillary refill < 3 seconds Patient's skin is warm and dry. Respiratory: Airway is patent Respiratory effort is even, unlabored, Respiratory pattern is regular, symmetrical. GI: Abdomen is non-distended. : No signs and/or symptoms were reported regarding the genitourinary system. EENT: No signs and/or symptoms were reported regarding the EENT system. Derm: Skin is intact, Skin is pink, warm \T\ dry. normal, Skin temperature is warm. Musculoskeletal: No signs and/or symptoms reported regarding the musculoskeletal system. 07:40 Reassessment: pt reports nausea, provider notified, new medication orders received. em 08:00 Reassessment: Patient appears in no apparent distress at this time. Patient and/or em family updated on plan of care and expected duration. Pain level reassessed. Patient is alert, oriented x 3, equal unlabored respirations, skin warm/dry/pink. Patient states feeling better. Patient states symptoms have improved. 08:38 Reassessment: Patient appears in no apparent distress at this time. ambulated to em restroom with steady gait. Vital Signs: 06:47 BP 150 / 92; Pulse 80; Resp 16; Temp 97.5(O); Pulse Ox 100% on R/A; Weight 74.84 kg ao (R); Height 5 ft. 2 in. (157.48 cm) (R); Pain 0/10; 07:39 BP 164 / 98; Pulse 76; Resp 18; Pulse Ox 99% ; sv 06:47 Body Mass Index 30.18 (74.84 kg, 157.48 cm) ao NIH Stroke Scale Scores: 06:59 NIHSS Score: 0 ao ED Course: 06:38 Patient arrived in ED. kb 06:38 Jenny Rodriguez FNP-C is PHCP. kb 06:38 Joel Marrufo MD is Attending Physician. kb 06:51 Triage completed. ao 06:51 Arm band placed on right wrist. Patient placed in an exam room, on a stretcher, on ao outside repairer special, Patient notified of wait time. 06:55 CT Head Brain wo Cont In Process Unspecified. EDMS 06:58 Patient has correct armband on for positive identification. gasket maker on. Pulse ao ox on. NIBP on. 07:04 XRAY Chest (1 view) In Process Unspecified. EDMS 07:05 Yung Bowden, RN is Primary Nurse. em 07:43 Basic Metabolic Panel Sent. sv 08:43 No provider procedures requiring assistance completed. IV discontinued, intact, em bleeding controlled, No redness/swelling at site. Pressure dressing applied. Administered Medications: 07:39 Drug: Magnesium Sulfate 2 grams Route: IVPB; Infused Over: 2 hrs; Site: right forearm; em 08:41 Follow up: Response: No adverse reaction; IV Status: Completed infusion; IV Intake: em 100ml 07:39 Drug: Potassium Chloride 40 mEq Route: PO; em 07:46 Follow up: Response: No adverse reaction em 07:40 Drug: NS 0.9% 500 ml Route: IV; Rate: bolus; Site: right forearm; em 08:41 Follow up: Response: No adverse reaction; IV Status: Completed infusion; IV Intake: em 500ml 07:45 Drug: Zofran (Ondansetron) 4 mg Route: IVP; Site: right forearm; em 08:10 Follow up: Response: No adverse reaction; Marked relief of symptoms; Nausea is decreasedem Intake: 08:41 IV: 100ml; Total: 100ml. em 08:41 IV: 500ml; Total: 600ml. em Outcome: 08:21 Discharge ordered by . harjinder 08:45 Discharged to home via wheelchair, with family. em 08:45 Condition: good 08:45 Discharge instructions given to patient, Instructed on discharge instructions, follow up and referral plans. Demonstrated understanding of instructions, follow-up care. 09:12 Patient left the ED. NIH Stroke Scale - NIH Stroke Score Date: 10/21/2019 Time: 06:59 Total Score = 0 1a. Level of Consciousness (LOC) - 0(Alert) 1b. Level of Consciousness (LOC) (Year \T\ Age) - 0(Both) 1c. LOC Commands (Open \T\ Closes Eyes/Environmental Marketer) - 0(Both) 2. Best Gaze (Lateral Gaze Paresis) - 0(Normal) 3. Visual Field Loss - 0(No visual loss) 4. Facial Palsy - 0(Normal) 5a. Left Arm: Motor (10-second hold) - 0(No drift) 5b. Right Arm: Motor (10-second hold) - 0(No drift) 6a. Left Leg: Motor (5-second hold - always test supine) - 0(No drift) 6b. Right Leg: Motor (5-second hold - always test supine) - 0(No drift) 7. Limb Ataxia (finger/nose \T\ heel/hansen - test with eyes open) - 0(Absent) 8. Sensory Loss (pinprick arms/legs/face) - 0(Normal) 9. Best Language: Aphasia (description/naming/reading) - 0(No aphasia) 10. Dysarthria (speech clarity - read or repeat words) - 0(Normal) 11. Extinction and Inattention (visual/tactile/auditory/spatial/personal) - 0(No abnormality) Initials: ao Signatures: Dispatcher [employer] Jenny Keys FNP-C FNP-Isabella Singleton RN Yung Hightower RN Dimas Franco RN RN ao
--- NOTE | 2019-10-21 08:22 | EDPHYS ---
Physician Documentation [facility] Name: Amber Acosta Age: 73 yrs Sex: Female : 1945 Arrival Date: 10/21/2019 Time: 06:38 Bed 4 Private MD: ED Physician Joel Marrufo HPI: 10/20 06:40 This 73 yrs old Female presents to ER via Unassigned with complaints of kb tingling in hands and feet. 06:40 The patient presents to the emergency department with paresthesias of the right hand, kb left hand, right foot and left foot. Onset: The symptoms/episode began/occurred this morning. Context: occurred at home, occurred while the patient was upon waking. Associated signs and symptoms: Pertinent positives: nausea, paresthesias, Pertinent negatives: altered mental status, chills, dizziness, fever, headache, neck stiffness, seizure, syncope, near-syncope, blurred vision, double vision, visual field changes, loss of vision. Severity of symptoms: At their worst the symptoms were moderate in the emergency department the symptoms are unchanged. Patient's baseline: Neuro: alert and fully oriented, Motor: no deficits, Ambulation: walks without assistance, Speech: normal. Current symptoms: paralysis or paresis, of the right hand, left hand, right foot and left foot, that is mild. The patient has not experienced similar symptoms in the past. The patient has not recently seen a physician. Pt states she woke up with a weird feeling and tingling in her fingertips and toes. States she felt like her heart was beating fast and c/o nausea. "I don't know if I'm having a panic attack or what." Pt reports history of anxiety. EMS reports tachycardia and hypertension upon arrival, but both returned to normal in route. . Historical: - Allergies: 06:52 Bees; ao 06:52 Codeine; ao 06:52 hydrocodone bitartrate; ao 06:52 Iodinated Contrast Media - IV Dye; ao 06:52 Levofloxacin; ao 06:52 METRONIDAZOLE; ao 06:52 PENICILLINS; ao 06:52 SHELLFISH; ao 06:52 sulfamethoxazole; ao 06:52 TRIMETHOPRIM; ao 06:52 Wasps; ao - Home Meds: 06:52 amlodipine 10 mg tab [Active]; donepezil 5 mg Oral TbDL 1 tab once daily [Active]; ao atorvastatin 50mg Oral 1 tab AT NIGHT [Active]; doxazosin 2 mg Oral tab 1 tab once daily [Active]; gabapentin 100 mg Oral cap 3 caps 3 times per day [Active]; Effexor 3 tabs Oral 75 mg daily [Active]; Lunesta 3 mg Oral tab 1 tab once daily [Active]; lorazepam 1 mg Oral tab 1 tab once daily for Anxiety [Active]; Ecotrin 325 mg Oral TbEC 1 tab once daily [Active]; metoprolol tartrate 50 mg Oral tab 1 tab 2 times per day [Active]; pantoprazole 20 mg Oral TbEC 1 tab once daily [Active]; metformin 500 mg Oral tab 1 tab 2 times per day [Active]; - PMHx: 06:52 Alzheimers; Anxiety; CAD; CVA; Depression; Diabetes - NIDDM; High Cholesterol; ao Hypertension; GERD; kidney cancer; Migraines; - Immunization history:: Adult Immunizations up to date. - Social history:: Smoking status: unknown Patient/guardian denies using alcohol, street drugs. ROS: 06:43 Constitutional: Negative for fever, chills, and weight loss, Eyes: Negative for injury, kb pain, redness, and discharge, ENT: Negative for injury, pain, and discharge, Neck: Negative for injury, pain, and swelling, Cardiovascular: Negative for chest pain, palpitations, and edema, Respiratory: Negative for shortness of breath, cough, wheezing, and pleuritic chest pain, Back: Negative for injury and pain, : Negative for injury, bleeding, discharge, and swelling, MS/Extremity: Negative for injury and deformity, Skin: Negative for injury, rash, and discoloration. 06:43 Abdomen/GI: Positive for nausea, Negative for abdominal pain, diarrhea, constipation. 06:43 Neuro: Positive for tingling, of the left foot and right foot and left hand and right hand. Exam: 06:43 Constitutional: This is a well developed, well nourished patient who is awake, alert, kb and in no acute distress. Head/Face: Normocephalic, atraumatic. Eyes: Pupils equal round and reactive to light, extra-ocular motions intact. Lids and lashes normal. Conjunctiva and sclera are non-icteric and not injected. Cornea within normal limits. Periorbital areas with no swelling, redness, or edema. ENT: Nares patent. No nasal discharge, no septal abnormalities noted. Tympanic membranes are normal and external auditory canals are clear. Oropharynx with no redness, swelling, or masses, exudates, or evidence of obstruction, uvula midline. Mucous membranes moist. Neck: Trachea midline, no thyromegaly or masses palpated, and no cervical lymphadenopathy. Supple, full range of motion without nuchal rigidity, or vertebral point tenderness. No Meningismus. Chest/axilla: Normal chest wall appearance and motion. Nontender with no deformity. No lesions are appreciated. Cardiovascular: Regular rate and rhythm with a normal S1 and S2. No gallops, murmurs, or rubs. Normal PMI, no JVD. No pulse deficits. Respiratory: Lungs have equal breath sounds bilaterally, clear to auscultation and percussion. No rales, rhonchi or wheezes noted. No increased work of breathing, no retractions or nasal flaring. Skin: Warm, dry with normal turgor. Normal color with no rashes, no lesions, and no evidence of cellulitis. MS/ Extremity: Pulses equal, no cyanosis. Neurovascular intact. Full, normal range of motion. Neuro: Awake and alert, GCS 15, oriented to person, place, time, and situation. Cranial nerves II-XII grossly intact. Motor strength 5/5 in all extremities. Sensory grossly intact. Cerebellar exam normal. Normal gait. 06:43 Abdomen/GI: Inspection: abdomen appears normal, Bowel sounds: normal, in all quadrants, Palpation: soft, in all quadrants, mild abdominal tenderness, in the left upper quadrant, right lower quadrant and left lower quadrant. 06:49 ECG was reviewed by the Attending Physician. kb Vital Signs: 06:47 BP 150 / 92; Pulse 80; Resp 16; Temp 97.5(O); Pulse Ox 100% on R/A; Weight 74.84 kg ao (R); Height 5 ft. 2 in. (157.48 cm) (R); Pain 0/10; 07:39 BP 164 / 98; Pulse 76; Resp 18; Pulse Ox 99% ; sv 06:47 Body Mass Index 30.18 (74.84 kg, 157.48 cm) ao NIH Stroke Scale Scores: 06:59 NIHSS Score: 0 ao MDM: 06:38 Patient medically screened. kb 06:43 Data reviewed: vital signs, nurses notes. Data interpreted: Pulse oximetry: on room air kb is 98 %. Interpretation: normal. 06:48 ED course: Pt is alert and oriented x4, speech clear, no drift in upper or lower kb extremities, strength strong and equal in all 4 extremities, EOMs intact, PERRL. . 08:19 Counseling: I had a detailed discussion with the patient and/or guardian regarding: the kb historical points, exam findings, and any diagnostic results supporting the discharge/admit diagnosis, lab results, radiology results, the need for outpatient follow up, a family practitioner, to return to the emergency department if symptoms worsen or persist or if there are any questions or concerns that arise at home. ED course: Pt feeling better, tingling resolved. States she lost her a year ago and hasn't been taking care of herself like she should. Pt became tearful while discussing the loss of her . Recommended reaching out to family for support as needed. . 10/20 06:39 Order name: Basic Metabolic Panel kb 10/20 06:39 Order name: CBC with Diff; Complete Time: 07:07 kb 10/20 06:39 Order name: LFT's; Complete Time: 07:25 kb 10/20 06:39 Order name: Magnesium; Complete Time: 07:25 kb 10/20 06:39 Order name: NT PRO-BNP; Complete Time: 07:25 kb 10/20 06:39 Order name: PT-INR; Complete Time: 07:07 kb 10/20 06:39 Order name: Troponin (emerg Dept Use Only); Complete Time: 07:25 kb 10/20 06:39 Order name: XRAY Chest (1 view); Complete Time: 08:01 kb 10/20 06:39 Order name: CT Head Brain wo Cont; Complete Time: 07:44 kb 10/20 06:40 Order name: Basic Metabolic Panel; Complete Time: 07:25 EDMS 10/20 06:39 Order name: EKG; Complete Time: 06:41 kb 10/20 06:39 Order name: Cardiac monitoring; Complete Time: 07:05 kb 10/20 06:39 Order name: EKG - Nurse/Tech; Complete Time: 07:05 kb 06/30 06:39 Order name: IV Saline Lock; Complete Time: 07:41 kb 10/20 06:39 Order name: Labs collected and sent; Complete Time: 07:05 kb 10/20 06:39 Order name: O2 Per Protocol; Complete Time: 07:05 kb 10/20 06:39 Order name: O2 Sat Monitoring; Complete Time: 07:05 kb EC:49 Rate is 74 beats/min. Rhythm is regular. QRS [place] is Normal. [place] interval is normal at kb 134 msec. QRS interval is normal at 84 msec. QT interval is normal at 426 msec. Administered Medications: 07:39 Drug: Magnesium Sulfate 2 grams Route: IVPB; Infused Over: 2 hrs; Site: right forearm; em 08:41 Follow up: Response: No adverse reaction; IV Status: Completed infusion; IV Intake: em 100ml 07:39 Drug: Potassium Chloride 40 mEq Route: PO; em 07:46 Follow up: Response: No adverse reaction em 07:40 Drug: NS 0.9% 500 ml Route: IV; Rate: bolus; Site: right forearm; em 08:41 Follow up: Response: No adverse reaction; IV Status: Completed infusion; IV Intake: em 500ml 07:45 Drug: Zofran (Ondansetron) 4 mg Route: IVP; Site: right forearm; em 08:10 Follow up: Response: No adverse reaction; Marked relief of symptoms; Nausea is decreasedem Disposition: 10/21 01:16 Co-signature as Attending Physician, Joel Marrufo MD. [email or web address] Disposition: 10/21/19 08:21 Discharged to Home. Impression: Volume depletion, Hypomagnesemia, Hypokalemia. - Condition is Stable. - Discharge Instructions: Hypomagnesemia, Dehydration, Adult, [id number], Hypokalemia. - Medication Reconciliation Form, Thank You Letter, Antibiotic Education, Prescription Opioid Use form. - Follow up: Emergency Department; When: As needed; Reason: Worsening of condition. Follow up: Private Physician; When: 2 - 3 days; Reason: Recheck today's complaints, Continuance of care, Re-evaluation by your physician. NIH Stroke Scale - NIH Stroke Score Date: 10/21/2019 Time: 06:59 Total Score = 0 1a. Level of Consciousness (LOC) - 0(Alert) 1b. Level of Consciousness (LOC) (Year \\T\\ Age) - 0(Both) 1c. LOC Commands (Open \\T\\ Closes Eyes/Trimmer Sorter) - 0(Both) 2. Best Gaze (Lateral Gaze Paresis) - 0(Normal) 3. Visual Field Loss - 0(No visual loss) 4. Facial Palsy - 0(Normal) 5a. Left Arm: Motor (10-second hold) - 0(No drift) 5b. Right Arm: Motor (10-second hold) - 0(No drift) 6a. Left Leg: Motor (5-second hold - always test supine) - 0(No drift) 6b. Right Leg: Motor (5-second hold - always test supine) - 0(No drift) 7. Limb Ataxia (finger/nose \\T\\ heel/hansen - test with eyes open) - 0(Absent) 8. Sensory Loss (pinprick arms/legs/face) - 0(Normal) 9. Best Language: Aphasia (description/naming/reading) - 0(No aphasia) 10. Dysarthria (speech clarity - read or repeat words) - 0(Normal) 11. Extinction and Inattention (visual/tactile/auditory/spatial/personal) - 0(No abnormality) Initials: ao Signatures: Dispatcher [employer] EDMS Jenny Rodriguez, DRY LUMBER GRADER-C DRY LUMBER GRADER-CkIsabella Brown RN Yung Hightower RN RN em Ortiz, Alex, RN RN ao Holmes, Maurice, MD MD [email or web address] Corrections: (The following items were deleted from the chart) 10/20 08:21 08:19 ED course: Pt feeling better, tingling resolved. States she lost her kb a year ago and hasn't been taking care of herself like she should. . kb 09:12 08:21 10/21/2019 08:21 Discharged to Home. Impression: Volume depletion; sv Hypomagnesemia; Hypokalemia. Condition is Stable. Forms are Medication Reconciliation Form, Thank You Letter, Antibiotic Education, Prescription Opioid Use. Follow up: Emergency Department; When: As needed; Reason: Worsening of condition. Follow up: Private Physician; When: 2 - 3 days; Reason: Recheck today's complaints, Continuance of care, Re-evaluation by your physician. kb
[2019-10-21 09:23] VITALS: TEMP 97.5
[2019-10-21 09:24] VITALS: BP 164/98; O2SAT 99
--- NOTE | 2019-10-22 07:18 | EKG ---
Test Date: 2019-10-21 Test Time: 06:47:05 Document Management Specialist: RASHIDA MEASUREMENT RESULTS: Intervals: Rate: 74 NC: 134 QRSD: 84 QT: 426 QTc: 472 [place]: P: 82 NC: 134 QRS: 56 T: 59 INTERPRETIVE STATEMENTS: Normal sinus rhythm ST abnormality, possible digitalis effect Abnormal ECG Compared to ECG 12/29/2018 20:12:39 ST (T wave) deviation now present Left ventricular hypertrophy no longer present Electronically Signed On 10-22-19 07:15:55 CDT by Jose Antonio Finn
== END 2019-10-21 09:12 | disposition home or self-care (01) ==
LOC: ER 06:36
DX: E86.9 Volume depletion, unspecified (principal); E83.42 Hypomagnesemia; E87.6 Hypokalemia; I10 Essential (primary) hypertension; F41.9 Anxiety disorder, unspecified; E11.9 Type 2 diabetes mellitus without complications; E78.00 Pure hypercholesterolemia, unspecified; G30.9 Alzheimer's disease, unspecified; F02.80 Dementia in other diseases classified elsewhere, unspecified severity, without behavioral disturbance, psychotic disturbance, mood disturbance, and anxiety; Z85.528 Personal history of other malignant neoplasm of kidney; Z88.0 Allergy status to penicillin; Z88.1 Allergy status to other antibiotic agents; Z88.2 Allergy status to sulfonamides; Z88.5 Allergy status to narcotic agent; Z88.8 Allergy status to other drugs, medicaments and biological substances; Z91.013 Allergy to seafood; Z91.030 Bee allergy status
CPT/HCPCS: 96365; 93005; 85025; 80048; 36415; 83735; 85610; 80076; 84484; 83880; 70450; 71045; 96375; 99284; J3475; J7040; J2405

== ENCOUNTER 2021-12-12 11:54 | Emergency (ER) | payer OTHER ==
--- OUTSIDE RECORDS SUMMARY | 2021-12-12 12:03 | XMS REPORT | Continuity of Care Document ---
:1945 Author Organization [facility] t Address [address] [place] [address] Care Team Providers Name Role Phone Erica Sanchez Attending Clinician Unavailable Peng Sanchez Attending Clinician Unavailable Haven Steel Attending Clinician Unavailable Lorraine Donnelly Attending Clinician Unavailable Problems This patient has no known problems. Allergies, Adverse Reactions, Alerts Allergy Allergy Status Severity Reaction(s) Onset Inactive Treating Comm ents Source Name Type Date Date Clinician codeine Adverse Active Info Not Common Reaction Available [facility] PCN Adverse Active Info Not Common Reaction Available [facility] bee Adverse Active Info Not Common sting Reaction Available [facility] Medications Ordered Filled Start Stop Current Ordering Indication Dosage Frequency Signature Comments Components Source Medication Medication Date Date Medication? Clinician (SIG) Name Name Blood Blood 2020-0 Yes Lorraine as Common Glucose Glucose 6-25 Millender directed Spirit Test Test 00:00: - [facility] 00 [facility] Blood Blood 2020-0 Yes Lorraine as Common Glucose Glucose 6-25 Millender directed Spirit Monitor Monitor 00:00: - [facility] System System [facility] Lancets Lancets 2020-0 Yes Lorraine as Common 6-25 Millender directed Spirit 00:00: - [facility] 00 [facility] Mupirocin Mupirocin 2020-0 2020- No Lorraine 1 C ommon 1-22 05-24 Millender applicatio Spi rit 00:00: 00:00 n to - [facility] 00 :00 affected [facility] Simvastatin Simvastatin Yes Lorraine 1 tablet Common Millender in the Spirit evening [facility] Bentyl Bentyl Yes Lorraine 1 tablet Common Millender [facility] Protonix Protonix Yes Lorraine 1 tablet Co mmon [facility] Spirit [facility] Protonix Protonix Yes Lorraine 1 tablet Co mmon Millender [facility] Lotrisone Lotrisone Yes Lorraine 1 Comm on Millender applicatio Spir it n to - [facility] affected [facility] Bactroban Bactroban Yes Lorraine 1 Comm on Millender applicatio Spir it n to - [facility] affected [facility] Gabapentin Gabapentin Yes Lorraine 1 capsule Common Millender [facility] Metoprolol Metoprolol Yes Lorraine 1 tablet Common Tartrate Tartrate Millender Sp [facility] Metoprolol Metoprolol Yes Lorraine 1 tablet Common Tartrate Tartrate Millender [facility] Ativan Ativan Yes Lorraine 1 tablet Common Millender [facility] Lunesta Lunesta Yes Lorraine 1 tablet Comm on Millender immediatel Spir it y before - [facility] bedtime [facility] Donepezil Donepezil Yes Lorraine 1 tablet Common HCl HCl Millender at bedtime Spir it [facility] EpiPen EpiPen Yes Lorraine as Common 2-Ney 2-Ney Millender directed Spir [facility] Bactrim DS Bactrim DS Yes Lorraine 1 tablet Common Millender [facility] Effexor XR Effexor XR Yes Lorraine 3 capsules Common Millender [facility] Vitamin D Vitamin D Yes Lorraine 1 tablet Common Millender [facility] Atorvastati Atorvastati Yes Lorraine 1 tablet Common n Calcium n Calcium Millender in evening [facility] Metformin Metformin Yes Lorraine 1 tablet Common HCl HCl Millender [facility] Amlodipine Amlodipine Yes Lorraine 1 tablet Common Besylate Besylate Millender Sp stephon [facility] Cardura Cardura Yes Lorraine 1 tablet Comm on Millender in evening Spir it [facility] Immunizations Ordered Immunization Filled Immunization Date Status Commen ts Source Name Name TDAP > 7 TDAP > 7 2019-05-30 Completed Common Spirit Years-Adacel Years-Adacel 00:00:00 - [facility] Procedures This patient has no known procedures. Encounters Start End Encounter Admission Attending Care Care Encounter Source Date/Time Date/Time Type Type Clinicians Facility Department ID 2021-08-31 Outpatient Sanchez, STLMLC STLMLC [id number] Common 10:17:01 [facility] 2021-07-01 Outpatient Sanchez, STLMLC STLMLC [id number] Common 13:41:00 [facility] 2021-05-18 Outpatient Sanchez, STLMLC STLMLC [id number] Common 14:19:31 Avryan 16577 [facility] 2021-05-18 Outpatient STLMLC STLMLC [id number] Common 13:35:35 22054 [facility] 2021-05-18 Outpatient Damián, STLMLC STLMLC [id number] Common 13:33:23 [place] [facility] 2021-05-18 Outpatient Damián, STLMLC STLMLC [id number] Common 12:42:13 [place] [id number] [facility] 2021-05-18 Outpatient Damián, STLMLC STLMLC [id number] Common 12:18:00 [place] 75168 [facility] 2021-05-18 Outpatient Damián, STLMLC STLMLC [id number] Common 12:04:18 [place] [address]8568 [facility] 2021-05-18 Outpatient Dmaián, STLMLC STLMLC [id number] Common 12:02:58 [place] 60703 [facility] 2021-05-18 Outpatient STLMLC STLMLC [id number] Common 12:02:39 [id number] [facility] 2021-05-18 Outpatient STLMLC STLMLC [id number] Common 11:59:31 [id number] [facility] 2021-05-18 Outpatient Millender, STLMLC STLMLC [id number] Common 11:47:59 Lorraine 78905 [facility] 2021-05-18 Outpatient Millender, STLMLC STLMLC [id number] Common 11:45:40 Lorraine 07050 [facility] 2021-05-18 Outpatient Millender, STLMLC STLMLC [id number] Common 11:26:19 Lorraine [id number] [facility] 2021-05-18 Outpatient Millender, STLMLC STLMLC [id number] Common 11:26:07 Lorraine [id number] [facility] 2021-05-18 Outpatient Millender, STLMLC STLMLC [id number] Common 11:16:08 Lorraine [id number] [facility] 2021-05-18 Outpatient Millender, STLMLC STLMLC [id number] Common 11:02:11 Lorraine [id number] [facility] 2021-05-18 Outpatient Millender, STLMLC STLMLC [id number] Common 11:01:50 Lorraine [id number] [facility] 2021-07-04 2021-07-04 ambulatory STLMLC STLMLC [id number] Common 00:00:00 00:00:00 [facility] 2021-06-16 2021-06-16 ambulatory STLMLC STLMLC [id number] Common 00:00:00 00:00:00 [facility] 2021-03-28 2021-03-28 ambulatory STLMLC STLMLC [id number] Common 00:00:00 00:00:00 [facility] 2020-12-22 2020-12-22 Outpatient STLMLC STLMLC [id number] Common 00:00:00 00:00:00 [facility] 2020-12-162020-12-16 Outpatient STLMLC STLMLC [id number] Common 00:00:00 00:00:00 [facility] 2020-12-03 2020-12-03 Outpatient STLMLC STLMLC [id number] Common 00:00:00 00:00:00 [facility] 2020-11-29 2020-11-29 Outpatient STLMLC STLMLC [id number] Common 00:00:00 00:00:00 [facility] 2020-04-30 2020-04-30 Outpatient STLMLC STLMLC [id number] Common 00:00:00 00:00:00 [facility] 2020-04-28 2020-04-28 Outpatient STLMLC STLMLC [id number] Common 00:00:00 00:00:00 [facility] 2020-04-07 2020-04-07 Outpatient STLMLC STLMLC [id number] Common 00:00:00 00:00:00 [facility] 2020-04-02 2020-04-02 Outpatient STLMLC STLMLC [id number] Common 00:00:00 00:00:00 [facility] 2020-03-17 2020-03-17 Outpatient STLMLC STLMLC [id number] Common 00:00:00 00:00:00 [facility] 2020-03-12 2020-03-12 Outpatient STLMLC STLMLC [id number] Common 00:00:00 00:00:00 [facility] 2020-03-08 2020-03-08 Outpatient STLMLC STLMLC [id number] Common 00:00:00 00:00:00 [facility] 2020-03-04 2020-03-04 Outpatient STLMLC STLMLC [id number] Common 00:00:00 00:00:00 [facility] 2020-03-03 2020-03-03 Outpatient STLMLC STLMLC [id number] Common 00:00:00 00:00:00 [facility] 2020-02-27 2020-02-27 Outpatient STLMLC STLMLC [id number] Common 00:00:00 00:00:00 [facility] 2020-01-05 2020-01-05 [facility] [id number] Common 11:20:00 11:20:[address] [facility] 2020-01-05 2020-01-05 Outpatient STLMLC STLMLC [id number] Common 00:00:00 00:00:00 [facility] 2019-12-24 2019-12-24 [facility] [id number] Common 17:37:00 17:37:[address] [facility] 2019-12-15 2019-12-15 [facility] [id number] Common 13:00:00 13:00:[address] [facility] 2019-12-04 2019-12-04 [facility] [id number] Common 08:33:00 08:33:[address] [facility] 2019-10-16 2019-10-16 [facility] [id number] Common 08:38:00 08:38:[address] [facility] 2019-10-12 2019-10-12 [facility] [id number] Common 18:27:00 18:27:[address] [facility] 2019-10-03 2019-10-03 [facility] [id number] Common 10:20:00 10:20:[address] [facility] 2019-06-03 2019-06-03 [facility] [id number] Common 03:07:00 03:07:[address] [facility] 2019-05-30 2019-05-30 [facility] [id number] Common 15:00:00 15:00:[address] [facility] 2019-05-19 2019-05-19 [facility] [id number] Common 19:21:00 19:21:00 t [facility] [address] [facility] 2019-05-14 2019-05-14 [facility] [id number] Common 00:12:00 00:12:00 t [facility] [address] [facility] 2019-05-13 2019-05-13 Outpatient Jean Claude Rashid [id number] Common 23:58:00 23:58:00 t [facility] [address] [facility] 2019-05-13 2019-05-13 Outpatient Jean Claude Silveriot [id number] Common 13:45:00 13:45:00 t [facility] [address] [facility] Results This patient has no known results.
[2021-12-12 13:30] LABS: Urine Blood Negative (Negative); Urine Glucose Negative (Negative); Urine Protein 2+ (Negative); Urine Specific Gravity >=1.030 (1.005-1.030); Urine pH 5.5 (5.0-7.0)
[2021-12-12 14:00] LABS: Calcium Oxalate Crystals- Ur Few /HPF (None Seen); Transitional Epithelial <5 /HPF (None Seen); Urine Bacteria <20 /HPF (<20); Urine Mucus 1+ /HPF (None Seen); Urine RBC <5 /HPF (None Seen)
[2021-12-12 14:35] LABS: Absolute Lymphocytes (CBC) 1.6 K/uL (0.7-4.9); Hematocrit 45.1 % (36.0-45.0); Lymphocytes % 17.1 % (15.3-44.8); MCV 87.5 fL (80-100); MPV 9.3 fL (7.6-11.3); RBC Red Blood Cell Count 5.15 M/uL (3.86-4.86)
[2021-12-12 14:51] LABS: Albumin 4.2 g/dL (3.4-5.0); Bilirubin Total 0.9 mg/dL (0.2-1.0); Potassium 3.5 mmol/L (3.5-5.1); Protein, Total 8.1 g/dL (6.4-8.2)
--- NOTE | 2021-12-12 14:52 | RAD REPORT ---
EXAM DESCRIPTION: CT - Head Brain Wo Cont - 12/12/2021 2:40 pm CLINICAL HISTORY: Alteration of awareness/confusion COMPARISON: 2019 TECHNIQUE: Computed axial tomography of the head was obtained. IV contrast was not requested. All CT scans are performed using dose optimization technique as appropriate and may include automated exposure control or mA/KV adjustment according to patient size. FINDINGS: An intracranial bleed is not seen . The ventricles are normal in caliber. No extra-axial fluid collection is noted. Small low-density areas within the thalamus are unchanged and may represent old infarct Mild to moderate low-density areas within periventricular, deep and subcortical white matter likely r epresent ischemic changes secondary to small vessel disease. Fluid within the sinuses/ mastoids is not seen. IMPRESSION: No acute intracranial abnormality is seen. If patient's symptoms persist MRI of the bra in would be recommended.
--- NOTE | 2021-12-12 16:25 | ER ---
Nurse's Notes [facility] Name: Amber Acosta Age: 76 yrs Sex: Female : 1945 Arrival Date: 12/12/2021 Time: 12:02 Bed 28 Private MD: Diagnosis: Essential (primary) hypertension;Dementia in other diseases classified elsewhere without behavioral disturbance Presentation: 12/12 12:03 Chief complaint: EMS states: toned out to Pt home by neighbor. Upon arrival - AMS, c/o ld1 burning when urinating. Coronavirus screen: At this time, the client does not indicate any symptoms associated with coronavirus-19. Ebola Screen: No symptoms or risks identified at this time. 12:03 Method Of Arrival: EMS: [facility] ld1 13:50 Initial Sepsis Screen: Does the patient meet any 2 criteria? Altered Mental Status. HR ld1 > 90 bpm. Yes Does the patient have a suspected source of infection? Yes: Dysuria/Frequency/Urgency/UTI If YES to both, name of provider notified: Jenny Rodriguez DIETICIAN-Pedro Luis Risk Assessment: Do you want to hurt yourself or someone else? Patient reports no desire to harm self or others. Onset of symptoms is unknown. 13:50 Acuity: IVETTE 3 ld1 Triage Assessment: 12:05 General: Appears in no apparent distress. comfortable, Behavior is calm, cooperative, ld1 appropriate for age. Pain: Denies pain. EENT: No signs and/or symptoms were reported regarding the EENT system. Neuro: Level of Consciousness is awake, alert, obeys commands, Oriented to person. Cardiovascular: Capillary refill < 3 seconds Patient's skin is warm and dry. Rhythm is sinus tachycardia. Respiratory: Airway is patent Respiratory effort is even, unlabored. GI: Abdomen is flat, non-distended. : No signs and/or symptoms were reported regarding the genitourinary system. Derm: No signs and/or symptoms reported regarding the dermatologic system. Musculoskeletal: No signs and/or symptoms reported regarding the musculoskeletal system. Historical: - Allergies: 12:05 Bees; ld1 12:05 Codeine; ld1 12:05 hydrocodone bitartrate; ld1 12:05 Iodinated Contrast Media - IV Dye; ld1 12:05 Levofloxacin; ld1 12:05 metronidazole; ld1 12:05 PENICILLINS; ld1 12:05 SHELLFISH; ld1 12:05 sulfamethoxazole; ld1 12:05 TRIMETHOPRIM; ld1 12:05 Wasps; ld1 - PMHx: 12:05 Alzheimers; Migraines; kidney cancer; CVA; Anxiety; Depression; GERD; Diabetes - NIDDM; ld1 High Cholesterol; Hypertension; CAD; - Immunization history:: Adult Immunizations up to date, Client reports having NOT received the Covid vaccine. - Social history:: Smoking status: Patient denies any tobacco usage or history of. Patient/guardian denies using alcohol. Screenin:28 Abuse screen: Denies threats or abuse. Denies injuries from another. Nutritional ss screening: No deficits noted. Tuberculosis screening: Never had TB. Fall Risk None identified. Assessment: 12:28 Reassessment: point of contact: Marcos Jaun (son) [phone]. Елена (Daughter- in- ss law) [phone]. 13:20 Reassessment: Pt displaying confusion. Demanding to go home. Will not stay in room. ld1 Notified charge nurse \T\ provided. 1 on 1 sitter provided. Pt trying to elope from ER at this time. 15:00 Reassessment: Pt agreed to stay until lab and imaging results come back. Provided socks eh3 and snack for comfort.. 16:26 Reassessment: Spoke with patient's son, Marcos who states he will be leaving work and on ss his way. States that he works about an hour or so away from [place]. Vital Signs: 12:03 BP 200 / 90; Pulse 105; Resp 18; Pulse Ox 95% on R/A; ld1 13:00 BP 174 / 113; Pulse 98; Resp 18; Pulse Ox 96% on R/A; eh3 14:02 BP 152 / 90; Pulse 101; Resp 18; Pulse Ox 97% on R/A; ld1 15:00 BP 164 / 115; Pulse 84; Resp 16; Pulse Ox 96% on R/A; eh3 15:18 BP 191 / 112; Pulse 101; Resp 18; Pulse Ox 96% on R/A; eh3 16:00 BP 142 / 119; Pulse 91; Resp 16; Pulse Ox 96% on R/A; eh3 17:00 BP 157 / 95; Pulse 88; Resp 16; Pulse Ox 96% on R/A; eh3 ED Course: 12:02 Patient arrived in ED. ld1 12:05 Arm band placed on right wrist. ld1 12:07 Jenny Rodriguez FNP-C is [facility]. kb 12:07 Jaxson Rios MD is Attending Physician. kb 12:19 Loly Padron, RN is Primary Nurse. ld1 12:28 Patient has correct armband on for positive identification. ss 13:45 Door closed. Noise minimized. Warm blanket given. PO fluids given. eh3 13:51 Triage completed. ld1 14:00 Assisted to bathroom. eh3 14:01 Inserted saline lock: 20 gauge in right forearm, using aseptic technique. Blood ld1 collected. 14:41 Head Brain Wo Cont In Process Unspecified. EDMS 14:45 Diet: Patient given snack. eh3 14:50 Primary Nurse role handed off by Loly Padron, RN eh3 14:50 Lauren Saul, RN is Primary Nurse. eh3 16:18 Assisted to bathroom. eh3 17:28 No provider procedures requiring assistance completed. eh3 17:43 IV discontinued, intact, bleeding controlled, No redness/swelling at site. Pressure eh3 dressing applied. Administered Medications: 16:29 Drug: cloNIDine 0.1 mg Route: PO; eh3 17:30 Follow up: Response: No adverse reaction eh3 Medication: 12:28 VIS not applicable for this client. ss Outcome: 16:25 Discharge ordered by . kb 19:22 Patient left the ED. mw2 Signatures: Dispatcher [employer] EDMD Jenny Rodriguez FNP-C FNP-Joselyn Bryan RN RN Lan Casas 2 Loly Padron, RN RN ld1 Lauren Saul RN RN 3
--- NOTE | 2021-12-12 16:26 | EDPHYS ---
Physician Documentation [facility] Name: Amber Acosta Age: 76 yrs Sex: Female : 1945 Arrival Date: 12/12/2021 Time: 12:02 Bed 28 Private MD: ED Physician Jaxson Rios HPI: 12/12 12:33 This 76 yrs old Female presents to ER via EMS with complaints of Altered Mental Status. kb 12:33 The patient has not experienced similar symptoms in the past. The patient has not kb recently seen a physician. Historical: - Allergies: 12:05 Bees; ld1 12:05 Codeine; ld1 12:05 hydrocodone bitartrate; ld1 12:05 Iodinated Contrast Media - IV Dye; ld1 12:05 Levofloxacin; ld1 12:05 metronidazole; ld1 12:05 PENICILLINS; ld1 12:05 SHELLFISH; ld1 12:05 sulfamethoxazole; ld1 12:05 TRIMETHOPRIM; ld1 12:05 Wasps; ld1 - PMHx: 12:05 Alzheimers; Migraines; kidney cancer; CVA; Anxiety; Depression; GERD; Diabetes - NIDDM; ld1 High Cholesterol; Hypertension; CAD; - Immunization history:: Adult Immunizations up to date, Client reports having NOT received the Covid vaccine. - Social history:: Smoking status: Patient denies any tobacco usage or history of. Patient/guardian denies using alcohol. ROS: 12:30 Constitutional: Negative for fever, chills, and weight loss. kb 12:30 : Positive for burning with urination. 12:30 All other systems are negative. Exam: 12:30 Constitutional: This is a well developed, well nourished patient who is awake, alert, kb and in no acute distress. Head/Face: Normocephalic, atraumatic. ENT: Moist Mucous membranes Cardiovascular: Regular rate and rhythm with a normal S1 and S2. No gallops, murmurs, or rubs. No pulse deficits. Respiratory: Respirations even and unlabored. No increased work of breathing. Talking in full sentences Skin: Warm, dry with normal turgor. Normal color. MS/ Extremity: Pulses equal, no cyanosis. Neurovascular intact. Full, normal range of motion. Neuro: Awake and alert, GCS 15, oriented to person, place, time, and situation. Moves all extremities. Normal gait. Psych: Awake, alert, with orientation to person, place and time. Behavior, mood, and affect are within normal limits. 12:30 Abdomen/GI: Inspection: abdomen appears normal, Bowel sounds: normal, in all quadrants, Palpation: soft, in all quadrants, mild abdominal tenderness, in all quadrants, Pt states "its a little tender, but nothing to bellyache about". 13:24 ECG was reviewed by the Attending Physician. Vital Signs: 12:03 BP 200 / 90; Pulse 105; Resp 18; Pulse Ox 95% on R/A; ld1 13:00 BP 174 / 113; Pulse 98; Resp 18; Pulse Ox 96% on R/A; eh3 14:02 BP 152 / 90; Pulse 101; Resp 18; Pulse Ox 97% on R/A; ld1 15:00 BP 164 / 115; Pulse 84; Resp 16; Pulse Ox 96% on R/A; eh3 15:18 BP 191 / 112; Pulse 101; Resp 18; Pulse Ox 96% on R/A; eh3 16:00 BP 142 / 119; Pulse 91; Resp 16; Pulse Ox 96% on R/A; eh3 17:00 BP 157 / 95; Pulse 88; Resp 16; Pulse Ox 96% on R/A; eh3 MDM: 12:07 Patient medically screened. 12:30 Data reviewed: vital signs, nurses notes. Data interpreted: Pulse oximetry: on room air kb is 95 %. Interpretation: normal. 16:17 Counseling: I had a detailed discussion with the patient and/or guardian regarding: the kb historical points, exam findings, and any diagnostic results supporting the discharge/admit diagnosis, lab results, radiology results, the need for outpatient follow up, a family practitioner, to return to the emergency department if symptoms worsen or persist or if there are any questions or concerns that arise at home. ED course: Son was called and he reports pt is normally confused due to dementia. States her behavior is not out of the ordinary. He will come pick pt up. 16:25 ED course: Pt is asymptomatic of BP. States her bp being elevated is typical for her. kb Pt and son educated on diagnostic results. Pt states she is ready to go home. 12/12 12:15 Order name: Blood Culture Adult (2) kb 12/12 12:15 Order name: CBC with Diff; Complete Time: 14:41 kb 12/12 12:15 Order name: CMP; Complete Time: 14:52 kb 12/12 12:15 Order name: Lactate; Complete Time: 14:52 kb 12/12 12:15 Order name: Protime (+inr); Complete Time: 18:40 kb 12/12 12:15 Order name: Ptt, Activated; Complete Time: 18:40 kb 12/12 12:15 Order name: Urine Microscopic Only; Complete Time: 14:14 kb 12/12 12:15 Order name: Accucheck; Complete Time: 12:35 kb 12/12 12:47 Order name: Glucose, Ancillary Testing; Complete Time: 12:53 EDMS 12/12 13:30 Order name: Urine Dipstick-Ancillary; Complete Time: 13:36 EDMS 12/12 14:14 Order name: CT Head Brain wo Cont kb 12/12 14:19 Order name: Head Brain Wo Cont; Complete Time: 14:53 EDMS 12/12 12:15 Order name: Cardiac monitoring; Complete Time: 12:35 kb 12/12 12:15 Order name: EKG - Nurse/Tech; Complete Time: 12:35 kb 12/12 12:15 Order name: IV Saline Lock - Large Bore; Complete Time: 14:01 kb 12/12 12:15 Order name: Labs collected and sent; Complete Time: 14:01 kb 12/12 12:15 Order name: O2 Per Protocol; Complete Time: 12:20 kb 12/12 12:15 Order name: O2 Sat Monitoring; Complete Time: 12:20 kb 12/12 12:15 Order name: Urine Dipstick-Ancillary (obtain specimen); Complete Time: 13:30 kb 12/12 14:41 Order name: Labs - recollect needed: recollect blood culture, draw a red top.; Complete bd Time: 15:11 EC:24 Rate is 95 beats/min. Rhythm is regular. QRS [place] is Normal. NH interval is normal at kb 146 msec. QRS interval is normal at 76 msec. QT interval is normal at 454 msec. Administered Medications: 16:29 Drug: cloNIDine 0.1 mg Route: PO; eh3 17:30 Follow up: Response: No adverse reaction eh3 Disposition Summary: 12/12/21 16:25 Discharge Ordered Location: Home kb Condition: Stable kb Diagnosis - Essential (primary) hypertension kb - Dementia in other diseases classified elsewhere without behavioral disturbance kb Followup: kb - With: Emergency Department - When: As needed - Reason: Worsening of condition Followup: kb - With: Private Physician - When: 2 - 3 days - Reason: Recheck today's complaints, Continuance of care, Re-evaluation by your physician Discharge Instructions: - Discharge Summary Sheet kb - Hypertension, Adult, [id number] kb - Dementia, [id number] kb Forms: - Medication Reconciliation Form kb - Thank You Letter kb - Antibiotic Education kb - Prescription Opioid Use kb Signatures: Dispatcher [employer] EDMS Jenny Rodriguez, ENVIRONMENTAL HEALTH SANITARIAN-C ENVIRONMENTAL HEALTH SANITARIAN-Ckb Serina Lofton Lauren RN RN ld1 Lauren Saul RN RN eh3 Corrections: (The following items were deleted from the chart) 15:58 15:46 Labs - recollect needed ordered. eh3
[2021-12-12] MEDS ORDERED: cloNIDine HCL 0.1 MG TAB ONE (16:34)
[2021-12-12 18:09] LABS: Protime INR 0.99
[2021-12-12 19:53] VITALS: O2SAT 96
[2021-12-12 19:59] VITALS: BP 157/95
--- NOTE | 2021-12-13 13:51 | EKG ---
Test Date: 2021-12-12 Test Time: 12:29:13 Certification And Selection Specialist: DARRON MEASUREMENT RESULTS: Intervals: Rate: 95 PA: 146 QRSD: 74 QT: 360 QTc: 452 [place]: P: 78 PA: 146 QRS: 26 T: 79 INTERPRETIVE STATEMENTS: Sinus rhythm with sinus arrhythmia with occasional premature ventricular complexes Nonspecific ST and T wave abnormality Abnormal ECG Compared to ECG 10/21/2019 06:47:05 Ventricular premature complex(es) now present ST (T wave) deviation still present Electronically Signed On 12-13-21 13:49:15 CDT by Nando Kelley
== END 2021-12-12 19:22 | disposition home or self-care (01) ==
LOC: ER 11:54
DX: I10 Essential (primary) hypertension (principal); G30.9 Alzheimer's disease, unspecified; F02.80 Dementia in other diseases classified elsewhere, unspecified severity, without behavioral disturbance, psychotic disturbance, mood disturbance, and anxiety; E11.9 Type 2 diabetes mellitus without complications; Z85.528 Personal history of other malignant neoplasm of kidney; Z88.2 Allergy status to sulfonamides; Z88.1 Allergy status to other antibiotic agents; Z88.0 Allergy status to penicillin; Z88.5 Allergy status to narcotic agent; Z88.8 Allergy status to other drugs, medicaments and biological substances; Z91.013 Allergy to seafood; Z91.030 Bee allergy status; Z91.038 Other insect allergy status; Z91.041 Radiographic dye allergy status
CPT/HCPCS: 36415; 70450; 80053; 81003; 81015; 82947; 83605; 85025; 85610; 85730; 87040; 93005; 99284

== ENCOUNTER 2022-01-23 14:15 | Emergency (ER) | payer OTHER ==
--- OUTSIDE RECORDS SUMMARY | 2022-01-23 14:26 | XMS REPORT | Continuity of Care Document ---
:1945 Author Organization [facility] t Address [address] [place] [address] Care Team Providers Name Role Phone Erica Snachez Attending Clinician Unavailable Peng Sanchez Attending Clinician Unavailable Haven Steel Attending Clinician Unavailable Lorraine Donnelly Attending Clinician Unavailable Oscar Ceballos Attending Clinician Susannah Betancourt Attending Clinician Susannah Betancourt Admitting Clinician Problems Condition Condition Condition Status Onset Resolution Last Treating Co mments Source Name Details Category Date Date Treatment Clinician Date AMS. CVA AMS. CVA Diagnosis Active 2013-042014-03-03 Memoria Active 0- 15:36:00 l 02/17/2014 00:00: Celestino donahue [address] CVA CVA Diagnosis Active 2013-042014-07-23 Mem oria Active 0-28 11:07:00 l 02/17/2014 00:00: Celestino donahue [address] Cerebrovas Cerebrova Problem Resolve 2019-11-09 Memoria cular scular d 21:49:41 l accident accident Celestino n (disorder) (disorder) Resolved Problem 11/09/2019 [facility] Diverticul Diverticu Problem Resolve 2019-11-09 Memoria itis litis d 21:49:41 l (disorder) (disorder) Ralph rmann Resolved Problem 11/09/2019 [facility] High High Problem Resolve 2019-11-09 Blayne monty density density d 21:49:41 l lipoprotei lipoprotei He regina n n (substance (substance ) ) Resolved Problem 11/09/2019 [facility] Hypertensi Hypertens Problem Resolve 2019-11-09 Memoria ve marlen d 21:49:41 l disorder, disorder, Herm felicitas systemic systemic arterial arterial (disorder) (disorder) Resolved Problem 11/09/2019 [facility] Dementia Dementia Problem Active 2019-11-09 Memoria (disorder) (disorder) 21:49:41 l Active [place] Problem 11/09/2019 [facility] Depressive Depressiv Problem Active 2019-11-09 Memoria disorder e disorder 21:49:41 l (disorder) (disorder) Ralph rmann Active Problem 11/09/2019 [facility] Diabetes Diabetes Problem Active 2019-11-09 Memoria mellitus mellitus 21:49:41 l type 2 type 2 [place] (disorder) (disorder) Active Problem 11/09/2019 [facility] Hyperlipid Hyperlipi Problem Active 2019-11-09 Memoria emia demia 21:49:41 l (disorder) (disorder) Ralph rmann Active Problem 11/09/2019 [facility] Lumbar Lumbar Problem Active 2019-11-09 Mem oria radiculopa radiculopa 21:49:41 l thy thy [place] (disorder) (disorder) Active Problem 11/09/2019 [facility] Memory Memory Problem Active 2019-11-09 Blayne monty impairment impairment 21:49:41 l (finding) (finding) Herm felicitas Active Problem 11/09/2019 [facility] Tremor Tremor Problem Active 2019-11-09 Blayne monty (finding) (finding) 21:49:41 l Active [place] Problem 11/09/2019 [facility] Transient Transient Problem Active 2019-11-09 Memoria ischemic ischemic 21:49:41 l attack attack [place] (disorder) (disorder) Active Problem 11/09/2019 [facility] ALTERED ALTERED Diagnosis Active 2014-03-03 Memoria MENTAL MENTAL 15:36:00 l STATUS STATUS [place] Active [facility] Allergies, Adverse Reactions, Alerts Allergy Allergy Status Severity Reaction(s) Onset Inactive Treating Comm ents Source Name Type Date Date Clinician codeine codeine Active Memoria l [place] penicill penicill Active Memori a in in l [place] codeine Adverse Active Info Not Common Reaction Available [facility] PCN Adverse Active Info Not Common Reaction Available [facility] bee Adverse Active Info Not Common sting Reaction Available [facility] Social History Social Habit Start Date Stop Date Quantity Comments Source Social History 2014-02-18 2014-02-18 [facility] H catieann 06:59:21 06:59:21 Medications Ordered Filled Start Stop Current Ordering Indication Dosage Frequency Signature Comments Components Source Medication Medication Date Date Medication? Clinician (SIG) Name Name Blood Blood 2020-0 Yes Lorraine as Common Glucose Glucose 6-25 Millender directed Spirit Test Test 00:00: - [facility] Blood Blood 2020-0 Yes Lorraine as Common Glucose Glucose 6-25 Millender directed Spirit Monitor Monitor 00:00: - [facility] System System 00 [facility] Lancets Lancets 2020-0 Yes Lorraine as Common 6-25 Millender directed Spirit 00:00: - [facility] donepezil 5 2020-0 Yes = 1 tab, Me moria mg oral 3-09 PO, l tablet 13:51: Bedtime, # Juju nn 00 90 tab, 3 Refill(s), Pharmacy: [facility][id number] Aspirin 81 2020-0 Yes 81 mg = 1 Me moria MG Enteric 3-05 tab, PO, l Coated 22:38: Daily, # [place] Tablet 00 90 tab, 3 Refill(s) donepezil 5 2020-0 Yes = 1 tab, Me moria mg oral 3-05 PO, l tablet 22:09: Bedtime, # Juju nn 00 30 tab, 2 Refill(s), Pharmacy: [id number] Mupirocin Mupirocin 2020-0 2020- No Lorraine 1 C ommon 05-14 02- Millender applicatio Spi rit 00:00: 00:00 n to - [facility] 00 :00 affected [facility] Metformin 2019-0 Yes 500 mg, Memor ia [...] 60 tab, 0 coated Refill(s) tablet eszopiclone 2018- Yes 3 mg = 1 Me moria 3 mg oral 9-25 tab, PO, l tablet 16:58: Bedtime, PRN for insomnia, 0 Refill(s) Donepezil 2019- Yes 5 mg = 1 Blayne monty hydrochlori 7-09 tab, PO, l de 5 MG 17:24: Bedtime, # Huan polk Oral Tablet 00 30 tab, 3 [Aricept] Refill(s), Pharmacy: [id number] Amlodipine 2019- Yes 10 mg = 1 [...] (Same as: l Capsule 05:00: Neurontin) [Neurontin] 00 Simvastatin 2013-04 No Notes: Blayne [...] tab, PO, l tablet 19:47: Daily, # [place] 00 30 tab, 0 Refill(s) omeprazole 2013-04 [...] tab, PO, l Tablet 19:47: Daily, # [place] [Zetia] 00 30 tab, 0 Refill(s) gabapentin 2013-04 Yes 300 mg = 1 M emoria 300 MG Oral 0-29 cap, PO, l Capsule 19:47: TID, # 90 Juju nn [Neurontin] 00 cap, 0 Refill(s) clopidogrel 2013-04 No Notes: Blayne monty 0-29 (Same As: l 14:00: Plavix) [place] Aspirin 325 2013-04 No Notes: (Do Memoria MG Enteric 0-29 Not Crush) l Coated 14:00: Do not [place] Tablet 00 crush or chew. Keppra 2013-04 No Notes: Memoria 0-29 (Same l 09:30: as:Keppra) [place] tramadol 2013-04 No Notes: Not Mem oria hydrochlori 0-29 to exceed l de 50 MG 09:12: 400mg/day. Her cm Oral Tablet 00 (Same As: Ultram) Lorazepam 2013-04 No Notes: Memori a 0-29 (Same as: l 06:30: Ativan) [place] Loratadine 2013-04 No Notes: 1 Mem oria 0-29 hr before l 05:28: meals [place] 00 (Same as: Claritin) Ondansetron 2013-04 No [...] No 0 Memoria 0-29 Refill(s) l 03:43: [place] 00 Losartan 2013-04 No 0 Memoria 0-29 [...] tab, PO, l Oral Tablet 22:35: QID-Before [place] [Reglan] 00 Meals, as needed for gastropare [...] No 105mmHg Blayne monty 0-28 l 20:43: [place] Acetaminoph 2013-04 No Notes: Do M emoria en 0-28 not exceed l 20:43: 4 gm/day. [place] (Same as: Tylenol) Sodium 2013-04 No 1,000 mL, Memori a Chloride 0-28 Rate: 100 l 0.154 20:43: ml/hr, [place] MEQ/ML 00 Infuse Injectable over: 10 Solution hr, Route: IV, Dosing Weight 81.818 kg, Total Volume: 1,000, Start date: 02/17/14 15:43:00, Duration: 30 day, Stop date: 03/19/14 15:42:00 Plavix 2013-04 No Notes: ( Memoria 0-28 Same as: l 20:42: Plavix) [place] 00 aspirin 2013-04 No Notes: Memoria 0-28 Take with l 20:42: food. [place] 00 Sodium 2013-04 No 1,000 mL, Memori a Chloride 0-28 1,000 l 0.154 20:16: ml/hr, [place] MEQ/ML 00 Infuse Injectable Over: 1 Solution hr, Route: IV, 1,000, Drug form: INJ, ONCE, Priority: STAT, Dosing Weight 81.818 kg, Start date: 02/17/14 15:16:00, Duration: 1 doses or times, Stop date: 02/17/14 15:16:00 iodixanol 2013-04 No Special Memor ia 0-28 Instructio l 18:55: ns: Dose = [place] 00 2.2ml/kg, Max dose = 150ml -- "To be infused by Radiology Staff ONLY" iodixanol 2013-04 No Special Memor ia 0-28 Instructio l 18:51: ns: Dose = [place] 00 2.2ml/kg, Max dose = 150ml -- "To be infused by Radiology Staff ONLY" Sodium 2013-04 No 1,000 mL, Memori a Chloride 0-28 1,000 l 0.154 17:51: ml/hr, [place] MEQ/ML 00 Infuse Injectable Over: 1 Solution hr, Route: IV, 1,000, Drug form: INJ, ONCE, Priority: STAT, Dosing Weight 81.818 kg, Start date: 02/17/14 12:51:00, Duration: 1 doses or times, Stop date: 02/17/14 12:51:00 Saline 2013-04 No Notes: Memoria Flush 0.9% 0-28 (Same as: l 16:53: BD [place] 00 Posiflush) Simvastatin Simvastatin Yes Lorraine 1 tablet Common Millender in the [facility] Bentyl Bentyl Yes Lorraine 1 tablet Common Millender [facility] Protonix Protonix Yes Lorraine 1 tablet Co mmon Millender [facility] Protonix Protonix Yes Lorraine 1 tablet Co mmon Millender [facility] Lotrisone Lotrisone Yes Lorraine 1 Comm on Millender applicatio Spir it n to - [facility] affected [facility] Bactroban Bactroban Yes Lorraine 1 Comm on Millender applicatio Spir it n to - [facility] affected [facility] Gabapentin Gabapentin Yes Lorraine 1 capsule Common Millender [facility] Metoprolol Metoprolol Yes Lorraine 1 tablet Common Tartrate Tartrate Millender [facility] Metoprolol Metoprolol Yes Lorraine 1 tablet Common Tartrate Tartrate Millender [facility] Ativan Ativan Yes Lorraine 1 tablet Common Millender [facility] Lunesta Lunesta Yes Lorraine 1 tablet Comm on Millender immediatel Spir it y before - [facility] bedtime [facility] Donepezil Donepezil Yes Lorraine 1 tablet Common HCl HCl Millender at bedtime Spir [facility] EpiPen EpiPen Yes Lorraine as Common 2-Ney 2-Ney Millender directed Spir [facility] Bactrim DS Bactrim DS Yes Lorraine 1 tablet Common Millender [facility] Effexor XR Effexor XR Yes Lorraine 3 capsules Common Millender [facility] Vitamin D Vitamin D Yes Lorraine 1 tablet Common Millender [facility] Atorvastati Atorvastati Yes Lorraine 1 tablet Common n Calcium n Calcium Millender in evening [facility] Metformin Metformin Yes Lorraine 1 tablet Common HCl HCl Millender [facility] Amlodipine Amlodipine Yes Lorraine 1 tablet Common Besylate Besylate Millender Sp [facility] Cardura Cardura Yes Lorraine 1 tablet Comm on Millender in evening Spir it - [facility] Immunizations Ordered Immunization Filled Immunization Date Status Commen ts Source Name Name TDAP > 7 TDAP > 7 2019-05-30 Completed Common Spirit Years-Adacel Years-Adacel 00:00:00 - [facility] Vital Signs Vital Name Observation Time Observation Value Comments Source Systolic (mm Hg) 2019-06-26 21:51:00 Blayne rial [place] Diastolic (mm Hg) 2019-06-26 21:51:00 Mem orial [place] Heart Rate 2019-06-26 21:51:00 [facility] [place] Respitory Rate 2019-06-26 21:51:00 Memori al [place] Height 2019-06-26 21:51:00 157.48 cm [facility] [place] Weight 2019-06-26 21:51:00 [facility] [place] BMI Calculated 2019-06-26 21:51:00 Memori al [place] Systolic (mm Hg) 2019-01-15 16:55:00 Blayne rial [place] Diastolic (mm Hg) 2019-01-15 16:55:00 Mem orial [place] Heart Rate 2019-01-15 16:55:00 [facility] [place] Respitory Rate 2019-01-15 16:55:00 Memori al [place] Height 2019-01-15 16:55:00 157.48 cm Memorial [place] Weight 2019-01-15 16:55:00 [facility] [place] BMI Calculated 2019-01-15 16:55:00 Memori al [place] Weight 2018-10-29 17:07:00 [facility] [place] BMI Calculated 2018-10-29 17:07:00 Memori al [place] Height 2018-10-29 17:07:00 157.48 cm [facility] [place] Systolic (mm Hg) 2018-10-29 17:07:00 Blayne rial [place] Diastolic (mm Hg) 2018-10-29 17:07:00 Mem orial [place] Respitory Rate 2018-10-29 17:07:00 Memori al [place] Heart Rate 2018-10-29 17:07:00 [facility] [place] Weight 2018-09-27 20:03:00 [facility] [place] BMI Calculated 2018-09-27 20:03:00 Memori al [place] Height 2018-09-27 20:03:00 154.94 cm [facility] [place] Respitory Rate 2018-09-27 20:03:00 Memori al Gonsaol Systolic (mm Hg) 2018-09-27 20:03:00 Blayne rial [place] Diastolic (mm Hg) 2018-09-27 20:03:00 Mem orial [place] Heart Rate 2018-09-27 20:03:00 Memorial [place] Systolic (mm Hg) 2014-02-18 23:00:00 Blayne rial [place] Diastolic (mm Hg) 2014-02-18 23:00:00 Mem orial [place] Respitory Rate 2014-02-18 23:00:00 Memori al [place] Systolic (mm Hg) 2014-02-18 22:00:00 Blayne rial [place] Diastolic (mm Hg) 2014-02-18 22:00:00 Mem orial [place] Respitory Rate 2014-02-18 22:00:00 Memori al [place] Systolic (mm Hg) 2014-02-18 21:00:00 Blayne rial [place] Diastolic (mm Hg) 2014-02-18 21:00:00 Mem orial [place] Respitory Rate 2014-02-18 21:00:00 Memori al [place] Temperature Oral (F) 2014-02-18 03:12:00 99.5 F [facility] [place] Height 2014-02-17 16:42:00 172.72 cm [facility] [place] BMI Calculated 2014-02-17 16:42:00 Memori al [place] Weight 2014-02-17 16:42:00 [facility] [place] Heart Rate 2014-02-17 16:42:00 [facility] [place] Procedures Procedure Date / Time Performed Performing Clinician Sourc e Back fusion [facility] [place] Encounters Start End Encounter Admission Attending Care Care Encounter Source Date/Time Date/Time Type Type Clinicians Facility Department ID 2021-08-31 [id number] Common 10:17:01 [facility] 2021-07-01 Out[facility] [id number] Common 13:41:00 [facility] 2021-05-18 [facility] [id number] Common 14:19:31 Ketannee 97079 [facility] 2021-05-18 Outpatient STLMLC STLMLC [id number] Common 13:35:35 [facility] 2021-05-18 Outpatient Damián, STLMLC STLMLC [id number] Common 13:33:23 Haven [facility] 2021-05-18 Outpatient Damián, STLMLC STLMLC [id number] Common 12:42:13 Haven 36432 [facility] 2021-05-18 Outpatient Damián, STLMLC STLMLC [id number] Common 12:18:00 Haven 45694 [facility] 2021-05-18 Outpatient Damián, STLMLC STLMLC [id number] Common 12:04:18 Haven 01028 [facility] 2021-05-18 Outpatient Damián, STLMLC STLMLC [id number] Common 12:02:58 Haven 56829 [facility] 2021-05-18 Outpatient STLMLC STLMLC [id number] Common 12:02:39 61923 [facility] 2021-05-18 Outpatient STLMLC STLMLC [id number] Common 11:59:31 12568 [facility] 2021-05-18 Outpatient Millender, STLMLC STLMLC [id number] Common 11:47:59 Lorraine 99199 [facility] 2021-05-18 Outpatient Millender, STLMLC STLMLC [id number] Common 11:45:40 Lorraine 94174 [facility] 2021-05-18 Outpatient Millender, STLMLC STLMLC [id number] Common 11:26:19 Lorraine 32702 [facility] 2021-05-18 Outpatient Millender, STLMLC STLMLC [id number] Common 11:26:07 Lorraine 94630 [facility] 2021-05-18 Outpatient Millender, STLMLC STLMLC [id number] Common 11:16:08 Lorraine 56379 [facility] 2021-05-18 Outpatient Millender, STLMLC STLMLC [id number] Common 11:02:11 Lorraine 59042 [facility] 2021-05-18 Outpatient Millender, STLMLC STLMLC [id number] Common 11:01:50 Lorraine 28417 [facility] 2021-07-04 2021-07-04 ambulatory STLMLC STLMLC [id number] Common 00:00:00 00:00:00 [facility] 2021-06-16 2021-06-16 ambulatory STLMLC STLMLC [id number] Common 00:00:00 00:00:00 [facility] 2021-03-28 2021-03-28 ambulatory STLMLC STLMLC [id number] Common 00:00:00 00:00:00 [facility] 2020-12-22 2020-12-22 Outpatient STLMLC STLMLC [id number] Common 00:00:00 00:00:00 [facility] 2020-12-16 2020-12-16 Outpatient STLMLC STLMLC [id number] Common 00:00:00 00:00:00 [facility] 2020-12-03 2020-12-03 Outpatient STLMLC STLMLC [id number] Common 00:00:00 00:00:00 [facility] 2020-11-29 2020-11-29 Outpatient STLMLC STLMLC [id number] Common 00:00:00 00:00:00 [facility] 2020-04-30 2020-04-30 Outpatient STLMLC STLMLC [id number] Common 00:00:00 00:00:00 [facility] 2020-04-28 2020-04-28 Outpatient STLMLC STLMLC [id number] Common 00:00:00 00:00:00 [facility] 2020-04-07 2020-04-07 Outpatient STLMLC STLMLC [id number] Common 00:00:00 00:00:00 [facility] 2020-04-02 2020-04-02 Outpatient STLMLC STLMLC [id number] Common 00:00:00 00:00:00 [facility] 2020-03-17 2020-03-17 Outpatient STLMLC STLMLC [id number] Common 00:00:00 00:00:00 [facility] 2020-03-12 2020-03-12 Outpatient STLMLC STLMLC [id number] Common 00:00:00 00:00:00 [facility] 2020-03-08 2020-03-08 Outpatient STLMLC STLMLC [id number] Common 00:00:00 00:00:00 [facility] 2020-03-04 2020-03-04 Outpatient STLMLC STLMLC [id number] Common 00:00:00 00:00:00 [facility] 2020-03-03 2020-03-03 Outpatient STLMLC STLMLC [id number] Common 00:00:00 00:00:00 [facility] 2020-02-27 2020-02-27 Outpatient STLMLC STLMLC [id number] Common 00:00:00 00:00:00 [facility] 2020-01-05 2020-01-05 [id number] Common 11:20:00 11:20:[address] [facility] [address] [facility] 2020-01-05 2020-01-05 Outpatient STLMLC STLMLC [id number] Common 00:00:00 00:00:00 [facility] 2019-12-24 2019-12-24 [facility] [id number] Common 17:37:00 17:37:00 [facility] [address] [facility] 2019-12-15 2019-12-15 [facility] [id number] Common 13:00:00 13:00:00 [facility] [address] [facility] 2019-12-04 2019-12-04 [facility] [id number] Common 08:33:00 08:33:00 [facility] [address] [facility] 2019-11-07 2019-11-07 Ambulatory nullFlavo MNA [id number] Memoria 19:00:00 19:00:00 Pre-Reg r Neurology 08 l Ulises Brush 2019-11-07 2019-11-07 Ambulatory nullFlavo MNA [id number] Memoria 19:00:00 19:00:00 Pre-Reg r Neurology 07 l Ulises Brush 2019-11-07 2019-11-07 Outpatient MHIE MHIE [id number] Memoria 14:00:00 14:00:00 08 l Gons[place] 2019-11-07 2019-11-07 Outpatient MHIE MHIE [id number] Memoria 14:00:00 14:00:00 07 l [place] 2019-11-07 2019-11-07 Outpatient Tucker MHMISCHER MHMISCHER [id number] 14:00:00 14:00:00 Oscar Srinivasan Nayak 2019-11-07 2019-11-07 Outpatient Tucker MHMISCHER MHMISCHER [id number] 14:00:00 14:00:00 Oscar 08 Nael 2019-10-16 2019-10-16 [facility] [id number] Common 08:38:00 08:38:00 [facility] 2019-10-12 2019-10-12 [facility] [id number] Common 18:27:00 18:27:00 [facility] 2019-10-03 2019-10-03 [facility] [id number] Common 10:20:00 10:20:00 [facility] 2019-06-26 2019-06-27 Outpatient nullFlavo MNA [id number] Memoria 21:00:00 05:59:59 r Neurology 06 l Ulises Pressleyann 2019-06-26 2019-06-26 Outpatient SACHIN CeballosMISCHER MHMISCHER [id number] 15:00:00 23:59:59 Oscar Rocael Nael 2019-06-26 2019-06-26 Outpatient MHIE MHIE [id number] Memoria 15:00:00 15:00:00 06 l [place] 2019-06-03 2019-06-03 [facility] [id number] Common 03:07:00 03:07:[address] [facility] [address] [facility] 2019-05-30 2019-05-30 [facility] [id number] Common 15:00:00 15:00:[address] [facility] 2019-05-19 2019-05-19 [facility] [id number] Common 19:21:00 19:21:[address] [facility] 2019-05-14 2019-05-14 Out[facility] [id number] Common 00:12:00 00:12:[address] [facility] 2019-05-13 2019-05-13 [facility] [id number] Common 23:58:00 23:58:00 [address] [facility] [address] [facility] 2019-05-13 2019-05-13 [facility] [id number] Common 13:45:00 13:45:00 t [facility] [address] [facility] 2019-03-18 2019-03-20 Outside nullFlavo MNA [id number] Memoria 18:48:37 05:59:59 Medical r Neurology 00 l Tracie Pressleyann 2019-03-18 2019-03-19 Outpatient MHMISCHER MHMISCHER [id number] 12:48:37 23:59:59 00 2019-02-04 2019-02-04 Ambulatory nullFlavo MNA [id number] Memoria 18:00:00 18:00:00 Pre-Reg r Neurology 05 l Ulises Brush 2019-02-04 2019-02-04 Outpatient MHIE MHIE [id number] Memoria 13:00:00 13:00:00 05 clara G[place] 2019-02-04 2019-02-04 Outpatient JESUS CeballosSCHBHASKAR MHMISCHER [id number] 13:00:00 13:00:00 Oscar Nayak 2019-01-29 2019-01-29 Ambulatory nullFlavo MNA [id number] Memoria 19:15:00 19:15:00 Pre-Reg r Neurology 04 l Ulises Brush 2019-01-29 2019-01-29 Outpatient MHIE MHIE [id number] Memoria 14:15:00 14:15:00 04 clara G[place] 2019-01-29 2019-01-29 Outpatient JESUS CeballosSCHER MISCHER [id number] 14:15:00 14:15:00 Oscar 04 Nael 2019-01-15 2019-01-16 Outpatient nullFlavo MNA [id number] Memoria 16:30:00 04:59:59 r Neurology 03 clara Pressleyann 2019-01-15 2019-01-15 Outpatient JESUS CeballosSCHER MISCHER [id number] 11:30:00 23:59:59 Oscar 03 Nael 2019-01-15 2019-01-15 Outpatient MHIE MHIE [id number] Memoria 11:30:00 11:30:00 03 clara G[place] 2018-12-10 2018-12-10 Ambulatory nullFlavo MNA [id number] Memoria 16:15:00 16:15:00 Pre-Reg r Neurology 02 clara [place] G[place] 2018-12-10 2018-12-10 Outpatient MHIE MHIE [id number] Memoria 11:15:00 11:15:00 02 clara [place] 2018-12-10 2018-12-10 Outpatient JESUS CeballosSCHER MISCHER [id number] 11:15:00 11:15:00 Oscar 02 Nael 2018-10-29 2018-10-30 Outpatient nullFlavo MNA [id number] Memoria 16:45:00 04:59:59 r Neurology 01 clara [place] G[place] 2018-10-29 2018-10-29 Outpatient JESUS CeballosSCHER MISCHER [id number] 11:45:00 23:59:59 Oscar 01 Nael 2018-10-29 2018-10-29 Outpatient MHIE MHIE [id number] Memoria 11:45:00 11:45:00 01 clara [place] 2018-09-27 2018-09-28 Outpatient nullFlavo MNA [id number] Memoria 19:45:00 04:59:59 r Neurology 00 clara [place] G[place] 2018-09-27 2018-09-27 Outpatient JESUS CeballosSCHER MISCHER [id number] 14:45:00 23:59:59 Oscar 00 Nael 2014-02-17 2014-02-19 Inpatient Anila [facility] [id number] Memoria 16:41:00 02:00:00 lillian Brush 65 l [facility] 2014-02-17 2014-02-18 Outpatient Serafin [id number] 11:41:00 21:00:00 Susannah [id number] Radha [id number] Results Test Description Test Time Test Comments Results Result Comments Source SPECIAL CHEMISTRY 2014-02-18 20:27:20 Test Item Value Reference Range Interpretation Comme nts Hgb A1C (test code = Hgb A1C) 6.[address] [facility], [id number] 17:20:44 Test Item Value Reference Range Interpretation Comments CHD Risk (test code = CHD Risk) 3.80 3.90-5.[address] [facility], [id number] 17:20:44 Test Item Value Reference Range Interpretation Comments Chol (test code = Chol) [address] [facility], [id number] 17:20:44 Test Item Value Reference Range Interpretation Comments HDL (test code = HDL) [address] [facility], [id number] 17:20:44 Test Item Value Reference Range Interpretation Comments Trig (test code = Trig) [address] [facility], [id number] 17:20:44 Test Item Value Reference Range Interpretation Comments VLDL (test code = VLDL) [address] [facility], [id number] 17:20:44 Test Item Value Reference Range Interpretation Comments LDL (Calculated) (test code = LDL 87 (Calculated)) [facility]2014-10-29 10:15:00 Test Item Value Reference Range Interpretation Comments % Satur Fe (test code = % Satur Fe) 34 12-57 [facility]2014-10-29 10:15:00 Test Item Value Reference Range Interpretation Comments TIBC (test code = TIBC) 342 228-428 [facility]2014-10-29 10:15:00 Test Item Value Reference Range Interpretation Comments UIBC (test code = UIBC) 227 110-370 [facility]2014-10-29 10:15:00 Test Item Value Reference Range Interpretation Comments Iron (test code = Iron) 115 30-160 [facility] [id number] 10:15:00 Test Item Value Reference Range Interpretation Comments Ferritin Lvl (test code = Ferritin Lvl) 97 5-204 [facility] [id number] 20:32:24 Test Item Value Reference Range Interpretation Comments Lactic Acid Lvl (test code = Lactic 1.9 0.5-2.2 Acid Lvl) [facility] [id number] 19:18:07 Test Item Value Reference Range Interpretation Comments UA Mucus (test code = None Seen (02/17/14 UA Mucus) 2:18 PM) [facility] [id number] 19:18:07 Test Item Value Reference Range Interpretation Comments UA Sq Epi (test code = UA Sq Epi) Few /LPF [facility] [id number] 19:18:07 Test Item Value Reference Range Interpretation Comments UA RBC (test None Seen See_Comment [Automated mes paras] code = UA RBC) (02/17/14 2:18 The system which PM) generated this result transmitted ref erence range: <=2. The reference range was not used to int erpret this result as normal/abnormal . [facility] [id number] 19:18:07 Test Item Value Reference Range Interpretation Comments UA Bacteria (test code = UA Occasional /HPF Bacteria) [facility] [id number] 19:18:07 Test Item Value Reference Range Interpretation Comments UA WBC (test code = UA WBC) 0-2 /HPF [facility] [id number] 19:18:07 Test Item Value Reference Range Interpretation Comments UA Spec Grav (test code = UA Spec 1.020 1 Grav) [facility] [id number] 19:18:07 Test Item Value Reference Range Interpretation Comments UA Color (test code = Yellow *NA*(02/17/14 UA Color) 2:18 PM) [facility] [id number] 19:18:07 Test Item Value Reference Range Interpretation Comments UA Turbidity (test code = Clear (02/17/14 2:18 UA Turbidity) PM) [facility] [id number] 19:18:07 Test Item Value Reference Range Interpretation Comments UA Leuk Est (test Negative (02/17/14 2:18 code = UA Leuk Est) PM) [facility] AND [id number] 19:18:07 Test Item Value Reference Range Interpretation Comments UA Nitrite (test code Negative (02/17/14 2:18 = UA Nitrite) PM) [facility] AND [id number] 19:18:07 Test Item Value Reference Range Interpretation Comments UA Urobilinogen (test code = UA 0.2 0.1-1.0 Urobilinogen) [facility] AND [id number] 19:18:07 Test Item Value Reference Range Interpretation Comments UA Blood (test code = Negative (02/17/14 2:18 UA Blood) PM) [facility] AND [id number] 19:18:07 Test Item Value Reference Range Interpretation Comments UA Bili (test code = Negative *NA*(02/17/14 UA Bili) 2:18 PM) [facility] AND [id number] 19:18:07 Test Item Value Reference Range Interpretation Comments UA Glucose (test code Negative (02/17/14 2:18 = UA Glucose) PM) [facility] AND [id number] 19:18:07 Test Item Value Reference Range Interpretation Comments UA Ketones (test code Negative *NA*(02/17/14 = UA Ketones) 2:18 PM) [facility] AND [id number] 19:18:07 Test Item Value Reference Range Interpretation Comments UA Protein (test code Negative (02/17/14 2:18 = UA Protein) PM) [facility] AND [id number] 19:18:07 Test Item Value Reference Range Interpretation Comments UA pH (test code = UA pH) 6.5 1 5.0-8.0 [facility] [id number] 17:09:00 Test Item Value Reference Range Interpretation Comments CK MB (test code = CK MB) 3.4 0.5-3.6 [facility] [id number] 17:09:00 Test Item Value Reference Range Interpretation Comments Troponin-I (test code 0.07 See_Comment [Auto mated message] The = Troponin-I) system which g enerated this result transmit yossi reference range : <=0.40. The reference r joe was not used to interpr et this result as devendra l/abnormal. [facility] HospitalTabletKioskCARHomejoy [id number] 17:09:00 Test Item Value Reference Range Interpretation Comments Total CK (test code = Total CK) 123 12-191 [facility] [id number] 17:09:00 Test Item Value Reference Range Interpretation Comments CK MB Index (test 2.8 See_Comment [Automate d message] The code = CK MB Index) system w [facility] generated this result transmit yossi reference range : <=2.5. The reference range was not used to interpr et this result as devendra l/abnormal. [facility] [id number] 17:09:00 Test Item Value Reference Range Interpretation Comments eGFR (test code = eGFR) 28 [facility]2014-10-28 17:09:00 Test Item Value Reference Range Interpretation Comments Creatinine Lvl (test code = Creatinine 1.4 0.5-1.4 Lvl) [facility] [id number] 17:09:00 Test Item Value Reference Range Interpretation Comments Glucose Lvl (test code = Glucose Lvl) 211 70-99 [facility] [id number] 17:09:00 Test Item Value Reference Range Interpretation Comments BUN (test code = BUN) 13 7-22 [facility] [id number] 17:09:00 Test Item Value Reference Range Interpretation Comments B/C Ratio (test code = B/C Ratio) 9 6-25 [facility] [id number] 17:09:00 Test Item Value Reference Range Interpretation Comments AGAP (test code = AGAP) 16.8 10.0-20.0 [facility] [id number] 17:09:00 Test Item Value Reference Range Interpretation Comments Calcium Lvl (test code = Calcium Lvl) 8.8 8.5-10.5 [facility] [id number] 17:09:00 Test Item Value Reference Range Interpretation Comments CO2 (test code = CO2) 23 24-32 [facility] [id number] 17:09:00 Test Item Value Reference Range Interpretation Comments Chloride Lvl (test code = Chloride Lvl) 105 95-109 [facility]2014-10-28 17:09:00 Test Item Value Reference Range Interpretation Comments Sodium Lvl (test code = Sodium Lvl) 141 135-145 [facility]2014-10-28 17:09:00 Test Item Value Reference Range Interpretation Comments Potassium Lvl (test code = Potassium 3.8 3.5-5.1 Lvl) [facility]2014-10-28 17:09:00 Test Item Value Reference Range Interpretation Comments A/G Ratio (test code = A/G Ratio) 1.0 0.7-1.6 [facility]2014-10-28 17:09:00 Test Item Value Reference Range Interpretation Comments Total Protein (test code = Total 7.0 6.4-8.4 Protein) [facility]2014-10-28 17:09:00 Test Item Value Reference Range Interpretation Comments Albumin Lvl (test code = Albumin Lvl) 3.5 3.5-5.0 [facility]2014-10-28 17:09:00 Test Item Value Reference Range Interpretation Comments AST (test code = AST) 24 See_Comment [Auto mated message] The system which ge nerated this result transmit yossi reference range : <=37. The reference range was not used to interpr et this result as devendra l/abnormal. [facility]2014-10-28 17:09:00 Test Item Value Reference Range Interpretation Comments ALT (test code = ALT) 28 See_Comment [Auto mated message] The system which ge nerated this result transmit yossi reference range : <=65. The reference range was not used to interpr et this result as devendra l/abnormal. [facility]2014-10-28 17:09:00 Test Item Value Reference Range Interpretation Comments Bili Total (test code = Bili Total) 0.6 0.2-1.3 [facility]2014-10-28 17:09:00 Test Item Value Reference Range Interpretation Comments Alk Phos (test code = Alk Phos) 94 39-136 [facility]2014-10-28 17:09:00 Test Item Value Reference Range Interpretation Comments Globulin (test code = Globulin) 3.5 2.0-4.0 [facility]2014-10-28 17:09:00 Test Item Value Reference Range Interpretation Comments Lactic Acid Lvl (test code = Lactic 4.9 0.5-2.2 Acid Lvl) [id number] 17:09:00 Test Item Value Reference Range Interpretation Comments INR (test code = INR) 0.95 0.85-1.17 [id number] 17:09:00 Test Item Value Reference Range Interpretation Comments PT (test code = PT) 12.7 s 12.0-14.7 [facility] [id number] 17:09:00 Test Item Value Reference Range Interpretation Comments Platelet (test code = Platelet) 205 133-450 [facility] H[id number] 17:09:00 Test Item Value Reference Range Interpretation Comments MCH (test code = MCH) 29.0 pg 27.0-31.0 [facility] [id number] 17:09:00 Test Item Value Reference Range Interpretation Comments MCHC (test code = MCHC) 33.7 32.0-36.0 [facility] H[id number] 17:09:00 Test Item Value Reference Range Interpretation Comments RDW (test code = RDW) 13.6 11.5-14.5 [facility] H[id number] 17:09:00 Test Item Value Reference Range Interpretation Comments Hct (test code = Hct) 51.8 36.0-48.0 [facility] [id number] 17:09:00 Test Item Value Reference Range Interpretation Comments MCV (test code = MCV) 86.2 80.0-98.0 [facility] H[id number] 17:09:00 Test Item Value Reference Range Interpretation Comments Hgb (test code = Hgb) 17.4 12.0-16.0 [facility] H[id number] 17:09:00 Test Item Value Reference Range Interpretation Comments RBC (test code = RBC) 6.01 4.20-5.40 [facility] H[id number] 17:09:00 Test Item Value Reference Range Interpretation Comments MPV (test code = MPV) 11.5 7.4-10.4 [facility] H[id number] 17:09:00 Test Item Value Reference Range Interpretation Comments WBC (test code = WBC) 14.1 3.7-10.4 [facility] H[id number] 17:09:00 Test Item Value Reference Range Interpretation Comments PTT (test code = PTT) 21.8 s 22.9-35.8 [facility] H[id number] 17:09:00 Test Item Value Reference Range Interpretation Comments Plt Morph (test code = Normal (02/17/14 12:09 Plt Morph) PM) [facility] Hospit[id number] 17:09:00 Test Item Value Reference Range Interpretation Comments RBC Morph (test code = Normal (02/17/14 12:09 RBC Morph) PM) [facility] H[id number] 17:09:00 Test Item Value Reference Range Interpretation Comments Eosinophils # (test code 0.1 See_Comment [A utomated message] The = Eosinophils #) system whic h generated this result tra nsmitted reference range : <=0.5. The reference r joe was not used to int erpret this result as normal/abnormal . [facility] H[id number] 17:09:00 Test Item Value Reference Range Interpretation Comments Basophils # (test code 0.1 See_Comment [Aut omated message] The = Basophils #) system which generated this result tra nsmitted reference range : <=0.2. The reference r joe was not used to int erpret this result as normal/abnormal . [facility] Ho[id number] 17:09:00 Test Item Value Reference Range Interpretation Comments Segs-Bands # (test code = Segs-Bands #) 10.8 1.5-8.1 [facility] H[id number] 17:09:00 Test Item Value Reference Range Interpretation Comments Monocytes # (test code 0.6 See_Comment [Aut omated message] The = Monocytes #) system which generated this result tra nsmitted reference range : <=0.8. The reference r joe was not used to int erpret this result as normal/abnormal . [facility] H[id number] 17:09:00 Test Item Value Reference Range Interpretation Comments Lymphocytes # (test code = Lymphocytes 2.5 1.0-5.5 #) [facility] HospitalHdfregdIRBRJMACHT3487-26-23 17:09:00 Test Item Value Reference Range Interpretation Comments Lymphocytes (test code = Lymphocytes) 17.5 20.0-40.0 [facility] Hos[id number] 17:09:00 Test Item Value Reference Range Interpretation Comments Segs (test code = Segs) 77.0 45.0-75.0 [facility] HospitalMpoihrgDOGMJBKSRQ9017-01-65 17:09:00 Test Item Value Reference Range Interpretation Comments Monocytes (test code = Monocytes) 4.3 2.0-12.0 [facility] HospitalKrsvsstFQOOXWRUCB3556-52-19 17:09:00 Test Item Value Reference Range Interpretation Comments Basophils (test code = 0.4 See_Comment [Aut omated message] The Basophils) system which ge nerated this result tra nsmitted reference range : <=1.0. The reference r joe was not used to int erpret this result as normal/abnormal . [facility] HospitalCkukmdxCZRZNUBWQT4796-62-09 17:09:00 Test Item Value Reference Range Interpretation Comments Eosinophils (test code = 0.8 See_Comment [A utomated message] The Eosinophils) system which ge nerated this result tra nsmitted reference range : <=4.0. The reference r joe was not used to int erpret this result as normal/abnormal . [facility]
[2022-01-23 14:41] LABS: Urine Blood Negative (Negative); Urine Glucose Negative (Negative); Urine Protein Trace (Negative); Urine Specific Gravity 1.025 (1.005-1.030)
[2022-01-23 14:55] LABS: Absolute Lymphocytes (CBC) 1.8 K/uL (0.7-4.9); Hematocrit 43.4 % (36.0-45.0); Lymphocytes % 22.9 % (15.3-44.8); MCV 88.8 fL (80-100); MPV 9.8 fL (7.6-11.3); RBC Red Blood Cell Count 4.88 M/uL (3.86-4.86)
[2022-01-23] MEDS ORDERED: MORPHINE 2 MG/ML SYR ONE (14:55)
[2022-01-23] MEDS ORDERED: ONDANSETRON 4 MG/2 ML VIAL ONE (14:55)
--- NOTE | 2022-01-23 15:04 | RAD REPORT ---
EXAM DESCRIPTION: CT - Abdomen Pelvis Wo Contrast - 01/23/2022 2:52 pm CLINICAL HISTORY: L acute flank pain, r/o kidney stone COMPARISON: Stone Protocol dated 01/30/2019 TECHNIQUE: Axial [address] imaging of the abdomen and pelvis was performed without IV contrast. No IV contrast was given because of allergy, abnormal renal function, patient refusal or physician re quest. No oral contrast administered. All CT scans are performed using dose optimization technique as appropriate and may include automated exposure control or mA/KV adjustment according to patient size. FINDINGS: No suspicious findings in the lung bases. Fibrotic changes are present. The liver, spleen and pancreas show no suspicious findings on non-contrast imaging. Cholecystectomy c lips present with no biliary tree dilatation. No hydronephrosis or suspicious renal mass. Scarring and volume loss changes are present lower pole l eft kidney from prior subtotal resection. No new obstructing or nonobstructing calculi. No significan t adrenal finding. Isodense renal masses and pyelonephritis cannot be excluded in the absence of IV c ontrast. The urinary bladder is without significant finding. No dilated bowel loops or bowel wall thickening. Appendix is normal. There is prominent left-sided di verticulosis but no diverticulitis. No free air, free fluid or inflammatory stranding. No mass or bul ky lymphadenopathy. There is a very small fat only umbilical hernia. No acute or pathologic bone process seen. Degenerative and scoliotic changes are present in the each lumbar spine. IMPRESSION: No hydronephrosis, obstructing calculus or acute finding identified. Isodense masses and pyelonephritis are not excluded on noncontrast imaging. Prominent sigmoid diverticulosis without diverticulitis. Full assessment is limited is the absence of IV contrast.
[2022-01-23 15:08] LABS: Urine Mucus Slight /HPF (None Seen); Urine RBC <5 /HPF (None Seen)
[2022-01-23 15:39] LABS: Albumin 3.6 g/dL (3.4-5.0); Bilirubin Total 0.3 mg/dL (0.2-1.0); Protein, Total 7.3 g/dL (6.4-8.2)
--- NOTE | 2022-01-23 15:42 | EDPHYS ---
Physician Documentation [facility] Name: Amber Acosta Age: 76 yrs Sex: Female : 1945 Arrival Date: 01/23/2022 Time: 14:20 Bed 24 Private MD: JANE Physician Franco Renee HPI: 01/23 14:33 This 76 yrs old Female presents to ER via EMS with complaints of L flank. jr11 14:33 The patient complains of pain in the back and left low back. The pain does not radiate. jr11 Onset: The symptoms/episode began/occurred just prior to arrival. Modifying factors: The symptoms are alleviated by nothing. the symptoms are aggravated by movement. Associated signs and symptoms: Pertinent positives: dysuria, nausea, Pertinent negatives: vomiting. Severity of pain: At its worst the pain was moderate in the emergency department the pain is actually worse. The patient has experienced a previous episode, years ago. denies abdominal complaints. Historical: - Allergies: 14:31 Bees; kb3 14:31 Codeine; kb3 14:31 hydrocodone bitartrate; kb3 14:31 Iodinated Contrast Media - IV Dye; kb3 14:31 Levofloxacin; kb3 14:31 metronidazole; kb3 14:31 PENICILLINS; kb3 14:31 SHELLFISH; kb3 14:31 sulfamethoxazole; kb3 14:31 TRIMETHOPRIM; kb3 14:31 Wasps; kb3 - PMHx: 14:31 Alzheimers; Anxiety; CAD; CVA; Depression; Diabetes - NIDDM; GERD; High Cholesterol; kb3 Hypertension; kidney cancer; Migraines; - Immunization history:: Adult Immunizations up to date, Client reports receiving the 2nd dose of the Covid vaccine, Last tetanus immunization: unknown. - Social history:: Smoking status: Patient denies any tobacco usage or history of. ROS: 14:33 All other systems are negative. jr11 Exam: 14:33 Constitutional: This is a well developed, well nourished patient who is awake, alert, jr11 and in no acute distress. Head/Face: Normocephalic, atraumatic. Eyes: Extra-ocular motions intact. Lids and lashes normal. Conjunctiva and sclera are non-icteric and not injected. Cornea within normal limits. Periorbital areas with no swelling, redness, or edema. ENT: Nares patent. No nasal discharge, no septal abnormalities noted. Oropharynx with no redness, swelling, or masses, exudates, or evidence of obstruction, uvula midline. Mucous membranes moist. Neck: Trachea midline, no thyromegaly or masses palpated, and no cervical lymphadenopathy. Supple, full range of motion without nuchal rigidity, or vertebral point tenderness. No Meningismus. Cardiovascular: Regular rate and rhythm with a normal S1 and S2. No gallops, murmurs, or rubs. Normal PMI, no JVD. No pulse deficits. Respiratory: Lungs have equal breath sounds bilaterally, clear to auscultation and percussion. No rales, rhonchi or wheezes noted. No increased work of breathing, no retractions or nasal flaring. Abdomen/GI: L CVAT Skin: Warm, dry with normal turgor. Normal color with no rashes, no lesions, and no evidence of cellulitis. MS/ Extremity: Pulses equal, no cyanosis. Neurovascular intact. Full, normal range of motion. Neuro: Awake and alert, GCS 15, oriented to person, place, time, and situation. No gross motor or sensory deficits. Vital Signs: 14:20 BP 203 / 137; Pulse 85; Resp 20; Temp 98.4; Pulse Ox 98% ; Weight 58.97 kg; Height 5 kb3 ft. 2 in. (157.48 cm); Pain 5/10; 14:30 BP 171 / 100; Pulse 86; Resp 20; Pulse Ox 100% ; kb3 15:00 BP 164 / 94; Pulse 76; Resp 18; Pulse Ox 96% ; kb3 15:45 BP 172 / 85; Pulse 74; Resp 20; Pulse Ox 96% ; Pain 0/10; kb3 14:20 Body Mass Index 23.78 (58.97 kg, 157.48 cm) kb3 MDM: 14:31 Patient medically screened. [facility] 14:33 Differential diagnosis: nephrolithiasis, pyelonephritis, UTI, msk pain. Data reviewed: [facility] vital signs, nurses notes. 15:41 ED course: Pt with no CT findings, UA no infection, likely msk pain . [facility] 01/23 14:32 Order name: CBC with Diff [facility] 01/23 14:32 Order name: CMP [facility] 01/23 14:32 Order name: Lipase [facility] 01/23 14:32 Order name: UA jr11 01/23 14:32 Order name: UA MICROSCOPIC 11 01/23 14:42 Order name: Urine Dipstick-Ancillary; Complete Time: 15:24 EDMS 01/23 14:32 Order name: CT Abd/Pelvis - Without Contrast jr11 01/23 15:01 Order name: CBC with Automated Diff; Complete Time: 15:24 EDMS 01/23 15:05 Order name: CT; Complete Time: 15:24 EDMS 01/23 15:09 Order name: Urine Microscopic Only; Complete Time: 15:24 EDMS 01/23 16:09 Order name: Comprehensive Metabolic Panel; Complete Time: 16:15 EDMS 01/23 16:09 Order name: Lipase; Complete Time: 16:15 EDMS 01/23 14:32 Order name: IV Saline Lock; Complete Time: 14:46 [facility] 01/23 14:32 Order name: Labs collected and sent; Complete Time: 14:46 [facility] 01/23 16:44 Order name: Diet Regular; Complete Time: 16:44 bd Administered Medications: 15:02 Drug: morphine 2 mg Route: IVP; Infused Over: 4 mins; Site: right forearm; kb3 16:39 Follow up: Response: No adverse reaction; Pain is decreased kb3 15:03 Drug: Zofran (Ondansetron) 4 mg Route: IVP; Site: right forearm; kb3 16:39 Follow up: Response: No adverse reaction; Nausea is decreased kb3 Disposition Summary: 01/23/22 15:42 Discharge Ordered Location: Home [facility] Condition: Stable 11 Diagnosis - flank pain jr11 Discharge Instructions: - Discharge Summary Sheet jr11 - Acute Back Pain, Adult jr11 - Flank Pain, Adult jr11 Forms: - Medication Reconciliation Form jr11 - Thank You Letter jr11 - Antibiotic Education jr11 - Prescription Opioid Use jr11 Signatures: Dispatcher [employer] EDFranco Painter MD MD jr11 Na Evans, RN RN kb3
--- NOTE | 2022-01-23 15:42 | ER ---
Nurse's Notes [facility] Name: Amber Acosta Age: 76 yrs Sex: Female : 1945 Arrival Date: 01/23/2022 Time: 14:20 Bed 24 Private MD: Diagnosis: flank pain Presentation: 01/23 14:20 Method Of Arrival: EMS: [facility] kb3 14:20 Coronavirus screen: Vaccine status: Patient reports receiving the 2nd dose of the covid kb3 vaccine. Client denies travel out of the [place] in the last 14 days. Ebola Screen: Patient negative for fever greater than or equal to 101.5 degrees Fahrenheit, and additional compatible Ebola Virus Disease symptoms Patient denies exposure to infectious person. Patient denies travel to an Ebola-affected area in the 21 days before illness onset. No symptoms or risks identified at this time. Initial Sepsis Screen: Does the patient meet any 2 criteria? No. Patient's initial sepsis screen is negative. Does the patient have a suspected source of infection? No. Patient's initial sepsis screen is negative. Risk Assessment: Do you want to hurt yourself or someone else? Patient reports no desire to harm self or others. Onset of symptoms was January 21, 2022. 14:20 Acuity: IVETTE 3 kb3 14:21 Chief complaint: Patient states: Pt reports left flank pain and burning x2 days. kb3 Triage Assessment: 14:31 General: Appears in no apparent distress. Behavior is calm, cooperative. Pain: kb3 Complains of pain in left low back Pain radiates to groin Pain currently is 5 out of 10 on a pain scale. Quality of pain is described as burning, Pain began 2-3 days ago. : Reports burning with urination. Historical: - Allergies: 14:31 Bees; kb3 14:31 Codeine; kb3 14:31 hydrocodone bitartrate; kb3 14:31 Iodinated Contrast Media - IV Dye; kb3 14:31 Levofloxacin; kb3 14:31 metronidazole; kb3 14:31 PENICILLINS; kb3 14:31 SHELLFISH; kb3 14:31 sulfamethoxazole; kb3 14:31 TRIMETHOPRIM; kb3 14:31 Wasps; kb3 - PMHx: 14:31 Alzheimers; Anxiety; CAD; CVA; Depression; Diabetes - NIDDM; GERD; High Cholesterol; kb3 Hypertension; kidney cancer; Migraines; - Immunization history:: Adult Immunizations up to date, Client reports receiving the 2nd dose of the Covid vaccine, Last tetanus immunization: unknown. - Social history:: Smoking status: Patient denies any tobacco usage or history of. Screenin:33 Abuse screen: Denies threats or abuse. Denies injuries from another. Nutritional kb3 screening: No deficits noted. Tuberculosis screening: No symptoms or risk factors identified. Fall Risk No fall in past 12 months (0 pts). Secondary diagnosis (15 points) Alzheimer's, IV access (20 points). Ambulatory Aid- None/Bed Rest/Nurse Assist (0 pts). Gait- Normal/Bed Rest/Wheelchair (0 pts) Mental Status- Oriented to own ability (0 pts). Total Gonzalez Fall Scale indicates Low Risk Score (25-44 pts). Fall prevention measures have been instituted. Side Rails Up X 2 Placed close to Nursing Station Frequent Obs/Assesments occuring As available Patient and Family Educated on Fall Prevention Program and strategies. Assessment: 14:33 Reassessment: No changes from previously documented assessment. General: See triage kb3 note. 16:30 General: Spoke with pt's son Marcos Zamorano [phone] to transport pt home. He stated kb3 that it would be quite some time until he could be here. Stated pt's brother Isai Roman [phone] lives locally and might be available. Spoke with Isai Roman and he reports that either him or their brother Giovani will be here shortly to transport pt home. 16:49 General: Pt's brother Giovani in ER to transport pt home. Pt left ER ambulatory without kb3 distress. Vital Signs: 14:20 BP 203 / 137; Pulse 85; Resp 20; Temp 98.4; Pulse Ox 98% ; Weight 58.97 kg; Height 5 kb3 ft. 2 in. (157.48 cm); Pain 5/10; 14:30 BP 171 / 100; Pulse 86; Resp 20; Pulse Ox 100% ; kb3 15:00 BP 164 / 94; Pulse 76; Resp 18; Pulse Ox 96% ; kb3 15:45 BP 172 / 85; Pulse 74; Resp 20; Pulse Ox 96% ; Pain 0/10; kb3 14:20 Body Mass Index 23.78 (58.97 kg, 157.48 cm) kb3 ED Course: 14:20 Patient arrived in ED. kb3 14:20 Na Evans, RN is Primary Nurse. kb3 14:26 Franco Renee MD is Attending Physician. [email or web address] 14:31 Triage completed. kb3 14:31 Arm band placed on right wrist. kb3 14:33 Patient has correct armband on for positive identification. Placed in gown. Bed in low kb3 position. Call light in reach. Side rails up X2. Client placed on continuous cardiac and pulse oximetry monitoring. NIBP monitoring applied. Warm blanket given. 14:33 No provider procedures requiring assistance completed. Maintain EMS IV. Dressing kb3 intact. Good blood return noted. Site clean \T\ dry. Gauge \T\ site: 20G Right forearm. 14:[address] via wheelchair. kb3 14:46 UA MICROSCOPIC Sent. kb3 14:46 CBC with Diff Sent. kb3 14:46 CMP Sent. kb3 14:46 Lipase Sent. kb3 16:38 IV discontinued, intact, bleeding controlled, No redness/swelling at site. kb3 Administered Medications: 15:02 Drug: morphine 2 mg Route: IVP; Infused Over: 4 mins; Site: right forearm; kb3 16:39 Follow up: Response: No adverse reaction; Pain is decreased kb3 15:03 Drug: Zofran (Ondansetron) 4 mg Route: IVP; Site: right forearm; kb3 16:39 Follow up: Response: No adverse reaction; Nausea is decreased kb3 Medication: 14:33 VIS not applicable for this client. kb3 Outcome: 15:42 Discharge ordered by . [email or web address] 16:38 Discharged to home ambulatory, with family. kb3 16:38 Condition: stable 16:38 Discharge instructions given to patient, family, Instructed on discharge instructions, follow up and referral plans. medication usage, Demonstrated understanding of instructions, follow-up care, medications. 16:50 Patient left the ED. kb3 Signatures: Franco Renee MD MD [email or web address] Na Evans, RN RN kb3
[2022-01-23 16:09] LABS: Potassium 3.8 mmol/L (3.5-5.1)
[2022-01-23 18:24] VITALS: TEMP 98.4
[2022-01-23 18:27] VITALS: O2SAT 96
[2022-01-23 18:28] VITALS: BP 172/85
== END 2022-01-23 16:50 | disposition home or self-care (01) ==
LOC: ER 14:15
DX: R10.9 Unspecified abdominal pain (principal); M54.50 Low back pain, unspecified; I10 Essential (primary) hypertension; G30.9 Alzheimer's disease, unspecified; F02.80 Dementia in other diseases classified elsewhere, unspecified severity, without behavioral disturbance, psychotic disturbance, mood disturbance, and anxiety; Z85.528 Personal history of other malignant neoplasm of kidney; Z88.6 Allergy status to analgesic agent; Z88.0 Allergy status to penicillin; Z91.013 Allergy to seafood; Z88.8 Allergy status to other drugs, medicaments and biological substances; Z91.030 Bee allergy status
CPT/HCPCS: 85025; 36415; 83690; 80053; 74176; 96375; 96374; 99284; J2270; J2405; 81003; 81015

== ENCOUNTER 2022-11-23 03:02 | Emergency (ER) | payer OTHER ==
--- OUTSIDE RECORDS SUMMARY | 2022-11-23 03:15 | XMS REPORT | Continuity of Care Document ---
:1945 Author Organization [facility] t Address [address] [place] [address] Care Team Providers Name Role Phone Erica Sanchez Attending Clinician Unavailable Peng Sanchez Attending Clinician Unavailable Haven Steel Attending Clinician Unavailable Lorraine Donnelly Attending Clinician Unavailable SAI ONEAL Attending Clinician Unavailable PONCHO HALE Attending Clinician Unavailable Oscar Ceballos Attending Clinician Susannah Betancourt Attending Clinician JUANA GREEN Admitting Clinician Unavailable Susannah Betancourt Admitting Clinician Payers Payer Name Policy Type Policy Number Effective Date Expiration Date S matthew [employer]ET[employer] MEDICARE [id number] 2022 HMO POS PPO 00:00:00 AETNA 53 [id number] [facility] MEDICARE MB [id number] 2008 [facility] NOVITAS 00:00:00 - [facility] MEDICARE MB [id number] 2008 [facility] NOVITAS 00:00:00 - [facility] MEDICARE MB [id number] 2008 [facility] NOVITAS 00:00:00 - [facility] MEDICARE MB [id number] 2008 [facility] NOVITAS 00:00:00 - [facility] Problems Condition Condition Condition Status Onset Resolution Last Treating Co mments Source Name Details Category Date Date Treatment Clinician Date AMS. CVA AMS. CVA Diagnosis Active 2013-042014-03-03 Memoria Active 0-28 15:36:00 l 02/17/2014 00:00: Celestino donahue [address] CVA CVA Diagnosis Active 2013-042014-07-23 Mem oria Active 0-28 11:07:00 l 02/17/2014 00:00: Celestino donahue [address] Cerebrovas Cerebrova Problem Resolve 2019-11-09 Memoria cular scular d 21:49:41 l accident accident Celestino n (disorder) (disorder) Resolved Problem 11/09/2019 [facility] Diverticul Problem Resolve 2019-11-09 Memoria itis Diverticul d 21:49:41 l (disorder) itis Celestino n (disorder) Resolved Problem 11/09/2019 [facility] High High Problem Resolve 2019-11-09 Blayne aminah density density d 21:49:41 l lipoprotei lipoprotei Ralph donahue n (substance (substance ) ) Resolved Problem 11/09/2019 [facility] Hypertensi Hypertens Problem Resolve 2019-11-09 Memoria ve marlne d 21:49:41 l disorder, disorder, Herm felicitas systemic systemic arterial arterial (disorder) (disorder) Resolved Problem 11/09/2019 [facility] Dementia Dementia Problem Active 2019-11-09 Memoria (disorder) (disorder) 21:49:41 l Active [place] Problem 11/09/2019 [facility] Depressive Depressiv Problem Active 2019-11-09 Memoria disorder e disorder 21:49:41 l (disorder) (disorder) Ralph tapia Active Problem 11/09/2019 [facility] Lumbar Lumbar Problem Active 2019-11-09 Blayne aminah radiculopa radiculopa 21:49:41 l thy thy [place] (disorder) (disorder) Active Problem 11/09/2019 [facility] Memory Memory Problem Active 2019-11-09 Blayne aminah impairment impairment 21:49:41 l (finding) (finding) Herm felicitas Active Problem 11/09/2019 [facility] Tremor Tremor Problem Active 2019-11-09 Blayne aminah (finding) (finding) 21:49:41 l Active [place] Problem 11/09/2019 [facility] Transient Transient Problem Active 2019-11-09 Memoria ischemic ischemic 21:49:41 l attack attack [place] (disorder) (disorder) Active Problem 11/09/2019 [facility] ALTERED ALTERED Diagnosis Active 2014-03-03 Memoria MENTAL MENTAL 15:36:00 l STATUS STATUS [place] Active [facility] [id number] Vitamin D Problem Comm on deficiency [facility] [id number] Depression Problem Co mmon with [facility] anxiety [facility] Peripheral Claudicati Problem C ommon vascular on in Spirit disease peripheral [facility] vascular [facility] Essential Benign Problem Common hypertensi essential Spi rit on HTN [facility] Hyperlipid Hyperlipem Problem C ommon aemia ia [facility] Allergic Allergic Problem Commo n rhinitis rhinitis [facility] 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 - [facility] syndrome) [facility] Gastro-eso Gastro-eso Problem C ommon phageal phageal Spirit reflux reflux [facility] [id number] Diverticul Problem Comm on itis of [facility] large - [facility] intestine [facility] perforatio Medica l n or Center abscess without bleeding [id number] Other Problem Common chronic Spirit pain - [facility] [id number] Forgetfuln Problem Com mon ess [facility] [id number] Insomnia, Problem Com mon unspecifie Spirit d type [facility] [id number] Grief Problem Common reaction [facility] [id number] Type 2 Problem Common diabetes Spirit mellitus - [facility] with [facility] without Center long-term current use of insulin 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 - [facility] accident (CVA) [facility] without Medical late Center effect [id number] Chronic Problem Commo n kidney Spirit disease, - [facility] unspecifie [facility] d [facility] [id number] Bilateral Problem Com mon low back [facility] pain - [facility] without St sciatica[facility] Center chronicity [id number] Elevated Problem Comm on TSH [facility] - [facility] 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 - [facility] [id number] Imbalance Problem Com mon [facility] - [facility] [id number] Alzheimer' Problem Com mon s disease, Spirit unspecifie - [facility] d [facility] [id number] Dementia Problem Comm on in other Spirit diseases - [facility]I classified St elsewhere [facility] without Medical behavioral Center disturbanc e Allergies, Adverse Reactions, Alerts Allergy Allergy Status Severity Reaction(s) Onset Inactive Treating Comm ents Source Name Type Date Date Clinician METRONID Allergy Active [facility] PENICILL Allergy Active [facility] INS [facility] Center SHELLFIS Allergy Active [facility] H [facility] CONTAINI 00:00: Medical NG 00 Center PRODUCTS SULFAMET Allergy Active [facility] HOXAZOLE -[facility] 00[facility] Medical 00 Center TRIMETHO Allergy Active [facility]IM [facility]07 [facility] Medical [facility] Center WASP Allergy Active [facility] VENOM -07 [facility] 00:[facility] Medical 00 Center BEESWAX Allergy Active [facility] Center CODEINE Allergy Active [facility] Center HYDROCOD Allergy Active [facility] ONE [facility] BITARTRA 00:00: Medical TE 00 Center IODINATE Allergy Active [facility] D [facility] CONTRAST 00:00: Medical MEDIA 00 Center LEVOFLOX Allergy Active [facility] ACIN [facility] 00[facility] Medical 00 Center codeine codeine Active Memoria l [place] penicill penicill Active Memori a in in l [place] Codeine Codeine Active Unknown Common [facility] - [facility] Social History Social Habit Start Date Stop Date Quantity Comments Source History of Tobacco [facility] - Use [facility] Sex Assigned At [facility] stephon - [facility] Social History 2014-02-18 2014-02-18 Erik mackenzie 06:59:21 06:59:21 Smoking Status Start Date Stop Date Source Never Smoker [facility] - [facility] Medications Ordered Filled Start Stop Current Ordering Indication Dosage Frequency Signature Comments Components Source Medication Medication Date Date Medication? Clinician (SIG) Name Name Venlafaxine Venlafaxine 2021-04 No 1{capsu QD Venlafaxin HCl ER 150 HCl ER 150 0-07 le_with e HCl ER MG MG 00:00: _food} 150 MG 00 metFORMIN metFORMIN 2021-04 No 1{table QD metFORMIN HCl 500 MG HCl 500 MG 0-07 t_with_ HCl 500 MG 00:00: a_meal} 00 Ciprodex Ciprodex No 4{drops BID Ciprodex 0.3-0.1 % 0.3-0.1 % 1-06 _into_a 0.3-0.1 % 00:00: ffected 00 _ear} Ciprodex Ciprodex No 4{drops BID Ciprodex 0.3-0.1 % 0.3-0.1 % 1-06 _into_a 0.3-0.1 % 00:00: ffected 00 _ear} Ciprodex Ciprodex No 4{drops BID Ciprodex 0.3-0.1 % 0.3-0.1 % 1-06 _into_a 0.3-0.1 % 00:00: ffected 00 _ear} Ciprodex Ciprodex No 4{drops BID Ciprodex 0.3-0.1 % 0.3-0.1 % 1-06 _into_a 0.3-0.1 % 00:00: ffected 00 _ear} Ciprodex Ciprodex No 4{drops BID Ciprodex 0.3-0.1 % 0.3-0.1 % 1-06 _into_a 0.3-0.1 % 00:00: ffected 00 _ear} Ciprodex Ciprodex No 4{drops BID Ciprodex 0.3-0.1 % 0.3-0.1 % 1-06 _into_a 0.3-0.1 % 00:00: ffected 00 _ear} Blood Blood 2019-0 Yes Lorraine as Common Glucose Glucose 6-25 Millender directed Spirit Test Test 00:00: - [facility] Blood Blood 2020-0 Yes Lorraine as Common Glucose Glucose 6-25 Millender directed Spirit Monitor Monitor 00:00: - [facility] System System 00 [facility] Lancets Lancets 2019-0 Yes Lorraine as Common 6-25 Millender directed Spirit 00:00: - [facility] donepezil 5 2019-0 Yes = 1 tab, Me moria mg oral 3-09 PO, l tablet 13:51: Bedtime, # Juju nn 00 90 tab, 3 Refill(s), Pharmacy: [facility] #[id number] donepezil 5 2019-0 Yes = 1 tab, Me moria mg oral 3-09 PO, l tablet 13:51: Bedtime, # Juju nn 00 90 tab, 3 Refill(s), [id number] donepezil 5 2019-0 Yes = 1 tab, Me moria mg oral 3-09 PO, l tablet 13:51: Bedtime, # Juju nn 00 90 tab, 3 Refill(s), [id number] donepezil 5 2019-0 Yes = 1 tab, Me moria mg oral 3-09 PO, l tablet 13:51: Bedtime, # Juju nn 00 90 tab, 3 Refill(s), [id number] donepezil 5 2019-0 Yes = 1 tab, Me moria mg oral 3-09 PO, l tablet 13:51: Bedtime, # Juju nn 00 90 tab, 3 Refill(s), [id number] Aspirin 81 2020-0 Yes 81 mg = 1 Me moria MG Enteric 3-05 tab, PO, l Coated 22:38: Daily, # [place] Tablet 00 90 tab, 3 Refill(s) Aspirin 81 2020-0 Yes 81 mg = 1 Me moria MG Enteric 3-05 tab, PO, l Coated 22:38: Daily, # [place] Tablet 00 90 tab, 3 Refill(s) Aspirin 81 2020-0 Yes 81 mg = 1 Me moria MG Enteric 3-05 tab, PO, l Coated 22:38: Daily, # [place] Tablet 00 90 tab, 3 Refill(s) Aspirin 81 2020-0 Yes 81 mg = 1 Me moria MG Enteric 3-05 tab, PO, l Coated 22:38: Daily, # [place] Tablet 00 90 tab, 3 Refill(s) Aspirin 81 2020-0 Yes 81 mg = 1 Me moria MG Enteric 3-05 tab, PO, l Coated 22:38: Daily, # [place] Tablet 00 90 tab, 3 Refill(s) donepezil 5 2020-0 Yes = 1 tab, Me moria mg oral 3-05 PO, l tablet 22:09: Bedtime, # Juju nn 00 30 tab, 2 Refill(s), Pharmacy: [facility] #[id number] donepezil 5 2020-0 Yes = 1 tab, Me moria mg oral 3-05 PO, l tablet 22:09: Bedtime, # Juju nn 00 30 tab, 2 Refill(s), Pharmacy: [facility] #[id number] donepezil 5 2020-0 Yes = 1 tab, Me moria mg oral 3-05 PO, l tablet 22:09: Bedtime, # Juju nn 00 30 tab, 2 Refill(s), Pharmacy: [facility] #[id number] donepezil 5 2020-0 Yes = 1 tab, Me moria mg oral 3-05 PO, l tablet 22:09: Bedtime, # Juju nn 00 30 tab, 2 Refill(s), Pharmacy: [facility] #[id number] donepezil 5 2020-0 Yes = 1 tab, Me moria mg oral 3-05 PO, l tablet 22:09: Bedtime, # Juju nn 00 30 tab, 2 Refill(s), Pharmacy: [facility] #[id number] Mupirocin Mupirocin 2019-0 2020- No Lorraine 1 C ommon 1-22 05-24 Millender applicatio Spi rit 00:00: 00:00 n to - [facility]I 00 :00 affected [facility] Metformin 2019-0 Yes 500 mg, Memor ia 9-25 PO, 0 l 16:58: Refill(s) Effexor 2019-0 Yes 75 mg, PO, Blayne aminah 9-25 0 l 16:58: Refill(s) atorvastati 2018-0 Yes 50 mg, PO, Memoria n 9-25 Daily, 0 l 16:58: Refill(s) pantoprazol Yes 40 mg = 2 M emoria e 20 mg 9-25 tab, PO, l oral 16:58: Daily, # [place] enteric 00 60 tab, 0 coated Refill(s) tablet eszopiclone Yes 3 mg = 1 Me moria 3 mg oral 9-25 tab, PO, l tablet 16:58: Bedtime, G[place] 00 PRN for insomnia, 0 Refill(s) Metformin Yes 500 mg, Memor ia 9-25 PO, 0 l 16:58: Refill(s) Effexor 2018-0 Yes 75 mg, PO, Blayne aminah 9-25 0 l 16:58: Refill(s) atorvastati 0 Yes 50 mg, PO, Memoria n 9-25 Daily, 0 l 16:58: Refill(s) pantoprazol Yes 40 mg = 2 M emoria e 20 mg 9-25 tab, PO, l oral 16:58: Daily, # [place] enteric 00 60 tab, 0 coated Refill(s) tablet eszopiclone Yes 3 mg = 1 Me moria 3 mg oral 9-25 tab, PO, l tablet 16:58: Bedtime, [place] 00 PRN for insomnia, 0 Refill(s) Metformin 2019-0 Yes 500 mg, Memor ia 9-25 PO, 0 l 16:58: Refill(s) Effexor 2019-0 Yes 75 mg, PO, Blayne aminah 9-25 0 l 16:58: Refill(s) atorvastati 0 Yes 50 mg, PO, Memoria n 9-25 Daily, 0 l 16:58: Refill(s) pantoprazol 0 Yes 40 mg = 2 M emoria e 20 mg 9-25 tab, PO, l oral 16:58: Daily, # [place] enteric 00 60 tab, 0 coated Refill(s) tablet eszopiclone 2019-0 Yes 3 mg = 1 Me moria 3 mg oral 9-25 tab, PO, l tablet 16:58: Bedtime, [place] 00 PRN for insomnia, 0 Refill(s) Metformin 2019-0 Yes 500 mg, Memor ia 9-25 PO, 0 l 16:58: Refill(s) Effexor 2019-0 Yes 75 mg, PO, Blayne aminah 9-25 0 l 16:58: Refill(s) atorvastati 2018-0 Yes 50 mg, PO, Memoria n 9-25 Daily, 0 l 16:58: Refill(s) pantoprazol 2018-0 Yes 40 mg = 2 M emoria e 20 mg 9-25 tab, PO, l oral 16:58: Daily, # [place] enteric 00 60 tab, 0 coated Refill(s) tablet eszopiclone 0 Yes 3 mg = 1 Me moria 3 mg oral 9-25 tab, PO, l tablet 16:58: Bedtime, [place] 00 PRN for insomnia, 0 Refill(s) Metformin 2019-0 Yes 500 mg, Memor ia 9-25 PO, 0 l 16:58: Refill(s) Effexor 2019-0 Yes 75 mg, PO, Blayne aminah 9-25 0 l 16:58: Refill(s) atorvastati 2018-0 Yes 50 mg, PO, Memoria n 9-25 Daily, 0 l 16:58: Refill(s) pantoprazol 2019-0 Yes 40 mg = 2 M emoria e 20 mg 9-25 tab, PO, l oral 16:58: Daily, # [place] enteric 00 60 tab, 0 coated Refill(s) tablet eszopiclone 2019-0 Yes 3 mg = 1 Me moria 3 mg oral 9-25 tab, PO, l tablet 16:58: Bedtime, [place] 00 PRN for insomnia, 0 Refill(s) Donepezil 2019-0 Yes 5 mg = 1 Blayne aminah hydrochlori 7-09 tab, PO, l de 5 MG 17:24: Bedtime, # Herm felicitas Oral Tablet 00 30 tab, 3 [Aricept] Refill(s), Pharmacy: [facility] Donepezil 2019-0 Yes 5 mg = 1 Blayne aminah hydrochlori 7-09 tab, PO, l de 5 MG 17:24: Bedtime, # Herm felicitas Oral Tablet 00 30 tab, 3 [Aricept] Refill(s), Pharmacy: [facility] Donepezil 2019-0 Yes 5 mg = 1 Blayne aminah hydrochlori 7-09 tab, PO, l de 5 MG 17:24: Bedtime, # Herm felicitas Oral Tablet 00 30 tab, 3 [Aricept] Refill(s), Pharmacy: [facility] [place] [id number] Donepezil 2019-0 Yes 5 mg = 1 Blayne aminah hydrochlori 7-09 tab, PO, l de 5 MG 17:24: Bedtime, # Herm felicitas Oral Tablet 00 30 tab, 3 [Aricept] Refill(s), Pharmacy: [facility] [place] [id number] Donepezil 2019-0 Yes 5 mg = 1 Blayne aminah hydrochlori 7-09 tab, PO, l de 5 MG 17:24: Bedtime, # Herm felicitas Oral Tablet 00 30 tab, 3 [Aricept] Refill(s), Pharmacy: [facility] [place] [id number] Amlodipine 2019-0 Yes 10 mg = 1 Me moria 10 MG Oral 6-07 tab, PO, l Tablet 20:42: Daily, # [place] [Norvasc] 00 30 tab, 1 Refill(s) gabapentin 2019-0 Yes 100 mg = 1 M emoria 100 MG Oral 6-07 cap, PO, l Capsule 20:42: BID, 0 [place] 00 Refill(s) Amlodipine 2019-0 Yes 10 mg = 1 Me moria 10 MG Oral 6-07 tab, PO, l Tablet 20:42: Daily, # [place] [Norvasc] 00 30 tab, 1 Refill(s) gabapentin 2019-0 Yes 100 mg = 1 M emoria 100 MG Oral 6-07 cap, PO, l Capsule 20:42: BID, 0 G[place] 00 Refill(s) Amlodipine 2019-0 Yes 10 mg = 1 Me moria 10 MG Oral 6-07 tab, PO, l Tablet 20:42: Daily, # [place] [Norvasc] 00 30 tab, 1 Refill(s) gabapentin 2019-0 Yes 100 mg = 1 M emoria 100 MG Oral 6-07 cap, PO, l Capsule 20:42: BID, 0 [place] 00 Refill(s) Amlodipine 2019-0 Yes 10 mg = 1 Me moria 10 MG Oral 6-07 tab, PO, l Tablet 20:42: Daily, # [place] [Norvasc] 00 30 tab, 1 Refill(s) gabapentin 2019-0 Yes 100 mg = 1 M emoria 100 MG Oral 6-07 cap, PO, l Capsule 20:42: BID, 0 [place] 00 Refill(s) Amlodipine 2019-0 Yes 10 mg = 1 Me moria 10 MG Oral 6-07 tab, PO, l Tablet 20:42: Daily, # Gons[place] [Norvasc] 00 30 tab, 1 Refill(s) gabapentin 2019-0 Yes 100 mg = 1 M emoria 100 MG Oral 6-07 cap, PO, l Capsule 20:42: BID, 0 [place] 00 Refill(s) Effexor 2019-0 Yes 75 mg, PO, Blayne aminah 6-07 Daily, 0 l 20:11: Refill(s) Tramadol 2019-0 Yes 50 mg, PO, Mem oria 6-07 Q4-6H, PRN l 20:11: Pain, # 20 [place] 00 tab, 0 Refill(s) Lorazepam 2019-0 Yes 0 Memoria 6-07 Refill(s) l 20:11: Effexor 2019-0 Yes 75 mg, PO, Blayne aminah 6-07 Daily, 0 l 20:11: Refill(s) Tramadol 2019-0 Yes 50 mg, PO, Mem oria 6-07 Q4-6H, PRN l 20:11: Pain, # 20 [place] 00 tab, 0 Refill(s) Lorazepam 2019-0 Yes 0 Memoria 6-07 Refill(s) l 20:11: Effexor 2019-0 Yes 75 mg, PO, Blayne aminah 6-07 Daily, 0 l 20:11: Refill(s) Tramadol 2019-0 Yes 50 mg, PO, Mem oria 6-07 Q4-6H, PRN l 20:11: Pain, # 20 [place] 00 tab, 0 Refill(s) Lorazepam 2019-0 Yes 0 Memoria 6-07 Refill(s) l 20:11: [place] 00 Effexor 2019-0 Yes 75 mg, PO, Blayne aminah 6-07 Daily, 0 l 20:11: Refill(s) Tramadol 2019-0 Yes 50 mg, PO, Mem oria 6-07 Q4-6H, PRN l 20:11: Pain, # 20 Gons[place] 00 tab, 0 Refill(s) Lorazepam 2019-0 Yes 0 Memoria 6-07 Refill(s) l 20:11: [place] 00 Effexor 2019-0 Yes 75 mg, PO, Blayne aminah 6-07 Daily, 0 l 20:11: Refill(s) Tramadol 2019-0 Yes 50 mg, PO, Mem oria 6-07 Q4-6H, PRN l 20:11: Pain, # 20 [place] 00 tab, 0 Refill(s) Lorazepam 2019-0 Yes 0 Memoria 6-07 Refill(s) l 20:11: Omeprazole 2013-04 No 40 mg, Memor ia 0-30 Route: PO, l 14:00: Drug form: [place] 00 DRC, Daily, Dosing Weight 81.818, kg, Start date: 02/19/14 9:00:00, Duration: 30 day, Stop date: 03/20/14 9:00:00 Losartan 2013-04 No Notes: Memoria 0-30 (Same as: l 14:00: Kingsleyzaar) tia 2013-04 No Notes: Memoria 0-30 (Same as: l 14:00: tia) Omeprazole 2013-04 No 40 mg, Memor ia 0-30 Route: PO, l 14:00: Drug form: [place] 00 DRC, Daily, Dosing Weight 81.818, kg, Start date: 02/19/14 9:00:00, Duration: 30 day, Stop date: 03/20/14 9:00:00 Losartan 2013-04 No Notes: Memoria 0-30 (Same as: l 14:00: Cozaar) Zetia 2013-04 No Notes: Memoria 0-30 (Same as: l 14:00: Zetia) Omeprazole 2013-04 No 40 mg, Memor ia 0-30 Route: PO, l 14:00: Drug form: [place] 00 DRC, Daily, Dosing Weight 81.818, kg, Start date: 02/19/14 9:00:00, Duration: 30 day, Stop date: 03/20/14 9:00:00 Losartan 2013-04 No Notes: Memoria 0-30 (Same as: l 14:00: Cozaar) [place] 00 Zetia 2013-04 No Notes: Memoria 0-30 (Same as: l 14:00: Zetia) Omeprazole 2013-04 No 40 mg, Memor ia 0-30 Route: PO, l 14:00: Drug form: [place] 00 DRC, Daily, Dosing Weight 81.818, kg, Start date: 02/19/14 9:00:00, Duration: 30 day, Stop date: 03/20/14 9:00:00 Losartan 2013-04 No Notes: Memoria 0-30 (Same as: l 14:00: Cozaar) Zetia 2013-04 No Notes: Memoria 0-30 (Same as: l 14:00: Zetia) Omeprazole 2013-04 No 40 mg, Memor ia 0-30 Route: PO, l 14:00: Drug form: G[place] 00 DRC, Daily, Dosing Weight 81.818, kg, Start date: 02/19/14 9:00:00, Duration: 30 day, Stop date: 03/20/14 9:00:00 Losartan 2013-04 No Notes: Memoria 0-30 (Same as: l 14:00: Cozaar) [place] 00 Zetia 2013-04 No Notes: Memoria 0-30 (Same as: l 14:00: Zetia) Protonix 2013-04 No Notes: Memoria 0-30 Tablet l 12:30: should not [place] 00 be chewed or crushed. (Same as: Protonix) Protonix 2013-04 No Notes: Memoria 0-30 Tablet l 12:30: should not [place] 00 be chewed or crushed. (Same as: Protonix) Protonix 2013-04 No Notes: Memoria 0-30 Tablet l 12:30: should not G[place] 00 be chewed or crushed. (Same as: Protonix) Protonix 2013-04 No Notes: Memoria 0-30 Tablet l 12:30: should not [place] 00 be chewed or crushed. (Same as: Protonix) Protonix 2013-04 No Notes: Memoria 0-30 Tablet l 12:30: should not [place] 00 be chewed or crushed. (Same as: Protonix) gabapentin 2013-04 No Notes: Memor ia 300 MG Oral 0-30 (Same as: l Capsule 05:00: Neurontin) Herm felicitas [Neurontin] 00 gabapentin 2013-04 No Notes: Memor ia 300 MG Oral 0-30 (Same as: l Capsule 05:00: Neurontin) Herm felicitas [Neurontin] gabapentin 2013-04 No Notes: Memor ia 300 MG Oral 0-30 (Same as: l Capsule 05:00: Neurontin) Herm felicitas [Neurontin] 00 gabapentin 2013-04 No Notes: Memor ia 300 MG Oral 0-30 (Same as: l Capsule 05:00: Neurontin) Herm felicitas [Neurontin] 00 gabapentin 2013-04 No Notes: Memor ia 300 MG Oral 0-30 (Same as: l Capsule 05:00: Neurontin) Herm felicitas [Neurontin] 00 Simvastatin 2013-04 No Notes: Blayne aminah 0-30 (Same as: l 02:00: Zocor) G[place] Simvastatin 2013-04 No Notes: Blayne aminah 0-30 (Same as: l 02:00: Zocor) [place] Simvastatin 2013-04 No Notes: Blayne aminah 0-30 (Same as: l 02:00: Zocor) [place] Simvastatin 2013-04 No Notes: Blayne aminah 0-30 (Same as: l 02:00: Zocor) G[place] Simvastatin 2013-04 No Notes: Blayne aminah 0-30 (Same as: l 02:00: Zocor) Gons[place] Restoril 2013-04 No Notes: Memoria 0-29 (Same As: l 23:21: Restoril) Gonsalo Restoril 2013-04 No Notes: Memoria 0-29 (Same As: l 23:21: Restoril) Gonsalo Restoril 2013-04 No Notes: Memoria 0-29 (Same As: l 23:21: Restoril) Restoril 2013-04 No Notes: Memoria 0-29 (Same As: l 23:21: Restoril) Restoril 2013-04 No Notes: Memoria 0-29 (Same As: l 23:21: Restoril) Bentyl 2013-04 No Notes: Memoria 0-29 (Same as: l 22:55: Bentyl) Bentyl 2013-04 No Notes: Memoria 0-29 (Same as: l 22:55: Bentyl) Bentyl 2013-04 No Notes: Memoria 0-29 (Same as: l 22:55: Bentyl) Bentyl 2013-04 No Notes: Memoria 0-29 (Same as: l 22:55: Bentyl) Bentyl 2013-04 No Notes: Memoria 0-29 (Same as: l 22:55: Bentyl) Metoclopram 2013-04 No Notes: Blayne aminah jimenez 10 MG 0-29 (Same as: l Oral Tablet 22:54: Reglan) Her cm [Reglan] 00 Take 30 min before meals Metoclopram 2013-04 No Notes: Blayne aminah jimenez 10 MG 0-29 (Same as: l Oral Tablet 22:54: Reglan) Her cm [Reglan] 00 Take 30 min before meals Metoclopram 2013-04 No Notes: Blyane aminah jimenez 10 MG 0-29 (Same as: l Oral Tablet 22:54: Reglan) Her cm [Reglan] 00 Take 30 min before meals Metoclopram 2013-04 No Notes: Blayne aminah jimenez 10 MG 0-29 (Same as: l Oral Tablet 22:54: Reglan) Her cm [Reglan] 00 Take 30 min before meals Metoclopram 2013-04 No Notes: Blayne aminah jimenez 10 MG 0-29 (Same as: l [...] date: 02/18/14 17:53:00, Stop date: 03/20/14 17:52:00 Lorazepam 2013-04 No Notes: Memori a 0-29 (Same as: l 22:53: Ativan) 2013-04 No 3 mg, Memoria 0-29 Route: PO, l 22:53: Drug form: [place] 00 TAB, Bedtime, Dosing Weight 81.818, kg, PRN as needed for insomnia, Start date: 02/18/14 17:53:00, Stop date: 03/20/14 17:52:00 Lorazepam 2013-04 No Notes: Memori a 0-29 (Same as: l 22:53: Ativan) 2013-04 No 3 mg, Memoria 0-29 Route: PO, l 22:53: Drug form: G[place] 00 TAB, Bedtime, Dosing Weight 81.818, kg, PRN as needed for insomnia, Start date: 02/18/14 17:53:00, Stop date: 03/20/14 17:52:00 Lorazepam 2013-04 No Notes: Memori a 0-29 (Same as: l 22:53: Ativan) 2013-04 No 3 mg, Memoria 0-29 Route: PO, l 22:53: Drug form: Gons[place] 00 TAB, Bedtime, Dosing Weight 81.818, kg, PRN as needed for insomnia, Start date: 02/18/14 17:53:00, Stop date: 03/20/14 17:52:00 Lorazepam 2013-04 No Notes: Memori a 0-29 (Same as: l 22:53: Ativan) 2013-04 No 3 mg, Memoria 0-29 Route: PO, l 22:53: Drug form: [place] 00 TAB, Bedtime, Dosing Weight 81.818, kg, PRN [...] tab, PO, l tablet 19:47: Daily, # [place] 00 30 tab, 0 Refill(s) omeprazole 2013-04 [...] Juju nn [Neurontin] 00 cap, 0 Refill(s) meclizine 2013-04 Yes 25 mg = 1 Mem oria 25 mg oral 0-29 tab, PO, l tablet 19:47: TID, for [place] 00 dizziness, # 60 tab, 0 Refill(s) [...] Juju nn [Neurontin] 00 cap, 0 Refill(s) meclizine 2013-04 Yes 25 mg = 1 Mem oria 25 mg oral 0-29 tab, PO, l tablet 19:47: TID, for [place] 00 dizziness, # 60 tab, 0 Refill(s) losartan 50 2013-04 Yes 50 mg = 1 M emoria mg oral 0-29 tab, PO, l tablet 19:47: Daily, # [place] 00 30 tab, 0 Refill(s) omeprazole 2013-04 [...] tab, PO, l Tablet 19:47: Daily, # [place] [Zetia] 00 30 tab, 0 Refill(s) gabapentin 2013-04 Yes 300 mg = 1 M emoria 300 MG Oral 0-29 cap, PO, l Capsule 19:47: TID, # 90 Juju nn [Neurontin] 00 cap, 0 Refill(s) meclizine 2013-04 Yes 25 mg = 1 Mem oria 25 mg oral 0-29 tab, PO, l tablet 19:47: TID, for [place] 00 dizziness, # 60 tab, 0 Refill(s) losartan 50 2013-04 Yes 50 mg = 1 M emoria mg oral 0-29 tab, PO, l tablet 19:47: Daily, # [place] 00 30 tab, 0 Refill(s) meclizine 2013-04 Yes 25 mg = 1 Mem oria 25 mg oral 0-29 tab, PO, l tablet 19:47: TID, for [place] 00 dizziness, # 60 tab, 0 Refill(s) omeprazole 2013-04 Yes 40 [...] tab, PO, l Tablet 19:47: Daily, # [place] [Zetia] 00 30 tab, 0 Refill(s) gabapentin 2013-04 Yes 300 mg = 1 M emoria 300 MG Oral 0-29 cap, PO, l Capsule 19:47: TID, # 90 Juju nn [Neurontin] 00 cap, 0 Refill(s) losartan 50 2013-04 Yes 50 [...] tab, PO, l Tablet 19:47: Daily, # [place] [Zetia] 00 30 tab, 0 Refill(s) gabapentin 2013-04 Yes 300 mg = 1 M emoria 300 MG Oral 0-29 cap, PO, l Capsule 19:47: TID, # 90 Juju nn [Neurontin] 00 cap, 0 Refill(s) clopidogrel 2013-04 No Notes: Blayne aminah 0-29 (Same As: l 14:00: Plavix) [place] 00 Aspirin 325 2013-04 No Notes: (Do Memoria MG Enteric 0-29 Not Crush) l Coated 14:00: Do not [place] Tablet 00 crush or chew. clopidogrel 2013-04 No Notes: Blayne aminah 0-29 (Same As: l 14:00: Plavix) [place] 00 Aspirin 325 2013-04 No Notes: (Do Memoria MG Enteric 0-29 Not Crush) l Coated 14:00: Do not [place] Tablet 00 crush or chew. clopidogrel 2013-04 No Notes: Blayne aminah 0-29 (Same As: l 14:00: Plavix) [place] 00 Aspirin 325 2013-04 No Notes: (Do Memoria MG Enteric 0-29 Not Crush) l Coated 14:00: Do not [place] Tablet 00 crush or chew. clopidogrel 2013-04 No Notes: Blayne aminah 0-29 (Same As: l 14:00: Plavix) [place] 00 Aspirin 325 2013-04 No Notes: (Do Memoria MG Enteric 0-29 Not Crush) l Coated 14:00: Do not [place] Tablet 00 crush or chew. clopidogrel 2013-04 No Notes: Blayne aminah 0-29 (Same As: l 14:00: Plavix) [place] 00 Aspirin 325 2013-04 No Notes: (Do Memoria MG Enteric 0-29 Not Crush) l Coated 14:00: Do not [place] Tablet 00 crush or chew. Keppra 2013-04 No Notes: Memoria 0-29 (Same l 09:30: as:Keppra) [place] ppra 2013-04 No Notes: Memoria 0-29 (Same l 09:30: as:Keppra) [place] Keppra 2013-04 No Notes: Memoria 0-29 (Same l 09:30: as:Keppra) [place] Keppra 2013-04 No Notes: Memoria 0-29 (Same l 09:30: as:Keppra) [place] Keppra 2013-04 No Notes: Memoria 0-29 (Same l 09:30: as:Keppra) [place] tramadol 2013-04 No Notes: Not Mem oria hydrochlori 0-29 to exceed l de 50 MG 09:12: 400mg/day. Her cm Oral Tablet 00 (Same As: Ultram) tramadol 2013-04 No Notes: Not Mem oria hydrochlori 0-29 to exceed l de 50 MG 09:12: 400mg/day. Her cm Oral Tablet 00 (Same As: Ultram) tramadol 2013-04 No Notes: Not Mem oria hydrochlori 0-29 to exceed l de 50 MG 09:12: 400mg/day. Her cm Oral Tablet 00 (Same As: Ultram) tramadol 2013-04 No Notes: Not Mem oria hydrochlori 0-29 to exceed l de 50 MG 09:12: 400mg/day. Her cm Oral Tablet 00 (Same As: Ultram) tramadol 2013-04 No Notes: Not Mem oria hydrochlori 0-29 to exceed l de 50 MG 09:12: 400mg/day. Her cm Oral Tablet 00 (Same As: Ultram) Lorazepam 2013-04 No Notes: Memori a 0-29 (Same as: l 06:30: Ativan) [place] Lorazepam 2013-04 No Notes: Memori a 0-29 (Same as: l 06:30: Ativan) [place] Lorazepam 2013-04 No Notes: Memori a 0-29 (Same as: l 06:30: Ativan) [place] Lorazepam 2013-04 No Notes: Memori a 0-29 (Same as: l 06:30: Ativan) [place] Lorazepam 2013-04 No Notes: Memori a 0-29 (Same as: l 06:30: Ativan) [place] 00 Loratadine 2013-04 No Notes: 1 Mem oria 0-29 hr before l 05:28: meals [place] 00 (Same as: Claritin) Loratadine 2013-04 No Notes: 1 Mem oria 0-29 hr before l 05:28: meals [place] (Same as: Claritin) Loratadine 2013-04 No Notes: 1 Mem oria 0-29 hr before l 05:28: meals [place] (Same as: Claritin) Loratadine 2013-04 No Notes: 1 Mem oria 0-29 hr before l 05:28: meals [place] (Same as: Claritin) Loratadine 2013-04 No Notes: 1 Mem oria 0-29 hr before l 05:28: meals [place] (Same as: Claritin) Ondansetron 2013-04 No 4 mg, Memor ia 0-29 Route: l 04:19: IVP, Drug [place] 00 form: INJ, ONCE, Dosing Weight 81.818, kg, Priority: STAT, Start date: 02/17/14 23:19:00, Stop date: 02/17/14 23:19:00 Ondansetron 2014-1 No 4 mg, Memor ia 0-29 Route: l 04:19: IVP, Drug [place] 00 form: INJ, ONCE, Dosing Weight 81.818, kg, Priority: STAT, Start date: 02/17/14 23:19:00, Stop date: 02/17/14 23:19:00 Ondansetron 2014-1 No 4 mg, Memor ia 0-29 Route: l 04:19: IVP, Drug [place] 00 form: INJ, ONCE, Dosing Weight 81.818, kg, Priority: STAT, Start date: 02/17/14 23:19:00, Stop date: 02/17/14 23:19:00 Ondansetron 2014-1 No 4 mg, Memor ia 0-29 Route: l 04:19: IVP, Drug [place] 00 form: INJ, ONCE, Dosing Weight 81.818, kg, Priority: STAT, Start date: 02/17/14 23:19:00, Stop date: 02/17/14 23:19:00 Ondansetron 2014-1 No 4 mg, Memor ia 0-29 Route: l 04:19: IVP, Drug [place] 00 form: INJ, ONCE, Dosing Weight 81.818, kg, Priority: STAT, Start date: 02/17/14 23:19:00, Stop date: 02/17/14 23:19:00 Benadryl 2014-1 No 25 mg, Memoria 0-29 Route: l 03:50: IVP, ONCE, [place] 00 Dosing Weight 81.818, kg, PRN Itching, Start date: 02/17/14 22:50:00 Benadryl 2014-1 No 25 mg, Memoria 0-29 Route: l 03:50: IVP, ONCE, [place] 00 Dosing Weight 81.818, kg, PRN Itching, Start date: 02/17/14 22:50:00 Benadryl 2014-1 No 25 mg, Memoria 0-29 Route: l 03:50: IVP, ONCE, Dosing Weight 81.818, kg, PRN Itching, Start date: 02/17/14 22:50:00 Benadryl 2013-04 No 25 mg, Memoria 0-29 Route: l 03:50: IVP, ONCE, Dosing Weight 81.818, kg, PRN Itching, Start date: 02/17/14 22:50:00 Benadryl 2013-04 No 25 mg, Memoria 0-29 Route: l 03:50: IVP, ONCE, Dosing Weight 81.818, kg, PRN Itching, Start date: 02/17/14 22:50:00 Meclizine 2013-04 No 0 Memoria 0-29 Refill(s) l 03:43: [place] Losartan 2013-04 No 0 Memoria 0-29 Refill(s) l 03:43: [place] 00 Promethazin 2013-04 No 0 Memori a e 0-29 Refill(s) l 03:43: [place] 00 Zetia 2013-04 No 0 Memoria 0-29 Refill(s) l 03:43: [place] 00 Meclizine 2013-04 No 0 Memoria 0-29 Refill(s) l 03:43: [place] Losartan 2013-04 No 0 Memoria 0-29 Refill(s) l 03:43: [place] 00 Promethazin 2013-04 No 0 Memori a e 0-29 Refill(s) l 03:43: [place] 00 Zetia 2013-04 No 0 Memoria 0-29 Refill(s) l 03:43: [place] 00 Meclizine 2013-04 No 0 Memoria 0-29 Refill(s) l 03:43: [place] 00 Losartan 2013-04 No 0 Memoria 0-29 Refill(s) l 03:43: [place] 00 Promethazin 2013-04 No 0 Memori a e 0-29 Refill(s) l 03:43: [place] Zetia 2013-04 No 0 Memoria 0-29 Refill(s) l 03:43: [place] 00 Meclizine 2013-04 No 0 Memoria 0-29 Refill(s) l 03:43: [place] Losartan 2013-04 No 0 Memoria 0-29 Refill(s) l 03:43: [place] Promethazin 2013-04 No 0 Memori a e 0-29 Refill(s) l 03:43: [place] Zetia 2013-04 No 0 Memoria 0-29 Refill(s) l 03:43: [place] Meclizine 2013-04 No 0 Memoria 0-29 Refill(s) l 03:43: [place] Losartan 2013-04 No 0 Memoria 0-29 Refill(s) l 03:43: [place] Promethazin 2013-04 No 0 Memori a e 0-29 Refill(s) l 03:43: [place] Zetia 2013-04 No 0 Memoria 0-29 Refill(s) l 03:43: [place] Rogaine 2013-04 No 0 Memoria 0-29 Refill(s) l 03:42: [place] Lunesta 2013-04 No 0 Memoria 0-29 Refill(s) l 03:42: [place] Rogaine 2013-04 No 0 Memoria 0-29 Refill(s) l 03:42: [place] Lunesta 2013-04 No 0 Memoria 0-29 Refill(s) l 03:42: [place] Rogaine 2013-04 No 0 Memoria 0-29 Refill(s) l 03:42: [place] Lunesta 2013-04 No 0 Memoria 0-29 Refill(s) l 03:42: [place] Rogaine 2013-04 No 0 Memoria 0-29 Refill(s) l 03:42: [place] Lunesta 2013-04 No 0 Memoria 0-29 Refill(s) l 03:42: [place] Rogaine 2013-04 No 0 Memoria 0-29 Refill(s) l 03:42: [place] Lunesta 2013-04 No 0 Memoria 0-29 Refill(s) l 03:42: [place] Lipitor 2013-04 No Notes: Memoria 0-29 Same as l 02:00: Lipitor Saline 2013-04 No Notes: Mem[facility] Flush 0.9% 0-29 (Same as: l 02:00: BD [place] 00 Posiflush) Famotidine 2013-04 No Notes: Memor ia 0-29 (Same as: l 02:00: Pepcid) [place] Lipitor 2013-04 No Notes: Memoria 0-29 Same as l 02:00: Lipitor [place] Saline 2013-04 No Notes: Mem[facility] Flush 0.9% 0-29 (Same as: l 02:00: BD [place] 00 Posiflush) Famotidine 2013-04 No Notes: Memor ia 0-29 (Same as: l 02:00: Pepcid) [place] Lipitor 2013-04 No Notes: Memoria 0-29 Same as l 02:00: Lipitor [place] Saline 2013-04 No Notes: Mem[facility] Flush 0.9% 0-29 (Same as: l 02:00: BD [place] 00 Posiflush) Famotidine 2013-04 No Notes: Memor ia 0-29 (Same as: l 02:00: Pepcid) [place] 00 Lipitor 2013-04 No Notes: Memoria 0-29 Same as l 02:00: Lipitor [place] Saline 2013-04 No Notes: Mem[facility] Flush 0.9% 0-29 (Same as: l 02:00: BD [place] 00 Posiflush) Famotidine 2013-04 No Notes: Memor ia 0-29 (Same as: l 02:00: Pepcid) [place] Lipitor 2013-04 No Notes: Memoria 0-29 Same as l 02:00: Lipitor [place] Saline 2013-04 No Notes: Mem[facility] Flush 0.9% 0-29 (Same as: l 02:00: BD [place] 00 Posiflush) Famotidine 2013-04 No Notes: Memor ia 0-29 (Same as: l 02:00: Pepcid) [place] 00 Tylenol 2013-04 No 650 mg, Memoria 0-28 Route: PO, l 23:43: Drug form: [place] 00 TAB, ONCE, Dosing Weight 81.818, kg, Priority: STAT, Start date: 02/17/14 18:43:00, Stop date: 02/17/14 18:43:00 Tylenol 2013-04 No 650 mg, Memoria 0-28 Route: PO, l 23:43: Drug form: [place] 00 TAB, ONCE, Dosing Weight 81.818, kg, Priority: STAT, Start date: 02/17/14 18:43:00, Stop date: 02/17/14 18:43:00 Tylenol 2013-04 No 650 mg, Memoria 0-28 Route: PO, l 23:43: Drug form: [place] 00 TAB, ONCE, Dosing Weight 81.818, kg, Priority: STAT, Start date: 02/17/14 18:43:00, Stop date: 02/17/14 18:43:00 Tylenol 2013-04 No 650 mg, Memoria 0-28 Route: PO, l 23:43: Drug form: [place] 00 TAB, ONCE, Dosing Weight 81.818, kg, Priority: STAT, Start date: 02/17/14 18:43:00, Stop date: 02/17/14 18:43:00 Tylenol 2013-04 No 650 mg, Memoria 0-28 Route: PO, l 23:43: Drug form: [place] 00 TAB, ONCE, Dosing Weight 81.818, kg, Priority: STAT, Start date: 02/17/14 18:43:00, Stop date: 02/17/14 18:43:00 Dicyclomine 2013-04 Yes 20 mg = 1 M emoria Hydrochlori 0-28 tab, PO, l de 20 MG 22:39: Q6H, as Celestino n Oral Tablet 00 needed for [Bentyl] irritable bowel Dicyclomine 2013-04 Yes 20 mg = 1 M emoria Hydrochlori 0-28 tab, PO, l de 20 MG 22:39: Q6H, as [place] n Oral Tablet 00 needed for [Bentyl] irritable bowel Dicyclomine 2013-04 Yes 20 mg = 1 M emoria Hydrochlori 0-28 tab, PO, l de 20 MG 22:39: Q6H, as [place] n Oral Tablet 00 needed for [Bentyl] irritable bowel Dicyclomine 2013-04 Yes 20 mg = 1 M emoria Hydrochlori 0-28 tab, PO, l de 20 MG 22:39: Q6H, as [place] n Oral Tablet 00 needed for [Bentyl] irritable bowel Dicyclomine 2013-04 Yes 20 mg = 1 M emoria Hydrochlori 0-28 tab, PO, l de 20 MG 22:39: Q6H, as [place] n Oral Tablet 00 needed for [Bentyl] irritable bowel Eszopiclone 2013-04 Yes 3 mg = 1 Me moria 3 MG Oral 0-28 tab, PO, l Tablet 22:38: Bedtime, [place] [Lunesta] 00 for insomnia Eszopiclone 2013-04 Yes 3 mg = 1 Me moria 3 MG Oral 0-28 tab, PO, l Tablet 22:38: Bedtime, [place] [Lunesta] 00 for insomnia Eszopiclone 2013-04 Yes 3 mg = 1 Me moria 3 MG Oral 0-28 tab, PO, l Tablet 22:38: Bedtime, [place] [Lunesta] 00 for insomnia Eszopiclone 2013-04 Yes 3 mg = 1 Me moria 3 MG Oral 0-28 tab, PO, l Tablet 22:38: Bedtime, [place] [Lunesta] 00 for insomnia Eszopiclone 2013-04 Yes 3 mg = 1 Me moria 3 MG Oral 0-28 tab, PO, l Tablet 22:38: Bedtime, [place] [Lunesta] 00 for insomnia clarithromy 2013-04 No 500 mg = 1 Memoria marshall 500 mg 0-28 tab, PO, l oral tablet 22:36: BID, 0 Herm felicitas 00 Refill(s) clarithromy 2013-04 No 500 mg = 1 Memoria marshall 500 mg 0-28 tab, PO, l oral tablet 22:36: BID, 0 Herm felicitas 00 Refill(s) clarithromy 2013-04 No 500 mg = 1 Memoria marshall 500 mg 0-28 tab, PO, l oral tablet 22:36: BID, 0 Herm felicitas 00 Refill(s) clarithromy 2013-04 No 500 mg = 1 Memoria marshall 500 mg 0-28 tab, PO, l oral tablet 22:36: BID, 0 Herm felicitas 00 Refill(s) clarithromy 2013-04 No 500 mg = 1 Memoria marshall 500 mg 0-28 tab, PO, l oral tablet 22:36: BID, 0 Herm felicitas 00 Refill(s) Metoclopram 2013-04 Yes 10 mg = 1 M emoria jimenez 10 MG 0-28 tab, PO, l Oral Tablet 22:35: QID-Before [place] [Reglan] 00 Meals, as needed for gastropare sis, 0 Refill(s) ciprofloxac 2013-04 No 500 mg = 1 Memoria in 500 mg 0-28 tab, PO, l oral tablet 22:35: BID [place] n Metoclopram 2013-04 Yes 10 mg = 1 M emoria jimenez 10 MG 0-28 tab, PO, l Oral Tablet 22:35: QID-Before [place] [Reglan] 00 Meals, as needed for gastropare sis, 0 Refill(s) ciprofloxac 2013-04 No 500 mg = 1 Memoria in 500 mg 0-28 tab, PO, l oral tablet 22:35: BID [place] n Metoclopram 2013-04 Yes 10 mg = 1 M emoria jimenez 10 MG 0-28 tab, PO, l Oral Tablet 22:35: QID-Before [place] [Reglan] 00 Meals, as needed for gastropare sis, 0 Refill(s) ciprofloxac 2013-04 No 500 mg = 1 Memoria in 500 mg 0-28 tab, PO, l oral tablet 22:35: BID [place] n Metoclopram 2013-04 Yes 10 mg = 1 M emoria jimenez 10 MG 0-28 tab, PO, l Oral Tablet 22:35: QID-Before [place] [Reglan] 00 Meals, as needed for gastropare sis, 0 Refill(s) ciprofloxac 2013-04 No 500 mg = 1 Memoria in 500 mg 0-28 tab, PO, l oral tablet 22:35: BID [place] n Metoclopram 2013-04 Yes 10 mg = 1 M emoria jimenez 10 MG 0-28 tab, PO, l Oral Tablet 22:35: QID-Before [place] [Reglan] 00 Meals, as needed for gastropare sis, 0 Refill(s) ciprofloxac 2013-04 No 500 mg = 1 Memoria in 500 mg 0-28 tab, PO, l oral tablet 22:35: BID [place] n simvastatin 2013-04 Yes 40 mg = 1 M emoria 40 mg oral 0-28 tab, PO, l tablet 22:33: Daily, # [place] 00 30 tab, 0 Refill(s) montelukast 2013-04 Yes 10 mg = 1 M emoria 10 MG Oral 0-28 tab, PO, l Tablet 22:33: QAM, as [place] [Singulair] 00 needed for allergies (in the Spring only), # 30 tab, 0 Refill(s) metoprolol 2013-04 Yes 50 mg = 1 Me moria tartrate 50 0-28 tab, PO, l mg oral 22:33: BID, # 180 Herm felicitas tablet 00 tab, 0 Refill(s) simvastatin 2013-04 Yes 40 mg = 1 M emoria 40 mg oral 0-28 tab, PO, l tablet 22:33: Daily, # [place] 00 30 tab, 0 Refill(s) montelukast 2013-04 [...] Herm felicitas tablet 00 tab, 0 Refill(s) simvastatin 2013-04 Yes 40 mg = 1 M emoria 40 mg oral 0-28 tab, PO, l tablet 22:33: Daily, # [place] 00 30 tab, 0 Refill(s) montelukast 2013-04 [...] Herm felicitas tablet 00 tab, 0 Refill(s) simvastatin 2013-04 Yes 40 mg = 1 [...] Herm felicitas tablet 00 tab, 0 Refill(s) simvastatin 2013-04 Yes 40 mg = 1 [...] 0-28 tab, PO, l tablet 22:31: BID, [place] 00 Anxiety LORazepam 1 2013-04 Yes 1 mg = 1 Me moria mg oral 0-28 tab, PO, l tablet 22:31: BID, [place] 00 Anxiety LORazepam 1 2013-04 Yes 1 mg = 1 Me moria mg oral 0-28 tab, PO, l tablet 22:31: BID, [place] 00 Anxiety LORazepam 1 2013-04 Yes 1 mg = 1 Me moria mg oral 0-28 tab, PO, l tablet 22:31: BID, [place] Anxiety LORazepam 1 2013-04 Yes 1 mg = 1 Me moria mg oral 0-28 tab, PO, l tablet 22:31: BID, [place] Anxiety Zofran 2013-04 No 4 mg, Memoria 0-28 Route: l 21:53: IVP, Drug [place] 00 form: INJ, ONCE, Dosing Weight 81.818, kg, Priority: STAT, Start date: 02/17/14 16:53:00, Stop date: 02/17/14 16:53:00 Zofran 2013-04 No 4 mg, Memoria 0-28 Route: l 21:53: IVP, Drug form: INJ, ONCE, Dosing Weight 81.818, kg, Priority: STAT, Start date: 02/17/14 16:53:00, Stop date: 02/17/14 16:53:00 Zofran 2013-04 No 4 mg, Memoria 0-28 Route: l 21:53: IVP, Drug [place] 00 form: INJ, ONCE, Dosing Weight 81.818, kg, Priority: STAT, Start date: 02/17/14 16:53:00, Stop date: 02/17/14 16:53:00 Zofran 2013-04 No 4 mg, Memoria 0-28 Route: l 21:53: IVP, Drug [place] 00 form: INJ, ONCE, Dosing Weight 81.818, kg, Priority: STAT, Start date: 02/17/14 16:53:00, Stop date: 02/17/14 16:53:00 Zofran 2013-04 No 4 mg, Memoria 0-28 Route: l 21:53: IVP, Drug [place] 00 form: INJ, ONCE, Dosing Weight 81.818, kg, Priority: STAT, Start date: 02/17/14 16:53:00, Stop date: 02/17/14 16:53:00 heparin, 2013-04 No Notes: Memoria porcine 0-28 porcine l 21:00: heparin [place] 00 heparin, 2013-04 No Notes: Memoria porcine 0-28 porcine l 21:00: heparin [place] 00 heparin, 2013-04 No Notes: Memoria porcine 0-28 porcine l 21:00: heparin [place] 00 heparin, 2013-04 No Notes: Memoria porcine 0-28 porcine l 21:00: heparin [place] 00 heparin, 2013-04 No Notes: Memoria porcine 0-28 porcine l 21:00: heparin [place] 00 Saline 2013-04 No 10 ml, Memoria Flush 0.9% Route: l 20:43: IVP, Drug [place] 00 Form: INJ, Dosing Weight 81.818, kg, PRN, PRN Line Flush, Start date: 02/17/14 15:43:00, Duration: 30 day, Stop date: 03/19/14 14:42:00 Labetalol 2013-04 No 105mmHg Blayne aminah 0-28 l 20:43: [place] 00 Acetaminoph 2013-04 No Notes: Do M emoria en 0-28 not exceed l 20:43: 4 gm/day. [place] 00 (Same as: Tylenol) Sodium 2013-04 No 1,000 mL, Memori a Chloride 0-28 Rate: 100 l 0.154 20:43: ml/hr, [place] MEQ/ML 00 Infuse Injectable over: 10 Solution hr, Route: IV, Dosing Weight 81.818 kg, Total Volume: 1,000, Start date: 02/17/14 15:43:00, Duration: 30 day, Stop date: 03/19/14 15:42:00 Saline 2013-04 No 10 ml, Mem[facility] Flush 0.9% 0-28 Route: l 20:43: IVP, Drug [place] 00 Form: INJ, Dosing Weight 81.818, kg, PRN, PRN Line Flush, Start date: 02/17/14 15:43:00, Duration: 30 day, Stop date: 03/19/14 14:42:00 Labetalol 2013-04 No 105mmHg Blayne aminah 0-28 l 20:43: [place] 00 Acetaminoph 2013-04 No Notes: Do M emoria en 0-28 not exceed l 20:43: 4 gm/day. [place] 00 (Same as: Tylenol) Sodium 2013-04 No 1,000 mL, Memori a Chloride 0-28 Rate: 100 l 0.154 20:43: ml/hr, [place] MEQ/ML 00 Infuse Injectable over: 10 Solution hr, Route: IV, Dosing Weight 81.818 kg, Total Volume: 1,000, Start date: 02/17/14 15:43:00, Duration: 30 day, Stop date: 03/19/14 15:42:00 Saline 2013-04 No 10 ml, Memoria Flush 0.9% 0-28 Route: l 20:43: IVP, Drug [place] 00 Form: INJ, Dosing Weight 81.818, kg, PRN, PRN Line Flush, Start date: 02/17/14 15:43:00, Duration: 30 day, Stop date: 03/19/14 14:42:00 Labetalol 2013-04 No 105mmHg Blayne aminah 0-28 l 20:43: [place] 00 Acetaminoph 2013-04 No Notes: Do M emoria en 0-28 not exceed l 20:43: 4 gm/day. [place] 00 (Same as: Tylenol) Sodium 2013-04 No 1,000 mL, Memori a Chloride 0-28 Rate: 100 l 0.154 20:43: ml/hr, [place] MEQ/ML 00 Infuse Injectable over: 10 Solution hr, Route: IV, Dosing Weight 81.818 kg, Total Volume: 1,000, Start date: 02/17/14 15:43:00, Duration: 30 day, Stop date: 03/19/14 15:42:00 Saline 2013-04 No 10 ml, Mem[facility] Flush 0.9% 0-28 Route: l 20:43: IVP, Drug [place] Form: INJ, Dosing Weight 81.818, kg, PRN, PRN Line Flush, Start date: 02/17/14 15:43:00, Duration: 30 day, Stop date: 03/19/14 14:42:00 Labetalol 2013-04 No 105mmHg Blayne aminah 0-28 l 20:43: [place] 00 Acetaminoph 2013-04 No Notes: Do M emoria en 0- not exceed l 20:43: 4 gm/day. [place] 00 (Same as: Tylenol) Sodium 2013-04 No 1,000 mL, Memori a Chloride 0-28 Rate: 100 l 0.154 20:43: ml/hr, [place] MEQ/ML 00 Infuse Injectable over: 10 Solution hr, Route: IV, Dosing Weight 81.818 kg, Total Volume: 1,000, Start date: 02/17/14 15:43:00, Duration: 30 day, Stop date: 03/19/14 15:42:00 Saline 2013-04 No 10 ml, Memoria Flush 0.9% 0-28 Route: l 20:43: IVP, Drug [place] 00 Form: INJ, Dosing Weight 81.818, kg, PRN, PRN Line Flush, Start date: 02/17/14 15:43:00, Duration: 30 day, Stop date: 03/19/14 14:42:00 Labetalol 2013-04 No 105mmHg Blayne aminah 0-28 l 20:43: [place] 00 Acetaminoph 2013-04 No Notes: Do M emoria en 0-28 not exceed l 20:43: 4 gm/day. (Same as: Tylenol) Sodium 2013-04 No 1,000 mL, Memori a Chloride 0-28 Rate: 100 l 0.154 20:43: ml/hr, [place] MEQ/ML 00 Infuse Injectable over: 10 Solution hr, Route: IV, Dosing Weight 81.818 kg, Total Volume: 1,000, Start date: 02/17/14 15:43:00, Duration: 30 day, Stop date: 03/19/14 15:42:00 Plavix 2013-04 No Notes: ( Memoria 0-28 Same as: l 20:42: Plavix) aspirin 2013-04 No Notes: Memoria 0-28 Take with l 20:42: food. Plavix 2013-04 No Notes: ( Memoria 0-28 Same as: l 20:42: Plavix) aspirin 2013-04 No Notes: Memoria 0-28 Take with l 20:42: food. Plavix 2013-04 No Notes: ( Memoria 0-28 Same as: l 20:42: Plavix) aspirin 2013-04 No Notes: Memoria 0-28 Take with l 20:42: food. Plavix 2013-04 No Notes: ( Memoria 0-28 Same as: l 20:42: Plavix) aspirin 2013-04 No Notes: Memoria 0-28 Take with l 20:42: food. Plavix 2013-04 No Notes: ( Memoria 0-28 Same as: l 20:42: Plavix) aspirin 2013-04 No Notes: Memoria 0-28 Take with l 20:42: food. Sodium 2013-04 No 1,000 mL, Memori a Chloride 0-28 1,000 l 0.154 20:16: ml/hr, [place] MEQ/ML 00 Infuse Injectable Over: 1 Solution hr, Route: IV, 1,000, Drug form: INJ, ONCE, Priority: STAT, Dosing Weight 81.818 kg, Start date: 02/17/14 15:16:00, Duration: 1 doses or times, Stop date: 02/17/14 15:16:00 Sodium 2013-04 No 1,000 mL, Memori a Chloride 0-28 1,000 l 0.154 20:16: ml/hr, [place] MEQ/ML 00 Infuse Injectable Over: 1 Solution hr, Route: IV, 1,000, Drug form: INJ, ONCE, Priority: STAT, Dosing Weight 81.818 kg, Start date: 02/17/14 15:16:00, Duration: 1 doses or times, Stop date: 02/17/14 15:16:00 Sodium 2013- No 1,000 mL, Memori a Chloride 0-28 1,000 l 0.154 20:16: ml/hr, [place] MEQ/ML 00 Infuse Injectable Over: 1 Solution hr, Route: IV, 1,000, Drug form: INJ, ONCE, Priority: STAT, Dosing Weight 81.818 kg, Start date: 02/17/14 15:16:00, Duration: 1 doses or times, Stop date: 02/17/14 15:16:00 Sodium 2013- No 1,000 mL, Memori a Chloride 0-28 1,000 l 0.154 20:16: ml/hr, [place] MEQ/ML 00 Infuse Injectable Over: 1 Solution hr, Route: IV, 1,000, Drug form: INJ, ONCE, Priority: STAT, Dosing Weight 81.818 kg, Start date: 02/17/14 15:16:00, Duration: 1 doses or times, Stop date: 02/17/14 15:16:00 Sodium 2013- No 1,000 mL, Memori a Chloride 0-28 1,000 l 0.154 20:16: ml/hr, [place] MEQ/ML 00 Infuse Injectable Over: 1 Solution hr, Route: IV, 1,000, Drug form: INJ, ONCE, Priority: STAT, Dosing Weight 81.818 kg, Start date: 02/17/14 15:16:00, Duration: 1 doses or times, Stop date: 02/17/14 15:16:00 iodixanol 2013-04 No Special Memor ia 0-28 Instructio l 18:55: ns: Dose = [place] 00 2.2ml/kg, Max dose = 150ml -- [...] 0-28 Instructio l 18:55: ns: Dose = [place] 00 2.2ml/kg, Max dose = 150ml -- [...] 0-28 Instructio l 18:51: ns: Dose = [place] 00 2.2ml/kg, Max dose = 150ml -- "To be infused by Radiology Staff ONLY" iodixanol 2013-04 No Special Memor ia 0-28 Instructio l 18:51: ns: Dose = [place] 00 2.2ml/kg, Max dose = 150ml -- "To be infused by Radiology Staff ONLY" Sodium 2013-04 No 1,000 mL, Memori a Chloride 0-28 1,000 l 0.154 17:51: ml/hr, [place] MEQ/ML 00 Infuse Injectable Over: 1 Solution hr, Route: IV, 1,000, Drug form: INJ, ONCE, Priority: STAT, Dosing Weight 81.818 kg, Start date: 02/17/14 12:51:00, Duration: 1 doses or times, Stop date: 02/17/14 12:51:00 Sodium 2013- No 1,000 mL, Memori a Chloride 0-28 1,000 l 0.154 17:51: ml/hr, [place] MEQ/ML 00 Infuse Injectable Over: 1 Solution hr, Route: IV, 1,000, Drug form: INJ, ONCE, Priority: STAT, Dosing Weight 81.818 kg, Start date: 02/17/14 12:51:00, Duration: 1 doses or times, Stop date: 02/17/14 12:51:00 Sodium 2013-04 No 1,000 mL, Mem[facility] a Chloride 0-28 1,000 l 0.154 17:51: ml/hr, [place] MEQ/ML 00 Infuse Injectable Over: 1 Solution hr, Route: IV, 1,000, Drug form: INJ, ONCE, Priority: STAT, Dosing Weight 81.818 kg, Start date: 02/17/14 12:51:00, Duration: 1 doses or times, Stop date: 02/17/14 12:51:00 Sodium 2013-04 No 1,000 mL, Memori a Chloride 0-28 1,000 l 0.154 17:51: ml/hr, [place] MEQ/ML 00 Infuse Injectable Over: 1 Solution hr, Route: IV, 1,000, Drug form: INJ, ONCE, Priority: STAT, Dosing Weight 81.818 kg, Start date: 02/17/14 12:51:00, Duration: 1 doses or times, Stop date: 02/17/14 12:51:00 Sodium 2013-04 No 1,000 mL, Memori a Chloride 0-28 1,000 l 0.154 17:51: ml/hr, [place] MEQ/ML 00 Infuse Injectable Over: 1 Solution hr, Route: IV, 1,000, Drug form: INJ, ONCE, Priority: STAT, Dosing Weight 81.818 kg, Start date: 02/17/14 12:51:00, Duration: 1 doses or times, Stop date: 02/17/14 12:51:00 Saline 2013-04 No Notes: Memoria Flush 0.9% 0-28 (Same as: l 16:53: BD [place] 00 Posiflush) Saline 2013-04 No Notes: [facility]oria Flush 0.9% 0-28 (Same as: l 16:53: BD [place] 00 Posiflush) Saline 2013-04 No Notes: Memoria Flush 0.9% 0-28 (Same as: l 16:53: BD [place] 00 Posiflush) Saline 2013-04 No Notes: Memoria Flush 0.9% 0-28 (Same as: l 16:53: BD [place] Posiflush) Saline 2013-04 No Notes: Memoria Flush 0.9% 0-28 (Same as: l 16:53: BD [place] Posiflush) Ativan Ativan Yes [place] 1 tablet Common Mill[facility] Lunesta Lunesta Yes [place] 1 tablet Comm on Millender immediatel Spir y before [facility] Donepezil Donepezil Yes Lorraine 1 tablet Common HCl HCl Millender at bedtime [facility] EpiPen EpiPen Yes Lorraine as Common 2-Ney 2-Ney Millender directed Spir [facility] Bactrim DS Bactrim DS Yes Lorraine 1 tablet Common Millender [facility] Effexor XR Effexor XR Yes Lorraine 3 capsules Common Millender [facility] Vitamin D Vitamin D Yes Lorraine 1 tablet Common Millender [facility] Atorvastati Atorvastati Yes Lorraine 1 tablet Common n Calcium n Calcium Millender in evening [facility] Metformin Metformin Yes Lorraine 1 tablet [facility] Amlodipine Amlodipine Yes Lorraine 1 tablet Common Besylate Besylate Millender Sp stephon [facility] Cardura Cardura Yes Lorraine 1 tablet Comm on Millender in evening Spir [facility] Simvastatin Simvastatin Yes Lorraine 1 tablet Common Millender in the [facility] evening [facility] Bentyl Bentyl Yes Lorraine 1 tablet Common Millender [facility] Protonix Protonix Yes Lorraine 1 tablet Co mmon Millender [facility] Protonix Protonix Yes Lorraine 1 tablet Co mmon Millender [facility] Lotrisone Lotrisone Yes Lorraine 1 Comm on Millender applicatio Spir it n to - [facility] affected [facility] Bactroban Bactroban Yes Lorraine 1 Comm on Millender applicatio Spir it n to - [facility] affected [facility] Gabapentin Gabapentin Yes Lorraine 1 capsule Common Mill[facility] Metoprolol Metoprolol Yes Lorraine 1 tablet Common Tartrate Tartrate Millender Sp stephon [facility] Metoprolol Metoprolol Yes Lorraine 1 tablet Common Tartrate Tartrate Millender Sp stephon [facility] Ativan 1 MG Ativan 1 MG No 1{table TID Ativan 1 t} MG Gabapentin Gabapentin No 1{capsu Gabapentin 100 mg 100 mg le} 100 mg Blood Blood No Blood Glucose Glucose Glucose Monitor Monitor Monitor System System System w/Device w/Device w/Device Blood Blood No Blood Glucose Glucose Glucose Test - Test - Test - Belsomra 5 Belsomra 5 No 1{table QD Belsomra 5 MG MG t_at_be MG dtime_a s_neede d} Simvastatin Simvastatin No 1{table QD Simvastati 40 MG 40 MG t_in_th n 40 MG e_eveni ng} Multivitami Multivitami No Multivitam n n in Lancets - Lancets - No Lancets - amLODIPine amLODIPine No 1{table QD amLODIPine Besylate 10 Besylate 10 t} Besylate MG MG 10 MG Metoprolol Metoprolol No 1{table BID Metoprolol Tartrate 50 Tartrate 50 t} Tartrate MG MG 50 MG Metformin Metformin No 1{table BID Metformin HCl 500 HCl 500 t} HCl 500 Metoprolol Metoprolol No 1{table BID Metoprolol Tartrate 50 Tartrate 50 t} Tartrate MG MG 50 MG Cardura 2 Cardura 2 No QD Cardura 2 MG MG MG Protonix 20 Protonix 20 No 1{table QD Protonix MG MG t} 20 MG Pantoprazol Pantoprazol No 1{table QD Pantoprazo e Sodium 20 e Sodium 20 t} le Sodium MG MG 20 MG Donepezil Donepezil No 1{table BID Donepezil HCl 5 MG HCl 5 MG t} HCl 5 MG Protonix 40 Protonix 40 No 1{table QD Protonix MG MG t} 40 MG Atorvastati Atorvastati No QD Atorvastat n Calcium n Calcium in Calcium 10 MG 10 MG 10 MG Effexor XR Effexor XR No 3{capsu QD Effexor XR 75 MG 75 MG les} 75 MG EpiPen EpiPen No EpiPen 2-Ney 0.3 2-Ney 0.3 2-Ney 0.3 MG/0.3ML MG/0.3ML MG/0.3ML Bactrim DS Bactrim DS No 1{table BID Bactrim DS 800-160 MG 800-160 MG t} 800-160 MG Bactroban 2 Bactroban 2 No 1{appli TID Bactroban % % cation_ 2 % to_affe cted_ar ea} Ativan 1 MG Ativan 1 MG No 1{table TID Ativan 1 t} MG Gabapentin Gabapentin No 1{capsu Gabapentin 100 mg 100 mg le} 100 mg Blood Blood No Blood Glucose Glucose Glucose Monitor Monitor Monitor System System System w/Device w/Device w/Device Blood Blood No Blood Glucose Glucose Glucose Test - Test - Test - Belsomra 5 Belsomra 5 No 1{table QD Belsomra 5 MG MG t_at_be MG dtime_a s_neede d} Simvastatin Simvastatin No 1{table QD Simvastati 40 MG 40 MG t_in_th n 40 MG e_eveni ng} Multivitami Multivitami No Multivitam n n in Lancets - Lancets - No Lancets - Protonix 20 Protonix 20 No 1{table QD Protonix MG MG t} 20 MG amLODIPine amLODIPine No 1{table QD amLODIPine Besylate 10 Besylate 10 t} Besylate MG MG 10 MG Effexor XR Effexor XR No 3{capsu QD Effexor XR 75 MG 75 MG les} 75 MG Pantoprazol Pantoprazol No 1{table QD Pantoprazo e Sodium 20 e Sodium 20 t} le Sodium MG MG 20 MG Metformin Metformin No 1{table BID Metformin HCl 500 HCl 500 t} HCl 500 Donepezil Donepezil No 1{table BID Donepezil HCl 5 MG HCl 5 MG t} HCl 5 MG Bactroban 2 Bactroban 2 No 1{appli TID Bactroban % % cation_ 2 % to_affe cted_ar ea} Gabapentin Gabapentin No 1{capsu Gabapentin 100 mg 100 mg le} 100 mg Protonix 40 Protonix 40 No 1{table QD Protonix MG MG t} 40 MG EpiPen EpiPen No EpiPen 2-Ney 0.3 2-Ney 0.3 2-Ney 0.3 MG/0.3ML MG/0.3ML MG/0.3ML Atorvastati Atorvastati No QD Atorvastat n Calcium n Calcium in Calcium 10 MG 10 MG 10 MG Blood Blood No Blood Glucose Glucose Glucose Monitor Monitor Monitor System System System w/Device w/Device w/Device Multivitami Multivitami No Multivitam n n in Lancets - Lancets - No Lancets - Ativan 1 MG Ativan 1 MG No 1{table TID Ativan 1 t} MG Bactrim DS Bactrim DS No 1{table BID Bactrim DS 800-160 MG 800-160 MG t} 800-160 MG Metoprolol Metoprolol No 1{table BID Metoprolol Tartrate 50 Tartrate 50 t} Tartrate MG MG 50 MG Blood Blood No Blood Glucose Glucose Glucose Test - Test - Test - Belsomra 5 Belsomra 5 No 1{table QD Belsomra 5 MG MG t_at_be MG dtime_a s_neede d} Simvastatin Simvastatin No 1{table QD Simvastati 40 MG 40 MG t_in_th n 40 MG e_eveni ng} Cardura 2 Cardura 2 No QD Cardura 2 MG MG MG Metoprolol Metoprolol No 1{table BID Metoprolol Tartrate 50 Tartrate 50 t} Tartrate MG MG 50 MG amLODIPine amLODIPine No 1{table QD amLODIPine Besylate 10 Besylate 10 t} Besylate MG MG 10 MG Metoprolol Metoprolol No 1{table BID Metoprolol Tartrate 50 Tartrate 50 t} Tartrate MG MG 50 MG Belsomra 5 Belsomra 5 No 1{table QD Belsomra 5 MG MG t_at_be MG dtime_a s_neede d} Donepezil Donepezil No 1{table BID Donepezil HCl 5 MG HCl 5 MG t} HCl 5 MG Venlafaxine Venlafaxine No Venlafaxin HCl ER 75 HCl ER 75 e HCl ER MG MG 75 MG Protonix 20 Protonix 20 No 1{table QD Protonix MG MG t} 20 MG Multivitami Multivitami No Multivitam n n in Pantoprazol Pantoprazol No 1{table QD Pantoprazo e Sodium 20 e Sodium 20 t} le Sodium MG MG 20 MG EpiPen EpiPen No EpiPen 2-Ney 0.3 2-Ney 0.3 2-Ney 0.3 MG/0.3ML MG/0.3ML MG/0.3ML Bactroban 2 Bactroban 2 No 1{appli TID Bactroban % % cation_ 2 % to_affe cted_ar ea} Protonix 40 Protonix 40 No 1{table QD Protonix MG MG t} 40 MG Blood Blood No Blood Glucose Glucose Glucose Monitor Monitor Monitor System System System w/Device w/Device w/Device Metformin Metformin No 1{table BID Metformin HCl 500 HCl 500 t} HCl 500 Cardura 2 Cardura 2 No QD Cardura 2 MG MG MG Metoprolol Metoprolol No 1{table BID Metoprolol Tartrate 50 Tartrate 50 t} Tartrate MG MG 50 MG Blood Blood No Blood Glucose Glucose Glucose Test - Test - Test - Atorvastati Atorvastati No Atorvastat n Calcium n Calcium in Calcium 10 MG 10 MG 10 MG Gabapentin Gabapentin No 1{capsu Gabapentin 100 mg 100 mg le} 100 mg Ativan 1 MG Ativan 1 MG No 1{table TID Ativan 1 t} MG Simvastatin Simvastatin No 1{table QD Simvastati 40 MG 40 MG t_in_th n 40 MG e_eveni ng} Bactrim DS Bactrim DS No 1{table BID Bactrim DS 800-160 MG 800-160 MG t} 800-160 MG Lancets - Lancets - No Lancets - Metoprolol Metoprolol No 1{table BID Metoprolol Tartrate 50 Tartrate 50 t} Tartrate MG MG 50 MG Lancets - Lancets - No Lancets - Belsomra 5 Belsomra 5 No 1{table QD Belsomra 5 MG MG t_at_be MG dtime_a s_neede d} Donepezil Donepezil No 1{table BID Donepezil HCl 5 MG HCl 5 MG t} HCl 5 MG Metoprolol Metoprolol No 1{table BID Metoprolol Tartrate 50 Tartrate 50 t} Tartrate MG MG 50 MG Protonix 20 Protonix 20 No 1{table QD Protonix MG MG t} 20 MG Multivitami Multivitami No Multivitam n n in Pantoprazol Pantoprazol No 1{table QD Pantoprazo e Sodium 20 e Sodium 20 t} le Sodium MG MG 20 MG EpiPen EpiPen No EpiPen 2-Ney 0.3 2-Ney 0.3 2-Ney 0.3 MG/0.3ML MG/0.3ML MG/0.3ML Bactroban 2 Bactroban 2 No 1{appli TID Bactroban % % cation_ 2 % to_affe cted_ar ea} Protonix 40 Protonix 40 No 1{table QD Protonix MG MG t} 40 MG Venlafaxine Venlafaxine No Venlafaxin HCl ER 75 HCl ER 75 e HCl ER MG MG 75 MG Atorvastati Atorvastati No 1{table QD Atorvastat n Calcium n Calcium t} in Calcium 10 MG 10 MG 10 MG Cardura 2 Cardura 2 No QD Cardura 2 MG MG MG Blood Blood No Blood Glucose Glucose Glucose Monitor Monitor Monitor System System System w/Device w/Device w/Device Blood Blood No Blood Glucose Glucose Glucose Test - Test - Test - amLODIPine amLODIPine No 1{table QD amLODIPine Besylate 10 Besylate 10 t} Besylate MG MG 10 MG Metformin Metformin No 1{table BID Metformin HCl 500 HCl 500 t} HCl 500 Gabapentin Gabapentin No 1{capsu Gabapentin 100 mg 100 mg le} 100 mg Ativan 1 MG Ativan 1 MG No 1{table TID Ativan 1 t} MG Simvastatin Simvastatin No 1{table QD Simvastati 40 MG 40 MG t_in_th n 40 MG e_eveni ng} Bactrim DS Bactrim DS No 1{table BID Bactrim DS 800-160 MG 800-160 MG t} 800-160 MG Metformin Metformin No 1{table BID Metformin HCl 500 HCl 500 t} HCl 500 Atorvastati Atorvastati No 1{table QD Atorvastat n Calcium n Calcium t} in Calcium 10 MG 10 MG 10 MG Metoprolol Metoprolol No 1{table BID Metoprolol Tartrate 50 Tartrate 50 t} Tartrate MG MG 50 MG amLODIPine amLODIPine No 1{table QD amLODIPine Besylate 10 Besylate 10 t} Besylate MG MG 10 MG Venlafaxine Venlafaxine No Venlafaxin HCl ER 75 HCl ER 75 e HCl ER MG MG 75 MG amLODIPine amLODIPine No 1{table QD amLODIPine Besylate 10 Besylate 10 t} Besylate MG MG 10 MG Metoprolol Metoprolol No 1{table BID Metoprolol Tartrate 50 Tartrate 50 t} Tartrate MG MG 50 MG Atorvastati Atorvastati No 1{table QD Atorvastat n Calcium n Calcium t} in Calcium 10 MG 10 MG 10 MG amLODIPine amLODIPine No 1{table QD amLODIPine Besylate 10 Besylate 10 t} Besylate MG MG 10 MG Metoprolol Metoprolol No 1{table BID Metoprolol Tartrate 50 Tartrate 50 t} Tartrate MG MG 50 MG Metformin Metformin No 1{table BID Metformin HCl 500 HCl 500 t} HCl 500 Metoprolol Metoprolol No 1{table BID Metoprolol Tartrate 50 Tartrate 50 t} Tartrate MG MG 50 MG Cardura 2 Cardura 2 No QD Cardura 2 MG MG MG Protonix 20 Protonix 20 No 1{table QD Protonix MG MG t} 20 MG Pantoprazol Pantoprazol No 1{table QD Pantoprazo e Sodium 20 e Sodium 20 t} le Sodium MG MG 20 MG Donepezil Donepezil No 1{table BID Donepezil HCl 5 MG HCl 5 MG t} HCl 5 MG Protonix 40 Protonix 40 No 1{table QD Protonix MG MG t} 40 MG Atorvastati Atorvastati No QD Atorvastat n Calcium n Calcium in Calcium 10 MG 10 MG 10 MG Effexor XR Effexor XR No 3{capsu QD Effexor XR 75 MG 75 MG les} 75 MG EpiPen EpiPen No EpiPen 2-Ney 0.3 2-Ney 0.3 2-Ney 0.3 MG/0.3ML MG/0.3ML MG/0.3ML Bactrim DS Bactrim DS No 1{table BID Bactrim DS 800-160 MG 800-160 MG t} 800-160 MG Bactroban 2 Bactroban 2 No 1{appli TID Bactroban % % cation_ 2 % to_affe cted_ar ea} Ativan 1 MG Ativan 1 MG No 1{table TID Ativan 1 t} MG Gabapentin Gabapentin No 1{capsu Gabapentin 100 mg 100 mg le} 100 mg Blood Blood No Blood Glucose Glucose Glucose Monitor Monitor Monitor System System System w/Device w/Device w/Device Blood Blood No Blood Glucose Glucose Glucose Test - Test - Test - Belsomra 5 Belsomra 5 No 1{table QD Belsomra 5 MG MG t_at_be MG dtime_a s_neede d} Simvastatin Simvastatin No 1{table QD Simvastati 40 MG 40 MG t_in_th n 40 MG e_eveni ng} Multivitami Multivitami No Multivitam n n in Lancets - Lancets - No Lancets - amLODIPine amLODIPine No 1{table QD amLODIPine Besylate 10 Besylate 10 t} Besylate MG MG 10 MG Metoprolol Metoprolol No 1{table BID Metoprolol Tartrate 50 Tartrate 50 t} Tartrate MG MG 50 MG Metformin Metformin No 1{table BID Metformin HCl 500 HCl 500 t} HCl 500 Metoprolol Metoprolol No 1{table BID Metoprolol Tartrate 50 Tartrate 50 t} Tartrate MG MG 50 MG Cardura 2 Cardura 2 No QD Cardura 2 MG MG MG Protonix 20 Protonix 20 No 1{table QD Protonix MG MG t} 20 MG Pantoprazol Pantoprazol No 1{table QD Pantoprazo e Sodium 20 e Sodium 20 t} le Sodium MG MG 20 MG Donepezil Donepezil No 1{table BID Donepezil HCl 5 MG HCl 5 MG t} HCl 5 MG Protonix 40 Protonix 40 No 1{table QD Protonix MG MG t} 40 MG Atorvastati Atorvastati No QD Atorvastat n Calcium n Calcium in Calcium 10 MG 10 MG 10 MG Effexor XR Effexor XR No 3{capsu QD Effexor XR 75 MG 75 MG les} 75 MG EpiPen EpiPen No EpiPen 2-Ney 0.3 2-Ney 0.3 2-Ney 0.3 MG/0.3ML MG/0.3ML MG/0.3ML Bactrim DS Bactrim DS No 1{table BID Bactrim DS 800-160 MG 800-160 MG t} 800-160 MG Bactroban 2 Bactroban 2 No 1{appli TID Bactroban % % cation_ 2 % to_affe cted_ar ea} Immunizations Ordered Immunization Filled Immunization Date Status Commen ts Source Name Name Adacel (Tdap) Adacel (Tdap) 2019-05-30 Completed [facility] 17:00:00 - [facility] Adacel (Tdap) Adacel (Tdap) 2019-05-30 Completed [facility] 17:00:00 - [facility] Adacel (Tdap) Adacel (Tdap) 2019-05-30 Completed [facility] 17:00:00 - [facility] Adacel (Tdap) Adacel (Tdap) 2019-05-30 Completed [facility] 17:00:00 - [facility] Adacel (Tdap) Adacel (Tdap) 2019-05-30 Completed [facility] 17:00:00 - [facility] Adacel (Tdap) Adacel (Tdap) 2019-05-30 Completed [facility] 17:00:00 - [facility] Adacel (Tdap) Adacel (Tdap) 2019-05-30 Completed [facility] 17:00:00 - [facility] Adacel (Tdap) Adacel (Tdap) 2019-05-30 Completed [facility] 17:00:00 - [facility] TDAP > 7 TDAP > 7 2019-05-30 Completed [facility]-Adacel Years-Adacel 00:00:00 - [facility] Fluzone Fluzone 2017-05-24 Completed [facility] 17:32:00 - [facility] Fluzone Fluzone 2017-05-24 Completed [facility] 17:32:00 - [facility] Fluzone Fluzone 2017-05-24 Completed [facility] 17:32:00 - [facility] Fluzone Fluzone 2017-05-24 Completed [facility] 17:32:00 - [facility] Fluzone Fluzone 2017-05-24 Completed [facility] 17:32:00 - [facility] Fluzone Fluzone 2017-05-24 Completed [facility] 17:32:00 - [facility] Fluzone Fluzone 2017-05-24 Completed [facility] 17:32:[facility] - [facility] Fluzone Fluzone 2017-05-24 Completed [facility] 17:32:00 [facility] Vital Signs Vital Name Observation Time Observation Value Comments Source HEIGHT 2022-07-28 00:40:00 157.5 cm WEIGHT 2022-07-28 00:40:00 65.8 kg HEIGHT 2022-07-28 00:40:00 157.5 cm WEIGHT 2022-07-28 00:40:00 65.8 kg height 2021-07-04 14:00:00 61.5 [in_i] [facility] weight 2021-07-04 14:00:00 153.4 [lb_av] [facility] temperature 2021-07-04 14:00:00 98.1 [degF] [facility] bmi 2021-07-04 14:00:00 28.51 kg/m2 [facility] oximetry 2021-07-04 14:00:00 97 % [facility] respiratory rate 2021-07-04 14:00:00 16 /min Comm on [facility] blood pressure 2021-07-04 14:00:00 133 mm[Hg] [facility] systolic [facility] blood pressure 2021-07-04 14:00:00 81 mm[Hg] [facility] diastolic [facility] height 2020-11-29 13:20:00 61.5 [in_i] [facility] weight 2020-11-29 13:20:00 142.0 [lb_av] [facility] temperature 2020-11-29 13:20:00 97.3 [degF] [facility] bmi 2020-11-29 13:20:00 26.39 kg/m2 [facility] oximetry 2020-11-29 13:20:00 98 % [facility] respiratory rate 2020-11-29 13:20:00 18 /min Comm on [facility] blood pressure 2020-11-29 13:20:00 130 mm[Hg] [facility] - systolic [facility] blood pressure 2020-11-29 13:20:00 89 mm[Hg] [facility] - diastolic [facility] Systolic (mm Hg) 2019-06-26 21:51:00 [facility] Diastolic (mm Hg) 2019-06-26 21:51:00 [facility] Heart Rate 2019-06-26 21:51:00 [facility] Respitory Rate 2019-06-26 21:51:00 [facility] [place] Height 2019-06-26 21:51:00 157.48 cm [facility] Weight 2019-06-26 21:51:00 [facility] BMI Calculated 2019-06-26 21:51:00 [facility] Systolic (mm Hg) 2019-01-15 16:55:00 [place] [facility] [place] Diastolic (mm Hg) 2019-01-15 16:55:00 [facility] [place] Heart Rate 2019-01-15 16:55:00 [facility] Respitory Rate 2019-01-15 16:55:00 [facility] [place] Height 2019-01-15 16:55:00 157.48 cm [facility] Weight 2019-01-15 16:55:00 [facility] BMI Calculated 2019-01-15 16:55:00 [facility] Weight 2018-10-29 17:07:00 [facility] BMI Calculated 2018-10-29 17:07:00 [facility] Height 2018-10-29 17:07:00 157.48 cm [facility] Systolic (mm Hg) 2018-10-29 17:07:00 [facility] Diastolic (mm Hg) 2018-10-29 17:07:00 [facility] Respitory Rate 2018-10-29 17:07:00 [facility] [place] Heart Rate 2018-10-29 17:07:00 [facility] Weight 2018-09-27 20:03:00 [facility] BMI Calculated 2018-09-27 20:03:00 [facility] [place] Height 2018-09-27 20:03:00 154.94 cm [facility] Respitory Rate 2018-09-27 20:03:00 [facility] [place] Systolic (mm Hg) 2018-09-27 20:03:00 [place] [facility] [place] Diastolic (mm Hg) 2018-09-27 20:03:00 [facility] [place] Heart Rate 2018-09-27 20:03:00 [facility] Systolic (mm Hg) 2014-02-18 23:00:00 [place] [facility] [place] Diastolic (mm Hg) 2014-02-18 23:00:00 [facility] [place] Respitory Rate 2014-02-18 23:00:00 [facility] Systolic (mm Hg) 2014-02-18 22:00:00 [facility] Diastolic (mm Hg) 2014-02-18 22:00:00 [facility] [place] Respitory Rate 2014-02-18 22:00:00 [facility] Systolic (mm Hg) 2014-02-18 21:00:00 [facility] [place] Diastolic (mm Hg) 2014-02-18 21:00:00 [facility] [place] Respitory Rate 2014-02-18 21:00:00 [facility] Temperature Oral (F) 2014-02-18 03:12:00 99.5 F [facility] Height 2014-02-17 16:42:00 172.72 cm [facility] BMI Calculated 2014-02-17 16:42:00 [facility] [place] Weight 2014-02-17 16:42:00 [facility] Heart Rate 2014-02-17 16:42:00 [facility] Procedures Procedure Date / Time Performed Performing Clinician Sourc e Back fusion [facility] Encounters Start End Encounter Admission Attending Care Care Encounter Source Date/Time Date/Time Type Type Clinicians Facility Department ID 2022-07-19 Outpatient ADDIS Sanchez [facility] [id number] Common 09:10:00 Erica [id number] [facility] 2022-01-27 Outpatient ADDIS Sanchez [facility] [id number] Common 10:14:00 Erica [facility] 2022-01-25 Outpatient ADDIS Sanchez [facility] [id number] Common 11:37:01 Erica [facility] 2021-08-31 [facility] [id number] Common 10:17:01 Erica [facility] 2021-07-01 Outpatient Sanchez, STLMLC STLMLC [id number] Common 13:41:00 Erica [facility] 2021-05-18 Outpatient Sanchez, STLMLC STLMLC [id number] Common 14:19:31 Jesseniamarlene [facility] 2021-05-18 Outpatient STLMLC STLMLC [id number] Common 13:35:35 [facility] 2021-05-18 Outpatient Damián, STLMLC STLMLC [id number] Common 13:33:23 Haven [facility] 2021-05-18 Outpatient Damián, STLMLC STLMLC [id number] Common 12:42:13 [place] [address] [facility] 2021-05-18 Outpatient Damián, STLMLC STLMLC [id number] Common 12:18:00 [place] 82[address] [facility] 2021-05-18 Outpatient Damián, STLMLC STLMLC [id number] Common 12:04:18 [place] 487[address] [facility] 2021-05-18 Outpatient Damián, STLMLC STLMLC [id number] Common 12:02:58 [place] 536[address] [facility] 2021-05-18 Outpatient STLMLC STLMLC [id number] Common 12:02:39 86577 [facility] 2021-05-18 Outpatient STLMLC STLMLC [id number] Common 11:59:31 78137 [facility] 2021-05-18 Outpatient Millender, STLMLC STLMLC [id number] Common 11:47:59 Lorraine 98898 [facility] 2021-05-18 Outpatient Millender, STLMLC STLMLC [id number] Common 11:45:40 Lorraine 322[address] [facility] 2021-05-18 Outpatient Millender, STLMLC STLMLC [id number] Common 11:26:19 Lorraine 83414 [facility] 2021-05-18 Outpatient Millender, STLMLC STLMLC [id number] Common 11:26:07 Lorraine 35885 [facility] 2021-05-18 Outpatient Millender, STLMLC STLMLC [id number] Common 11:16:08 Lorraine 84557 [facility] 2021-05-18 Outpatient Millender, STLMLC STLMLC [id number] Common 11:02:11 Lorraine 97166 [facility] 2021-05-18 Outpatient Millender, STLMLC STLMLC [id number] Common 11:01:50 Lorraine 37309 [facility] 2022-07-28 2022-08-16 Inpatient ER KIMMY [facility] Neuro ICU [id number] [facility] 00:21:00 14:25:00 SAI 2022-01-27 2022-01-27 OFFICE STLMLC STLMLC [id number] Co mmon 00:00:00 00:00:00 VISIT Psychiatric PT - [facility] 2021-07-04 2021-07-04 OFFICE STLMLC STLMLC [id number] Co mmon 00:00:00 00:00:00 VISIT Psychiatric PT - [facility] L[address]EL [address] [place] [address] 2021-06-16 2021-06-16 (TEL) STLMLC STLMLC [id number] Co mmon 00:00:00 00:00:00 [facility] 2021-03-28 2021-03-28 (TEL) STLMLC STLMLC [id number] Co mmon 00:00:00 00:00:00 [facility] 2020-12-22 2020-12-22 (TEL) STLMLC STLMLC [id number] Co mmon 00:00:00 00:00:00 [facility] 2020-12-16 2020-12-16 (TEL) STLMLC STLMLC [id number] Co mmon 00:00:00 00:00:00 [facility] 2020-12-03 2020-12-03 (TEL) STLMLC STLMLC [id number] Co mmon 00:00:00 00:00:00 [facility] 2020-11-29 2020-11-29 OFFICE STLMLC STLMLC [id number] Co mmon 00:00:00 00:00:00 VISIT [facility] LEV[facility] 2020-04-30 2020-04-30 Outpatient STLMLC STLMLC [id number] Common 00:00:00 00:00:00 [facility] 2020-04-28 2020-04-28 Outpatient STLMLC STLMLC [id number] Common 00:00:00 00:00:00 [facility] 2020-04-07 2020-04-07 Outpatient STLMLC STLMLC [id number] Common 00:00:00 00:00:00 [facility] 2020-04-02 2020-04-02 Outpatient STLMLC STLMLC [id number] Common 00:00:00 00:00:00 [facility] 2020-03-17 2020-03-17 Outpatient STLMLC STLMLC [id number] Common 00:00:00 00:00:00 [facility] 2020-03-12 2020-03-12 Outpatient STLMLC STLMLC [id number] Common 00:00:00 00:00:00 [facility] 2020-03-08 2020-03-08 Outpatient STLMLC STLMLC [id number] Common 00:00:00 00:00:00 [facility] 2020-03-04 2020-03-04 Outpatient STLMLC STLMLC [id number] Common 00:00:00 00:00:00 [facility] 2020-03-03 2020-03-03 Outpatient STLMLC STLMLC [id number] Common 00:00:00 00:00:00 [facility] 2020-02-27 2020-02-27 Outpatient STLMLC STLMLC [id number] Common 00:00:00 00:00:00 [facility] 2020-01-05 2020-01-05 [facility] [id number] Common 11:20:00 11:20:[address] [facility] [address] [facility] 2020-01-05 2020-01-05 Outpatient STLMLC STLMLC [id number] Common 00:00:00 00:00:00 [facility] 2019-12-24 2019-12-24 [facility] [id number] Common 17:37:00 17:37:00 t [facility] [address] [facility] 2019-12-15 2019-12-15 [facility] [id number] Common 13:00:00 13:00:[address] [facility] [address] [facility] 2019-12-04 2019-12-04 [facility] [id number] Common 08:33:00 08:33:00 t [facility] [address] [facility] 2019-11-07 2019-11-07 Ambulatory nullFlavo MNA [id number] Memoria 19:00:00 19:00:00 Pre-Reg r Neurology 07 l Ulises Pressleyann 2019-11-07 2019-11-07 Ambulatory nullFlavo MNA [id number] Memoria 19:00:00 19:00:00 Pre-Reg r Neurology 08 l Ulises Pressleyann 2019-11-07 2019-11-07 Ambulatory nullFlavo MNA [id number] Memoria 19:00:00 19:00:00 Pre-Reg r Neurology 08 l Ulises Pressleyann 2019-11-07 2019-11-07 Ambulatory nullFlavo MNA [id number] Memoria 19:00:00 19:00:00 Pre-Reg r Neurology 07 l Ulises Pressleyann 2019-11-07 2019-11-07 Outpatient MHIE MHIE [id number] Memoria 14:00:00 14:00:00 08 clara Du Bois 2019-11-07 2019-11-07 Outpatient MHIE MHIE [id number] Memoria 14:00:00 14:00:00 07 clara Gonsalo 2019-11-07 2019-11-07 Outpatient JESUS CeballosSCHBHASKAR STEPHENSONMISCHER [id number] 14:00:00 14:00:00 Oscar Nayak 2019-11-07 2019-11-07 Outpatient Krell, MHMISCHER MHMISCHER [id number] 14:00:00 14:00:00 Oscar 08 Nael 2019-10-16 2019-10-16 [facility] [id number] Common 08:38:00 08:38:[address] [facility] [address] [facility] 2019-10-12 2019-10-12 Out[facility] [id number] Common 18:27:00 18:27:[address] [facility] [address] [facility] 2019-10-03 2019-10-03 Out[facility] 30 [id number] Common 10:20:00 10:20:[address] [facility] [address] [facility] 2019-06-26 2019-06-27 Outpatient nullFlavo MNA [id number] Memoria 21:00:00 05:59:59 r Neurology 06 l Ulises Brush 2019-06-26 2019-06-27 Outpatient nullFlavo MNA [id number] Memoria 21:00:00 05:59:59 r Neurology 06 l Ulises Bursh 2019-06-26 2019-06-26 [facility] [id number] 15:00:00 23:59:59 Oscar 06 Nael 2019-06-26 2019-06-26 Outpatient MHIE IE [id number] Memoria 15:00:00 15:00:00 06 l Gonsalo 2019-06-03 2019-06-03 Out[facility] [id number] Common 03:07:00 03:07:[address] [facility] [address] [facility] 2019-05-30 2019-05-30 Out[facility] [id number] Common 15:00:00 15:00:[address] [facility] [address] [facility] 2019-05-19 2019-05-19 Outpatient [facility] [id number] Common 19:21:00 19:21:[address] [facility] [address] [facility] 2019-05-14 2019-05-14 Outpatient [facility] [id number] Common 00:12:00 00:12:[address] [facility] [address] [facility] 2019-05-13 2019-05-13 Outpatient [facility] 29 [id number] Common 23:58:00 23:58:00 t [facility] [address] [facility] 2019-05-13 2019-05-13 Outpatient [facility] [id number] Common 13:45:00 13:45:00 [facility] it Road [facility] 2019-03-18 2019-03-20 Outside nullFlavo MNA [id number] Memoria 18:48:37 05:59:59 Medical r Neurology 00 l Records Ulises Brush 2019-03-18 2019-03-20 Outside nullFlavo MNA [id number] Memoria 18:48:37 05:59:59 Medical r Neurology 00 l Records Ulises Brush 2019-03-18 2019-03-19 Outpatient MHMISCHER MHMISCHER [id number] 12:48:37 23:59:59 00 2019-02-04 2019-02-04 Ambulatory nullFlavo MNA [id number] Memoria 18:00:00 18:00:00 Pre-Reg r Neurology 05 l Ulises Pressleyann 2019-02-04 2019-02-04 Ambulatory nullFlavo MNA [id number] Memoria 18:00:00 18:00:00 Pre-Reg r Neurology 05 l Jerome Gonsalo 2019-02-04 2019-02-04 Outpatient MHIE MHIE [id number] Memoria 13:00:00 13:00:00 Luma elizabeth Gonsalo 2019-02-04 2019-02-04 [id number] 13:00:00 13:00:00 Oscar Luma Nael 2019-01-29 2019-01-29 Ambulatory nullFlavo MNA [id number] Memoria 19:15:00 19:15:00 Pre-Reg r Neurology 04 l Ulises Pressleyann 2019-01-29 2019-01-29 Ambulatory nullFlavo MNA [id number] Memoria 19:15:00 19:15:00 Pre-Reg r Neurology 04 l Ulises Pressleyann 2019-01-29 2019-01-29 Outpatient MHIE MHIE [id number] Memoria 14:15:00 14:15:00 04 clara Brush 2019-01-29 2019-01-29 Outpatient Tucker [facility] [id number] 14:15:00 14:15:00 Oscar 04 Nael 2019-01-15 2019-01-16 Outpatient nullFlavo MNA [id number] Memoria 16:30:00 04:59:59 r Neurology 03 clara Brush 2019-01-15 2019-01-16 Outpatient nullFlavo MNA [id number] Memoria 16:30:00 04:59:59 r Neurology 03 l Ulises Brush 2019-01-15 2019-01-15 Outpatient Tucker [facility] [id number] 11:30:00 23:59:59 Oscar 03 Nael 2019-01-15 2019-01-15 Outpatient MHIE IE [id number] Memoria 11:30:00 11:30:00 03 clara [place] 2018-12-10 2018-12-10 Ambulatory nullFlavo MNA [id number] Memoria 16:15:00 16:15:00 Pre-Reg r Neurology 02 l Ulises Gonsalo 2018-12-10 2018-12-10 Ambulatory nullFlavo MNA [id number] Memoria 16:15:00 16:15:00 Pre-Reg r Neurology 02 clara Montgomery Gonsalo 2018-12-10 2018-12-10 Outpatient MHIE IE [id number] Memoria 11:15:00 11:15:00 02 clara [place] 2018-12-10 2018-12-10 Outpatient Tucker [facility] [id number] 11:15:00 11:15:00 Oscar 02 Nael 2018-10-29 2018-10-30 Outpatient nullFlavo MNA [id number] Memoria 16:45:00 04:59:59 r Neurology 01 clara Brush 2018-10-29 2018-10-30 Outpatient nullFlavo MNA [id number] Memoria 16:45:00 04:59:59 r Neurology 01 clara Pressleyann 2018-10-29 2018-10-29 [facility] [id number] 11:45:00 23:59:59 Oscar Nael 2018-10-29 2018-10-29 Outpatient MHIE IE [id number] Memoria 11:45:00 11:45:00 01 l [place] 2018-09-27 2018-09-28 Outpatient nullFlavo MNA [id number] Memoria 19:45:00 04:59:59 r Neurology 00 l Ulises Du Bois 2018-09-27 2018-09-28 Outpatient nullFlavo MNA [id number] Memoria 19:45:00 04:59:59 r Neurology 00 l [facility] 2018-09-27 2018-09-27 Outpatient Tucker [facility]ISCHER [facility] [id number] 14:45:00 23:59:59 Oscar 00 [facility] 2014-02-17 2014-02-19 Inpatient nullFlavo [facility] [id number] Memoria 16:41:00 02:00:[address] 2014-02-17 2014-02-19 Inpatient [facility]Flavo [facility] [id number] Memoria 16:41:00 02:00:[address] 2014-02-17 2014-02-18 Outpatient Betancourt, [id number] 11:41:00 21:00:00 Susannah [id number] Radha [id number] Results Test Description Test Time Test Comments Results Result Comments Source POCT-GLUCOSE METER 2022-08-16 12:01:41 Test Item Value Reference Range Interpretation Comme nts POC-GLUCOSE METER ([employer]) 98 mg/dL 70-110 : TESTED AT [facility] [address] [facility] (test code = 1538) [facility] X, 15238: Vitamin Manager/Techni gallo ID = [id number] for ARTURO Macedo POCT-GLUCOSE [id number] 08:44:44 Test Item Value Reference Range Interpretation Comments POC-GLUCOSE METER 106 mg/dL 70-110 : TESTED A [facility] [address] ([employer]) (test code [facility], = 1538) 51092: Vitamin Manager/Techni gallo ID = [id number] for KEVIN Mackay POCT-GLUCOSE [id number] 17:04:23 Test Item Value Reference Range Interpretation Comments POC-GLUCOSE METER 107 mg/dL 70-110 : TESTED A T [facility] 6720 (BEAKER) (test code [facility], = 1538) 87129: Vitamin Manager/Techni gallo ID = [id number] for KEVIN Mackay POCT-GLUCOSE [id number] 11:55:58 Test Item Value Reference Range Interpretation Comments POC-GLUCOSE METER 123 mg/dL 70-110 H : TESTED A T [facility] 6720 (BEAKER) (test code = [facility], 1538) 09712: Vitamin Manager/Techni gallo ID = [id number] for ANA MARIA HERNANDEZ POCT-GLUCOSE [id number] 08:34:27 Test Item Value Reference Range Interpretation Comments POC-GLUCOSE METER 100 mg/dL 70-110 : TESTED A T [facility] 6720 (BEAKER) (test code = [facility], 1538) 24049: Vitamin Manager/Techni gallo ID = [id number] for ANA MARIA HERNANDEZ BASIC METABOLIC [id number] 04:56:03 Test Item Value Reference Range Interpretation Comments SODIUM (BEAKER) 143 meq/L 136-145 (test code = 381) POTASSIUM 3.6 meq/L 3.5-5.1 (BEAKER) (test code = 379) CHLORIDE (BEAKER) 112 meq/L 98-107 H (test code = 382) CO2 (BEAKER) 23 meq/L 22-29 (test code = 355) BLOOD UREA 18 mg/dL 7-21 NITROGEN (BEAKER) (test code = 354) CREATININE 0.81 mg/dL 0.57-1.25 (BEAKER) (test code = 358) GLUCOSE RANDOM 91 mg/dL 70-105 (BEAKER) (test code = 652) CALCIUM (BEAKER) 9.2 mg/dL 8.4-10.2 (test code = 697) EGFR (BEAKER) 74 Interpretatio n of eGFR (test code = mL/min/1.73 values Stage De scription 1092) sq m Result G1 Ivonne l or high >=90 G2 Mildly decreased 60-89 G3a Mildl y to moderately 45-5 9 G3b Moderately to s everely 30-44 G4 Severl y decreased 15-29 G5 Kidney failure <15Reported eGF R is based on the CKD-EPI 2020 equation that d oes not use a race coefficientEsti mated GFR is not as accur ate as Creatinine Gissel benito in predicting glom erular filtration rate . Estimated GFR is not appl icable for dialysis patien ts Vitamin Manager ID - MARCOCBC W/PLT COUNT & AUTO [id number] 04:36:05 Test Item Value Reference Range Interpretation Comments WHITE BLOOD CELL COUNT (BEAKER) 8.0 K/ L 3.5-10.5 (test code = 775) RED BLOOD CELL COUNT (BEAKER) 4.72 M/ L 3.93-5.22 (test code = 761) HEMOGLOBIN (BEAKER) (test code = 13.5 GM/DL 11.2-15.7 410) HEMATOCRIT (BEAKER) (test code = 40.7 % 34.1-44.9 411) MEAN CORPUSCULAR VOLUME (BEAKER) 86 fL 79-95 (test code = 753) MEAN CORPUSCULAR HEMOGLOBIN 28.6 pg 25.6-32.2 (BEAKER) (test code = 751) MEAN CORPUSCULAR HEMOGLOBIN CONC 33.2 GM/DL 32.2-35.5 (BEAKER) (test code = 752) RED CELL DISTRIBUTION WIDTH 14.3 % 11.7-14.4 (BEAKER) (test code = 412) PLATELET COUNT (BEAKER) (test 256 K/CU MM 150-450 code = 756) MEAN PLATELET VOLUME (BEAKER) 11.5 fL 9.4-12.3 (test code = 754) NUCLEATED RED BLOOD CELLS 0 /100 WBC 0-0 (BEAKER) (test code = 413) NEUTROPHILS RELATIVE PERCENT 56 % (BEAKER) (test code = 429) LYMPHOCYTES RELATIVE PERCENT 29 % (BEAKER) (test code = 430) MONOCYTES RELATIVE PERCENT 10 % (BEAKER) (test code = 431) EOSINOPHILS RELATIVE PERCENT 4 % (BEAKER) (test code = 432) BASOPHILS RELATIVE PERCENT 1 % (BEAKER) (test code = 437) NEUTROPHILS ABSOLUTE COUNT 4.50 K/ L 1.56-6.13 (BEAKER) (test code = 670) LYMPHOCYTES ABSOLUTE COUNT 2.29 K/ L 1.18-3.74 (BEAKER) (test code = 414) MONOCYTES ABSOLUTE COUNT (BEAKER) 0.83 K/ L 0.24-0.36 H (test code = 415) EOSINOPHILS ABSOLUTE COUNT 0.34 K/ L 0.04-0.36 (BEAKER) (test code = 416) BASOPHILS ABSOLUTE COUNT (BEAKER) 0.05 K/ L 0.01-0.08 (test code = 417) IMMATURE GRANULOCYTES-RELATIVE 0.20 % 0.00-1.00 PERCENT (BEAKER) (test code = 2801) POCT-GLUCOSE [id number] 17:14:23 Test Item Value Reference Range Interpretation Comments POC-GLUCOSE METER 89 mg/dL 70-110 : TESTED A T [facility] 6720 (BEAKER) (test code = [facility], 153) 53969: Vitamin Manager/Techni gallo ID = [id number] for EKVIN Mackay POCT-GLUCOSE [id number] 11:38:21 Test Item Value Reference Range Interpretation Comments POC-GLUCOSE METER 132 mg/dL 70-110 H : TESTED A T [facility] 6720 (BEAKER) (test code [facility], = 1538) 96692: Vitamin Manager/Techni gallo ID = [id number] for Spit z, Breana POCT-GLUCOSE [id number] 08:21:54 Test Item Value Reference Range Interpretation Comments POC-GLUCOSE METER 90 mg/dL 70-110 : TESTED A T [facility] 6720 (BEAKER) (test code [facility], = 1538) 62584: Vitamin Manager/Techni gallo ID = [id number] for Spit z, Breana POCT-GLUCOSE [id number] 23:08:21 Test Item Value Reference Range Interpretation Comments POC-GLUCOSE METER 104 mg/dL 70-110 : TESTED A T [facility] 6720 (BEAKER) (test code = [facility], 1538) 61920: Vitamin Manager/Techni gallo ID = [id number] for RE NITINS, ELADIO POCT-GLUCOSE [id number] 17:41:19 Test Item Value Reference Range Interpretation Comments POC-GLUCOSE METER 92 mg/dL 70-110 : TESTED A T [facility] 6720 (BEAKER) (test code = [facility], 1538) 50373: Vitamin Manager/Techni gallo ID = [id number] for LEWI S -Keny, LATAND AMINAH POCT-GLUCOSE [id number] 13:06:39 Test Item Value Reference Range Interpretation Comments POC-GLUCOSE METER 75 mg/dL 70-110 : TESTED A T [facility] 6720 (BEAKER) (test code = [facility], 1538) 47947: Vitamin Manager/Techni gallo ID = [id number] for LEWI S -Keny, LATAND AMINAH POCT-GLUCOSE [id number] 08:47:12 Test Item Value Reference Range Interpretation Comments POC-GLUCOSE METER 93 mg/dL 70-110 : TESTED A T [facility] 6720 (BEAKER) (test code = [facility], 1538) 51367: Vitamin Manager/Techni gallo ID = [id number] for LEWI S -Keny, LATAND AMINAH POCT-GLUCOSE [id number] 17:32:08 Test Item Value Reference Range Interpretation Comments POC-GLUCOSE METER 96 mg/dL 70-110 : TESTED A T [facility] 6720 (BEAKER) (test code = [facility], 1538) 51297: Vitamin Manager/Techni gallo ID = [id number] for LEWI S -Keny, LATAND AMINAH POCT-GLUCOSE [id number] 13:00:41 Test Item Value Reference Range Interpretation Comments POC-GLUCOSE METER 137 mg/dL 70-110 H : TESTED A T [facility] 6720 (BEAKER) (test code [facility], = 1538) 50115: Vitamin Manager/Techni gallo ID = [id number] for LEWI S -Keny, LATAND AMINAH POCT-GLUCOSE [id number] 09:06:19 Test Item Value Reference Range Interpretation Comments POC-GLUCOSE METER 102 mg/dL 70-110 : TESTED A T [facility] 6720 (BEAKER) (test code [facility], = 1538) 96560: Vitamin Manager/Techni gallo ID = [id number] for LEWI S -Keny, LATAND AMINAH POCT-GLUCOSE [id number] 17:19:43 Test Item Value Reference Range Interpretation Comments POC-GLUCOSE METER 97 mg/dL 70-110 : TESTED A T [facility] 6720 (BEAKER) (test code [facility], = 1538) 61104: Vitamin Manager/Techni gallo ID = [id number] for Spit z, Breana POCT-GLUCOSE [id number] 12:35:51 Test Item Value Reference Range Interpretation Comments POC-GLUCOSE METER 90 mg/dL 70-110 : TESTED A T [facility] 6720 (BEAKER) (test code [facility], = 1538) 86742: Vitamin Manager/Techni gallo ID = [id number] for Spit z, Breana POCT-GLUCOSE [id number] 08:25:34 Test Item Value Reference Range Interpretation Comments POC-GLUCOSE METER 94 mg/dL 70-110 : TESTED A T [facility] 6720 (BEAKER) (test code [facility], = 1538) 59127: Vitamin Manager/Techni gallo ID = [id number] for Spit z, Breana POCT-GLUCOSE [id number] 00:27:02 Test Item Value Reference Range Interpretation Comments POC-GLUCOSE METER 106 mg/dL 70-110 : TESTED A T [facility] 6720 (BEAKER) (test code = [facility], 153) 77132: Vitamin Manager/Techni gallo ID = [id number] for WI KENNY, LILIAN POCT-GLUCOSE [id number] 17:14:53 Test Item Value Reference Range Interpretation Comments POC-GLUCOSE METER 118 mg/dL 70-110 H : TESTED A T [facility] 6720 (BEAKER) (test code = [facility], [facility]8) 39512: Vitamin Manager/Techni gallo ID = [id number] for ST OJCIC, NADA POCT-GLUCOSE [id number] 12:08:59 Test Item Value Reference Range Interpretation Comments POC-GLUCOSE METER 102 mg/dL 70-110 : TESTED A T [facility] 6720 (BEAKER) (test code = [facility], 1538) 27523: Vitamin Manager/Techni gallo ID = [id number] for ST OJCIC, NADA POCT-GLUCOSE [id number] 07:27:41 Test Item Value Reference Range Interpretation Comments POC-GLUCOSE METER 104 mg/dL 70-110 : TESTED A T [facility] 6720 (BEAKER) (test code = [facility], 1538) 85903: Vitamin Manager/Techni gallo ID = [id number] for ANA MARIA HERNANDEZ BASIC METABOLIC [id number] 04:53:43 Test Item Value Reference Range Interpretation Comments SODIUM (BEAKER) 141 meq/L 136-145 (test code = 381) POTASSIUM 3.6 meq/L 3.5-5.1 Specimen slight ly (BEAKER) (test hemolyzed code = 379) CHLORIDE (BEAKER) 112 meq/L 98-107 H (test code = 382) CO2 (BEAKER) 20 meq/L 22-29 L (test code = 355) BLOOD UREA 18 mg/dL 7-21 NITROGEN (BEAKER) (test code = 354) CREATININE 0.81 mg/dL 0.57-1.25 Specimen slight ly (BEAKER) (test hemolyzed code = 358) GLUCOSE RANDOM 90 mg/dL 70-105 (BEAKER) (test code = 652) CALCIUM (BEAKER) 9.0 mg/dL 8.4-10.2 (test code = 697) EGFR (BEAKER) 74 Interpretatio n of eGFR (test code = mL/min/1.73 values Stage De scription 1092) sq m Result G1 Ivonne l or high >=90 G2 Mildly decreased 60-89 G3a Mildl y to moderately 45-5 9 G3b Moderately to s everely 30-44 G4 Severl y decreased 15-29 G5 Kidney failure <15Reported eGF R is based on the CKD-EPI 2020 equation that d oes not use a race coefficientEsti mated GFR is not as accur ate as Creatinine Gissel benito in predicting glom erular filtration rate . Estimated GFR is not appl icable for dialysis patien ts Vitamin Manager ID - ADMINCBC W/PLT COUNT & AUTO [id number] 04:34:58 Test Item Value Reference Range Interpretation Comments WHITE BLOOD CELL COUNT (BEAKER) 8.2 K/ L 3.5-10.5 (test code = 775) RED BLOOD CELL COUNT (BEAKER) 4.70 M/ L 3.93-5.22 (test code = 761) HEMOGLOBIN (BEAKER) (test code = 13.7 GM/DL 11.2-15.7 410) HEMATOCRIT (BEAKER) (test code = 41.8 % 34.1-44.9 411) MEAN CORPUSCULAR VOLUME (BEAKER) 89 fL 79-95 (test code = 753) MEAN CORPUSCULAR HEMOGLOBIN 29.1 pg 25.6-32.2 (BEAKER) (test code = 751) MEAN CORPUSCULAR HEMOGLOBIN CONC 32.8 GM/DL 32.2-35.5 (BEAKER) (test code = 752) RED CELL DISTRIBUTION WIDTH 14.2 % 11.7-14.4 (BEAKER) (test code = 412) PLATELET COUNT (BEAKER) (test 242 K/CU MM 150-450 code = 756) MEAN PLATELET VOLUME (BEAKER) 11.2 fL 9.4-12.3 (test code = 754) NUCLEATED RED BLOOD CELLS 0 /100 WBC 0-0 (BEAKER) (test code = 413) NEUTROPHILS RELATIVE PERCENT 52 % (BEAKER) (test code = 429) LYMPHOCYTES RELATIVE PERCENT 30 % (BEAKER) (test code = 430) MONOCYTES RELATIVE PERCENT 12 % (BEAKER) (test code = 431) EOSINOPHILS RELATIVE PERCENT 4 % (BEAKER) (test code = 432) BASOPHILS RELATIVE PERCENT 1 % (BEAKER) (test code = 437) NEUTROPHILS ABSOLUTE COUNT 4.30 K/ L 1.56-6.13 (BEAKER) (test code = 670) LYMPHOCYTES ABSOLUTE COUNT 2.50 K/ L 1.18-3.74 (BEAKER) (test code = 414) MONOCYTES ABSOLUTE COUNT (BEAKER) 0.98 K/ L 0.24-0.36 H (test code = 415) EOSINOPHILS ABSOLUTE COUNT 0.33 K/ L 0.04-0.36 (BEAKER) (test code = 416) BASOPHILS ABSOLUTE COUNT (BEAKER) 0.08 K/ L 0.01-0.08 (test code = 417) IMMATURE GRANULOCYTES-RELATIVE 0.40 % 0.00-1.00 PERCENT (BEAKER) (test code = 2801) POCT-GLUCOSE [id number] 23:31:30 Test Item Value Reference Range Interpretation Comments POC-GLUCOSE METER 107 mg/dL 70-110 : TESTED A T [facility] 6720 (BEAKER) (test code = [place], 1538) 15566: Vitamin Manager/Techni gallo ID = [id number] for Xi a Coy POCT-GLUCOSE [id number] 17:45:50 Test Item Value Reference Range Interpretation Comments POC-GLUCOSE METER 128 mg/dL 70-110 H : TESTED A T [facility] 6720 (BEAKER) (test code [facility], = 1538) 67540: Vitamin Manager/Techni gallo ID = [id number] for LEWI S -Keny, LATAND AMINAH POCT-GLUCOSE [id number] 12:53:18 Test Item Value Reference Range Interpretation Comments POC-GLUCOSE METER 100 mg/dL 70-110 : TESTED A T [facility] 6720 (BEAKER) (test code [facility], = 1538) 22584: Vitamin Manager/Techni gallo ID = [id number] for LEWI S -Keny, LATAND AMINAH POCT-GLUCOSE [id number] 09:22:23 Test Item Value Reference Range Interpretation Comments POC-GLUCOSE METER 89 mg/dL 70-110 : TESTED A T [facility] 6720 (BEAKER) (test code = [facility], 1538) 10542: Vitamin Manager/Techni gallo ID = [id number] for LEWI S -Keny, LATAND AMINAH POCT-GLUCOSE [id number] 23:25:04 Test Item Value Reference Range Interpretation Comments POC-GLUCOSE METER 105 mg/dL 70-110 : TESTED A T [facility] 6720 (BEAKER) (test code = [facility], 1538) 44324: Vitamin Manager/Techni gallo ID = [id number] for Xi a, Fan POCT-GLUCOSE [id number] 17:37:48 Test Item Value Reference Range Interpretation Comments POC-GLUCOSE METER 94 mg/dL 70-110 : TESTED A T [facility] 6720 (BEAKER) (test code = [facility], 1538) 53666: Vitamin Manager/Techni gallo ID = [id number] for STOJ CIC, NADA POCT-GLUCOSE [id number] 12:07:13 Test Item Value Reference Range Interpretation Comments POC-GLUCOSE METER 123 mg/dL 70-110 H : TESTED A T [facility] 6720 (BEAKER) (test code [facility], = 1538) 47820: Vitamin Manager/Techni gallo ID = [id number] for LEWI S -Keny, LATAND AMINAH POCT-GLUCOSE [id number] 08:18:22 Test Item Value Reference Range Interpretation Comments POC-GLUCOSE METER 96 mg/dL 70-110 : TESTED A T [facility] 6720 (BEAKER) (test code = [facility], [facility]) 42860: Vitamin Manager/Techni gallo ID = [id number] for LEWI S -Keny, LATAND AMINAH POCT-GLUCOSE [id number] 17:13:12 Test Item Value Reference Range Interpretation Comments POC-GLUCOSE METER 121 mg/dL 70-110 H : TESTED A T [facility] 6720 (BEAKER) (test code = [facility], [facility]) 85894: Vitamin Manager/Techni gallo ID = [id number] for Re serena, Annette POCT-GLUCOSE [id number] 12:37:51 Test Item Value Reference Range Interpretation Comments POC-GLUCOSE METER 102 mg/dL 70-110 : TESTED A T [facility] 6720 (BEAKER) (test code = [facility], [facility]) 76690: Vitamin Manager/Techni gallo ID = [id number] for Re serena, Annette POCT-GLUCOSE [id number] 09:23:08 Test Item Value Reference Range Interpretation Comments POC-GLUCOSE METER 95 mg/dL 70-110 : TESTED A T [facility] 6720 (BEAKER) (test code = [facility], 153) 79362: Vitamin Manager/Techni gallo ID = [id number] for Eliot e, Annette POCT-GLUCOSE [id number] 21:18:13 Test Item Value Reference Range Interpretation Comments POC-GLUCOSE METER 140 mg/dL 70-110 H : TESTED A T [facility] 6720 (BEAKER) (test code = [facility], 153) 38715: Vitamin Manager/Techni gallo ID = [id number] for Wo ods, Bindu POCT-GLUCOSE [id number] 16:30:20 Test Item Value Reference Range Interpretation Comments POC-GLUCOSE METER 118 mg/dL 70-110 H : TESTED A T [facility] 67[facility] (BEAKER) (test code [facility], = 1538) 02316: Vitamin Manager/Techni gallo ID = [id number] for LEWI S -Keny, LATAND AMINAH POCT-GLUCOSE [id number] 11:35:05 Test Item Value Reference Range Interpretation Comments POC-GLUCOSE METER 128 mg/dL 70-110 H : TESTED A T [facility] 6720 (BEAKER) (test code [facility], = 153) 29073: Vitamin Manager/Techni gallo ID = [id number] for KEVIN Mackay POCT-GLUCOSE [id number] 08:53:38 Test Item Value Reference Range Interpretation Comments POC-GLUCOSE METER 100 mg/dL 70-110 : TESTED A T [facility] (BEAKER) (test code = [facility], 153) 57696: Vitamin Manager/Techni gallo ID = [id number] for CO RTEZ, LES POCT-GLUCOSE [id number] 22:16:08 Test Item Value Reference Range Interpretation Comments POC-GLUCOSE METER 105 mg/dL 70-110 : TESTED A T [facility] 6720 ([facility]) (test code = [facility], [facility]) 15898: Vitamin Manager/Techni gallo ID = [id number] for JOSEPH CHANDLER POCT-GLUCOSE [id number] 17:50:47 Test Item Value Reference Range Interpretation Comments POC-GLUCOSE METER 198 mg/dL 70-110 H : TESTED A T [facility] 67[facility] ([facility]) (test code = [facility], 153) 01761: Vitamin Manager/Techni gallo ID = [id number] for ALBERT GREENWOODINA POCT-GLUCOSE [id number] 12:04:03 Test Item Value Reference Range Interpretation Comments POC-GLUCOSE METER 138 mg/dL 70-110 H : TESTED A T [facility] 6720 (BEAKER) (test code = [facility], 153) 36017: Vitamin Manager/Techni gallo ID = [id number] for TIMMY PÉREZ POCT-GLUCOSE [id number] 08:36:03 Test Item Value Reference Range Interpretation Comments POC-GLUCOSE METER 97 mg/dL 70-110 : TESTED A T [facility] 6720 (BEAKER) (test code = [facility], 153) 02589: Vitamin Manager/Techni gallo ID = [id number] for LUTHER RITA RENETTA [employer]IC METABOLIC [id number] 06:48:33 Test Item Value Reference Range Interpretation Comments SODIUM (BEAKER) 142 meq/L 136-145 (test code = 381) POTASSIUM 3.5 meq/L 3.5-5.1 (BEAKER) (test code = 379) CHLORIDE (BEAKER) 112 meq/L 98-107 H (test code = 382) CO2 (BEAKER) 23 meq/L 22-29 (test code = 355) BLOOD UREA 15 mg/dL 7-21 NITROGEN (BEAKER) (test code = 354) CREATININE 0.84 mg/dL 0.57-1.25 (BEAKER) (test code = 358) GLUCOSE RANDOM 96 mg/dL 70-105 (BEAKER) (test code = 652) CALCIUM (BEAKER) 9.4 mg/dL 8.4-10.2 (test code = 697) EGFR (BEAKER) 71 Interpretatio n of eGFR (test code = mL/min/1.73 values Stage De scription 1092) sq m Result G1 Ivonne l or high >=90 G2 Mildly decreased 60-89 G3a Mildl y to moderately 45-5 9 G3b Moderately to s everely 30-44 G4 Severl y decreased 15-29 G5 Kidney failure <15Reported eGF R is based on the CKD-EPI 2020 equation that d oes not use a race coefficientEsti mated GFR is not as accur ate as Creatinine Gissel benito in predicting glom erular filtration rate . Estimated GFR is not appl icable for dialysis patien ts Vitamin Manager ID - MMPOCT-GLUCOSE [id number] 06:40:30 Test Item Value Reference Range Interpretation Comments POC-GLUCOSE METER 104 mg/dL 70-110 : TESTED A T [facility] ([facility]) (test code = [facility], 153) [address]: Vitamin Manager/Techni gallo ID = [id number] for Lisa a, Fan POCT-GLUCOSE [id number] 17:43:25 Test Item Value Reference Range Interpretation Comments POC-GLUCOSE METER 102 mg/dL 70-110 : TESTED A T [facility] 67[facility] ([facility]) (test code = [facility], 153) [address]: Vitamin Manager/Techni gallo ID = [id number] for TIMMY PÉREZ POCT-GLUCOSE [id number] 13:14:22 Test Item Value Reference Range Interpretation Comments POC-GLUCOSE METER 106 mg/dL 70-110 : TESTED A T [facility] 6720 (BEAKER) (test code = [facility] [address] [place], 1538) [address]: Vitamin Manager/Techni gallo ID = [id number] for TIMMY PÉREZ POCT-GLUCOSE [id number] 08:43:05 Test Item Value Reference Range Interpretation Comments POC-GLUCOSE METER 102 mg/dL 70-110 : TESTED A T [facility] 6720 (BEAKER) (test code = [facility], 1538) [address]: Vitamin Manager/Techni gallo ID = [id number] for TIMMY PÉREZ SARS-COV2/RT-PCR ([facility])2022-08-04 07:48:37 Test Item Value Reference Range Interpretation Comments SARS-COV2/RT-PCR Negative Negative The SARS-Co V-2 target (test code = nucleic acids a re not [id number]) detected in thi s specimen. Negative result s do not preclude SARS-C oV-2 infection and s hould not be used as the freda e basis for patient managem ent decisions. Nega tive results must be combine d with clinical observ ations, patient history , and epidemiological information. A false negativ e result may occur if a spec imen is improperly maykel ected, transported or handled. This SARS CoV-2 test is a rapid, real-time RT-PC R test intended for th e qualitative detection of nu cleic acid from SARS-CoV-2 in a nasopharyngeal swab specimen collected from individuals suspected of CO VID-19 by their healthcar e provider. This test has been authorized by FDA under an EUA for use by authorized laboratories. This test is only authorized for the duration of the declaration that circumstances exist justifying the authorization of emergency use of in vitro diagnostic tests for detection and/or diagnosis of COVID-19 under Section 564(b)(1) of the Federal Food, Drug and Cosmetic Act, 21 U.S.C. 360bbb-3(b)(1), unless the authorization is terminated or revoked sooner. Fact Sheet for Healthcare Providers: https://www.[employer] m/Documents/Xpert%20Xpress%20SARS%20CoV-2/Fact%20Sheets/199-4718%54VYWT-BXV-9%20 HEALTHCARE%20PROVIDERS%20FACT%20SHEET.pdf Fact Sheet for Healthcare Patients: https://www.[employer]/Documents/Xpert%20Xp ress%20SARS%20CoV-2/Fact%20Sheets/3023801%53IASA-LYA-3%20PATIENT%20FACT%20SHEET .pdfBASI METABOLIC [id number] 06:35:48 Test Item Value Reference Range Interpretation Comments SODIUM (BEAKER) 139 meq/L 136-145 (test code = 381) POTASSIUM 3.7 meq/L 3.5-5.1 (BEAKER) (test code = 379) CHLORIDE (BEAKER) 110 meq/L 98-107 H (test code = 382) CO2 (BEAKER) 22 meq/L 22-29 (test code = 355) BLOOD UREA 22 mg/dL 7-21 H NITROGEN (BEAKER) (test code = 354) CREATININE 0.92 mg/dL 0.57-1.25 (BEAKER) (test code = 358) GLUCOSE RANDOM 90 mg/dL 70-105 (BEAKER) (test code = 652) CALCIUM (BEAKER) 8.8 mg/dL 8.4-10.2 (test code = 697) EGFR (BEAKER) 64 Interpretatio n of eGFR (test code = mL/min/1.73 values Stage De scription 1092) sq m Result G1 Ivonne l or high >=90 G2 Mildly decreased 60-89 G3a Mildl y to moderately 45-5 9 G3b Moderately to s everely 30-44 G4 Severl y decreased 15-29 G5 Kidney failure <15Reported eGF R is based on the CKD-EPI 2021 equation that d oes not use a race coefficientEsti mated GFR is not as accur ate as Creatinine Gissel thong in predicting glom erular filtration rate . Estimated GFR is not appl icable for dialysis patien ts Vitamin Manager ID - BSCBC W/PLT COUNT & AUTO [id number] 05:50:50 Test Item Value Reference Range Interpretation Comments WHITE BLOOD CELL COUNT (BEAKER) 7.8 K/ L 3.5-10.5 (test code = 775) RED BLOOD CELL COUNT (BEAKER) 5.11 M/ L 3.93-5.22 (test code = 761) HEMOGLOBIN (BEAKER) (test code = 14.6 GM/DL 11.2-15.7 410) HEMATOCRIT (BEAKER) (test code = 44.3 % 34.1-44.9 411) MEAN CORPUSCULAR VOLUME (BEAKER) 87 fL 79-95 (test code = 753) MEAN CORPUSCULAR HEMOGLOBIN 28.6 pg 25.6-32.2 (BEAKER) (test code = 751) MEAN CORPUSCULAR HEMOGLOBIN CONC 33.0 GM/DL 32.2-35.5 (BEAKER) (test code = 752) RED CELL DISTRIBUTION WIDTH 14.5 % 11.7-14.4 H (BEAKER) (test code = 412) PLATELET COUNT (BEAKER) (test 192 K/CU MM 150-450 code = 756) MEAN PLATELET VOLUME (BEAKER) 11.9 fL 9.4-12.3 (test code = 754) NUCLEATED RED BLOOD CELLS 0 /100 WBC 0-0 (BEAKER) (test code = 413) NEUTROPHILS RELATIVE PERCENT 57 % (BEAKER) (test code = 429) LYMPHOCYTES RELATIVE PERCENT 25 % (BEAKER) (test code = 430) MONOCYTES RELATIVE PERCENT 12 % (BEAKER) (test code = 431) EOSINOPHILS RELATIVE PERCENT 4 % (BEAKER) (test code = 432) BASOPHILS RELATIVE PERCENT 1 % (BEAKER) (test code = 437) NEUTROPHILS ABSOLUTE COUNT 4.41 K/ L 1.56-6.13 (BEAKER) (test code = 670) LYMPHOCYTES ABSOLUTE COUNT 1.97 K/ L 1.18-3.74 (BEAKER) (test code = 414) MONOCYTES ABSOLUTE COUNT (BEAKER) 0.94 K/ L 0.24-0.36 H (test code = 415) EOSINOPHILS ABSOLUTE COUNT 0.33 K/ L 0.04-0.36 (BEAKER) (test code = 416) BASOPHILS ABSOLUTE COUNT (BEAKER) 0.07 K/ L 0.01-0.08 (test code = 417) IMMATURE GRANULOCYTES-RELATIVE 0.40 % 0.00-1.00 PERCENT (BEAKER) (test code = 2801) POCT-GLUCOSE [id number] 23:46:06 Test Item Value Reference Range Interpretation Comments POC-GLUCOSE METER 118 mg/dL 70-110 H : TESTED A T [facility]20 (BEAKER) (test code = [facility], 1538) [address]: Vitamin Manager/Techni gallo ID = [id number] for JOSEPH CHANDLER POCT-GLUCOSE [id number] 17:53:56 Test Item Value Reference Range Interpretation Comments POC-GLUCOSE METER 143 mg/dL 70-110 H : TESTED A T [facility] 6720 (BEAKER) (test code = [facility], 1538) [address]: Vitamin Manager/Techni gallo ID = [id number] for [facility] R[facility] NADA POCT-GLUCOSE [id number] 13:16:28 Test Item Value Reference Range Interpretation Comments POC-GLUCOSE METER 99 mg/dL 70-110 : TESTED A T [facility] 6720 (BEAKER) (test code = [facility], 1538) [address]: Vitamin Manager/Techni gallo ID = [id number] for VAHE GOMES NADA POCT-GLUCOSE [id number] 09:49:44 Test Item Value Reference Range Interpretation Comments POC-GLUCOSE METER 120 mg/dL 70-110 H : TESTED A T [facility] 6720 (BEAKER) (test code = [facility], 1538) [address]: Vitamin Manager/Techni gallo ID = [id number] for ST RAYMOND, NADA BASIC METABOLIC [id number] 06:17:50 Test Item Value Reference Range Interpretation Comments SODIUM (BEAKER) 137 meq/L 136-145 (test code = 381) POTASSIUM 3.8 meq/L 3.5-5.1 Specimen slight ly (BEAKER) (test hemolyzed code = 379) CHLORIDE (BEAKER) 108 meq/L 98-107 H (test code = 382) CO2 (BEAKER) 20 meq/L 22-29 L (test code = 355) BLOOD UREA 21 mg/dL 7-21 NITROGEN (BEAKER) (test code = 354) CREATININE 0.90 mg/dL 0.57-1.25 Specimen slight ly (BEAKER) (test hemolyzed code = 358) GLUCOSE RANDOM 95 mg/dL 70-105 (BEAKER) (test code = 652) CALCIUM (BEAKER) 9.2 mg/dL 8.4-10.2 (test code = 697) EGFR (BEAKER) 65 Interpretatio n of eGFR (test code = mL/min/1.73 values Stage De scription 1092) sq m Result G1 Ivonne l or high >=90 G2 Mildly decreased 60-89 G3a Mildl y to moderately 45-5 9 G3b Moderately to s everely 30-44 G4 Severl y decreased 15-29 G5 Kidney failure <15Reported eGF R is based on the CKD-EPI 2020 equation that d oes not use a race coefficientEsti mated GFR is not as accur ate as Creatinine Gissel thong in predicting glom erular filtration rate . Estimated GFR is not appl icable for dialysis patien ts Vitamin Manager ID - BSCBC W/PLT COUNT & AUTO [id number] 06:04:24 Test Item Value Reference Range Interpretation Comments WHITE BLOOD CELL COUNT (BEAKER) 9.1 K/ L 3.5-10.5 (test code = 775) RED BLOOD CELL COUNT (BEAKER) 5.32 M/ L 3.93-5.22 H (test code = 761) HEMOGLOBIN (BEAKER) (test code = 15.0 GM/DL 11.2-15.7 410) HEMATOCRIT (BEAKER) (test code = 46.9 % 34.1-44.9 H 411) MEAN CORPUSCULAR VOLUME (BEAKER) 88 fL 79-95 (test code = 753) MEAN CORPUSCULAR HEMOGLOBIN 28.2 pg 25.6-32.2 (BEAKER) (test code = 751) MEAN CORPUSCULAR HEMOGLOBIN CONC 32.0 GM/DL 32.2-35.5 L (BEAKER) (test code = 752) RED CELL DISTRIBUTION WIDTH 14.6 % 11.7-14.4 H (BEAKER) (test code = 412) PLATELET COUNT (BEAKER) (test 181 K/CU MM 150-450 code = 756) MEAN PLATELET VOLUME (BEAKER) 11.5 fL 9.4-12.3 (test code = 754) NUCLEATED RED BLOOD CELLS 0 /100 WBC 0-0 (BEAKER) (test code = 413) NEUTROPHILS RELATIVE PERCENT 62 % (BEAKER) (test code = 429) LYMPHOCYTES RELATIVE PERCENT 21 % (BEAKER) (test code = 430) MONOCYTES RELATIVE PERCENT 13 % (BEAKER) (test code = 431) EOSINOPHILS RELATIVE PERCENT 4 % (BEAKER) (test code = 432) BASOPHILS RELATIVE PERCENT 1 % (BEAKER) (test code = 437) NEUTROPHILS ABSOLUTE COUNT 5.63 K/ L 1.56-6.13 (BEAKER) (test code = 670) LYMPHOCYTES ABSOLUTE COUNT 1.88 K/ L 1.18-3.74 (BEAKER) (test code = 414) MONOCYTES ABSOLUTE COUNT (BEAKER) 1.16 K/ L 0.24-0.36 H (test code = 415) EOSINOPHILS ABSOLUTE COUNT 0.36 K/ L 0.04-0.36 (BEAKER) (test code = 416) BASOPHILS ABSOLUTE COUNT (BEAKER) 0.06 K/ L 0.01-0.08 (test code = 417) IMMATURE GRANULOCYTES-RELATIVE 0.30 % 0.00-1.00 PERCENT (BEAKER) (test code = 2801) POCT-GLUCOSE [id number] 21:09:34 Test Item Value Reference Range Interpretation Comments POC-GLUCOSE METER 123 mg/dL 70-110 H : Notified RN/MD: ([facility]) (test code = TESTED AT [place] [address]) [facility], [address]: Vitamin Manager/Techni gallo ID = [id number] for Elia lockhart, Eneida POCT-GLUCOSE [id number] 16:57:51 Test Item Value Reference Range Interpretation Comments POC-GLUCOSE METER 124 mg/dL 70-110 H : TESTED A T [place] [address] ([facility]) (test code = [facility], 1538) [address]: Vitamin Manager/Techni gallo ID = [id number] for ANA MARIA HERNANDEZ CBC W/PLT COUNT & AUTO [id number] 05:57:46 Test Item Value Reference Range Interpretation Comments WHITE BLOOD CELL COUNT (BEAKER) 12.1 K/ L 3.5-10.5 H (test code = 775) RED BLOOD CELL COUNT (BEAKER) 5.55 M/ L 3.93-5.22 H (test code = 761) HEMOGLOBIN (BEAKER) (test code = 15.7 GM/DL 11.2-15.7 410) HEMATOCRIT (BEAKER) (test code = 48.0 % 34.1-44.9 H 411) MEAN CORPUSCULAR VOLUME (BEAKER) 87 fL 79-95 (test code = 753) MEAN CORPUSCULAR HEMOGLOBIN 28.3 pg 25.6-32.2 (BEAKER) (test code = 751) MEAN CORPUSCULAR HEMOGLOBIN CONC 32.7 GM/DL 32.2-35.5 (BEAKER) (test code = 752) RED CELL DISTRIBUTION WIDTH 14.5 % 11.7-14.4 H (BEAKER) (test code = 412) PLATELET COUNT (BEAKER) (test 201 K/CU MM 150-450 code = 756) MEAN PLATELET VOLUME (BEAKER) 11.8 fL 9.4-12.3 (test code = 754) NUCLEATED RED BLOOD CELLS 0 /100 WBC 0-0 (BEAKER) (test code = 413) NEUTROPHILS RELATIVE PERCENT 68 % (BEAKER) (test code = 429) LYMPHOCYTES RELATIVE PERCENT 17 % (BEAKER) (test code = 430) MONOCYTES RELATIVE PERCENT 11 % (BEAKER) (test code = 431) EOSINOPHILS RELATIVE PERCENT 2 % (BEAKER) (test code = 432) BASOPHILS RELATIVE PERCENT 0 % (BEAKER) (test code = 437) NEUTROPHILS ABSOLUTE COUNT 8.26 K/ L 1.56-6.13 H (BEAKER) (test code = 670) LYMPHOCYTES ABSOLUTE COUNT 2.11 K/ L 1.18-3.74 (BEAKER) (test code = 414) MONOCYTES ABSOLUTE COUNT (BEAKER) 1.35 K/ L 0.24-0.36 H (test code = 415) EOSINOPHILS ABSOLUTE COUNT 0.29 K/ L 0.04-0.36 (BEAKER) (test code = 416) BASOPHILS ABSOLUTE COUNT (BEAKER) 0.05 K/ L 0.01-0.08 (test code = 417) IMMATURE GRANULOCYTES-RELATIVE 0.30 % 0.00-1.00 PERCENT (BEAKER) (test code = 2801) [id number] 05:49:27 Test Item Value Reference Range Interpretation Comments MAGNESIUM (BEAKER) 1.9 mg/dL 1.6-2.6 Specimen slightly (test code = 627) hemolyzed Vitamin Manager ID - [id number] 05:49:27 Test Item Value Reference Range Interpretation Comments PHOSPHORUS (BEAKER) 3.5 mg/dL 2.3-4.7 Specimen slightly (test code = 604) hemolyzed Vitamin Manager ID - DBBASIC METABOLIC [id number] 05:49:27 Test Item Value Reference Range Interpretation Comments SODIUM (BEAKER) 141 meq/L 136-145 (test code = 381) POTASSIUM 3.6 meq/L 3.5-5.1 Specimen slight ly (BEAKER) (test hemolyzed code = 379) CHLORIDE (BEAKER) 110 meq/L 98-107 H (test code = 382) CO2 (BEAKER) 21 meq/L 22-29 L (test code = 355) BLOOD UREA 20 mg/dL 7-21 NITROGEN (BEAKER) (test code = 354) CREATININE 1.00 mg/dL 0.57-1.25 Specimen slight ly (BEAKER) (test hemolyzed code = 358) GLUCOSE RANDOM 102 mg/dL 70-105 (BEAKER) (test code = 652) CALCIUM (BEAKER) 9.3 mg/dL 8.4-10.2 (test code = 697) EGFR (BEAKER) 58 Interpretatio n of eGFR (test code = mL/min/1.73 values Stage De scription 1092) sq m Result G1 Ivonne l or high >=90 G2 Mildly decreased 60-89 G3a Mildl y to moderately 45-5 9 G3b Moderately to s everely 30-44 G4 Severl y decreased 15-29 G5 Kidne y failure <15Reported eGF R is based on the CKD-EPI 2020 equation that d oes not use a race coefficientEsti mated GFR is not as accur ate as Creatinine Gissel thong in predicting glom erular filtration rate . Estimated GFR is not appl icable for dialysis patien ts Vitamin Manager ID - DBCOMPREHENSIVE METABOLIC [id number] 15:06:55 Test Item Value Reference Range Interpretation Comments TOTAL PROTEIN 6.4 gm/dL 6.0-8.3 (BEAKER) (test code = 770) ALBUMIN (BEAKER) 3.6 g/dL 3.5-5.0 (test code = 1145) ALKALINE 76 U/L 40-150 PHOSPHATASE (BEAKER) (test code = 346) BILIRUBIN TOTAL 0.4 mg/dL 0.2-1.2 (BEAKER) (test code = 377) SODIUM (BEAKER) 143 meq/L 136-145 (test code = 381) POTASSIUM (BEAKER) 3.7 meq/L 3.5-5.1 (test code = 379) CHLORIDE (BEAKER) 109 meq/L 98-107 H (test code = 382) CO2 (BEAKER) (test 24 meq/L 22-29 code = 355) BLOOD UREA 18 mg/dL 7-21 NITROGEN (BEAKER) (test code = 354) CREATININE 1.09 mg/dL 0.57-1.25 (BEAKER) (test code = 358) GLUCOSE RANDOM 179 mg/dL 70-105 H (BEAKER) (test code = 652) CALCIUM (BEAKER) 9.2 mg/dL 8.4-10.2 (test code = 697) AST (SGOT) 20 U/L 5-34 (BEAKER) (test code = 353) ALT (SGPT) 14 U/L 6-55 (BEAKER) (test code = 347) EGFR (BEAKER) 52 Interpretatio n of eGFR (test code = 1092) mL/min/1.[address] age Description sq m Result G1 Ivonne l or high >=90 G2 Mildly decreased 60-89 G3a Mildl y to moderately 45-5 9 G3b Moderately to s everely 30-44 G4 Severl y decreased 15-29 G5 Kidney failure <15Reported eGF R is based on the CKD-EPI 202 equation that d oes not use a race coefficientEsti mated GFR is not as accur ate as Creatinine Gissel benito in predicting glom erular filtration rate . Estimated GFR is not appl icable for dialysis patien ts Vitamin Manager ID - MARCOOperator ID - [id number] 14:24:48 Test Item Value Reference Range Interpretation Comments PHOSPHORUS (BEAKER) (test code = 3.5 mg/dL 2.3-4.7 604) Vitamin Manager ID - MARCOC-REACTIVE [id number] 14:24:48 Test Item Value Reference Range Interpretation Comments C-REACTIVE PROTEIN (BEAKER) (test 0.10 mg/dL 0.00-0.50 code = 676) Vitamin Manager ID - [id number] 14:24:47 Test Item Value Reference Range Interpretation Comments MAGNESIUM (BEAKER) (test code = 1.9 mg/dL 1.6-2.6 627) Vitamin Manager ID - MARCOCALCIUM, [id number] 14:13:31 Test Item Value Reference Range Interpretation Comments CALCIUM IONIZED (BEAKER) (test code < mmol/L 1.12-1.27 LL = 698) PH, BLOOD (BEAKER) (test code = 7.22 1810) CBC W/PLT COUNT & AUTO [id number] 14:03:02 Test Item Value Reference Range Interpretation Comments WHITE BLOOD CELL COUNT (BEAKER) 9.1 K/ L 3.5-10.5 (test code = 775) RED BLOOD CELL COUNT (BEAKER) 5.39 M/ L 3.93-5.22 H (test code = 761) HEMOGLOBIN (BEAKER) (test code = 15.2 GM/DL 11.2-15.7 410) HEMATOCRIT (BEAKER) (test code = 46.1 % 34.1-44.9 H 411) MEAN CORPUSCULAR VOLUME (BEAKER) 86 fL 79-95 (test code = 753) MEAN CORPUSCULAR HEMOGLOBIN 28.2 pg 25.6-32.2 (BEAKER) (test code = 751) MEAN CORPUSCULAR HEMOGLOBIN CONC 33.0 GM/DL 32.2-35.5 (BEAKER) (test code = 752) RED CELL DISTRIBUTION WIDTH 14.5 % 11.7-14.4 H (BEAKER) (test code = 412) PLATELET COUNT (BEAKER) (test 192 K/CU MM 150-450 code = 756) MEAN PLATELET VOLUME (BEAKER) 11.4 fL 9.4-12.3 (test code = 754) NUCLEATED RED BLOOD CELLS 0 /100 WBC 0-0 (BEAKER) (test code = 413) NEUTROPHILS RELATIVE PERCENT 75 % (BEAKER) (test code = 429) LYMPHOCYTES RELATIVE PERCENT 14 % (BEAKER) (test code = 430) MONOCYTES RELATIVE PERCENT 9 % (BEAKER) (test code = 431) EOSINOPHILS RELATIVE PERCENT 2 % (BEAKER) (test code = 432) BASOPHILS RELATIVE PERCENT 0 % (BEAKER) (test code = 437) NEUTROPHILS ABSOLUTE COUNT 6.77 K/ L 1.56-6.13 H (BEAKER) (test code = 670) LYMPHOCYTES ABSOLUTE COUNT 1.28 K/ L 1.18-3.74 (BEAKER) (test code = 414) MONOCYTES ABSOLUTE COUNT (BEAKER) 0.82 K/ L 0.24-0.36 H (test code = 415) EOSINOPHILS ABSOLUTE COUNT 0.15 K/ L 0.04-0.36 (BEAKER) (test code = 416) BASOPHILS ABSOLUTE COUNT (BEAKER) 0.04 K/ L 0.01-0.08 (test code = 417) IMMATURE GRANULOCYTES-RELATIVE 0.30 % 0.00-1.00 PERCENT (BEAKER) (test code = 2801) URINALYSIS W/ [id number] 10:05:30 Test Item Value Reference Range Interpretation Comments COLOR (BEAKER) (test code Colorless = 470) CLARITY (BEAKER) (test Clear code = 469) SPECIFIC GRAVITY UA 1.009 1.001-1.035 (BEAKER) (test code = 468) PH UA (BEAKER) (test code 6.5 5.0-8.0 = 467) PROTEIN UA (BEAKER) (test Negative Negative code = 464) GLUCOSE UA (BEAKER) (test Negative Negative code = 365) KETONES UA (BEAKER) (test Negative Negative code = 371) BILIRUBIN UA (BEAKER) Negative Negative (test code = 462) BLOOD UA (BEAKER) (test Negative Negative code = 461) NITRITE UA (BEAKER) (test Negative Negative code = 465) LEUKOCYTE ESTERASE UA Large Negative A (BEAKER) (test code = 466) UROBILINOGEN UA (BEAKER) 0.2 0.2-1.0 (test code = 463) RBC UA (BEAKER) (test code 1 /HPF = 519) WBC UA (BEAKER) (test code 33 /HPF = 520) SQUAMOUS EPITHELIAL < /HPF (BEAKER) (test code = 516) SOURCE(BEAKER) (test code Urine, Clean Catch = 2795) Vitamin Manager ID - [auto]Vitamin Manager ID - techRAPID DRUG SCREEN, [id number] 08:22:24 Test Item Value Reference Range Interpretation Comments BARBITURATE URINE (BEAKER) (test Negative Negative code = 725) BENZODIAZEPINE SCREEN URINE (BEAKER) Negative Negative (test code = 726) COCAINE (METAB.) SCREEN (BEAKER) Negative Negative (test code = 1164) METHADONE SCREEN (BEAKER) (test code Negative Negative = 1436) OPIATE SCREEN URINE (BEAKER) (test Negative Negative code = 734) CANNABINOID SCREEN URINE (BEAKER) Negative Negative (test code = 727) AMPH/METHAMPH SCREEN (BEAKER) (test Negative Negative code = 1438) PHENCYCLIDINE SCREEN URINE (BEAKER) Negative Negative (test code = 608) PH UA (BEAKER) (test code = 467) 6.5 5.0-8.0 DRUG CUTOFF CONC.Cocaine 300 ng/mL Cannabinoid 50 ng/mLBenzodiazepine 200 ng/mLBarbiturate 200 ng/mLPhencyclidine 25 ng/mLOpiate 300 ng/mLMethadone 300 ng/mLAmphetamine/ 1000 ng/mL MethamphetamineThis assay provides an unconfirmed qualitative test result for the clinical management of patients in emergency situations. Chain of custody not maintained. Some zohu-wam-bsrmhpg medications, as well as adulterants, may cause inaccurate results. Clinical correlation should be applied. A more comprehensive drug screen or confirmation of a detected drug may be performed upon request.Vitamin Manager ID - DBPROTEIN, RANDOM [id number] 07:36:45 Test Item Value Reference Range Interpretation Comments PROTEIN, URINE (BEAKER) (test code = < mg/dL 0-14 1569) Vitamin Manager ID - DBSODIUM, RANDOM [id number] 07:19:12 Test Item Value Reference Range Interpretation Comments SODIUM URINE (BEAKER) (test code = 111 meq/L 243) Reference Range: No NormalsOperator ID - [id number] 03:33:37 Test Item Value Reference Range Interpretation Comments PHOSPHORUS (BEAKER) (test code = 3.4 mg/dL 2.3-4.7 604) Vitamin Manager ID - DEVYN WCREATINE KINASE (CK)2022-07-31 03:33:37 Test Item Value Reference Range Interpretation Comments CREATINE KINASE TOTAL (BEAKER) (test 217 U/L 29-200 H code = 380) Vitamin Manager ID - DEVYN WC-REACTIVE [id number] 03:33:37 Test Item Value Reference Range Interpretation Comments C-REACTIVE PROTEIN (BEAKER) (test 0.19 mg/dL 0.00-0.50 code = 676) Vitamin Manager ID - DEVYN WCOMPREHENSIVE METABOLIC [id number] 03:33:36 Test Item Value Reference Range Interpretation Comments TOTAL PROTEIN 6.8 gm/dL 6.0-8.3 (BEAKER) (test code = 770) ALBUMIN (BEAKER) 3.9 g/dL 3.5-5.0 (test code = 1145) ALKALINE 70 U/L 40-150 PHOSPHATASE (BEAKER) (test code = 346) BILIRUBIN TOTAL 0.9 mg/dL 0.2-1.2 (BEAKER) (test code = 377) SODIUM (BEAKER) 142 meq/L 136-145 (test code = 381) POTASSIUM (BEAKER) 3.7 meq/L 3.5-5.1 (test code = 379) CHLORIDE (BEAKER) 110 meq/L 98-107 H (test code = 382) CO2 (BEAKER) (test 21 meq/L 22-29 L code = 355) BLOOD UREA 33 mg/dL 7-21 H NITROGEN (BEAKER) (test code = 354) CREATININE 1.21 mg/dL 0.57-1.25 (BEAKER) (test code = 358) GLUCOSE RANDOM 107 mg/dL 70-105 H (BEAKER) (test code = 652) CALCIUM (BEAKER) 9.5 mg/dL 8.4-10.2 (test code = 697) AST (SGOT) 20 U/L 5-34 (BEAKER) (test code = 353) ALT (SGPT) 12 U/L 6-55 (BEAKER) (test code = 347) EGFR (BEAKER) 46 Interpretati on of eGFR (test code = 1092) mL/min/1.[address] age Description sq m Result G1 Ivonne l or high >=90 G2 Mildly decreased 60-89 G3a Mildl y to moderately 45-5 9 G3b Moderately to s everely 30-44 G4 Severl y decreased 15-29 G5 Kidney failure <15Reported eGF R is based on the CKD-EPI 2021 equation that d oes not use a race coefficientEsti mated GFR is not as accur ate as Creatinine Gissel benito in predicting glom erular filtration rate . Estimated GFR is not appl icable for dialysis patien ts Vitamin Manager ID - DEVYN [id number] 03:33:36 Test Item Value Reference Range Interpretation Comments MAGNESIUM (BEAKER) (test code = 2.1 mg/dL 1.6-2.6 627) Vitamin Manager ID - DEVYN WCALCIUM, [id number] 03:18:32 Test Item Value Reference Range Interpretation Comments CALCIUM IONIZED (BEAKER) (test 1.18 mmol/L 1.12-1.27 code = 698) PH, BLOOD (BEAKER) (test code = 7.40 1810) CBC W/PLT COUNT & AUTO [id number] 03:15:51 Test Item Value Reference Range Interpretation Comments WHITE BLOOD CELL COUNT (BEAKER) 9.4 K/ L 3.5-10.5 (test code = 775) RED BLOOD CELL COUNT (BEAKER) 5.37 M/ L 3.93-5.22 H (test code = 761) HEMOGLOBIN (BEAKER) (test code = 15.6 GM/DL 11.2-15.7 410) HEMATOCRIT (BEAKER) (test code = 47.1 % 34.1-44.9 H 411) MEAN CORPUSCULAR VOLUME (BEAKER) 88 fL 79-95 (test code = 753) MEAN CORPUSCULAR HEMOGLOBIN 29.1 pg 25.6-32.2 (BEAKER) (test code = 751) MEAN CORPUSCULAR HEMOGLOBIN CONC 33.1 GM/DL 32.2-35.5 (BEAKER) (test code = 752) RED CELL DISTRIBUTION WIDTH 14.6 % 11.7-14.4 H (BEAKER) (test code = 412) PLATELET COUNT (BEAKER) (test 176 K/CU MM 150-450 code = 756) MEAN PLATELET VOLUME (BEAKER) 11.8 fL 9.4-12.3 (test code = 754) NUCLEATED RED BLOOD CELLS 0 /100 WBC 0-0 (BEAKER) (test code = 413) NEUTROPHILS RELATIVE PERCENT 59 % (BEAKER) (test code = 429) LYMPHOCYTES RELATIVE PERCENT 26 % (BEAKER) (test code = 430) MONOCYTES RELATIVE PERCENT 12 % (BEAKER) (test code = 431) EOSINOPHILS RELATIVE PERCENT 3 % (BEAKER) (test code = 432) BASOPHILS RELATIVE PERCENT 1 % (BEAKER) (test code = 437) NEUTROPHILS ABSOLUTE COUNT 5.53 K/ L 1.56-6.13 (BEAKER) (test code = 670) LYMPHOCYTES ABSOLUTE COUNT 2.48 K/ L 1.18-3.74 (BEAKER) (test code = 414) MONOCYTES ABSOLUTE COUNT (BEAKER) 1.10 K/ L 0.24-0.36 H (test code = 415) EOSINOPHILS ABSOLUTE COUNT 0.24 K/ L 0.04-0.36 (BEAKER) (test code = 416) BASOPHILS ABSOLUTE COUNT (BEAKER) 0.07 K/ L 0.01-0.08 (test code = 417) IMMATURE GRANULOCYTES-RELATIVE 0.20 % 0.00-1.00 PERCENT (BEAKER) (test code = 2801) U/S, RENAL, [id number] 02:11:00Reason for exam:->Acute kidney injury and polycythemiaM[facility] : 1945 Sex: FFINAL REPORT TECHNIQUE: Grayscale ultrasound of the kidneys and bladder with Dopplerand spectral analysis. INDICATION: Acute kidney injury and polycythemia. COMPARISON: None. FINDINGS:RIGHT KIDNEY: The right kidney is 9.3 x 5.2 x 5.4 cm. Cortical thickness is 1.5 cm. No solid mass lesions. No hydronephrosis. Renal artery and vein are patent. LEFT KIDNEY: The left kidney is 6.6 x 3.8x 4.7 cm. Cortical thickness is 1.1 cm. No solid mass lesions. No hydronephrosis. Renal artery and vein are patent. BLADDER: Unremarkable. IMPRESSION:No acute abnormality. No hydronephrosis. The left kidney is small in length. The right kidney is normal in size. Signed: Jan Leeeport Verified Date/Time: 07/31/2022 02:11:10 RAPID DRUG SCREEN, [id number] 15:03:49 Test Item Value Reference Range Interpretation Comments BARBITURATE URINE (BEAKER) (test Negative Negative code = 725) BENZODIAZEPINE SCREEN URINE (BEAKER) Negative Negative (test code = 726) COCAINE (METAB.) SCREEN (BEAKER) Negative Negative (test code = 1164) METHADONE SCREEN (BEAKER) (test code Negative Negative = 1436) OPIATE SCREEN URINE (BEAKER) (test Negative Negative code = 734) CANNABINOID SCREEN URINE (BEAKER) Negative Negative (test code = 727) AMPH/METHAMPH SCREEN (BEAKER) (test Negative Negative code = 1438) PHENCYCLIDINE SCREEN URINE (BEAKER) Negative Negative (test code = 608) PH UA (BEAKER) (test code = 467) 5.5 5.0-8.0 DRUG CUTOFF CONC.Cocaine 300 ng/mL Cannabinoid 50 ng/mLBenzodiazepine 200 ng/mLBarbiturate 200 ng/mLPhencyclidine 25 ng/mLOpiate 300 ng/mLMethadone 300 ng/mLAmphetamine/ 1000 ng/mL MethamphetamineThisassay provides an unconfirmed qualitative test result for the clinical management of patients in emergency situations. Chain of custody not maintained. Some eozw-nbw-tplkdnk medications, as well as adulterants, may cause inaccurate results. Clinical correlation should be applied. A more comprehensive drug screen or confirmation of a detected drug may be performed upon request.Vitamin Manager ID - [auto]Vitamin Manager ID - RM CREATININE, RANDOM [id number] 12:48:14 Test Item Value Reference Range Interpretation Comments CREATININE URINE (BEAKER) (test 261.6 mg/dL code = 375) Reference Range: No NormalsOperator ID - RMPROTEIN, RANDOM [id number] 12:45:37 Test Item Value Reference Range Interpretation Comments PROTEIN, URINE (BEAKER) (test code = 80 mg/dL 0-14 H 1569) Vitamin Manager ID - RMSODIUM, RANDOM [id number] 12:45:37 Test Item Value Reference Range Interpretation Comments SODIUM URINE (BEAKER) (test code = 62 meq/L 243) Reference Range: No NormalsOperator ID - [id number] 04:35:29 Test Item Value Reference Range Interpretation Comments PHOSPHORUS (BEAKER) (test code = 4.1 mg/dL 2.3-4.7 604) Vitamin Manager ID - SABINA GC-REACTIVE [id number] 04:35:29 Test Item Value Reference Range Interpretation Comments C-REACTIVE PROTEIN (BEAKER) (test 0.29 mg/dL 0.00-0.50 code = 676) Vitamin Manager ID - SABINA GBASIC METABOLIC [id number] 04:35:28 Test Item Value Reference Range Interpretation Comments SODIUM (BEAKER) 142 meq/L 136-145 (test code = 381) POTASSIUM 3.8 meq/L 3.5-5.1 (BEAKER) (test code = 379) CHLORIDE (BEAKER) 107 meq/L 98-107 (test code = 382) CO2 (BEAKER) 22 meq/L 22-29 (test code = 355) BLOOD UREA 29 mg/dL 7-21 H NITROGEN (BEAKER) (test code = 354) CREATININE 1.65 mg/dL 0.57-1.25 H (BEAKER) (test code = 358) GLUCOSE RANDOM 101 mg/dL 70-105 (BEAKER) (test code = 652) CALCIUM (BEAKER) 9.9 mg/dL 8.4-10.2 (test code = 697) EGFR (BEAKER) 32 Interpretatio n of eGFR (test code = mL/min/1.73 values Stage De scription 1092) sq m Result G1 Ivonne l or high >=90 G2 Mildly decreased 60-89 G3a Mildl y to moderately 45-5 9 G3b Moderately to s everely 30-44 G4 Severl y decreased 15-29 G5 Kidney failure <15Reported eGF R is based on the CKD-EPI 1 equation that d oes not use a race coefficientEsti mated GFR is not as accur ate as Creatinine Gissel thong in predicting glom erular filtration rate . Estimated GFR is not appl icable for dialysis patien ts Vitamin Manager ID - SABINA [id number] 04:35:28 Test Item Value Reference Range Interpretation Comments MAGNESIUM (BEAKER) (test code = 2.1 mg/dL 1.6-2.6 627) Vitamin Manager ID - SABINA GCBC W/PLT COUNT & AUTO [id number] 04:08:53 Test Item Value Reference Range Interpretation Comments WHITE BLOOD CELL COUNT (BEAKER) 11.7 K/ L 3.5-10.5 H (test code = 775) RED BLOOD CELL COUNT (BEAKER) 6.12 M/ L 3.93-5.22 H (test code = 761) HEMOGLOBIN (BEAKER) (test code = 17.4 GM/DL 11.2-15.7 H 410) HEMATOCRIT (BEAKER) (test code = 52.7 % 34.1-44.9 H 411) MEAN CORPUSCULAR VOLUME (BEAKER) 86 fL 79-95 (test code = 753) MEAN CORPUSCULAR HEMOGLOBIN 28.4 pg 25.6-32.2 (BEAKER) (test code = 751) MEAN CORPUSCULAR HEMOGLOBIN CONC 33.0 GM/DL 32.2-35.5 (BEAKER) (test code = 752) RED CELL DISTRIBUTION WIDTH 14.7 % 11.7-14.4 H (BEAKER) (test code = 412) PLATELET COUNT (BEAKER) (test 207 K/CU MM 150-450 code = 756) MEAN PLATELET VOLUME (BEAKER) 11.2 fL 9.4-12.3 (test code = 754) NUCLEATED RED BLOOD CELLS 0 /100 WBC 0-0 (BEAKER) (test code = 413) NEUTROPHILS RELATIVE PERCENT 66 % (BEAKER) (test code = 429) LYMPHOCYTES RELATIVE PERCENT 19 % (BEAKER) (test code = 430) MONOCYTES RELATIVE PERCENT 12 % (BEAKER) (test code = 431) EOSINOPHILS RELATIVE PERCENT 1 % (BEAKER) (test code = 432) BASOPHILS RELATIVE PERCENT 1 % (BEAKER) (test code = 437) NEUTROPHILS ABSOLUTE COUNT 7.73 K/ L 1.56-6.13 H (BEAKER) (test code = 670) LYMPHOCYTES ABSOLUTE COUNT 2.25 K/ L 1.18-3.74 (BEAKER) (test code = 414) MONOCYTES ABSOLUTE COUNT (BEAKER) 1.40 K/ L 0.24-0.36 H (test code = 415) EOSINOPHILS ABSOLUTE COUNT 0.16 K/ L 0.04-0.36 (BEAKER) (test code = 416) BASOPHILS ABSOLUTE COUNT (BEAKER) 0.07 K/ L 0.01-0.08 (test code = 417) IMMATURE GRANULOCYTES-RELATIVE 0.30 % 0.00-1.00 PERCENT (BEAKER) (test code = 2801) C-REACTIVE [id number] 04:12:46 Test Item Value Reference Range Interpretation Comments C-REACTIVE PROTEIN (BEAKER) (test 0.21 mg/dL 0.00-0.50 code = 676) Vitamin Manager ID - BSBASIC METABOLIC [id number] 04:12:45 Test Item Value Reference Range Interpretation Comments SODIUM (BEAKER) 139 meq/L 136-145 (test code = 381) POTASSIUM 3.4 meq/L 3.5-5.1 L (BEAKER) (test code = 379) CHLORIDE (BEAKER) 106 meq/L 98-107 (test code = 382) CO2 (BEAKER) 21 meq/L 22-29 L (test code = 355) BLOOD UREA 10 mg/dL 7-21 NITROGEN (BEAKER) (test code = 354) CREATININE 0.84 mg/dL 0.57-1.25 (BEAKER) (test code = 358) GLUCOSE RANDOM 148 mg/dL 70-105 H (BEAKER) (test code = 652) CALCIUM (BEAKER) 10.4 mg/dL 8.4-10.2 H (test code = 697) EGFR (BEAKER) 71 Interpretatio n of eGFR (test code = mL/min/1.73 values Stage De scription 1092) sq m Result G1 Ivonne l or high >=90 G2 Mildly decreased 60-89 G3a Mildl y to moderately 45-5 9 G3b Moderately to s everely 30-44 G4 Severl y decreased 15-29 G5 Kidney failure <15Reported eGF R is based on the CKD-EPI 2021 equation that d oes not use a race coefficientEsti mated GFR is not as accur ate as Creatinine Gissel benito in predicting glom erular filtration rate . Estimated GFR is not appl icable for dialysis patien ts Vitamin Manager ID - [id number] 04:12:45 Test Item Value Reference Range Interpretation Comments MAGNESIUM (BEAKER) (test code = 2.1 mg/dL 1.6-2.6 627) Vitamin Manager ID - [id number] 04:12:45 Test Item Value Reference Range Interpretation Comments PHOSPHORUS (BEAKER) (test code = 2.9 mg/dL 2.3-4.7 604) Vitamin Manager ID - BSCBC W/PLT COUNT & AUTO [id number] 04:00:48 Test Item Value Reference Range Interpretation Comments WHITE BLOOD CELL COUNT 11.5 K/ L 3.5-10.5 H (BEAKER) (test code = 775) RED BLOOD CELL COUNT 6.53 M/ L 3.93-5.22 H (BEAKER) (test code = 761) HEMOGLOBIN (BEAKER) 18.4 GM/DL 11.2-15.7 H (test code = 410) HEMATOCRIT (BEAKER) 54.4 % 34.1-44.9 H (test code = 411) MEAN CORPUSCULAR 83 fL 79-95 Discordant results VOLUME (BEAKER) (test compar ed to previous code = 753) results; clinic al correlation req uired MEAN CORPUSCULAR 28.2 pg 25.6-32.2 HEMOGLOBIN (BEAKER) (test code = 751) MEAN CORPUSCULAR 33.8 GM/DL 32.2-35.5 HEMOGLOBIN CONC (BEAKER) (test code = 752) RED CELL DISTRIBUTION 14.3 % 11.7-14.4 WIDTH (BEAKER) (test code = 412) PLATELET COUNT 218 K/CU MM 150-450 (BEAKER) (test code = 756) MEAN PLATELET VOLUME 10.8 fL 9.4-12.3 (BEAKER) (test code = 754) NUCLEATED RED BLOOD 0 /100 WBC 0-0 CELLS (BEAKER) (test code = 413) NEUTROPHILS RELATIVE 75 % PERCENT (BEAKER) (test code = 429) LYMPHOCYTES RELATIVE 15 % PERCENT (BEAKER) (test code = 430) MONOCYTES RELATIVE 9 % PERCENT (BEAKER) (test code = 431) EOSINOPHILS RELATIVE 1 % PERCENT (BEAKER) (test code = 432) BASOPHILS RELATIVE 1 % PERCENT (BEAKER) (test code = 437) NEUTROPHILS ABSOLUTE 8.61 K/ L 1.56-6.13 H COUNT (BEAKER) (test code = 670) LYMPHOCYTES ABSOLUTE 1.66 K/ L 1.18-3.74 COUNT (BEAKER) (test code = 414) MONOCYTES ABSOLUTE 1.00 K/ L 0.24-0.36 H COUNT (BEAKER) (test code = 415) EOSINOPHILS ABSOLUTE 0.08 K/ L 0.04-0.36 COUNT (BEAKER) (test code = 416) BASOPHILS ABSOLUTE 0.08 K/ L 0.01-0.08 COUNT (MITCH) (test code = 417) IMMATURE 0.30 % 0.00-1.00 GRANULOCYTES-RELATIVE PERCENT (MITCH) (test code = 2801) HEMOGLOBIN [id number] 12:28:47 Test Item Value Reference Range Interpretation Comments HEMOGLOBIN A1C 6.0 % See_Comment H [Automated m essage] ELECTROPHORESIS (MITCH) The system which (test code = 3811) generated this result transmitted ref erence range: <=5.6%. The reference range was not used to int erpret this result as normal/abnormal . "The A1c is measured using a NGSP-certified method. HbA1c value equal to or greater than 6.5% as thediagnosis cutoff for diabetes. An HbA1c value of 5.7- 6.4% indicates increased risk for diabetes (prediabetes)."Vitamin Manager ID - ADMOperator ID - ADMRAD, CHEST, 1 VIEW, NON [id number] 10:18:00Reason for exam:->strokeShould this be performed at the bedside?->Yes [facility] : 1945 Sex: FFINAL REPORT RAD, CHEST, 1 VIEW, NON DEPT INDICATION: stroke COMPARISON: None FINDINGS: Portable frontal view of the chest. IMPRESSION: Support Lines: None Lungs and pleura: Minimal bandlike and left lung base with blunted left costophrenic angle possibly atelectasis with pleural thickening or small effusion. Remainder lungs clear. No pneumothorax.Heart and mediastinum: Unremarkable for AP technique. Additional findings: Intact osseous structures. Signed: Carlos Mays MDReport Verified Date/Time: 07/28/2022 10:18:48 Electronically signed by: CARLOS MAYS MD on 310:18 AM SARS-COV2/RT-PCR ([facility])2022-07-28 09:25:50 Test Item Value Reference Range Interpretation Comments SARS-COV2/RT-PCR Positive Negative AA The SARS-Co V-2 target (test code = nucleic acids a re detected [id number]) in this specime n. The presence SARS-C oV-2 nucleic acids cannot ru le out co-infections o r disease caused by other viral or bacterial patho gens. As with any molecular t est, mutations withi n the target regions of the Xpert Xpress SARS-CoV-2 test could affect primer and/or p robe binding resulting in fa ilure to detect the pres ence of virus or the virus be ing detected less predictabl y. False negative result s may occur if virus is pre sent at levels below th e analytical limit of detect ion. This SARS CoV-2 test is a rapid, real-time RT-PC R test intended for e qualitative detection of nu cleic acid from SARS-CoV-2 in a nasopharyngeal swab specimen collected from individuals suspected of CO VID-19 by their healthcar e provider. Results from e Xpert Xpress SARS-CoV -2 test should be corre lated with the clinical hi story, epidemiological data, and other data avai lable to the clinician evalu ating the patient. Viral nucleic acid may persist in vivo, independent of virus viability. Dete ction of analyte target( s) does not imply that the corresponding virus(es) are i nfectious or are the causati ve agents for clinical sympto ms. This test has been authorized by FDA under an EUA for use by authorized laboratories. This test is only authorized for the duration of the declaration that circumstances exist justifying the authorization of emergency use of in vitro diagnostic tests for detection and/or diagnosis of COVID-19 under Section 564(b)(1) of the Federal Food, Drug and Cosmetic Act, 21 U.S.C. 360bbb-3(b)(1), unless the authorization is terminated or revoked sooner. Fact Sheet for Healthcare Providers: https://www.cepRiskalyzeid.co m/Documents/Xpert%20Xpress%20SARS%20CoV-2/Fact%20Sheets/302-3802%55HBOM-XMG-1%20 HEALTHCARE%20PROVIDERS%20FACT%20SHEET.pdf Fact Sheet for Healthcare Patients: https://www.[employer]/Documents/Xpert%20Xp ress%20SARS%20CoV-2/Fact%20Sheets/302-3801%55OPSO-NIK-5%20PATIENT%20FACT%20SHEET .pdfVITAMIN [id number] 03:07:51 Test Item Value Reference Range Interpretation Comments VITAMIN B12 (LanyrdAKER) (test code = 264 pg/mL 213-816 774) Vitamin Manager ID - BRIDGETOTSH/FREE T4 IF [id number] 03:07:51 Test Item Value Reference Range Interpretation Comments THYROID STIMULATING HORMONE 3.021 uIU/mL 0.350-4.940 (LanyrdAKER) (test code = 772) Vitamin Manager ID - MALACHIIGH SENSITIVITY TROPONIN [id number] 02:46:27 Test Item Value Reference Range Interpretation Comments HIGH SENSITIVITY TROPONIN I (test 13 pg/ml <=17 code = 8710784) Vitamin Manager ID - Alli AGRICULTURAL RESEARCHER STAT High Sensitivity Troponin-I results should be used in conjunction with other diagnostic information such as ECG, clinical observations and information, and patientsymptoms to aid in the diagnosis of MS. B-TYPE NATRIURETIC FACTOR (BNP)2022-07-28 02:45:47 Test Item Value Reference Range Interpretation Comments B-TYPE NATRIURETIC PEPTIDE (BEAKER) 60 pg/mL 0-100 (test code = 700) Vitamin Manager ID - MARCOLIPID [id number] 02:42:51 Test Item Value Reference Range Interpretation Comments TRIGLYCERIDES (BEAKER) (test code = 178 mg/dL 540) CHOLESTEROL (BEAKER) (test code = 233 mg/dL 631) HDL CHOLESTEROL (BEAKER) (test code 47 mg/dL = 976) LDL CHOLESTEROL CALCULATED (LanyrdAKER) 150 mg/dL (test code = 633) Triglyceride Reference Range: Low Risk <150 Borderline 150-199 High Risk 200- 499 Very High Risk >=500Cholesterol Reference Range: Low Risk <200 Borderline 200-239 High Risk >240HDL Cholesterol Reference Range: Low Risk >=60 High Risk <40LDL Cholesterol Reference Range: Optimal <100 Near Optimal 100-129 Borderline 130-159 High 160-189 Very High >=190 Vitamin Manager ID - BSCOMPREHENSIVE METABOLIC [id number] 02:42:50 Test Item Value Reference Range Interpretation Comments TOTAL PROTEIN 7.5 gm/dL 6.0-8.3 (BEAKER) (test code = 770) ALBUMIN (BEAKER) 4.3 g/dL 3.5-5.0 (test code = 1145) ALKALINE 75 U/L 40-150 PHOSPHATASE (BEAKER) (test code = 346) BILIRUBIN TOTAL 0.8 mg/dL 0.2-1.2 (BEAKER) (test code = 377) SODIUM (BEAKER) 140 meq/L 136-145 (test code = 381) POTASSIUM (BEAKER) 3.2 meq/L 3.5-5.1 L (test code = 379) CHLORIDE (BEAKER) 107 meq/L 98-107 (test code = 382) CO2 (BEAKER) (test 21 meq/L 22-29 L code = 355) BLOOD UREA 13 mg/dL 7-21 NITROGEN (BEAKER) (test code = 354) CREATININE 0.85 mg/dL 0.57-1.25 (BEAKER) (test code = 358) GLUCOSE RANDOM 114 mg/dL 70-105 H (BEAKER) (test code = 652) CALCIUM (BEAKER) 9.5 mg/dL 8.4-10.2 (test code = 697) AST (SGOT) 17 U/L 5-34 (BEAKER) (test code = 353) ALT (SGPT) 10 U/L 6-55 (BEAKER) (test code = 347) EGFR (BEAKER) 70 Interpretatio n of eGFR (test code = 1092) mL/min/1.[address] age Description sq m Result G1 Ivonne l or high >=90 G2 Mildly decreased 60-89 G3a Mildl y to moderately 45-5 9 G3b Moderately to s everely 30-44 G4 Severl y decreased 15-29 G5 Kidney failure <15Reported eGF R is based on the CKD-EPI 2020 equation that d oes not use a race coefficientEsti mated GFR is not as accur ate as Creatinine Gissel benito in predicting glom erular filtration rate . Estimated GFR is not appl icable for dialysis patien ts Vitamin Manager ID - [id number] 02:42:50 Test Item Value Reference Range Interpretation Comments MAGNESIUM (BEAKER) (test code = 2.0 mg/dL 1.6-2.6 627) Vitamin Manager ID - [id number] 02:42:50 Test Item Value Reference Range Interpretation Comments PHOSPHORUS (BEAKER) (test code = 3.2 mg/dL 2.3-4.7 604) Vitamin Manager ID - [id number] 02:28:06 Test Item Value Reference Range Interpretation Comments PARTIAL THROMBOPLASTIN TIME 24.5 seconds 22.5-36.0 (BEAKER) (test code = 760) PROTHROMBIN TIME/[id number] 02:27:24 Test Item Value Reference Range Interpretation Comments PROTIME (BEAKER) (test code = 14.0 seconds 11.9-14.2 759) INR (BEAKER) (test code = 370) 1.15 <=5.90 RECOMMENDED COUMADIN/WARFARIN INR THERAPY RANGESSTANDARD DOSE: 2.0 - 3.0 Includes: PROPHYLAXIS for venous thrombosis, systemic embolization; TREATMENT for venous thrombosis and/or pulmonary embolus.HIGH RISK: Target INR is 2.5-3.5 for patients with mechanical heart valves.CBC W/PLT COUNT & AUTO [id number] 02:13:23 Test Item Value Reference Range Interpretation Comments WHITE BLOOD CELL COUNT (BEAKER) 10.2 K/ L 3.5-10.5 (test code = 775) RED BLOOD CELL COUNT (BEAKER) 5.54 M/ L 3.93-5.22 H (test code = 761) HEMOGLOBIN (BEAKER) (test code = 15.9 GM/DL 11.2-15.7 H 410) HEMATOCRIT (BEAKER) (test code = 48.6 % 34.1-44.9 H 411) MEAN CORPUSCULAR VOLUME (BEAKER) 88 fL 79-95 (test code = 753) MEAN CORPUSCULAR HEMOGLOBIN 28.7 pg 25.6-32.2 (BEAKER) (test code = 751) MEAN CORPUSCULAR HEMOGLOBIN CONC 32.7 GM/DL 32.2-35.5 (BEAKER) (test code = 752) RED CELL DISTRIBUTION WIDTH 14.4 % 11.7-14.4 (BEAKER) (test code = 412) PLATELET COUNT (BEAKER) (test 190 K/CU MM 150-450 code = 756) MEAN PLATELET VOLUME (BEAKER) 11.5 fL 9.4-12.3 (test code = 754) NUCLEATED RED BLOOD CELLS 0 /100 WBC 0-0 (BEAKER) (test code = 413) NEUTROPHILS RELATIVE PERCENT 69 % (BEAKER) (test code = 429) LYMPHOCYTES RELATIVE PERCENT 19 % (BEAKER) (test code = 430) MONOCYTES RELATIVE PERCENT 10 % (BEAKER) (test code = 431) EOSINOPHILS RELATIVE PERCENT 1 % (BEAKER) (test code = 432) BASOPHILS RELATIVE PERCENT 1 % (BEAKER) (test code = 437) NEUTROPHILS ABSOLUTE COUNT 7.04 K/ L 1.56-6.13 H (BEAKER) (test code = 670) LYMPHOCYTES ABSOLUTE COUNT 1.88 K/ L 1.18-3.74 (BEAKER) (test code = 414) MONOCYTES ABSOLUTE COUNT (BEAKER) 1.03 K/ L 0.24-0.36 H (test code = 415) EOSINOPHILS ABSOLUTE COUNT 0.12 K/ L 0.04-0.36 (BEAKER) (test code = 416) BASOPHILS ABSOLUTE COUNT (BEAKER) 0.06 K/ L 0.01-0.08 (test code = 417) IMMATURE GRANULOCYTES-RELATIVE 0.20 % 0.00-1.00 PERCENT (BEAKER) (test code = 2801) Lipid Panel w/ Chol/HDL [id number] 00:00:00 Test Item Value Reference Range Interpretation Comments Cholesterol, Total (test code = 2093-3) 184 100-199 Triglycerides (test code = 2571-8) 123 0-149 HDL Cholesterol (test code = 2085-9) 50 >39 T. Chol/HDL Ratio (test code = 9830-1) 3.7 0.0-4.4 Microalbumin/Creat Ratio, Random [id number] 00:00:00 Test Item Value Reference Range Interpretation Comments Creatinine, Urine (test code = 2161-8) 152.9 Not Estab. Albumin, Urine (test code = 29647-0) 713.7 Not Estab. Alb/Creat Ratio (test code = 41607-1) 467 0-29 Hemoglobin [id number] 00:00:00 Test Item Value Reference Range Interpretation Comments Hemoglobin A1c (test code = 4548-4) 5.7 4.8-5.6 Comp. Metabolic Panel (14) ([facility])2020-12-06 00:00:00 Test Item Value Reference Range Interpretation Comments Glucose (test code = 2345-7) 90 65-99 BUN (test code = 3094-0) 18 8-27 Creatinine (test code = 2160-0) 0.88 0.57-1.00 eGFR If NonAfricn Am (test code = 64 >59 34661-0) eGFR If Africn Am (test code = 96562-0) 74 >59 BUN/Creatinine Ratio (test code = 04-19 3097-3) Sodium (test code = 2951-2) 145 134-144 Potassium (test code = 2823-3) 4.2 3.5-5.2 Chloride (test code = 2075-0) 108 96-106 Carbon Dioxide, Total (test code = 2027-) Calcium (test code = 20873-8) 9.6 8.7-10.3 Protein, Total (test code = 2885-2) 6.8 6.0-8.5 Albumin (test code = 1751-7) 4.3 3.7-4.7 Globulin, Total (test code = 15865-7) 2.5 1.5-4.5 A/G Ratio (test code = 1759-0) 1.7 1.2-2.2 Bilirubin, Total (test code = 1974-2) 0.6 0.0-1.2 Alkaline Phosphatase (test code = 75 48-121 6768-6) AST (SGOT) (test code = 1920-8) 21 0-40 ALT (SGPT) (test code = 1742-6) 15 0-32 CBC With Differential/[id number] 00:00:00 Test Item Value Reference Range Interpretation Comments WBC (test code = 6690-2) 6.5 3.4-10.8 RBC (test code = 789-8) 5.06 3.77-5.28 Hemoglobin (test code = 718-7) 14.5 11.1-15.9 Hematocrit (test code = 4544-3) 44.4 34.0-46.6 MCV (test code = 787-2) 88 79-97 MCH (test code = 785-6) 28.7 26.6-33.0 MCHC (test code = 786-4) 32.7 31.5-35.7 RDW (test code = 788-0) 13.1 11.7-15.4 Platelets (test code = 777-3) 211 150-450 Neutrophils (test code = 770-8) 54 Not Estab. Lymphs (test code = 736-9) 31 Not Estab. Monocytes (test code = 5905-5) 12 Not Estab. Eos (test code = 713-8) 2 Not Estab. Basos (test code = 706-2) 1 Not Estab. Immature Cells (test code = UNLOINC) Neutrophils (Absolute) (test code = 3.6 1.4-7.0 751-8) Lymphs (Absolute) (test code = 731-0) 2.0 0.7-3.1 Monocytes(Absolute) (test code = 742-7) 0.8 0.1-0.9 Eos (Absolute) (test code = 711-2) 0.1 0.0-0.4 Baso (Absolute) (test code = 704-7) 0.1 0.0-0.2 Immature Granulocytes (test code = 0 Not Estab. 30365-5) Immature Grans (Abs) (test code = 0.0 0.0-0.1 95752-9) NRBC (test code = 76950-7) Hematology Comments: (test code = 62782-0) Vitamin D, 20-[id number] 00:00:00 Test Item Value Reference Range Interpretation Comments Vitamin D, 25-Hydroxy (test code = 25.7 30.0-100.0 1988-3) SPECIAL [id number] 20:27:20 Test Item Value Reference Range Interpretation Comments Hgb A1C (test code = Hgb A1C) 6.6 [facility] [id number] 20:27:20 Test Item Value Reference Range Interpretation Comments Hgb A1C (test code = Hgb A1C) 6.6 [facility] [id number] 20:27:20 Test Item Value Reference Range Interpretation Comments Hgb A1C (test code = Hgb A1C) 6.6 [facility] [id number] 20:27:20 Test Item Value Reference Range Interpretation Comments Hgb A1C (test code = Hgb A1C) 6.6 [facility] [id number] 20:27:20 Test Item Value Reference Range Interpretation Comments Hgb A1C (test code = Hgb A1C) 6.6 [id number] 17:20:44 Test Item Value Reference Range Interpretation Comments CHD Risk (test code = CHD Risk) 3.80 3.90-5.80 [id number] 17:20:44 Test Item Value Reference Range Interpretation Comments CHD Risk (test code = CHD Risk) 3.80 3.90-5.80 [id number] 17:20:44 Test Item Value Reference Range Interpretation Comments Chol (test code = Chol) 167 [facility] [id number] 17:20:44 Test Item Value Reference Range Interpretation Comments HDL (test code = HDL) 44 [facility] Ho[id number] 17:20:44 Test Item Value Reference Range Interpretation Comments Trig (test code = Trig) 182 [id number] 17:20:44 Test Item Value Reference Range Interpretation Comments VLDL (test code = VLDL) 36 [id number] 17:20:44 Test Item Value Reference Range Interpretation Comments LDL (Calculated) (test code = LDL 87 (Calculated)) [id number] 17:20:44 Test Item Value Reference Range Interpretation Comments Chol (test code = Chol) 167 [facility] HospitalJdsjtqhDBXMHA3684-81-21 17:20:44 Test Item Value Reference Range Interpretation Comments HDL (test code = HDL) 44 [facility] [id number] 17:20:44 Test Item Value Reference Range Interpretation Comments Trig (test code = Trig) 182 [id number] 17:20:44 Test Item Value Reference Range Interpretation Comments VLDL (test code = VLDL) 36 [facility] Ho[id number] 17:20:44 Test Item Value Reference Range Interpretation Comments LDL (Calculated) (test code = LDL 87 (Calculated)) [facility]QgprpsqDWAUXY3226-49-89 17:20:44 Test Item Value Reference Range Interpretation Comments CHD Risk (test code = CHD Risk) 3.80 3.90-5.80 [facility] NorthwestGmxyotbEYQEKI5406-82-71 17:20:44 Test Item Value Reference Range Interpretation Comments Chol (test code = Chol) 167 [facility] NorthwestScutwjuYTOQKL4788-12-23 17:20:44 Test Item Value Reference Range Interpretation Comments HDL (test code = HDL) 44 [facility] NorthwestYmrhgyqXZNAVP1742-03-16 17:20:44 Test Item Value Reference Range Interpretation Comments Trig (test code = Trig) 182 [facility] NorthwestVzoxcqlOLYGJX8644-60-72 17:20:44 Test Item Value Reference Range Interpretation Comments VLDL (test code = VLDL) 36 [facility] NorthwestUnjpbiuPOZIXV2575-65-97 17:20:44 Test Item Value Reference Range Interpretation Comments LDL (Calculated) (test code = LDL 87 (Calculated)) [facility] NorthwestRzmpmlsTDNEUM9272-75-03 17:20:44 Test Item Value Reference Range Interpretation Comments CHD Risk (test code = CHD Risk) 3.80 3.90-5.80 [facility] NorthwestOgyknqfBGKQVP9246-37-55 17:20:44 Test Item Value Reference Range Interpretation Comments Chol (test code = Chol) 167 [facility] NorthwestLcqbvjiNFLQGV4407-40-63 17:20:44 Test Item Value Reference Range Interpretation Comments HDL (test code = HDL) 44 [facility] NorthwestOmgjnflEJUZTJ8651-66-94 17:20:44 Test Item Value Reference Range Interpretation Comments Trig (test code = Trig) 182 [facility] NorthwestOtldffeTSEQNY0507-95-29 17:20:44 Test Item Value Reference Range Interpretation Comments VLDL (test code = VLDL) 36 [facility] NorthwestQubjuquIPZYZF3734-32-68 17:20:44 Test Item Value Reference Range Interpretation Comments LDL (Calculated) (test code = LDL 87 (Calculated)) [facility] NorthwestUluxnafLPIOBK7570-09-40 17:20:44 Test Item Value Reference Range Interpretation Comments CHD Risk (test code = CHD Risk) 3.80 3.90-5.80 [facility] NorthwestFfkttgiPKYFJU5184-88-98 17:20:44 Test Item Value Reference Range Interpretation Comments Chol (test code = Chol) 167 [place] [address]-10-29 17:20:44 Test Item Value Reference Range Interpretation Comments HDL (test code = HDL) 44 [facility] NorthwestYzcmdzyAPORTC1616-16-31 17:20:44 Test Item Value Reference Range Interpretation Comments Trig (test code = Trig) 182 [facility] NorthwestNbkvsnzWZROSN8303-89-90 17:20:44 Test Item Value Reference Range Interpretation Comments VLDL (test code = VLDL) 36 [facility] NorthwestZjrzqngTMDLRD0200-19-34 17:20:44 Test Item Value Reference Range Interpretation Comments LDL (Calculated) (test code = LDL 87 (Calculated)) [facility]2014-10-29 10:15:00 Test Item Value Reference Range Interpretation Comments % Satur Fe (test code = % Satur Fe) 34 12- [facility]2014-10-29 10:15:00 Test Item Value Reference Range Interpretation Comments TIBC (test code = TIBC) 342 228-428 [facility]2014-10-29 10:15:00 Test Item Value Reference Range Interpretation Comments UIBC (test code = UIBC) 227 110-370 [facility]2014-10-29 10:15:00 Test Item Value Reference Range Interpretation Comments Iron (test code = Iron) 115 30-160 [facility]2014-10-29 10:15:00 Test Item Value Reference Range Interpretation Comments Ferritin Lvl (test code = Ferritin Lvl) 97 5-204 [facility]2014-10-29 10:15:00 Test Item Value Reference Range Interpretation Comments % Satur Fe (test code = % Satur Fe) 34 12- [facility] [id number] 10:15:00 Test Item Value Reference Range Interpretation Comments TIBC (test code = TIBC) 342 228-428 [facility] [id number] 10:15:00 Test Item Value Reference Range Interpretation Comments UIBC (test code = UIBC) 227 110-370 [facility]2014-10-29 10:15:00 Test Item Value Reference Range Interpretation Comments Iron (test code = Iron) 115 30-160 [facility]2014-10-29 10:15:00 Test Item Value Reference Range Interpretation Comments Ferritin Lvl (test code = Ferritin Lvl) 97 5-204 [facility] [id number] 10:15:00 Test Item Value Reference Range Interpretation Comments % Satur Fe (test code = % Satur Fe) 34 [facility] [id number] 10:15:00 Test Item Value Reference Range Interpretation Comments TIBC (test code = TIBC) 342 228-428 [facility]2014-10-29 10:15:00 Test Item Value Reference Range Interpretation Comments UIBC (test code = UIBC) 227 110-370 [facility] [id number] 10:15:00 Test Item Value Reference Range Interpretation Comments Iron (test code = Iron) 115 30-160 [facility] [id number] 10:15:00 Test Item Value Reference Range Interpretation Comments Ferritin Lvl (test code = Ferritin Lvl) 97 [facility] [id number] 10:15:00 Test Item Value Reference Range Interpretation Comments % Satur Fe (test code = % Satur Fe) 34 [facility] [id number] 10:15:00 Test Item Value Reference Range Interpretation Comments TIBC (test code = TIBC) 342 228-428 [facility] [id number] 10:15:00 Test Item Value Reference Range Interpretation Comments UIBC (test code = UIBC) 227 110-370 [facility] [id number] 10:15:00 Test Item Value Reference Range Interpretation Comments Iron (test code = Iron) 115 30-160 [facility] [id number] 10:15:00 Test Item Value Reference Range Interpretation Comments Ferritin Lvl (test code = Ferritin Lvl) 97 [facility]2014-10-29 10:15:00 Test Item Value Reference Range Interpretation Comments % Satur Fe (test code = % Satur Fe) 34 [facility] [id number] 10:15:00 Test Item Value Reference Range Interpretation Comments TIBC (test code = TIBC) 342 228-428 [facility]2014-10-29 10:15:00 Test Item Value Reference Range Interpretation Comments UIBC (test code = UIBC) 227 110-370 [facility] [id number] 10:15:00 Test Item Value Reference Range Interpretation Comments Iron (test code = Iron) 115 30-160 [facility] [id number] 10:15:00 Test Item Value Reference Range Interpretation Comments Ferritin Lvl (test code = Ferritin Lvl) 97 5-204 [facility]2014-10-28 20:32:24 Test Item Value Reference Range Interpretation Comments Lactic Acid Lvl (test code = Lactic 1.9 0.5-2.2 Acid Lvl) [facility]2014-10-28 20:32:24 Test Item Value Reference Range Interpretation Comments Lactic Acid Lvl (test code = Lactic 1.9 0.5-2.2 Acid Lvl) [facility]2014-10-28 20:32:24 Test Item Value Reference Range Interpretation Comments Lactic Acid Lvl (test code = Lactic 1.9 0.5-2.2 Acid Lvl) [facility]2014-10-28 20:32:24 Test Item Value Reference Range Interpretation Comments Lactic Acid Lvl (test code = Lactic 1.9 0.5-2.2 Acid Lvl) [facility]2014-10-28 20:32:24 Test Item Value Reference Range Interpretation Comments Lactic Acid Lvl (test code = Lactic 1.9 0.5-2.2 Acid Lvl) [facility] AND [id number] 19:18:07 Test Item Value Reference Range Interpretation Comments UA Mucus (test code = None Seen (02/17/14 UA Mucus) 2:18 PM) [facility] AND [id number] 19:18:07 Test Item Value Reference Range Interpretation Comments UA Sq Epi (test code = UA Sq Epi) Few /LPF [facility] AND [id number] 19:18:07 Test Item Value Reference Range Interpretation Comments UA RBC (test None Seen See_Comment [Automated mes paras] code = UA RBC) (02/17/14 2:18 The system which PM) generated this result transmitted ref erence range: <=2. The reference range was not used to int erpret this result as normal/abnormal . [facility] AND [id number] 19:18:07 Test Item Value Reference Range Interpretation Comments UA Bacteria (test code = UA Occasional /HPF Bacteria) [facility] AND [id number] 19:18:07 Test Item Value Reference Range Interpretation Comments UA WBC (test code = UA WBC) 0-2 /HPF [facility] AND [id number] 19:18:07 Test Item Value Reference Range Interpretation Comments UA Spec Grav (test code = UA Spec 1.020 1 Grav) [facility] AND [id number] 19:18:07 Test Item Value Reference Range Interpretation Comments UA Color (test code = Yellow *NA*(02/17/14 UA Color) 2:18 PM) [facility] AND [id number] 19:18:07 Test Item Value Reference Range Interpretation Comments UA Turbidity (test code = Clear (02/17/14 2:18 UA Turbidity) PM) [facility] AND [id number] 19:18:07 Test Item Value Reference Range Interpretation Comments UA Leuk Est (test Negative (02/17/14 2:18 code = UA Leuk Est) PM) [facility] AND [id number] 19:18:07 Test Item Value Reference Range Interpretation Comments UA Nitrite (test code Negative (02/17/14 2:18 = UA Nitrite) PM) [facility] AND [id number] 19:18:07 Test Item Value Reference Range Interpretation Comments UA Urobilinogen (test code = UA 0.2 0.1-1.0 Urobilinogen) [facility] AND [id number] 19:18:07 Test Item Value Reference Range Interpretation Comments UA Blood (test code = Negative (02/17/14 2:18 UA Blood) PM) [facility] AND [id number] 19:18:07 Test Item Value Reference Range Interpretation Comments UA Bili (test code = Negative *NA*(02/17/14 UA Bili) 2:18 PM) [facility] AND [id number] 19:18:07 Test Item Value Reference Range Interpretation Comments UA Glucose (test code Negative (02/17/14 2:18 = UA Glucose) PM) [facility] AND [id number] 19:18:07 Test Item Value Reference Range Interpretation Comments UA Ketones (test code Negative *NA*(02/17/14 = UA Ketones) 2:18 PM) [facility] [id number] 19:18:07 Test Item Value Reference Range Interpretation Comments UA Protein (test code Negative (02/17/14 2:18 = UA Protein) PM) [facility] [id number] 19:18:07 Test Item Value Reference Range Interpretation Comments UA pH (test code = UA pH) 6.5 1 5.0-8.0 [facility] [id number] 19:18:07 Test Item Value Reference Range Interpretation Comments UA Mucus (test code = None Seen (02/17/14 UA Mucus) 2:18 PM) [facility] [id number] 19:18:07 Test Item Value Reference Range Interpretation Comments UA Sq Epi (test code = UA Sq Epi) Few /LPF [facility] [id number] 19:18:07 Test Item Value Reference Range Interpretation Comments UA RBC (test None Seen See_Comment [Automated mes paras] code = UA RBC) (02/17/14 2:18 The system which PM) generated this result transmitted ref erence range: <=2. The reference range was not used to int erpret this result as normal/abnormal . [facility] [id number] 19:18:07 Test Item Value Reference Range Interpretation Comments UA Bacteria (test code = UA Occasional /HPF Bacteria) [facility] [id number] 19:18:07 Test Item Value Reference Range Interpretation Comments UA WBC (test code = UA WBC) 0-2 /HPF [facility] [id number] 19:18:07 Test Item Value Reference Range Interpretation Comments UA Spec Grav (test code = UA Spec 1.020 1 Grav) [facility] [id number] 19:18:07 Test Item Value Reference Range Interpretation Comments UA Color (test code = Yellow *NA*(02/17/14 UA Color) 2:18 PM) [facility] [id number] 19:18:07 Test Item Value Reference Range Interpretation Comments UA Turbidity (test code = Clear (02/17/14 2:18 UA Turbidity) PM) [facility] [id number] 19:18:07 Test Item Value Reference Range Interpretation Comments UA Leuk Est (test Negative (02/17/14 2:18 code = UA Leuk Est) PM) [facility] AND [id number] 19:18:07 Test Item Value Reference Range Interpretation Comments UA Nitrite (test code Negative (02/17/14 2:18 = UA Nitrite) PM) [facility] AND [id number] 19:18:07 Test Item Value Reference Range Interpretation Comments UA Urobilinogen (test code = UA 0.2 0.1-1.0 Urobilinogen) [facility] AND [id number] 19:18:07 Test Item Value Reference Range Interpretation Comments UA Blood (test code = Negative (02/17/14 2:18 UA Blood) PM) [facility] AND [id number] 19:18:07 Test Item Value Reference Range Interpretation Comments UA Bili (test code = Negative *NA*(02/17/14 UA Bili) 2:18 PM) [facility] AND [id number] 19:18:07 Test Item Value Reference Range Interpretation Comments UA Glucose (test code Negative (02/17/14 2:18 = UA Glucose) PM) [facility] AND [id number] 19:18:07 Test Item Value Reference Range Interpretation Comments UA Ketones (test code Negative *NA*(02/17/14 = UA Ketones) 2:18 PM) [facility] AND [id number] 19:18:07 Test Item Value Reference Range Interpretation Comments UA Protein (test code Negative (02/17/14 2:18 = UA Protein) PM) [facility] AND [id number] 19:18:07 Test Item Value Reference Range Interpretation Comments UA pH (test code = UA pH) 6.5 1 5.0-8.0 [facility] AND [id number] 19:18:07 Test Item Value Reference Range Interpretation Comments UA Mucus (test code = None Seen (02/17/14 UA Mucus) 2:18 PM) [facility] AND [id number] 19:18:07 Test Item Value Reference Range Interpretation Comments UA Sq Epi (test code = UA Sq Epi) Few /LPF [facility] AND [id number] 19:18:07 Test Item Value Reference Range Interpretation Comments UA RBC (test None Seen See_Comment [Automated mes paras] code = UA RBC) (02/17/14 2:18 The system which PM) generated this result transmitted ref erence range: <=2. The reference range was not used to int erpret this result as normal/abnormal . [facility] AND [id number] 19:18:07 Test Item Value Reference Range Interpretation Comments UA Bacteria (test code = UA Occasional /HPF Bacteria) [facility] AND [id number] 19:18:07 Test Item Value Reference Range Interpretation Comments UA WBC (test code = UA WBC) 0-2 /HPF [facility] AND [id number] 19:18:07 Test Item Value Reference Range Interpretation Comments UA Spec Grav (test code = UA Spec 1.020 1 Grav) [facility] AND [id number] 19:18:07 Test Item Value Reference Range Interpretation Comments UA Color (test code = Yellow *NA*(02/17/14 UA Color) 2:18 PM) [facility] AND [id number] 19:18:07 Test Item Value Reference Range Interpretation Comments UA Turbidity (test code = Clear (02/17/14 2:18 UA Turbidity) PM) [facility] AND [id number] 19:18:07 Test Item Value Reference Range Interpretation Comments UA Leuk Est (test Negative (02/17/14 2:18 code = UA Leuk Est) PM) [facility] AND [id number] 19:18:07 Test Item Value Reference Range Interpretation Comments UA Nitrite (test code Negative (02/17/14 2:18 = UA Nitrite) PM) [facility] AND [id number] 19:18:07 Test Item Value Reference Range Interpretation Comments UA Urobilinogen (test code = UA 0.2 0.1-1.0 Urobilinogen) [facility] AND [id number] 19:18:07 Test Item Value Reference Range Interpretation Comments UA Blood (test code = Negative (02/17/14 2:18 UA Blood) PM) [facility] AND [id number] 19:18:07 Test Item Value Reference Range Interpretation Comments UA Bili (test code = Negative *NA*(10/28/14 UA Bili) 2:18 PM) [facility] AND [id number] 19:18:07 Test Item Value Reference Range Interpretation Comments UA Glucose (test code Negative (02/17/14 2:18 = UA Glucose) PM) [facility] AND [id number] 19:18:07 Test Item Value Reference Range Interpretation Comments UA Ketones (test code Negative *NA*(02/17/14 = UA Ketones) 2:18 PM) [facility] AND [id number] 19:18:07 Test Item Value Reference Range Interpretation Comments UA Protein (test code Negative (02/17/14 2:18 = UA Protein) PM) [facility] AND [id number] 19:18:07 Test Item Value Reference Range Interpretation Comments UA pH (test code = UA pH) 6.5 1 5.0-8.0 [facility] AND [id number] 19:18:07 Test Item Value Reference Range Interpretation Comments UA Mucus (test code = None Seen (02/17/14 UA Mucus) 2:18 PM) [facility] AND [id number] 19:18:07 Test Item Value Reference Range Interpretation Comments UA Sq Epi (test code = UA Sq Epi) Few /LPF [facility] AND [id number] 19:18:07 Test Item Value Reference Range Interpretation Comments UA RBC (test None Seen See_Comment [Automated mes paras] code = UA RBC) (02/17/14 2:18 The system which PM) generated this result transmitted ref erence range: <=2. The reference range was not used to int erpret this result as normal/abnormal . [facility] AND [id number] 19:18:07 Test Item Value Reference Range Interpretation Comments UA Bacteria (test code = UA Occasional /HPF Bacteria) [facility] AND [id number] 19:18:07 Test Item Value Reference Range Interpretation Comments UA WBC (test code = UA WBC) 0-2 /HPF [facility] AND [id number] 19:18:07 Test Item Value Reference Range Interpretation Comments UA Spec Grav (test code = UA Spec 1.020 1 Grav) [facility] AND [id number] 19:18:07 Test Item Value Reference Range Interpretation Comments UA Color (test code = Yellow *NA*(02/17/14 UA Color) 2:18 PM) [facility] AND [id number] 19:18:07 Test Item Value Reference Range Interpretation Comments UA Turbidity (test code = Clear (02/17/14 2:18 UA Turbidity) PM) [facility] AND [id number] 19:18:07 Test Item Value Reference Range Interpretation Comments UA Leuk Est (test Negative (02/17/14 2:18 code = UA Leuk Est) PM) [facility] AND [id number] 19:18:07 Test Item Value Reference Range Interpretation Comments UA Nitrite (test code Negative (02/17/14 2:18 = UA Nitrite) PM) [facility] AND [id number] 19:18:07 Test Item Value Reference Range Interpretation Comments UA Urobilinogen (test code = UA 0.2 0.1-1.0 Urobilinogen) [facility] AND [id number] 19:18:07 Test Item Value Reference Range Interpretation Comments UA Blood (test code = Negative (02/17/14 2:18 UA Blood) PM) [facility] AND [id number] 19:18:07 Test Item Value Reference Range Interpretation Comments UA Bili (test code = Negative *NA*(02/17/14 UA Bili) 2:18 PM) [facility] AND [id number] 19:18:07 Test Item Value Reference Range Interpretation Comments UA Glucose (test code Negative (02/17/14 2:18 = UA Glucose) PM) [facility] AND [id number] 19:18:07 Test Item Value Reference Range Interpretation Comments UA Ketones (test code Negative *NA*(02/17/14 = UA Ketones) 2:18 PM) [facility] AND [id number] 19:18:07 Test Item Value Reference Range Interpretation Comments UA Protein (test code Negative (02/17/14 2:18 = UA Protein) PM) [facility] AND [id number] 19:18:07 Test Item Value Reference Range Interpretation Comments UA pH (test code = UA pH) 6.5 1 5.0-8.0 [facility] AND [id number] 19:18:07 Test Item Value Reference Range Interpretation Comments UA Mucus (test code = None Seen (02/17/14 UA Mucus) 2:18 PM) [facility] AND [id number] 19:18:07 Test Item Value Reference Range Interpretation Comments UA Sq Epi (test code = UA Sq Epi) Few /LPF [facility] AND [id number] 19:18:07 Test Item Value Reference Range Interpretation Comments UA RBC (test None Seen See_Comment [Automated mes paras] code = UA RBC) (02/17/14 2:18 The system which PM) generated this result transmitted ref erence range: <=2. The reference range was not used to int erpret this result as normal/abnormal . [facility] AND [id number] 19:18:07 Test Item Value Reference Range Interpretation Comments UA Bacteria (test code = UA Occasional /HPF Bacteria) [facility] AND [id number] 19:18:07 Test Item Value Reference Range Interpretation Comments UA WBC (test code = UA WBC) 0-2 /HPF [facility] AND [id number] 19:18:07 Test Item Value Reference Range Interpretation Comments UA Spec Grav (test code = UA Spec 1.020 1 Grav) [facility] AND [id number] 19:18:07 Test Item Value Reference Range Interpretation Comments UA Color (test code = Yellow *NA*(02/17/14 UA Color) 2:18 PM) [facility] AND [id number] 19:18:07 Test Item Value Reference Range Interpretation Comments UA Turbidity (test code = Clear (02/17/14 2:18 UA Turbidity) PM) [facility] AND [id number] 19:18:07 Test Item Value Reference Range Interpretation Comments UA Leuk Est (test Negative (02/17/14 2:18 code = UA Leuk Est) PM) [facility] AND [id number] 19:18:07 Test Item Value Reference Range Interpretation Comments UA Nitrite (test code Negative (02/17/14 2:18 = UA Nitrite) PM) [facility] AND [id number] 19:18:07 Test Item Value Reference Range Interpretation Comments UA Urobilinogen (test code = UA 0.2 0.1-1.0 Urobilinogen) [facility] [id number] 19:18:07 Test Item Value Reference Range Interpretation Comments UA Blood (test code = Negative (02/17/14 2:18 UA Blood) PM) [facility] [id number] 19:18:07 Test Item Value Reference Range Interpretation Comments UA Bili (test code = Negative *NA*(02/17/14 UA Bili) 2:18 PM) [facility] [id number] 19:18:07 Test Item Value Reference Range Interpretation Comments UA Glucose (test code Negative (02/17/14 2:18 = UA Glucose) PM) [facility] [id number] 19:18:07 Test Item Value Reference Range Interpretation Comments UA Ketones (test code Negative *NA*(02/17/14 = UA Ketones) 2:18 PM) [facility] [id number] 19:18:07 Test Item Value Reference Range Interpretation Comments UA Protein (test code Negative (02/17/14 2:18 = UA Protein) PM) [facility] [id number] 19:18:07 Test Item Value Reference Range Interpretation Comments UA pH (test code = UA pH) 6.5 1 5.0-8.0 [facility]annCARLa Más MonaAC [id number] 17:09:00 Test Item Value Reference Range Interpretation Comments CK MB (test code = CK MB) 3.4 0.5-3.6 [facility] [id number] 17:09:00 Test Item Value Reference Range Interpretation Comments Troponin-I (test code 0.07 See_Comment [Auto mated message] The = Troponin-I) system which g enerated this result transmit yossi reference range : <=0.40. The reference r joe was not used to interpr et this result as ivonne l/abnormal. [facility] [employer] GEWPVAY0045-06-02 17:09:00 Test Item Value Reference Range Interpretation Comments Total CK (test code = Total CK) 123 12-191 [facility] [id number] 17:09:00 Test Item Value Reference Range Interpretation Comments CK MB Index (test 2.8 See_Comment [Automate d message] The code = CK MB Index) system w [facility] generated this result transmit yossi reference range : <=2.5. The reference range was not used to interpr et this result as ivonne l/abnormal. [facility]2014-10-28 17:09:00 Test Item Value Reference Range Interpretation Comments eGFR (test code = eGFR) 28 [facility]2014-10-28 17:09:00 Test Item Value Reference Range Interpretation Comments Creatinine Lvl (test code = Creatinine 1.4 0.5-1.4 Lvl) [facility]2014-10-28 17:09:00 Test Item Value Reference Range Interpretation Comments Glucose Lvl (test code = Glucose Lvl) 211 70-99 [facility]2014-10-28 17:09:00 Test Item Value Reference Range Interpretation Comments BUN (test code = BUN) 13 7-22 [facility]2014-10-28 17:09:00 Test Item Value Reference Range Interpretation Comments B/C Ratio (test code = B/C Ratio) 9 6-25 [facility]2014-10-28 17:09:00 Test Item Value Reference Range Interpretation Comments AGAP (test code = AGAP) 16.8 10.0-20.0 [facility]2014-10-28 17:09:00 Test Item Value Reference Range Interpretation Comments Calcium Lvl (test code = Calcium Lvl) 8.8 8.5-10.5 [facility]2014-10-28 17:09:00 Test Item Value Reference Range Interpretation Comments CO2 (test code = CO2) 23 24-32 [facility]2014-10-28 17:09:00 Test Item Value Reference Range Interpretation Comments Chloride Lvl (test code = Chloride Lvl) 105 95-109 [facility]2014-10-28 17:09:00 Test Item Value Reference Range Interpretation Comments Sodium Lvl (test code = Sodium Lvl) 141 135-145 [facility]2014-10-28 17:09:00 Test Item Value Reference Range Interpretation Comments Potassium Lvl (test code = Potassium 3.8 3.5-5.1 Lvl) [facility]2014-10-28 17:09:00 Test Item Value Reference Range Interpretation Comments A/G Ratio (test code = A/G Ratio) 1.0 0.7-1.6 [facility]2014-10-28 17:09:00 Test Item Value Reference Range Interpretation Comments Total Protein (test code = Total 7.0 6.4-8.4 Protein) [facility]2014-10-28 17:09:00 Test Item Value Reference Range Interpretation Comments Albumin Lvl (test code = Albumin Lvl) 3.5 3.5-5.0 [facility]2014-10-28 17:09:00 Test Item Value Reference Range Interpretation Comments AST (test code = AST) 24 See_Comment [Auto mated message] The system which ge nerated this result transmit yossi reference range : <=37. The reference range was not used to interpr et this result as ivonne l/abnormal. [facility]2014-10-28 17:09:00 Test Item Value Reference Range Interpretation Comments ALT (test code = ALT) 28 See_Comment [Auto mated message] The system which ge nerated this result transmit yossi reference range : <=65. The reference range was not used to interpr et this result as ivonne l/abnormal. [facility]2014-10-28 17:09:00 Test Item Value Reference Range Interpretation Comments Bili Total (test code = Bili Total) 0.6 0.2-1.3 [facility]2014-10-28 17:09:00 Test Item Value Reference Range Interpretation Comments Alk Phos (test code = Alk Phos) 94 39-136 [facility]2014-10-28 17:09:00 Test Item Value Reference Range Interpretation Comments Globulin (test code = Globulin) 3.5 2.0-4.0 [facility]2014-10-28 17:09:00 Test Item Value Reference Range Interpretation Comments Lactic Acid Lvl (test code = Lactic 4.9 0.5-2.2 Acid Lvl) [facility]alKMVNPYHTEC5076-[facility]-83 17:09:00 Test Item Value Reference Range Interpretation Comments INR (test code = INR) 0.95 0.85-1.17 [facility] HospitalUumxpwmNUIWZZUCKA1555-49-63 17:09:00 Test Item Value Reference Range Interpretation Comments PT (test code = PT) 12.7 s 12.0-14.7 [facility] HospitalTqpzyuyOUMFQNBIRL3524-59-04 17:09:00 Test Item Value Reference Range Interpretation Comments Platelet (test code = Platelet) 205 133-450 [facility] HospitalOcztgebPEEGPMXVUO7286-21-67 17:09:00 Test Item Value Reference Range Interpretation Comments MCH (test code = MCH) 29.0 pg 27.0-31.0 [facility] HospitalXdwrflzBZBEBCRDYN6983-22-93 17:09:00 Test Item Value Reference Range Interpretation Comments MCHC (test code = MCHC) 33.7 32.0-36.0 [facility] HospitalJiztydeQNYIEZJCHS2867-90-49 17:09:00 Test Item Value Reference Range Interpretation Comments RDW (test code = RDW) 13.6 11.5-14.5 [facility] HospitalGzmlijyBKUJSCGZLP6169-45-93 17:09:00 Test Item Value Reference Range Interpretation Comments Hct (test code = Hct) 51.8 36.0-48.0 [facility] HospitalHlqtscfFXVQKHNOUI7212-57-47 17:09:00 Test Item Value Reference Range Interpretation Comments MCV (test code = MCV) 86.2 80.0-98.0 [facility] HospitalAsmwmivNAVUBCLWFW9405-18-26 17:09:00 Test Item Value Reference Range Interpretation Comments Hgb (test code = Hgb) 17.4 12.0-16.0 [facility] HospitalCxahtguOGNGVTRWND4044-65-29 17:09:00 Test Item Value Reference Range Interpretation Comments RBC (test code = RBC) 6.01 4.20-5.40 [facility] HospitalCblukgdJVPFXVUHYZ8581-65-26 17:09:00 Test Item Value Reference Range Interpretation Comments MPV (test code = MPV) 11.5 7.4-10.4 [facility] HospitalJbndbbtFSKQPVLQLP0979-11-51 17:09:00 Test Item Value Reference Range Interpretation Comments WBC (test code = WBC) 14.1 3.7-10.4 [facility] HospitalNusvbepSOYGUPCZJC6561-80-30 17:09:00 Test Item Value Reference Range Interpretation Comments PTT (test code = PTT) 21.8 s 22.9-35.8 [facility] HospitalYcilnulBRSHFAMCJE7763-55-72 17:09:00 Test Item Value Reference Range Interpretation Comments Plt Morph (test code = Normal (02/17/14 12:09 Plt Morph) PM) [facility] HospitalNdtmfmvXNRZSOPMUG6187-59-24 17:09:00 Test Item Value Reference Range Interpretation Comments RBC Morph (test code = Normal (02/17/14 12:09 RBC Morph) PM) [facility] HospitalTofkdauZELKMCWAZZ3685-70-89 17:09:00 Test Item Value Reference Range Interpretation Comments Eosinophils # (test code 0.1 See_Comment [A utomated message] The = Eosinophils #) system whic h generated this result tra nsmitted reference range : <=0.5. The reference r joe was not used to int erpret this result as normal/abnormal . [facility] HospitalMdzqnfcSMKDHVUJPY9934-47-86 17:09:00 Test Item Value Reference Range Interpretation Comments Basophils # (test code 0.1 See_Comment [Aut omated message] The = Basophils #) system which generated this result tra nsmitted reference range : <=0.2. The reference r joe was not used to int erpret this result as normal/abnormal . [facility] HospitalGfzqpaeMDPTCSXJIN1964-92-06 17:09:00 Test Item Value Reference Range Interpretation Comments Segs-Bands # (test code = Segs-Bands #) 10.8 1.5-8.1 [facility] HospitalNrlufjsDFUXXCGLZD6193-10-33 17:09:00 Test Item Value Reference Range Interpretation Comments Monocytes # (test code 0.6 See_Comment [Aut omated message] The = Monocytes #) system which generated this result tra nsmitted reference range : <=0.8. The reference r joe was not used to int erpret this result as normal/abnormal . [facility] HospitalXuqhugpPLRVHGMVNK4864-20-94 17:09:00 Test Item Value Reference Range Interpretation Comments Lymphocytes # (test code = Lymphocytes 2.5 1.0-5.5 #) [facility] HospitalKmdvupnDUFRBCWPWC1126-81-13 17:09:00 Test Item Value Reference Range Interpretation Comments Lymphocytes (test code = Lymphocytes) 17.5 20.0-40.0 [facility] HospitalQhvssazSYBAUQHYMI0312-58-04 17:09:00 Test Item Value Reference Range Interpretation Comments Segs (test code = Segs) 77.0 45.0-75.0 [facility] HospitalXnfitkpPKRWEFADRO8597-26-68 17:09:00 Test Item Value Reference Range Interpretation Comments Monocytes (test code = Monocytes) 4.3 2.0-12.0 [facility] HospitalLpmwzitSVFYGFTMVR8684-43-75 17:09:00 Test Item Value Reference Range Interpretation Comments Basophils (test code = 0.4 See_Comment [Aut omated message] The Basophils) system which ge nerated this result tra nsmitted reference range : <=1.0. The reference r joe was not used to int erpret this result as normal/abnormal . [facility]GaodtjlGMDXKIVZYT2495-62-98 17:09:00 Test Item Value Reference Range Interpretation Comments Eosinophils (test code = 0.8 See_Comment [A utomated message] The Eosinophils) system which ge nerated this result tra nsmitted reference range : <=4.0. The reference r joe was not used to int erpret this result as normal/abnormal . [facility] [employer]ARDIAC [id number] 17:09:00 Test Item Value Reference Range Interpretation Comments CK MB (test code = CK MB) 3.4 0.5-3.6 [facility] HospitalMarathon TechnologiesAC MIDLVQG4589-16-87 17:09:00 Test Item Value Reference Range Interpretation Comments Troponin-I (test code 0.07 See_Comment [Auto mated message] The = Troponin-I) system which g enerated this result transmit yossi reference range : <=0.40. The reference r joe was not used to interpr et this result as ivonne l/abnormal. [facility] HospitalMarathon TechnologiesAC ZZLSORO7805-26-74 17:09:00 Test Item Value Reference Range Interpretation Comments Total CK (test code = Total CK) 123 12-191 [facility] HospitalMarathon TechnologiesAC AGQJHOC5394-39-56 17:09:00 Test Item Value Reference Range Interpretation Comments CK MB Index (test 2.8 See_Comment [Automate d message] The code = CK MB Index) system w [facility] generated this result transmit yossi reference range : <=2.5. The reference range was not used to interpr et this result as ivonne l/abnormal. [facility] [employer] SBAKU4575-69-15 17:09:00 Test Item Value Reference Range Interpretation Comments eGFR (test code = eGFR) 28 [facility] [employer] [id number] 17:09:00 Test Item Value Reference Range Interpretation Comments Creatinine Lvl (test code = Creatinine 1.4 0.5-1.4 Lvl) [facility] [employer] [id number] 17:09:00 Test Item Value Reference Range Interpretation Comments Glucose Lvl (test code = Glucose Lvl) 211 70-99 [facility]2014-10-28 17:09:00 Test Item Value Reference Range Interpretation Comments BUN (test code = BUN) 13 7- [facility]2014-10-28 17:09:00 Test Item Value Reference Range Interpretation Comments B/C Ratio (test code = B/C Ratio) 9 6-25 [facility]2014-10-28 17:09:00 Test Item Value Reference Range Interpretation Comments AGAP (test code = AGAP) 16.8 10.0-20.0 [facility]2014-10-28 17:09:00 Test Item Value Reference Range Interpretation Comments Calcium Lvl (test code = Calcium Lvl) 8.8 8.5-10.5 [facility]2014-10-28 17:09:00 Test Item Value Reference Range Interpretation Comments CO2 (test code = CO2) 23 24-32 [facility]2014-10-28 17:09:00 Test Item Value Reference Range Interpretation Comments Chloride Lvl (test code = Chloride Lvl) 105 95-109 [facility]2014-10-28 17:09:00 Test Item Value Reference Range Interpretation Comments Sodium Lvl (test code = Sodium Lvl) 141 135-145 [facility]2014-10-28 17:09:00 Test Item Value Reference Range Interpretation Comments Potassium Lvl (test code = Potassium 3.8 3.5-5.1 Lvl) [facility]2014-10-28 17:09:00 Test Item Value Reference Range Interpretation Comments A/G Ratio (test code = A/G Ratio) 1.0 0.7-1.6 [facility]2014-10-28 17:09:00 Test Item Value Reference Range Interpretation Comments Total Protein (test code = Total 7.0 6.4-8.4 Protein) [facility]2014-10-28 17:09:00 Test Item Value Reference Range Interpretation Comments Albumin Lvl (test code = Albumin Lvl) 3.5 3.5-5.0 [facility]2014-10-28 17:09:00 Test Item Value Reference Range Interpretation Comments AST (test code = AST) 24 See_Comment [Auto mated message] The system which ge nerated this result transmit yossi reference range : <=37. The reference range was not used to interpr et this result as ivonne l/abnormal. [facility]2014-10-28 17:09:00 Test Item Value Reference Range Interpretation Comments ALT (test code = ALT) 28 See_Comment [Auto mated message] The system which ge nerated this result transmit yossi reference range : <=65. The reference range was not used to interpr et this result as ivonne l/abnormal. [facility]2014-10-28 17:09:00 Test Item Value Reference Range Interpretation Comments Bili Total (test code = Bili Total) 0.6 0.2-1.3 [facility]2014-10-28 17:09:00 Test Item Value Reference Range Interpretation Comments Alk Phos (test code = Alk Phos) 94 39-136 [facility]2014-10-28 17:09:00 Test Item Value Reference Range Interpretation Comments Globulin (test code = Globulin) 3.5 2.0-4.0 [facility]2014-10-28 17:09:00 Test Item Value Reference Range Interpretation Comments Lactic Acid Lvl (test code = Lactic 4.9 0.5-2.2 Acid Lvl) [facility] HospitalTmstxnjXZXOTKIKUT1451-03-53 17:09:00 Test Item Value Reference Range Interpretation Comments INR (test code = INR) 0.95 0.85-1.17 [facility] HospitalFeftgvhJAVZZKZIZJ8179-22-44 17:09:00 Test Item Value Reference Range Interpretation Comments PT (test code = PT) 12.7 s 12.0-14.7 [facility] HospitalDeoobmzJOXLDVEDJT3594-30-24 17:09:00 Test Item Value Reference Range Interpretation Comments Platelet (test code = Platelet) 205 133-450 [facility] HospitalUexxmxrMPZWLTJSDP1789-30-70 17:09:00 Test Item Value Reference Range Interpretation Comments MCH (test code = MCH) 29.0 pg 27.0-31.0 [facility] HospitalVjrwrqpBGKDRIBZFZ1089-63-53 17:09:00 Test Item Value Reference Range Interpretation Comments MCHC (test code = MCHC) 33.7 32.0-36.0 [facility] HospitalJtntgoqMYWCKQCAYH9900-97-05 17:09:00 Test Item Value Reference Range Interpretation Comments RDW (test code = RDW) 13.6 11.5-14.5 [facility] HospitalYwkqfgaUUBFSFHEGZ6548-50-01 17:09:00 Test Item Value Reference Range Interpretation Comments Hct (test code = Hct) 51.8 36.0-48.0 [facility] HospitalXkkfvcyFCIILCJBSI0069-85-54 17:09:00 Test Item Value Reference Range Interpretation Comments MCV (test code = MCV) 86.2 80.0-98.0 [facility] HospitalItxcgubLHJFTGXQOE1546-50-11 17:09:00 Test Item Value Reference Range Interpretation Comments Hgb (test code = Hgb) 17.4 12.0-16.0 [facility] HospitalXdxzzejSSQKVMPSCL2179-73-09 17:09:00 Test Item Value Reference Range Interpretation Comments RBC (test code = RBC) 6.01 4.20-5.40 [facility] HospitalRbbeyedHMWSKKLAJY2561-82-90 17:09:00 Test Item Value Reference Range Interpretation Comments MPV (test code = MPV) 11.5 7.4-10.4 [facility] HospitalYbqgpzsLMKTWRKJKU0403-55-42 17:09:00 Test Item Value Reference Range Interpretation Comments WBC (test code = WBC) 14.1 3.7-10.4 [facility] HospitalDuhgahvGHGIFVQWRG8848-80-19 17:09:00 Test Item Value Reference Range Interpretation Comments PTT (test code = PTT) 21.8 s 22.9-35.8 [facility] HospitalCzhgufhMHFFLTGJJI3086-72-64 17:09:00 Test Item Value Reference Range Interpretation Comments Plt Morph (test code = Normal (02/17/14 12:09 Plt Morph) PM) [facility] HospitalQlszlenPSYIJFDWMS8648-80-73 17:09:00 Test Item Value Reference Range Interpretation Comments RBC Morph (test code = Normal (02/17/14 12:09 RBC Morph) PM) [facility] HospitalXdodnniUOKKZERSHH7519-62-19 17:09:00 Test Item Value Reference Range Interpretation Comments Eosinophils # (test code 0.1 See_Comment [A utomated message] The = Eosinophils #) system whic h generated this result tra nsmitted reference range : <=0.5. The reference r joe was not used to int erpret this result as normal/abnormal . [facility] HospitalNccuzkwXLCNWMTUGG3785-99-99 17:09:00 Test Item Value Reference Range Interpretation Comments Basophils # (test code 0.1 See_Comment [Aut omated message] The = Basophils #) system which generated this result tra nsmitted reference range : <=0.2. The reference r joe was not used to int erpret this result as normal/abnormal . [facility] HospitalQzhulljGLHPBHVCBU9295-29-79 17:09:00 Test Item Value Reference Range Interpretation Comments Segs-Bands # (test code = Segs-Bands #) 10.8 1.5-8.1 [facility] HospitalNghaealSFHUYYTTWA5150-01-03 17:09:00 Test Item Value Reference Range Interpretation Comments Monocytes # (test code 0.6 See_Comment [Aut omated message] The = Monocytes #) system which generated this result tra nsmitted reference range : <=0.8. The reference r joe was not used to int erpret this result as normal/abnormal . [facility] HospitalWdyjagsJQZROMTXXP5282-59-01 17:09:00 Test Item Value Reference Range Interpretation Comments Lymphocytes # (test code = Lymphocytes 2.5 1.0-5.5 #) [facility] HospitalGpurcgwOAQWHSTUGM6515-44-07 17:09:00 Test Item Value Reference Range Interpretation Comments Lymphocytes (test code = Lymphocytes) 17.5 20.0-40.0 [facility] HospitalFxwpchgFEBZSWBBJT3154-37-15 17:09:00 Test Item Value Reference Range Interpretation Comments Segs (test code = Segs) 77.0 45.0-75.0 [facility] HospitalCqvrxkxXFYJFCPYIZ8112-83-84 17:09:00 Test Item Value Reference Range Interpretation Comments Monocytes (test code = Monocytes) 4.3 2.0-12.0 [facility] HospitalNzqarjsGSSOZCIJKX0766-96-88 17:09:00 Test Item Value Reference Range Interpretation Comments Basophils (test code = 0.4 See_Comment [Aut omated message] The Basophils) system which ge nerated this result tra nsmitted reference range : <=1.0. The reference r joe was not used to int erpret this result as normal/abnormal . [facility] HospitalSxoajgzTQPZHQFWWN6824-68-41 17:09:00 Test Item Value Reference Range Interpretation Comments Eosinophils (test code = 0.8 See_Comment [A utomated message] The Eosinophils) system which ge nerated this result tra nsmitted reference range : <=4.0. The reference r joe was not used to int erpret this result as normal/abnormal . [facility] [employer] IVYPQKX3183-23-73 17:09:00 Test Item Value Reference Range Interpretation Comments CK MB (test code = CK MB) 3.4 0.5-3.6 [facility] [employer] SVIFQNS4440-91-29 17:09:00 Test Item Value Reference Range Interpretation Comments Troponin-I (test code 0.07 See_Comment [Auto mated message] The = Troponin-I) system which g enerated this result transmit yossi reference range : <=0.40. The reference r joe was not used to interpr et this result as ivonne l/abnormal. [facility] [employer] BSKVKTV6259-18-49 17:09:00 Test Item Value Reference Range Interpretation Comments Total CK (test code = Total CK) 123 12-191 [facility]MarketArt[facility] 17:09:00 Test Item Value Reference Range Interpretation Comments CK MB Index (test 2.8 See_Comment [Automate d message] The code = CK MB Index) system w [facility] generated this result transmit yossi reference range : <=2.5. The reference range was not used to interpr et this result as ivonne l/abnormal. [facility] [employer]2014-10-28 17:09:00 Test Item Value Reference Range Interpretation Comments eGFR (test code = eGFR) 28 [facility] [employer]2014-10-28 17:09:00 Test Item Value Reference Range Interpretation Comments Creatinine Lvl (test code = Creatinine 1.4 0.5-1.4 Lvl) [facility] [employer]2014-10-28 17:09:00 Test Item Value Reference Range Interpretation Comments Glucose Lvl (test code = Glucose Lvl) 211 70-99 [facility] [employer]2014-10-28 17:09:00 Test Item Value Reference Range Interpretation Comments BUN (test code = BUN) 13 7-22 [facility] [employer]2014-10-28 17:09:00 Test Item Value Reference Range Interpretation Comments B/C Ratio (test code = B/C Ratio) 9 6-25 [facility] [employer]2014-10-28 17:09:00 Test Item Value Reference Range Interpretation Comments AGAP (test code = AGAP) 16.8 10.0-20.0 [facility]2014-10-28 17:09:00 Test Item Value Reference Range Interpretation Comments Calcium Lvl (test code = Calcium Lvl) 8.8 8.5-10.5 [facility]2014-10-28 17:09:00 Test Item Value Reference Range Interpretation Comments CO2 (test code = CO2) 23 24-32 [facility]2014-10-28 17:09:00 Test Item Value Reference Range Interpretation Comments Chloride Lvl (test code = Chloride Lvl) 105 95-109 [facility]2014-10-28 17:09:00 Test Item Value Reference Range Interpretation Comments Sodium Lvl (test code = Sodium Lvl) 141 135-145 [facility]2014-10-28 17:09:00 Test Item Value Reference Range Interpretation Comments Potassium Lvl (test code = Potassium 3.8 3.5-5.1 Lvl) [facility]2014-10-28 17:09:00 Test Item Value Reference Range Interpretation Comments A/G Ratio (test code = A/G Ratio) 1.0 0.7-1.6 [facility]2014-10-28 17:09:00 Test Item Value Reference Range Interpretation Comments Total Protein (test code = Total 7.0 6.4-8.4 Protein) [facility]2014-10-28 17:09:00 Test Item Value Reference Range Interpretation Comments Albumin Lvl (test code = Albumin Lvl) 3.5 3.5-5.0 [facility]2014-10-28 17:09:00 Test Item Value Reference Range Interpretation Comments AST (test code = AST) 24 See_Comment [Auto mated message] The system which ge nerated this result transmit yossi reference range : <=37. The reference range was not used to interpr et this result as ivonne l/abnormal. [facility]2014-10-28 17:09:00 Test Item Value Reference Range Interpretation Comments ALT (test code = ALT) 28 See_Comment [Auto mated message] The system which ge nerated this result transmit yossi reference range : <=65. The reference range was not used to interpr et this result as ivonne l/abnormal. [facility]2014-10-28 17:09:00 Test Item Value Reference Range Interpretation Comments Bili Total (test code = Bili Total) 0.6 0.2-1.3 [facility]2014-10-28 17:09:00 Test Item Value Reference Range Interpretation Comments Alk Phos (test code = Alk Phos) 94 39-136 [facility]2014-10-28 17:09:00 Test Item Value Reference Range Interpretation Comments Globulin (test code = Globulin) 3.5 2.0-4.0 [facility]2014-10-28 17:09:00 Test Item Value Reference Range Interpretation Comments Lactic Acid Lvl (test code = Lactic 4.9 0.5-2.2 Acid Lvl) [facility]CxqwzbxDZKHYLHWYY2481-15-91 17:09:00 Test Item Value Reference Range Interpretation Comments INR (test code = INR) 0.95 0.85-1.17 [facility] HospitalPcfdagpYTAKRGMVIU6480-48-71 17:09:00 Test Item Value Reference Range Interpretation Comments PT (test code = PT) 12.7 s 12.0-14.7 [facility] HospitalHaphpafEZFMXYEZPF4133-90-32 17:09:00 Test Item Value Reference Range Interpretation Comments Platelet (test code = Platelet) 205 133-450 [facility] HospitalZyiqiopEKWBLKZFAQ8003-72-86 17:09:00 Test Item Value Reference Range Interpretation Comments MCH (test code = MCH) 29.0 pg 27.0-31.0 [facility] HospitalUrbshqeMRWVHNSZHF7044-61-20 17:09:00 Test Item Value Reference Range Interpretation Comments MCHC (test code = MCHC) 33.7 32.0-36.0 [facility] HospitalBiarnubYQFNHEYFAO7346-56-75 17:09:00 Test Item Value Reference Range Interpretation Comments RDW (test code = RDW) 13.6 11.5-14.5 [facility] HospitalPwqkhrrWZYIRRSSJH7377-07-38 17:09:00 Test Item Value Reference Range Interpretation Comments Hct (test code = Hct) 51.8 36.0-48.0 [facility] HospitalRdwsyvnHLOTPHATML6098-34-65 17:09:00 Test Item Value Reference Range Interpretation Comments MCV (test code = MCV) 86.2 80.0-98.0 [facility] HospitalAqbkiboPVNRSKWCDB8955-44-72 17:09:00 Test Item Value Reference Range Interpretation Comments Hgb (test code = Hgb) 17.4 12.0-16.0 [facility]XpvansnQXZYNPKRIE4955-40-39 17:09:00 Test Item Value Reference Range Interpretation Comments RBC (test code = RBC) 6.01 4.20-5.40 [facility] HospitalExxosflCJDOVPAYRT3056-90-26 17:09:00 Test Item Value Reference Range Interpretation Comments MPV (test code = MPV) 11.5 7.4-10.4 [facility] HospitalTbqfyujBDVKRBCAFV8789-66-48 17:09:00 Test Item Value Reference Range Interpretation Comments WBC (test code = WBC) 14.1 3.7-10.4 [facility] HospitalXvhmejgFZSUCDQDTA5229-86-25 17:09:00 Test Item Value Reference Range Interpretation Comments PTT (test code = PTT) 21.8 s 22.9-35.8 [facility] HospitalAczawgbNJYPZGXQVA3392-26-07 17:09:00 Test Item Value Reference Range Interpretation Comments Plt Morph (test code = Normal (02/17/14 12:09 Plt Morph) PM) [facility] HospitalRqzzvobUMVYETPZUP4164-99-46 17:09:00 Test Item Value Reference Range Interpretation Comments RBC Morph (test code = Normal (02/17/14 12:09 RBC Morph) PM) [facility] HospitalZpazxkkKBQYDDKWXM2382-72-82 17:09:00 Test Item Value Reference Range Interpretation Comments Eosinophils # (test code 0.1 See_Comment [A utomated message] The = Eosinophils #) system whic h generated this result tra nsmitted reference range : <=0.5. The reference r joe was not used to int erpret this result as normal/abnormal . [facility] HospitalAwpnmyjGIZRPWBTRZ4458-62-70 17:09:00 Test Item Value Reference Range Interpretation Comments Basophils # (test code 0.1 See_Comment [Aut omated message] The = Basophils #) system which generated this result tra nsmitted reference range : <=0.2. The reference r joe was not used to int erpret this result as normal/abnormal . [facility] HospitalMiknkzhRCJEUERPFW5184-92-22 17:09:00 Test Item Value Reference Range Interpretation Comments Segs-Bands # (test code = Segs-Bands #) 10.8 1.5-8.1 [facility] HospitalMllcaspLCUUFNWTSS2240-85-51 17:09:00 Test Item Value Reference Range Interpretation Comments Monocytes # (test code 0.6 See_Comment [Aut omated message] The = Monocytes #) system which generated this result tra nsmitted reference range : <=0.8. The reference r joe was not used to int erpret this result as normal/abnormal . [facility] HospitalRqyxarvXNXQHMVVVZ5397-90-25 17:09:00 Test Item Value Reference Range Interpretation Comments Lymphocytes # (test code = Lymphocytes 2.5 1.0-5.5 #) [facility] HospitalWjassrrTMOGBDQMSB5710-19-70 17:09:00 Test Item Value Reference Range Interpretation Comments Lymphocytes (test code = Lymphocytes) 17.5 20.0-40.0 [facility] HospitalNgfbylwIWYPBJAHIB9420-42-91 17:09:00 Test Item Value Reference Range Interpretation Comments Segs (test code = Segs) 77.0 45.0-75.0 [facility] HospitalJuwfijsCGYWUHTFSL1782-74-81 17:09:00 Test Item Value Reference Range Interpretation Comments Monocytes (test code = Monocytes) 4.3 2.0-12.0 [facility] HospitalOtzaazwAVHDWWPILX6584-35-44 17:09:00 Test Item Value Reference Range Interpretation Comments Basophils (test code = 0.4 See_Comment [Aut omated message] The Basophils) system which ge nerated this result tra nsmitted reference range : <=1.0. The reference r joe was not used to int erpret this result as normal/abnormal . [facility] HospitalViuzftjYNYZBSDQBI6479-39-53 17:09:00 Test Item Value Reference Range Interpretation Comments Eosinophils (test code = 0.8 See_Comment [A utomated message] The Eosinophils) system which ge nerated this result tra nsmitted reference range : <=4.0. The reference r joe was not used to int erpret this result as normal/abnormal . [facility] [id number] 17:09:00 Test Item Value Reference Range Interpretation Comments CK MB (test code = CK MB) 3.4 0.5-3.6 [facility] [id number] 17:09:00 Test Item Value Reference Range Interpretation Comments Troponin-I (test code 0.07 See_Comment [Auto mated message] The = Troponin-I) system which g enerated this result transmit yossi reference range : <=0.40. The reference r joe was not used to interpr et this result as ivonne l/abnormal. [facility] HospitalCardicaCARLa M[facility] MonaAC [id number] 17:09:00 Test Item Value Reference Range Interpretation Comments Total CK (test code = Total CK) 123 12-191 [facility] HospitalCARLa Más Mona [id number] 17:09:00 Test Item Value Reference Range Interpretation Comments CK MB Index (test 2.8 See_Comment [Automate d message] The code = CK MB Index) system w [facility] generated this result transmit yossi reference range : <=2.5. The reference range was not used to interpr et this result as ivonne l/abnormal. [facility] [employer] [id number] 17:09:00 Test Item Value Reference Range Interpretation Comments eGFR (test code = eGFR) 28 [facility] [id number] 17:09:00 Test Item Value Reference Range Interpretation Comments Creatinine Lvl (test code = Creatinine 1.4 0.5-1.4 Lvl) [facility] [id number] 17:09:00 Test Item Value Reference Range Interpretation Comments Glucose Lvl (test code = Glucose Lvl) 211 70-99 [facility] [id number] 17:09:00 Test Item Value Reference Range Interpretation Comments BUN (test code = BUN) 13 7-22 [facility] [employer] [id number] 17:09:00 Test Item Value Reference Range Interpretation Comments B/C Ratio (test code = B/C Ratio) 9 6-25 [facility] [id number] 17:09:00 Test Item Value Reference Range Interpretation Comments AGAP (test code = AGAP) 16.8 10.0-20.0 [facility] [id number] 17:09:00 Test Item Value Reference Range Interpretation Comments Calcium Lvl (test code = Calcium Lvl) 8.8 8.5-10.5 [facility] [employer] [id number] 17:09:00 Test Item Value Reference Range Interpretation Comments CO2 (test code = CO2) 23 24-32 [facility] [id number] 17:09:00 Test Item Value Reference Range Interpretation Comments Chloride Lvl (test code = Chloride Lvl) 105 95-109 [facility] [id number] 17:09:00 Test Item Value Reference Range Interpretation Comments Sodium Lvl (test code = Sodium Lvl) 141 135-145 [facility]2014-10-28 17:09:00 Test Item Value Reference Range Interpretation Comments Potassium Lvl (test code = Potassium 3.8 3.5-5.1 Lvl) [facility]2014-10-28 17:09:00 Test Item Value Reference Range Interpretation Comments A/G Ratio (test code = A/G Ratio) 1.0 0.7-1.6 [facility]2014-10-28 17:09:00 Test Item Value Reference Range Interpretation Comments Total Protein (test code = Total 7.0 6.4-8.4 Protein) [facility]2014-10-28 17:09:00 Test Item Value Reference Range Interpretation Comments Albumin Lvl (test code = Albumin Lvl) 3.5 3.5-5.0 [facility]2014-10-28 17:09:00 Test Item Value Reference Range Interpretation Comments AST (test code = AST) 24 See_Comment [Auto mated message] The system which ge nerated this result transmit yossi reference range : <=37. The reference range was not used to interpr et this result as ivonne l/abnormal. [facility]2014-10-28 17:09:00 Test Item Value Reference Range Interpretation Comments ALT (test code = ALT) 28 See_Comment [Auto mated message] The system which ge nerated this result transmit yossi reference range : <=65. The reference range was not used to interpr et this result as ivonne l/abnormal. [facility]2014-10-28 17:09:00 Test Item Value Reference Range Interpretation Comments Bili Total (test code = Bili Total) 0.6 0.2-1.3 [facility]2014-10-28 17:09:00 Test Item Value Reference Range Interpretation Comments Alk Phos (test code = Alk Phos) 94 39-136 [facility]2014-10-28 17:09:00 Test Item Value Reference Range Interpretation Comments Globulin (test code = Globulin) 3.5 2.0-4.0 [facility]2014-10-28 17:09:00 Test Item Value Reference Range Interpretation Comments Lactic Acid Lvl (test code = Lactic 4.9 0.5-2.2 Acid Lvl) [facility] HospitalBqccnsiDHODEQRPYK6712-18-64 17:09:00 Test Item Value Reference Range Interpretation Comments INR (test code = INR) 0.95 0.85-1.17 [facility] HospitalEhcucsrPYYXSSTRAC3636-38-10 17:09:00 Test Item Value Reference Range Interpretation Comments PT (test code = PT) 12.7 s 12.0-14.7 [facility] HospitalBxsbmgpUTYRQSCADU3327-30-08 17:09:00 Test Item Value Reference Range Interpretation Comments Platelet (test code = Platelet) 205 133-450 [facility] HospitalApexldlUZIINBIRXG1611-63-84 17:09:00 Test Item Value Reference Range Interpretation Comments MCH (test code = MCH) 29.0 pg 27.0-31.0 [facility] HospitalNcerjpgVOTMYWZGRC9009-30-66 17:09:00 Test Item Value Reference Range Interpretation Comments MCHC (test code = MCHC) 33.7 32.0-36.0 [facility] HospitalDcvlzphGXIVBUVHEG5246-42-82 17:09:00 Test Item Value Reference Range Interpretation Comments RDW (test code = RDW) 13.6 11.5-14.5 [facility] HospitalQcbrizuYMVJMXNWVU6704-84-76 17:09:00 Test Item Value Reference Range Interpretation Comments Hct (test code = Hct) 51.8 36.0-48.0 [facility] HospitalPlploglGJGPNJYZKX5024-55-15 17:09:00 Test Item Value Reference Range Interpretation Comments MCV (test code = MCV) 86.2 80.0-98.0 [facility] HospitalQahqksuPROIUFVOEF4067-42-35 17:09:00 Test Item Value Reference Range Interpretation Comments Hgb (test code = Hgb) 17.4 12.0-16.0 [facility] HospitalYvjoqfeIPLIRPZNSD2430-02-35 17:09:00 Test Item Value Reference Range Interpretation Comments RBC (test code = RBC) 6.01 4.20-5.40 [facility] HospitalDiloyuyKHRDUIEFRF1832-57-31 17:09:00 Test Item Value Reference Range Interpretation Comments MPV (test code = MPV) 11.5 7.4-10.4 [facility] HospitalLfifjyhZNUVTOPGYJ8337-55-43 17:09:00 Test Item Value Reference Range Interpretation Comments WBC (test code = WBC) 14.1 3.7-10.4 [facility] HospitalJxwauvuGXDRUWGODD9060-56-96 17:09:00 Test Item Value Reference Range Interpretation Comments PTT (test code = PTT) 21.8 s 22.9-35.8 [facility] HospitalUaieljtTYPYDFBACD4387-92-75 17:09:00 Test Item Value Reference Range Interpretation Comments Plt Morph (test code = Normal (02/17/14 12:09 Plt Morph) PM) [facility] HospitalAjydkmxNXQSPXKRBY5816-49-79 17:09:00 Test Item Value Reference Range Interpretation Comments RBC Morph (test code = Normal (02/17/14 12:09 RBC Morph) PM) [facility] HospitalXemfuhdVAOTRYDLFZ9952-28-42 17:09:00 Test Item Value Reference Range Interpretation Comments Eosinophils # (test code 0.1 See_Comment [A utomated message] The = Eosinophils #) system whic h generated this result tra nsmitted reference range : <=0.5. The reference r joe was not used to int erpret this result as normal/abnormal . [facility] Hospit[id number] 17:09:00 Test Item Value Reference Range Interpretation Comments Basophils # (test code 0.1 See_Comment [Aut omated message] The = Basophils #) system which generated this result tra nsmitted reference range : <=0.2. The reference r joe was not used to int erpret this result as normal/abnormal . [facility] HospitalTspnbfyBDFHTSKJJZ8300-14-48 17:09:00 Test Item Value Reference Range Interpretation Comments Segs-Bands # (test code = Segs-Bands #) 10.8 1.5-8.1 [facility] Hospit[id number] 17:09:00 Test Item Value Reference Range Interpretation Comments Monocytes # (test code 0.6 See_Comment [Aut omated message] The = Monocytes #) system which generated this result tra nsmitted reference range : <=0.8. The reference r joe was not used to int erpret this result as normal/abnormal . [facility] HospitalGbizbvuZYKIHZIOKI5784-27-95 17:09:00 Test Item Value Reference Range Interpretation Comments Lymphocytes # (test code = Lymphocytes 2.5 1.0-5.5 #) [facility] HospitalMvuhjchMXFHKETUIM9286-79-77 17:09:00 Test Item Value Reference Range Interpretation Comments Lymphocytes (test code = Lymphocytes) 17.5 20.0-40.0 [facility]JbbiqiqLBTXUMBZXV0263-38-72 17:09:00 Test Item Value Reference Range Interpretation Comments Segs (test code = Segs) 77.0 45.0-75.0 [facility]ffxFPZAQGCUYK3081-12-15 17:09:00 Test Item Value Reference Range Interpretation Comments Monocytes (test code = Monocytes) 4.3 2.0-12.0 [facility]DplfdnnAGWLZTCRRP1231-59-29 17:09:00 Test Item Value Reference Range Interpretation Comments Basophils (test code = 0.4 See_Comment [Aut omated message] The Basophils) system which ge nerated this result tra nsmitted reference range : <=1.0. The reference r joe was not used to int erpret this result as normal/abnormal . [facility]FeburokLWAQXYCHHA6916-71-93 17:09:00 Test Item Value Reference Range Interpretation Comments Eosinophils (test code = 0.8 See_Comment [A utomated message] The Eosinophils) system which ge nerated this result tra nsmitted reference range : <=4.0. The reference r joe was not used to int erpret this result as normal/abnormal . [facility]MarketArt[facility] 17:09:00 Test Item Value Reference Range Interpretation Comments CK MB (test code = CK MB) 3.4 0.5-3.6 [facility] HospitalShopowUMUKNHS0059-44-75 17:09:00 Test Item Value Reference Range Interpretation Comments Troponin-I (test code 0.07 See_Comment [Auto mated message] The = Troponin-I) system which g enerated this result transmit yossi reference range : <=0.40. The reference r joe was not used to interpr et this result as ivonne l/abnormal. [facility] 17:09:00 Test Item Value Reference Range Interpretation Comments Total CK (test code = Total CK) 123 12-191 [facility]Market[facility]2014-10-28 17:09:00 Test Item Value Reference Range Interpretation Comments CK MB Index (test 2.8 See_Comment [Automate d message] The code = CK MB Index) system w [facility] generated this result transmit yossi reference range : <=2.5. The reference range was not used to interpr et this result as ivonne l/abnormal. [facility]2014-10-28 17:09:00 Test Item Value Reference Range Interpretation Comments eGFR (test code = eGFR) 28 [facility]2014-10-28 17:09:00 Test Item Value Reference Range Interpretation Comments Creatinine Lvl (test code = Creatinine 1.4 0.5-1.4 Lvl) [facility]2014-10-28 17:09:00 Test Item Value Reference Range Interpretation Comments Glucose Lvl (test code = Glucose Lvl) 211 70-99 [facility]2014-10-28 17:09:00 Test Item Value Reference Range Interpretation Comments BUN (test code = BUN) 13 7-22 [facility]2014-10-28 17:09:00 Test Item Value Reference Range Interpretation Comments B/C Ratio (test code = B/C Ratio) 9 6-25 [facility]2014-10-28 17:09:00 Test Item Value Reference Range Interpretation Comments AGAP (test code = AGAP) 16.8 10.0-20.0 [facility]2014-10-28 17:09:00 Test Item Value Reference Range Interpretation Comments Calcium Lvl (test code = Calcium Lvl) 8.8 8.5-10.5 [facility]2014-10-28 17:09:00 Test Item Value Reference Range Interpretation Comments CO2 (test code = CO2) 23 24-32 [facility]2014-10-28 17:09:00 Test Item Value Reference Range Interpretation Comments Chloride Lvl (test code = Chloride Lvl) 105 95-109 [facility]2014-10-28 17:09:00 Test Item Value Reference Range Interpretation Comments Sodium Lvl (test code = Sodium Lvl) 141 135-145 [facility]2014-10-28 17:09:00 Test Item Value Reference Range Interpretation Comments Potassium Lvl (test code = Potassium 3.8 3.5-5.1 Lvl) [facility]2014-10-28 17:09:00 Test Item Value Reference Range Interpretation Comments A/G Ratio (test code = A/G Ratio) 1.0 0.7-1.6 [facility]2014-10-28 17:09:00 Test Item Value Reference Range Interpretation Comments Total Protein (test code = Total 7.0 6.4-8.4 Protein) [facility]2014-10-28 17:09:00 Test Item Value Reference Range Interpretation Comments Albumin Lvl (test code = Albumin Lvl) 3.5 3.5-5.0 [facility]2014-10-28 17:09:00 Test Item Value Reference Range Interpretation Comments AST (test code = AST) 24 See_Comment [Auto mated message] The system which ge nerated this result transmit yossi reference range : <=37. The reference range was not used to interpr et this result as ivonne l/abnormal. [facility]2014-10-28 17:09:00 Test Item Value Reference Range Interpretation Comments ALT (test code = ALT) 28 See_Comment [Auto mated message] The system which ge nerated this result transmit yossi reference range : <=65. The reference range was not used to interpr et this result as ivonne l/abnormal. [facility]2014-10-28 17:09:00 Test Item Value Reference Range Interpretation Comments Bili Total (test code = Bili Total) 0.6 0.2-1.3 [facility]2014-10-28 17:09:00 Test Item Value Reference Range Interpretation Comments Alk Phos (test code = Alk Phos) 94 39-136 [facility]2014-10-28 17:09:00 Test Item Value Reference Range Interpretation Comments Globulin (test code = Globulin) 3.5 2.0-4.0 [facility]2014-10-28 17:09:00 Test Item Value Reference Range Interpretation Comments Lactic Acid Lvl (test code = Lactic 4.9 0.5-2.2 Acid Lvl) [facility] HospitalSdzxfthHZKYCMLIDF1386-76-42 17:09:00 Test Item Value Reference Range Interpretation Comments INR (test code = INR) 0.95 0.85-1.17 [facility] HospitalXrjgllrGOCLXXYCYG7416-61-41 17:09:00 Test Item Value Reference Range Interpretation Comments PT (test code = PT) 12.7 s 12.0-14.7 [facility] HospitalPvftgrmGYADHCWBOT7832-39-37 17:09:00 Test Item Value Reference Range Interpretation Comments Platelet (test code = Platelet) 205 133-450 [place]704-10-28 17:09:00 Test Item Value Reference Range Interpretation Comments MCH (test code = MCH) 29.0 pg 27.0-31.0 [facility] HospitalMjsamnaIUUFGMKUJG6996-42-76 17:09:00 Test Item Value Reference Range Interpretation Comments MCHC (test code = MCHC) 33.7 32.0-36.0 [facility] HospitalCsmoprvHFLJDPYXMI9675-02-32 17:09:00 Test Item Value Reference Range Interpretation Comments RDW (test code = RDW) 13.6 11.5-14.5 [facility] HospitalEvqfemwGYDDUDKYBD6971-66-65 17:09:00 Test Item Value Reference Range Interpretation Comments Hct (test code = Hct) 51.8 36.0-48.0 [facility] HospitalTfmgeiySCXXWNSABN5325-56-61 17:09:00 Test Item Value Reference Range Interpretation Comments MCV (test code = MCV) 86.2 80.0-98.0 [facility] HospitalLreyhcfXCOSDEIYWJ1923-43-18 17:09:00 Test Item Value Reference Range Interpretation Comments Hgb (test code = Hgb) 17.4 12.0-16.0 [facility] HospitalAtoynidPSKUPSTGPC3627-45-03 17:09:00 Test Item Value Reference Range Interpretation Comments RBC (test code = RBC) 6.01 4.20-5.40 [facility] HospitalOdhswluAMBMRSHGPI5720-54-66 17:09:00 Test Item Value Reference Range Interpretation Comments MPV (test code = MPV) 11.5 7.4-10.4 [facility] HospitalHjxaoalSEQXEIVMKJ5759-07-06 17:09:00 Test Item Value Reference Range Interpretation Comments WBC (test code = WBC) 14.1 3.7-10.4 [facility] HospitalHhyoeazQBMIYVLQVU7322-15-30 17:09:00 Test Item Value Reference Range Interpretation Comments PTT (test code = PTT) 21.8 s 22.9-35.8 [facility] HospitalHqajjwlMLQPEBBPJD8167-41-08 17:09:00 Test Item Value Reference Range Interpretation Comments Plt Morph (test code = Normal (02/17/14 12:09 Plt Morph) PM) [facility] HospitalRfrxwlvBCYHGDHLSH7524-64-88 17:09:00 Test Item Value Reference Range Interpretation Comments RBC Morph (test code = Normal (02/17/14 12:09 RBC Morph) PM) [facility] HospitalLbzvqzvEZTYBHGJCP6440-21-19 17:09:00 Test Item Value Reference Range Interpretation Comments Eosinophils # (test code 0.1 See_Comment [A utomated message] The = Eosinophils #) system whic h generated this result tra nsmitted reference range : <=0.5. The reference r joe was not used to int erpret this result as normal/abnormal . [facility] HospitalFxidrukTKEPIGAJJI7637-77-65 17:09:00 Test Item Value Reference Range Interpretation Comments Basophils # (test code 0.1 See_Comment [Aut omated message] The = Basophils #) system which generated this result tra nsmitted reference range : <=0.2. The reference r joe was not used to int erpret this result as normal/abnormal . [facility] HospitalGgpvgjdYMURSCOYPJ0562-69-85 17:09:00 Test Item Value Reference Range Interpretation Comments Segs-Bands # (test code = Segs-Bands #) 10.8 1.5-8.1 [facility] HospitalPwdkctsSERTXDUDZK7556-04-13 17:09:00 Test Item Value Reference Range Interpretation Comments Monocytes # (test code 0.6 See_Comment [Aut omated message] The = Monocytes #) system which generated this result tra nsmitted reference range : <=0.8. The reference r joe was not used to int erpret this result as normal/abnormal . [facility] HospitalEqzxxxfOAHXUZYYBG2990-75-56 17:09:00 Test Item Value Reference Range Interpretation Comments Lymphocytes # (test code = Lymphocytes 2.5 1.0-5.5 #) [facility] HospitalPtenjicHWSIAIXDPB2372-48-14 17:09:00 Test Item Value Reference Range Interpretation Comments Lymphocytes (test code = Lymphocytes) 17.5 20.0-40.0 [facility] HospitalLpfvzaxZZXJNNSFVD5558-26-74 17:09:00 Test Item Value Reference Range Interpretation Comments Segs (test code = Segs) 77.0 45.0-75.0 [facility] HospitalUrkmcenJFGADQOOHT4031-35-82 17:09:00 Test Item Value Reference Range Interpretation Comments Monocytes (test code = Monocytes) 4.3 2.0-12.0 [facility] HospitalVohojbxZRTYFZSDYS3572-55-88 17:09:00 Test Item Value Reference Range Interpretation Comments Basophils (test code = 0.4 See_Comment [Aut omated message] The Basophils) system which ge nerated this result tra nsmitted reference range : <=1.0. The reference r joe was not used to int erpret this result as normal/abnormal . [facility] HospitalXblfxmwPGGINHBCCB4634-93-09 17:09:00 Test Item Value Reference Range Interpretation Comments Eosinophils (test code = 0.8 See_Comment [A utomated message] The Eosinophils) system which ge nerated this result tra nsmitted reference range : <=4.0. The reference r joe was not used to int erpret this result as normal/abnormal . [facility]
[2022-11-23] MEDS ORDERED: ASPIRIN 81 MG CHEWABLE TABLET ONE (03:52)
[2022-11-23 04:31] LABS: Absolute Lymphocytes (CBC) 2.1 K/uL (0.7-4.9); Lymphocytes % 26.9 % (15.3-44.8); MCV 88.7 fL (80-100); MPV 10.1 fL (7.6-11.3); RBC Red Blood Cell Count 5.08 M/uL (3.86-4.86)
[2022-11-23] MEDS ORDERED: ACETAMINOPHEN 500 MG TAB ONE (04:46)
[2022-11-23] MEDS ORDERED: AMLODIPINE 10 MG TAB ONE (04:46)
[2022-11-23 04:52] LABS: Albumin 3.7 g/dL (3.4-5.0); Bilirubin Direct 0.1 mg/dL (0-0.2); Bilirubin Indirect, Calculated 0.4 mg/dL (0.2-0.8); Bilirubin Total 0.5 mg/dL (0.2-1.0); Potassium 3.7 mEq/L (3.5-5.1); Protein, Total 7.4 g/dL (6.4-8.2); Troponin High Sensitivity 6.9 pg/mL (<58.9)
[2022-11-23] MEDS ORDERED: METOPROLOL TAR 50 MG TAB ONE (05:11)
[2022-11-23] MEDS ORDERED: lisinopriL 10 MG TAB ONE (05:11)
--- NOTE | 2022-11-23 05:34 | ER ---
Nurse's Notes [facility] Name: Amber Acosta Age: 76 yrs Sex: Female : 1945 Arrival Date: 11/23/2022 Time: 03:02 Bed 5 Private MD: Diagnosis: Essential (primary) hypertension Presentation: 11/23 03:20 Coronavirus screen: At this time, the client does not indicate any symptoms associated as6 with coronavirus-19. Ebola Screen: No symptoms or risks identified at this time. 03:21 Risk Assessment: Do you want to hurt yourself or someone else? Patient reports no as6 desire to harm self or others. 03:21 Method Of Arrival: Ambulatory as6 03:28 Chief complaint: Patient's son or daughter states: She woke up having some chest pain vc1 and couldn't remember everything. She was also stumbling around. Note Pt couldn't tell me date or year. Son states that is her normal. Pt knew month was November because it is her birthday month. Onset of symptoms was November 23, 2022 at 02:30. 03:28 Acuity: IVETTE 3 vc1 03:31 Initial Sepsis Screen: Does the patient meet any 2 criteria? No. Patient's initial vc1 sepsis screen is negative. Does the patient have a suspected source of infection? No. Patient's initial sepsis screen is negative. Triage Assessment: 03:31 General: Appears in no apparent distress. comfortable, Behavior is cooperative. Pain: vc1 Complains of pain in head and chest Pain does not radiate. Pain currently is 0 out of 10 on a pain scale. Pain began 1 hour ago. Also complains of sleeplessness. EENT: No deficits noted. No signs and/or symptoms were reported regarding the EENT system. Neuro: Level of Consciousness is awake, alert, obeys commands, Oriented to person, place. Cardiovascular: No deficits noted. Respiratory: Airway is patent Respiratory effort is even, unlabored, Respiratory pattern is regular, symmetrical. GI: No deficits noted. No signs and/or symptoms were reported involving the gastrointestinal system. : No deficits noted. No signs and/or symptoms were reported regarding the genitourinary system. Derm: No deficits noted. No signs and/or symptoms reported regarding the dermatologic system. Musculoskeletal: No deficits noted. No signs and/or symptoms reported regarding the musculoskeletal system. Historical: - Allergies: 03:30 Bees; vc1 03:30 Codeine; vc1 03:30 hydrocodone bitartrate; vc1 03:30 Iodinated Contrast Media - IV Dye; vc1 03:30 Levofloxacin; vc1 03:30 metronidazole; vc1 03:30 PENICILLINS; vc1 03:30 SHELLFISH; vc1 03:30 sulfamethoxazole; vc1 03:30 TRIMETHOPRIM; vc1 03:30 Wasps; vc1 - PMHx: 03:30 Alzheimers; Anxiety; CAD; CVA; Depression; Diabetes - NIDDM; GERD; High Cholesterol; vc1 Hypertension; kidney cancer; Migraines; - Immunization history:: unknown. - Social history:: Smoking status: Patient denies any tobacco usage or history of. - Family history:: not pertinent. Screenin:21 [facility] ED Fall Risk Assessment (Adult) Score/Fall Risk Level 0 - 2 = Low Risk. Abuse as6 screen: Denies threats or abuse. Denies injuries from another. Nutritional screening: No deficits noted. Tuberculosis screening: No symptoms or risk factors identified. Assessment: 03:36 General: Appears in no apparent distress. Behavior is calm, cooperative. Pain: jw7 Complains of pain in head Pain does not radiate. Quality of pain is described as pressure, Pain began 2 hours ago. Is continuous. Neuro: Level of Consciousness is awake, alert, obeys commands, Oriented to person, place, situation, Moves all extremities. Speech is normal, Facial symmetry appears normal, Pupils are PERRLA, Pupil Size: 2 Intact. Cardiovascular: Capillary refill < 3 seconds Patient's skin is warm and dry. Respiratory: Airway is patent Trachea midline Respiratory effort is even, unlabored, Respiratory pattern is regular, symmetrical. 04:53 Reassessment: Patient appears in no apparent distress at this time. Patient and/or jw7 family updated on plan of care and expected duration. Pain level reassessed. Patient is alert, oriented x 3, equal unlabored respirations, skin warm/dry/pink. 05:13 Reassessment: Patient states feeling better. as6 Vital Signs: 03:28 Pulse 67; Resp 16 S; Temp 97.6(TE); Pulse Ox 98% on R/A; kd3 03:31 Weight 63.5 kg; Height 5 ft. 2 in. ; Pain 0/10; vc1 03:34 BP 165 / 115; as6 04:23 BP 225 / 116; Pulse 61; Resp 15 S; Pulse Ox 97% on R/A; kd3 05:12 BP 239 / 117; Pulse 60; Resp 13 S; Pulse Ox 98% on R/A; as6 05:39 BP 208 / 118; Pulse 61; Resp 16 S; Pulse Ox 97% on R/A; as6 03:31 Body Mass Index 25.61 (63.50 kg, 157.48 cm) vc1 03:31 Pain Scale: Adult vc1 NIH Stroke Scale Scores: 03:40 NIHSS Score: 0 jw7 ED Course: 03:04 Patient arrived in ED. am2 03:04 Yeyo Real MD is Attending Physician. rt 03:21 Bed in low position. Call light in reach. as6 03:21 Arm band placed on. as6 03:30 Triage completed. vc1 03:35 Alyssa Santana, RN is Primary Nurse. kd3 03:46 Basic Metabolic Panel Sent. kd3 03:46 CBC with Diff Sent. kd3 03:46 LFT's Sent. kd3 03:46 Magnesium Sent. kd3 03:46 Troponin HS Sent. kd3 03:46 Inserted saline lock: 22 gauge in left antecubital area, using aseptic technique. Blood kd3 collected. 03:51 XRAY Chest (1 view) In Process Unspecified. EDMS 05:40 Provided Education on: take home meds when she gets home . as6 05:41 No provider procedures requiring assistance completed. IV discontinued, intact, as6 bleeding controlled, No redness/swelling at site. Pressure dressing applied. Administered Medications: 03:44 Drug: Aspirin PO Chewable Tablet 324 mg Route: PO; jw7 04:53 Follow up: Response: No adverse reaction jw7 04:39 Drug: Acetaminophen PO 1000 mg Route: PO; as6 05:41 Follow up: Response: No adverse reaction as6 04:39 Drug: amLODIPine PO 10 mg Route: PO; as6 05:41 Follow up: Response: No adverse reaction as6 05:03 Drug: Metoprolol PO 50 mg Route: PO; as6 05:41 Follow up: Response: No adverse reaction as6 05:03 Drug: Lisinopril PO 10 mg Route: PO; as6 05:41 Follow up: Response: No adverse reaction as6 Medication: 03:21 VIS not applicable for this client. as6 Outcome: 05:33 Discharge ordered by . rt 05:40 Discharged to home ambulatory, with family. as6 05:40 Condition: stable 05:40 Discharge instructions given to patient, family, Instructed on discharge instructions, follow up and referral plans. Demonstrated understanding of instructions, follow-up care. 05:41 Patient left the ED. as6 NIH Stroke Scale - NIH Stroke Score Date: 11/23/2022 Time: 03:40 Total Score = 0 10. Dysarthria (speech clarity - read or repeat words) - 0(Normal) 11. Extinction and Inattention (visual/tactile/auditory/spatial/personal) - 0(No abnormality) 1a. Level of Consciousness (LOC) - 0(Alert) 1b. Level of Consciousness (LOC) (Month \T\ Age) - 0(Both) 1c. LOC Commands (Open \T\ Closes Eyes/Button Sewer) - 0(Both) 2. Best Gaze (Lateral Gaze Paresis) - 0(Normal) 3. Visual Field Loss - 0(No visual loss) 4. Facial Palsy - 0(Normal) 5a. Left Arm: Motor (10-second hold) - 0(No drift) 5b. Right Arm: Motor (10-second hold) - 0(No drift) 6a. Left Leg: Motor (5-second hold - always test supine) - 0(No drift) 6b. Right Leg: Motor (5-second hold - always test supine) - 0(No drift) 7. Limb Ataxia (finger/nose \T\ heel/hansen - test with eyes open) - 0(Absent) 8. Sensory Loss (pinprick arms/legs/face) - 0(Normal) 9. Best Language: Aphasia (description/naming/reading) - 0(No aphasia) Initials: jw7 Signatures: Dispatcher [employer] EDAL Adelina Valdes Ashby, RN RN as6 Alyssa Santana RN RN kd3 Marta Layton RN RN vc1 Devora Ochoa RN RN jw7 Yeyo Real MD MD rt
--- NOTE | 2022-11-23 05:34 | EDPHYS ---
Physician Documentation [facility] Name: Amber Acosta Age: 76 yrs Sex: Female : 1945 Arrival Date: 11/23/2022 Time: 03:02 Bed 5 Private MD: ED Physician Yeyo Real HPI: 11/23 03:48 This 76 yrs old Female presents to ER via Ambulatory with complaints of Anxiety, rt Headache. 03:48 Patient woke up at about 1 with a vague chest pain. She was feeling well when she went rt to bed. The patient states the symptoms have since resolved. The patient had reportedly stumbling gait, this is also resolved, and reportedly not uncommon for the patient per the son. The patient has a headache which is generalized. Patient does have a history of chronic headaches, this is similar to previous episodes. She denies other acute complaints at this time. Symptoms are moderate severity, no other aggravating or alleviating factors. Historical: - Allergies: 03:30 Bees; vc1 03:30 Codeine; vc1 03:30 hydrocodone bitartrate; vc1 03:30 Iodinated Contrast Media - IV Dye; vc1 03:30 Levofloxacin; vc1 03:30 metronidazole; vc1 03:30 PENICILLINS; vc1 03:30 SHELLFISH; vc1 03:30 sulfamethoxazole; vc1 03:30 TRIMETHOPRIM; vc1 03:30 Wasps; vc1 - PMHx: 03:30 Alzheimers; Anxiety; CAD; CVA; Depression; Diabetes - NIDDM; GERD; High Cholesterol; vc1 Hypertension; kidney cancer; Migraines; - Immunization history:: unknown. - Social history:: Smoking status: Patient denies any tobacco usage or history of. - Family history:: not pertinent. ROS: 03:48 Constitutional: Negative for fever, chills, and weight loss, Respiratory: Negative for rt shortness of breath, cough, wheezing, and pleuritic chest pain, Abdomen/GI: Negative for abdominal pain, nausea, vomiting, diarrhea, and constipation, MS/Extremity: Negative for injury and deformity, Skin: Negative for injury, rash, and discoloration. 03:48 Cardiovascular: Positive for chest pain, Negative for edema. 03:48 Neuro: Positive for headache, Negative for altered mental status. Exam: 03:48 Constitutional: This is a well developed, well nourished patient who is awake, alert, rt and in no acute distress. Head/Face: Normocephalic, atraumatic. Chest/axilla: Normal chest wall appearance and motion. Nontender with no deformity. No lesions are appreciated. Cardiovascular: Regular rate and rhythm with a normal S1 and S2. No gallops, murmurs, or rubs. Normal PMI, no JVD. No pulse deficits. Respiratory: Lungs have equal breath sounds bilaterally, clear to auscultation and percussion. No rales, rhonchi or wheezes noted. No increased work of breathing, no retractions or nasal flaring. Abdomen/GI: Soft, non-tender, with normal bowel sounds. No distension or tympany. No guarding or rebound. No evidence of tenderness throughout. Skin: Warm, dry with normal turgor. Normal color with no rashes, no lesions, and no evidence of cellulitis. MS/ Extremity: Pulses equal, no cyanosis. Neurovascular intact. Full, normal range of motion. Neuro: Awake and alert, GCS 15, oriented to person, place, time, and situation. Cranial nerves II-XII grossly intact. Motor strength 5/5 in all extremities. Sensory grossly intact. Cerebellar exam normal. Normal gait. 03:48 ECG was reviewed by the Attending Physician. Vital Signs: 03:28 Pulse 67; Resp 16 S; Temp 97.6(TE); Pulse Ox 98% on R/A; kd3 03:31 Weight 63.5 kg; Height 5 ft. 2 in. ; Pain 0/10; vc1 03:34 BP 165 / 115; as6 04:23 BP 225 / 116; Pulse 61; Resp 15 S; Pulse Ox 97% on R/A; kd3 05:12 BP 239 / 117; Pulse 60; Resp 13 S; Pulse Ox 98% on R/A; as6 05:39 BP 208 / 118; Pulse 61; Resp 16 S; Pulse Ox 97% on R/A; as6 03:31 Body Mass Index 25.61 (63.50 kg, 157.48 cm) vc1 03:31 Pain Scale: Adult vc1 NIH Stroke Scale Scores: 03:40 NIHSS Score: 0 jw7 MDM: 03:19 Patient medically screened. rt 05:34 Differential diagnosis: Essential hypertension, acute coronary syndrome, nonspecific rt chest pain. Data reviewed: vital signs, nurses notes. Consideration of Admission/Observation Escalation of care including admission/observation considered. I considered the following discharge prescriptions or medication management in the emergency department Medications were administered in the Emergency Department. See MAR. Independent interpretation of the following test(s) in the Emergency Department X-Ray: My interpretation is No consolidation seen on interpretation of the x-ray images. Test considered but Not performed: CT: Patient with headache that is consistent with prior episodes of headache, she has has known chronic headaches. Very low suspicion for intracranial hemorrhage given lack of change in the character of the headache. CT is not indicated. Historians other than the Patient: Daughter/Son: . Care significantly affected by the following chronic conditions: Hypertension. Counseling: I had a detailed discussion with the patient and/or guardian regarding: the historical points, exam findings, and any diagnostic results supporting the discharge/admit diagnosis, the presence of at least one elevated blood pressure reading (>120/80) during this emergency department visit, lab results, radiology results, the need for outpatient follow up. ED course: Patient and son requesting discharge. Patient states that she feels better, has no symptoms in the ED. Patient with hypertension, she states that she typically takes her medicines about this time each day. Patient's home medications were given. Blood pressure is improving, strongly desirous of discharge. Low suspicion for acute coronary syndrome, given chronicity of symptoms, 1 set of enzymes is sufficient to rule out acute coronary syndrome. Return precautions discussed. 11/23 03:33 Order name: Basic Metabolic Panel; Complete Time: 04:53 rt 11/23 03:33 Order name: CBC with Diff; Complete Time: 04:42 rt 11/23 03:33 Order name: LFT's; Complete Time: 04:53 rt 11/23 03:33 Order name: Magnesium; Complete Time: 04:53 rt 11/23 03:33 Order name: Troponin HS; Complete Time: 04:53 rt 11/23 03:33 Order name: XRAY Chest (1 view) rt 11/23 03:33 Order name: Cardiac monitoring; Complete Time: 03:34 rt 11/23 03:33 Order name: EKG - Nurse/Tech; Complete Time: 03:34 rt 11/23 03:33 Order name: IV Saline Lock; Complete Time: 03:46 rt 11/23 03:33 Order name: Labs collected and sent; Complete Time: 03:46 rt 11/23 03:33 Order name: O2 Per Protocol; Complete Time: 03:34 rt 08 03:33 Order name: O2 Sat Monitoring; Complete Time: 03:34 rt EC:48 Rate is 66 beats/min. Rhythm is regular, Normal Sinus Rhythm with No ectopy. QRS [place] rt is Normal. AL interval is normal. QRS interval is normal. QT interval is normal. No Q waves. Clinical impression: NSR w/ Non-specific ST/T Changes. Administered Medications: 03:44 Drug: Aspirin PO Chewable Tablet 324 mg Route: PO; jw7 04:53 Follow up: Response: No adverse reaction jw7 04:39 Drug: Acetaminophen PO 1000 mg Route: PO; as6 05:41 Follow up: Response: No adverse reaction as6 04:39 Drug: amLODIPine PO 10 mg Route: PO; as6 05:41 Follow up: Response: No adverse reaction as6 05:03 Drug: Metoprolol PO 50 mg Route: PO; as6 05:41 Follow up: Response: No adverse reaction as6 05:03 Drug: Lisinopril PO 10 mg Route: PO; as6 05:41 Follow up: Response: No adverse reaction as6 Disposition Summary: 11/23/22 05:33 Discharge Ordered Location: Home rt Problem: an acute exacerbation rt Symptoms: have improved rt Condition: Stable rt Diagnosis - Essential (primary) hypertension rt Followup: rt - With: Private Physician - When: 2 - 3 days - Reason: Discharge Instructions: - Discharge Summary Sheet rt - Hypertension, Adult rt Forms: - Medication Reconciliation Form rt - Thank You Letter rt - Antibiotic Education rt - Prescription Opioid Use rt - Patient Portal Instructions rt NIH Stroke Scale - NIH Stroke Score Date: 11/23/2022 Time: 03:40 Total Score = 0 10. Dysarthria (speech clarity - read or repeat words) - 0(Normal) 11. Extinction and Inattention (visual/tactile/auditory/spatial/personal) - 0(No abnormality) 1a. Level of Consciousness (LOC) - 0(Alert) 1b. Level of Consciousness (LOC) (Month \T\ Age) - 0(Both) 1c. LOC Commands (Open \T\ Closes Eyes/Cabinetmaker Supervisor) - 0(Both) 2. Best Gaze (Lateral Gaze Paresis) - 0(Normal) 3. Visual Field Loss - 0(No visual loss) 4. Facial Palsy - 0(Normal) 5a. Left Arm: Motor (10-second hold) - 0(No drift) 5b. Right Arm: Motor (10-second hold) - 0(No drift) 6a. Left Leg: Motor (5-second hold - always test supine) - 0(No drift) 6b. Right Leg: Motor (5-second hold - always test supine) - 0(No drift) 7. Limb Ataxia (finger/nose \T\ heel/hansen - test with eyes open) - 0(Absent) 8. Sensory Loss (pinprick arms/legs/face) - 0(Normal) 9. Best Language: Aphasia (description/naming/reading) - 0(No aphasia) Initials: jw7 Signatures: Dispatcher [employer] Lavelle Garcia RN RN as6 Marta Layton RN RN vc1 Devora Ochoa RN RN jw7 Yeyo Real MD MD rt
[2022-11-23 05:54] VITALS: TEMP 97.6
[2022-11-23 06:07] VITALS: BP 208/118; O2SAT 97
--- NOTE | 2022-11-23 12:20 | RAD REPORT ---
EXAM DESCRIPTION: RAD - Chest Single View - 11/23/2022 3:50 am CLINICAL HISTORY: 76 years Female CHEST PAIN COMPARISON: None FINDINGS: Asymmetric elevation of the right hemidiaphragm. Lung volumes adequate. Cardiac silhouette is normal in size. No pneumothorax. No large pleural effusion. No focal consolidation. No acute bony finding. IMPRESSION: 1. No acute cardiopulmonary findings. 2. Asymmetric elevation of the right hemidiaphragm. Electronically signed by: Honey Parry MD 11/23/2022 3:59 AM CDT Due to temporary technical issues with the PACS/Fluency reporting system, reports are being signed by the in house radiologist without review as a courtesy to ensure prompt reporting. The interpreting r adiologist is fully responsible for the content of the report.
--- NOTE | 2022-11-27 13:18 | EKG ---
Test Date: 2022-11-23 Test Time: 03:30:00 Patternmaker Helper: PAULO MEASUREMENT RESULTS: Intervals: Rate: 66 IN: 160 QRSD: 80 QT: 400 QTc: 419 [place]: P: 65 IN: 160 QRS: 12 T: 101 INTERPRETIVE STATEMENTS: Normal sinus rhythm ST & T wave abnormality, consider lateral ischemia Abnormal ECG Compared to ECG 07/27/2022 18:30:58 ST (T wave) deviation now present Possible ischemia now present Left ventricular hypertrophy no longer present Early repolarization no longer present Electronically Signed On 11-27-22 13:11:47 CDT by Nando Kelley
== END 2022-11-23 05:41 | disposition home or self-care (01) ==
LOC: ER 03:02
DX: I10 Essential (primary) hypertension (principal); G30.9 Alzheimer's disease, unspecified; F02.80 Dementia in other diseases classified elsewhere, unspecified severity, without behavioral disturbance, psychotic disturbance, mood disturbance, and anxiety; E11.9 Type 2 diabetes mellitus without complications; Z88.0 Allergy status to penicillin; Z88.1 Allergy status to other antibiotic agents; Z88.2 Allergy status to sulfonamides; Z88.5 Allergy status to narcotic agent; Z91.013 Allergy to seafood; Z91.030 Bee allergy status; Z91.041 Radiographic dye allergy status; Z91.038 Other insect allergy status
CPT/HCPCS: 36415; 71045; 80048; 80076; 83735; 84484; 85025; 93005; 99284

== ENCOUNTER 2023-04-19 01:11 | Inpatient (IN) | payer OTHER ==
[2023-04-19 02:27] LABS: Absolute Lymphocytes (CBC) 1.9 K/uL (0.7-4.9); Hematocrit 46.6 % (36.0-45.0); Lymphocytes % 23.3 % (15.3-44.8); MCV 88.3 fL (80-100); MPV 9.4 fL (7.6-11.3); Platelets 195 thou/uL (152-406); RBC Red Blood Cell Count 5.28 M/uL (3.86-4.86)
[2023-04-19] MEDS ORDERED: NA CHLORIDE 0.9% 500 ML ONE (02:48)
[2023-04-19 02:58] LABS: Urine Bacteria None Seen /HPF (<20); Urine Bilirubin NEGATIVE (Negative); Urine Blood Negative (Negative); Urine Clarity Clear (Clear); Urine Color Dark-Yellow (Yellow); Urine Glucose NEGATIVE (Negative); Urine Protein NEGATIVE (Negative); Urine RBC <5 /HPF (None Seen); Urine Urobilinogen Normal (Normal)
[2023-04-19 03:10] LABS: Barbiturates NEGATIVE (NEGATIVE); Benzodiazepines NEGATIVE (NEGATIVE); Cocaine NEGATIVE (NEGATIVE); METHAMPHETAM NEGATIVE (NEGATIVE); Methadone NEGATIVE (NEGATIVE); Opiates NEGATIVE (NEGATIVE); Phencyclidine NEGATIVE (NEGATIVE); THC Cannibis NEGATIVE (NEGATIVE)
[2023-04-19 03:56] LABS: Protime INR 0.97
--- NOTE | 2023-04-19 04:21 | ER ---
Nurse's Notes [facility] Name: Amber Acosta Age: 77 yrs Sex: Female : 1945 Arrival Date: 04/19/2023 Time: 01:11 Bed 6 Private MD: Diagnosis: Weakness;Altered mental status, unspecified Presentation: 04/19 01:13 Chief complaint: EMS states: 77 year old female responds to name only. her son reports [facility] finding her on the floor, her son is concern of her slurred speech and generalized weakness. 01:13 Coronavirus screen: Vaccine status:. Ebola Screen: No symptoms or risks identified at [facility] this time. Initial Sepsis Screen: Does the patient meet any 2 criteria? No. Patient's initial sepsis screen is negative. Does the patient have a suspected source of infection? No. Patient's initial sepsis screen is negative. Risk Assessment: Do you want to hurt yourself or someone else? Patient reports no desire to harm self or others. Onset of symptoms was April 19, 2023. 01:13 Method Of Arrival: EMS: [place] [id number] 01:13 Acuity: IVETTE 3 1 Triage Assessment: 01:13 General: Appears unkempt, Behavior is cooperative. Pain: Unable to use pain scale. [facility] FLACC scale score is 0 out of 10. Neuro: Level of Consciousness is awake, Oriented to person, Moves all extremities. Reports weakness generalized. Cardiovascular: Patient's skin is warm and dry. Respiratory: Airway is patent Respiratory effort is even, unlabored, Respiratory pattern is regular, symmetrical. GI: No signs and/or symptoms were reported involving the gastrointestinal system. : No signs and/or symptoms were reported regarding the genitourinary system. Derm: Skin is normal. Musculoskeletal: Circulation, motion, and sensation intact. Historical: - Allergies: 01:21 Bees; ha1 01:21 Codeine; ha1 01:21 hydrocodone bitartrate; ha1 01:21 Iodinated Contrast Media - IV Dye; ha1 01:21 Levofloxacin; ha1 01:21 metronidazole; ha1 01:21 PENICILLINS; ha1 01:21 SHELLFISH; ha1 01:21 sulfamethoxazole; ha1 01:21 TRIMETHOPRIM; ha1 01:21 Wasps; ha1 - PMHx: 01:21 Alzheimers; Anxiety; CAD; CVA; Depression; Diabetes - NIDDM; GERD; High Cholesterol; ha1 Hypertension; kidney cancer; Migraines; - Immunization history:: Adult Immunizations unknown. - Social history:: Smoking status: unknown. Screenin:14 [facility] ED Fall Risk Assessment (Adult) History of falling in the last 3 months, rv including since admission Yes- physiologic fall (2 pts) Confusion or Disorientation Yes (5 pts) Impaired Gait Yes (1 pt) Score/Fall Risk Level 3 or more points = High Risk Oriented to surroundings, Maintained a safe environment, Educated pt \T\ family on fall prevention, incl call for assistance when getting out of bed, Assessed \T\ reinforced patient's understanding of fall precautions. Abuse screen: Denies threats or abuse. Denies injuries from another. Nutritional screening: No deficits noted. Tuberculosis screening: No symptoms or risk factors identified. Assessment: 01:13 Reassessment: see triage assessment. ha1 02:10 General: Appears comfortable, Behavior is cooperative. Neuro: Level of Consciousness is ha1 awake, obeys commands, Oriented to person, situation. Respiratory: Airway is patent Respiratory effort is even, unlabored, Respiratory pattern is regular, symmetrical. 03:10 Reassessment: Patient and/or family updated on plan of care and expected duration. Pain ha1 level reassessed. 04:33 Reassessment: No changes from previously documented assessment. tm6 04:33 Reassessment: family member updated. tm6 05:29 Reassessment: report attempted for 217. Charge is assigning nurse. Will call back in 15 tm6 min. 05:51 Reassessment: report attempted to Jose COVARRUBIAS. tm6 05:52 Reassessment: No changes from previously documented assessment. tm6 05:55 Reassessment: attempted to give report. ha1 Vital Signs: 01:13 BP 154 / 99; Pulse 83; Resp 17 S; Temp 98; Pulse Ox 94% on R/A; Weight 76.2 kg; Height ha1 5 ft. 5 in. ; 02:10 BP 145 / 89; Pulse 82; Resp 17 S; Pulse Ox 96% on 2 lpm NC; ha1 02:45 BP 119 / 78; Pulse 73; Resp 16 S; Pulse Ox 96% on 2 lpm NC; ha1 03:38 BP 145 / 77; Pulse 72; Resp 17 S; Pulse Ox 98% on 2 lpm NC; tm6 04:32 BP 128 / 73; Pulse 70; Resp 15; Pulse Ox 95% on 2 lpm NC; tm6 05:51 BP 124 / 75; Pulse 70; Pulse Ox 93% on 2 lpm NC; tm6 01:13 Body Mass Index 27.96 (76.20 kg, 165.1 cm) ha1 ED Course: 01:13 Patient arrived in ED. rv 01:14 Marcos Cintron PA is PHCP. cp 01:14 Marcos Pink MD is Attending Physician. cp 01:14 Patient has correct armband on for positive identification. Client placed on continuous rv cardiac and pulse oximetry monitoring. NIBP monitoring applied. cardiac monitor on. 01:14 No provider procedures requiring assistance completed. rv 01:20 Arm band placed on right wrist. tm6 01:21 Triage completed. ha1 01:38 Chest Single View XRAY In Process Unspecified. EDMS 01:40 Inserted saline lock: 22 gauge in right antecubital area, using aseptic technique. ha1 Blood collected. 01:57 CT Head C Spine In Process Unspecified. EDMS 02:44 Blood Culture Adult (2) Sent. ha1 02:44 CBC with Diff Sent. ha1 02:44 CMP Sent. ha1 02:44 Lactate w/ 2H reflex if indic. Sent. ha1 02:44 Protime (+inr) Sent. ha1 02:44 Ptt, Activated Sent. ha1 02:44 Urinalysis w/ reflexes Sent. ha1 02:52 Wilner Biggs, RN is Primary Nurse. tm6 04:19 Pillo Amaya is Hospitalizing Provider. cp 06:06 Provided Education on: need for admit. tm6 06:06 Patient admitted, IV remains in place. tm6 Administered Medications: 02:57 Drug: NS 0.9% IV 500 ml IV at 250 ml/hr continuous Route: IV; Rate: 250 ml/hr; Site: tm6 right antecubital; 05:56 Follow up: Response: No adverse reaction; IV Status: Completed infusion; IV Intake: ha1 500ml Medication: 01:14 VIS not applicable for this client. rv Intake: 05:56 IV: 500ml; Total: 500ml. ha1 Outcome: 04:20 Decision to Hospitalize by Provider. cp 05:30 Admitted to Med/surg accompanied by tech, room 217, with oxygen, with chart, tm6 05:30 Condition: stable 05:30 Instructed on the need for admit, 06:06 Admitted to Med/surg Report called to Jose COVARRUBIAS tm6 06:17 Patient left the ED. tm6 Signatures: Dispatcher [employer] EDMS Marcos Cintron PA PA cp Vicente, Ronaldo, RN RN Elenita Diehl RN RN ha1 Wilner Biggs RN RN tm6 Corrections: (The following items were deleted from the chart) 04:33 03:38 BP 145 / 77; Pulse 72bpm; Resp 17bpm; Spontaneous; Pulse Ox 98% RA; ha1 tm6
--- NOTE | 2023-04-19 04:21 | EDPHYS ---
Physician Documentation [facility] Name: Amber Acosta Age: 77 yrs Sex: Female : 1945 Arrival Date: 04/19/2023 Time: 01:11 Bed 6 Private MD: ED Physician Marcos Pink HPI: 04/19 01:17 This 77 yrs old Female presents to ER via Unassigned with complaints of Altered Mental cp Status. 01:17 The patient presents with confusion. Onset: The symptoms/episode began/occurred at an cp unknown time. Possible causes: CVA or TIA, head injury, found on ground by son approximately 30 minutes prior to arrival. Current symptoms: In the emergency department the patient's symptoms are unchanged from the initial presentation, despite EMS interventions. 01:17 Unknown last normal. cp Historical: - Allergies: 01:21 Bees; ha1 01:21 Codeine; ha1 01:21 hydrocodone bitartrate; ha1 01:21 Iodinated Contrast Media - IV Dye; ha1 01:21 Levofloxacin; ha1 01:21 metronidazole; ha1 01:21 PENICILLINS; ha1 01:21 SHELLFISH; ha1 01:21 sulfamethoxazole; ha1 01:21 TRIMETHOPRIM; ha1 01:21 Wasps; ha1 - PMHx: 01:21 Alzheimers; Anxiety; CAD; CVA; Depression; Diabetes - NIDDM; GERD; High Cholesterol; ha1 Hypertension; kidney cancer; Migraines; - Immunization history:: Adult Immunizations unknown. - Social history:: Smoking status: unknown. ROS: 01:20 Constitutional: Negative for fever, cp 01:20 Cardiovascular: Negative for chest pain, edema, cp 01:20 Respiratory: Negative for wheezing, 01:20 Abdomen/GI: Negative for vomiting, diarrhea, 01:20 Neuro: Positive for altered mental status, 01:20 Unable to obtain ROS due to altered mental status, Exam: 01:25 Constitutional: The patient appears in no acute distress, alert, awake, cp non-diaphoretic, non-toxic, well developed, well nourished, 01:25 Head/Face: Normocephalic, atraumatic. cp 01:25 Eyes: Periorbital structures: appear normal, Pupils: equal, round, and reactive to light and accomodation, Conjunctiva: normal, no exudate, no injection, Sclera: no appreciated abnormality, Lids and lashes: appear normal, bilaterally, :25 ENT: External ear(s): are unremarkable, Nose: is normal, Mouth: Lips: dry, Oral mucosa: moist, Posterior pharynx: Airway: no evidence of obstruction, patent, :25 Neck: ROM/movement: is normal, is supple, without pain, no range of motions limitations, no meningismus, :25 Chest/axilla: Inspection: normal, Palpation: is normal, no crepitus, no tenderness, cp :25 Cardiovascular: Rate: normal, Rhythm: regular, :25 Respiratory: the patient does not display signs of respiratory distress, Respirations: cp normal, no use of accessory muscles, no retractions, labored breathing, is not present, Breath sounds: are clear throughout, no decreased breath sounds, no stridor, no wheezing, :25 Abdomen/GI: Inspection: abdomen appears normal, Palpation: abdomen is soft and non-tender, in all quadrants, :25 Back: pain, is absent, ROM is normal, :25 Neuro: Orientation: to person, Mentation: able to follow commands, slow to respond, Motor: moves all fours, no focal deficits, :32 ECG was reviewed by the Attending Physician. Vital Signs: 01:13 BP 154 / 99; Pulse 83; Resp 17 S; Temp 98; Pulse Ox 94% on R/A; Weight 76.2 kg; Height ha1 5 ft. 5 in. ; 02:10 BP 145 / 89; Pulse 82; Resp 17 S; Pulse Ox 96% on 2 lpm NC; ha1 02:45 BP 119 / 78; Pulse 73; Resp 16 S; Pulse Ox 96% on 2 lpm NC; ha1 03:38 BP 145 / 77; Pulse 72; Resp 17 S; Pulse Ox 98% on 2 lpm NC; tm6 04:32 BP 128 / 73; Pulse 70; Resp 15; Pulse Ox 95% on 2 lpm NC; tm6 05:51 BP 124 / 75; Pulse 70; Pulse Ox 93% on 2 lpm NC; tm6 01:13 Body Mass Index 27.96 (76.20 kg, 165.1 cm) [facility] MDM: 01:20 Patient medically screened. [facility] 02:00 Differential Diagnosis: CVA, electrolyte abnormality, alcohol intoxication, cp intracranial bleed, pneumonia, sepsis, UTI, volume depletion. 04:15 Data reviewed: vital signs, nurses notes, lab test result(s), EKG, radiologic studies, cp CT scan, plain films. 04:15 Consideration of Admission/Observation Patient was admitted/placed on observation. cp Management of patient was discussed with the following: Hospitalist: Gayatri Shukla, [employer] DEPUTY SHERIFF will admit after discussion of results. Independent interpretation of the following test(s) in the Emergency Department EKG: See my EKG interpretation above. Care significantly affected by the following chronic conditions: Diabetes, Hypertension, Cancer. 04/19 01:17 Order name: Blood Culture Adult (2); Complete Time: 03:01 04/19 01:17 Order name: CBC with Diff; Complete Time: 03:36 04/19 03:36 Interpretation: Normal except: RBC 5.28; HGB 15.7; HCT 46.6. 04/19 01:17 Order name: CMP; Complete Time: 05:10 04/19 01:17 Order name: Lactate w/ 2H reflex if indic.; Complete Time: 03:36 04/19 03:36 Interpretation: Reviewed. 04/19 01:17 Order name: Protime (+inr); Complete Time: 04:13 04/19 04:13 Interpretation: Reviewed. 04/19 01:17 Order name: Ptt, Activated; Complete Time: 04:13 04/19 04:13 Interpretation: Reviewed. 04/19 01:17 Order name: Urinalysis w/ reflexes; Complete Time: 03:07 04/19 03:07 Interpretation: Reviewed. 04/19 01:17 Order name: Troponin High Sensitivity; Complete Time: 05:10 04/19 01:17 Order name: AMMONIA; Complete Time: 03:36 04/19 03:36 Interpretation: Reviewed. 04/19 01:21 Order name: ETOH Level; Complete Time: 03:07 04/19 03:07 Interpretation: Reviewed. 04/19 01:21 Order name: UDS; Complete Time: 03:36 04/19 03:36 Interpretation: Reviewed. 04/19 02:21 Order name: Glucose, Ancillary Testing; Complete Time: 03:07 EDMS 04/19 03:07 Interpretation: Reviewed. 04/19 02:24 Order name: Creatine Phosphokinase; Complete Time: 05:10 EDSC 04/19 02:24 Order name: NT PRO-BNP; Complete Time: 05:10 EDSC 04/19 02:24 Order name: Magnesium; Complete Time: 05:10 EDSC 04/19 05:06 Order name: Urinalysis w/ reflexes EDSC 04/19 05:06 Order name: CBC with Automated Diff EDSC 04/19 05:06 Order name: CBC with Automated Diff; Complete Time: 03:01 EDSC 04/19 05:06 Order name: Comprehensive Metabolic Panel [facility] 04/19 05:06 Order name: Comprehensive Metabolic Panel [facility] 04/19 05:06 Order name: Creatine Phosphokinase EDSC 04/19 05:06 Order name: Creatine Phosphokinase; Complete Time: 03:01 [facility] 04/19 05:06 Order name: Creatine Phosphokinase; Complete Time: 03:01 [facility] 04/19 05:06 Order name: Creatine Phosphokinase [facility] 04/19 05:06 Order name: Magnesium [facility] 04/19 05:06 Order name: Magnesium [facility] 04/19 05:06 Order name: Phosphorus [facility] 04/19 05:06 Order name: Phosphorus [facility] 04/19 01:17 Order name: Chest Single View XRAY; Complete Time: 03:01 04/19 01:17 Order name: CT Head C Spine; Complete Time: 03:01 04/19 01:17 Order name: EKG; Complete Time: 01:18 04/19 04:56 Order name: Social Service Consult [facility] 04/19 05:06 Order name: Patient Safety Orders [facility] 04/19 05:06 Order name: Physical Therapy Consult [facility] 04/19 01:17 Order name: Accucheck; Complete Time: 02:44 04/19 01:17 Order name: Cardiac monitoring; Complete Time: 01:37 04/19 01:17 Order name: Cath; Complete Time: 02:44 04/19 01:17 Order name: EKG - Nurse/Tech; Complete Time: 01:37 04/19 01:17 Order name: IV Saline Lock - Large Bore; Complete Time: 02:44 04/19 01:17 Order name: Labs collected and sent; Complete Time: 02:44 04/19 01:17 Order name: O2 Per Protocol; Complete Time: 01:38 cp 04/19 01:17 Order name: O2 Sat Monitoring; Complete Time: 01:38 cp 04/19 01:17 Order name: Vital Signs; Complete Time: 02:44 cp 04/19 02:37 Order name: Misc. Order: RECOLLECT BLUE TOP; Complete Time: 02:44 rv1 04/19 03:18 Order name: Misc. Order: RECOLLECT BLUE TOP; Complete Time: 03:38 rv1 EC:32 Rate is 83 beats/min. Rhythm is regular. IL interval is normal. QRS interval is normal. cp QT interval is normal. T waves are Inverted in leads aVL, aVR. Interpreted by me. Reviewed by me. Administered Medications: 02:57 Drug: NS 0.9% IV 500 ml IV at 250 ml/hr continuous Route: IV; Rate: 250 ml/hr; Site: tm6 right antecubital; 05:56 Follow up: Response: No adverse reaction; IV Status: Completed infusion; IV Intake: ha1 500ml Disposition Summary: 04/19/23 04:20 Hospitalization Ordered Notes: Hospitalization Status: Observation cp Provider: Pillo Amaya cp Location: Telemetry/MedSurg (observation) cp Condition: Stable cp Problem: new cp Symptoms: have improved cp Bed/Room Type: Standard cp Room Assignment: 217(04/19/23 05:19) kl Diagnosis - Weakness cp - Altered mental status, unspecified cp Forms: - Medication Reconciliation Form cp - SBAR form cp - Leadership Thank You Letter cp Signatures: Dispatcher [employer] EDMS Ting Rice RN RN kl Anderson, Corey, MD MD cha Page, Corey, PA PA cp Elenita Diehl RN RN 1 Liliane Pace 1 Wilner Biggs RN RN tm6 Corrections: (The following items were deleted from the chart) 02:24 01:31 CREATINE PHOSPHOKINASE+C.LAB.BRZ ordered. EDMS EDMS 02:24 01:31 MAGNESIUM+C.LAB.BRZ ordered. EDMS EDMS 02:24 01:31 PROBNP+C.LAB.BRZ ordered. EDMS EDMS 05:19 04:20 cp sumeet
--- NOTE | 2023-04-19 04:29 | P.HP ---
Certification for Inpatient With expected LOS: <2 Midnights Patient will require the following post-hospital care: Prison Practitioner: I am a practitioner with admitting privileges, knowledge of patient current condition, hospital course, and medical plan of care. Services: Services provided to patient in accordance with Admission requirements found in Title 42 Section 412.3 of the Code of Federal Regulations Patient History Date of Service: 04/19/23 Reason for admission: AMS, fall History of Present Illness: Ms. Acosta is a 77yo with a past medical history of dementia, hypertension, noninsulin diabetes, migraines, transient ischemic attacks. She was found on the floor of her Son's home, no known down time, no known mechanism. On arrival to the emergency department, she was oriented to person. No complaints. Her CT head and neck show no acute intracranial abnormality, fracture, subluxation, or acute finding. She does have severe multilevel degenerative changes. Chest xray clear, no acute changes. Allergies sulfamethoxazole [From Bactrim] Allergy (Severe, Verified 09/04/12 06:00) Anaphylaxis trimethoprim [From Bactrim] Allergy (Severe, Verified 09/04/12 06:00) Anaphylaxis venom-honey bee [bee venom (honey bee)] Allergy (Severe, Verified 08/21/11 21:55) Anaphylaxis ciprofloxacin [From Cipro] Allergy (Unknown, Verified 12/13/18 14:30) Unknown codeine [Codeine] Allergy (Verified 08/21/11 15:51) Hives metronidazole [From Flagyl] Allergy (Verified 12/13/18 13:54) Itching Penicillins Allergy (Verified 07/23/18 18:23) Unknown Shellfish Adverse Reaction (Intermediate, Verified 08/21/11 21:55) Nausea/Vomiting levofloxacin [From Levaquin] Adverse Reaction (Verified 08/21/11 21:53) Itching/Hives/Rash Bees Allergy (Uncoded 07/27/15 16:19) Unknown codeine Allergy (Uncoded 06/05/14 02:04) Hives/Rash PCN Allergy (Uncoded 10/17/14 18:15) Unknown Wasps Allergy (Uncoded 07/27/15 16:19) Unknown Home medications list reviewed: Yes Home Medications: Amlodipine [Norvasc*] 10 mg PO DAILY 08/12/19 Aspirin Enteric Coated [Ecotrin*] 325 mg PO DAILY 08/12/19 Atorvastatin Calcium [Lipitor*] 20 mg PO BEDTIME 08/12/19 Donepezil [Aricept*] 5 mg PO DAILY 08/12/19 Doxazosin [Cardura*] 2 mg PO DAILY 08/12/19 Eszopiclone [Lunesta*] 3 mg PO BEDTIME PRN 08/12/19 Gabapentin [Neurontin*] 100 mg PO BID 08/12/19 LORazepam [Ativan*] 1 mg PO TID PRN 08/12/19 Metformin ER [Glucophage ER*] 500 mg PO BID 08/12/19 Metoprolol Tartrate [Lopressor*] 50 mg PO BID 08/12/19 Pantoprazole [Protonix Tab*] 20 mg PO DAILY 08/12/19 Venlafaxine HCl [Effexor*] 75 mg PO DAILY 08/12/19 - Past Medical/Surgical History Diabetic: Yes -: Migraine headache -: HTN -: History of CVA -: Anxiety -: Hyperlipidemia -: Diverticulosis -: Diabetes mellitus type 2 [id number] -: Dementia -: HYSTERECTOMY -: RENAL SX Psychosocial/ Personal History: Patient lives with son - Family History Mother -: Lung disease, Cancer Father -: Heart disease, Hypertension Notes: CAD Brother -: Heart disease, Hypertension Notes: TRIPLE BYPASS - Social History Smoking Status: Former smoker Alcohol use: No CD- Drugs: No Caffeine use: Yes Place of Residence: Home Review of Systems 10-point ROS is otherwise unremarkable General: Weakness, Malaise Neurological: Weakness, Confusion, As per HPI Physical Examination - Physical Exam General: In no apparent distress, Other (sleeping with eyes closed, ecchymosis to bilateral lids noted) HEENT: Normocephalic Neck: 2+ carotid pulse no bruit, JVD not distended Respiratory: Clear to auscultation bilaterally Cardiovascular: No edema Capillary refill: <2 Seconds Gastrointestinal: Normal bowel sounds, Soft and benign Musculoskeletal: No clubbing Integumentary: No rashes Neurological: Other (Oriented x person in ED), Dementia External genitalia: Deferred Rectal: Deferred - Studies Laboratory Data (last 24 hrs) 04/19/23 04/19/23 04/19/23 03:30 02:08 01:30 WBC 8.40 Hgb 15.7 H Hct 46.6 H Plt Count 195 PT 10.7 INR 0.97 APTT 23.4 L Magnesium Cancelled Assessment and Plan - Problems (Diagnosis) (1) AMS (altered mental status) Current Visit: Yes Status: Acute Plan: Neurochecks [id number], monitor vital signs, continue home medications social services director consult [place] and replenish electrolytes (2) Fall Current Visit: Yes Status: Acute Plan: physical therapy consult Monitor CPK and renal function (3) Hypertension Current Visit: Yes Status: Acute Plan: Continue home medications as appropriate - Advance Directives Does patient have a Living Will: No Does patient have a Durable POA for Healthcare: No
[2023-04-19 04:35] LABS: Albumin 3.5 g/dL (3.4-5.0); Bilirubin Total 0.5 mg/dL (0.2-1.0); Magnesium 2.1 mg/dL (1.6-2.4); Potassium 3.9 mEq/L (3.5-5.1); Protein, Total 7.2 g/dL (6.4-8.2); Troponin High Sensitivity 19.8 pg/mL (<58.9)
[2023-04-19 06:44] VITALS: BMI 27.8
[2023-04-19] MEDS: INSULIN REGULAR (HUMAN) 100 UNIT/ML SQ SCH ×4 (07:30→21:00)
[2023-04-19] MEDS: HEPARIN 5000 UNIT/ML 1 ML VIAL SQ SCH ×2 (12:21→18:07)
--- NOTE | 2023-04-19 13:19 | EKG ---
Test Date: 2023-04-19 Test Time: 01:27:33 Private Pilot: [employer]ER MEASUREMENT RESULTS: Intervals: Rate: 83 MT: 146 QRSD: 70 QT: 382 QTc: 448 [place]: P: 56 MT: 146 QRS: 13 T: 110 INTERPRETIVE STATEMENTS: Normal sinus rhythm Nonspecific T wave abnormality Abnormal ECG Compared to ECG 11/23/2022 03:30:00 T-wave abnormality now present ST (T wave) deviation no longer present Possible ischemia no longer present Electronically Signed On 04-19-23 13:18:08 EXPERIMENTAL WORKER by Nando Kelley
--- NOTE | 2023-04-19 13:21 | RAD REPORT ---
EXAM DESCRIPTION: CT - Head C Spine Mpr Wo Con - 04/19/2023 6:44 am CLINICAL HISTORY: Fall;Mental status change COMPARISON: 07/27/2022 TECHNIQUE: Axial CT of the head obtained from the skull apex to the skull base without contrast. Axi al CT images of the cervical spine obtained without contrast. This exam was performed according to [facility] departmental dose-optimization program, which includes automated exposure control, adjustment of th e mA and/or kV according to patient size and/or use of iterative reconstruction technique. FINDINGS: Head CT: No acute intracranial hemorrhage identified. No mass, mass effect, shift of the midline, abnormal ext ra-axial fluid collection or CT evidence of acute ischemic change identified. The ventricular system and sulcal spaces are mildly enlarged compatible with mild cerebral atrophy. Confluent areas of hyp odensity throughout the supratentorial white matter are nonspecific and may be related to chronic sma ll vessel ischemic change. Left basal ganglia encephalomalacia compatible with remote infarction. The visualized paranasal sinuses and the mastoids are clear. No skull fracture identified. Visualiz ed orbits and globes are unremarkable. Atherosclerotic calcification of the intracranial internal car otid and vertebral arteries. Cervical CT : Straightening of the cervical lordosis may be secondary to patient positioning. The atlantoaxial, a tlantodental, and occipitoatlantal intervals are preserved. No fracture identified. Vertebral body height preserved. Prevertebral soft tissues are unremarkable. [id number] multilevel loss of intervertebral disc height with endplate spondylosis, facet arthr opathy, and uncovertebral spurring. Posterior disc osteophyte complex at multiple levels mild to mode rately encroach upon the anterior spinal canal, most prominent at C4/5 and C5/6. Mild neural foramina l narrowing. Visualized skull base is intact. Visualized mastoid air cells and paranasal sinuses are well aerat ed. Visualized thyroid is unremarkable. No cervical lymphadenopathy. No pneumothorax in the visualized lung apices. IMPRESSION: 1. No acute intracranial abnormality by CT criteria. 2. No acute fracture or subluxation of the cervical spine. 3. Severe multilevel degenerative change of the cervical spine. Electronically signed by: Kain Barahona DO 04/19/2023 02:57 AM EVENT PLANNER M Due to temporary technical issues with the PACS/Fluency reporting system, reports are being signed by the in house radiologists without review as a courtesy to insure prompt reporting. The interpreting radiologist is fully responsible for the content of the report.
--- NOTE | 2023-04-19 13:52 | RAD REPORT ---
EXAM DESCRIPTION: RAD - Chest Single View - 04/19/2023 1:36 am CLINICAL HISTORY: Altered mental status TECHNIQUE: Frontal view of the chest. COMPARISON: XR Chest dated 11/23/2022 FINDINGS: Lungs: Unremarkable. No consolidation. Pleural space: Unremarkable. No pneumothorax. Heart: Unremarkable. No cardiomegaly. Mediastinum: Unremarkable. Normal mediastinal contour. Bones/joints: Unremarkable. No acute fracture. Upper abdomen: Stable elevation right hemidiaphragm. IMPRESSION: No acute disease. Electronically signed by: Mikaela Pardo MD 04/19/2023 02:37 AM LEAD JANITOR Due to temporary technical issues with the PACS/Fluency reporting system, reports are being signed by the in house radiologists without review as a courtesy to insure prompt reporting. The interpreting radiologist is fully responsible for the content of the report.
[2023-04-19] MEDS: clonazePAM 0.5 MG TAB PO SCH (23:33)
[2023-04-19] MEDS: QUETIAPINE 25 MG TAB PO SCH (23:34)
[2023-04-20] MEDS: HEPARIN 5000 UNIT/ML 1 ML VIAL SQ SCH ×3 (01:00→16:51)
[2023-04-20 02:27] LABS: Absolute Lymphocytes (CBC) 1.8 K/uL (0.7-4.9); Hematocrit 40.6 % (36.0-45.0); Lymphocytes % 24.9 % (15.3-44.8); MCV 88.1 fL (80-100); MPV 9.5 fL (7.6-11.3); Platelets 196 thou/uL (152-406)
[2023-04-20 03:00] LABS: Albumin 3.1 g/dL (3.4-5.0); Bilirubin Total 0.5 mg/dL (0.2-1.0); Magnesium 1.9 mg/dL (1.6-2.4); Phosphorus 3.3 mg/dL (2.5-4.9); Potassium 3.5 mEq/L (3.5-5.1); Protein, Total 6.4 g/dL (6.4-8.2)
[2023-04-20] MEDS: INSULIN REGULAR (HUMAN) 100 UNIT/ML SQ SCH ×4 (07:30→21:00)
--- NOTE | 2023-04-20 07:42 | P.PN ---
Subjective Date of Service: 04/20/23 <Russ Weinstein - Last Filed: 04/20/23 16:57> Date of Service: 04/20/23 Chief Complaint: AMS, fall AO x1, hx dementia, climbing out of bed, fall risk, reports mild low back pain - Physical Exam General: In no apparent distress, reports low back pain, HEENT: Normocephalic Neck: 2+ carotid pulse no bruit, JVD not distended Respiratory: Clear to auscultation bilaterally Cardiovascular: No edema Capillary refill: <2 Seconds Gastrointestinal: Normal bowel sounds, Soft and benign Musculoskeletal: No clubbing Integumentary: No rashes Neurological: Other (Oriented x2, Dementia <RiccardoRadha - Last Filed: 04/20/23 18:12> Review of Systems per HPI <RiccardoRadha - Last Filed: 04/20/23 18:12> Physical Examination - Vital Signs Temperature: 97.0 F Blood Pressure: 148/71 Pulse: 71 Respirations: 18 Pulse Ox (%): 97 <MichelanjelRadha Last Filed: 04/20/23 18:12> Assessment And Plan Physician Review: Patient Assessed, Agree with Above Assessment and Plan Physician Review Additional Text: It appears that she began having intermittent episodes of agitation/confusion today. Will obtain CT head. Per family, this is worse than her baseline. Will obtain Neurology consultation for further evaluation. Russ Weinstein M.D. <Russ Weinstein - Last Filed: 04/20/23 16:57> - Plan Problems (Diagnosis) Fall Degenerative disc disease patient found on floor by son, physical therapy consult Monitor CPK and renal function CK243, 206, 177 PT eval for dynamic standing balance, unsteady gait, uneven stride, CT - Head C Spine Mpr Wo Con IMPRESSION: 1. No acute intracranial abnormality by CT criteria. 2. No acute fracture or subluxation of the cervical spine. 3. Severe multilevel degenerative change of the cervical spine. EKGNormal sinus rhythm Nonspecific T wave abnormality Abnormal ECG Compared to ECG 11/23/2022 03:30:00 CXR MPRESSION: No acute disease. Acute kidney injury BUN 23 creatinine 0.91 unknown baseline estimated GFR 64 Dementia hypertension hyperlipidemia, insulin-dependent diabetes mellitus migraines HX TIA, CVA anxiety, HXdiverticulosis, degenerative joint disease Continue home medications as appropriate Diet cardiac Full Code DVT Disposition, she can return on HH or if she needs SNF. Sw stated pending PT evaluation and recommendations at this time. Sw stated will follow up once Evaluation is completed. Discharge Plan: Home - Code Status/Comfort Care Code Status: Full Code Critical Care: No Time Spent Managing PTS Care (In Minutes): 35 <Radha Gu - Last Filed: 04/20/23 18:12>
[2023-04-20] MEDS ORDERED: clonazePAM 1 MG TAB PO ONE (16:34)
[2023-04-20] MEDS ORDERED: LORazepam 2 MG/ML VIAL IV ONE ×2 (17:36→17:41)
[2023-04-20] MEDS: clonazePAM 0.5 MG TAB PO SCH (21:02)
[2023-04-20] MEDS: QUETIAPINE 25 MG TAB PO SCH (21:02)
[2023-04-21] MEDS: HEPARIN 5000 UNIT/ML 1 ML VIAL SQ SCH ×3 (01:00→17:26)
[2023-04-21] MEDS: INSULIN REGULAR (HUMAN) 100 UNIT/ML SQ SCH ×4 (07:30→21:00)
--- NOTE | 2023-04-21 07:37 | P.PN ---
Subjective Date of Service: 04/21/23 Chief Complaint: AMS, fall AO x1, hx dementia, report by nurse, she ate breakfast, sleeping this time, arouses to verbal stimuli - Physical Exam General: In no apparent distress, confused HEENT: Normocephalic Neck: 2+ carotid pulse no bruit, JVD not distended Respiratory: Clear to auscultation bilaterally Cardiovascular: No edema Capillary refill: <2 Seconds Gastrointestinal: Normal bowel sounds, Soft and benign Musculoskeletal: No clubbing Integumentary: No rashes Neurological: Other (Oriented x2, Dementia <Radha Gu - Last Filed: 04/21/23 15:14> Date of Service: 04/21/23 <Russ Weinstein - Last Filed: 04/21/23 18:27> Review of Systems per HPI <Radha Gu - Last Filed: 04/21/23 15:14> Physical Examination - Vital Signs Temperature: 97.8 F Blood Pressure: 162/82 Pulse: 108 Respirations: 93 Pulse Ox (%): 96 <Radha Gu - Last Filed: 04/21/23 15:14> Assessment And Plan - Plan Problems (Diagnosis) Fall Degenerative disc disease patient found on floor by son, physical therapy consult Monitor CPK and renal function CK243, 206, 177 PT eval for dynamic standing balance, unsteady gait, uneven stride, CT - Head C Spine Mpr Wo Con IMPRESSION: 1. No acute intracranial abnormality by CT criteria. 2. No acute fracture or subluxation of the cervical spine. 3. Severe multilevel degenerative change of the cervical spine. EKGNormal sinus rhythm Nonspecific T wave abnormality Abnormal ECG Compared to ECG 11/23/2022 03:30:00 CXR MPRESSION: No acute disease. Neurology consulted for confusion. Acute kidney injury BUN 23 creatinine 0.91 unknown baseline estimated GFR 64 Dementia hypertension hyperlipidemia, insulin-dependent diabetes mellitus migraines HX TIA, CVA anxiety, HXdiverticulosis, degenerative joint disease Continue home medications as appropriate Diet cardiac Full Code DVT Disposition, per son she can return on HH or if she needs SNF. Sw stated pending PT evaluation and recommendations at this time. Sw stated will follow up once Evaluation is completed. Patient would prob benefit for placement memory care unit for dementia for saftety, she wants to leave, ambulate in [place], climb out of bed, She has dirt on face, eye lids, feet, unkept unsure if she refuses baths at home - Code Status/Comfort Care Code Status: Full Code Critical Care: No Time Spent Managing PTS Care (In Minutes): 35 <Radha Gu - Last Filed: 04/21/23 15:14> Physician Review: Patient Assessed, Agree with Above Assessment and Plan Physician Review Additional Text: No issues overnight. She would benefit from continued group home services vs memory care unit. Appreciate window caser's assistance with placement. Russ Weinstein MD <Russ Weinstein - Last Filed: 04/21/23 18:27>
--- NOTE | 2023-04-21 09:39 | RAD REPORT ---
EXAM DESCRIPTION: CT - Head Brain Wo Cont - 04/21/2023 9:20 am CLINICAL HISTORY: Alteration of awareness/confusion COMPARISON: April 19, 2023 TECHNIQUE: Computed axial tomography of the head was obtained. IV contrast was not requested. All CT scans are performed using dose optimization technique as appropriate and may include automated exposure control or mA/KV adjustment according to patient size. FINDINGS: An intracranial bleed is not seen The ventricles are normal in caliber No extra-axial fluid collection is noted. Bold left basal ganglia/left internal capsule infarction Mild to moderate low-density areas within periventricular, deep and subcortical white matter likely r epresent ischemic changes secondary to small vessel disease. Fluid within the sinuses/ mastoids is not seen. IMPRESSION: No acute intracranial abnormality is seen If patient's symptoms persist MRI of the brain would be recommended
[2023-04-21] MEDS ORDERED: PNEUMOCOCCAL VACCINE 0.5 ML IMVAC ONE (15:00)
[2023-04-21] MEDS: clonazePAM 0.5 MG TAB PO SCH (20:43)
[2023-04-21] MEDS: QUETIAPINE 25 MG TAB PO SCH (20:44)
[2023-04-22] MEDS: HEPARIN 5000 UNIT/ML 1 ML VIAL SQ SCH ×3 (01:00→17:04)
[2023-04-22 04:04] LABS: Absolute Lymphocytes (CBC) 1.6 K/uL (0.7-4.9); Hematocrit 43.6 % (36.0-45.0); Lymphocytes % 23.5 % (15.3-44.8); MCV 88.4 fL (80-100); MPV 9.2 fL (7.6-11.3); Platelets 189 thou/uL (152-406); RBC Red Blood Cell Count 4.93 M/uL (3.86-4.86)
[2023-04-22 04:25] LABS: Albumin 3.1 g/dL (3.4-5.0); Bilirubin Total 0.4 mg/dL (0.2-1.0); Potassium 3.6 mEq/L (3.5-5.1); Protein, Total 6.8 g/dL (6.4-8.2)
[2023-04-22] MEDS: INSULIN REGULAR (HUMAN) 100 UNIT/ML SQ SCH ×4 (07:30→21:00)
--- NOTE | 2023-04-22 07:59 | P.PN ---
Subjective Date of Service: 04/22/23 Chief Complaint: AMS, fall AO x1, hx dementia, no reported pain or fever - Physical Exam General: In no apparent distress, confused HEENT: Normocephalic Neck: 2+ carotid pulse no bruit, JVD not distended Respiratory: Clear to auscultation bilaterally Cardiovascular: No edema Capillary refill: <2 Seconds Gastrointestinal: Normal bowel sounds, Soft and benign Musculoskeletal: No clubbing Integumentary: No rashes Neurological: Other (Oriented x2, Dementia <Radha Gu - Last Filed: 04/22/23 12:37> Date of Service: 04/22/23 <Russ Weinstein - Last Filed: 04/22/23 16:53> Review of Systems per HPI <Radha Gu - Last Filed: 04/22/23 12:37> Physical Examination - Vital Signs Temperature: 98.2 F Blood Pressure: 125/67 Pulse: 83 Respirations: 16 Pulse Ox (%): 94 <Radha Gu - Last Filed: 04/22/23 12:37> Assessment And Plan - Plan Problems (Diagnosis) Fall Degenerative disc disease patient found on floor by son, physical therapy consult Monitor CPK and renal function CK243, 206, 177 Fall precautions, climbs out of bed, has to be redirected often PT eval for dynamic standing balance, unsteady gait, uneven stride, CT - Head C Spine IMPRESSION: 1. No acute intracranial abnormality by CT criteria. 2. No acute fracture or subluxation of the cervical spine. 3. Severe multilevel degenerative change of the cervical spine. EKGNormal sinus rhythm Nonspecific T wave abnormality Abnormal ECG Compared to ECG 11/23/2022 03:30:00 CXR MPRESSION: No acute disease. Neurology consulted for confusion. Acute kidney injury BUN 23 creatinine 0.91 unknown baseline estimated GFR 64 Dementia hypertension hyperlipidemia, insulin-dependent diabetes mellitus migraines HX TIA, CVA anxiety, HXdiverticulosis, degenerative joint disease Continue home medications as appropriate Diet cardiac Full Code DVT Disposition, Came from Home, son as caregiver. - Code Status/Comfort Care Code Status: Full Code Critical Care: No Time Spent Managing PTS Care (In Minutes): 35 <Radha Gu - Last Filed: 04/22/23 12:37> Physician Review: Patient Assessed, Agree with Above Assessment and Plan Physician Review Additional Text: No new changes. Per PT, she would benefit from a walker. Appreciate CM assistance. Russ Weinstein M.D. <Russ Weinstein - Last Filed: 04/22/23 16:53>
[2023-04-22] MEDS: QUETIAPINE 25 MG TAB PO SCH (19:34)
[2023-04-22] MEDS: clonazePAM 0.5 MG TAB PO SCH (19:35)
[2023-04-22] MEDS ORDERED: LORAZEPAM 1 MG TABLET PO PRN (21:40)
[2023-04-22] MEDS ORDERED: HALOPERIDOL LACT 5 MG/ML INJ IV PRN (21:41)
[2023-04-22] MEDS ORDERED: QUETIAPINE 25 MG TAB PO SCH (22:00)
[2023-04-22] MEDS: METOPROLOL TAR 50 MG TAB PO SCH (22:00)
[2023-04-23] MEDS: HEPARIN 5000 UNIT/ML 1 ML VIAL SQ SCH ×2 (00:29→09:00)
[2023-04-23] MEDS: INSULIN REGULAR (HUMAN) 100 UNIT/ML SQ SCH ×2 (07:30→11:30)
--- NOTE | 2023-04-23 07:40 | P.PN ---
Subjective Date of Service: 04/23/23 Chief Complaint: AMS, fall AO x2, hx dementia, no reported pain or fever, she request to dishcharge home today - Physical Exam General: In no apparent distress, confused HEENT: Normocephalic Neck: 2+ carotid pulse no bruit, JVD not distended Respiratory: Clear to auscultation bilaterally Cardiovascular: No edema Capillary refill: <2 Seconds Gastrointestinal: Normal bowel sounds, Soft and benign Musculoskeletal: No clubbing Integumentary: No rashes Neurological: Other (Oriented x2, Dementia Review of Systems PER HPI Physical Examination - Vital Signs Temperature: 97.7 F Blood Pressure: 154/56 Pulse: 76 Respirations: 18 Pulse Ox (%): 96 Assessment And Plan - Plan Problems (Diagnosis) Fall Degenerative disc disease patient found on floor by son, physical therapy consult Monitor CPK and renal function CK243, 206, 177 Fall precautions, climbs out of bed, has to be redirected often PT eval for dynamic standing balance, unsteady gait, uneven stride, CT - Head C Spine IMPRESSION: 1. No acute intracranial abnormality by CT criteria. 2. No acute fracture or subluxation of the cervical spine. 3. Severe multilevel degenerative change of the cervical spine. EKGNormal sinus rhythm Nonspecific T wave abnormality Abnormal ECG Compared to ECG 11/23/2022 03:30:00 CXR MPRESSION: No acute disease. Neurology consulted for confusion. Acute kidney injury BUN 23 creatinine 0.91 unknown baseline estimated GFR 64 Dementia hypertension hyperlipidemia, insulin-dependent diabetes mellitus migraines HX TIA, CVA anxiety, HXdiverticulosis, degenerative joint disease Continue home medications as appropriate Diet cardiac Full Code DVT Disposition, Came from Home, son as caregiver. Physician Review: Patient Assessed, Agree with Above Assessment and Plan
--- NOTE | 2023-04-23 07:42 | P.DS ---
Admission Date: 04/21/23 Discharge Date: 04/23/23 Reason for Admission: AMS, fall Brief History of Present Illness: Ms. Acosta is a 77yo with a past medical history of dementia, hypertension, noninsulin diabetes, migraines, transient ischemic attacks. She was found on the floor of her Son's home, no known down time, no known mechanism. On arrival to the emergency department, she was oriented to person. No complaints. Her CT head and neck show no acute intracranial abnormality, fracture, subluxation, or acute finding. She does have severe multilevel degenerative changes. Chest xray clear, no acute changes. - Physical Exam General: In no apparent distress, confused HEENT: Normocephalic Neck: 2+ carotid pulse no bruit, JVD not distended Respiratory: Clear to auscultation bilaterally Cardiovascular: No edema Capillary refill: <2 Seconds Gastrointestinal: Normal bowel sounds, Soft and benign Musculoskeletal: No clubbing Integumentary: No rashes Neurological: Other (Oriented x2, Dementia Hospital Course: Diet: ADA, low sodium Activity: Fall precautions Problems (Diagnosis) Fall Degenerative disc disease patient found on floor by son, physical therapy consult Monitor CPK and renal function CK243, 206, 177 improved Fall precautions, climbs out of bed, has to be redirected often PT eval for dynamic standing balance, unsteady gait, uneven stride, CT - Head C Spine IMPRESSION: 1. No acute intracranial abnormality by CT criteria. 2. No acute fracture or subluxation of the cervical spine. 3. Severe multilevel degenerative change of the cervical spine. EKGNormal sinus rhythm Nonspecific T wave abnormality Abnormal ECG Compared to ECG 11/23/2022 03:30:00 CXR MPRESSION: No acute disease. Neurology consulted for confusion. Dementia hypertension hyperlipidemia, insulin-dependent diabetes mellitus migraines HX TIA, CVA anxiety, HXdiverticulosis, degenerative joint disease Continue home medications as appropriate DME: Date Ordered: Name of Company: [employer] Services Needed: None Date or Referral: IMMUNIZATION Influenza Vaccine Indicated: Influenza Vaccine Given: Date Given: Pneumonia Vaccine Indicated: Pneumonia Vaccine Given: Date Given: INSTRUCTIONS: Physician Discharge Instructions: -DC IV and DC home -Follow-up with PCP in 1 to 2 weeks -Please call if any questions regarding hospital stay -Please call nursing station at [phone] if any nursing or medication questions -Return to the emergency room if symptoms worsen <Radha Gu - Last Filed: 04/23/23 12:51> Admission Date: 04/21/23 Discharge Date: 04/23/23 Hospital Course: Pt seen and examined. I agree with the note by the CHIEF OPERATOR [employer]. Ok to discharge pt <Danae Dorsey Pedro Luis - Last Filed: 04/23/23 19:10> Disposition: ROUTINE DISCHARGE Vital Signs/Physical Exam: Temp Pulse Resp BP Pulse Ox 97.7 F 76 18 154/56 H 96 04/23/23 07:41 04/23/23 07:41 04/23/23 07:41 04/23/23 07:41 04/23/23 07:41 Laboratory Data at Discharge: WBC 7.00 thou/uL (4.3-10.9) 04/22/23 03:51 Hgb 14.4 g/dL (12.0-15.0) 04/22/23 03:51 Hct 43.6 % (36.0-45.0) 04/22/23 03:51 Plt Count 189 thou/uL (152-406) 04/22/23 03:51 PT 10.7 SECONDS (9.5-12.5) 04/19/23 03:30 INR 0.97 04/19/23 03:30 APTT 23.4 SECONDS (24.3-36.9) L 04/19/23 03:30 Sodium 140 mEq/L (136-145) 04/22/23 03:51 Potassium 3.6 mEq/L (3.5-5.1) 04/22/23 03:51 BUN 16 mg/dL (7-18) 04/22/23 03:51 Creatinine 0.93 mg/dL (0.55-1.02) 04/22/23 03:51 Glucose 94 mg/dL (74-106) 04/22/23 03:51 Phosphorus 3.3 mg/dL (2.5-4.9) 04/20/23 01:31 Magnesium 2.0 mg/dL (1.6-2.4) 04/22/23 03:51 Total Bilirubin 0.4 mg/dL (0.2-1.0) 04/22/23 03:51 AST 23 U/L (15-37) 04/22/23 03:51 ALT 28 U/L (13-56) 04/22/23 03:51 Alkaline Phosphatase 66 U/L (45-117) 04/22/23 03:51 <MichelanjelOmegay - Last Filed: 04/23/23 12:51> Vital Signs/Physical Exam: Temp Pulse Resp BP Pulse Ox 97.8 F 83 18 139/76 93 04/23/23 12:00 04/23/23 12:00 04/23/23 12:00 04/23/23 12:00 04/23/23 12:00 Laboratory Data at Discharge: WBC 7.00 thou/uL (4.3-10.9) 04/22/23 03:51 Hgb 14.4 g/dL (12.0-15.0) 04/22/23 03:51 Hct 43.6 % (36.0-45.0) 04/22/23 03:51 Plt Count 189 thou/uL (152-406) 04/22/23 03:51 PT 10.7 SECONDS (9.5-12.5) 04/19/23 03:30 INR 0.97 04/19/23 03:30 APTT 23.4 SECONDS (24.3-36.9) L 04/19/23 03:30 Sodium 140 mEq/L (136-145) 04/22/23 03:51 Potassium 3.6 mEq/L (3.5-5.1) 04/22/23 03:51 BUN 16 mg/dL (7-18) 04/22/23 03:51 Creatinine 0.93 mg/dL (0.55-1.02) 04/22/23 03:51 Glucose 94 mg/dL (74-106) 04/22/23 03:51 Phosphorus 3.3 mg/dL (2.5-4.9) 04/20/23 01:31 Magnesium 2.0 mg/dL (1.6-2.4) 04/22/23 03:51 Total Bilirubin 0.4 mg/dL (0.2-1.0) 04/22/23 03:51 AST 23 U/L (15-37) 04/22/23 03:51 ALT 28 U/L (13-56) 04/22/23 03:51 Alkaline Phosphatase 66 U/L (45-117) 04/22/23 03:51 <Danae Dorsey Pedro Luis - Last Filed: 04/23/23 19:10> Diet: AHA Activity: Fall precautions Time spent managing pt's care (in minutes): 50 <Omega Guy - Last Filed: 04/23/23 12:51> <SunitaAnnewanda Cloud - Last Filed: 04/23/23 19:10> Home Medications: Amlodipine [Norvasc*] 10 mg PO DAILY 08/12/19 Atorvastatin Calcium [Lipitor*] 40 mg PO BEDTIME 08/12/19 Metoprolol Tartrate [Lopressor*] 50 mg PO DAILY 08/12/19 Clopidogrel Bisulfate [Plavix*] 75 mg PO DAILY 04/19/23 Lisinopril [Zestril] 10 mg PO DAILY 04/19/23 clonazePAM [Clonazepam] 1 mg PO DAILY 04/19/23 Metoprolol Tartrate [Lopressor*] 50 mg PO BID tab 04/23/23 clonazePAM [Klonopin*] 1 mg PO DAILY tab 04/23/23 Physician Discharge Instructions: PROBLEM: GOAL: Clear understanding of disease process INSTRUCTIONS: Physician Discharge Instructions: -DC IV and DC home -Follow-up with PCP in 1 to 2 weeks -Please call if any questions regarding hospital stay -Please call nursing station at [phone] if any nursing or medication questions -Return to the emergency room if symptoms worsen Diet: ADA, low sodium Activity: Fall precautions DME: Date Ordered: Name of Company: [employer] Services Needed: None Date or Referral: IMMUNIZATION Influenza Vaccine Indicated: Influenza Vaccine Given: Date Given: Pneumonia Vaccine Indicated: Pneumonia Vaccine Given: Date Given: Patient... Problems (Diagnosis) Fall Degenerative disc disease patient found on floor by son, physical therapy consult Monitor CPK and renal function CK243, 206, 177 Fall precautions, climbs out of bed, has to be redirected often PT eval for dynamic standing balance, unsteady gait, uneven stride, CT - Head C Spine IMPRESSION: 1. No acute intracranial abnormality by CT criteria. 2. No acute fracture or subluxation of the cervical spine. 3. Severe multilevel degenerative change of the cervical spine. EKGNormal sinus rhythm Nonspecific T wave abnormality Abnormal ECG Compared to ECG 11/23/2022 03:30:00 CXR MPRESSION: No acute disease. Neurology consulted for confusion. Acute kidney injury BUN 23 creatinine 0.91 unknown baseline estimated GFR 64 Dementia hypertension hyperlipidemia, insulin-dependent diabetes mellitus migraines HX TIA, CVA anxiety, HXdiverticulosis, degenerative joint disease Continue home medications as appropriate Followup: NONE,NONE [Primary Care Provider] -
[2023-04-23] MEDS ORDERED: CLOPIDOGREL 75 MG TABLET PO SCH (09:00)
[2023-04-23] MEDS ORDERED: clonazePAM 1 MG TAB PO SCH (09:00)
[2023-04-23] MEDS ORDERED: AMLODIPINE 10 MG TAB PO SCH (09:00)
[2023-04-23] MEDS: METOPROLOL TAR 50 MG TAB PO SCH (09:00)
[2023-04-23 14:05] VITALS: O2SAT 93
[2023-04-23 15:27] VITALS: BP 139/76; TEMP 97.8
[2023-04-23] MEDS ORDERED: ATORVASTATIN 20 MG TAB PO SCH (21:00)
== END 2023-04-23 16:30 | disposition home or self-care (01) | DRG 92 ==
LOC: ER 01:11 → ERHOLD 04:54 → 2ND 05:25 → OBSVTOIN 04-21 09:10 → 2ND 04-22 06:53
PROVIDERS: ADMIT Hospitalist; ATTEND Hospitalist
DX: R26.89 Other abnormalities of gait and mobility (principal); N17.9 Acute kidney failure, unspecified; M50.30 Other cervical disc degeneration, unspecified cervical region; I10 Essential (primary) hypertension; E11.9 Type 2 diabetes mellitus without complications; G43.909 Migraine, unspecified, not intractable, without status migrainosus; F41.9 Anxiety disorder, unspecified; E78.5 Hyperlipidemia, unspecified; K57.90 Diverticulosis of intestine, part unspecified, without perforation or abscess without bleeding; M19.90 Unspecified osteoarthritis, unspecified site; F03.90 Unspecified dementia, unspecified severity, without behavioral disturbance, psychotic disturbance, mood disturbance, and anxiety; W19.XXXA Unspecified fall, initial encounter; Z87.891 Personal history of nicotine dependence; Z86.73 Personal history of transient ischemic attack (TIA), and cerebral infarction without residual deficits
CPT/HCPCS: 36415; 70450; 71045; 72125; 80053; 80307; 81001; 82077; 82140; 82550; 82947; 83605; 83735; 83880; 84100; 84484; 85025; 85610; 85730; 87040; 93005; 96360; 96361; 97112; 97116; 97161; 97530; 99285; G0378; J1644; J7040

== ENCOUNTER 2023-10-09 09:27 | Emergency (ER) | payer OTHER ==
[2023-10-09] MEDS ORDERED: NA CHLORIDE 0.9% 1,000 ML ONE (10:47)
[2023-10-09 11:01] LABS: Absolute Basophils 0.1 K/uL (0-0.5); Absolute Eosinophils 0.2 K/uL (0-0.5); Absolute Lymphocytes (CBC) 1.5 K/uL (0.7-4.9); Absolute Monocytes 0.7 K/uL (0.1-1.3); Basophils % 0.9 % (0-1.3); Eosinophils % 2.6 % (0-4.4); Hemoglobin 14.8 g/dL (12.0-15.0); Lymphocytes % 19.7 % (15.3-44.8); MCHC 32.8 g/dL (32.0-36.0); MCV 88.5 fL (80-100); MPV 9.7 fL (7.6-11.3); Monocytes % 9.5 % (3.3-12.3); Neutrophils % 67.3 % (41.7-73.7); Platelets 180 thou/uL (152-406); RBC Red Blood Cell Count 5.09 M/uL (3.86-4.86); Red Cell Distribution Width 15.1 % (12.1-15.2)
[2023-10-09 11:18] LABS: Anion Gap 9.2 mEq/L (5.0-15.0); Troponin High Sensitivity 4.7 pg/mL (<58.9)
[2023-10-09 11:20] LABS: Potassium 4.2 mEq/L (3.5-5.1)
[2023-10-09 11:26] LABS: Specific Gravity 1.016 (1.005-1.030); Sqamous Epithelial <5 /HPF (None Seen); Urine Bacteria None Seen /HPF (<20); Urine Bilirubin NEGATIVE (Negative); Urine Blood Negative (Negative); Urine Clarity Clear (Clear); Urine Color Light-Yellow (Yellow); Urine Culture Reflex Order NOT NEEDED; Urine Glucose NEGATIVE (Negative); Urine Ketones NEGATIVE (Negative); Urine Micro Reflex YN NO BILL MICROSCOPIC; Urine Nitrite NEGATIVE (Negative); Urine Protein NEGATIVE (Negative); Urine RBC <5 /HPF (None Seen); Urine Urobilinogen Normal (Normal); Urine WBC None Seen /HPF (<5); Urine pH 5.5 (5.0-7.0)
[2023-10-09 12:10] VITALS: BP 165/95; TEMP 97.9; O2SAT 100
--- NOTE | 2023-10-09 14:11 | EKG ---
Test Date: 2023-10-09 Test Time: 10:55:37 Blueprint Engineer: JOAO MEASUREMENT RESULTS: Intervals: Rate: 59 MO: 134 QRSD: 82 QT: 402 QTc: 397 [place]: P: 69 MO: 134 QRS: 5 T: 80 INTERPRETIVE STATEMENTS: Sinus bradycardia Otherwise normal ECG Compared to ECG 09/22/2023 15:58:47 Sinus rhythm no longer present ST (T wave) deviation no longer present Electronically Signed On 10-09-23 14:10:20 CDT by Nando Kelley
--- NOTE | 2023-10-09 18:00 | EDPHYS ---
Physician Documentation [facility] Name: Amber Acosta Age: 77 yrs Sex: Female : 1945 Arrival Date: 10/09/2023 Time: 09:27 Bed 19 Private MD: ED Physician Dl Faith HPI: 10/08 10:06 This 77 yrs old Female presents to ER via Wheelchair with complaints of ec2 Confusion, Doesn't Feel Right. 10:06 Patient arrives today for evaluation of feeling unwell. Patient reports for the past ec2 several days she been having some bouts of nausea and diarrhea, decreased p.o. intake, decreased fluid intake. Reports no significant abdominal pain. Denies any urinary complaints. States that she generally feels unwell however cannot specifically describe what it is about it.. Historical: - Allergies: 10:00 Bees (Anaphylaxis); iw 10:00 Codeine; iw 10:00 hydrocodone bitartrate; iw 10:00 Iodinated Contrast Media - IV Dye; iw 10:00 Levofloxacin; iw 10:00 metronidazole; iw 10:00 PENICILLINS; iw 10:00 SHELLFISH; iw 10:00 TRIMETHOPRIM; iw 10:00 Wasps; iw 10:00 sulfamethoxazole; iw - PMHx: 10:00 Alzheimers; Anxiety; CAD; CVA; Depression; Diabetes - NIDDM; GERD; High Cholesterol; iw Hypertension; kidney cancer; Migraines; - Immunization history:: Adult Immunizations up to date. - Infectious Disease History:: Denies. - Social history:: Smoking status: Patient denies any tobacco usage or history of. ROS: 10:06 Constitutional: as per hpi ec2 Exam: 10:06 Constitutional: GEN: NAD Head: atraumatic Eyes: EOMI Ears: External ears are ec2 normal. CV: regular rate LUNGS: no respiratory distress ABD: non-distended, soft, nontender, no guarding, not rigid. SKIN: no evidence of rashes MSK: no evidence of trauma NEURO: moves all extremities equally Vital Signs: 10:01 BP 150 / 101; Pulse 70; Resp 17; Temp 97.9; Pulse Ox 97% on R/A; ll1 11:47 BP 165 / 95; Pulse 78; Resp 18; Pulse Ox 100% on R/A; mb9 MDM: 10:05 Patient medically screened. ec2 10:06 Data reviewed: vital signs. ED course: Patient arrives today for feeling unwell. ec2 Examination remarkable for well-appearing nontoxic dividual is in no acute distress with a reassuring examination. Will obtain lab work, urine studies. Differential diagnosis included dehydration, electrolyte disturbances, UTI.. 10:57 ED course: EKG obtained, independently reviewed and interpreted by me, shows normal ec2 sinus rhythm, rate of 59, no acute ST segment elevations, intervals are nonconcerning. . 11:35 ED course: Metabolic profile shows appropriate lecture lites, troponin within normal ec2 range, urine is noninfectious appearing. And reassess patient is well-appearing, no acute distress. Will discharge home with the patient follow-up with primary care doctor. Return precautions given. . 11:37 ED course: MDM: Differential diagnosis as documented above in ED course; All lab tests ec2 ordered and reviewed as documented above; Independent interpretation of tests: EKG as above; External records reviewed: Previous ED visit and associated lab work; . 10/08 10:05 Order name: Basic Metabolic Panel; Complete Time: 11:35 ec2 10/08 10:05 Order name: CBC with Diff; Complete Time: 11:05 ec2 10/08 10:05 Order name: Troponin HS; Complete Time: 11:35 ec2 10/08 10:05 Order name: UAM; Complete Time: 11:35 ec2 10/08 10:05 Order name: Cardiac monitoring; Complete Time: 11:10 ec2 10/08 10:05 Order name: EKG - Nurse/Tech; Complete Time: 10:47 ec2 10/08 10:05 Order name: IV Saline Lock; Complete Time: 10:47 ec2 10/08 10:05 Order name: Labs collected and sent; Complete Time: 10:47 ec2 10/08 10:05 Order name: O2 Per Protocol; Complete Time: 11:10 ec2 10/08 10:05 Order name: O2 Sat Monitoring; Complete Time: 11:10 ec2 Administered Medications: 10:50 Drug: NS 0.9% IV 1000 ml IV at 1 bolus Per protocol; 1000 mL bolus Route: IV; Rate: 1 jl7 bolus; Site: left hand; 11:40 Follow up: Response: No adverse reaction; IV Status: Completed infusion mb9 Disposition Summary: 10/09/23 11:36 Discharge Ordered Notes: Location: Home ec2 Condition: Stable ec2 Diagnosis - Disorientation, unspecified ec2 Followup: ec2 - With: Private Physician - When: - Reason: Re-evaluation by your physician Discharge Instructions: - Discharge Summary Sheet ec2 - Confusion ec2 Forms: - Medication Reconciliation Form ec2 - Antibiotic Education ec2 - Prescription Opioid Use ec2 - Patient Portal Instructions ec2 - Leadership Thank You Letter ec2 Signatures: Dispatcher [employer] Nicole Saul, MARCI RN iw Joel Tejada RN RN jl7 Annie Rice RN RN ll1 Dl Faith MD MD ec2 Reshma Carey RN mb9 Corrections: (The following items were deleted from the chart) 10:06 10:06 BASIC METABOLIC PANEL+C.LAB.BRZ ordered. EDMS EDMS 10:06 10:06 CBC+H.LAB.BRZ ordered. EDMS EDMS 10:06 10:06 Troponin High Sensitivity+C.LAB.BRZ ordered. EDMS EDMS 10:06 10:06 Urinalysis W/Microscopic+U.LAB.BRZ ordered. EDMS EDMS 11:35 10:05 Straight Cath ordered. ec2 mb9
--- NOTE | 2023-10-09 18:00 | ER ---
Nurse's Notes [facility] Name: Amber Acosta Age: 77 yrs Sex: Female : 1945 Arrival Date: 10/09/2023 Time: 09:27 Bed 19 Private MD: Diagnosis: Disorientation, unspecified Presentation: 10/08 10:00 Acuity: IVETTE 3 iw 10:01 Chief complaint: Patient states: Confusion and not feeling well for a couple day. + ll1 weakness, slight diarrhea. Coronavirus screen: Client denies travel out of the [place] in the last 14 days. At this time, the client does not indicate any symptoms associated with coronavirus-19. Ebola Screen: Patient denies travel to an Ebola-affected area in the 21 days before illness onset. Initial Sepsis Screen: Does the patient meet any 2 criteria? No. Patient's initial sepsis screen is negative. Does the patient have a suspected source of infection? No. Patient's initial sepsis screen is negative. Risk Assessment: Do you want to hurt yourself or someone else? Patient reports no desire to harm self or others. Onset of symptoms was October 07, 2023. 10:01 Method Of Arrival: Wheelchair ll1 Triage Assessment: 10:03 General: Appears uncomfortable, Behavior is calm, cooperative, appropriate for age, ll1 Reports feeling ill for fatigue for. Neuro: Reports confusion. GI: Reports cramping, diarrhea, nausea. Historical: - Allergies: 10:00 Bees (Anaphylaxis); iw 10:00 Codeine; iw 10:00 hydrocodone bitartrate; iw 10:00 Iodinated Contrast Media - IV Dye; iw 10:00 Levofloxacin; iw 10:00 metronidazole; iw 10:00 PENICILLINS; iw 10:00 SHELLFISH; iw 10:00 TRIMETHOPRIM; iw 10:00 Wasps; iw 10:00 sulfamethoxazole; iw - PMHx: 10:00 Alzheimers; Anxiety; CAD; CVA; Depression; Diabetes - NIDDM; GERD; High Cholesterol; iw Hypertension; kidney cancer; Migraines; - Immunization history:: Adult Immunizations up to date. - Infectious Disease History:: Denies. - Social history:: Smoking status: Patient denies any tobacco usage or history of. Screenin:13 [facility] ED Fall Risk Assessment (Adult) History of falling in the last 3 months, mb9 including since admission No falls in past 3 months (0 pts) Confusion or Disorientation No (0 pts) Intoxicated or Sedated No (0 pts) Impaired Gait No (0 pts) Mobility Assist Device Used No (0 pt) Altered Elimination No (0 pt) Score/Fall Risk Level 0 - 2 = Low Risk Oriented to surroundings, Maintained a safe environment, Educated pt \T\ family on fall prevention, incl call for assistance when getting out of bed. Abuse screen: Denies threats or abuse. Nutritional screening: No deficits noted. Tuberculosis screening: No symptoms or risk factors identified. Assessment: 11:12 General: Appears in no apparent distress. Behavior is calm, cooperative. Pain: Denies mb9 pain. Neuro: Nava Agitation-Sedation Scale (RASS): 0 - Alert and Calm Level of Consciousness is awake, alert, obeys commands, Oriented to person, place, time, situation, Appropriate for age. Cardiovascular: Heart tones S1 S2 present. Respiratory: Airway is patent Respiratory effort is even, unlabored, Respiratory pattern is regular, symmetrical, Breath sounds are clear bilaterally. GI: Abdomen is round non-distended, Bowel sounds present X 4 quads. Abd is soft and non tender X 4 quads. Reports diarrhea. : No signs and/or symptoms were reported regarding the genitourinary system. EENT: No signs and/or symptoms were reported regarding the EENT system. Derm: Skin is pink, warm \T\ dry. Musculoskeletal: Range of motion: intact in all extremities. Vital Signs: 10:01 BP 150 / 101; Pulse 70; Resp 17; Temp 97.9; Pulse Ox 97% on R/A; ll1 11:47 BP 165 / 95; Pulse 78; Resp 18; Pulse Ox 100% on R/A; mb9 ED Course: 09:33 Patient arrived in ED. im 09:50 Dl Faith MD is Attending Physician. ec2 10:00 Triage completed. iw 10:03 Arm band placed on. ll1 10:15 Missed attempt(s): 24 gauge in right forearm. bc6 10:47 Basic Metabolic Panel Sent. bc6 10:47 CBC with Diff Sent. bc6 10:47 Troponin HS Sent. bc6 10:48 Initial lab(s) drawn, by me, sent to lab. Inserted saline lock: 24 gauge in left hand, bc6 using aseptic technique. Blood collected. 11:00 Reshma Carey, RN is Primary Nurse. mb9 11:13 Placed in gown. Bed in low position. Call light in reach. Side rails up X 1. Provided mb9 Education on: press call light if needing anything. Client placed on continuous cardiac and pulse oximetry monitoring. NIBP monitoring applied. ekg monitor tech on. 11:39 No provider procedures requiring assistance completed. IV discontinued, intact, mb9 bleeding controlled, No redness/swelling at site. Pressure dressing applied. Administered Medications: 10:50 Drug: NS 0.9% IV 1000 ml IV at 1 bolus Per protocol; 1000 mL bolus Route: IV; Rate: 1 jl7 bolus; Site: left hand; 11:40 Follow up: Response: No adverse reaction; IV Status: Completed infusion mb9 Medication: 11:13 VIS not applicable for this client. mb9 Outcome: 11:36 Discharge ordered by . ec2 11:39 Discharged to home ambulatory, mb9 11:39 Condition: stable 11:39 Discharge instructions given to patient, Instructed on discharge instructions, follow up and referral plans. Demonstrated understanding of instructions, follow-up care, 11:47 Patient left the ED. mb9 Signatures: Nicole Lo, Joel Faulkner RN, RN RN jl7 Annie Rice RN RN ll1 Reshma Carey, RN RN mb9 Christine Plata bc6 Lorrie Bay Edwin, MD MD ec2
== END 2023-10-09 11:47 | disposition home or self-care (01) ==
LOC: ER 09:27
DX: R41.0 Disorientation, unspecified (principal); R19.7 Diarrhea, unspecified; R11.0 Nausea
CPT/HCPCS: 93005; 85025; 81001; 80048; 36415; 84484; J7030; 96360; 99285

== ENCOUNTER 2023-10-31 12:34 | Emergency (ER) | payer OTHER ==
[2023-10-31] MEDS ORDERED: ONDANSETRON 4 MG/2 ML VIAL ONE (12:52)
[2023-10-31] MEDS ORDERED: NA CHLORIDE 0.9% 1,000 ML ONE (12:52)
[2023-10-31] MEDS ORDERED: NA CHLORIDE 0.9% 500 ML ONE (12:52)
[2023-10-31 13:17] LABS: Absolute Basophils 0.1 K/uL (0-0.5); Absolute Eosinophils 0.2 K/uL (0-0.5); Absolute Lymphocytes (CBC) 3.5 K/uL (0.7-4.9); Absolute Neutrophil 4.7 K/uL (1.8-8.0); Basophils % 0.6 % (0-1.3); Eosinophils % 2.1 % (0-4.4); Hematocrit 51.3 % (36.0-45.0); Hemoglobin 16.6 g/dL (12.0-15.0); Lymphocytes % 37.2 % (15.3-44.8); MCH 29.1 pg (27.0-35.0); MCHC 32.4 g/dL (32.0-36.0); MCV 89.8 fL (80-100); MPV 10.5 fL (7.6-11.3); Monocytes % 10.4 % (3.3-12.3); Neutrophils % 49.7 % (41.7-73.7); Platelets 192 thou/uL (152-406); RBC Red Blood Cell Count 5.72 M/uL (3.86-4.86); Red Cell Distribution Width 14.7 % (12.1-15.2)
[2023-10-31 13:23] LABS: PT Prothrombin Time 11.4 SECONDS (9.4-12.5); Protime INR 1.04
--- NOTE | 2023-10-31 13:36 | RAD REPORT ---
EXAM DESCRIPTION: RAD - Chest Single View - 10/31/2023 1:17 pm CLINICAL HISTORY: COUGH COMPARISON: Chest Single View dated 09/22/2023; Chest Single View dated 04/29/2023; Chest Single View da yossi 04/19/2023; Chest Single View dated 11/23/2022 FINDINGS: Lines: None. Lungs: No evidence of edema or pneumonia. Pleural: No significant pleural effusions or pneumothorax. Cardiac: The heart size is within normal limits. Mediastinum: Within normal limits. Bones: No acute fractures. Other: None IMPRESSION: No acute cardiopulmonary disease.
[2023-10-31] MEDS ORDERED: LABETALOL 20 MG/4ML SYRINGE IV ONE ×3 (13:40→14:45)
--- NOTE | 2023-10-31 13:45 | RAD REPORT ---
EXAM DESCRIPTION: CT - Head C Spine Cap Wo Con - 10/31/2023 1:11 pm CLINICAL HISTORY: SYNCOPE COMPARISON: Head C Spine Cap Wo Con dated 08/12/2019; Head Brain Wo Cont dated 09/22/2023; Head Brain W o Cont dated 04/29/2023; Head angio dated 04/29/2023 TECHNIQUE: CT head without contrast. CT cervical spine without contrast with coronal and sagittal reformatted images. CT chest, abdomen and pelvis with coronal and sagittal reformatted images of the spine. All CT scans are performed using dose optimization technique as appropriate and may include automated exposure control or mA/KV adjustment according to patient size. FINDINGS: CT HEAD WITHOUT CONTRAST: No intracranial hemorrhage, hydrocephalus or extra-axial fluid collection. No acute large vascular te rritory infarct. At least moderate chronic small vessel ischemic changes. Age advanced cerebral atrop hy. Remote right occipital lobe infarct. Remote appearing left basal ganglia lacunar infarct. The paranasal sinuses and mastoids are clear. The calvarium is intact. CT CERVICAL SPINE WITHOUT CONTRAST: No fracture or subluxation. The prevertebral soft tissues are normal in thickness.Multilevel degenerative changes are present in the spine. Multilevel cervical spondylosis with varying degrees of neural foraminal narrowing. Revers al of the normal cervical lordosis. Approximately 2 millimeters anterolisthesis present of C4 on C5. CT CHEST, ABDOMEN, PELVIS: Thorax: Chest Wall: No abnormal mass Lungs: No acute abnormality. Pleura: No effusions or pneumothorax. Jessie/Mediastinum: No lymphadenopathy. Small hiatal hernia. Aorta/Pulmonary Arteries: Unremarkable Heart: Normal size. Coronary calcifications. Abdomen/Pelvis: Liver: No acute abnormality or suspicious lesions. Biliary: Cholecystectomy Stomach: No significant focal abnormality. Duodenum: No significant focal abnormality. Pancreas: No significant abnormality. Spleen: No significant abnormality. Adrenal: No suspicious lesions. Kidney/ureter: No hydronephrosis. No renal calculi. Left renal scarring is similar. Retroperitoneum: No retroperitoneal adenopathy. Vascular: No aneurysm. Atherosclerosis. Bowel: Diverticulosis without evidence of acute diverticulitis.. Normal appendix. Peritoneum: No ascites or free air. Bladder: Grossly unremarkable. Reproductive: No adnexal masses. Bones: No acute fracture. Other: n/a IMPRESSION: 1. No acute intracranial abnormality. Remote infarcts including at the right occipital l obe. MRI could further evaluate if there is concern for acute infarct. 2. No acute fracture or traumatic malalignment of the cervical spine. 3. No acute findings within the chest, abdomen, or pelvis.
[2023-10-31 13:47] LABS: Albumin 3.9 g/dL (3.4-5.0); Anion Gap 9.1 mEq/L (5.0-15.0); Bilirubin Direct 0.2 mg/dL (0-0.2); Bilirubin Indirect, Calculated 0.5 mg/dL (0.2-0.8); Bilirubin Total 0.7 mg/dL (0.2-1.0); Magnesium 2.4 mg/dL (1.6-2.4); Potassium 4.1 mEq/L (3.5-5.1); Protein, Total 7.9 g/dL (6.4-8.2); Troponin High Sensitivity 4.6 pg/mL (<58.9)
[2023-10-31] MEDS ORDERED: TENECTEPLASE 50 MG/10 ML VIAL IV ONE (14:36)
--- NOTE | 2023-10-31 14:56 | ER ---
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 Near syncope feeling. ll1 Actively vomiting ham sandwich she ate earlier all over lobby floor. Coronavirus screen: Client denies travel out of the [place] in the last 14 days. At this time, the client does not indicate any symptoms associated with coronavirus-19. Ebola Screen: Patient denies travel to an Ebola-affected area in the 21 days before illness onset. Initial Sepsis Screen: Does the patient meet any 2 criteria? No. Patient's initial sepsis screen is negative. Does the patient have a suspected source of infection? No. Patient's initial sepsis screen is negative. Risk Assessment: Do you want to hurt yourself or someone else? Patient reports no desire to harm self or others. Onset of symptoms was October 31, 2023. 12:56 Method Of Arrival: Carried ll1 12:56 Acuity: IVETTE 3 ll1 Triage Assessment: 12:58 General: Appears distressed, uncomfortable, ill, Behavior is cooperative, appropriate ll1 for age, restless. Neuro: Reports a syncopal episode weakness. GI: Reports cramping, diarrhea, nausea, vomiting. Historical: - Allergies: 12:55 Bees (Anaphylaxis); ll1 12:55 Codeine; ll1 12:55 hydrocodone bitartrate; ll1 12:55 Iodinated Contrast Media - IV Dye; ll1 12:55 Levofloxacin; ll1 12:55 metronidazole; ll1 12:55 PENICILLINS; ll1 12:55 SHELLFISH; ll1 12:55 sulfamethoxazole; ll1 12:55 TRIMETHOPRIM; ll1 12:55 Wasps; ll1 - PMHx: 12:55 Alzheimers; Anxiety; CAD; CVA; Depression; Diabetes - NIDDM; GERD; High Cholesterol; ll1 Hypertension; kidney cancer; Migraines; - Immunization history:: Adult Immunizations up to date. - Infectious Disease History:: Denies. - Social history:: Smoking status: Patient denies any tobacco usage or history of. Screenin:13 [facility] ED Fall Risk Assessment (Adult) History of falling in the last 3 months, ld1 including since admission No falls in past 3 months (0 pts) Confusion or Disorientation No (0 pts) Intoxicated or Sedated No (0 pts) Impaired Gait No (0 pts) Mobility Assist Device Used No (0 pt) Altered Elimination No (0 pt) Score/Fall Risk Level 0 - 2 = Low Risk Oriented to surroundings, Maintained a safe environment, Educated pt \\T\\ family on fall prevention, incl call for assistance when getting out of bed, Assessed \\T\\ reinforced patient's understanding of fall precautions, Provided non-skid footwear, Hourly rounding (assess needs \\T\\ fall precautionary measures) done, Used ambulatory aids as needed (educated on \\T\\ assisted with), Used gait belt as appropriate. Abuse screen: Denies threats or abuse. Denies injuries from another. Nutritional screening: No deficits noted. Tuberculosis screening: No symptoms or risk factors identified. 14:48 [place] Swallow Protocol Exclusion Criteria: Unable to remain alert for testing: Yes Brief ld1 Cognitive Screen What is your name? Abnormal Where are you right now? Abnormal What year is it? Abnormal Oral Mechanism Examination Facial Symmetry: Pt unable to follow instructions. 3 oz Water Swallow Challenge: Pt able to drink all water without stopping, coughing, choking or throat clearing: No Result: FAIL Notified: Marcos Pink MD. Assessment: 13:13 Reassessment: Received patient from [facility] with emesis all over clothing and body, pt ld1 soiled in urine and feces. Cleaned and placed in clean brief, gown and purewick applied to patient. General: Appears in no apparent distress. Behavior is cooperative. Pain: Denies pain. Neuro: Level of Consciousness is awake, Oriented to person, place. Cardiovascular: Capillary refill < 3 seconds Patient's skin is warm and dry. Respiratory: Airway is patent Respiratory effort is even, unlabored. GI: Abdomen is round non-distended. GI: No signs and/or symptoms were reported involving the gastrointestinal system. Pt is actively vomiting undigested food, Reports nausea, vomiting. : No signs and/or symptoms were reported regarding the genitourinary system. EENT: No signs and/or symptoms were reported regarding the EENT system. Derm: No signs and/or symptoms reported regarding the dermatologic system. Musculoskeletal: No signs and/or symptoms reported regarding the musculoskeletal system. 14:15 Reassessment: Notified ERP of pt status change and abnormal VS. ERP at bedside with ld1 patient. 14:15 Neuro: Level of Consciousness is confused, Oriented to none Supervisor Extrusion are weak on right ld1 Speech with expressive aphasia noted, unable to speak. pt trying to take off blood pressure cuff and IV with left arm, kicking left leg into air. Unable to move right arm and leg. Unable to communicate, respond to questions. Pt not able to make eye contact at this time. Notified ERP. 14:35 Reassessment: ERP on phone with son - son states "I give consent for my mother to ld1 receive TNK.". 14:36 Reassessment: Code stroke called due to status change at this time. ld1 15:51 Reassessment: Pt leaving with EMS Patient states symptoms have not improved. ld1 Vital Signs: 12:56 Pulse 109; Resp 22; Temp 97.8(TE); Pulse Ox 93% on R/A; Height 5 ft. 2 in. ; ll1 13:33 Pulse 95; Resp 18; Pulse Ox 94% on R/A; ld1 13:38 BP 247 / 140; ld1 14:31 BP 195 / 107; Pulse 77; Resp 21; Pulse Ox 93% on R/A; ld1 14:33 Weight 66.22 kg; ld1 14:50 BP 171 / 88; Pulse 73; Resp 20; Pulse Ox 93% on 2 lpm NC; ld1 15:00 BP 189 / 99; Pulse 17; Resp 18; Pulse Ox 98% on 2 lpm NC; ld1 15:20 BP 202 / 117; Pulse 75; Resp 18; Pulse Ox 98% on 2 lpm NC; ld1 15:25 BP 202 / 102; Pulse 78; Resp 15; Pulse Ox 97% on 2 lpm NC; ld1 15:30 BP 195 / 115; Pulse 77; Resp 20; Pulse Ox 97% on 2 lpm NC; ld1 15:35 BP 160 / 104; Pulse 67; Resp 16; Pulse Ox 97% on 2 lpm NC; ld1 15:40 BP 195 / 98; Pulse 73; Resp 19; Pulse Ox 97% on R/A; ld1 NIH Stroke Scale Scores: 14:45 NIHSS Score: 18 ld1 14:49 NIHSS Score: 18 bi ED Course: 12:38 Patient arrived in ED. im 12:47 Marcos Pink MD is Attending Physician. bi 12:55 Arm band placed on Patient placed in an exam room, on a stretcher. ll1 12:57 Triage completed. ll1 13:07 Loly Augustin, MARCI is Primary Nurse. ld1 13:11 CT Traumagram (Head C Spine CAP wo con) In Process Unspecified. EDMS 13:13 Patient has correct armband on for positive identification. Placed in gown. Bed in low ld1 position. Call light in reach. Side rails up X2. case monitor on. Pulse ox on. NIBP on. Door closed. Noise minimized. Warm blanket given. 13:13 No provider procedures requiring assistance completed. Inserted saline lock: 22 gauge ld1 in left antecubital area, using aseptic technique. Blood collected. 13:18 XRAY Chest (1 view) In Process Unspecified. EDMS 13:29 EKG done, by ED staff, reviewed by Marcos Pink MD. bc6 14:15 Inserted saline lock: 18 gauge in right EJ, using aseptic technique. ,using aseptic ld1 technique. By Dr. Pink. 14:53 Ruiz cath inserted, using sterile technique, 16 Fr., by nd, balloon inflated, to zm gravity drainage, Patient tolerated well. 15:21 \\T\\[address] Pink/ \\T\\1500 administrative approval given by Mirela Polanco Rn/ patient has been accepted to [facility] ED/ Dr. Stephania Garibay has accepted the patient in transfer. report o be called to [phone]. 15:54 Patient transferred, IV remains in place. ld1 Administered Medications: 13:07 Drug: NS 0.9% IV 500 ml IV at bolus once Route: IV; Rate: bolus; Site: left antecubital;ld1 13:08 Drug: NS 0.9% IV 1000 ml IV at 125 ml/hr continuous Route: IV; Rate: 125 ml/hr; Site: ld1 left antecubital; 13:13 Drug: Ondansetron IVP 4 mg IVP once; over 2 minutes Route: IVP; Site: left antecubital; ld1 13:42 Drug: Labetalol IV 20 mg IV at calculated rate once over 2 mins; Verbal order per Dr. ruba Pink Route: IV; Rate: calculated rate; Infused Over: 2 mins; Site: left antecubital; 14:30 Drug: Labetalol IV 20 mg IV at per protocol once over 2 mins; IN 10 MIN IF SYS GREATER ld1 THAN 190 Route: IV; Rate: per protocol; Infused Over: 2 mins; Site: left antecubital; 14:40 Drug: Labetalol IV 20 mg IV at calculated rate once over 2 mins; Per Dr. Pink ld1 Route: IV; Rate: calculated rate; Infused Over: 2 mins; Site: left antecubital; 14:48 Drug: TNK FOR STROKE - Tenecteplase IV (Administer 10 ml NS flush BEFORE and ld1 AFTER tenecteplase) 0.25 mg/kg IV at per protocol once; MAX DOSE 25 mg, IVP over 5 seconds {Co-Signature: iw (Nicole Lo RN).} Route: IV; Rate: per protocol; Site: right jugular; 15:46 Drug: Labetalol IV 20 mg IV at calculated rate once over 2 mins Route: IV; Rate: ld1 calculated rate; Infused Over: 2 mins; Site: left antecubital; 15:48 Not Given (pt left via zander): Banana Bag - (ns 0.9% 1000 ml, folic acid ivpb 1 mg, ld1 [id number] mg, multivitamin1 amp) IV at 125 ml/hr once 15:48 Not Given (pt left with zander): [id number] mg IVP once ld1 15:48 Not Given (Other Intervention Used): [id number] mg IVP once; dilute with 10 mL 0.9% ld1 NaCl; give over 2 minutes Medication: 13:13 VIS not applicable for this client. ld1 Outcome: 14:56 ER care complete, transfer ordered by MD. pat 15:53 Transferred by ground EMS to [facility], ld1 15:53 Condition: unchanged 15:53 Instructed on the need for transfer, 15:54 Patient left the ED. ld1 NIH Stroke Scale - NIH Stroke Score Date: 10/31/2023 Time: 14:45 Total Score = 18 10. Dysarthria (speech clarity - read or repeat words) - 2(Severe) 11. Extinction and Inattention (visual/tactile/auditory/spatial/personal) - 0(No abnormality) 1a. Level of Consciousness (LOC) - 0(Alert) 1b. Level of Consciousness (LOC) (Month \\T\\ Age) - 2(Neither) 1c. LOC Commands (Open \\T\\ Closes Eyes/Air Brake Man) - 1(One) 2. Best Gaze (Lateral Gaze Paresis) - 1(Partial gaze palsy) 3. Visual Field Loss - 0(No visual loss) 4. Facial Palsy - 0(Normal) 5a. Left Arm: Motor (10-second hold) - 0(No drift) 5b. Right Arm: Motor (10-second hold) - 4(No movement) 6a. Left Leg: Motor (5-second hold - always test supine) - 0(No drift) 6b. Right Leg: Motor (5-second hold - always test supine) - 4(No movement) 7. Limb Ataxia (finger/nose \\T\\ heel/hansen - test with eyes open) - 2(Present in two limbs) 8. Sensory Loss (pinprick arms/legs/face) - 0(Normal) 9. Best Language: Aphasia (description/naming/reading) - 2(Severe aphasia) Initials: ld1 NIH Stroke Scale - NIH Stroke Score Date: 10/31/2023 Time: 14:49 Total Score = 18 10. Dysarthria (speech clarity - read or repeat words) - 2(Severe) 11. Extinction and Inattention (visual/tactile/auditory/spatial/personal) - 0(No abnormality) 1a. Level of Consciousness (LOC) - 0(Alert) 1b. Level of Consciousness (LOC) (Month \\T\\ Age) - 2(Neither) 1c. LOC Commands (Open \\T\\ Closes Eyes/Air Brake Man) - 1(One) 2. Best Gaze (Lateral Gaze Paresis) - 1(Partial gaze palsy) 3. Visual Field Loss - 0(No visual loss) 4. Facial Palsy - 0(Normal) 5a. Left Arm: Motor (10-second hold) - 0(No drift) 5b. Right Arm: Motor (10-second hold) - 4(No movement) 6a. Left Leg: Motor (5-second hold - always test supine) - 0(No drift) 6b. Right Leg: Motor (5-second hold - always test supine) - 4(No movement) 7. Limb Ataxia (finger/nose \\T\\ heel/hansen - test with eyes open) - 2(Present in two limbs) 8. Sensory Loss (pinprick arms/legs/face) - 0(Normal) 9. Best Language: Aphasia (description/naming/reading) - 2(Severe aphasia) Initials: [facility] Signatures: Dispatcher [employer] EDMarcos Jiménez MD MD cha Botello, Elizabeth eb Lewis, Lynsay RN RN ll1 Loly Augustin RN RN ld1 Fiona Rivera Breana 6 [place] Irene RN iw Corrections: (The following items were deleted from the chart) 13:35 13:33 BP 247 / 140; Pulse 95bpm; Resp 18bpm; Pulse Ox 94% RA; ld1 ld1
--- NOTE | 2023-10-31 14:56 | EDPHYS ---
Physician Documentation [facility] Name: Amber Acosta Age: 77 yrs Sex: Female : 1945 Arrival Date: 10/31/2023 Time: 12:34 Bed 8 Private MD: ED Physician Marcos Pink HPI: 10/30 14:44 This 77 yrs old Female presents to ER via Carried with complaints of Near bi Syncope, Vomiting. 14:44 The patient has experienced near-syncope, felt generally weak, WENT TO FLOOR. Onset: bi The symptoms/episode began/occurred at 12:25. Duration: This was a single episode, that is still ongoing. Context: the episode(s) was witnessed, by family, by a significant other, SON JANA. Associated injury: The patient did not suffer any apparent associated injury. Associated signs and symptoms: Pertinent positives: agitation, confusion, weakness, DENSE LEFT HEMIPARESIS. Current symptoms: paralysis or paresis, of the left arm and left leg, that is severe. The patient has not experienced similar symptoms in the past. Historical: - Allergies: 12:55 Bees (Anaphylaxis); ll1 12:55 Codeine; ll1 12:55 hydrocodone bitartrate; ll1 12:55 Iodinated Contrast Media - IV Dye; ll1 12:55 Levofloxacin; ll1 12:55 metronidazole; ll1 12:55 PENICILLINS; ll1 12:55 SHELLFISH; ll1 12:55 sulfamethoxazole; ll1 12:55 TRIMETHOPRIM; ll1 12:55 Wasps; ll1 - PMHx: 12:55 Alzheimers; Anxiety; CAD; CVA; Depression; Diabetes - NIDDM; GERD; High Cholesterol; ll1 Hypertension; kidney cancer; Migraines; - Immunization history:: Adult Immunizations up to date. - Infectious Disease History:: Denies. - Social history:: Smoking status: Patient denies any tobacco usage or history of. ROS: 14:47 Constitutional: Negative for fever, chills, and weight loss, Eyes: Negative for injury, bi pain, redness, and discharge, ENT: Negative for injury, pain, and discharge, Neck: Negative for injury, pain, and swelling, Cardiovascular: Negative for chest pain, palpitations, and edema, Respiratory: Negative for shortness of breath, cough, wheezing, and pleuritic chest pain, Abdomen/GI: Negative for abdominal pain, nausea, vomiting, diarrhea, and constipation, Back: Negative for injury and pain, : Negative for injury, bleeding, discharge, and swelling, Skin: Negative for injury, rash, and discoloration, Psych: Negative for depression, anxiety, suicide ideation, homicidal ideation, and hallucinations, Allergy/Immunology: Negative for hives, rash, and allergies, Endocrine: Negative for neck swelling, polydipsia, polyuria, polyphagia, and marked weight changes, 14:47 MS/extremity: Positive for decreased range of motion, of the left arm and left leg, Exam: 14:47 Radiologist reports: CT TRAUMA NEG bi 14:49 Chest/axilla: Normal chest wall appearance and motion. Nontender with no deformity. bi No lesions are appreciated. Cardiovascular: Regular rate and rhythm with a normal S1 and S2. No gallops, murmurs, or rubs. Normal PMI, no JVD. No pulse deficits. Respiratory: Lungs have equal breath sounds bilaterally, clear to auscultation and percussion. No rales, rhonchi or wheezes noted. No increased work of breathing, no retractions or nasal flaring. Abdomen/GI: Soft, non-tender, with normal bowel sounds. No distension or tympany. No guarding or rebound. No evidence of tenderness throughout. Back: No spinal tenderness. No costovertebral tenderness. Full range of motion. Skin: Warm, dry with normal turgor. Normal color with no rashes, no lesions, and no evidence of cellulitis. MS/ Extremity: Pulses equal, no cyanosis. Neurovascular intact. Full, normal range of motion. 14:49 ECG was reviewed by the Attending Physician. Vital Signs: 12:56 Pulse 109; Resp 22; Temp 97.8(TE); Pulse Ox 93% on R/A; Height 5 ft. 2 in. ; ll1 13:33 Pulse 95; Resp 18; Pulse Ox 94% on R/A; ld1 13:38 BP 247 / 140; ld1 14:31 BP 195 / 107; Pulse 77; Resp 21; Pulse Ox 93% on R/A; ld1 14:33 Weight 66.22 kg; ld1 14:50 BP 171 / 88; Pulse 73; Resp 20; Pulse Ox 93% on 2 lpm NC; ld1 15:00 BP 189 / 99; Pulse 17; Resp 18; Pulse Ox 98% on 2 lpm NC; ld1 15:20 BP 202 / 117; Pulse 75; Resp 18; Pulse Ox 98% on 2 lpm NC; ld1 15:25 BP 202 / 102; Pulse 78; Resp 15; Pulse Ox 97% on 2 lpm NC; ld1 15:30 BP 195 / 115; Pulse 77; Resp 20; Pulse Ox 97% on 2 lpm NC; ld1 15:35 BP 160 / 104; Pulse 67; Resp 16; Pulse Ox 97% on 2 lpm NC; ld1 15:40 BP 195 / 98; Pulse 73; Resp 19; Pulse Ox 97% on R/A; ld1 NIH Stroke Scale Scores: 14:45 NIHSS Score: 18 ld1 14:49 NIHSS Score: 18 bi MDM: 12:47 Patient medically screened. bi 14:53 Differential diagnosis: CVA, TIA, Dementia, paralysis. Differential Diagnosis: cardiac bi arrhythmia, cerebrovascular accident, seizure, vasovagal episode. TNKase (Tenecteplase) Screening: Indications: Definite evidence of stroke, ischemic, embolic, or hypertensive: Yes. Treatment will start within 4.5 hours onset of symptoms: Yes. No evidence of intracranial hemorrhage or CT of head and no evidence of peripheral hemorrhage or recent CVA: Yes. Consent for thrombolytic therapy: Yes. Contraindications:. Data reviewed: vital signs, nurses notes, EMS record, lab test result(s), EKG, radiologic studies, CT scan, plain films. Consideration of Admission/Observation Escalation of care including admission/observation considered. I considered the following discharge prescriptions or medication management in the emergency department Medications were administered in the Emergency Department. See MAR. Historians other than the Patient: Daughter/Son: PEPE. 14:54 Independent interpretation of the following test(s) in the Emergency Department EKG: bi See my EKG interpretation above. Test considered but Not performed: MRI: NO CTA ALLERGIC. 14:57 ED course: [place] ACUTE CVA, TNK ... JANA AGREED. [facility] 10/30 12:48 Order name: Basic Metabolic Panel; Complete Time: 14:01 bi 10/30 12:48 Order name: CBC with Diff; Complete Time: 14:01 bi 10/30 12:48 Order name: LFT's; Complete Time: 14: 10/30 12:48 Order name: Magnesium; Complete Time: 14:10/30 12:48 Order name: NT PRO-BNP; Complete Time: 14:10/30 12:48 Order name: PT-INR; Complete Time: 14:10/30 12:48 Order name: Troponin HS; Complete Time: 14:10/30 12:48 Order name: Urinalysis w/ reflexes 10/30 12:48 Order name: Lipase; Complete Time: 14:10/30 12:48 Order name: XRAY Chest (1 view); Complete Time: 14:10/30 12:48 Order name: CT Traumagram (Head C Spine CAP wo con); Complete Time: 14:10/30 12:48 Order name: EKG; Complete Time: 12:49 10/30 12:48 Order name: Cardiac monitoring; Complete Time: 13:10/30 12:48 Order name: EKG - Nurse/Tech; Complete Time: 13:29 10/30 12:48 Order name: IV Saline Lock; Complete Time: 13:10/30 12:48 Order name: Labs collected and sent; Complete Time: 13:08 10/30 12:48 Order name: O2 Per Protocol; Complete Time: 12:50 10/30 12:48 Order name: O2 Sat Monitoring; Complete Time: 12:50 10/30 14:25 Order name: Vital Signs; Complete Time: 14:32 bi EC:49 Rate is 81 beats/min. Rhythm is regular. QRS [place] is Normal. IN interval is normal. QT bi interval is normal. No Q waves. T waves are Normal. No ST changes noted. Clinical impression: LVH and No evidence of ischemia. Interpreted by me. Reviewed by me. Administered Medications: 13:07 Drug: NS 0.9% IV 500 ml IV at bolus once Route: IV; Rate: bolus; Site: left antecubital;ld1 13:08 Drug: NS 0.9% IV 1000 ml IV at 125 ml/hr continuous Route: IV; Rate: 125 ml/hr; Site: ld1 left antecubital; 13:13 Drug: Ondansetron IVP 4 mg IVP once; over 2 minutes Route: IVP; Site: left antecubital; ld1 13:42 Drug: Labetalol IV 20 mg IV at calculated rate once over 2 mins; Verbal order per Dr. ruba Pink Route: IV; Rate: calculated rate; Infused Over: 2 mins; Site: left antecubital; 14:30 Drug: Labetalol IV 20 mg IV at per protocol once over 2 mins; IN 10 MIN IF SYS GREATER ld1 THAN 190 Route: IV; Rate: per protocol; Infused Over: 2 mins; Site: left antecubital; 14:40 Drug: Labetalol IV 20 mg IV at calculated rate once over 2 mins; Per Dr. Pink ld1 Route: IV; Rate: calculated rate; Infused Over: 2 mins; Site: left antecubital; 14:48 Drug: TNK FOR STROKE - Tenecteplase IV (Administer 10 ml NS flush BEFORE and ld1 AFTER tenecteplase) 0.25 mg/kg IV at per protocol once; MAX DOSE 25 mg, IVP over 5 seconds {Co-Signature: iw (Nicole Lo RN).} Route: IV; Rate: per protocol; Site: right jugular; 15:46 Drug: Labetalol IV 20 mg IV at calculated rate once over 2 mins Route: IV; Rate: ld1 calculated rate; Infused Over: 2 mins; Site: left antecubital; 15:48 Not Given (pt left via zander): Banana Bag - (ns 0.9% 1000 ml, folic acid ivpb 1 mg, ld1 [id number] mg, multivitamin1 amp) IV at 125 ml/hr once 15:48 Not Given (pt left with zander): [id number] mg IVP once ld1 15:48 Not Given (Other Intervention Used): [id number] mg IVP once; dilute with 10 mL 0.9% ld1 NaCl; give over 2 minutes Disposition Summary: 10/31/23 14:56 Transfer Ordered Notes: Transfer Location: [facility] bi Reason: Higher level of care bi Condition: Serious bi Problem: new bi Symptoms: are unchanged bi Accepting Physician: TO NICU(10/31/23 15:54) ld1 Diagnosis - Aphasia following cerebral infarction bi - Cerebral infarction, unspecified - ACUTE, LEFT SIDED CVA WITH DENSE HEMIPARESIS bi RIGHT - Essential (primary) hypertension bi Forms: - Medication Reconciliation Form bi - SBAR form bi Critical care time excluding procedures: 14:56 Critical care time: Bedside Care: 30 minutes, Consultation: 15 minutes, Family bi Intervention: 15 minutes. Total time: 60 minutes NIH Stroke Scale - NIH Stroke Score Date: 10/31/2023 Time: 14:45 Total Score = 18 10. Dysarthria (speech clarity - read or repeat words) - 2(Severe) 11. Extinction and Inattention (visual/tactile/auditory/spatial/personal) - 0(No abnormality) 1a. Level of Consciousness (LOC) - 0(Alert) 1b. Level of Consciousness (LOC) (Month \T\ Age) - 2(Neither) 1c. LOC Commands (Open \T\ Closes Eyes/Wire Bender) - 1(One) 2. Best Gaze (Lateral Gaze Paresis) - 1(Partial gaze palsy) 3. Visual Field Loss - 0(No visual loss) 4. Facial Palsy - 0(Normal) 5a. Left Arm: Motor (10-second hold) - 0(No drift) 5b. Right Arm: Motor (10-second hold) - 4(No movement) 6a. Left Leg: Motor (5-second hold - always test supine) - 0(No drift) 6b. Right Leg: Motor (5-second hold - always test supine) - 4(No movement) 7. Limb Ataxia (finger/nose \T\ heel/hansen - test with eyes open) - 2(Present in two limbs) 8. Sensory Loss (pinprick arms/legs/face) - 0(Normal) 9. Best Language: Aphasia (description/naming/reading) - 2(Severe aphasia) Initials: ld1 NIH Stroke Scale - NIH Stroke Score Date: 10/31/2023 Time: 14:49 Total Score = 18 10. Dysarthria (speech clarity - read or repeat words) - 2(Severe) 11. Extinction and Inattention (visual/tactile/auditory/spatial/personal) - 0(No abnormality) 1a. Level of Consciousness (LOC) - 0(Alert) 1b. Level of Consciousness (LOC) (Month \T\ Age) - 2(Neither) 1c. LOC Commands (Open \T\ Closes Eyes/Wire Bender) - 1(One) 2. Best Gaze (Lateral Gaze Paresis) - 1(Partial gaze palsy) 3. Visual Field Loss - 0(No visual loss) 4. Facial Palsy - 0(Normal) 5a. Left Arm: Motor (10-second hold) - 0(No drift) 5b. Right Arm: Motor (10-second hold) - 4(No movement) 6a. Left Leg: Motor (5-second hold - always test supine) - 0(No drift) 6b. Right Leg: Motor (5-second hold - always test supine) - 4(No movement) 7. Limb Ataxia (finger/nose \T\ heel/hansen - test with eyes open) - 2(Present in two limbs) 8. Sensory Loss (pinprick arms/legs/face) - 0(Normal) 9. Best Language: Aphasia (description/naming/reading) - 2(Severe aphasia) Initials: bi Signatures: Dispatcher [employer] EDMarcos Jiménez MD MD cha Lewis, Lynsay RN RN ll1 Loly Augustin RN RN ld1 Nicole Lo RN iw Corrections: (The following items were deleted from the chart) 12:49 12:49 BASIC METABOLIC PANEL+C.LAB.BRZ ordered. EDMS EDMS 12:49 12:49 CBC+H.LAB.BRZ ordered. EDMS EDMS 12:49 12:49 HEPATIC FUNCTION+C.LAB.BRZ ordered. EDMS EDMS 12:49 12:49 MAGNESIUM+C.LAB.BRZ ordered. EDMS EDMS 12:49 12:49 PROBNP+C.LAB.BRZ ordered. EDMS EDMS 12:49 12:49 PROTIME (+INR)+COAG.LAB.BRZ ordered. EDMS EDMS 12:49 12:49 Troponin High Sensitivity+C.LAB.BRZ ordered. EDMS EDMS 12:49 12:49 Urinalysis+U.LAB.BRZ ordered. EDMS EDMS 12:49 12:49 LIPASE+C.LAB.BRZ ordered. EDMS EDMS 14:57 14:56 TO NICU bi bi 15:54 14:57 TO NICU bi ld1
[2023-10-31 15:29] LABS: Specific Gravity 1.023 (1.005-1.030); Sqamous Epithelial <5 /HPF (None Seen); Urine Bacteria <20 /HPF (<20); Urine Bilirubin NEGATIVE (Negative); Urine Blood Negative (Negative); Urine Clarity Clear (Clear); Urine Color Light-Yellow (Yellow); Urine Culture Reflex Order NOT NEEDED; Urine Glucose NEGATIVE (Negative); Urine Ketones NEGATIVE (Negative); Urine Microscopic Reflex YN ORDER UMIC; Urine Mucus Slight /HPF (None Seen); Urine Nitrite NEGATIVE (Negative); Urine Protein TRACE (Negative); Urine RBC <5 /HPF (None Seen); Urine Urobilinogen Normal (Normal); Urine WBC <5 /HPF (<5); Urine pH 6.5 (5.0-7.0)
[2023-10-31 19:36] VITALS: BP 195/98; TEMP 97.8; O2SAT 97
--- NOTE | 2023-11-01 10:55 | EKG ---
Test Date: 2023-10-31 Test Time: 13:27:08 Public Area Attendant: JOAO MEASUREMENT RESULTS: Intervals: Rate: 81 AR: 140 QRSD: 74 QT: 388 QTc: 450 [place]: P: 69 AR: 140 QRS: -5 T: 69 INTERPRETIVE STATEMENTS: Normal sinus rhythm Moderate voltage criteria for LVH, may be normal variant Nonspecific ST and T wave abnormality Abnormal ECG Compared to ECG 10/09/2023 10:55:37 Left ventricular hypertrophy now present ST (T wave) deviation now present Sinus bradycardia no longer present Electronically Signed On 11-01-23 10:54:06 CDT by Yariel Chambers
== END 2023-10-31 15:54 | disposition short-term general hospital (02) ==
LOC: ER 12:34
DX: I63.9 Cerebral infarction, unspecified (principal); G81.91 Hemiplegia, unspecified affecting right dominant side; I10 Essential (primary) hypertension; R29.718 NIHSS score 18
CPT/HCPCS: 92977; 93005; 85025; 81001; 80048; 36415; 83735; 85610; 80076; 84484; 83690; 83880; 70450; 71250; 72125; 71045; 51702; 99285; J3101; J2405; J7040; J7030